=== PATIENT | male | born 1970 | race Two or more races ===

== ENCOUNTER 2020-05-08 01:50 | Inpatient (IN) | payer OTHER, SELFPAY ==
[2020-05-11 02:47] VITALS: BMI 39.0
[2020-05-12] VITALS: BP 100/60; PULSE 57; RESP 20; TEMP 36.3; O2SAT 95
[2020-05-12 04:00] VITALS: BP 109/72; PULSE 68; RESP 16; TEMP 36.7; O2SAT 94
[2020-05-12] MEDS: Levothyroxine Sodium 50 MCG TABLET PO (06:18)
[2020-05-12] MEDS: Omeprazole 20 MG CAPSULE.DR PO (06:18)
[2020-05-12] MEDS: oxyCODONE HCl Immed Release 5 MG TABLET 10 MG PO ×3 (06:20→15:18)
--- NOTE | 2020-05-12 07:40 | PM.PNGS ---
Subjective Subjective Interval history: C/o throat pain and body aches, subjective fevers this morning. Has some mild incisional pain but comfortable. Tolerating clears. Passing flatus and had another BM yesterday. Ready to try solid food. <Ale Nielson PA-C Last Filed: 05/12/20 07:53> Physical Exam Vital Signs and I&O and Narrative: Vital Signs and I&O: Vital Signs Temp 98.1 F 05/12/20 04:00 Pulse 68 05/12/20 04:00 Resp 16 05/12/20 04:00 BP 109/72 05/12/20 04:00 Pulse Ox 94 05/12/20 04:00 Intake & Output 05/11/20 05/12/20 05/12/20 18:59 06:59 18:59 Intake Total 120 / 120 Output Total 350 / 350 Balance -230 / -230 Urine Output (Aver age ml/kg/hr) 0.23 Intake: Intake, Oral Sandi unt 120 / 120 Output: Output, Urine Am ount 350 / 350 Other: Number of Unmeas ured Voids 1 Urine Urinal Urine Color Yellow Body Mass Index 39.0 <Ale Nielson PA-C Last Filed: 05/12/20 07:53> Const: General: no acute distress and alert <SHIVAM Bowers Filed: 05/12/20 07:53> Nutritional Appearance: well nourished <SHIVAM Bowers Filed: 05/12/20 07:53> Orientation/consciousness: patient oriented x3 <SHIVAM Bowers Filed: 05/12/20 07:53> HENMT: Throat: Yes abnormal tonsil (mildly erythematous) <SHIVAM Bowers Last Filed: 05/12/20 07:53> Neck: Neck: Yes supple <SHIVAM Bowers Filed: 05/12/20 07:53> Lymphatic: lymphadenopathy (b/l submandibular nodes) <SHIVAM Bowers Last Filed: 05/12/20 07:53> Resp: Effort & Inspection: normal respiratory effort <SHIVAM Bowers Last Filed: 05/12/20 07:53> Cardio: Rate: regular rate <SHIVAM Bowers Last Filed: 05/12/20 07:53> GI: Inspection: Yes incision (clean, cassidy intact) and Yes other (nondistended) <SHIVAM Bowers Last Filed: 05/12/20 07:53> Palpation (GI): Soft to palpation and Tenderness to palpation present (GI) (mild incisional tenderness) <SHIVAM Bowers Last Filed: 05/12/20 07:53> Auscultation: normal bowel sounds <SHIVAM Bowers Last Filed: 05/12/20 07:53> Skin: General skin exam: no rashes or lesions noted <SHIVAM Bowers Last Filed: 05/12/20 07:53> Neuro: General: patient oriented x3 <SHIVAM Bowers Filed: 05/12/20 07:53> Extrem: General: Yes no clubbing, cyanosis or edema <SHIVAM Bowers Last Filed: 05/12/20 07:53> Progress Note: A&P Assessment and plan (1) SBO (small bowel obstruction): Problem details: secondary to LLQ incisional hernia <SHIVAM Bowers Last Filed: 05/12/20 07:53> Status: Acute <SHIVAM Bowers Last Filed: 05/12/20 07:53> Assessment and Plan: Resolved. Now with good GI function. Will advance to solid diet. <SHIVAM Bowers Last Filed: 05/12/20 07:53> (2) Incisional hernia: Status: Acute <SHIVAM Bowers Last Filed: 05/12/20 07:53> Assessment and Plan: Continue pain control. Likely home today if tolerating solid diet. <SHIVAM Bowers Last Filed: 05/12/20 07:53> pt tolerating diet good GI function pain level ok looks well abd soft ok to dc home instructed to not do any lifting - he says he ahd been doing heavy lifting at work prior to hernia recurrence seen and examined - agree with CHRISSY Nielson <Benson Nowak MD - Last Filed: 05/12/20 07:58> (3) Throat pain: Status: Acute <Ale Nielson PA-C - Last Filed: 05/12/20 07:53> Assessment and Plan: Likely viral. C/o malaise, body aches and subjective fevers. Will obtain Covid-19, flu and strep test. <Ale Nielson PA-C - Last Filed: 05/12/20 07:53> Fall Risk Details Current Medications: Current Medications Generic Name Dose Route Start Last Admin Trade Name Freq PRN Reason Stop Dose Admin Acetaminophen 650 mg 05/12/20 00:00 Acetaminophen 325 Mg Tablet PO Q6H PRN FEVER/MILD PAIN Albuterol Sulfate 2 puff 05/12/20 00:00 Albuterol Sulfate 90 Mcg 18 Gm Inhaler INHALE Q4H PRN ASTHMA Benzocaine 1 lozenge 05/12/20 00:00 05/12/20 04:05 Throat Lozenge, Medicated 1 Lozenge Lozenge MUCOUS MEM 1 lozenge Q4H PRN Administration Sore Throat Docusate Sodium 100 mg 05/12/20 09:00 Docusate Sodium 100 Mg Capsule PO BID [facility] Escitalopram Oxalate 10 mg 05/12/20 09:00 Escitalopram Oxalate 10 Mg Tablet PO DAILY [facility] Famotidine 20 mg 05/12/20 00:00 Famotidine/Pf 20 Mg/2 Ml Vial IVPUSH Q12H PRN Heartburn Fluticasone/Vilanterol 1 puff 05/12/20 08:00 Fluticasone/Vilanterol 100/25 Blst.W.Dev INHALE RDAILY [facility] Hydrochlorothiazide 12.5 mg 05/12/20 09:00 Hydrochlorothiazide 12.5 Mg Tablet PO DAILY [facility] Protocol Levothyroxine Sodium 50 mcg 05/12/20 06:00 05/12/20 06:18 Levothyroxine Sodium 50 Mcg Tablet PO 50 mcg DAILY@0600 [facility] Administration Loratadine 10 mg 05/12/20 09:00 Loratadine 10 Mg Tablet PO DAILY [facility] Montelukast Sodium 10 mg 05/12/20 21:00 Montelukast Sodium 10 Mg Tablet PO BEDTIME [facility] Morphine Sulfate 4 mg 05/12/20 00:00 Morphine Sulfate 4 Mg/Ml Cartridge IVPUSH Q3H PRN Pain, Severe (Pain Scale 7-10) Omeprazole 20 mg 05/12/20 06:30 05/12/20 06:18 Omeprazole 20 Mg Capsule.Dr PO 20 mg DAILY@0630 [facility] Administration Ondansetron HCl 4 mg 05/12/20 00:00 Ondansetron Hcl 4 Mg/2 Ml Vial IVPUSH Q8H PRN Nausea and Vomiting Oxycodone HCl 5 mg 05/12/20 00:00 Oxycodone Hcl Immed Release 5 Mg Tablet PO Q4H PRN Pain, Moderate (Pain Scale 4-6 Oxycodone HCl 10 mg 05/12/20 00:00 05/12/20 06:20 Oxycodone Hcl Immed Release 5 Mg Tablet PO 10 mg Q4H PRN Administration Pain, Severe (Pain Scale 7-10) Sodium Chloride 2 ml 05/12/20 00:00 05/12/20 00:00 0.9 % Sodium Chloride Flush 3 Ml Syringe IVFLUSH 2 ml QSHIFT [facility] Administration <Ale Nielson PA-C - Last Filed: 05/12/20 07:53> Time Spent With Patient Time: Total time spent is greater than 50% in coordination of care (as documented) at patient's floor/unit and/or counseling patient: <SHIVAM Bowers Last Filed: 05/12/20 07:53> Time with patient: less than 15 minutes <SHIVAM Bowers Last Filed: 05/12/20 07:53> No Severe Sepsis: No Severe Sepsis <SHIVAM Bowers Last Filed: 05/12/20 07:53>
[2020-05-12] MEDS: Fluticasone/Vilanterol 100/25 BLST.W.DEV 1 PUFF INHALE (07:53)
[2020-05-12 07:59] VITALS: BP 116/75; PULSE 73; RESP 18; TEMP 37.3; O2SAT 95
[2020-05-12] MEDS: Escitalopram Oxalate 10 MG TABLET PO (08:20)
[2020-05-12] MEDS: Loratadine 10 MG TABLET PO (08:20)
[2020-05-12] MEDS: Docusate Sodium 100 MG CAPSULE PO (08:20)
[2020-05-12] MEDS: 0.9 % Sodium Chloride Flush 3 ML SYRINGE 2 ML IVFLUSH ×2 (08:21)
[2020-05-12] MEDS: hydroCHLOROthiazide 12.5 MG TABLET PO (08:21)
[2020-05-12 11:38] VITALS: BP 119/62; PULSE 76; RESP 18; TEMP 36.9; O2SAT 96
[2020-05-12 11:59] LABS: Influenza A PCR NEGATIVE (Negative); Influenza B PCR NEGATIVE (Negative); Resp Syncy Virus RNA Qual PCR NEGATIVE (Negative)
--- NOTE | 2020-05-12 12:49 | MHC.CM.PN ---
Addendum entered by Rosey Goodwin 05/12/20 13:17: NURSE FRONT END TECHNICIAN NOTIFIED JOHNNIE AT [facility] . THAT PATIENT WAS ANTICIPATED TO BE DISCHARGED TODAY , THEY GONZALES PROVID4 PHNE FOLLOW UP WITH HIM Original Note: nurse career development associate note electronic medical record reviewed , case discused with staff nurse , patient is advancing in his diet and per nursing anticipated to be discharged home today and will not need any services patient instructed to call primary care physician post hospital discharge for folow up. transportation family surgiical follow up per discharge instructions.
--- NOTE | 2020-05-12 13:29 | HO.POSTANES ---
Post Anesthesia Evaluation Post Anesthesia Evaluation Vital Signs: Vital Signs Temp Pulse Resp BP Pulse Ox 05/12/20 11:38 98.4 F 76 18 119/62 96 05/12/20 07:59 99.2 F 73 18 116/75 95 05/12/20 04:00 98.1 F 68 16 109/72 94 Anesthesia: General LMA Mental Status: Awake Pain Control: Satisfactory Nausea/Vomiting: None Hydration: Adequate Anesthesia-Related Issues: No Anes. Related Issues
--- NOTE | 2020-05-16 10:41 | PM.DS ---
DS: Providers Provider Date of admission: 05/08/20 01:50 Primary care physician: Adelina Stacy MD DS: Diagnosis Discharge Diagnosis (1) Incisional hernia: Status: Acute (2) SBO (small bowel obstruction): Status: Acute Problem details: secondary to LLQ incisional hernia DS: Summary Hospital Course Hospital Course: Brief HPI: 49 year old male who had previously undergone emergency peter procedure for perforated diverticulitis. The colostomy was reversed. He subsequently developed a hernia at the LLQ colostomy site which was repaired without mesh in February of 2019. He reports a couple of months after the felt a pop and developed a lump at the repair site. He was able to reduce the lump when it occurred. He reports three days prior to admission he developed nausea, vomiting and abdominal pain. He was able to reduce the hernia himself but had to do it more frequently at home over the past few day. He had been passing flatus but reports no BM since the day before admission. CT scan was performed which revealed dilated small bowel loops with loops of bowel within the LLQ hernia. An NGT was placed in the ED and admission was requested. The patient was admitted to the surgical service for further treatment of the SBO secondary to the recurrent LLQ incisional hernia. The patient was feeling better and clinically appearing well with a reduced hernia. He expressed the desire to have the hernia repaired during this stay. He was scheduled for the procedure the following day. On 05/10/20, repair of recurrent LLQ incisional hernia with mesh was performed by Dr. Benson Nowak without complication. The patient tolerated the procedure well and was admitted back to the medical/surgical floor for observation. His NGT was removed intraoperatively. The patient had an uncomplicated recovery course. He was advanced to a clear liquid diet and then a solid diet. He continued to pass flatus and had bowel movements. He was ambulated. He had good pain control on PO analgesics. His abdominal exam remained benign and his incision was clean. He felt well and ready for discharge. He was discharged to home on 05/12/20 in stable condition. He is to follow up with Dr. Nowak in office in two weeks. PATHOLOGY: Hernia sac: mildly inflamed fibrovascular and adipose tissue consistent with hernia sac. Status at Discharge Functional status at discharge: independent ambulation Overall status at discharge: patient is progressing back to baseline Time Spent with Patient Time attestation: Total time spent providing and/or coordinating discharge services: Physical Exam Vital Signs and I&O and Narrative: Vital Signs and I&O: Vital Signs Temp 98.4 F 05/12/20 11:38 Pulse 76 05/12/20 11:38 Resp 18 05/12/20 11:38 BP 119/62 05/12/20 11:38 Pulse Ox 96 05/12/20 11:38 Body Mass Index 39.0 Const: General: comfortable, no acute distress, well developed and alert Orientation/consciousness: patient oriented x3 Eyes: Sclerae: sclerae normal Resp: Effort & Inspection: normal respiratory effort Cardio: Rate: regular rate GI: Inspection: No distended and Yes incision (clean, no erythema) Palpation (GI): Soft to palpation, Tenderness to palpation present (GI) (mild, incisional), no guarding and No Rebound tenderness present Skin: General skin exam: no rashes or lesions noted Neuro: General: patient oriented x3 Extrem: General: Yes no clubbing, cyanosis or edema DS: Data Data Completed and Pending Labs on day of discharge: Labs from last 24 hours 05/12/20 11:09 COVID-19 PCR NOT DETECTED Discharge Plan Discharge Anticipated Discharge Date/Time: 05/12/20 15:23 Patient Disposition: Home, Self-Care Referrals: Adelina Stacy MD [Primary Care Provider] - Discharge Medications: New oxycodone-acetaminophen [Percocet] 5-325 mg tablet 1 tab PO Q4-6H PRN (Reason: pain) Qty: 26 RF: 0 Continued levothyroxine 50 mcg Tablet 50 mcg PO DAILY RF: 0 hydrochlorothiazide 12.5 mg Capsule 12.5 mg PO QAM RF: 0 docusate sodium [Colace] 100 mg Capsule 100 mg PO BID RF: 0 omeprazole 20 mg Capsule,Delayed Release(Dr/Ec) 20 mg PO DAILY RF: 0 montelukast [Singulair] 10 mg Tablet 10 mg PO DAILY RF: 0 loratadine 10 mg Tablet 10 mg PO DAILY RF: 0 escitalopram oxalate [Lexapro] 10 mg Tablet 10 mg PO DAILY RF: 0 Breo Ellipta 100-25 mcg/dose Blister With Device 1 inh INHALATION DAILY RF: 0 albuterol sulfate 90 mcg/actuation Hfa Aerosol Inhaler 2 puff INHALATION Q4H PRN (Reason: ASTHMA) RF: 0 Discharge Orders: Discharge Order (Routine); Ordered 05/12/20 Ordered By: Benson Nowak Diet: regular diet Activity on Discharge: No heavy lifting Patient Instructions: Open Herniorrhaphy (DC) Discharge Date/Time: 05/12/20 18:15 Visit Report Forms: Patient Portal Discharge page Care Plan Goals: Return to baseline health and activity Health Concerns: SBO secondary to LLQ incisional hernia , s/p repair of LLQ incisional hernia with mesh Plan of Treatment: Advance diet, pain controlAdvance diet, pain control
== END 2020-05-12 18:15 | disposition home or self-care (01) | DRG 337 ==
PROVIDERS: Physician Assistant Surgical; Admitting Provider Surgery; Emergency Provider Emergency Medicine; PCP Family Medicine; Visit Provider Surgery
DX: K43.0 Incisional hernia with obstruction, without gangrene (principal); K66.0 Peritoneal adhesions (postprocedural) (postinfection); Z11.59 Encounter for screening for other viral diseases
CPT/HCPCS: 36415; 71045; 74177; 80048; 80051; 80076; 81003; 81015; 82565; 82947; 83605; 83690; 83735; 84520; 85025; 85027; 85610; 85730; 87040; 87071; 87077; 87147; 87186; 87205; 87631; 87635; 88302; 94640; 94664; 96361; 96374; 96375; 96376; 99285; J0330; J0690; J1200; J2250; J2270; J2405; J3010; Q9967

== ENCOUNTER 2020-05-17 23:09 | Emergency (ER) | payer OTHER, SELFPAY ==
[2020-05-17 23:50] VITALS: BP 128/67; BP 140/67; PULSE 67; PULSE 71; RESP 15; TEMP 36.6; O2SAT 95; O2SAT 96; BMI 35.6
--- NOTE | 2020-05-18 00:52 | ED_ITS ---
HPI - Abdominal Pain General Chief Complaint: Abdominal Pain Stated Complaint: Abd pain Time Seen by Provider: 05/18/20 00:06 History of Present Illness HPI narrative: This is a 49-year-old male who presents status post hernia repair with incisional site pain without drainage, fevers, chills, nausea, vomiting, radiation elsewhere, urinary pain /burning /frequency. In addition, patient endorses that he is able to have bowel movements and continues to pass flatus without any difficulty. He states he does have a follow-up appointment on 05/18 at 9:[address] Nowak. When patient was asked about his pain medication he stated that yes they gave me pain medication but it is not even close to what I was getting in the hospital . Related Data Home Medications Medication Instructions Recorded Confirmed Breo Ellipta 1 inh INHALATION DAILY 05/11/20 05/18/20 albuterol sulfate 2 puff INHALATION Q4H PRN 05/11/20 05/18/20 docusate sodium [Colace] 100 mg PO BID 05/11/20 05/18/20 escitalopram oxalate [Lexapro] 10 mg PO DAILY 05/11/20 05/18/20 hydrochlorothiazide 12.5 mg PO QAM 05/11/20 05/18/20 levothyroxine 50 mcg PO DAILY 05/11/20 05/18/20 loratadine 10 mg PO DAILY 05/11/20 05/18/20 montelukast [Singulair] 10 mg PO DAILY 05/11/20 05/18/20 omeprazole 20 mg PO DAILY 05/11/20 05/18/20 Previous Rx's Medication Instructions Recorded oxycodone-acetaminophen [Percocet] 1 tab PO Q4-6H PRN #26 tab 05/12/20 Allergies Allergy/AdvReac Type Severity Reaction Status Date / Time egg [EGGS] Allergy Unknown ITCHY Verified 05/17/20 23:11 THROAT,SWELLING LIPS JANELL cooking spray Allergy Unknown swelling Uncoded 04/08/20 00:00 in mouth/tongue Review of Systems Review of Systems Pertinent positives and negatives as stated in the HPI. GEN: no fevers, chills, fatigue HEENT: no nasal congestion, sore throat, ear pain NEURO: no headache, dizziness, focal weakness PULM: no cough, shortness of breath CV: no chest pain, palpitations, LE edema ABD: no abdominal pain, nausea, vomiting, diarrhea, + incisional site pain : no dysuria, urgency, frequency SKIN: no rash ROS otherwise negative x 10 Physical Exam Vital Signs and I&O and Narrative: Vital Signs and I&O: Vital Signs Temp 98 F 05/18/20 02:09 Pulse 71 05/17/20 23:50 Resp 15 05/17/20 23:50 BP 140/67 H 05/17/20 23:50 Pulse Ox 96 05/17/20 23:50 Intake & Output 05/17/20 05/18/20 05/18/20 18:59 06:59 18:59 Weight 116.12 kg Body Mass Index 35.6 VITAL SIGNS: Reviewed. GENERAL: Well developed, well nourished, in no acute distress. HEAD: Normocephalic/atraumatic, EYES: PERRLA, EOMI intact without pain, no nystagmus/pallor/icterus noted EARS: Ext canals without abnormality, TMs non-bulging and non-erythematous NOSE: Nares patent bilateral OROPHARYNX: no oral lesions noted, posterior pharynx clear and non-erythematous without noted tonsillar enlargement/erythema/exudates NECK: Supple, no adenopathy LUNGS: Normal breath sounds. No adventitious sounds or accessory muscle use. SpO2<96%> CARDIOVASCULAR: Regular rate and rhythm without noted murmurs, no JVD or lower extremity edema. ABDOMEN: Soft, non-tender, non-distended with bowel sounds. No rigidity. No guarding. No palpable masses or hernias noted, incisional site shows well-approximated and healing appearance with cassidy intact and no purulence drainage, no fluctuance. MUSCULOSKELETAL: No tenderness, deformities, or effusions noted on gross inspection. EXTREMITIES: No cyanosis, clubbing or edema. SKIN: Inspection of the skin reveals no rashes, ulcerations, jaundice, pallor, o r petechiae. NEUROLOGIC: Alert and oriented x 4. Strength and sensation to light touch were grossly intact x 4. Course Course Course Narrative: This is a 49-year-old male with history and clinical presentation consistent with expected postop incisional discomfort. However, labs were completed without significant findings. Patient was discharged in stable condition and courage to keep his scheduled appointment at 9:[address] Nowak. MDM - Abdominal Pain Lab Data Result diagrams: 05/18/20 01:07 05/18/20 01:07 Labs: Lab Results 05/18/20 05/18/20 05/18/20 Range/Units 01:07 01:07 01:17 WBC 11.7 H (4.8-10.8) X10*3/uL RBC 4.30 L (4.60-5.80) X10*6/uL Hgb 12.8 L (14.0-18.0) g/dl Hct 38.9 L (42-52) % MCV 90.5 (80-98) fL MCH 29.8 (27.0-33.0) pg MCHC 32.9 (31.0-36.0) g/dl RDW 13.5 (11.0-16.0) % Plt Count 296 (160-400) X10*3/uL MPV 8.7 L (9.4-12.4) fL Immature Gran % (Auto) 0.6 H (0.0-0.4) % Neut % (Auto) 61.6 (45-73) % Lymph % (Auto) 23.8 (20-40) % [place] % (Auto) 9.8 (2-11) % Eos % (Auto) 3.9 (0-4) % Baso % (Auto) 0.3 (0-2) % Neut # (Auto) 7.2 (2.0-8.3) X10*3/uL Lymph # (Auto) 2.8 (1.2-4.9) X10*3/uL [place] # (Auto) 1.1 (0.1-1.2) X10*3/uL Eos # (Auto) 0.5 H (0.0-0.4) X10*3/uL Baso # (Auto) 0.0 (0.0-0.2) X10*3/uL Abs Immat Gran (auto) 0.07 H (0.00-0.03) X10*3/uL Absolute Nucleated RBC 0.000 (0.0-0.012) X10*3/uL Nucleated RBC % (auto) 0.0 (0.0-0.2) /100WBC Sodium 139 (135-145) mmol/L Potassium 4.4 (3.3-5.1) mmol/l Chloride 101 (96-108) mmol/L Carbon Dioxide 32 H (22-29) mmol/L Anion Gap 10 L (12-20) BUN 25 H (9-16) mg/dL Creatinine 1.24 (0.5-1.4) mg/dL Estim Creat Clear Calc 95.4 Estimated GFR > 60 Random Glucose 104 (60-115) mg/dL Calcium 8.8 (8.4-10.2) mg/dL Total Bilirubin 0.2 (0.0-1.0) mg/dL AST 18 (5-37) U/L ALT 16 (0-40) U/L Alkaline Phosphatase 76 (39-117) U/L Total Protein 6.8 (6.5-8.0) g/dL Albumin 3.8 (3.5-5.0) g/dL Urine Color YELLOW Urine Appearance CLEAR Urine pH 6.0 (5.0-8.0) Ur Specific [place] 1.025 (1.005-1.025) Urine Protein NEG (NEG-TRACE) MG/DL Urine Glucose (UA) NEG (NEG) MG/DL Urine Ketones NEG (NEG) MG/DL Urine Blood NEG (NEG) Urine Nitrite NEG (NEG) Ur Leukocyte Esterase NEG (NEG) Discharge Plan Discharge Clinical Impression: Pain at surgical incision Patient Disposition: Home, Self-Care Instructions: Staple Care (ED) Additional Instructions: 1. Resume all home medications as prescribed. 2. Continue follow-up with Dr. Nowak at 9:00 a.m. in the morning 3. increase fluid hydration, especially water. The patient and/or family acknowledge understanding of results (as applicable), diagnosis, treatment plan, need for follow up, and symptoms that should prompt a return to the emergency room. Prescriptions: No Action levothyroxine 50 mcg Tablet 50 mcg PO DAILY RF: 0 hydrochlorothiazide 12.5 mg Capsule 12.5 mg PO QAM RF: 0 docusate sodium [Colace] 100 mg Capsule 100 mg PO BID RF: 0 omeprazole 20 mg Capsule,Delayed Release(Dr/Ec) 20 mg PO DAILY RF: 0 montelukast [Singulair] 10 mg Tablet 10 mg PO DAILY RF: 0 loratadine 10 mg Tablet 10 mg PO DAILY RF: 0 escitalopram oxalate [Lexapro] 10 mg Tablet 10 mg PO DAILY RF: 0 Breo Ellipta 100-25 mcg/dose Blister With Device 1 inh INHALATION DAILY RF: 0 albuterol sulfate 90 mcg/actuation Hfa Aerosol Inhaler 2 puff INHALATION Q4H PRN (Reason: ASTHMA) RF: 0 oxycodone-acetaminophen [Percocet] 5-325 mg tablet 1 tab PO Q4-6H PRN (Reason: pain) Qty: 26 RF: 0 Referrals: Bneson Nowak MD [Physician] - 05/18/20 9:00 am ( for further outpatient follow-up regarding your incision) Interventions: ED Discharge Assessment Last Done: 05/18/20 03:46 Discharge Date/Time: 05/18/20 03:59 [facility] Past Medical History Source: nursing notes reviewed Medical History Asthma Retroperitoneal hernia with obstruction Surgical History H/O hernia repair Social History Social History Alcohol intake: former Smoking Status: Never smoker Use of substances other than those prescribed or required for medical reasons: No Advance Directives: No Advance Directives Information Provided: No
[2020-05-18 01:12] LABS: MANUAL DIFF FLAG NO
[2020-05-18 01:13] LABS: Basophils Percent Auto 0.3 % (0-2); Eosinophils Absolute Auto 0.5 X10*3/uL (0.0-0.4); Eosinophils Percent Auto 3.9 % (0-4); Hematocrit 38.9 % (42-52); Hemoglobin 12.8 g/dl (14.0-18.0); Imm Gran Abs Auto 0.07 X10*3/uL (0.00-0.03); Imm Gran Pct Auto 0.6 % (0.0-0.4); Lymphocytes Absolute Auto 2.8 X10*3/uL (1.2-4.9); Lymphocytes Percent Auto 23.8 % (20-40); Mean Corpuscular HGB Conc 32.9 g/dl (31.0-36.0); Mean Corpuscular Hemoglobin 29.8 pg (27.0-33.0); Mean Corpuscular Volume 90.5 fL (80-98); Mean Platelet Volume 8.7 fL (9.4-12.4); Monocytes Absolute Auto 1.1 X10*3/uL (0.1-1.2); Monocytes Percent Auto 9.8 % (2-11); Neutrophils Absolute Auto 7.2 X10*3/uL (2.0-8.3); Neutrophils Percent Auto 61.6 % (45-73); Platelet Count 296 X10*3/uL (160-400); Red Cell Distribution Width 13.5 % (11.0-16.0); White Blood Count 11.7 X10*3/uL (4.8-10.8)
[2020-05-18 01:26] LABS: Appearance Urine CLEAR; Color Urine YELLOW; Glucose Urine UA NEG (NEG); Leukocyte Esterase Urine NEG (NEG); Nitrite Urine NEG (NEG); Specific Gravity - Urine 1.025 (1.005-1.025); UACC Culture Trigger NO; Urine Blood NEG (NEG); Urine Ketones NEG (NEG); Urine Protein NEG (NEG-TRACE)
[2020-05-18 01:35] LABS: Alanine Aminotransferase 16 U/L (0-40); Albumin Level 3.8 g/dL (3.5-5.0); Alkaline Phosphatase 76 U/L (39-117); Anion Gap 10 (12-20); Aspartate Amino Transferase 18 U/L (5-37); Bilirubin Total 0.2 mg/dL (0.0-1.0); Blood Urea Nitrogen 25 mg/dL (9-16); Calcium 8.8 mg/dL (8.4-10.2); Carbon Dioxide 32 mmol/L (22-29); Chloride 101 mmol/L (96-108); Creatinine Clr Calc Pharmacy 95.4; Estimated Glomerular Filt Rate > 60; Glucose Random 104 mg/dL (60-115); Potassium 4.4 mmol/l (3.3-5.1); Sodium 139 mmol/L (135-145); Total Protein 6.8 g/dL (6.5-8.0)
[2020-05-18 02:09] VITALS: TEMP 36.6
--- NOTE | 2020-05-18 02:10 | PC.NURSE ---
PATIENT AWAITING MD RE-EVALUATION AND LAB RESULTS ARE BACK
== END 2020-05-18 03:59 | disposition home or self-care (01) ==
PROVIDERS: Emergency Provider Student in an Organized Health Care Education/Training Program
DX: G89.18 Other acute postprocedural pain (principal); Z79.899 Other long term (current) drug therapy
CPT/HCPCS: 36415; 80053; 81003; 85025; 99283; 99284

== ENCOUNTER → 2020-05-18 09:00 | Outpatient (BNVA) | payer OTHER, SELFPAY | PROVIDERS: Visit Provider Surgery | DX: Z48.815 Encounter for surgical aftercare following surgery on the digestive system (principal) | CPT/HCPCS: 99024; 99212 ==

== ENCOUNTER 2020-05-25 10:12 | Inpatient (IN) | payer OTHER, SELFPAY ==
[2020-05-25 10:50] VITALS: BP 133/77; PULSE 82; RESP 16; TEMP 36.7; O2SAT 98; BMI 36.0
--- NOTE | 2020-05-25 10:50 | ED_ITS ---
HPI - Abdominal Pain General Chief Complaint: Abdominal Pain Stated Complaint: abd pain Time Seen by Provider: 05/25/20 10:50 Source: patient Mode of arrival: ambulatory Limitations: no limitations History of Present Illness MD elicited complaint: abdominal pain and other (fevers) Pertinent past history: diverticulitis Onset (ago): day(s) (3) Pain Consistency: constant Location: LLQ (incision site where cassidy are) Severity: moderate Quality: cramping Radiation: LLQ Exacerbating factors: movement Relieving factors: nothing Context: recent surgery/procedure (s/p SBO and hernia revision 05/10/[address] Nowak) Associated symptoms: nausea, fever and chills Related Data Home Medications Medication Instructions Recorded Confirmed albuterol sulfate 2 puff INHALATION Q4H PRN 05/11/20 05/25/20 docusate sodium [Colace] 100 mg PO BID 05/11/20 05/25/20 escitalopram oxalate [Lexapro] 10 mg PO DAILY 05/11/20 05/25/20 levothyroxine 50 mcg PO DAILY 05/11/20 05/25/20 loratadine 10 mg PO DAILY 05/11/20 05/25/20 montelukast [Singulair] 10 mg PO BEDTIME 05/11/20 05/25/20 omeprazole 20 mg PO DAILY 05/11/20 05/25/20 fluticasone propion-salmeterol 1 puff INHALATION BID 05/25/20 05/25/20 [Wixela Inhub] hydrochlorothiazide 25 mg PO DAILY 05/25/20 05/25/20 ipratropium bromide 2 spray INTRANASAL TID PRN 05/25/20 05/25/20 tamsulosin 0.4 mg PO BEDTIME 05/25/20 05/25/20 Allergies Allergy/AdvReac Type Severity Reaction Status Date / Time egg [EGGS] Allergy Unknown ITCHY Verified 05/18/20 09:14 THROAT,SWELLING LIPS JANELL cooking spray Allergy Unknown swelling Uncoded 04/08/20 00:00 in mouth/tongue Review of Systems Review of Systems .ROSabd Constitutional : No Weight loss, pos Fever, pos Chills ENT/Mouth : No sore throat, No Rhinorrhea Eyes: No Swelling, No Redness Cardiovascular : No Chest Pain, No SOB, NoEdema Respiratory : pos Cough, No Sputum, No Wheezing Gastrointestinal : Positive Nausea, Positive Vomiting, no Diarrhea, positive abdominal Pain, No Hematochezia, No Melena, + BM + flatus Genitourinary : No Dysuria, No Urinary Frequency, No Hematuria, No Urgency Musculoskeletal : No joint pain, No Myalgias, No Joint Swelling Skin : No Skin Lesions, No rash Neuro : No Weakness, No Numbness, No Dizziness, No Headache Psych : No Anxiety/Panic, No Depression Heme/Lymph: No Bruising, No Lymphadenopathy Endocrine : No Polyuria, No Polydipsia All other systems reviewed and are negative. Physical Exam Vital Signs: Appearance: Alert. Oriented X3. No acute distress. Eyes: Pupils equal, round and reactive to light. ENT: Pharynx normal. Neck: Normal inspection. Neck supple. CVS: tachycardic heart rate and rhythm. Pulses normal. Respiratory: No respiratory distress. Breath sounds normal. Abdomen: Soft and ttp along L abdomen - mass felt above incision no drainage, no erythema Skin: Skin warm and dry. Normal skin color. Normal skin turgor. Extremities: No lower extremity edema. No calf ttp Neuro: Oriented X 3. No motor deficit. No sensory deficit. Course Course Course Narrative: call to surgery 1225pm Dr. Nowak reports seroma at this time, at this time antibiotics held at surgery's discretion MDM - Abdominal Pain MDM Narrative Medical decision making narrative: 49 yo male hx of diverticulitis s/p p perf with colostomy s/p revision came in with SBO and underwent hernia repair and revision in LLQ today c/o fevers and LLQ pain x 4 days, at this time will need labs, CT scan for mass/infection, CXR for pneumonia, UA, cultures, IV morphine for pain, dispo per results and findings Lab Data Result diagrams: 05/25/20 11:17 05/25/20 11:17 Labs: Lab Results 05/25/20 05/25/20 05/25/20 Range/Units 11:17 11:17 11:17 WBC 14.0 H (4.8-10.8) X10*3/uL RBC 4.21 L (4.60-5.80) X10*6/uL Hgb 12.4 L (14.0-18.0) g/dl Hct 37.9 L (42-52) % MCV 90.0 (80-98) fL MCH 29.5 (27.0-33.0) pg MCHC 32.7 (31.0-36.0) g/dl RDW 13.0 (11.0-16.0) % Plt Count 344 (160-400) X10*3/uL MPV 8.6 L (9.4-12.4) fL Immature Gran % (Auto) 0.6 H (0.0-0.4) % Neut % (Auto) 78.7 H (45-73) % Lymph % (Auto) 7.9 L (20-40) % [place] % (Auto) 10.5 (2-11) % Eos % (Auto) 2.1 (0-4) % Baso % (Auto) 0.2 (0-2) % Lymph # (Auto) 1.1 L (1.2-4.9) X10*3/uL [place] # (Auto) 1.5 H (0.1-1.2) X10*3/uL Eos # (Auto) 0.3 (0.0-0.4) X10*3/uL Baso # (Auto) 0.0 (0.0-0.2) X10*3/uL Abs Immat Gran (auto) 0.09 H (0.00-0.03) X10*3/uL Absolute Neuts (auto) 11.0 H (2.0-8.3) X10*3/uL Absolute Nucleated RBC 0.000 (0.0-0.012) X10*3/uL Nucleated RBC % (auto) 0.0 (0.0-0.2) /100WBC PT 15.6 H (10.8-13.0) SEC INR 1.3 H (0.9-1.1) APTT 38.2 H (24.1-38.0) SEC Sodium 138 (135-145) mmol/L Potassium 4.3 (3.3-5.1) mmol/l Chloride 98 (96-108) mmol/L Carbon Dioxide 33 H (22-29) mmol/L Anion Gap 11 L (12-20) BUN 10 D (9-16) mg/dL Creatinine 0.85 (0.5-1.4) mg/dL Estim Creat Clear Calc TNP Estimated GFR > 60 Random Glucose 95 (60-115) mg/dL Lactic Acid (0.5-2.0) mmol/L Calcium 8.7 (8.4-10.2) mg/dL Magnesium 1.9 (1.6-2.6) mg/dL Total Bilirubin 0.5 (0.0-1.0) mg/dL Direct Bilirubin 0.2 (0.0-0.5) mg/dL AST 14 (5-37) U/L ALT 14 (0-40) U/L Alkaline Phosphatase 79 (39-117) U/L Total Protein 7.2 (6.5-8.0) g/dL Albumin 3.6 (3.5-5.0) g/dL Lipase 15 (8-78) U/L Urine Color Urine Appearance Urine pH (5.0-8.0) Ur Specific [place] (1.005-1.025) Urine Protein (NEG-TRACE) MG/DL Urine Glucose (UA) (NEG) MG/DL Urine Ketones (NEG) MG/DL Urine Blood (NEG) Urine Nitrite (NEG) Ur Leukocyte Esterase (NEG) Urine RBC (0) /HPF Urine WBC (0-4) /HPF Ur Squamous Epith Cells /LPF Urine Bacteria /LPF 05/25/20 05/25/20 Range/Units 11:17 Unknown WBC (4.8-10.8) X10*3/uL RBC (4.60-5.80) X10*6/uL Hgb (14.0-18.0) g/dl Hct (42-52) % MCV (80-98) fL MCH (27.0-33.0) pg MCHC (31.0-36.0) g/dl RDW (11.0-16.0) % Plt Count (160-400) X10*3/uL MPV (9.4-12.4) fL Immature Gran % (Auto) (0.0-0.4) % Neut % (Auto) (45-73) % Lymph % (Auto) (20-40) % [place] % (Auto) (2-11) % Eos % (Auto) (0-4) % Baso % (Auto) (0-2) % Lymph # (Auto) (1.2-4.9) X10*3/uL [place] # (Auto) (0.1-1.2) X10*3/uL Eos # (Auto) (0.0-0.4) X10*3/uL Baso # (Auto) (0.0-0.2) X10*3/uL Abs Immat Gran (auto) (0.00-0.03) X10*3/uL Absolute Neuts (auto) (2.0-8.3) X10*3/uL Absolute Nucleated RBC (0.0-0.012) X10*3/uL Nucleated RBC % (auto) (0.0-0.2) /100WBC PT (10.8-13.0) SEC INR (0.9-1.1) APTT (24.1-38.0) SEC Sodium (135-145) mmol/L Potassium (3.3-5.1) mmol/l Chloride (96-108) mmol/L Carbon Dioxide (22-29) mmol/L Anion Gap (12-20) BUN (9-16) mg/dL Creatinine (0.5-1.4) mg/dL Estim Creat Clear Calc Estimated GFR Random Glucose (60-115) mg/dL Lactic Acid 0.6 (0.5-2.0) mmol/L Calcium (8.4-10.2) mg/dL Magnesium (1.6-2.6) mg/dL Total Bilirubin (0.0-1.0) mg/dL Direct Bilirubin (0.0-0.5) mg/dL AST (5-37) U/L ALT (0-40) U/L Alkaline Phosphatase (39-117) U/L Total Protein (6.5-8.0) g/dL Albumin (3.5-5.0) g/dL Lipase (8-78) U/L Urine Color YELLOW Urine Appearance CLEAR Urine pH 8.0 (5.0-8.0) Ur Specific [place] 1.015 (1.005-1.025) Urine Protein TRACE (NEG-TRACE) MG/DL Urine Glucose (UA) NEG (NEG) MG/DL Urine Ketones NEG (NEG) MG/DL Urine Blood NEG (NEG) Urine Nitrite NEG (NEG) Ur Leukocyte Esterase NEG (NEG) Urine RBC 0 (0) /HPF Urine WBC 0-2 (0-4) /HPF Ur Squamous Epith Cells NONE /LPF Urine Bacteria NONE /LPF Discharge Plan Discharge Prescriptions: No Action levothyroxine 50 mcg Tablet 50 mcg PO DAILY RF: 0 docusate sodium [Colace] 100 mg Capsule 100 mg PO BID RF: 0 omeprazole 20 mg Capsule,Delayed Release(Dr/Ec) 20 mg PO DAILY RF: 0 montelukast [Singulair] 10 mg Tablet 10 mg PO BEDTIME RF: 0 loratadine 10 mg Tablet 10 mg PO DAILY RF: 0 escitalopram oxalate [Lexapro] 10 mg Tablet 10 mg PO DAILY RF: 0 albuterol sulfate 90 mcg/actuation Hfa Aerosol Inhaler 2 puff INHALATION Q4H PRN (Reason: ASTHMA) RF: 0 tamsulosin 0.4 mg capsule 0.4 mg PO BEDTIME RF: 0 fluticasone propion-salmeterol [Wixela Inhub] 500-50 mcg/dose blister with device 1 puff inhalation BID RF: 0 hydrochlorothiazide 25 mg tablet 25 mg PO DAILY RF: 0 ipratropium bromide 0.03 % spray,non-aerosol 2 spray intranasal TID PRN (Reason: congestion) RF: 0 PMFSH Past Medical History Attestation statement: The following information was validated with the patient. Medical History Asthma Incisional hernia SBO (small bowel obstruction) Surgical History H/O hernia repair Family History Family History Mother No problems noted. Father No problems noted. Maternal Grandfather History of prostate cancer Maternal Grandmother History of breast cancer Social History Social History Alcohol intake: former Smoking Status: Former smoker Smoked in Last 30 Days: No Use of substances other than those prescribed or required for medical reasons: No Advance Directives: Yes Advance Directives Information Provided: Yes Advance Directives on File: No
--- NOTE | 2020-05-25 10:53 | CT_ITS ---
EXAMINATION: CT ABDOMEN AND PELVIS WITH CONTRAST CLINICAL INFORMATION: Left lower quadrant abdominal pain, status post surgery. Fever. COMPARISON: Multiple prior abdomen and pelvic CTs with the last CT dated 05/07/2020 TECHNIQUE: Multidetector volumetric images were obtained from the superior aspect of the liver through the pubic symphysis following administration 85 mL of Omnipaque 350 intravenous contrast. Sagittal and coronal reformatted images were obtained on the technologist's workstation. Oral contrast: No This CT examination was performed using dose optimization techniques as appropriate, variously including the following: *Automated exposure control *Adjustment of mA and/or kV according to patient size (this includes techniques or standardized protocols for targeted exams where dose is matched to indication/reason for exam; i.e. extremities or head) *Use of iterative reconstruction technique DLP: 794 mGy-cm FINDINGS: LUNG BASES: A partially seen branching opacity in the left lower lobe posteriorly does not appear to be significantly changed compared to previous CT of 03/09/2019. The lung bases are otherwise unremarkable. LIVER, GALLBLADDER, AND BILIARY TREE: The liver is normal in size, shape, and attenuation. No focal hepatic lesion or biliary ductal dilatation is present. The gallbladder is unremarkable with no evidence of radiopaque gallstones, gallbladder wall thickening, or obvious pericholecystic inflammatory changes. PANCREAS: Unremarkable. SPLEEN: Unremarkable. ADRENAL GLANDS: Unremarkable. KIDNEYS AND URETERS: The kidneys are normal in size, shape, and attenuation. No hydronephrosis, hydroureter, or calculi seen. No perinephric stranding. Peripelvic cysts are noted in the lower pole of the left kidney. BLADDER: Decompressed and therefore not optimally evaluated. GASTROINTESTINAL TRACT: Colocolic anastomosis is noted in the mid pelvis. The colon is normal in caliber. No evidence of colonic wall thickening or pericolonic fat stranding. An appendix is normal. The stomach is partially distended and appears grossly unremarkable. Small bowel is not dilated. ABDOMINAL WALL: Interval surgery for left lower anterolateral abdominal wall hernia. Significant phlegmonous changes are noted at the surgical site involving the abdominal wall, region of abdominal wall musculature and extending into the peritoneal cavity. There are fluid collections embedded within these phlegmonous changes, within the abdominal cavity as well as in the abdominal wall. Together these changes approximately measure 4.6 x 6.7 x 8.6 cm in length, AP and transverse dimensions respectively. Rim enhancement of several of the fluid pockets is noted. Surgical cassidy are noted in the abdominal wall in this region. Laxity of linea alba is redemonstrated. LYMPH NODES: No evidence of pathologically enlarged lymph nodes. VASCULAR: The aortoiliac vessels are normal in caliber. PELVIC VISCERA: Unremarkable. OSSEOUS STRUCTURES: Bilateral pars interarticularis defects at L5 are noted with grade 1 anterolisthesis of L5 over S1. Mild grade 1 anterolisthesis is noted in somewhat stepladder pattern at L1-L2, L2-L3, L3-L4 and L4-L5. Degenerative disc disease is noted at multiple levels with vacuum disc phenomena and varying degree loss of disc heights. IMPRESSION: Interval surgery for left lower quadrant abdominal wall hernia repair. Enhancing phlegmonous changes with peripherally enhancing fluid collections in the region of the surgery extending from abdominal wall superficial subcutaneous tissue into the peritoneal cavity as detailed above, concerning for infectious/inflammatory process. The findings were discussed with Dr. Arambula on 05/25/2020 at 1:15 PM.
--- NOTE | 2020-05-25 10:54 | XR_ITS ---
EXAMINATION: XR CHEST CLINICAL INFORMATION: Fever, cough COMPARISON: Chest radiographs 05/08/2020, 03/09/2019 TECHNIQUE: Portable upright AP view of the chest was obtained. FINDINGS: The lungs are clear. There is no airspace consolidation or groundglass opacity. The costophrenic sulci are well-defined. There is no effusion. The heart is normal in size. The vascularity is normal. The hilar and mediastinal contours and bony structures are unremarkable. IMPRESSION: Unremarkable examination.
[2020-05-25 11:26] LABS: MANUAL DIFF FLAG NO
[2020-05-25 11:34] LABS: INTERNATIONAL NORM RATIO 1.3 (0.9-1.1); Prothrombin Time 15.6 SEC (10.8-13.0)
[2020-05-25 11:36] LABS: Partial Thromboplastin Time 38.2 SEC (24.1-38.0)
[2020-05-25 11:43] LABS: Lactic Acid 0.6 mmol/L (0.5-2.0)
[2020-05-25 11:44] LABS: Basophils Percent Auto 0.2 % (0-2); Eosinophils Absolute Auto 0.3 X10*3/uL (0.0-0.4); Eosinophils Percent Auto 2.1 % (0-4); Hematocrit 37.9 % (42-52); Hemoglobin 12.4 g/dl (14.0-18.0); Imm Gran Abs Auto 0.09 X10*3/uL (0.00-0.03); Imm Gran Pct Auto 0.6 % (0.0-0.4); Lymphocytes Absolute Auto 1.1 X10*3/uL (1.2-4.9); Lymphocytes Percent Auto 7.9 % (20-40); Mean Corpuscular HGB Conc 32.7 g/dl (31.0-36.0); Mean Corpuscular Hemoglobin 29.5 pg (27.0-33.0); Mean Platelet Volume 8.6 fL (9.4-12.4); Monocytes Absolute Auto 1.5 X10*3/uL (0.1-1.2); Monocytes Percent Auto 10.5 % (2-11); Neutrophils Percent Auto 78.7 % (45-73); Platelet Count 344 X10*3/uL (160-400); Red Blood Count 4.21 X10*6/uL (4.60-5.80)
[2020-05-25 11:50] LABS: Alanine Aminotransferase 14 U/L (0-40); Albumin Level 3.6 g/dL (3.5-5.0); Alkaline Phosphatase 79 U/L (39-117); Anion Gap 11 (12-20); Aspartate Amino Transferase 14 U/L (5-37); Bilirubin Direct 0.2 mg/dL (0.0-0.5); Bilirubin Total 0.5 mg/dL (0.0-1.0); Blood Urea Nitrogen 10 mg/dL (9-16); Calcium 8.7 mg/dL (8.4-10.2); Carbon Dioxide 33 mmol/L (22-29); Chloride 98 mmol/L (96-108); Estimated Glomerular Filt Rate > 60; Glucose Random 95 mg/dL (60-115); Lipase 15 U/L (8-78); Magnesium 1.9 mg/dL (1.6-2.6); Potassium 4.3 mmol/l (3.3-5.1); Sodium 138 mmol/L (135-145); Total Protein 7.2 g/dL (6.5-8.0)
[2020-05-25] MEDS: Acetaminophen 325 MG TABLET 650 MG PO ×2 (12:01→22:49)
[2020-05-25] MEDS: Morphine Sulfate 4 MG/ML CARTRIDGE IVPUSH (12:02)
[2020-05-25] MEDS: ondansetron HCL 4 MG/2 ML VIAL IVPUSH (12:04)
[2020-05-25] MEDS: 0.9 % Sodium Chloride 1,000 ML 999 ML IVCONT (12:04)
[2020-05-25 12:20] LABS: Appearance Urine CLEAR; Color Urine YELLOW; Glucose Urine UA NEG (NEG); Leukocyte Esterase Urine NEG (NEG); Nitrite Urine NEG (NEG); Specific Gravity - Urine 1.015 (1.005-1.025); Urine Blood NEG (NEG); Urine Ketones NEG (NEG); Urine Protein TRACE MG/DL (NEG-TRACE)
[2020-05-25 12:26] LABS: RBC Urine 0 /HPF (0); WBC Urine 0-2 /HPF (0-4)
[2020-05-25] MEDS: iohexoL 350 MG/ML 100 ML INFUS..BTL IV (12:30)
[2020-05-25] MEDS: Lidocaine HCl 1 % 20 ML VIAL SUBCUT (12:46)
--- NOTE | 2020-05-25 13:02 | PC.NURSE ---
dr. stallings at bedside for incision and drainage to incision site.
--- NOTE | 2020-05-25 13:17 | P.HPGS_ITS ---
History of Present Illness History of Present Illness Chief complaint: abd pain Narrative: Brady Dale is a 49 year old male who came into the emergency room today because of pain on his incision. He underwent repair of recurrent incisional hernia with mesh last 05/10/2020 as an inpatient. This hernia was from his old colostomy site. He had Hattie's procedure for perforated diverticulitis in 2016. He had this reversed. He had developed 2 hernias on this previous colostomy site. He also says that he had some sweats at home and his temperature was 100.9 degrees this morning. He has good oral intake and denies any nausea or vomiting. He has good bowel movements. He was concerned about this incisional pain along with the low-grade temperature so he came to the emergency room. He had a CAT scan done which showed a fluid collection in the subcutaneous layer above the fascia . I had aspirated this in the ER using anesthesia with a needle and this had shown a seroma. He however says that he wanted to stay in the hospital because of his incisional pain. Review of Systems Constitutional: Constitutional: Reports excessive sweating Eyes: Eyes: Denies change in vision Cardiovascular: Cardiovascular: Denies chest pain Respiratory: Respiratory: Denies cough Gastrointestinal: Gastrointestinal: Reports constipation, Denies GI cramping, Denies diarrhea and Denies vomiting Genitourinary: Genitourinary: Denies dysuria Musculoskeletal: Musculoskeletal: Denies back pain Neurologic: Denies Other visual disturbances and Denies seizure-like activity Psychiatric: Psychiatric: Reports anxiety Endocrine: Endocrine: Reports excessive sweating PMFSH Past Medical History Medical History Anxiety Asthma Incisional hernia SBO (small bowel obstruction) Functional capacity: independent ambulation Family History Family History Mother No problems noted. Father No problems noted. Maternal Grandfather History of prostate cancer Maternal Grandmother History of breast cancer Family history: reviewed and not pertinent Surgical History Surgical History H/O hernia repair Status post Hattie's procedure Social History Social History Alcohol intake: former Smoking Status: Former smoker Smoked in Last 30 Days: No Use of substances other than those prescribed or required for medical reasons: No Advance Directives: Yes Advance Directives Information Provided: Yes Advance Directives on File: No Meds Allergies Allergy/AdvReac Type Severity Reaction Status Date / Time egg [EGGS] Allergy Unknown ITCHY Verified 05/18/20 09:14 THROAT,SWELLING LIPS JANELL cooking spray Allergy Unknown swelling Uncoded 04/08/20 00:00 in mouth/tongue Home Medications Medication Instructions Recorded Confirmed Type albuterol sulfate 2 puff INHALATION Q4H PRN 05/11/20 05/25/20 History docusate sodium [Colace] 100 mg PO BID 05/11/20 05/25/20 History escitalopram oxalate [Lexapro] 10 mg PO DAILY 05/11/20 05/25/20 History levothyroxine 50 mcg PO DAILY 05/11/20 05/25/20 History loratadine 10 mg PO DAILY 05/11/20 05/25/20 History montelukast [Singulair] 10 mg PO BEDTIME 05/11/20 05/25/20 History omeprazole 20 mg PO DAILY 05/11/20 05/25/20 History fluticasone propion-salmeterol 1 puff INHALATION BID 05/25/20 05/25/20 History [Wixela Inhub] hydrochlorothiazide 25 mg PO DAILY 05/25/20 05/25/20 History ipratropium bromide 2 spray INTRANASAL TID PRN 05/25/20 05/25/20 History tamsulosin 0.4 mg PO BEDTIME 05/25/20 05/25/20 History Physical Exam Const: General: no acute distress Eyes: Sclerae: sclerae normal Neck: Neck: No lymphadenopathy Resp: Auscultation: clear to auscultation bilaterally Cardio: Rhythm: regular rhythm GI: Other: Soft, no guarding, no rebound, hernia repair site on the left with cassidy intact, no cellulitis, no significant redness no drainage, incision well healed Extrem: General: Yes normal to inspection Psych: Affect: Anxious affect present Results Results Labs: Short CBC 05/25/20 Range/Units 11:17 WBC 14.0 H (4.8-10.8) X10*3/uL Hgb 12.4 L (14.0-18.0) g/dl Hct 37.9 L (42-52) % Plt Count 344 (160-400) X10*3/uL BMP 05/25/20 11:17 Sodium 138 Potassium 4.3 Chloride 98 Carbon Dioxide 33 H BUN 10 D Creatinine 0.85 Calcium 8.7 Liver Function 05/25/20 Range/Units 11:17 Total Bilirubin 0.5 (0.0-1.0) mg/dL Direct Bilirubin 0.2 (0.0-0.5) mg/dL AST 14 (5-37) U/L ALT 14 (0-40) U/L Alkaline Phosphatase 79 (39-117) U/L Albumin 3.6 (3.5-5.0) g/dL Urine 05/25/20 Range/Units Unknown Urine Color YELLOW Urine Appearance CLEAR Urine pH 8.0 (5.0-8.0) Ur Specific [place] 1.015 (1.005-1.025) Urine Protein TRACE (NEG-TRACE) MG/DL Urine Glucose (UA) NEG (NEG) MG/DL Assessment and Plan (1) H/O hernia repair: Status: Acute He had undergone repair of recurrent incisional hernia last May 10, 2020. He came in because of pain on the incision. I have reviewed this CAT scan and this shows what seemed to be a fluid collection in the subcutaneous layer. The hernia repair site is intact. There is no evidence of any intra-abdominal pathology and there is no signs of any bowel obstruction. I therefore did a needle aspiration of the fluid under local anesthesia. This had showed seroma fluid with clear thin, serosanguineous fluid aspirated. I explained this to him and he wanted to be admitted because of his incisional pain. We will repeat his white count tomorrow. He will be started on Ancef. I had done cultures of the seroma. There is no evidence of any cellulitis or abscess at this time. He is also hemodynamically stable. (2) Seroma: Status: Acute Procedures Abscess I/D Anesthetic used: lidocaine 1% Technique: needle aspiration Amount of fluid (mL): 10 Packing used?: none Complications: other (There were no complications) Additional comments: I prepped and draped the area of the incision. I removed all his skin cassidy. I used a gauge 18 needle to aspirate the fluid collection in the subcutaneous layer after infiltration with lidocaine 1%. This showed clear, thin, serosanguineous fluid. There was no pus. I had sent this for cultures.
[2020-05-25 14:49] VITALS: BP 122/77; PULSE 86; RESP 16; TEMP 37.1; O2SAT 98
[2020-05-25] MEDS: ceFAZolin Sodium/Dextrose,Iso 2 GM/50 ML PIGGYBACK IV ×2 (14:54→22:42)
--- NOTE | 2020-05-25 16:00 | PC.NURSE ---
REPORT TO FLOOR NURSE. PT RTG
[2020-05-25] MEDS: Morphine Sulfate 2 MG/ML CARTRIDGE IVPUSH ×2 (17:36→22:42)
[2020-05-25] MEDS: oxyCODONE HCl Immed Release 5 MG TABLET 10 MG PO (19:22)
[2020-05-25 19:34] VITALS: BP 114/67; PULSE 97; RESP 18; TEMP 37.1; O2SAT 96
[2020-05-25] MEDS: Docusate Sodium 100 MG CAPSULE PO (22:40)
[2020-05-25] MEDS: Montelukast Sodium 10 MG TABLET PO (22:41)
[2020-05-25] MEDS: Tamsulosin HCL 0.4 MG CAPSULE PO (22:41)
[2020-05-26] VITALS: BP 101/70; PULSE 96; RESP 18; TEMP 36.6; O2SAT 95
[2020-05-26 03:48] VITALS: BP 155/67; PULSE 89; RESP 16; TEMP 37.1; O2SAT 96
[2020-05-26] MEDS: oxyCODONE HCl Immed Release 5 MG TABLET 10 MG PO ×4 (05:38→22:33)
[2020-05-26] MEDS: ceFAZolin Sodium/Dextrose,Iso 2 GM/50 ML PIGGYBACK IV ×3 (05:40→22:32)
[2020-05-26 06:53] LABS: Hematocrit 36.7 % (42-52); Mean Corpuscular HGB Conc 32.7 g/dl (31.0-36.0); Mean Corpuscular Hemoglobin 29.6 pg (27.0-33.0); Mean Corpuscular Volume 90.4 fL (80-98); Platelet Count 361 X10*3/uL (160-400); Red Blood Count 4.06 X10*6/uL (4.60-5.80); Red Cell Distribution Width 12.9 % (11.0-16.0); White Blood Count 16.9 X10*3/uL (4.8-10.8)
[2020-05-26 07:54] VITALS: BP 138/68; PULSE 85; RESP 18; TEMP 37.6; O2SAT 94
--- NOTE | 2020-05-26 08:14 | PM.PNGS ---
Subjective Subjective Patient reports: feels better, tolerating a regular diet and flatus Interval history: no events overnight says he feels ok Physical Exam Vital Signs: Vital Signs: Vital Signs Temp Pulse Resp BP Pulse Ox 05/26/20 07:54 99.7 F 85 18 138/68 94 05/26/20 03:48 98.8 F 89 16 155/67 H 96 05/26/20 00:00 98 F 96 18 101/70 95 05/25/20 19:34 98.8 F 97 18 114/67 96 05/25/20 14:49 98.7 F 86 16 122/77 98 05/25/20 10:50 98.1 F 82 16 133/77 98 Body Mass Index 36.0 Const: Other: sitting up on recliner General: comfortable and no acute distress Cardio: Rate: regular rate GI: Other: abd soft, no gaurding or rebound, minimal tenderness on hernia repair site, no cellulitis, no signicant induration, no signs of recurrent hernia Progress Note: A&P Assessment and plan (1) Seroma: Problem details: He has a wound seroma that was aspirated yesterday looks well, feels much better WBC elevated - no fever clinically looks well no GI complaints continue IV abx will hold off on discharge in view of leukocytosis - repeat tomorrow Status: Acute Fall Risk Details Current Medications: Current Medications Generic Name Dose Route Start Last Admin Trade Name Freq PRN Reason Stop Dose Admin Acetaminophen 650 mg 05/25/20 13:10 05/25/20 22:49 Acetaminophen 325 Mg Tablet PO 650 mg Q4H PRN Administration pain Albuterol Sulfate 2 puff 05/25/20 13:14 Albuterol Sulfate 90 Mcg 18 Gm Inhaler INHALE Q4H PRN ASTHMA Docusate Sodium 100 mg 05/25/20 21:00 05/25/20 22:40 Docusate Sodium 100 Mg Capsule PO 100 mg BID LINDSAY Administration Escitalopram Oxalate 10 mg 05/26/20 09:00 Escitalopram Oxalate 10 Mg Tablet PO DAILY LINDSAY Fluticasone/Vilanterol 1 puff 05/26/20 08:00 05/26/20 07:51 Fluticasone/Vilanterol 200/25 Blst.W.Dev INHALE Not Given RDAILY LINDSAY Hydrochlorothiazide 25 mg 05/26/20 09:00 Hydrochlorothiazide 25 Mg Tablet PO DAILY [facility] Protocol Cefazolin Sodium/Dextrose 2 gm in 50 mls @ 100 mls/hr 05/25/20 14:00 05/26/20 06:27 Ancef IV Infused Q8H [facility] Infusion Ipratropium [place] 2 spray 05/25/20 13:14 Ipratropium [place] 0.03 % 30 Ml [place] NOSTRIL-B TID PRN congestion Levothyroxine Sodium 50 mcg 05/26/20 09:00 Levothyroxine Sodium 50 Mcg Tablet PO DAILY LINDSAY Loratadine 10 mg 05/26/20 09:00 Loratadine 10 Mg Tablet PO DAILY LINDSAY Montelukast Sodium 10 mg 05/25/20 21:00 05/25/20 22:41 Montelukast Sodium 10 Mg Tablet PO 10 mg BEDTIME LINDSAY Administration Morphine Sulfate 2 mg 05/25/20 17:29 05/25/20 22:42 Morphine Sulfate 2 Mg/Ml Cartridge IVPUSH 2 mg Q4H PRN Administration Pain, Severe (Pain Scale 7-10) Omeprazole 20 mg 05/26/20 09:00 Omeprazole 20 Mg Capsule.Dr PO DAILY [facility] Oxycodone HCl 10 mg 05/25/20 13:16 05/26/20 05:38 Oxycodone Hcl Immed Release 5 Mg Tablet PO 10 mg Q4H PRN Administration pain Pharmacy Consult 1 each 05/25/20 10:53 Consult Rx Perform Med Rec MISCELLANE ONCE PRN Consult order Tamsulosin HCl 0.4 mg 05/25/20 21:00 05/25/20 22:41 Tamsulosin Hcl 0.4 Mg Capsule PO 0.4 mg BEDTIME LINDSAY Administration Time Spent With Patient Time: Total time spent is greater than 50% in coordination of care (as documented) at patient's floor/unit and/or counseling patient: Time with patient: 15 - 24 minutes
[2020-05-26] MEDS: Levothyroxine Sodium 50 MCG TABLET PO (08:51)
[2020-05-26] MEDS: Omeprazole 20 MG CAPSULE.DR PO (08:51)
[2020-05-26] MEDS: hydroCHLOROthiazide 25 MG TABLET PO (08:51)
[2020-05-26] MEDS: Loratadine 10 MG TABLET PO (08:51)
[2020-05-26] MEDS: Escitalopram Oxalate 10 MG TABLET PO (08:52)
--- NOTE | 2020-05-26 11:42 | MHC.CM.PN ---
NURSE CAB WORKER NOTE ELECTRONIC MEDICAl record reviewed alomng with case discussed with staff nurse , met withn patient expalined the yamil trent the nurse health care administrator in the transition from the hospitla to home , educated about a health care proxy patient is a readmission s/p has recurrent incisional hernia repairs with mesh and later discharged home , came to the er with abd pain at incision site founds tho have a a wound seroma which was aspirated by the surgeon in the er and left open to air , patient is on iv abx and pain medicationn he lives with his a four children he has [facility] which has provided him with vicki hickey cane , walker he has [facility] [employer] [facility] he used when he was obese , but has not been using it since his weight lss, he reported to me that [facility] ins is looking into having him have anonther seep study. he is independent nut suffers from pain as he o he has two herniated disks . he continues to drive and is independent in his adls (some times it takes him more time), and mobility he reports that in the morning until about evening discharge plan home with no services pcp patient to contact his pcp at the [facility] [address] for post hospitla discharge surgical follow up as indicated on the discharge instructions transportation family observation paperwork explained to patient and left at bedside for revie by patient with attahched name [email or web address]
[2020-05-26 11:53] VITALS: BP 141/72; PULSE 85; RESP 19; TEMP 37.8; O2SAT 95
[2020-05-26 15:40] VITALS: BP 116/70; PULSE 84; RESP 20; TEMP 37.4; O2SAT 94
[2020-05-26 19:40] VITALS: BP 121/60; PULSE 80; RESP 18; TEMP 35.5; O2SAT 94
[2020-05-26] MEDS: Acetaminophen 325 MG TABLET 650 MG PO (22:32)
[2020-05-26] MEDS: Tamsulosin HCL 0.4 MG CAPSULE PO (22:34)
[2020-05-26] MEDS: Montelukast Sodium 10 MG TABLET PO (22:34)
[2020-05-26] MEDS: Docusate Sodium 100 MG CAPSULE PO (22:34)
[2020-05-27] VITALS (7 sets, daily range): BP systolic 104–159; BP diastolic 55–93; PULSE 66–97; RESP 17–20; TEMP 35.9–38.7; O2SAT 93–98
[2020-05-27] MEDS: oxyCODONE HCl Immed Release 5 MG TABLET 10 MG PO ×4 (04:31→19:42)
[2020-05-27] MEDS: ceFAZolin Sodium/Dextrose,Iso 2 GM/50 ML PIGGYBACK IV (05:50)
[2020-05-27 06:57] LABS: Basophils Percent Auto 0.1 % (0-2); Eosinophils Absolute Auto 0.3 X10*3/uL (0.0-0.4); Eosinophils Percent Auto 1.6 % (0-4); Hematocrit 36.5 % (42-52); Hemoglobin 12.1 g/dl (14.0-18.0); Imm Gran Abs Auto 0.14 X10*3/uL (0.00-0.03); Imm Gran Pct Auto 0.9 % (0.0-0.4); Lymphocytes Absolute Auto 1.2 X10*3/uL (1.2-4.9); Lymphocytes Percent Auto 7.7 % (20-40); MANUAL DIFF FLAG SCAN; Mean Corpuscular HGB Conc 33.2 g/dl (31.0-36.0); Mean Corpuscular Hemoglobin 29.7 pg (27.0-33.0); Mean Corpuscular Volume 89.7 fL (80-98); Mean Platelet Volume 8.9 fL (9.4-12.4); Monocytes Absolute Auto 1.6 X10*3/uL (0.1-1.2); Monocytes Percent Auto 10.5 % (2-11); Neutrophils Absolute Auto 12.3 X10*3/uL (2.0-8.3); Neutrophils Percent Auto 79.2 % (45-73); Platelet Count 357 X10*3/uL (160-400); Red Blood Count 4.07 X10*6/uL (4.60-5.80); Red Cell Distribution Width 12.8 % (11.0-16.0); SCAN SMEAR FLAG 1; White Blood Count 15.6 X10*3/uL (4.8-10.8)
[2020-05-27 07:53] LABS: SLIDE REVIEW VERIFIED
--- NOTE | 2020-05-27 07:57 | P.PNGS_ITS ---
Subjective Subjective Interval history: C/o chills followed by sweats overnight and some pain this morning. <Ale Nielson PA-C Last Filed: 05/27/20 08:01> Physical Exam Vital Signs: Vital Signs: Vital Signs Temp Pulse Resp BP Pulse Ox 05/27/20 07:38 96.7 F L 70 20 114/61 93 05/27/20 04:00 97.8 F 90 18 159/93 H 98 05/27/20 00:00 97.9 F 66 18 116/55 L 94 05/26/20 19:40 96 F L 80 18 121/60 94 05/26/20 15:40 99.3 F 84 20 116/70 94 05/26/20 11:53 100.1 F 85 19 141/72 H 95 Body Mass Index 36.0 <SHIVAM Bowers Last Filed: 05/27/20 08:01> Const: General: comfortable, no acute distress and alert <Ale Nielson PA-C Meche Filed: 05/27/20 08:01> Orientation/consciousness: patient oriented x3 <Ale Nielson PA-C Filed: 05/27/20 08:01> Eyes: Sclerae: sclerae normal <Ale Nielson PA-C Filed: 05/27/20 08:01> Resp: Effort & Inspection: normal respiratory effort <Ale Nielson PA-C Meche Filed: 05/27/20 08:01> Cardio: Rate: regular rate <Ale Nielson PA-C Meche Filed: 05/27/20 08:01> GI: Inspection: No distended and Yes incision (pale erythema at incision, surrounding induration, no fluctuance) <Ale Nielson PA-C Meche Last Filed: 05/27/20 08:01> Palpation (GI): Soft to palpation, Tenderness to palpation present (GI) (at inci bradly site), no guarding and No Rebound tenderness present <SHIVAM Bowers Last Filed: 05/27/20 08:01> Skin: Rashes: no rashes <Ale Nielson PA-C Meche Last Filed: 05/27/20 08:01> Neuro: General: patient oriented x3 <SHIVAM Bowers Last Filed: 05/27/20 08:01> Extrem: General: Yes no clubbing, cyanosis or edema <SHIVAM Bowers Last Filed: 05/27/20 08:01> Progress Note: A&P Assessment and plan (1) H/O hernia repair: Status: Acute <SHIVAM Bowers Last Filed: 05/27/20 08:01> (2) Seroma: Status: Acute <SHIVAM Bowers Last Filed: 05/27/20 08:01> Assessment and Plan: Wound aspirated by Dr. Nowak- serous fluid, no evidence of purulence. Started on IV cefazolin due to leukocytosis and discharge held yesterday. WBC slightly improved this morning. Will change abx to IV zosyn. Reassess later today. The incision is indurated but no evidence of abscess. <Ale Nielson PA-C - Last Filed: 05/27/20 08:01> says he had some chills no fever has been ambulating good oral intake mild redness over incision WBC decreasing will keep on IV abx - switch to Zosyn for broader coverage - cultures of wound seroma no growth plan to keep on IV abx until WBC continues to trend down seen and examined independenly - agree with CHRISSY Nielson <Benson Nowak MD - Last Filed: 05/27/20 10:32> Fall Risk Details Current Medications: Current Medications Generic Name Dose Route Start Last Admin Trade Name Freq PRN Reason Stop Dose Admin Acetaminophen 650 mg 05/25/20 13:10 05/26/20 22:32 Acetaminophen 325 Mg Tablet PO 650 mg Q4H PRN Administration pain Albuterol Sulfate 2 puff 05/25/20 13:14 Albuterol Sulfate 90 Mcg 18 Gm Inhaler INHALE Q4H PRN ASTHMA Docusate Sodium 100 mg 05/25/20 21:00 05/26/20 22:34 Docusate Sodium 100 Mg Capsule PO 100 mg BID LINDSAY Administration Escitalopram Oxalate 10 mg 05/26/20 09:00 05/26/20 08:52 Escitalopram Oxalate 10 Mg Tablet PO 10 mg DAILY LINDSAY Administration Fluticasone/Vilanterol 1 puff 05/26/20 08:00 05/26/20 07:51 Fluticasone/Vilanterol 200/25 Blst.W.Dev INHALE Not Given RDAILY LINDSAY Hydrochlorothiazide 25 mg 05/26/20 09:00 05/26/20 08:51 Hydrochlorothiazide 25 Mg Tablet PO 25 mg DAILY LINDSAY Administration Protocol Piperacillin Sod/Tazobactam 50 mls @ 100 mls/hr 05/27/20 08:00 Sod 3.375 gm/ Sodium Chloride IV Q12H LINDSAY Ipratropium [place] 2 spray 05/25/20 13:14 Ipratropium [place] Maco 0.03 % 30 Ml [place] NOSTRIL-B TID PRN congestion Levothyroxine Sodium 50 mcg 05/26/20 09:00 05/26/20 08:51 Levothyroxine Sodium 50 Mcg Tablet PO 50 mcg DAILY LINDSAY Administration Loratadine 10 mg 05/26/20 09:00 05/26/20 08:51 Loratadine 10 Mg Tablet PO 10 mg DAILY LINDSAY Administration Montelukast Sodium 10 mg 05/25/20 21:00 05/26/20 22:34 Montelukast Sodium 10 Mg Tablet PO 10 mg BEDTIME LINDSAY Administration Morphine Sulfate 2 mg 05/25/20 17:29 05/25/20 22:42 Morphine Sulfate 2 Mg/Ml Cartridge IVPUSH 2 mg Q4H PRN Administration Pain, Severe (Pain Scale 7-10) Omeprazole 20 mg 05/26/20 09:00 05/26/20 08:51 Omeprazole 20 Mg Capsule.Dr PO 20 mg DAILY LINDSAY Administration Oxycodone HCl 10 mg 05/25/20 13:16 05/27/20 04:31 Oxycodone Hcl Immed Release 5 Mg Tablet PO 10 mg Q4H PRN Administration pain Pharmacy Consult 1 each 05/25/20 10:53 Consult Rx Perform Med Rec MISCELLANE ONCE PRN Consult order Tamsulosin HCl 0.4 mg 05/25/20 21:00 05/26/20 22:34 Tamsulosin Hcl 0.4 Mg Capsule PO 0.4 mg BEDTIME LINDSAY Administration <Ale Nielson PA-C - Last Filed: 05/27/20 08:01> Time Spent With Patient Time: Total time spent is greater than 50% in coordination of care (as documented) at patient's floor/unit and/or counseling patient: <Ale Nielson PA-C - Last Filed: 05/27/20 08:01> Time with patient: 15 - 24 minutes <Ale Nielson PA-C - Last Filed: 05/27/20 08:01>
[2020-05-27] MEDS: Docusate Sodium 100 MG CAPSULE PO ×2 (08:09→22:22)
[2020-05-27] MEDS: Omeprazole 20 MG CAPSULE.DR PO (08:09)
[2020-05-27] MEDS: Levothyroxine Sodium 50 MCG TABLET PO (08:09)
[2020-05-27] MEDS: Escitalopram Oxalate 10 MG TABLET PO (08:09)
[2020-05-27] MEDS: hydroCHLOROthiazide 25 MG TABLET PO (08:09)
[2020-05-27] MEDS: Loratadine 10 MG TABLET PO (08:09)
[2020-05-27] MEDS: Piperacillin Sodium/Tazobactam 3.375 GM in 0.9 % Sodium Chloride 50 ML IV ×3 (10:07→22:21)
[2020-05-27] MEDS: Fluticasone/Vilanterol 200/25 BLST.W.DEV 1 PUFF INHALE (10:35)
--- NOTE | 2020-05-27 13:51 | MHC.CM.PN ---
nurse care marie rosado meidcal record reviewed patient is stil having some incisional pain and had the chills last night [id number] and againg this morning with sweats, patient s antibiotic was added and no plans for discharge today , progressive care nurse to continue to follow discharge plan home with anticipated no servcies
--- NOTE | 2020-05-27 15:07 | PM.EVENT ---
Event Note Event Note: continues to feel well no fever some redness on the incision patient looks well has been ambulating white count coming down but in view of the presence of mesh, I am keeping him for more doses of IV antibiotics this was explained to him and he says he will stay repeat CBC ordered for tomorrow
[2020-05-27] MEDS: Acetaminophen 325 MG TABLET 650 MG PO (16:14)
[2020-05-27] MEDS: Montelukast Sodium 10 MG TABLET PO (22:21)
[2020-05-27] MEDS: Tamsulosin HCL 0.4 MG CAPSULE PO (22:22)
[2020-05-28] VITALS (7 sets, daily range): BP systolic 111–145; BP diastolic 67–88; PULSE 84–108; RESP 16–19; TEMP 36.4–37.9; O2SAT 93–96
[2020-05-28] MEDS: oxyCODONE HCl Immed Release 5 MG TABLET 10 MG PO ×4 (00:37→19:09)
[2020-05-28] MEDS: Piperacillin Sodium/Tazobactam 3.375 GM in 0.9 % Sodium Chloride 50 ML IV ×2 (03:39→08:28)
[2020-05-28] MEDS: hydroCHLOROthiazide 25 MG TABLET PO (08:25)
[2020-05-28] MEDS: Omeprazole 20 MG CAPSULE.DR PO (08:26)
[2020-05-28] MEDS: Docusate Sodium 100 MG CAPSULE PO ×2 (08:26→21:06)
[2020-05-28] MEDS: Escitalopram Oxalate 10 MG TABLET PO (08:26)
[2020-05-28] MEDS: Loratadine 10 MG TABLET PO (08:26)
[2020-05-28] MEDS: Levothyroxine Sodium 50 MCG TABLET PO (08:26)
[2020-05-28] MEDS: Fluticasone/Vilanterol 200/25 BLST.W.DEV 1 PUFF INHALE (08:39)
--- NOTE | 2020-05-28 13:16 | PM.PNGS ---
Subjective Subjective Interval history: Patient reports he has recurrence of the seroma in the left lower quadrant at the previous ventral hernia repair site. Patient had this area aspirated at the beginning of the week. The fluid has slowly reaccumulated. He has some mild redness of the overlying scanned with some induration of the skin. Patient reports his IV antibiotics were changed from IV Kefzol to Zosyn 1 or 2 days ago. He reports he felt better on the IV capsule and would like to have the IV antibiotics changed back to capsule. Patient reports he is up and ambulating. He had a T-max of 101.7?. T current 100.2. All other vital signs are within normal limits. He is tolerating regular diet and denies any nausea vomiting. His only complaint is pain at the seroma site. Last white blood cell count was 15.6 yesterday. No labs were ordered for today. Physical Exam Vital Signs: Vital Signs: Vital Signs Temp Pulse Resp BP Pulse Ox 05/28/20 12:00 100.2 F 89 18 129/67 95 05/28/20 08:00 99.5 F 84 19 133/74 95 05/28/20 00:45 97.6 F 18 05/27/20 23:08 101.7 F H 97 20 104/66 96 05/27/20 19:09 99.6 F 90 20 104/66 97 05/27/20 15:25 101.1 F H 85 17 108/56 L 98 Body Mass Index 36.0 Const: General: cooperative, healthy appearing, comfortable and no acute distress Orientation/consciousness: patient oriented x3 Eyes: EOM: EOMs intact bilaterally Neck: Neck: Yes normal visual inspection, Yes full ROM and Yes no lymphadenopathy Resp: Effort & Inspection: normal respiratory effort, able to speak in complete sentences and no audible wheezes GI: Other: there is some induration of the overlying skin in left lower quadrant at the previous surgical site. There is evidence of recurrence of seroma at this site. There is slight blanching erythema surrounding the incision. No evidence of purulence. There is mild tenderness to palpation at the recurrent seroma site. Inspection: Yes Abdominal wall edema ( Evidence of recurrence of seroma in the left lower quadrant. ) Neuro: General: patient oriented x3, gait normal, moves all extremities and CN's II-XI intact bilaterally Extrem: General: Yes normal to inspection, Yes full ROM, Yes no clubbing, cyanosis or edema and Yes no calf tenderness Progress Note: A&P Assessment and plan (1) Seroma: Status: Acute Assessment and Plan: this is a 49-year-old gentleman who was readmitted with seroma at the left lower quadrant previous hernia repair site. He is status post needle aspiration of seroma which was a clear serous fluid. Patient has evidence of recurrence of seroma although there is no evidence of infection currently. He has some mild erythema surrounding the incision site and edema of the overlying skin. Patient reports he felt better on Kefzol. I have discontinued IV Zosyn and restarted IV Kefzol. I will reorder a CBC for tomorrow to evaluate white blood cell count. Patient was encouraged to ambulate. Will continue to monitor erythema of the abdominal wall. Fall Risk Details Current Medications: Current Medications Generic Name Dose Route Start Last Admin Trade Name Freq PRN Reason Stop Dose Admin Acetaminophen 650 mg 05/25/20 13:10 05/27/20 16:14 Acetaminophen 325 Mg Tablet PO 650 mg Q4H PRN Administration pain Albuterol Sulfate 2 puff 05/25/20 13:14 Albuterol Sulfate 90 Mcg 18 Gm Inhaler INHALE Q4H PRN ASTHMA Docusate Sodium 100 mg 05/25/20 21:00 05/28/20 08:26 Docusate Sodium 100 Mg Capsule PO 100 mg BID LINDSAY Administration Escitalopram Oxalate 10 mg 05/26/20 09:00 05/28/20 08:26 Escitalopram Oxalate 10 Mg Tablet PO 10 mg DAILY LINDSAY Administration Fluticasone/Vilanterol 1 puff 05/26/20 08:00 05/28/20 08:39 Fluticasone/Vilanterol 200/25 Blst.W.Dev INHALE 1 puff RDAILY LINDSAY Administration Hydrochlorothiazide 25 mg 05/26/20 09:00 05/28/20 08:25 Hydrochlorothiazide 25 Mg Tablet PO 25 mg DAILY LINDSAY Administration Protocol Piperacillin Sod/Tazobactam 50 mls @ 100 mls/hr 05/27/20 09:00 05/28/20 09:19 Sod 3.375 gm/ Sodium Chloride IV Infused Q6H LINDSAY Infusion Ipratropium [place] 2 spray 05/25/20 13:14 Ipratropium [place] Maco 0.03 % 30 Ml [place] NOSTRIL-B TID PRN congestion Levothyroxine Sodium 50 mcg 05/26/20 09:00 05/28/20 08:26 Levothyroxine Sodium 50 Mcg Tablet PO 50 mcg DAILY LINDSAY Administration Loratadine 10 mg 05/26/20 09:00 05/28/20 08:26 Loratadine 10 Mg Tablet PO 10 mg DAILY LINDSAY Administration Montelukast Sodium 10 mg 05/25/20 21:00 05/27/20 22:21 Montelukast Sodium 10 Mg Tablet PO 10 mg BEDTIME LINDSAY Administration Morphine Sulfate 2 mg 05/25/20 17:29 05/25/20 22:42 Morphine Sulfate 2 Mg/Ml Cartridge IVPUSH 2 mg Q4H PRN Administration Pain, Severe (Pain Scale 7-10) Omeprazole 20 mg 05/26/20 09:00 05/28/20 08:26 Omeprazole 20 Mg Capsule.Dr PO 20 mg DAILY LINDSAY Administration Oxycodone HCl 10 mg 05/25/20 13:16 05/28/20 08:26 Oxycodone Hcl Immed Release 5 Mg Tablet PO 10 mg Q4H PRN Administration pain Pharmacy Consult 1 each 05/25/20 10:53 Consult Rx Perform Med Rec MISCELLANE ONCE PRN Consult order Tamsulosin HCl 0.4 mg 05/25/20 21:00 05/27/20 22:22 Tamsulosin Hcl 0.4 Mg Capsule PO 0.4 mg BEDTIME LINDSAY Administration Time Spent With Patient Time: Total time spent is greater than 50% in coordination of care (as documented) at patient's floor/unit and/or counseling patient: 20 minutes Time with patient: 15 - 24 minutes No Severe Sepsis: No Severe Sepsis
[2020-05-28] MEDS: Acetaminophen 325 MG TABLET 650 MG PO (13:45)
--- NOTE | 2020-05-28 19:01 | PC.NURSE ---
Pt LLQ seroma site began to drain out a large amount of pus and this RN notified Dr. Beth who was graphic production artist. Dressing applied to pt abd per MD orders and a wound culture was also obtained per MD order. Pt is comfortable, no change in VS or increasing pain. Wound culture sent to the lab. Pt had 2 ABD applied to LLQ. c/d/i.
[2020-05-28] MEDS: Montelukast Sodium 10 MG TABLET PO (21:06)
[2020-05-28] MEDS: Tamsulosin HCL 0.4 MG CAPSULE PO (21:06)
[2020-05-29] MEDS: oxyCODONE HCl Immed Release 5 MG TABLET 10 MG PO ×5 (00:33→21:06)
[2020-05-29 05:11] LABS: Hematocrit 36.9 % (42-52); Mean Corpuscular HGB Conc 32.5 g/dl (31.0-36.0); Mean Corpuscular Hemoglobin 29.5 pg (27.0-33.0); Mean Corpuscular Volume 90.7 fL (80-98); Mean Platelet Volume 8.6 fL (9.4-12.4); Platelet Count 388 X10*3/uL (160-400); Red Blood Count 4.07 X10*6/uL (4.60-5.80); Red Cell Distribution Width 12.6 % (11.0-16.0); White Blood Count 14.5 X10*3/uL (4.8-10.8)
[2020-05-29 07:53] VITALS: BP 117/71; PULSE 76; RESP 19; TEMP 36.9; O2SAT 97
[2020-05-29] MEDS: Fluticasone/Vilanterol 200/25 BLST.W.DEV 1 PUFF INHALE (08:17)
[2020-05-29] MEDS: Levothyroxine Sodium 50 MCG TABLET PO (09:15)
[2020-05-29] MEDS: Docusate Sodium 100 MG CAPSULE PO ×2 (09:15→21:05)
[2020-05-29] MEDS: Omeprazole 20 MG CAPSULE.DR PO (09:15)
[2020-05-29] MEDS: hydroCHLOROthiazide 25 MG TABLET PO (09:15)
[2020-05-29] MEDS: Escitalopram Oxalate 10 MG TABLET PO (09:15)
[2020-05-29] MEDS: Loratadine 10 MG TABLET PO (09:15)
[2020-05-29] MEDS: Acetaminophen 325 MG TABLET 650 MG PO (11:41)
[2020-05-29 12:00] VITALS: BP 144/83; PULSE 85; RESP 19; TEMP 37; O2SAT 96
[2020-05-29] MEDS: Morphine Sulfate 2 MG/ML CARTRIDGE IVPUSH ×2 (12:03→22:33)
--- NOTE | 2020-05-29 12:19 | P.PNGS_ITS ---
Subjective Subjective Interval history: patient reports having drainage of purulence from the surgical incision in left lower quadrant after taking shower last evening. He reports feeling much better after drainage. He has not had any additional elevated temperatures. All other vital signs are within normal limits. Patient has been up and ambulating. I did ask the nurse to culture the fluid that was expressed. Cultures are pending. Physical Exam Vital Signs: Vital Signs: Vital Signs Temp Pulse Resp BP Pulse Ox 05/29/20 07:53 98.4 F 76 19 117/71 97 05/28/20 23:11 98.4 F 108 H 18 145/88 H 94 05/28/20 19:01 98.1 F 90 16 122/80 96 05/28/20 16:00 98.4 F 88 18 111/69 93 05/28/20 15:23 98.4 F 88 18 111/69 93 Body Mass Index 36.0 Const: General: cooperative, healthy appearing, comfortable and no acute distress HENMT: Head: Yes normal to inspection, Yes normocephalic and Yes atraumatic Eyes: General: appearance normal, both eyes and all related structures EOM: EOMs intact bilaterally Neck: Neck: Yes normal visual inspection, Yes full ROM and Yes no lymphadenopathy GI: Other: Abdomen is obese soft nondistended. There is mild tenderness to palpation at the incision site left lower quadrant. There is erythema that is improved from yesterday's exam. There is no open wound at the incision site. On upon palpation there is a slight amount of serous drainage with suspected fat necrosis status expressed from a pinpoint hole which is likely from the previous aspiration site. There is no evidence of purulence. There is mild tenderness to palpation. Skin: General skin exam: no rashes or lesions noted Extrem: General: Yes normal to inspection, Yes full ROM, Yes no clubbing, cyanosis or edema, Yes no pedal edema and Yes no calf tenderness Progress Note: A&P Assessment and plan (1) Superficial postoperative wound infection: Status: Acute Assessment and Plan: possible superficial wound infection status post ventral hernia repair. Patient has improvement in his white blood cell count and pain level status post spontaneous drainage. We will await culture results. Patient will continue on IV for now. If there is no significant improvement in erythema and patient's pain and if they are positive cultures the patient may require removal of mesh. Continue current management now until we find out the results of the microbiology. Fall Risk Details Current Medications: Current Medications Generic Name Dose Route Start Last Admin Trade Name Freq PRN Reason Stop Dose Admin Acetaminophen 650 mg 05/25/20 13:10 05/29/20 11:41 Acetaminophen 325 Mg Tablet PO 650 mg Q4H PRN Administration pain Albuterol Sulfate 2 puff 05/25/20 13:14 Albuterol Sulfate 90 Mcg 18 Gm Inhaler INHALE Q4H PRN ASTHMA Docusate Sodium 100 mg 05/25/20 21:00 05/29/20 09:15 Docusate Sodium 100 Mg Capsule PO 100 mg BID LINDSAY Administration Escitalopram Oxalate 10 mg 05/26/20 09:00 05/29/20 09:15 Escitalopram Oxalate 10 Mg Tablet PO 10 mg DAILY LINDSAY Administration Fluticasone/Vilanterol 1 puff 05/26/20 08:00 05/29/20 08:17 Fluticasone/Vilanterol 200/25 Blst.W.Dev INHALE 1 puff RDAILY LINDSAY Administration Hydrochlorothiazide 25 mg 05/26/20 09:00 05/29/20 09:15 Hydrochlorothiazide 25 Mg Tablet PO 25 mg DAILY LINDSAY Administration Protocol Cefazolin Sodium 500 mg/ 50 mls @ 100 mls/hr 05/28/20 14:00 05/29/20 06:20 Sodium Chloride IV Infused Q8H LINDSAY Infusion Ipratropium [place] 2 spray 05/25/20 13:14 Ipratropium [place] Maco 0.03 % 30 Ml [place] NOSTRIL-B TID PRN congestion Levothyroxine Sodium 50 mcg 05/26/20 09:00 05/29/20 09:15 Levothyroxine Sodium 50 Mcg Tablet PO 50 mcg DAILY LINDSAY Administration Loratadine 10 mg 05/26/20 09:00 05/29/20 09:15 Loratadine 10 Mg Tablet PO 10 mg DAILY LINDSAY Administration Montelukast Sodium 10 mg 05/25/20 21:00 05/28/20 21:06 Montelukast Sodium 10 Mg Tablet PO 10 mg BEDTIME LINDSAY Administration Morphine Sulfate 2 mg 05/25/20 17:29 05/29/20 12:03 Morphine Sulfate 2 Mg/Ml Cartridge IVPUSH 2 mg Q4H PRN Administration Pain, Severe (Pain Scale 7-10) Omeprazole 20 mg 05/26/20 09:00 05/29/20 09:15 Omeprazole 20 Mg Capsule.Dr PO 20 mg DAILY LINDSAY Administration Oxycodone HCl 10 mg 05/25/20 13:16 05/29/20 10:17 Oxycodone Hcl Immed Release 5 Mg Tablet PO 10 mg Q4H PRN Administration pain Pharmacy Consult 1 each 05/25/20 10:53 Consult Rx Perform Med Rec MISCELLANE ONCE PRN Consult order Tamsulosin HCl 0.4 mg 05/25/20 21:00 05/28/20 21:06 Tamsulosin Hcl 0.4 Mg Capsule PO 0.4 mg BEDTIME LINDSAY Administration Time Spent With Patient Time: Total time spent is greater than 50% in coordination of care (as documented) at patient's floor/unit and/or counseling patient: Time with patient: less than 15 minutes
[2020-05-29 15:05] VITALS: BP 110/70; PULSE 86; RESP 18; TEMP 36.4; O2SAT 99
[2020-05-29 19:06] VITALS: BP 117/64; PULSE 76; RESP 16; TEMP 37.3; O2SAT 97
[2020-05-29] MEDS: Tamsulosin HCL 0.4 MG CAPSULE PO (21:05)
[2020-05-29] MEDS: Montelukast Sodium 10 MG TABLET PO (21:06)
[2020-05-29 22:33] VITALS: RESP 16
[2020-05-29 23:28] VITALS: BP 111/68; PULSE 90; RESP 18; TEMP 37.2; O2SAT 94
[2020-05-30] VITALS (7 sets, daily range): BP systolic 107–123; BP diastolic 62–76; PULSE 78–88; RESP 17–19; TEMP 35.9–37.6; O2SAT 95–96; BMI 36.0
[2020-05-30] MEDS: oxyCODONE HCl Immed Release 5 MG TABLET 10 MG PO ×2 (02:47→09:19)
[2020-05-30 07:14] LABS: Hemoglobin 11.9 g/dl (14.0-18.0); Mean Corpuscular HGB Conc 32.2 g/dl (31.0-36.0); Mean Corpuscular Hemoglobin 29.2 pg (27.0-33.0); Mean Corpuscular Volume 90.9 fL (80-98); Mean Platelet Volume 8.6 fL (9.4-12.4); Platelet Count 397 X10*3/uL (160-400); Red Blood Count 4.07 X10*6/uL (4.60-5.80); Red Cell Distribution Width 12.8 % (11.0-16.0); White Blood Count 12.3 X10*3/uL (4.8-10.8)
[2020-05-30] MEDS: Fluticasone/Vilanterol 200/25 BLST.W.DEV 1 PUFF INHALE (07:29)
--- NOTE | 2020-05-30 08:44 | MHC.CM.PN ---
ur nurse director of casework note [employer] medical record reviewed and case discussed with staff nurse , met with patient , he reported to me and confirmed by chart documentation on 05/28/20 he had purulent drainage from his incision site after taking a shower, cultures were taken from site on 05/29/20 patient. plan is to continue his iv antibiotics and conversion from iv analgeics to oral, mopnir all labs and checking for culture reports discharge plan home with antivcipated services transportation family pcp patient to follow up with his pcp for post hospitla discharge surgical follow up as indicated on the discharge instructions
[2020-05-30] MEDS: hydroCHLOROthiazide 25 MG TABLET PO (09:18)
[2020-05-30] MEDS: Docusate Sodium 100 MG CAPSULE PO ×2 (09:18→20:15)
[2020-05-30] MEDS: Omeprazole 20 MG CAPSULE.DR PO (09:18)
[2020-05-30] MEDS: Escitalopram Oxalate 10 MG TABLET PO (09:18)
[2020-05-30] MEDS: Levothyroxine Sodium 50 MCG TABLET PO (09:19)
[2020-05-30] MEDS: Loratadine 10 MG TABLET PO (09:19)
--- NOTE | 2020-05-30 10:14 | PM.PNGS ---
Subjective Subjective Interval history: has pain on repair site but says this is not bad less redness he says had drainage from site over the weekend Physical Exam Vital Signs: Vital Signs: Vital Signs Temp Pulse Resp BP Pulse Ox 05/30/20 08:00 98.3 F 78 17 107/65 95 05/30/20 05:45 97.8 F 05/30/20 04:00 96.6 F L 80 18 123/76 96 05/29/20 23:28 99 F 90 18 111/68 94 05/29/20 22:33 16 05/29/20 19:06 99.1 F 76 16 117/64 97 05/29/20 15:05 97.5 F 86 18 110/70 99 05/29/20 12:00 98.6 F 85 19 144/83 H 96 Body Mass Index 36.0 Hematology 05/29/20 05/30/20 04:49 06:14 WBC 14.5 H 12.3 H Hgb 12.0 L 11.9 L Plt Count 388 397 Const: General: comfortable and no acute distress Cardio: Rhythm: regular rhythm GI: Other: abd soft, some redness on skin around site, but less according to patient, no fluctuance; serosanguinous discharge seen on dressing Progress Note: A&P Assessment and plan (1) Seroma: Status: Acute Assessment and Plan: redness better WBC continues to trend down no fever continue IV abx - he has mesh initial culture of aspirated seroma showed no growth clinically looks well Fall Risk Details Current Medications: Current Medications Generic Name Dose Route Start Last Admin Trade Name Freq PRN Reason Stop Dose Admin Acetaminophen 650 mg 05/25/20 13:10 05/29/20 11:41 Acetaminophen 325 Mg Tablet PO 650 mg Q4H PRN Administration pain Albuterol Sulfate 2 puff 05/25/20 13:14 Albuterol Sulfate 90 Mcg 18 Gm Inhaler INHALE Q4H PRN ASTHMA Docusate Sodium 100 mg 05/25/20 21:00 05/30/20 09:18 Docusate Sodium 100 Mg Capsule PO 100 mg BID LINDSAY Administration Escitalopram Oxalate 10 mg 05/26/20 09:00 05/30/20 09:18 Escitalopram Oxalate 10 Mg Tablet PO 10 mg DAILY LINDSAY Administration Fluticasone/Vilanterol 1 puff 05/26/20 08:00 05/30/20 07:29 Fluticasone/Vilanterol 200/25 Blst.W.Dev INHALE 1 puff RDAILY LINDSAY Administration Hydrochlorothiazide 25 mg 05/26/20 09:00 05/30/20 09:18 Hydrochlorothiazide 25 Mg Tablet PO 25 mg DAILY LINDSAY Administration Protocol Cefazolin Sodium 500 mg/ 50 mls @ 100 mls/hr 05/28/20 14:00 05/30/20 08:32 Sodium Chloride IV Infused Q8H LINDSAY Infusion Ipratropium [place] 2 spray 05/25/20 13:14 Ipratropium [place] Maco 0.03 % 30 Ml [place] NOSTRIL-B TID PRN congestion Levothyroxine Sodium 50 mcg 05/26/20 09:00 05/30/20 09:19 Levothyroxine Sodium 50 Mcg Tablet PO 50 mcg DAILY LINDSAY Administration Loratadine 10 mg 05/26/20 09:00 05/30/20 09:19 Loratadine 10 Mg Tablet PO 10 mg DAILY LINDASY Administration Montelukast Sodium 10 mg 05/25/20 21:00 05/29/20 21:06 Montelukast Sodium 10 Mg Tablet PO 10 mg BEDTIME LINDSAY Administration Morphine Sulfate 2 mg 05/25/20 17:29 05/29/20 22:33 Morphine Sulfate 2 Mg/Ml Cartridge IVPUSH 2 mg Q4H PRN Administration Pain, Severe (Pain Scale 7-10) Omeprazole 20 mg 05/26/20 09:00 05/30/20 09:18 Omeprazole 20 Mg Capsule.Dr PO 20 mg DAILY LINDSAY Administration Oxycodone HCl 10 mg 05/25/20 13:16 05/30/20 09:19 Oxycodone Hcl Immed Release 5 Mg Tablet PO 10 mg Q4H PRN Administration pain Pharmacy Consult 1 each 05/25/20 10:53 Consult Rx Perform Med Rec MISCELLANE ONCE PRN Consult order Tamsulosin HCl 0.4 mg 05/25/20 21:00 05/29/20 21:05 Tamsulosin Hcl 0.4 Mg Capsule PO 0.4 mg BEDTIME LINDSAY Administration Time Spent With Patient Time: Total time spent is greater than 50% in coordination of care (as documented) at patient's floor/unit and/or counseling patient: Time with patient: 15 - 24 minutes
[2020-05-30] MEDS: Acetaminophen 325 MG TABLET 650 MG PO (15:36)
[2020-05-30] MEDS: Morphine Sulfate 2 MG/ML CARTRIDGE IVPUSH (17:10)
[2020-05-30] MEDS: Piperacillin Sodium/Tazobactam 3.375 GM in 0.9 % Sodium Chloride 50 ML IV (20:14)
[2020-05-30] MEDS: Montelukast Sodium 10 MG TABLET PO (20:15)
[2020-05-30] MEDS: Tamsulosin HCL 0.4 MG CAPSULE PO (20:15)
[2020-05-30] MEDS: oxyCODONE HCl Immed Release 5 MG TABLET PO (20:20)
[2020-05-31] VITALS: BP 122/58; PULSE 76; RESP 18; TEMP 37.2; O2SAT 93
[2020-05-31] MEDS: Piperacillin Sodium/Tazobactam 3.375 GM in 0.9 % Sodium Chloride 50 ML IV ×2 (02:32→09:31)
[2020-05-31] MEDS: Morphine Sulfate 2 MG/ML CARTRIDGE IVPUSH (02:56)
[2020-05-31 04:00] VITALS: BP 120/62; PULSE 74; RESP 18; TEMP 37.1; O2SAT 95
[2020-05-31 06:24] LABS: MANUAL DIFF FLAG NO
[2020-05-31 06:46] LABS: Basophils Absolute Auto 0.1 X10*3/uL (0.0-0.2); Basophils Percent Auto 0.5 % (0-2); Eosinophils Absolute Auto 0.5 X10*3/uL (0.0-0.4); Eosinophils Percent Auto 4.6 % (0-4); Hematocrit 37.9 % (42-52); Hemoglobin 12.4 g/dl (14.0-18.0); Imm Gran Abs Auto 0.51 X10*3/uL (0.00-0.03); Imm Gran Pct Auto 4.4 % (0.0-0.4); Lymphocytes Absolute Auto 1.9 X10*3/uL (1.2-4.9); Mean Corpuscular HGB Conc 32.7 g/dl (31.0-36.0); Mean Corpuscular Hemoglobin 29.7 pg (27.0-33.0); Mean Corpuscular Volume 90.9 fL (80-98); Mean Platelet Volume 8.7 fL (9.4-12.4); Monocytes Absolute Auto 1.3 X10*3/uL (0.1-1.2); Monocytes Percent Auto 11.3 % (2-11); Neutrophils Absolute Auto 7.3 X10*3/uL (2.0-8.3); Neutrophils Percent Auto 63.2 % (45-73); Platelet Count 418 X10*3/uL (160-400); Red Blood Count 4.17 X10*6/uL (4.60-5.80); Red Cell Distribution Width 12.6 % (11.0-16.0); White Blood Count 11.6 X10*3/uL (4.8-10.8)
[2020-05-31] MEDS: oxyCODONE HCl Immed Release 5 MG TABLET PO ×2 (07:45→13:39)
[2020-05-31 07:48] VITALS: BP 114/64; PULSE 74; RESP 16; TEMP 36.4; O2SAT 97
[2020-05-31] MEDS: Fluticasone/Vilanterol 200/25 BLST.W.DEV 1 PUFF INHALE (07:48)
[2020-05-31] MEDS: Loratadine 10 MG TABLET PO (09:32)
[2020-05-31] MEDS: Levothyroxine Sodium 50 MCG TABLET PO (09:32)
[2020-05-31] MEDS: Docusate Sodium 100 MG CAPSULE PO (09:32)
[2020-05-31] MEDS: hydroCHLOROthiazide 25 MG TABLET PO (09:32)
[2020-05-31] MEDS: Escitalopram Oxalate 10 MG TABLET PO (09:33)
[2020-05-31] MEDS: Omeprazole 20 MG CAPSULE.DR PO (09:33)
--- NOTE | 2020-05-31 10:54 | P.PNGS_ITS ---
Subjective Subjective Interval history: states he continues to feel better slept well no GI complaints redness on skin much improved Physical Exam Vital Signs: Vital Signs: Vital Signs Temp Pulse Resp BP Pulse Ox 05/31/20 07:48 97.5 F 74 16 114/64 97 05/31/20 04:00 98.7 F 74 18 120/62 95 05/31/20 00:00 99.0 F 76 18 122/58 L 93 05/30/20 19:35 98.7 F 80 17 117/62 95 05/30/20 17:10 19 05/30/20 15:15 99.7 F 88 17 109/73 95 05/30/20 12:00 86 18 121/67 95 Body Mass Index 36.0 Hematology 05/29/20 05/30/20 05/31/20 04:49 06:14 06:05 WBC 14.5 H 12.3 H 11.6 H Hgb 12.0 L 11.9 L 12.4 L Plt Count 388 397 418 H 05/31/20 06:05 WBC Cancelled Hgb Cancelled Plt Count Cancelled Const: General: comfortable and no acute distress Cardio: Rhythm: regular rhythm GI: Other: soft, nontender, redness on repair site much improved, dry Progress Note: A&P Assessment and plan (1) Seroma: Status: Acute Assessment and Plan: He had a large wound seroma -drained well No infection WBC now 11 he feels ready to go home will dc on Augmentin in view of mesh ffup in office next week Fall Risk Details Current Medications: Current Medications Generic Name Dose Route Start Last Admin Trade Name Chinq PRN Reason Stop Dose Admin Acetaminophen 650 mg 05/25/20 13:10 05/30/20 15:36 Acetaminophen 325 Mg Tablet PO 650 mg Q4H PRN Administration pain Albuterol Sulfate 2 puff 05/25/20 13:14 Albuterol Sulfate 90 Mcg 18 Gm Inhaler INHALE Q4H PRN ASTHMA Docusate Sodium 100 mg 05/25/20 21:00 05/31/20 09:32 Docusate Sodium 100 Mg Capsule PO 100 mg BID LINDSAY Administration Escitalopram Oxalate 10 mg 05/26/20 09:00 05/31/20 09:33 Escitalopram Oxalate 10 Mg Tablet PO 10 mg DAILY LINDSAY Administration Fluticasone/Vilanterol 1 puff 05/26/20 08:00 05/31/20 07:48 Fluticasone/Vilanterol 200/25 Blst.W.Dev INHALE 1 puff RDAILY LINDSAY Administration Hydrochlorothiazide 25 mg 05/26/20 09:00 05/31/20 09:32 Hydrochlorothiazide 25 Mg Tablet PO 25 mg DAILY LINDSAY Administration Protocol Piperacillin Sod/Tazobactam 50 mls @ 100 mls/hr 05/31/20 09:00 05/31/20 10:14 Sod 3.375 gm/ Sodium Chloride IV Infused Q6H LINDSAY Infusion Ipratropium [place] 2 spray 05/25/20 13:14 Ipratropium [place] Maco 0.03 % 30 Ml [place] NOSTRIL-B TID PRN congestion Levothyroxine Sodium 50 mcg 05/26/20 09:00 05/31/20 09:32 Levothyroxine Sodium 50 Mcg Tablet PO 50 mcg DAILY LINDSAY Administration Loratadine 10 mg 05/26/20 09:00 05/31/20 09:32 Loratadine 10 Mg Tablet PO 10 mg DAILY LINDSAY Administration Montelukast Sodium 10 mg 05/25/20 21:00 05/30/20 20:15 Montelukast Sodium 10 Mg Tablet PO 10 mg BEDTIME LINDSAY Administration Morphine Sulfate 2 mg 05/30/20 18:02 05/31/20 02:56 Morphine Sulfate 2 Mg/Ml Cartridge IVPUSH 2 mg Q4H PRN Administration Pain, Severe (Pain Scale 7-10) Omeprazole 20 mg 05/26/20 09:00 05/31/20 09:33 Omeprazole 20 Mg Capsule.Dr PO 20 mg DAILY LINDSAY Administration Oxycodone HCl 5 mg 05/30/20 18:49 05/31/20 07:45 Oxycodone Hcl Immed Release 5 Mg Tablet PO 5 mg Q4H PRN Administration Pain, Moderate (Pain Scale 4-6 Pharmacy Consult 1 each 05/25/20 10:53 Consult Rx Perform Med Rec MISCELLANE ONCE PRN Consult order Tamsulosin HCl 0.4 mg 05/25/20 21:00 05/30/20 20:15 Tamsulosin Hcl 0.4 Mg Capsule PO 0.4 mg BEDTIME LINDSAY Administration Time Spent With Patient Time: Total time spent is greater than 50% in coordination of care (as documented) at patient's floor/unit and/or counseling patient: Time with patient: 15 - 24 minutes
[2020-05-31 11:41] VITALS: BP 115/68; PULSE 76; RESP 16; TEMP 36.6; O2SAT 96
--- NOTE | 2020-05-31 12:14 | MHC.CM.PN ---
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
--- NOTE | 2020-05-31 13:38 | PM.DS ---
DS: Providers Provider Date of admission: 05/27/20 14:30 Primary care physician: [facility] DS: Diagnosis Discharge Diagnosis (1) Seroma: Status: Acute (2) Superficial postoperative wound infection: Status: Acute (3) H/O hernia repair: Status: Acute DS: Summary Hospital Course Hospital Course: Brief HPI: 49 year old male who came into the emergency room today because of pain on his incision. He underwent repair of recurrent incisional hernia with mesh last 05/10/2020 as an inpatient. This hernia was from his old colostomy site. He had Hattie's procedure for perforated diverticulitis in 2016. He had this reversed. He had developed 2 hernias on this previous colostomy site. He also says that he had some sweats at home and his temperature was 100.9 degrees this morning. He has good oral intake and denies any nausea or vomiting. He has good bowel movements. He was concerned about this incisional pain along with the low-grade temperature so he came to the emergency room. He had a CAT scan done which showed a fluid collection in the subcutaneous layer above the fascia. This was aspirated in the ER with a needle and this had shown a seroma. He however says that he wanted to stay in the hospital because of his incisional pain. The patient was admitted to the surgical service under Dr. Benson Nowak for treatment of the post operative pain. He had no significant erythema or drainage at that time but was started on IV kefzol given the patient's leukocytosis. He felt improved the following day but his leukocytosis worsened and therefore discharge was held. His WBC remained elevated and his IV antibiotics were changed to IV zosyn for broader coverage. His incisional erythema did not worsen. The initial aspirated incisional fluid culture had no growth. His WBC began to slowly downtrend. IV antibiotics were continued for 5 days given the presence of mesh. His pain and incisional induration improved. He was discharged to home on 05/31/20 on a PO course of Augmentin. He is to follow up with Dr. Nowak in the office in 1 week for a wound check. Status at Discharge Functional status at discharge: independent ambulation Overall status at discharge: patient is progressing back to baseline Time Spent with Patient Time attestation: Total time spent providing and/or coordinating discharge services: Time spent: Less than 30 minutes Specific discharge activities: No heavy lifting Physical Exam Vital Signs: Vital Signs: Vital Signs Temp Pulse Resp BP Pulse Ox 05/31/20 11:41 97.8 F 76 16 115/68 96 05/31/20 07:48 97.5 F 74 16 114/64 97 05/31/20 04:00 98.7 F 74 18 120/62 95 05/31/20 00:00 99.0 F 76 18 122/58 L 93 05/30/20 19:35 98.7 F 80 17 117/62 95 05/30/20 17:10 19 05/30/20 15:15 99.7 F 88 17 109/73 95 Body Mass Index 36.0 Const: General: comfortable, no acute distress and alert Orientation/consciousness: patient oriented x3 Resp: Effort & Inspection: normal respiratory effort Cardio: Rate: regular rate GI: Inspection: Yes incision (very pale erythema at incision site, induration decreased) Palpation (GI): Soft to palpation and Tenderness to palpation present (GI) (mild, incision) Skin: Rashes: no rashes Neuro: General: patient oriented x3 Extrem: General: Yes no clubbing, cyanosis or edema DS: Data Data Completed and Pending Completed studies during hospitalization [Text1]: Procedures Labs on day of discharge: Labs from last 24 hours 05/31/20 05/31/20 06:05 06:05 WBC Cancelled 11.6 H RBC Cancelled 4.17 L Hgb Cancelled 12.4 L Hct Cancelled 37.9 L MCV Cancelled 90.9 MCH Cancelled 29.7 MCHC Cancelled 32.7 RDW Cancelled 12.6 Plt Count Cancelled 418 H MPV Cancelled 8.7 L Immature Gran % (Auto) 4.4 H Neut % (Auto) 63.2 Lymph % (Auto) 16.0 L [place] % (Auto) 11.3 H Eos % (Auto) 4.6 H Baso % (Auto) 0.5 Lymph # (Auto) 1.9 [place] # (Auto) 1.3 H Eos # (Auto) 0.5 H Baso # (Auto) 0.1 Abs Immat Gran (auto) 0.51 H Absolute Neuts (auto) 7.3 Absolute Nucleated RBC Cancelled 0.000 Nucleated RBC % (auto) Cancelled 0.0 Discharge Plan Discharge Patient Disposition: Home, Self-Care Referrals: [facility] [Primary Care Provider] - Benson Nowak MD [Physician] - 1 Week Discharge Medications: New amoxicillin-pot clavulanate [Augmentin] 500-125 mg tablet 1 tab PO Q12H Qty: 10 RF: 0 Continued levothyroxine 50 mcg Tablet 50 mcg PO DAILY RF: 0 docusate sodium [Colace] 100 mg Capsule 100 mg PO BID RF: 0 omeprazole 20 mg Capsule,Delayed Release(Dr/Ec) 20 mg PO DAILY RF: 0 montelukast [Singulair] 10 mg Tablet 10 mg PO BEDTIME RF: 0 loratadine 10 mg Tablet 10 mg PO DAILY RF: 0 escitalopram oxalate [Lexapro] 10 mg Tablet 10 mg PO DAILY RF: 0 albuterol sulfate 90 mcg/actuation Hfa Aerosol Inhaler 2 puff INHALATION Q4H PRN (Reason: ASTHMA) RF: 0 tamsulosin 0.4 mg capsule 0.4 mg PO BEDTIME RF: 0 fluticasone propion-salmeterol [Wixela Inhub] 500-50 mcg/dose blister with device 1 puff inhalation BID RF: 0 hydrochlorothiazide 25 mg tablet 25 mg PO DAILY RF: 0 ipratropium bromide 0.03 % spray,non-aerosol 2 spray intranasal TID PRN (Reason: congestion) RF: 0 Discharge Orders: Discharge Order (Routine); Ordered 05/31/20 Ordered By: Ale Nielson Activity on Discharge: No heavy lifting Visit Report Forms: Patient Portal Discharge page Care Plan Goals: Return to baseline health. Health Concerns: Post op seroma following incisional hernia repair, cellulitis Plan of Treatment: Antibiotics, discharge to home
[2020-05-31] MEDS: Acetaminophen 325 MG TABLET 650 MG PO (13:39)
== END 2020-05-31 16:38 | disposition home or self-care (01) | DRG 921 ==
LOC: HO.ED 12:57 → HO.S3 14:04
PROVIDERS: Physician Assistant Surgical; Surgery; Admitting Provider Surgery; Emergency Provider Emergency Medicine; Visit Provider Surgery
DX: L76.34 Postprocedural seroma of skin and subcutaneous tissue following other procedure (principal); B95.61 Methicillin susceptible Staphylococcus aureus infection as the cause of diseases classified elsewhere; F41.9 Anxiety disorder, unspecified; G89.18 Other acute postprocedural pain; J45.909 Unspecified asthma, uncomplicated; Z87.891 Personal history of nicotine dependence; Z79.51 Long term (current) use of inhaled steroids; Z79.899 Other long term (current) drug therapy
CPT/HCPCS: 36415; 71045; 74177; 80048; 80076; 81003; 81015; 83605; 83690; 83735; 85025; 85027; 85610; 85730; 87040; 87071; 87077; 87147; 87186; 87205; 94640; 96361; 96374; 96375; 99224; 99285; J0690; J2270; J2405

== ENCOUNTER → 2020-06-08 12:31 | Outpatient (BNVA) | payer OTHER, SELFPAY | PROVIDERS: PCP Internal Medicine; Visit Provider Surgery | DX: L76.34 Postprocedural seroma of skin and subcutaneous tissue following other procedure (principal); Z87.19 Personal history of other diseases of the digestive system | CPT/HCPCS: 99212 ==

== ENCOUNTER → 2020-06-14 14:51 | Outpatient (BNVA) | payer OTHER, SELFPAY | PROVIDERS: PCP Internal Medicine; Visit Provider Surgery | DX: K91.872 Postprocedural seroma of a digestive system organ or structure following a digestive system procedure (principal); F41.9 Anxiety disorder, unspecified; F12.10 Cannabis abuse, uncomplicated; Z87.891 Personal history of nicotine dependence; Z91.012 Allergy to eggs; Z91.02 Food additives allergy status; Z79.899 Other long term (current) drug therapy | CPT/HCPCS: 99212 ==

== ENCOUNTER 2020-06-17 13:58 | Emergency (ER) | payer OTHER, SELFPAY ==
--- NOTE | 2020-06-17 14:13 | CT_ITS ---
EXAMINATION: CT ABDOMEN AND PELVIS WITHOUT CONTRAST CLINICAL INFORMATION: Incisional pain COMPARISON: Previous CT of the abdomen and pelvis most recent 05/25/2020 TECHNIQUE: Multidetector volumetric imaging was performed from the superior aspect of the liver through the pubic symphysis. Sagittal and coronal reformatted images were obtained on the technologist's workstation. This CT examination was performed using dose optimization techniques as appropriate, variously including the following: *Automated exposure control *Adjustment of mA and/or kV according to patient size (this includes techniques or standardized protocols for targeted exams where dose is matched to indication/reason for exam; i.e. extremities or head) *Use of iterative reconstruction technique DLP: 739 mGy-cm FINDINGS: LUNG BASES: There is a high attenuation left lower lobe nodule that is stable. This is branching or tubular in shape and questionable for plugging. LIVER, GALLBLADDER, AND BILIARY TREE: The liver is normal in size, shape, and attenuation. No focal hepatic lesion or biliary ductal dilatation is present. The gallbladder is unremarkable with no evidence of radiopaque gallstones, gallbladder wall thickening, or obvious pericholecystic inflammatory changes. PANCREAS: Unremarkable. SPLEEN: Unremarkable. ADRENAL GLANDS: Unremarkable. KIDNEYS AND URETERS: The kidneys are normal in size, shape, and attenuation. No hydronephrosis, hydroureter, or calculi seen. No perinephric stranding. BLADDER: Unremarkable. GASTROINTESTINAL TRACT: There is a surgical staple line in the distal colon in the pelvis. There is diverticulosis of the colon. No evidence of diverticulitis is seen. Small and large bowel is otherwise unremarkable. The appendix is unremarkable. The stomach is unremarkable. ABDOMINAL WALL: There is phlegmonous change of the left lateral abdominal wall similar to 05/25/2020 exam with skin thickening, stranding of the fat and small multiloculated fluid collections. Largest fluid collection measures approximately 2 x 4 mm axial image 58 series 3. Again, this involves the subcutaneous fat overlying the anterior abdominal wall, the anterior abdominal wall itself and the peritoneal cavity just deep to this region. This does not appear appreciably changed from 05/25/2020. There is diastasis of the rectus muscles. There is an umbilical hernia containing fat. There is question of diffuse bulge versus broad-based hernia of the infraumbilical abdominal wall. There is a small left inguinal hernia containing fat. LYMPH NODES: Normal. VASCULAR: Unremarkable. PELVIC VISCERA: Unremarkable. OSSEOUS STRUCTURES: There are degenerative changes of the spine. There is anterior subluxation of L5 with respect to L4 and S1. There is an L5 pars defect. CT/CT abdomen pelvis wo con IMPRESSION: Stable appearance to the phlegmonous change in the left abdominal wall, overlying subcutaneous fat and deeper peritoneal cavity from 05/25/2020.
--- NOTE | 2020-06-17 15:25 | PM.CNGS ---
History of Present Illness Consult details Narrative: 49m here in the ED for pain on his recent hernia site. He had undergone recurrent incisional hernia repair with mesh last Apr. I admitted him for a deep seroma last May 27 and he was discharged last May 31. He had been doing well but came to the office last Jun.15 for pain againn on the same area. I had done needle aspiration in the office but there was no seroma drained.I had arrange for a Ct scan but he was unable to have this scheduled, sohe called the office today saying he was concerned about persistent pain. He was instructed to go to the ED to have the Cts can done and that I planned to meet him there. He denies any fever. He says he is chronically constipated. He denies nausea or vomitting. Review of Systems Constitutional: Constitutional: Denies chills and Denies fever(s) Cardiovascular: Cardiovascular: Denies chest pain Respiratory: Respiratory: Denies cough Gastrointestinal: Gastrointestinal: Reports constipation and Denies vomiting Genitourinary: Genitourinary: Denies difficulty urinating PMFSH Past Medical History Medical History Anxiety Asthma Incisional hernia Incisional hernia SBO (small bowel obstruction) Family History Family History Mother No problems noted. Father No problems noted. Maternal Grandfather History of prostate cancer Maternal Grandmother History of breast cancer Surgical History Surgical History H/O hernia repair Status post Hattie's procedure Social History Social History Household Members: Spouse Housing: House Alcohol intake: former Smoking Status: Former smoker Second Hand Smoke Exposure: No Substance Use Type: Marijuana service: No Current occupational status: disabled Meds Allergies Allergy/AdvReac Type Severity Reaction Status Date / Time egg [EGGS] Allergy Unknown ITCHY Verified 06/14/20 15:10 THROAT,SWELLING LIPS JANELL cooking spray Allergy Unknown swelling Uncoded 04/08/20 00:00 in mouth/tongue Home Medications Medication Instructions Recorded Confirmed Type albuterol sulfate 2 puff INHALATION Q4H PRN 05/11/20 06/14/20 History docusate sodium [Colace] 100 mg PO BID 05/11/20 06/14/20 History escitalopram oxalate [Lexapro] 10 mg PO DAILY 05/11/20 06/14/20 History levothyroxine 50 mcg PO DAILY 05/11/20 06/14/20 History loratadine 10 mg PO DAILY 05/11/20 06/14/20 History montelukast [Singulair] 10 mg PO BEDTIME 05/11/20 06/14/20 History omeprazole 20 mg PO DAILY 05/11/20 06/14/20 History fluticasone propion-salmeterol 1 puff INHALATION BID 05/25/20 06/14/20 History [Wixela Inhub] hydrochlorothiazide 25 mg PO DAILY 05/25/20 06/14/20 History ipratropium bromide 2 spray INTRANASAL TID PRN 05/25/20 06/14/20 History tamsulosin 0.4 mg PO BEDTIME 05/25/20 06/14/20 History Physical Exam Const: General: alert and anxious; No acute distress Cardio: Rhythm: regular rhythm GI: Other: abd soft, no guarding or rebound, no redness on hernia repair site, no drainage, some vague induration, some tenderness Results Labs Labs: All other labs normal. Assessment and Plan (1) Seroma: Status: Acute (2) Incisional pain: Status: Acute I had sent for for a Ctscan here in the ED. I have reviewed this with the radiologist. There is no evidence of pus or discrete fluid collection but there is signficant stranding on the subcutaneous layer and the area around the repair site. This appears improved compared to his CT scan last month. I do not see any redness of the skin. However, as he has a mesh, I will start him on PO abx to decrease any chance of infection of the mesh. He was instructed to do warm compresses. He felt better after the discussion. I will see him next week in the office. The above was discussed with the ED staff. The patient says he has a good udnerstanding of the plan.
[2020-06-17 15:39] VITALS: BP 119/73; PULSE 78; RESP 17; TEMP 37.1; O2SAT 96; BMI 35.6
--- NOTE | 2020-06-17 16:04 | ED_ITS ---
HPI - General Adult General Chief complaint: Skin/Abscess/Foreign Body Stated complaint: wound check Time Seen by Provider: 06/17/20 14:13 Source: patient Mode of arrival: ambulatory History of Present Illness HPI narrative: 49-year-old male with a past medical history of recurrent incisional hernia repair with mesh 05/10/2020 S/P admission for deep seroma last month presenting to the ED complaining of continued left lower quadrant abdom inal pain at prior surgical site. Denies drainage from area, fever, chills, nausea/vomiting, diarrhea/constipation Related Data Home Medications Medication Instructions Recorded Confirmed albuterol sulfate 2 puff INHALATION Q4H PRN 05/11/20 06/14/20 docusate sodium [Colace] 100 mg PO BID 05/11/20 06/14/20 escitalopram oxalate [Lexapro] 10 mg PO DAILY 05/11/20 06/14/20 levothyroxine 50 mcg PO DAILY 05/11/20 06/14/20 loratadine 10 mg PO DAILY 05/11/20 06/14/20 montelukast [Singulair] 10 mg PO BEDTIME 05/11/20 06/14/20 omeprazole 20 mg PO DAILY 05/11/20 06/14/20 fluticasone propion-salmeterol 1 puff INHALATION BID 05/25/20 06/14/20 [Wixela Inhub] hydrochlorothiazide 25 mg PO DAILY 05/25/20 06/14/20 ipratropium bromide 2 spray INTRANASAL TID PRN 05/25/20 06/14/20 tamsulosin 0.4 mg PO BEDTIME 05/25/20 06/14/20 Previous Rx's Medication Instructions Recorded amoxicillin-pot clavulanate 1 tab PO Q12H #10 tab 05/27/20 [Augmentin] oxycodone-acetaminophen [Percocet] 1 tab PO Q4-6H PRN #25 tab 05/31/20 oxycodone 5 mg tablet 5 mg PO Q4H PRN #25 tab 06/14/20 amoxicillin-pot clavulanate 1 tab PO Q12H 7 Days #14 tab 06/17/20 [Augmentin] Allergies Allergy/AdvReac Type Severity Reaction Status Date / Time egg [EGGS] Allergy Unknown ITCHY Verified 06/14/20 15:10 THROAT,SWELLING LIPS JANELL cooking spray Allergy Unknown swelling Uncoded 04/08/20 00:00 in mouth/tongue Review of Systems Review of Systems: Constitutional: No Weight loss, No Fever, No Chills Cardiovascular: No Chest Pain, No SOB Respiratory: No Cough Gastrointestinal: No Nausea, No Vomiting, No Diarrhea, No Constipation, + Abdominal pain Genitourinary:, No Dysuria, No Urinary Frequency, No Hematuria, No Flank Pain Musculoskeletal: No joint pain, No Myalgias, No Joint Swelling Skin: No Skin Lesions, No rash Yes all other systems are reviewed and are negative FOR[facility]LY [facility] Past Medical History Attestation statement: The following information was validated with the patient. Medical History (Updated 06/17/20 @ 16:04 by CHRISSY Busby) Anxiety Asthma Incisional hernia Incisional hernia Incisional pain SBO (small bowel obstruction) Surgical History H/O hernia repair Status post Hattie's procedure Family History Family History Mother No problems noted. Father No problems noted. Maternal Grandfather History of prostate cancer Maternal Grandmother History of breast cancer Social History Social History Household Members: Spouse Housing: House Alcohol intake: former Smoking Status: Former smoker Second Hand Smoke Exposure: No Use of substances other than those prescribed or required for medical reasons: No Substance Use Type: Marijuana Advance Directives: No Advance Directives Information Provided: No service: No Current occupational status: disabled Physical Exam Vital Signs: Vital Signs: Last Vital Signs Temp 98.7 F 06/17/20 15:39 Pulse 78 06/17/20 15:39 Resp 17 06/17/20 15:39 BP 119/73 06/17/20 15:39 Pulse Ox 6 L 06/17/20 15:39 Body Mass Index 35.6 Const: General: cooperative and healthy appearing Orientation/consciousness: patient oriented x3 Limitations: no limitations HENMT: Head: Yes normal to inspection Ears: hearing grossly normal bilaterally General nose exam: Normal external nose present Face and sinus: Yes normal facial exam Eyes: General: appearance normal, both eyes and all related structures EOM: EOMs intact bilaterally Neck: Neck: Yes normal visual inspection Resp: Effort & Inspection: normal respiratory effort GI: Other: Hernia repair site noted in LLQ, no drainage or erythema. + indurated, no fluctuance appreciated. Abdomen is soft +ttp LLQ Palpation (GI): Soft to palpation, Tenderness to palpation present (GI) in the LLQ, no guarding and not rigid Neuro: General: patient oriented x3 Gait exam (Neuro): Normal gait present Extrem: General: Yes normal to inspection Course Course Course Narrative: Dr. Nowak is evaluated patient in the ED, reviewed CT scan, recommended starting patient on p.o. Augmentin, and can follow-up in his office next week Discharge Plan Discharge Clinical Impression: Post-operative complication Qualifiers: Surgical complication system/body Area: subcutaneous tissue Surgical complication type: unspecified Patient Disposition: Home, Self-Care Instructions: Abdominal Pain (ED) Additional Instructions: Your CAT scans showed stable appearance of the tissues in your left abdominal wall after surgery, with some stranding Due to the stranding, we will start you on antibiotic, Augmentin, take twice daily for 7 days as prescribed Follow-up in Dr. Nowak office next week as discussed If her pain persists or worsens, you develop fever, drainage from area, nausea/vomiting, or inability to have a bowel movement return to the ED sooner Prescriptions: New amoxicillin-pot clavulanate [Augmentin] 875-125 mg tablet 1 tab PO Q12H 7 Days Qty: 14 RF: 0 No Action levothyroxine 50 mcg Tablet 50 mcg PO DAILY RF: 0 docusate sodium [Colace] 100 mg Capsule 100 mg PO BID RF: 0 omeprazole 20 mg Capsule,Delayed Release(Dr/Ec) 20 mg PO DAILY RF: 0 montelukast [Singulair] 10 mg Tablet 10 mg PO BEDTIME RF: 0 loratadine 10 mg Tablet 10 mg PO DAILY RF: 0 escitalopram oxalate [Lexapro] 10 mg Tablet 10 mg PO DAILY RF: 0 albuterol sulfate 90 mcg/actuation Hfa Aerosol Inhaler 2 puff INHALATION Q4H PRN (Reason: ASTHMA) RF: 0 tamsulosin 0.4 mg capsule 0.4 mg PO BEDTIME RF: 0 fluticasone propion-salmeterol [Wixela Inhub] 500-50 mcg/dose blister with device 1 puff inhalation BID RF: 0 hydrochlorothiazide 25 mg tablet 25 mg PO DAILY RF: 0 ipratropium bromide 0.03 % spray,non-aerosol 2 spray intranasal TID PRN (Reason: congestion) RF: 0 amoxicillin-pot clavulanate [Augmentin] 500-125 mg tablet 1 tab PO Q12H Qty: 10 RF: 0 oxycodone-acetaminophen [Percocet] 5-325 mg tablet 1 tab PO Q4-6H PRN (Reason: pain) Qty: 25 RF: 0 oxycodone 5 mg tablet 5 mg PO Q4H PRN (Reason: pain) Qty: 25 RF: 0 Referrals: Benson Nowak MD [Physician] - 1 week (Next week as discussed)
== END 2020-06-17 16:25 | disposition home or self-care (01) ==
PROVIDERS: Emergency Provider Emergency Medicine
DX: L76.82 Other postprocedural complications of skin and subcutaneous tissue (principal); R10.32 Left lower quadrant pain; Z48.00 Encounter for change or removal of nonsurgical wound dressing; Z79.899 Other long term (current) drug therapy
CPT/HCPCS: 74176; 99283; 99284

== ENCOUNTER → 2020-06-23 16:04 | Outpatient (BNVA) | payer OTHER, SELFPAY | PROVIDERS: Visit Provider Surgery | DX: G89.18 Other acute postprocedural pain (principal); Z87.19 Personal history of other diseases of the digestive system | CPT/HCPCS: 99212 ==

== ENCOUNTER → 2020-06-30 12:52 | Outpatient (BNVA) | payer OTHER, SELFPAY | PROVIDERS: PCP Internal Medicine; Visit Provider Surgery | DX: L76.34 Postprocedural seroma of skin and subcutaneous tissue following other procedure (principal) | CPT/HCPCS: 10160; 99212 ==

== ENCOUNTER → 2020-07-06 12:36 | Outpatient (BNVA) | payer OTHER, SELFPAY | PROVIDERS: PCP Internal Medicine; Visit Provider Surgery | DX: G89.18 Other acute postprocedural pain (principal) | CPT/HCPCS: 99212 ==

== ENCOUNTER → 2020-07-20 12:57 | Outpatient (BNVA) | payer OTHER, SELFPAY | PROVIDERS: PCP Internal Medicine; Visit Provider Surgery | DX: K91.872 Postprocedural seroma of a digestive system organ or structure following a digestive system procedure (principal); Z87.19 Personal history of other diseases of the digestive system | CPT/HCPCS: 99212 ==

== ENCOUNTER → 2020-08-25 10:37 | Outpatient (BNVA) | payer OTHER, SELFPAY | PROVIDERS: PCP Internal Medicine; Visit Provider Surgery | DX: Z98.890 Other specified postprocedural states (principal); Z87.19 Personal history of other diseases of the digestive system | CPT/HCPCS: 99212 ==

== ENCOUNTER → 2020-09-15 10:17 | Outpatient (BNVA) | payer OTHER, SELFPAY | PROVIDERS: PCP Internal Medicine; Visit Provider Surgery | DX: Z48.815 Encounter for surgical aftercare following surgery on the digestive system (principal) | CPT/HCPCS: 99212 ==

== ENCOUNTER 2020-09-15 12:46 | Outpatient (RCR) | payer OTHER, SELFPAY | END 2021-01-23 16:24 | disposition home or self-care (01) | LOC: HO.WCC 12:46 | PROVIDERS: Visit Provider Surgery | DX: L92.8 Other granulomatous disorders of the skin and subcutaneous tissue (principal) | CPT/HCPCS: 11042; 17250; 99212; 99213 ==

== ENCOUNTER → 2020-10-04 10:51 | Outpatient (BNVA) | payer OTHER, SELFPAY | PROVIDERS: Visit Provider Internal Medicine | DX: K43.2 Incisional hernia without obstruction or gangrene (principal) | CPT/HCPCS: 99202 ==

== ENCOUNTER → 2020-10-17 11:24 | Outpatient (BNVA) | payer OTHER, SELFPAY | PROVIDERS: PCP Internal Medicine; Visit Provider Surgery | DX: S31.109A Unspecified open wound of abdominal wall, unspecified quadrant without penetration into peritoneal cavity, initial encounter (principal) | CPT/HCPCS: 99212 ==

== ENCOUNTER 2020-11-01 13:20 | Emergency (ER) | payer OTHER, SELFPAY ==
--- NOTE | ~2020-11-01 | CT_ITS ---
EXAMINATION: CT ABDOMEN AND PELVIS WITH CONTRAST CLINICAL INFORMATION: Lower abdominal pain with history of chronic wound and bowel obstruction. COMPARISON: 06/17/2020 TECHNIQUE: Multidetector volumetric images were obtained from the superior aspect of the liver through the pubic symphysis following administration 85 mL of Omnipaque 350 intravenous contrast. Sagittal and coronal reformatted images were obtained on the technologist's workstation. Oral Contrast: No. This CT examination was performed using dose optimization techniques as appropriate, variously including the following: *Automated exposure control. *Adjustment of mA and/or kV according to patient size (this includes techniques or standardized protocols for targeted exams where dose is matched to indication/reason for exam; i.e. extremities or head). *Use of iterative reconstruction technique. DLP: 909 mGy-cm FINDINGS: LUNG BASES: The visualized lung bases are unremarkable. LIVER, GALLBLADDER, AND BILIARY TREE: The liver is normal in size, shape, and attenuation. No focal hepatic lesion or biliary ductal dilatation is present. The gallbladder is unremarkable with no evidence of radiopaque gallstones, gallbladder wall thickening, or obvious pericholecystic inflammatory changes. PANCREAS: Unremarkable. SPLEEN: Unremarkable. ADRENAL GLANDS: Unremarkable. KIDNEYS AND URETERS: The kidneys are normal in size, shape, and attenuation. No hydronephrosis, hydroureter, or calculi seen. No perinephric stranding. BLADDER: Unremarkable. GASTROINTESTINAL TRACT: A sigmoid anastomosis is present. There is no evidence of bowel obstruction. The small and large bowel are otherwise unremarkable. The appendix is unremarkable. ABDOMINAL WALL: No significant hernia is appreciated. A small periumbilical hernia is present containing only fat. There is diastases of the rectus muscles below the umbilicus with some forward bulging. Again seen, in the left lower quadrant, is inflammatory changes and a soft tissue mass. When comparison is made to the prior study, there has been significant improvement in appearances with decrease in size of the abnormality as well as decrease in the extent of surrounding inflammatory change in abdominal wall and peritoneal cavity fat. LYMPH NODES: No retroperitoneal lymphadenopathy. VASCULAR: Unremarkable. PELVIC VISCERA: Prostate is normal in size. Seminal vesicles appear symmetrically engorged. OSSEOUS STRUCTURES: Degenerative changes are noted throughout the spine. There is grade 1 anterolisthesis of L5 upon S1 with associated pars defects. There is mild grade 1 retrolisthesis of L4 upon L5 with no pars defects seen. No bony destructive lesions are seen to suggest metastatic disease. CT/CT abdomen pelvis w con IMPRESSION: 1. An acute finding is not present. 2. There has been interval improvement in the soft tissue mass/inflammatory change in the left lower quadrant abdominal wall as described above. 3. Other findings as described above including sigmoid surgical anastomosis, small periumbilical hernia as well as rectus diastases and marked degenerative changes throughout the spine.
[2020-11-01 13:55] VITALS: BP 142/75; PULSE 72; RESP 16; TEMP 37.1; O2SAT 95; BMI 42.1
[2020-11-01] MEDS: Morphine Sulfate 4 MG/ML CARTRIDGE IVPUSH (15:48)
[2020-11-01 15:51] LABS: MANUAL DIFF FLAG NO
[2020-11-01 15:55] LABS: Basophils Percent Auto 0.4 % (0-2); Eosinophils Absolute Auto 0.3 X10*3/uL (0.0-0.4); Eosinophils Percent Auto 3.8 % (0-4); Hematocrit 43.7 % (42-52); Hemoglobin 14.4 g/dl (14.0-18.0); Imm Gran Abs Auto 0.03 X10*3/uL (0.00-0.03); Imm Gran Pct Auto 0.4 % (0.0-0.4); Lymphocytes Absolute Auto 1.9 X10*3/uL (1.2-4.9); Lymphocytes Percent Auto 26.3 % (20-40); Mean Corpuscular Hemoglobin 28.7 pg (27.0-33.0); Mean Corpuscular Volume 87.1 fL (80-98); Monocytes Absolute Auto 0.8 X10*3/uL (0.1-1.2); Monocytes Percent Auto 10.1 % (2-11); Neutrophils Absolute Auto 4.4 X10*3/uL (2.0-8.3); Platelet Count 256 X10*3/uL (160-400); Red Blood Count 5.02 X10*6/uL (4.60-5.80); Red Cell Distribution Width 13.6 % (11.0-16.0); White Blood Count 7.4 X10*3/uL (4.8-10.8)
[2020-11-01 15:57] LABS: Glucose Urine UA NEG (NEG); Leukocyte Esterase Urine NEG (NEG); Nitrite Urine NEG (NEG); Specific Gravity - Urine 1.015 (1.005-1.025); Urine Blood NEG (NEG); Urine Ketones NEG (NEG); Urine Protein NEG (NEG-TRACE)
[2020-11-01 15:59] LABS: Appearance Urine CLEAR; Color Urine YELLOW
[2020-11-01 16:09] LABS: Lactic Acid 0.8 mmol/L (0.5-2.0)
--- NOTE | 2020-11-01 16:15 | ED.ABDPAIN ---
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 He last went to the [facility] on Saturday. Last week he was inserting about 5 inches of packing into the wound. On Saturday he was only able to insert about 1 inch and now no packing is able to be inserted. This is associated with new onset of lower abdominal pain and tenderness. The wound continues to ooze a small amount of yellowish discharge which is unchanged. Pain is worse with movement and palpation. No nausea, vomiting, diarrhea, constipation, fever or chills. He last saw Dr. Nowak on 10/17/20 and he was prescribed Percocet for pain. MD elicited complaint: abdominal pain Pertinent past history: other (several abdominal surgeries) Onset (ago): day(s) (4) Pain Consistency: constant Location: RLQ and LLQ Severity: moderate Quality: aching Radiation: none Migration to: no migration Exacerbating factors: movement Relieving factors: nothing Context: recent surgery/procedure and history of similar episodes Associated symptoms: denies other symptoms Related Data Home Medications Medication Instructions Recorded Confirmed albuterol sulfate 2 puff INHALATION Q4H PRN 05/11/20 09/15/20 docusate sodium [Colace] 100 mg PO BID 05/11/20 09/15/20 escitalopram oxalate [Lexapro] 10 mg PO DAILY 05/11/20 09/15/20 levothyroxine 50 mcg PO DAILY 05/11/20 09/15/20 loratadine 10 mg PO DAILY 05/11/20 09/15/20 montelukast [Singulair] 10 mg PO BEDTIME 05/11/20 09/15/20 omeprazole 20 mg PO DAILY 05/11/20 09/15/20 fluticasone propion-salmeterol 1 puff INHALATION BID 05/25/20 09/15/20 [Santiela Inhub] hydrochlorothiazide 25 mg PO DAILY 05/25/20 09/15/20 ipratropium bromide 2 spray INTRANASAL TID PRN 05/25/20 09/15/20 tamsulosin 0.4 mg PO BEDTIME 05/25/20 09/15/20 Previous Rx's Medication Instructions Recorded amoxicillin-pot clavulanate 1 tab PO Q12H #10 tab 05/27/20 [Augmentin] amoxicillin-pot clavulanate 1 tab PO Q12H 7 Days #14 tab 06/17/20 [Augmentin] oxycodone 5 mg tablet 5 mg PO Q4H PRN #25 tab 07/05/20 oxycodone-acetaminophen 5 mg-325 1 tab PO TID PRN #20 tab 09/29/20 mg tablet oxycodone-acetaminophen 5 mg-325 1 tab PO TID PRN #20 tab 10/28/20 mg tablet Allergies Allergy/AdvReac Type Severity Reaction Status Date / Time egg [EGGS] Allergy Unknown ITCHY Verified 10/17/20 11:31 THROAT,SWELLING LIPS JANELL cooking spray Allergy Unknown swelling Uncoded 04/08/20 00:00 in mouth/tongue Review of Systems Review of Systems Constitutional: No Fever, No Chills Cardiovascular: No Chest Pain, No SOB, No Orthopnea, No Edema Respiratory: No Cough, No Sputum, No Wheezing, No dyspnea Gastrointestinal: No Nausea, No Vomiting, No Diarrhea, + abdominal Pain, No Hematochezia, No Melena Genitourinary: No Dysuria, No Urinary Frequency, No Hematuria Musculoskeletal: No joint pain, No Myalgias Skin: + Skin Lesions, No rash Neuro: No Weakness, No Numbness, No Dizziness, No Headache Psych: No Anxiety/Panic, No Depression Heme/Lymph: No Bruising, No Lymphadenopathy Endocrine: No Polyuria, No Polydipsia Physical Exam Vital Signs: Vital Signs: Last Vital Signs Temp 98.7 F 11/01/20 16:39 Pulse 54 11/01/20 16:39 Resp 20 11/01/20 16:39 BP 119/71 11/01/20 16:39 Pulse Ox 94 11/01/20 16:39 Body Mass Index 42.1 Appearance: Alert. Oriented X3. No acute distress. Eyes: Pupils equal, round and reactive to light. ENT: Pharynx normal. Neck: Normal inspection. Neck supple. CVS: Normal heart rate and rhythm. Pulses normal. Respiratory: No respiratory distress. Breath sounds normal. Abdomen: Obese, Soft with mild lower abdominal tenderness. small 1cm open area in LLQ with small amount of yellow discharge, no surrounding erythema, induration or fluctunace, no palpable mass +BS x4 Skin: Skin warm and dry. Normal skin color. Normal skin turgor. No rashes. Extremities: No lower extremity edema. Neuro: Oriented X 3. No motor deficit. No sensory deficit. Course Course Course Narrative: 49 y/o male presenting with lower abdominal pain in the setting of chronic nonhealing wound. No evidence of cellulitis or drainable abscess palpable on examination. Will get lab workup and CT scan for further evaluation. Patient reports 8/10 pain at this time, will give dose of morphine and reassess. Reevaluation(s) Reevaluation #1: Signed out to Bo Garcia who will assume care. MDM - Abdominal Pain Lab Data Result diagrams: 11/01/20 15:44 11/01/20 15:44 Labs: Lab Results 11/01/20 11/01/20 11/01/20 Range/Units 15:44 15:44 15:44 WBC 7.4 (4.8-10.8) X10*3/uL RBC 5.02 D (4.60-5.80) X10*6/uL Hgb 14.4 (14.0-18.0) g/dl Hct 43.7 (42-52) % MCV 87.1 (80-98) fL MCH 28.7 (27.0-33.0) pg MCHC 33.0 (31.0-36.0) g/dl RDW 13.6 (11.0-16.0) % Plt Count 256 D (160-400) X10*3/uL MPV 9.0 L (9.4-12.4) fL Immature Gran % (Auto) 0.4 (0.0-0.4) % Neut % (Auto) 59.0 (45-73) % Lymph % (Auto) 26.3 (20-40) % Petroleum % (Auto) 10.1 (2-11) % Eos % (Auto) 3.8 (0-4) % Baso % (Auto) 0.4 (0-2) % Lymph # (Auto) 1.9 (1.2-4.9) X10*3/uL Petroleum # (Auto) 0.8 (0.1-1.2) X10*3/uL Eos # (Auto) 0.3 (0.0-0.4) X10*3/uL Baso # (Auto) 0.0 (0.0-0.2) X10*3/uL Abs Immat Gran (auto) 0.03 (0.00-0.03) X10*3/uL Absolute Neuts (auto) 4.4 (2.0-8.3) X10*3/uL Absolute Nucleated RBC 0.000 (0.0-0.012) X10*3/uL Nucleated RBC % (auto) 0.0 (0.0-0.2) /100WBC Sodium 140 (135-145) mmol/L Potassium 4.3 (3.3-5.1) mmol/L Chloride 102 (96-108) mmol/L Carbon Dioxide 29 (22-29) mmol/L Anion Gap 13 (12-20) BUN 19 H D (9-16) mg/dL Creatinine 1.00 (0.5-1.4) mg/dL Estim Creat Clear Calc 129.1 Estimated GFR > 60 Random Glucose 94 (60-115) mg/dL Lactic Acid 0.8 (0.5-2.0) mmol/L Calcium 9.4 D (8.4-10.2) mg/dL Magnesium 2.0 (1.6-2.6) mg/dL Total Bilirubin 0.5 (0.0-1.0) mg/dL Direct Bilirubin < 0.2 (0.0-0.5) mg/dL AST 24 D (5-37) U/L ALT 24 (0-40) U/L Alkaline Phosphatase 76 (39-117) U/L Total Protein 7.5 (6.5-8.0) g/dL Albumin 4.2 (3.5-5.0) g/dL Lipase 27 (8-78) U/L Urine Color Urine Appearance Urine pH (5.0-8.0) Ur Specific [place] (1.005-1.025) Urine Protein (NEG-TRACE) MG/DL Urine Glucose (UA) (NEG) MG/DL Urine Ketones (NEG) MG/DL Urine Blood (NEG) Urine Nitrite (NEG) Ur Leukocyte Esterase (NEG) 11/01/20 Range/Units 15:44 WBC (4.8-10.8) X10*3/uL RBC (4.60-5.80) X10*6/uL Hgb (14.0-18.0) g/dl Hct (42-52) % MCV (80-98) fL MCH (27.0-33.0) pg MCHC (31.0-36.0) g/dl RDW (11.0-16.0) % Plt Count (160-400) X10*3/uL MPV (9.4-12.4) fL Immature Gran % (Auto) (0.0-0.4) % Neut % (Auto) (45-73) % Lymph % (Auto) (20-40) % Petroleum % (Auto) (2-11) % Eos % (Auto) (0-4) % Baso % (Auto) (0-2) % Lymph # (Auto) (1.2-4.9) X10*3/uL Petroleum # (Auto) (0.1-1.2) X10*3/uL Eos # (Auto) (0.0-0.4) X10*3/uL Baso # (Auto) (0.0-0.2) X10*3/uL Abs Immat Gran (auto) (0.00-0.03) X10*3/uL Absolute Neuts (auto) (2.0-8.3) X10*3/uL Absolute Nucleated RBC (0.0-0.012) X10*3/uL Nucleated RBC % (auto) (0.0-0.2) /100WBC Sodium (135-145) mmol/L Potassium (3.3-5.1) mmol/L Chloride (96-108) mmol/L Carbon Dioxide (22-29) mmol/L Anion Gap (12-20) BUN (9-16) mg/dL Creatinine (0.5-1.4) mg/dL Estim Creat Clear Calc Estimated GFR Random Glucose (60-115) mg/dL Lactic Acid (0.5-2.0) mmol/L Calcium (8.4-10.2) mg/dL Magnesium (1.6-2.6) mg/dL Total Bilirubin (0.0-1.0) mg/dL Direct Bilirubin (0.0-0.5) mg/dL AST (5-37) U/L ALT (0-40) U/L Alkaline Phosphatase (39-117) U/L Total Protein (6.5-8.0) g/dL Albumin (3.5-5.0) g/dL Lipase (8-78) U/L Urine Color YELLOW Urine Appearance CLEAR Urine pH 7.0 (5.0-8.0) Ur Specific [place] 1.015 (1.005-1.025) Urine Protein NEG (NEG-TRACE) MG/DL Urine Glucose (UA) NEG (NEG) MG/DL Urine Ketones NEG (NEG) MG/DL Urine Blood NEG (NEG) Urine Nitrite NEG (NEG) Ur Leukocyte Esterase NEG (NEG) Discharge Plan Discharge Prescriptions: No Action oxycodone 5 mg tablet 5 mg PO Q4H PRN (Reason: pain) Qty: 25 RF: 0 oxycodone-acetaminophen [Percocet] 5-325 mg tablet 1 tab PO TID PRN (Reason: pain) Qty: 20 RF: 0 oxycodone-acetaminophen [Percocet] 5-325 mg tablet 1 tab PO TID PRN (Reason: pain) Qty: 20 RF: 0 levothyroxine 50 mcg Tablet 50 mcg PO DAILY RF: 0 docusate sodium [Colace] 100 mg Capsule 100 mg PO BID RF: 0 omeprazole 20 mg Capsule,Delayed Release(Dr/Ec) 20 mg PO DAILY RF: 0 montelukast [Singulair] 10 mg Tablet 10 mg PO BEDTIME RF: 0 loratadine 10 mg Tablet 10 mg PO DAILY RF: 0 escitalopram oxalate [Lexapro] 10 mg Tablet 10 mg PO DAILY RF: 0 albuterol sulfate 90 mcg/actuation Hfa Aerosol Inhaler 2 puff INHALATION Q4H PRN (Reason: ASTHMA) RF: 0 tamsulosin 0.4 mg capsule 0.4 mg PO BEDTIME RF: 0 fluticasone propion-salmeterol [Wixela Inhub] 500-50 mcg/dose blister with device 1 puff inhalation BID RF: 0 hydrochlorothiazide 25 mg tablet 25 mg PO DAILY RF: 0 ipratropium bromide 0.03 % spray,non-aerosol 2 spray intranasal TID PRN (Reason: congestion) RF: 0 amoxicillin-pot clavulanate [Augmentin] 500-125 mg tablet 1 tab PO Q12H Qty: 10 RF: 0 amoxicillin-pot clavulanate [Augmentin] 875-125 mg tablet 1 tab PO Q12H 7 Days Qty: 14 RF: 0 PMFSH Past Medical History Attestation statement: The following information was validated with the patient. Medical History Anxiety Asthma Incisional hernia Incisional hernia Incisional pain Open wound anterior abdominal wall SBO (small bowel obstruction) Surgical History H/O hernia repair Status post Hattie's procedure Family History Family History Mother No problems noted. Father No problems noted. Maternal Grandfather History of prostate cancer Maternal Grandmother History of breast cancer Social History Social History Household Members: Spouse Housing: House Alcohol intake: former Smoking Status: Former smoker Second Hand Smoke Exposure: No Substance Use Type: Marijuana Advance Directives: No Advance Directives Information Provided: No service: No Current occupational status: disabled
[2020-11-01 16:16] LABS: Alanine Aminotransferase 24 U/L (0-40); Albumin Level 4.2 g/dL (3.5-5.0); Alkaline Phosphatase 76 U/L (39-117); Anion Gap 13 (12-20); Aspartate Amino Transferase 24 U/L (5-37); Bilirubin Direct < 0.2 mg/dL (0.0-0.5); Bilirubin Total 0.5 mg/dL (0.0-1.0); Blood Urea Nitrogen 19 mg/dL (9-16); Calcium 9.4 mg/dL (8.4-10.2); Carbon Dioxide 29 mmol/L (22-29); Chloride 102 mmol/L (96-108); Creatinine Clr Calc Pharmacy 129.1; Estimated Glomerular Filt Rate > 60; Glucose Random 94 mg/dL (60-115); Lipase 27 U/L (8-78); Potassium 4.3 mmol/L (3.3-5.1); Sodium 140 mmol/L (135-145); Total Protein 7.5 g/dL (6.5-8.0)
[2020-11-01 16:39] VITALS: BP 119/71; PULSE 54; RESP 20; TEMP 37.1; O2SAT 94
[2020-11-01] MEDS: 0.9 % Sodium Chloride 1,000 ML 999 ML IVCONT (16:50)
[2020-11-01 19:47] VITALS: BP 114/67; PULSE 53; RESP 16; TEMP 36.5; O2SAT 96
== END 2020-11-01 20:32 | disposition home or self-care (01) ==
PROVIDERS: Physician Assistant; Emergency Provider Emergency Medicine Emergency Medical Services; PCP Internal Medicine
DX: R10.31 Right lower quadrant pain (principal); R10.32 Left lower quadrant pain; F12.90 Cannabis use, unspecified, uncomplicated; Z79.899 Other long term (current) drug therapy; Z87.891 Personal history of nicotine dependence
CPT/HCPCS: 36415; 74177; 80048; 80076; 81003; 83605; 83690; 83735; 85025; 87040; 96365; 96375; 99283; 99284; J2270; Q9967

== ENCOUNTER → 2020-11-02 14:55 | Outpatient (BNVA) | payer OTHER, SELFPAY | PROVIDERS: PCP Internal Medicine; Visit Provider Surgery | DX: L76.82 Other postprocedural complications of skin and subcutaneous tissue (principal) | CPT/HCPCS: 99212 ==

== ENCOUNTER 2020-11-13 12:09 | Emergency (ER) | payer OTHER, SELFPAY ==
--- NOTE | ~2020-11-13 | XR_ITS ---
EXAMINATION: XR CHEST CLINICAL INFORMATION: Cough and fever COMPARISON: 06/25/2020 TECHNIQUE: Frontal view of the chest was obtained. FINDINGS: Normal symmetric lung volumes. No parenchymal consolidation. No pleural effusion. No pneumothorax. Cardiomediastinal silhouette and pulmonary vascularity are within normal limits. No acute osseous abnormalities. XR/XR chest 1V IMPRESSION: No acute findings
[2020-11-13 12:19] VITALS: BP 151/83; PULSE 87; RESP 18; TEMP 37.6; O2SAT 98; BMI 34.0
--- NOTE | 2020-11-13 12:30 | ED_ITS ---
HPI - General Adult General Chief complaint: Fever Stated complaint: sore throat,fever Time Seen by Provider: 11/13/20 12:22 Source: patient Mode of arrival: ambulatory Limitations: no limitations History of Present Illness HPI narrative: States has had runny nose/sinus congestion and mild type body aches for past 3 days with slight cough. Also would like have his incision site evaluated on his left lower quadrant where he has a previous incision for abdominal hernia repair status post Hattie's procedure a year ago and has had intermittent discomfort in some scant discharge from the site. Denies any GI symptoms. Aside from the slight redness and slight discharge no real pain at site. Similar to previous episodes. He does tell me that he has been seen here in emergency room a week ago and had a CT scan and subsequently he sought general surgery who he sees regularly for this and was told that he was doing well. Onset (ago): day(s) (3) Pain Consistency: constant Relieving factors: none Exacerbating factors: none Associated symptoms: cough Treatments prior to arrival: none Related Data Home Medications Medication Instructions Recorded Confirmed albuterol sulfate 2 puff INHALATION Q4H PRN 05/11/20 11/02/20 docusate sodium [Colace] 100 mg PO BID 05/11/20 11/02/20 escitalopram oxalate [Lexapro] 10 mg PO DAILY 05/11/20 11/02/20 levothyroxine 50 mcg PO DAILY 05/11/20 11/02/20 loratadine 10 mg PO DAILY 05/11/20 11/02/20 montelukast [Singulair] 10 mg PO BEDTIME 05/11/20 11/02/20 omeprazole 20 mg PO DAILY 05/11/20 11/02/20 fluticasone propion-salmeterol 1 puff INHALATION BID 05/25/20 11/02/20 [Wixela Inhub] hydrochlorothiazide 25 mg PO DAILY 05/25/20 11/02/20 ipratropium bromide 2 spray INTRANASAL TID PRN 05/25/20 11/02/20 tamsulosin 0.4 mg PO BEDTIME 05/25/20 11/02/20 Previous Rx's Medication Instructions Recorded amoxicillin-pot clavulanate 1 tab PO Q12H #10 tab 05/27/20 [Augmentin] amoxicillin-pot clavulanate 1 tab PO Q12H 7 Days #14 tab 06/17/20 [Augmentin] oxycodone 5 mg tablet 5 mg PO Q4H PRN #25 tab 07/05/20 oxycodone-acetaminophen 5 mg-325 1 tab PO TID PRN #20 tab 09/29/20 mg tablet naproxen 500 mg PO BID PRN #20 tab 11/01/20 oxycodone-acetaminophen 5 mg-325 1 tab PO TID PRN #20 tab 11/09/20 mg tablet doxycycline monohydrate 100 mg PO BID 7 Days #14 cap 11/13/20 Allergies Allergy/AdvReac Type Severity Reaction Status Date / Time egg [EGGS] Allergy Unknown ITCHY Verified 11/02/20 15:08 THROAT,SWELLING LIPS JANELL cooking spray Allergy Unknown swelling Uncoded 04/08/20 00:00 in mouth/tongue Review of Systems Review of Systems: Constitutional: No Weight loss, No Fever, +No Chills, No Night Sweats, No Fatigue, No Malaise ENT/Mouth: No Hearing loss, No Ear Pain, + Nasal Congestion, No Sinus Pain, No Hoarseness, No sore throat, No Swallowing Difficulty Eyes: No Eye Pain, No Swelling, No Redness, No Foreign Body, No Discharge, No Vision Changes Cardiovascular: No Chest Pain, No SOB, No Dyspnea on Exertion, No Orthopnea, No Edema, No Palpitations Respiratory: + Cough, No Sputum, No Wheezing, No Smoke Exposure, No Dyspnea Gastrointestinal: No Nausea, No Vomiting, No Diarrhea, No Constipation, No abdominal Pain, No Hematochezia, No Melena Genitourinary: No Dysuria, No Urinary Frequency, No Hematuria, No Urinary Inc ontinence, No Urgency, No Flank Pain, No Urinary Flow Changes, No Hesitancy Musculoskeletal: No joint pain, No Myalgias, No Joint Swelling Skin: No Skin Lesions, No rash Neuro: No Weakness, No Numbness, No Paresthesias, No Loss of Consciousness, No Dizziness, No Headache Psych: No Social Issues Heme/Lymph: No Bruising, No Bleeding,No Lymphadenopathy Endocrine: No Polyuria, No Polydipsia, No Temperature Intolerance Yes all other systems are reviewed and are negative PMFSH Past Medical History Medical History Anxiety Asthma Incisional hernia Incisional hernia Incisional pain Open wound anterior abdominal wall SBO (small bowel obstruction) Surgical History H/O hernia repair Status post Hattie's procedure Family History Family History Mother No problems noted. Father No problems noted. Maternal Grandfather History of prostate cancer Maternal Grandmother History of breast cancer Social History Social History Household Members: Spouse Housing: House Alcohol intake: former Smoking Status: Former smoker Second Hand Smoke Exposure: No Substance Use Type: Marijuana Advance Directives: No Advance Directives Information Provided: Yes service: No Current occupational status: disabled Physical Exam Vital Signs: Vital Signs: Last Vital Signs Temp 99.7 F 11/13/20 12:19 Pulse 87 11/13/20 12:19 Resp 18 11/13/20 12:19 BP 151/83 H 11/13/20 12:19 Pulse Ox 98 11/13/20 12:19 Body Mass Index 34.0 Reviewed Const: General: cooperative and healthy appearing; No acute distress or intoxicated appearing Nutritional Appearance: average body habitus O rientation/consciousness: patient oriented x3 HENMT: Head: Yes normal to inspection Ears: hearing grossly normal bilaterally Eyes: General: appearance normal, both eyes and all related structures Visual Myrick: normal visual myrick by confrontation Neck: Neck: Yes normal visual inspection, No positive Brudzinski's sign, No positive Kernig's sign and No tender Thyroid: Thyroid normal Chest: Chest palpation & inspection: normal inspection of the chest Resp: Effort & Inspection: normal respiratory effort Auscultation: clear to auscultation bilaterally Cardio: Jugular venous distension: no JVD Rhythm: regular rhythm Heart sounds: S1 normal heart sound present and S2 normal heart sound present GI: Other: Inspection: Yes normal to inspection Palpation (GI): Soft to palpation, nontender, no guarding, not rigid, hepatosplenomegaly present, no hernias, no masses, no pulsatile masses, No Ascites present and No Rebound tenderness present Percussion: Yes normal to percussion Auscultation: normal bowel sounds : General: Yes no CVA tenderness Back/Spine/Pelvis: Back: no CVA tenderness Skin: General skin exam: no rashes or lesions noted Neuro: General: patient oriented x3 Extrem: General: Yes normal to inspection Course Course Course Narrative: COVID positive, chest x-ray negative. Pulse ox 100% on room air no complaint of chest pain or shortness of breath. As it relates to the inc ision site pain this is very minimally erythematous and there is some scant discharge from the sinus area. There is no tender palpation site or obvious palpable mass or expressible discharge. Will start him on doxycycline short course and outpatient follow-up with General surgery for this. As it relates to COVID will provided CDC/[facility] guidelines and return/follow-up precautions. Agreeable c plan. Stable for discharge. Medical Decision Making Lab Data Labs: Lab Results 11/13/20 Range/Units 12:38 Coronavirus (PCR) POSITIVE A (Negative) Influenza Type A (PCR) NEGATIVE (Negative) Influenza Type B (PCR) NEGATIVE (Negative) RSV RNA Qual (PCR) NEGATIVE (Negative) Imaging Data Chest x-ray: Radiologist's impression: [address] [id number] ReportSigned Patient: Brady Dale RMR#: [id number]: [id number]:[id number]/Sex: 49 / MADM Date: 11/13/20Loc: [address]: Ordering Physician: Francisco Savage NP Date of Service: 11/13/20 Procedure(s): XR chest 1V Accession Number(s): [id number] cc: Francisco Savage FIELD TALENT QUALIFICATION SPECIALIST~ EXAMINATION: XR CHEST CLINICAL INFORMATION: Cough and fever COMPARISON: 06/25/2020 TECHNIQUE: Frontal view of the chest was obtained. FINDINGS: Normal symmetric lung volumes. No parenchymal consolidation. No pleural effusion. No pneumothorax. Cardiomediastinal silhouette and pulmonary vascularity are within normal limits. No acute osseous abnormalities. XR/XR chest 1V IMPRESSION: No acute findings Dictated By:NATE VALLES MDSigned By:<Electronically signed by NATE VALLES MD in OV>11/13/20 1254 DD/ 1227TD/TT: [employer] Aide Teacher: ABIGAIL Discharge Plan Discharge Clinical Impression: Incisional pain, COVID-19 Patient Disposition: Home, Self-Care Instructions: Chronic Wounds (ED), COVID-19 (Coronavirus Disease 2019) (ED) Additional Instructions: Keep site clean and dry and change dressings twice a day Given that there is very minimal redness I have taken pictures on your chart and you can follow-up on outpatient basis to have this compared I will start on antibiotics As it relates to your runny nose body aches sore throat You have COVID-19. Supportive care as discussed You must quarantine for 14 days Return if any concerns or worsening symptoms Thank you Prescriptions: New doxycycline monohydrate 100 mg capsule 100 mg PO BID 7 Days Qty: 14 RF: 0 No Action oxycodone 5 mg tablet 5 mg PO Q4H PRN (Reason: pain) Qty: 25 RF: 0 oxycodone-acetaminophen [Percocet] 5-325 mg tablet 1 tab PO TID PRN (Reason: pain) Qty: 20 RF: 0 oxycodone-acetaminophen [Percocet] 5-325 mg tablet 1 tab PO TID PRN (Reason: pain) Qty: 20 RF: 0 levothyroxine 50 mcg Tablet 50 mcg PO DAILY RF: 0 docusate sodium [Colace] 100 mg Capsule 100 mg PO BID RF: 0 omeprazole 20 mg Capsule,Delayed Release(Dr/Ec) 20 mg PO DAILY RF: 0 montelukast [Singulair] 10 mg Tablet 10 mg PO BEDTIME RF: 0 loratadine 10 mg Tablet 10 mg PO DAILY RF: 0 escitalopram oxalate [Lexapro] 10 mg Tablet 10 mg PO DAILY RF: 0 albuterol sulfate 90 mcg/actuation Hfa Aerosol Inhaler 2 puff INHALATION Q4H PRN (Reason: ASTHMA) RF: 0 tamsulosin 0.4 mg capsule 0.4 mg PO BEDTIME RF: 0 fluticasone propion-salmeterol [Wixela Inhub] 500-50 mcg/dose blister with device 1 puff inhalation BID RF: 0 hydrochlorothiazide 25 mg tablet 25 mg PO DAILY RF: 0 ipratropium bromide 0.03 % spray,non-aerosol 2 spray intranasal TID PRN (Reason: congestion) RF: 0 amoxicillin-pot clavulanate [Augmentin] 500-125 mg tablet 1 tab PO Q12H Qty: 10 RF: 0 amoxicillin-pot clavulanate [Augmentin] 875-125 mg tablet 1 tab PO Q12H 7 Days Qty: 14 RF: 0 naproxen 500 mg tablet 500 mg PO BID PRN (Reason: pain) Qty: 20 RF: 0 Referrals: Jamey Haq MD [Primary Care Provider] - 2 weeks (Phone visit) Discharge Date/Time: 11/13/20 14:07
[2020-11-13 13:35] LABS: Influenza A PCR NEGATIVE (Negative); Influenza B PCR NEGATIVE (Negative); Resp Syncy Virus RNA Qual PCR NEGATIVE (Negative); SARS COV2 PCR INHOUSE POSITIVE (Negative)
== END 2020-11-13 14:07 | disposition home or self-care (01) ==
PROVIDERS: Nurse Practitioner Primary Care; Emergency Provider Emergency Medicine; PCP Internal Medicine
DX: U07.1 COVID-19 (principal); R50.9 Fever, unspecified; R10.33 Periumbilical pain; M79.10 Myalgia, unspecified site; R05 Cough; Z79.899 Other long term (current) drug therapy; Z87.891 Personal history of nicotine dependence
CPT/HCPCS: 0241U; 36415; 71045; 87071; 87880; 99283

== ENCOUNTER 2020-11-30 14:10 | Outpatient (REF) | payer OTHER, SELFPAY | END 2020-11-30 14:11 | disposition home or self-care (01) | LOC: HO.LAB 14:10 | PROVIDERS: Visit Provider Internal Medicine | DX: Z20.822 Contact with and (suspected) exposure to COVID-19 (principal) | CPT/HCPCS: C9803; U0003; U0005 ==

== ENCOUNTER 2020-12-12 13:34 | Outpatient (REF) | payer OTHER, SELFPAY | END 2020-12-12 13:35 | disposition home or self-care (01) | LOC: HO.LAB 13:34 | PROVIDERS: Visit Provider Internal Medicine | DX: Z20.822 Contact with and (suspected) exposure to COVID-19 (principal) | CPT/HCPCS: C9803; U0003; U0005 ==

== ENCOUNTER 2020-12-26 13:19 | Outpatient (REF) | payer OTHER, SELFPAY ==
[2020-12-26 13:51] LABS: COVID-19 Test Negative (Negative); IDNOW Serial# 55D5AD1C
== END 2020-12-26 13:20 | disposition home or self-care (01) ==
LOC: HO.LAB 13:19
PROVIDERS: Visit Provider Internal Medicine
DX: Z20.822 Contact with and (suspected) exposure to COVID-19 (principal)
CPT/HCPCS: 36415; 87635; C9803

== ENCOUNTER 2021-01-02 10:50 | Outpatient (REF) | payer OTHER, SELFPAY ==
--- NOTE | ~2021-01-02 | XR_ITS ---
EXAMINATION: XR CHEST CLINICAL INFORMATION: Dyspnea and chest pain COMPARISON: 11/14/2019 TECHNIQUE: 2 views of the chest were obtained. FINDINGS: No significant abnormality is noted involving the heart, lungs, mediastinum, bony thorax or soft tissues. XR/XR chest 2V IMPRESSION: Unremarkable examination.
== END 2021-01-02 10:51 | disposition home or self-care (01) ==
LOC: HO.XRAY 10:50
PROVIDERS: PCP Internal Medicine; Visit Provider Registered Nurse
DX: R07.89 Other chest pain (principal); R06.00 Dyspnea, unspecified
CPT/HCPCS: 71046

== ENCOUNTER 2021-01-05 21:53 | Emergency (ER) | payer OTHER, SELFPAY ==
--- NOTE | ~2021-01-05 | XR_ITS ---
EXAMINATION: XR LUMBOSACRAL SPINE CLINICAL INFORMATION: Back pain COMPARISON: CT from 11/01/2020. TECHNIQUE: Three views of the lumbosacral spine. FINDINGS: No fracture or acute subluxation. Likely L5 pars defects with grade 1 anterolisthesis of L5 on S1. Vertebral body height and alignment is otherwise maintained. Mild diffuse disc space narrowing with endplate osteophyte formation. The sacroiliac joints are symmetric. The visualized sacrum is intact. The visualized bowel gas pattern is unremarkable. XR/XR lumbar spine 2-3V IMPRESSION: Mild to moderate multilevel degenerative changes throughout the lumbar spine. This is unchanged from prior CT.
[2021-01-05 22:02] VITALS: BP 108/61; PULSE 75; RESP 18; TEMP 37.1; O2SAT 95; BMI 45.3
--- NOTE | 2021-01-05 23:52 | ED_ITS ---
HPI - Back Pain/Injury General Chief Complaint: Back Pain/Injury Stated Complaint: fall 2 weeks ago Time Seen by Provider: 01/05/21 23:50 History of Present Illness HPI Narrative: Patient is a 50-year-old male history of having sciatica. Complaining of back pain after falling. Patient fell approximately 2 weeks ago presents today with having pain going down both legs. Patient feels that the pain is worse shooting down the left leg. There is no bowel urinary incontinence. There was no fever no chills. No chest pain or shortness of breath no diaphoresis. Positive history of anxiety per the history of hernia positive history COVID-19 in the past patient from home. Not on blood thinners Related Data Home Medications Medication Instructions Recorded Confirmed albuterol sulfate 2 puff INHALATION Q4H PRN 05/11/20 11/02/20 docusate sodium [Colace] 100 mg PO BID 05/11/20 11/02/20 escitalopram oxalate [Lexapro] 10 mg PO DAILY 05/11/20 11/02/20 levothyroxine 50 mcg PO DAILY 05/11/20 11/02/20 loratadine 10 mg PO DAILY 05/11/20 11/02/20 montelukast [Singulair] 10 mg PO BEDTIME 05/11/20 11/02/20 omeprazole 20 mg PO DAILY 05/11/20 11/02/20 fluticasone propion-salmeterol 1 puff INHALATION BID 05/25/20 11/02/20 [Wixela Inhub] hydrochlorothiazide 25 mg PO DAILY 05/25/20 11/02/20 ipratropium bromide 2 spray INTRANASAL TID PRN 05/25/20 11/02/20 Previous Rx's Medication Instructions Recorded amoxicillin-pot clavulanate 1 tab PO Q12H #10 tab 05/27/20 [Augmentin] amoxicillin-pot clavulanate 1 tab PO Q12H 7 Days #14 tab 06/17/20 [Augmentin] oxycodone 5 mg tablet 5 mg PO Q4H PRN #25 tab 07/05/20 naproxen 500 mg PO BID PRN #20 tab 11/01/20 doxycycline monohydrate 100 mg PO BID 7 Days #14 cap 11/13/20 oxycodone-acetaminophen 5 mg-325 1 tab PO TID PRN #20 tab 11/22/20 mg tablet tamsulosin 0.4 mg capsule 0.4 mg PO BEDTIME 90 Days #90 cap 12/27/20 oxycodone-acetaminophen 5 mg-325 1 tab PO BID PRN #20 tab 12/29/20 mg tablet carisoprodol [Soma] 350 mg PO TID PRN 3 Days #10 tab 01/06/21 ibuprofen 400 mg PO Q6H PRN #20 tab 01/06/21 oxycodone-acetaminophen [Percocet] 1 tab PO Q6H PRN #10 tab 01/06/21 Allergies Allergy/AdvReac Type Severity Reaction Status Date / Time egg [EGGS] Allergy Unknown ITCHY Verified 11/02/20 15:08 THROAT,SWELLING LIPS JANELL cooking spray Allergy Unknown swelling Uncoded 04/08/20 00:00 in mouth/tongue Review of Systems Review of Systems: Constitutional: No Weight loss, No Fever, No Chills, No Night Sweats, No Fatigue, No Malaise ENT/Mouth: No Hearing loss, No Ear Pain, No Nasal Congestion, No Sinus Pain, No Hoarseness, No sore throat, No Rhinorrhea, No Swallowing Difficulty Eyes: No Eye Pain, No Swelling, No Redness, No Foreign Body, No Discharge, No Vision Changes Cardiovascular: No Chest Pain, No SOB, No Dyspnea on Exertion, No Orthopnea, No Edema, No Palpitations Respiratory: No Cough, No Sputum, No Wheezing, No Smoke Exposure, No Dyspnea Gastrointestinal: No Nausea, No Vomiting, No Diarrhea, No Constipation, No abdominal Pain, No Hematochezia, No Melena Genitourinary: no irregular bleeding, No Dysuria, No Urinary Frequency, No Hematuria, No Urinary Incontinence, No Urgency, No Flank Pain, No Urinary Flow Changes, No Hesitancy Musculoskeletal: No joint pain, No Myalgias, No Joint Swelling. Positive bilateral lower extremity pain positive back pain Skin: No Skin Lesions, No rash Neuro: No Weakness, No Numbness, No Paresthesias, No Loss of Consciousness, No Dizziness, No Headache Psych: No Anxiety/Panic, No Depression, No SI/HI/AH/VH, No Social Issues, Heme/Lymph: No Bruising, No Bleeding,No Lymphadenopathy Endocrine: No Polyuria, No Polydipsia, No Temperature Intolerance [facility] Past Medical History Medical History Anxiety Asthma Incisional hernia Incisional hernia Incisional pain Open wound anterior abdominal wall SBO (small bowel obstruction) Surgical History H/O hernia repair Status post Hattie's procedure Family History Family History Mother No problems noted. Father No problems noted. Maternal Grandfather History of prostate cancer Maternal Grandmother History of breast cancer Social History Social History Household Members: Spouse Housing: House Do you presently have visiting nurse or other home services: No Alcohol intake: former Second Hand Smoke Exposure: No Substance Use Type: Marijuana Advance Directives: No Advance Directives Information Provided: No service: No Current occupational status: disabled Physical Exam Vital Signs: Vital Signs: Last Vital Signs Temp 98.7 F 01/05/21 22:02 Pulse 69 01/06/21 02:04 Resp 16 01/06/21 02:04 BP 133/87 01/06/21 02:04 Pulse Ox 95 01/05/21 22:02 Body Mass Index 45.3 Appearance: Alert. Oriented X3. No acute distress. Eyes: Pupils equal, round and reactive to light. ENT: Pharynx normal. Neck: Normal inspection. Neck supple. No lymph nodes noted. No crepitus CVS: Normal heart rate and rhythm. Pulses normal. Normal S1 and S2 Respiratory: No respiratory distress. Breath sounds normal. No Wheezing. No rales Abdomen: Soft and nontender. No rigidity. No distention. good BS x4 Skin: Skin warm and dry. Normal skin color. Normal skin turgor. Examination of the back there is no spinal tenderness elicited on palpation. Positive paraspinal muscle tenderness elicited bilaterally. Patient has good sensation in bilateral lower extremity. Reflexes are 2+ at patella. Skin was intact. Negative straight leg raise test bilaterally. Pulse 2 + at patella. S ensation over the foot intact. Capillary refill less than 2 seconds. Extremities: No lower extremity edema. Neurovascular intact to all extremities. No Lacerations. No Rash Neuro: Oriented X 3. No motor deficit. No sensory deficit. Moving all extermities. No slurred speech MDM - Back Pain/Injury MDM Narrative Medical decision making narrative: Pain similar to previous bouts of sciatica. Patient has no bowel urinary incontinence. No focal weakness. Patient's x-ray showed no acute fracture. Will discharge patient home as pain is control after medication in the emergency department. In stable condition. Differential Diagnosis Differential diagnosis: Likely sciatica Discharge Plan Discharge Clinical Impression: Sciatica Patient Disposition: Home, Self-Care Instructions: Sciatica (ED) Prescriptions: New ibuprofen 400 mg tablet 400 mg PO Q6H PRN (Reason: pain) Qty: 20 RF: 0 carisoprodol [Soma] 350 mg tablet 350 mg PO TID PRN (Reason: muscle pain) 3 Days Qty: 10 RF: 0 oxycodone-acetaminophen [Percocet] 5-325 mg tablet 1 tab PO Q6H PRN (Reason: pain) Qty: 10 RF: 0 No Action oxycodone 5 mg tablet 5 mg PO Q4H PRN (Reason: pain) Qty: 25 RF: 0 oxycodone-acetaminophen [Percocet] 5-325 mg tablet 1 tab PO TID PRN (Reason: pain) Qty: 20 RF: 0 tamsulosin 0.4 mg capsule 0.4 mg PO BEDTIME 90 Days Qty: 90 RF: 1 oxycodone-acetaminophen [Percocet] 5-325 mg tablet 1 tab PO BID PRN (Reason: pain) Qty: 20 RF: 0 levothyroxine 50 mcg Tablet 50 mcg PO DAILY RF: 0 docusate sodium [Colace] 100 mg Capsule 100 mg PO BID RF: 0 omeprazole 20 mg Capsule,Delayed Release(Dr/Ec) 20 mg PO DAILY RF: 0 montelukast [Singulair] 10 mg Tablet 10 mg PO BEDTIME RF: 0 loratadine 10 mg Tablet 10 mg PO DAILY RF: 0 escitalopram oxalate [Lexapro] 10 mg Tablet 10 mg PO DAILY RF: 0 albuterol sulfate 90 mcg/actuation Hfa Aerosol Inhaler 2 puff INHALATION Q4H PRN (Reason: ASTHMA) RF: 0 fluticasone propion-salmeterol [Wixela Inhub] 500-50 mcg/dose blister with device 1 puff inhalation BID RF: 0 hydrochlorothiazide 25 mg tablet 25 mg PO DAILY RF: 0 ipratropium bromide 0.03 % spray,non-aerosol 2 spray intranasal TID PRN (Reason: congestion) RF: 0 amoxicillin-pot clavulanate [Augmentin] 500-125 mg tablet 1 tab PO Q12H Qty: 10 RF: 0 amoxicillin-pot clavulanate [Augmentin] 875-125 mg tablet 1 tab PO Q12H 7 Days Qty: 14 RF: 0 naproxen 500 mg tablet 500 mg PO BID PRN (Reason: pain) Qty: 20 RF: 0 doxycycline monohydrate 100 mg capsule 100 mg PO BID 7 Days Qty: 14 RF: 0 Referrals: Jamey Haq MD [Primary Care Provider] - 2 days
[2021-01-06] MEDS: LORazepam 2 MG/ML VIAL 1 MG IVPUSH (00:05)
[2021-01-06] MEDS: Ketorolac Tromethamine 15 MG/ML VIAL IVPUSH (00:05)
[2021-01-06] MEDS: HYDROmorphone HCl 0.5 MG/0.5 ML SYRINGE IVPUSH ×2 (00:06→02:11)
--- NOTE | 2021-01-06 00:40 | PC.NURSE ---
Pt reports some relief of pain, awaiting XRay. Pt resting in bed with family at bedside, lights dim for comfort. Call ortiz within reach, continue to monitor.
--- NOTE | 2021-01-06 01:30 | PC.NURSE ---
Off to XRay on hospital bed.
--- NOTE | 2021-01-06 02:03 | PC.NURSE ---
Pt ringing his call ortiz, states his pain returned, requesting additional pain medications. aware. VSS.
[2021-01-06 02:04] VITALS: BP 133/87; PULSE 69; RESP 16
--- NOTE | 2021-01-06 02:08 | PC.NURSE ---
MD at bedside explaining results and plan of care.
== END 2021-01-06 02:21 | disposition home or self-care (01) ==
PROVIDERS: Emergency Provider Emergency Medicine Emergency Medical Services; PCP Internal Medicine
DX: M54.41 Lumbago with sciatica, right side (principal); M54.42 Lumbago with sciatica, left side; M79.662 Pain in left lower leg; M79.661 Pain in right lower leg; Z79.899 Other long term (current) drug therapy
CPT/HCPCS: 72100; 96374; 96375; 99284; J1170; J1885; J2060

== ENCOUNTER 2021-01-27 20:30 | Emergency (ER) | payer OTHER, SELFPAY ==
[2021-01-27 20:49] VITALS: BP 112/57; PULSE 72; RESP 17; TEMP 36.9; O2SAT 98; BMI 32.1
--- NOTE | 2021-01-27 23:34 | ED_ITS ---
HPI - Back Pain/Injury General Chief Complaint: Back Pain/Injury Stated Complaint: back and leg pain Time Seen by Provider: 01/27/21 23:33 Source: patient Mode of arrival: ambulatory Limitations: no limitations History of Present Illness HPI Narrative: 50-year-old male with past medical history of anxiety, hypothyroidism, hypertension, morbid obesity is here today for complaining of lower back pain. Patient has been seen here on the 05 of January after falling. Patient was treated with muscle relaxants, anti-inflammatory medications and oxycodone. Patient was sent home. He ran out of his medications. His PCP is sending him for MRI. Patient had this pain before similar to previous of sciatic up. Patient has no bowel or urinary incontinence. Denies any focal weakness Related Data Home Medications Medication Instructions Recorded Confirmed albuterol sulfate 2 puff INHALATION Q4H PRN 05/11/20 11/02/20 docusate sodium [Colace] 100 mg PO BID 05/11/20 11/02/20 escitalopram oxalate [Lexapro] 10 mg PO DAILY 05/11/20 11/02/20 levothyroxine 50 mcg PO DAILY 05/11/20 11/02/20 loratadine 10 mg PO DAILY 05/11/20 11/02/20 montelukast [Singulair] 10 mg PO BEDTIME 05/11/20 11/02/20 omeprazole 20 mg PO DAILY 05/11/20 11/02/20 fluticasone propion-salmeterol 1 puff INHALATION BID 05/25/20 11/02/20 [Wixela Inhub] hydrochlorothiazide 25 mg PO DAILY 05/25/20 11/02/20 ipratropium bromide 2 spray INTRANASAL TID PRN 05/25/20 11/02/20 Previous Rx's Medication Instructions Recorded amoxicillin-pot clavulanate 1 tab PO Q12H #10 tab 05/27/20 [Augmentin] amoxicillin-pot clavulanate 1 tab PO Q12H 7 Days #14 tab 06/17/20 [Augmentin] oxycodone 5 mg tablet 5 mg PO Q4H PRN #25 tab 07/05/20 naproxen 500 mg PO BID PRN #20 tab 11/01/20 doxycycline monohydrate 100 mg PO BID 7 Days #14 cap 11/13/20 oxycodone-acetaminophen 5 mg-325 1 tab PO TID PRN #20 tab 11/22/20 mg tablet tamsulosin 0.4 mg capsule 0.4 mg PO BEDTIME 90 Days #90 cap 12/27/20 carisoprodol [Soma] 350 mg PO TID PRN 3 Days #10 tab 01/06/21 ibuprofen 400 mg PO Q6H PRN #20 tab 01/06/21 oxycodone-acetaminophen [Percocet] 1 tab PO Q6H PRN #10 tab 01/06/21 oxycodone-acetaminophen 5 mg-325 1 tab PO BID PRN #20 tab 01/20/21 mg tablet cyclobenzaprine 10 mg PO BID PRN #10 tab 01/28/21 naproxen 500 mg PO BID PRN #20 tab 01/28/21 Allergies Allergy/AdvReac Type Severity Reaction Status Date / Time egg [EGGS] Allergy Unknown ITCHY Verified 11/02/20 15:08 THROAT,SWELLING LIPS JANELL cooking spray Allergy Unknown swelling Uncoded 04/08/20 00:00 in mouth/tongue Review of Systems Review of Systems: Constitutional : No Weight loss, No Fever, No Chills, No Night Sweats, No Fatigue, No Malaise ENT/Mouth : No Hearing loss, No Ear Pain, No Nasal Congestion, No Sinus Pain, No Hoarseness, No sore throat, No Rhinorrhea, No Swallowing Difficulty Eyes: No Eye Pain, No Swelling, No Redness, No Foreign Body, No Discharge, No Vision Changes Cardiovascular : No Chest Pain, No SOB, No Dyspnea on Exertion, No Orthopnea, No Edema, No Palpitations Respiratory : No Cough, No Sputum, No Wheezing, No Smoke Exposure, No Dyspnea Gastrointestinal : No Nausea, No Vomiting, No Diarrhea, No Constipation, No abdominal Pain, No Hematochezia, No Melena Genitourinary : no irregular bleeding, No Dysuria, No Urinary Frequency, No Hematuria, No Urinary Incontinence, No Urgency, No Flank Pain, No Urinary Flow Changes, No Hesitancy Musculoskeletal : No joint pain, Myalgias, No Joint Swelling Skin : No Skin Lesions, No rash Neuro : No Weakness, No Numbness, No Paresthesias, No Loss of Consciousness, No Dizziness, No Headache Psych : No Anxiety/Panic, No Depression, No SI/HI/AH/VH, No Social Issues, Heme/Lymph: No Bruising, No Bleeding,No Lymphadenopathy Endocrine : No Polyuria, No Polydipsia, No Temperature Intolerance Yes all other systems are reviewed and are negative PMFSH Past Medical History Medical History Anxiety Asthma Incisional hernia Incisional hernia Incisional pain Open wound anterior abdominal wall SBO (small bowel obstruction) Surgical History H/O hernia repair Status post Hattie's procedure Family History Family History Mother No problems noted. Father No problems noted. Maternal Grandfather History of prostate cancer Maternal Grandmother History of breast cancer Social History Social History Household Members: Spouse Housing: House Do you presently have visiting nurse or other home services: No Alcohol intake: former Second Hand Smoke Exposure: No Substance Use Type: Marijuana Advance Directives: No Advance Directives Information Provided: No service: No Current occupational status: disabled Physical Exam Vital Signs: Vital Signs: Last Vital Signs Temp 98.4 F 01/27/21 20:49 Pulse 72 01/27/21 20:49 Resp 17 01/27/21 20:49 BP 112/57 L 01/27/21 20:49 Pulse Ox 98 01/27/21 20:49 Body Mass Index 32.1 Const: General: healthy appearing, no acute distress and well developed Nutritional Appearance: well nourished Orientation/consciousness: patient oriented x3 Neck: Neck: Yes normal visual inspection, Yes full ROM and Yes trachea midline Thyroid: Thyroid normal Resp: Auscultation: clear to auscultation bilaterally Cardio: Rate: regular rate Rhythm: regular rhythm GI: Inspection: Yes normal to inspection, No distended and Yes obesity Palpation (GI): No hepatosplenomegaly present Auscultation: normal bowel sounds : General: Yes no CVA tenderness Back/Spine/Pelvis: Back: no CVA tenderness Thoracic/Lumbar Spine: thoracic and lumbar spine normal to inspection Pelvis: sciatic notch tenderness (Bilaterally) Skin: General skin exam: elasticity normal, turgor normal and dry skin Neuro: General: patient oriented x3 Course Course Course Narrative: 50-year-old male is here today for back pain. Patient injured himself back on January 06 was seen here in the emergency department and sent home with anti-inflammatory, oxycodone and Soma. Patient reports he ran out of all this medication and reports that pain has returned. Patient does not have any spinal tenderness elicited on palpation. Positive paraspinal muscle tenderness more on the right than left. Good sensation to the bilateral lower extremities. Negative straight leg test bilaterally. Positive sensation to foot bilaterally good capillary reflex. I would medicate him with a test laboratory and cyclobenzaprine. I will not reorder any additional testing as patient did not injured himself Reevaluation(s) Reevaluation #1: Patient reports to be feeling better after medications. I will have him follow-up with his PCP. We will send him home with cyclobenzaprine and naproxen. Discharge Plan Discharge Clinical Impression: Strain of lumbar region Qualifiers: Encounter type: subsequent encounter Qualified Code(s): S39.012D - Strain of muscle, fascia and tendon of lower back, subsequent encounter Sciatica Qualifiers: Laterality: bilateral Qualified Code(s): M54.31 - Sciatica, right side Patient Disposition: Home, Self-Care Instructions: Sciatica (ED), Back Pain (ED) Additional Instructions: You were seen here today for complaints of lower back pain. Your exam was nega tive for any acute processes. You were given muscle relaxant and anti- inflammatory medication. You will be sent home on both of these medications. Please make sure you will not be operating any vehicle or will not be drinking any alcohol while taking the muscle relaxant. Please follow-up with the PCP in 3 days. You may return to emergency department if you experience any additional concerning symptoms or if his symptoms will get worse. Prescriptions: New naproxen 500 mg tablet 500 mg PO BID PRN (Reason: pain) Qty: 20 RF: 0 cyclobenzaprine 10 mg tablet 10 mg PO BID PRN (Reason: muscle spasm) Qty: 10 RF: 0 No Action oxycodone 5 mg tablet 5 mg PO Q4H PRN (Reason: pain) Qty: 25 RF: 0 oxycodone-acetaminophen [Percocet] 5-325 mg tablet 1 tab PO TID PRN (Reason: pain) Qty: 20 RF: 0 tamsulosin 0.4 mg capsule 0.4 mg PO BEDTIME 90 Days Qty: 90 RF: 1 oxycodone-acetaminophen [Percocet] 5-325 mg tablet 1 tab PO BID PRN (Reason: pain) Qty: 20 RF: 0 levothyroxine 50 mcg Tablet 50 mcg PO DAILY RF: 0 docusate sodium [Colace] 100 mg Capsule 100 mg PO BID RF: 0 omeprazole 20 mg Capsule,Delayed Release(Dr/Ec) 20 mg PO DAILY RF: 0 montelukast [Singulair] 10 mg Tablet 10 mg PO BEDTIME RF: 0 loratadine 10 mg Tablet 10 mg PO DAILY RF: 0 escitalopram oxalate [Lexapro] 10 mg Tablet 10 mg PO DAILY RF: 0 albuterol sulfate 90 mcg/actuation Hfa Aerosol Inhaler 2 puff INHALATION Q4H PRN (Reason: ASTHMA) RF: 0 fluticasone propion-salmeterol [Wixela Inhub] 500-50 mcg/dose blister with device 1 puff inhalation BID RF: 0 hydrochlorothiazide 25 mg tablet 25 mg PO DAILY RF: 0 ipratropium bromide 0.03 % spray,non-aerosol 2 spray intranasal TID PRN (Reason: congestion) RF: 0 amoxicillin-pot clavulanate [Augmentin] 500-125 mg tablet 1 tab PO Q12H Qty: 10 RF: 0 amoxicillin-pot clavulanate [Augmentin] 875-125 mg tablet 1 tab PO Q12H 7 Days Qty: 14 RF: 0 naproxen 500 mg tablet 500 mg PO BID PRN (Reason: pain) Qty: 20 RF: 0 doxycycline monohydrate 100 mg capsule 100 mg PO BID 7 Days Qty: 14 RF: 0 ibuprofen 400 mg tablet 400 mg PO Q6H PRN (Reason: pain) Qty: 20 RF: 0 carisoprodol [Soma] 350 mg tablet 350 mg PO TID PRN (Reason: muscle pain) 3 Days Qty: 10 RF: 0 oxycodone-acetaminophen [Percocet] 5-325 mg tablet 1 tab PO Q6H PRN (Reason: pain) Qty: 10 RF: 0 Stand Alone Forms: Work/School Release Interventions: ED Discharge Assessment Last Done: 01/28/21 00:42 Discharge Date/Time: 01/28/21 00:46
[2021-01-27] MEDS: Cyclobenzaprine HCl 10 MG TABLET PO (23:46)
[2021-01-27] MEDS: Ketorolac Tromethamine 60 MG/2 ML VIAL IM (23:46)
== END 2021-01-28 00:46 | disposition home or self-care (01) ==
PROVIDERS: Emergency Provider Internal Medicine; PCP Internal Medicine
DX: M54.31 Sciatica, right side (principal); S39.012D Strain of muscle, fascia and tendon of lower back, subsequent encounter; X58.XXXD Exposure to other specified factors, subsequent encounter; I10 Essential (primary) hypertension; Z79.899 Other long term (current) drug therapy
CPT/HCPCS: 96372; 99284; J1885

== ENCOUNTER → 2021-02-02 13:42 | Outpatient (BNVA) | payer OTHER, SELFPAY | PROVIDERS: PCP Internal Medicine; Referring Provider Internal Medicine; Visit Provider Surgery | DX: T81.89XD Other complications of procedures, not elsewhere classified, subsequent encounter (principal); E66.9 Obesity, unspecified | CPT/HCPCS: 99212 ==

== ENCOUNTER 2021-02-14 14:44 | Emergency (ER) | payer OTHER, SELFPAY ==
[2021-02-14 15:59] VITALS: BP 119/94; PULSE 81; RESP 20; TEMP 36.4; O2SAT 97; BMI 45.1
--- NOTE | 2021-02-14 16:15 | ED_ITS ---
HPI - Back Pain/Injury General Chief Complaint: Back Pain/Injury Stated Complaint: Back pain Source: patient Mode of arrival: ambulatory Limitations: no limitations History of Present Illness HPI Narrative: 50-year-old male with past medical history of anxiety, asthma, small-bowel obstruction, obesity, and chronic back pain presents with back and leg pain. States that he had an MRI a couple days ago and was looking for the results however when he called the physician he was unable to obtain the results of his MRI from the 06 of January. He states that he does have urinary incontinence, loss of sensation, and bilateral leg pain. He is being followed by Neurology as well as Urology for these problems. Does not feel that these problems are worsened, primarily feels anxiety because he does not know the results of his MRI test. MD elicited complaint: back pain Pertinent past history: prior back pain and neurological deficit Timing: constant Severity: moderate Similar Symptoms Previously: Yes Location: lumbar spine Radiation: left upper leg, right upper leg, left leg below the knee and right leg below the knee Exacerbating factors: movement and walking Relieving factors: none Associated symptoms: numbness, loss of sensation in lower extremities and urinary incontinence Work related injury: No Related Data Home Medications Medication Instructions Recorded Confirmed albuterol sulfate 2 puff INHALATION Q4H PRN 05/11/20 02/02/21 docusate sodium [Colace] 100 mg PO BID 05/11/20 02/02/21 escitalopram oxalate [Lexapro] 10 mg PO DAILY 05/11/20 02/02/21 levothyroxine 50 mcg PO DAILY 05/11/20 02/02/21 loratadine 10 mg PO DAILY 05/11/20 02/02/21 montelukast [Singulair] 10 mg PO BEDTIME 05/11/20 02/02/21 omeprazole 20 mg PO DAILY 05/11/20 02/02/21 fluticasone propion-salmeterol 1 puff INHALATION BID 05/25/20 02/02/21 [Wixela Inhub] hydrochlorothiazide 25 mg PO DAILY 05/25/20 02/02/21 ipratropium bromide 2 spray INTRANASAL TID PRN 05/25/20 02/02/21 Previous Rx's Medication Instructions Recorded amoxicillin-pot clavulanate 1 tab PO Q12H #10 tab 05/27/20 [Augmentin] amoxicillin-pot clavulanate 1 tab PO Q12H 7 Days #14 tab 06/17/20 [Augmentin] oxycodone 5 mg tablet 5 mg PO Q4H PRN #25 tab 07/05/20 naproxen 500 mg PO BID PRN #20 tab 11/01/20 doxycycline monohydrate 100 mg PO BID 7 Days #14 cap 11/13/20 oxycodone-acetaminophen 5 mg-325 1 tab PO TID PRN #20 tab 11/22/20 mg tablet tamsulosin 0.4 mg capsule 0.4 mg PO BEDTIME 90 Days #90 cap 12/27/20 carisoprodol [Soma] 350 mg PO TID PRN 3 Days #10 tab 01/06/21 ibuprofen 400 mg PO Q6H PRN #20 tab 01/06/21 oxycodone-acetaminophen [Percocet] 1 tab PO Q6H PRN #10 tab 01/06/21 oxycodone-acetaminophen 5 mg-325 1 tab PO BID PRN #20 tab 01/20/21 mg tablet cyclobenzaprine 10 mg PO BID PRN #10 tab 01/28/21 naproxen 500 mg PO BID PRN #20 tab 01/28/21 tramadol 50 mg tablet 50 mg PO Q6H PRN #20 tab 02/03/21 Allergies Allergy/AdvReac Type Severity Reaction Status Date / Time egg [EGGS] Allergy Unknown ITCHY Verified 02/14/21 15:59 THROAT,SWELLING LIPS JANELL cooking spray Allergy Unknown swelling Uncoded 04/08/20 00:00 in mouth/tongue Review of Systems Review of Systems: Constitutional: No Fever, No Chills ENT/Mouth: No Ear Pain, No Hoarseness, No sore throat Eyes: No Eye Pain, No Swelling, No Redness, No Foreign Body Cardiovascular: No Chest Pain, No SOB Respiratory: No Cough, No Dyspnea Gastrointestinal: No Nausea, No Vomiting, No Diarrhea, No abdominal Pain Genitourinary: positive urinary incontinence, No Dysuria, No Hematuria Musculoskeletal: positive Lower back pain, positive sciatic, No Myalgias, No Joint Swelling Skin: No Skin lacerations, No rash Neuro: No Weakness, No Numbness, No Paresthesias, No Loss of Consciousness, No Dizziness, No Headache Psych: No Anxiety/Panic, No Depression Heme/Lymph: no easy bruising, no Lymphadenopathy Endocrine: No Polyuria, No Polydipsia Yes all other systems are reviewed and are negative [facility] Past Medical History Attestation statement: The following information was validated with the patient. Source: old records reviewed Medical History Anxiety Asthma Incisional hernia Incisional hernia Incisional pain Obesity Open wound anterior abdominal wall SBO (small bowel obstruction) Surgical History H/O hernia repair Status post Hattie's procedure Family History Family History Mother No problems noted. Father No problems noted. Maternal Grandfather History of prostate cancer Maternal Grandmother History of breast cancer Social History Social History Household Members: Spouse Housing: House Do you presently have visiting nurse or other home services: No Alcohol intake: former Second Hand Smoke Exposure: No Substance Use Type: Marijuana Advance Directives: No Advance Directives Information Provided: No service: No Current occupational status: disabled Physical Exam Vital Signs: Vital Signs: Last Vital Signs Temp 98.2 F 02/14/21 18:46 Pulse 69 02/14/21 18:46 Resp 18 02/14/21 18:46 BP 113/58 L 02/14/21 18:46 Pulse Ox 95 02/14/21 18:46 Body Mass Index 45.1 Appearance: Alert. Oriented X3. No acute distress. Head: Normal external exam. Normocephalic. Atraumatic. No Akmara signs noted. No raccoon eyes noted Eyes: PERRLA. EOMI. Conjunctiva and sclera normal. Eyelids normal. ENT: Pharynx normal. Uvula midline. Moist mucous membranes. Neck: Normal inspection. Neck supple. CVS: Normal heart rate and rhythm. Heart sound normal. No murmurs noted. Pulses equal to all extremities. Respiratory: No respiratory distress. Painless inspiration. Breath sounds normal. No wheezes/rales/rhonchi noted. Chest nontender. No accessory muscle usage noted or decreased air movement noted. Abdomen: Soft and nontender. Bowel sounds normal in all 4 quadrants. No distention noted. No organomegaly noted. No visible injury noted. Back: No CVA tenderness. Full range of motion noted. Skin: Skin warm and dry. Normal skin color. Normal skin turgor. No rashes/lesions/lacerations noted. Extremities: No lower extremity edema. Extremities exhibit normal range of motion. Extremities nontender. Neuro: cranial nerves 2-12 intact, no focal neural deficits, strength 5/5 to all extremities, No motor deficit. No sensory deficit. patellar Reflexes normal. Course Course Course Narrative: 50-year-old male presents with chronic lower back pain, disc herniation, and urinary incontinence for several months. He has been followed by Urology as well as Neurology. He is requesting the results of his MRI that was completed on 01/06/2021. we will do our best to try to obtain these records. At this time we will bladder scan, order urinalysis, CBC and Chem 7. 6:13 p.m. MRI obtained from Dr. Falk is office, plain films of the lumbar spine on 01/06/2021 impression 1. at L5-S1 there are bilateral L5 partes interarticularis defects. There is unroofing of the disc at this level and there are bilateral foraminal disc protrusions with compression of the exiting L5 nerve roots. There is no central stenosis. Two. At L4-L5 there is moderate facet arthropathy. There is a posterior disc protrusion -extrusion with narrowing of the subarticular recesses. There are bilateral foraminal disc pr otrusions with impingement on the exiting L4 nerve roots. There is no central stenosis. Three. L3-L4 there is facet arthropathy there is a posterior disc protrusion extending into the neural foramina with impingement on the exiting L3 nerve roots. There is mild central stenosis 4. Spondylosis and facet arthropathic changes also demonstrated at the other levels as described above. there is nothing found on this MRI that indicates a requirement of emergent intervention at this time. 6:16 p.m. urinalysis is still pending. 6:35 p.m. UTI negative. plan of care is to discharge home and have patient follow-up with Urology as well as Neurology. These have been chronic problems. Patient requested pain management which was declined by this [employer]. Patient verbalizes understanding of and agrees to plan of care discharge home. MDM - Back Pain/Injury Differential Diagnosis Differential diagnosis: Likely lumbar radiculopathy, sciatica, strain of lumbar region and thoracic back pain Medical Records Attestation: I reviewed the patient's medical records. Lab Data Attestation: I reviewed the patient's lab results. Result diagrams: 02/14/21 16:33 02/14/21 16:33 Labs: Lab Results 02/14/21 02/14/21 02/14/21 Range/Units 16:33 16:33 17:59 WBC 8.5 (4.8-10.8) X10*3/uL RBC 4.90 (4.60-5.80) X10*6/uL Hgb 14.2 (14.0-18.0) g/dl Hct 42.9 (42-52) % MCV 87.6 (80-98) fL MCH 29.0 (27.0-33.0) pg MCHC 33.1 (31.0-36.0) g/dl RDW 14.0 (11.0-16.0) % Plt Count 278 (160-400) X10*3/uL MPV 9.1 L (9.4-12.4) fL Immature Gran % (Auto) 1.1 H (0.0-0.4) % Neut % (Auto) 57.7 (45-73) % Lymph % (Auto) 25.9 (20-40) % [place] % (Auto) 10.4 (2-11) % Eos % (Auto) 4.7 H (0-4) % Baso % (Auto) 0.2 (0-2) % Lymph # (Auto) 2.2 (1.2-4.9) X10*3/uL [place] # (Auto) 0.9 (0.1-1.2) X10*3/uL Eos # (Auto) 0.4 (0.0-0.4) X10*3/uL Baso # (Auto) 0.0 (0.0-0.2) X10*3/uL Abs Immat Gran (auto) 0.09 H (0.00-0.03) X10*3/uL Absolute Neuts (auto) 4.9 (2.0-8.3) X10*3/uL Absolute Nucleated RBC 0.000 (0.0-0.012) X10*3/uL Nucleated RBC % (auto) 0.0 (0.0-0.2) /100WBC Sodium 139 (135-145) mmol/L Potassium 4.2 (3.3-5.1) mmol/L Chloride 106 (96-108) mmol/L Carbon Dioxide 25 (22-29) mmol/L Anion Gap 12 (12-20) BUN 19 H (9-16) mg/dL Creatinine 0.97 (0.5-1.4) mg/dL Estim Creat Clear Calc 136.9 Estimated GFR > 60 Random Glucose 92 (60-115) mg/dL Calcium 9.3 (8.4-10.2) mg/dL Urine Color YELLOW Urine Appearance CLEAR Urine pH 6.0 (5.0-8.0) Ur Specific [place] 1.025 (1.005-1.025) Urine Protein TRACE (NEG-TRACE) MG/DL Urine Glucose (UA) NEG (NEG) MG/DL Urine Ketones NEG (NEG) MG/DL Urine Blood NEG (NEG) Urine Nitrite NEG (NEG) Ur Leukocyte Esterase NEG (NEG) Discharge Plan Discharge Clinical Impression: Dysuria-frequency syndrome, Lumbar nerve root impingement Patient Disposition: Home, Self-Care Instructions: Dysuria (ED) Additional Instructions: you were evaluated for urinary symptoms related to your lumbar nerve root impingement. You must continue to follow-up with Your neurologist as well as urologist. urinalysis is negative. Your blood levels are negative. At this time, we will not be repeating any test as we have obtained your MRI results. We have given you a copy of your results At your request. Thank you for choosing this emergency department for evaluation. Please follow-up with primary care physician as needed. Return to the emergency department for any new, concerning, or worsening symptoms. Prescriptions: No Action oxycodone 5 mg tablet 5 mg PO Q4H PRN (Reason: pain) Qty: 25 RF: 0 oxycodone-acetaminophen [Percocet] 5-325 mg tablet 1 tab PO TID PRN (Reason: pain) Qty: 20 RF: 0 tamsulosin 0.4 mg capsule 0.4 mg PO BEDTIME 90 Days Qty: 90 RF: 1 oxycodone-acetaminophen [Percocet] 5-325 mg tablet 1 tab PO BID PRN (Reason: pain) Qty: 20 RF: 0 tramadol 50 mg tablet 50 mg PO Q6H PRN (Reason: pain) Qty: 20 RF: 0 levothyroxine 50 mcg Tablet 50 mcg PO DAILY RF: 0 docusate sodium [Colace] 100 mg Capsule 100 mg PO BID RF: 0 omeprazole 20 mg Capsule,Delayed Release(Dr/Ec) 20 mg PO DAILY RF: 0 montelukast [Singulair] 10 mg Tablet 10 mg PO BEDTIME RF: 0 loratadine 10 mg Tablet 10 mg PO DAILY RF: 0 escitalopram oxalate [Lexapro] 10 mg Tablet 10 mg PO DAILY RF: 0 albuterol sulfate 90 mcg/actuation Hfa Aerosol Inhaler 2 puff INHALATION Q4H PRN (Reason: ASTHMA) RF: 0 fluticasone propion-salmeterol [Wixela Inhub] 500-50 mcg/dose blister with device 1 puff inhalation BID RF: 0 hydrochlorothiazide 25 mg tablet 25 mg PO DAILY RF: 0 ipratropium bromide 0.03 % spray,non-aerosol 2 spray intranasal TID PRN (Reason: congestion) RF: 0 amoxicillin-pot clavulanate [Augmentin] 500-125 mg tablet 1 tab PO Q12H Qty: 10 RF: 0 amoxicillin-pot clavulanate [Augmentin] 875-125 mg tablet 1 tab PO Q12H 7 Days Qty: 14 RF: 0 naproxen 500 mg tablet 500 mg PO BID PRN (Reason: pain) Qty: 20 RF: 0 doxycycline monohydrate 100 mg capsule 100 mg PO BID 7 Days Qty: 14 RF: 0 ibuprofen 400 mg tablet 400 mg PO Q6H PRN (Reason: pain) Qty: 20 RF: 0 carisoprodol [Soma] 350 mg tablet 350 mg PO TID PRN (Reason: muscle pain) 3 Days Qty: 10 RF: 0 oxycodone-acetaminophen [Percocet] 5-325 mg tablet 1 tab PO Q6H PRN (Reason: pain) Qty: 10 RF: 0 naproxen 500 mg tablet 500 mg PO BID PRN (Reason: pain) Qty: 20 RF: 0 cyclobenzaprine 10 mg tablet 10 mg PO BID PRN (Reason: muscle spasm) Qty: 10 RF: 0 Interventions: ED Discharge Assessment Last Done: 02/14/21 18:53 Discharge Date/Time: 02/14/21 18:51
[2021-02-14 16:51] LABS: MANUAL DIFF FLAG NO
[2021-02-14 17:01] LABS: Basophils Percent Auto 0.2 % (0-2); Eosinophils Absolute Auto 0.4 X10*3/uL (0.0-0.4); Eosinophils Percent Auto 4.7 % (0-4); Hematocrit 42.9 % (42-52); Hemoglobin 14.2 g/dl (14.0-18.0); Imm Gran Abs Auto 0.09 X10*3/uL (0.00-0.03); Imm Gran Pct Auto 1.1 % (0.0-0.4); Lymphocytes Absolute Auto 2.2 X10*3/uL (1.2-4.9); Lymphocytes Percent Auto 25.9 % (20-40); Mean Corpuscular HGB Conc 33.1 g/dl (31.0-36.0); Mean Corpuscular Volume 87.6 fL (80-98); Mean Platelet Volume 9.1 fL (9.4-12.4); Monocytes Absolute Auto 0.9 X10*3/uL (0.1-1.2); Monocytes Percent Auto 10.4 % (2-11); Neutrophils Absolute Auto 4.9 X10*3/uL (2.0-8.3); Neutrophils Percent Auto 57.7 % (45-73); Platelet Count 278 X10*3/uL (160-400); White Blood Count 8.5 X10*3/uL (4.8-10.8)
[2021-02-14 17:21] LABS: Anion Gap 12 (12-20); Blood Urea Nitrogen 19 mg/dL (9-16); Calcium 9.3 mg/dL (8.4-10.2); Carbon Dioxide 25 mmol/L (22-29); Chloride 106 mmol/L (96-108); Creatinine Clr Calc Pharmacy 136.9; Estimated Glomerular Filt Rate > 60; Glucose Random 92 mg/dL (60-115); Potassium 4.2 mmol/L (3.3-5.1); Sodium 139 mmol/L (135-145)
[2021-02-14 18:09] LABS: Glucose Urine UA NEG (NEG); Leukocyte Esterase Urine NEG (NEG); Nitrite Urine NEG (NEG); Specific Gravity - Urine 1.025 (1.005-1.025); Urine Blood NEG (NEG); Urine Ketones NEG (NEG); Urine Protein TRACE MG/DL (NEG-TRACE)
[2021-02-14 18:17] LABS: Appearance Urine CLEAR; Color Urine YELLOW
[2021-02-14] MEDS: diazePAM 5 MG TABLET PO (18:24)
[2021-02-14] MEDS: Cyclobenzaprine HCl 10 MG TABLET PO (18:24)
[2021-02-14] MEDS: Ketorolac Tromethamine 30 MG/ML VIAL IVPUSH (18:24)
[2021-02-14 18:46] VITALS: BP 113/58; PULSE 69; RESP 18; TEMP 36.8; O2SAT 95
== END 2021-02-14 18:51 | disposition home or self-care (01) ==
PROVIDERS: Nurse Practitioner Family; Emergency Provider Emergency Medicine; PCP Internal Medicine Geriatric Medicine
DX: R30.0 Dysuria (principal); G54.4 Lumbosacral root disorders, not elsewhere classified; M54.5 Low back pain; E66.9 Obesity, unspecified
CPT/HCPCS: 36415; 80048; 81003; 85025; 96374; 99284; J1885

== ENCOUNTER 2021-04-25 14:24 | Emergency (ER) | payer OTHER, SELFPAY ==
--- NOTE | 2021-04-25 | ECG_ITS ---
Test Reason : PALPITATIONS Blood Pressure : / mmHG Vent. Rate : 076 BPM Atrial Rate : 076 BPM P-R Int : 168 ms QRS Dur : 096 ms QT Int : 366 ms P-R-T Axes : -10 -03 -09 degrees QTc Int : 411 ms Normal sinus rhythm Normal ECG When compared with ECG of 09-SEP-2019 16:38, No significant change was found Referred By: Generic ED Physician Electronically Signed By:TEE WING
[2021-04-25 14:39] VITALS: BP 116/86; PULSE 91; RESP 16; TEMP 36.8; O2SAT 98; BMI 46.4
[2021-04-25 14:57] LABS: MANUAL DIFF FLAG NO
[2021-04-25 15:01] LABS: Basophils Percent Auto 0.3 % (0-2); Eosinophils Absolute Auto 0.3 X10*3/uL (0.0-0.4); Eosinophils Percent Auto 2.6 % (0-4); Hematocrit 41.7 % (42-52); Hemoglobin 13.8 g/dl (14.0-18.0); Imm Gran Abs Auto 0.09 X10*3/uL (0.00-0.03); Imm Gran Pct Auto 0.8 % (0.0-0.4); Lymphocytes Absolute Auto 2.1 X10*3/uL (1.2-4.9); Lymphocytes Percent Auto 19.5 % (20-40); Mean Corpuscular HGB Conc 33.1 g/dl (31.0-36.0); Mean Corpuscular Hemoglobin 29.3 pg (27.0-33.0); Mean Corpuscular Volume 88.5 fL (80-98); Mean Platelet Volume 8.8 fL (9.4-12.4); Monocytes Absolute Auto 1.1 X10*3/uL (0.1-1.2); Monocytes Percent Auto 9.5 % (2-11); Neutrophils Absolute Auto 7.4 X10*3/uL (2.0-8.3); Neutrophils Percent Auto 67.3 % (45-73); Platelet Count 298 X10*3/uL (160-400); Red Blood Count 4.71 X10*6/uL (4.60-5.80); Red Cell Distribution Width 13.9 % (11.0-16.0)
[2021-04-25 15:18] LABS: Alanine Aminotransferase 19 U/L (0-40); Albumin Level 4.2 g/dL (3.5-5.0); Alkaline Phosphatase 92 U/L (39-117); Anion Gap 12 (12-20); Aspartate Amino Transferase 20 U/L (5-37); Bilirubin Total 0.5 mg/dL (0.0-1.0); Blood Urea Nitrogen 14 mg/dL (9-16); Calcium 9.6 mg/dL (8.4-10.2); Carbon Dioxide 26 mmol/L (22-29); Chloride 103 mmol/L (96-108); Creatinine Clr Calc Pharmacy 126.1; Estimated Glomerular Filt Rate > 60; Glucose Random 88 mg/dL (60-115); Potassium 3.8 mmol/L (3.3-5.1); Sodium 137 mmol/L (135-145); Total Protein 7.5 g/dL (6.5-8.0)
--- NOTE | 2021-04-25 18:26 | ED.HA ---
HPI - Headache General Chief Complaint: Headache Stated Complaint: PALPATATIONS HIGH BP BLURRED VISSION Time Seen by Provider: 04/25/21 18:11 Source: patient Mode of arrival: ambulatory Limitations: no limitations History of Present Illness HPI Narrative: 50-year-old male with a past medical history of anxiety, hypothyroidism, hypertension here with complaints of headache, photophobia, intermittent blurry vision, chest discomfort and palpitations for about 24 hours. Patient tells me that his uncle yesterday and after this occurred his symptoms began. He feels like his blood pressure might be elevated and that is why he came into the emergency department. His lisinopril was recently discontinued due to a cough and he has not been started on a new blood pressure medication. He denies any shortness of breath, cough, nausea, vomiting, dizziness. Feeling anxious. No depression or suicidal thoughts Related Data Home Medications Medication Instructions Recorded Confirmed albuterol sulfate 90 mcg/actuation 2 puff INHALATION Q4H PRN 05/11/20 02/02/21 aerosol inhaler docusate sodium 100 mg capsule 100 mg PO BID 05/11/20 02/02/21 (Colace) escitalopram oxalate 10 mg tablet 10 mg PO DAILY 05/11/20 02/02/21 (Lexapro) levothyroxine 50 mcg tablet 50 mcg PO DAILY 05/11/20 02/02/21 loratadine 10 mg tablet 10 mg PO DAILY 05/11/20 02/02/21 montelukast 10 mg tablet 10 mg PO BEDTIME 05/11/20 02/02/21 (Singulair) omeprazole 20 mg capsule,delayed 20 mg PO DAILY 05/11/20 02/02/21 release fluticasone 500 mcg-salmeterol 50 1 puff INHALATION BID 05/25/20 02/02/21 mcg/dose blistr powdr for inhalation (Tyeshaxschuyler Inhub) hydrochlorothiazide 25 mg tablet 25 mg PO DAILY 05/25/20 02/02/21 ipratropium bromide 21 mcg (0.03 2 spray INTRANASAL TID PRN 05/25/20 02/02/21 %) nasal spray Previous Rx's Medication Instructions Recorded amoxicillin 500 mg-potassium 1 tab PO Q12H #10 tab 05/27/20 clavulanate 125 mg tablet (Augmentin) amoxicillin 875 mg-potassium 1 tab PO Q12H 7 Days #14 tab 06/17/20 clavulanate 125 mg tablet (Augmentin) oxycodone 5 mg tablet 5 mg PO Q4H PRN #25 tab 07/05/20 naproxen 500 mg tablet 500 mg PO BID PRN #20 tab 11/01/20 doxycycline monohydrate 100 mg 100 mg PO BID 7 Days #14 cap 11/13/20 capsule oxycodone-acetaminophen 5 mg-325 1 tab PO TID PRN #20 tab 11/22/20 mg tablet (Percocet) tamsulosin 0.4 mg capsule 0.4 mg PO BEDTIME 90 Days #90 cap 12/27/20 carisoprodol 350 mg tablet (Soma) 350 mg PO TID PRN 3 Days #10 tab 01/06/21 ibuprofen 400 mg tablet 400 mg PO Q6H PRN #20 tab 01/06/21 oxycodone-acetaminophen 5 mg-325 1 tab PO Q6H PRN #10 tab 01/06/21 mg tablet (Percocet) oxycodone-acetaminophen 5 mg-325 1 tab PO BID PRN #20 tab 01/20/21 mg tablet (Percocet) cyclobenzaprine 10 mg tablet 10 mg PO BID PRN #10 tab 01/28/21 naproxen 500 mg tablet 500 mg PO BID PRN #20 tab 01/28/21 tramadol 50 mg tablet 50 mg PO Q6H PRN #20 tab 02/03/21 oxycodone-acetaminophen 5 mg-325 1 tab PO TID PRN #20 tab 03/17/21 mg tablet (Percocet) lfngrbpxue-jnqjhtdjmvqpw-jwcqlhby 1 cap PO Q6H PRN #10 cap 04/25/21 50 mg-300 mg-40 mg capsule (Fioricet) Allergies Allergy/AdvReac Type Severity Reaction Status Date / Time egg [EGGS] Allergy Unknown ITCHY Verified 02/14/21 15:59 THROAT,SWELLING LIPS JANELL cooking spray Allergy Unknown swelling Uncoded 04/08/20 00:00 in mouth/tongue Review of Systems Review of Systems: Yes all other systems are reviewed and are negative Constitutional: Constitutional: Reports no additional constitutional complaints, Denies body ache(s), Denies chills, Denies fever(s), Reports headache(s) and Denies weakness Eyes: Eyes: Reports no additional eye complaints, Denies change in vision and Reports photophobia Comments: Intermittent blurry vision ENT: Reports system reviewed and no additional complaints, except as documented, Denies dizziness, Reports headache(s), Denies nasal congestion, Denies nasal discharge and Denies neck pain Cardiovascular: Cardiovascular: Reports no additional cardiovascular complaints, Reports chest pain, Denies leg edema, Reports palpitations and Denies dyspnea Respiratory: Respiratory: Reports no additional respiratory complaints, Denies cough and Denies dyspnea Gastrointestinal: Gastrointestinal: Reports no additional gastrointestinal complaints, Denies abdominal pain, Denies diarrhea, Denies nausea and Denies vomiting Genitourinary: Genitourinary: Denies urinary incontinence Musculoskeletal: Musculoskeletal: Reports no additional musculoskeletal complaints, Denies back pain, Denies arthralgias, Denies joint swelling, Denies neck pain, Denies numbness and Denies tingling Integumentary/Breasts: Skin/Breast: Reports system reviewed and no additional complaints, except as docu and Denies rash Neurologic: Reports system reviewed and no additional complaints, except as documented, Denies Abnormal speech present, Denies dizziness, Reports headache(s), Denies numbness, Denies tingling and Denies weakness Endocrine: Endocrine: Reports palpitations PMFSH Past Medical History Attestation statement: The following information was validated with the patient. Source: old records reviewed and nursing notes reviewed Medical History Anxiety Asthma Incisional hernia Incisional hernia Incisional pain Obesity Open wound anterior abdominal wall SBO (small bowel obstruction) Surgical History H/O hernia repair Status post Hattie's procedure Family History Family History Mother No problems noted. Father No problems noted. Maternal Grandfather History of prostate cancer Maternal Grandmother History of breast cancer Social History Social History Household Members: Spouse Housing: House Do you presently have visiting nurse or other home services: No Alcohol intake: former Second Hand Smoke Exposure: No Substance Use Type: Marijuana Advance Directives: No Advance Directives Information Provided: Yes service: No Current occupational status: disabled Physical Exam Vital Signs: Vital Signs: Last Vital Signs Temp 99.4 F 04/25/21 19:26 Pulse 74 04/25/21 19:26 Resp 15 04/25/21 19:26 BP 105/56 L 04/25/21 19:26 Pulse Ox 95 04/25/21 19:26 Body Mass Index 46.4 Const: General: cooperative, healthy appearing, comfortable and no acute distress Orientation/consciousness: patient oriented x3 Limitations: no limitations HENMT: Head: Yes normal to inspection Ears: hearing grossly normal bilaterally General nose exam: Normal external nose present Face and sinus: Yes normal facial exam Mouth: Normal oral and palatal mucosa present Throat: Yes posterior oropharynx normal Eyes: General: appearance normal, both eyes and all related structures Pupils: Equal, round and reactive pupils present Direct Ophthalmoscopy: photophobia Neck: Neck: Yes normal visual inspection Chest: Chest palpation & inspection: normal inspection of the chest Resp: Effort & Inspection: normal respiratory effort Auscultation: clear to auscultation bilaterally Cardio: Rate: regular rate Rhythm: regular rhythm Peripheral pulses: Peripheral pulses 2+ throughout GI: Inspection: Yes normal to inspection Palpation (GI): Soft to palpation and nontender Auscultation: normal bowel sounds Back/Spine/Pelvis: Thoracic/Lumbar Spine: thoracic and lumbar spine normal to inspection Skin: General skin exam: no rashes or lesions noted Neuro: General: patient oriented x3, no focal motor deficits and normal sensation to monofilament Cranial nerves: Yes CN's II-XII intact bilaterally, Yes Equal, round and reactive pupils present, Yes Bilaterally intact EOM present, Yes Nystagmus not present, Yes Normal facial strength present and Yes Midline tongue present Cognition (Neuro): normal cognition Speech: No Abnormal speech present Gait exam (Neuro): Normal gait present Motor exam (neuro): 5/5 motor strength present throughout Sensory Exam: Normal double simultaneous stimulation for sensation Coordination: oxuair-do-mhew test normal, kghx-pt-[id number] test normal and tandem gait normal Extrem: General: Yes normal to inspection, Yes no pedal edema and Yes no calf tenderness Course Course Course Narrative: 50-year-old male here with complaints of 24 hours of headache, photophobia, intermittent blurred vision, palpitations and chest discomfort after hearing that his uncle . He felt like his blood pressure was elevated and this is why he came into the emergency department. He did have some recent changes in his blood pressure medications from his primary care doctor. Normal neuro exam. Blood pressure is 116/86. Hemodynamically stable. Will check labs, EKG. Will give p.o. Fioricet and reassess 194-labs unremarkable. EKG shows no ischemic changes. Pain is almost resolved after 2 Fioricet. Likely tension migraine with multiple stressors at home. Blood pressures remain stable. I discussed the patient can follow-up with his primary care doctor in regards to this. Reviewed worrisome signs and symptoms of when to return to the emergency department. Comfortable discharge home. MDM - Headache MDM Narrative Medical decision making narrative: Less likely sah with gradual onset. Improved with Fioricet Differential Diagnosis Differential diagnosis: Likely migraine, tension headache and subarachnoid hemorrhage Medical Records Attestation: I reviewed the patient's medical records. Lab Data Attestation: I reviewed the patient's lab results. Result diagrams: 04/25/21 14:45 04/25/21 14:45 Labs: Lab Results 04/25/21 04/25/21 04/25/21 Range/Units 14:45 14:45 18:37 WBC 11.0 H (4.8-10.8) X10*3/uL RBC 4.71 (4.60-5.80) X10*6/uL Hgb 13.8 L (14.0-18.0) g/dl Hct 41.7 L (42-52) % MCV 88.5 (80-98) fL MCH 29.3 (27.0-33.0) pg MCHC 33.1 (31.0-36.0) g/dl RDW 13.9 (11.0-16.0) % Plt Count 298 (160-400) X10*3/uL MPV 8.8 L (9.4-12.4) fL Immature Gran % (Auto) 0.8 H (0.0-0.4) % Neut % (Auto) 67.3 (45-73) % Lymph % (Auto) 19.5 L (20-40) % Barton % (Auto) 9.5 (2-11) % Eos % (Auto) 2.6 (0-4) % Baso % (Auto) 0.3 (0-2) % Lymph # (Auto) 2.1 (1.2-4.9) X10*3/uL Barton # (Auto) 1.1 (0.1-1.2) X10*3/uL Eos # (Auto) 0.3 (0.0-0.4) X10*3/uL Baso # (Auto) 0.0 (0.0-0.2) X10*3/uL Abs Immat Gran (auto) 0.09 H (0.00-0.03) X10*3/uL Absolute Neuts (auto) 7.4 (2.0-8.3) X10*3/uL Absolute Nucleated RBC 0.000 (0.0-0.012) X10*3/uL Nucleated RBC % (auto) 0.0 (0.0-0.2) /100WBC Sodium 137 (135-145) mmol/L Potassium 3.8 (3.3-5.1) mmol/L Chloride 103 (96-108) mmol/L Carbon Dioxide 26 (22-29) mmol/L Anion Gap 12 (12-20) BUN 14 (9-16) mg/dL Creatinine 1.07 (0.5-1.4) mg/dL Estim Creat Clear Calc 126.1 Estimated GFR > 60 Random Glucose 88 (60-115) mg/dL Calcium 9.6 (8.4-10.2) mg/dL Total Bilirubin 0.5 (0.0-1.0) mg/dL Direct Bilirubin < 0.2 (0.0-0.5) mg/dL AST 20 (5-37) U/L ALT 19 (0-40) U/L Alkaline Phosphatase 92 D (39-117) U/L Troponin I High Sens 4.0 (<3.5-35.0) ng/L Total Protein 7.5 (6.5-8.0) g/dL Albumin 4.2 (3.5-5.0) g/dL Discharge Plan Discharge Clinical Impression: Tension headache Patient Disposition: Home, Self-Care Instructions: Tension Headache (ED) Additional Instructions: Increase fluids, rest Follow-up with your primary care doctor to discuss your chronic medical problems and your medications Prescriptions: New fjnocwhusb-ltjqweujnbfxx-eaom [Fioricet] 50-300-40 mg capsule 1 cap PO Q6H PRN (Reason: pain) Qty: 10 RF: 0 No Action oxycodone 5 mg tablet 5 mg PO Q4H PRN (Reason: pain) Qty: 25 RF: 0 oxycodone-acetaminophen [Percocet] 5-325 mg tablet 1 tab PO TID PRN (Reason: pain) Qty: 20 RF: 0 tamsulosin 0.4 mg capsule 0.4 mg PO BEDTIME 90 Days Qty: 90 RF: 1 oxycodone-acetaminophen [Percocet] 5-325 mg tablet 1 tab PO BID PRN (Reason: pain) Qty: 20 RF: 0 tramadol 50 mg tablet 50 mg PO Q6H PRN (Reason: pain) Qty: 20 RF: 0 oxycodone-acetaminophen [Percocet] 5-325 mg tablet 1 tab PO TID PRN (Reason: pain) Qty: 20 RF: 0 levothyroxine 50 mcg Tablet 50 mcg PO DAILY RF: 0 docusate sodium [Colace] 100 mg Capsule 100 mg PO BID RF: 0 omeprazole 20 mg Capsule,Delayed Release(Dr/Ec) 20 mg PO DAILY RF: 0 montelukast [Singulair] 10 mg Tablet 10 mg PO BEDTIME RF: 0 loratadine 10 mg Tablet 10 mg PO DAILY RF: 0 escitalopram oxalate [Lexapro] 10 mg Tablet 10 mg PO DAILY RF: 0 albuterol sulfate 90 mcg/actuation Hfa Aerosol Inhaler 2 puff INHALATION Q4H PRN (Reason: ASTHMA) RF: 0 fluticasone propion-salmeterol [Wixela Inhub] 500-50 mcg/dose blister with device 1 puff inhalation BID RF: 0 hydrochlorothiazide 25 mg tablet 25 mg PO DAILY RF: 0 ipratropium bromide 0.03 % spray,non-aerosol 2 spray intranasal TID PRN (Reason: congestion) RF: 0 amoxicillin-pot clavulanate [Augmentin] 500-125 mg tablet 1 tab PO Q12H Qty: 10 RF: 0 amoxicillin-pot clavulanate [Augmentin] 875-125 mg tablet 1 tab PO Q12H 7 Days Qty: 14 RF: 0 naproxen 500 mg tablet 500 mg PO BID PRN (Reason: pain) Qty: 20 RF: 0 doxycycline monohydrate 100 mg capsule 100 mg PO BID 7 Days Qty: 14 RF: 0 ibuprofen 400 mg tablet 400 mg PO Q6H PRN (Reason: pain) Qty: 20 RF: 0 carisoprodol [Soma] 350 mg tablet 350 mg PO TID PRN (Reason: muscle pain) 3 Days Qty: 10 RF: 0 oxycodone-acetaminophen [Percocet] 5-325 mg tablet 1 tab PO Q6H PRN (Reason: pain) Qty: 10 RF: 0 naproxen 500 mg tablet 500 mg PO BID PRN (Reason: pain) Qty: 20 RF: 0 cyclobenzaprine 10 mg tablet 10 mg PO BID PRN (Reason: muscle spasm) Qty: 10 RF: 0 Referrals: Jamey Haq MD [Primary Care Provider] - 2 days Interventions: ED Discharge Assessment Last Done: 04/25/21 20:19 Discharge Date/Time: 04/25/21 20:20
[2021-04-25] MEDS: Butalb/Acetamin/Caff 50/325/40 TABLET 2 TAB PO (18:42)
[2021-04-25 18:50] LABS: Bilirubin Direct < 0.2 mg/dL (0.0-0.5)
[2021-04-25 19:26] VITALS: BP 105/56; PULSE 74; RESP 15; TEMP 37.4; O2SAT 95
== END 2021-04-25 20:20 | disposition home or self-care (01) ==
PROVIDERS: Nurse Practitioner Family; Emergency Provider Emergency Medicine Emergency Medical Services; PCP Internal Medicine
DX: G44.209 Tension-type headache, unspecified, not intractable (principal); R00.2 Palpitations; I10 Essential (primary) hypertension; H53.8 Other visual disturbances; Z79.899 Other long term (current) drug therapy; Z87.891 Personal history of nicotine dependence
CPT/HCPCS: 36415; 80053; 82248; 84484; 85025; 93005; 99283; 99284

== ENCOUNTER 2021-05-18 16:46 | Emergency (ER) | payer OTHER, SELFPAY ==
--- NOTE | ~2021-05-18 | CT_ITS ---
EXAMINATION: CT ABDOMEN AND PELVIS WITH CONTRAST CLINICAL INFORMATION: LLQ pain, hx colectomy, mesh repair COMPARISON: CT abdomen pelvis November 01, 2020 TECHNIQUE: Multidetector volumetric images were obtained from the superior aspect of the liver through the pubic symphysis following administration 85 mL of Omnipaque 350 intravenous contrast. Sagittal and coronal reformatted images were obtained on the technologist's workstation. Oral contrast: No This CT examination was performed using dose optimization techniques as appropriate, variously including the following: *Automated exposure control *Adjustment of mA and/or kV according to patient size (this includes techniques or standardized protocols for targeted exams where dose is matched to indication/reason for exam; i.e. extremities or head) *Use of iterative reconstruction technique DLP: 1148 mGy-cm FINDINGS: LUNG BASES: The visualized lung bases are unremarkable. LIVER, GALLBLADDER, AND BILIARY TREE: The liver is normal in size, shape, and attenuation. No focal hepatic lesion or biliary ductal dilatation is present. The gallbladder is unremarkable with no evidence of radiopaque gallstones, gallbladder wall thickening, or obvious pericholecystic inflammatory changes. PANCREAS: Unremarkable. SPLEEN: Unremarkable. ADRENAL GLANDS: Unremarkable. KIDNEYS AND URETERS: The kidneys are normal in size, shape, and attenuation. No hydronephrosis, hydroureter, or calculi seen. No perinephric stranding. BLADDER: Unremarkable. GASTROINTESTINAL/ABDOMINAL WALL: There is unchanged rectus diastases with bulge of the midline fascia at the midline. Small periumbilical fat-containing hernia. There is a left lateral abdominal wall hernia containing nonobstructive loops of small bowel. On prior CAT scan November 01, 2020 this region also had inflammatory changes. The inflammatory changes have significantly improved. There is a persistent small low attenuating fluid collection. The edematous stranding seen in this area has resolved. Surgical suture line intact at the sigmoid colon. There our scattered diverticula of the colon but no diverticulitis. Moderate volume of stool in the colon. The appendix is normal. LYMPH NODES: Normal. VASCULAR: Unremarkable. PELVIC VISCERA: Unremarkable. OSSEOUS STRUCTURES: Multilevel degenerative spondylosis spine. Grade 1 anterolisthesis of L5 on S1 with bilateral spondylolysis L5 pars interarticularis. CT/CT abdomen pelvis w con IMPRESSION: 1. Persistent left-sided abdominal wall hernia containing nonobstructive small bowel loops. There is been interval resolution of the previously seen surrounding inflammatory changes since prior CAT scan November 01, 2020. Small residual fluid collection remains. 2. Persistent diastases of the midline abdominal wall with bulge of the facet unchanged since prior study.
[2021-05-18 17:38] VITALS: BP 128/75; PULSE 73; RESP 18; TEMP 36.9; O2SAT 96; BMI 46.0
[2021-05-18 17:58] LABS: Appearance Urine CLEAR; Color Urine YELLOW; Glucose Urine UA NEG (NEG); Leukocyte Esterase Urine TRACE (NEG); Nitrite Urine NEG (NEG); Specific Gravity - Urine 1.015 (1.005-1.025); UACC Culture Trigger YES; Urine Blood NEG (NEG); Urine Ketones NEG (NEG); Urine Protein NEG (NEG-TRACE)
[2021-05-18 18:08] LABS: Mucus Urine 1+ /LPF
[2021-05-18 18:09] LABS: RBC Urine 0-2 /HPF (0); Squamous Epithelial Cell Urine TRACE /LPF
[2021-05-18 19:04] LABS: MANUAL DIFF FLAG NO
[2021-05-18 19:05] LABS: Basophils Percent Auto 0.3 % (0-2); Eosinophils Absolute Auto 0.3 X10*3/uL (0.0-0.4); Eosinophils Percent Auto 3.7 % (0-4); Hematocrit 41.9 % (42-52); Hemoglobin 14.1 g/dl (14.0-18.0); Imm Gran Abs Auto 0.06 X10*3/uL (0.00-0.03); Imm Gran Pct Auto 0.7 % (0.0-0.4); Lymphocytes Absolute Auto 2.5 X10*3/uL (1.2-4.9); Lymphocytes Percent Auto 26.8 % (20-40); Mean Corpuscular HGB Conc 33.7 g/dl (31.0-36.0); Mean Corpuscular Hemoglobin 29.4 pg (27.0-33.0); Mean Corpuscular Volume 87.5 fL (80-98); Mean Platelet Volume 8.7 fL (9.4-12.4); Monocytes Absolute Auto 0.8 X10*3/uL (0.1-1.2); Monocytes Percent Auto 8.7 % (2-11); Neutrophils Absolute Auto 5.5 X10*3/uL (2.0-8.3); Neutrophils Percent Auto 59.8 % (45-73); Platelet Count 276 X10*3/uL (160-400); Red Blood Count 4.79 X10*6/uL (4.60-5.80); Red Cell Distribution Width 13.9 % (11.0-16.0); White Blood Count 9.2 X10*3/uL (4.8-10.8)
[2021-05-18 19:27] LABS: Alanine Aminotransferase 27 U/L (0-40); Alkaline Phosphatase 87 U/L (39-117); Anion Gap 14 (12-20); Aspartate Amino Transferase 23 U/L (5-37); Bilirubin Total 0.3 mg/dL (0.0-1.0); Blood Urea Nitrogen 14 mg/dL (9-16); Calcium 9.3 mg/dL (8.4-10.2); Carbon Dioxide 27 mmol/L (22-29); Chloride 103 mmol/L (96-108); Creatinine Clr Calc Pharmacy 126.6; Estimated Glomerular Filt Rate > 60; Glucose Random 92 mg/dL (60-115); Potassium 3.9 mmol/L (3.3-5.1); Sodium 140 mmol/L (135-145); Total Protein 7.6 g/dL (6.5-8.0)
[2021-05-18] MEDS: Morphine Sulfate 4 MG/ML CARTRIDGE IVPUSH (22:15)
[2021-05-18 22:17] VITALS: RESP 18
--- NOTE | 2021-05-18 22:24 | ED_ITS ---
HPI - Abdominal Pain General Chief Complaint: Abdominal Pain Stated Complaint: abd pain Time Seen by Provider: 05/18/21 21:34 Source: patient Mode of arrival: ambulatory Limitations: no limitations History of Present Illness HPI narrative: Patient comes emergency room complaining of abdominal pain, worse in the left lower quadrant. Patient states that he has history of small-bowel obstruction, history of incisional hernia repair, history of reversed colostomy. Patient states that the pain he is feeling is similar to the small a bowel obstruction he experience a year ago. Patient denies vomiting or diarrhea, patient is still able to pass gas. Patient denies dysuria, no fever chills. Related Data Home Medications Medication Instructions Recorded Confirmed albuterol sulfate 90 mcg/actuation 2 puff INHALATION Q4H PRN 05/11/20 02/02/21 aerosol inhaler docusate sodium 100 mg capsule 100 mg PO BID 05/11/20 02/02/21 (Colace) escitalopram oxalate 10 mg tablet 10 mg PO DAILY 05/11/20 02/02/21 (Lexapro) levothyroxine 50 mcg tablet 50 mcg PO DAILY 05/11/20 02/02/21 loratadine 10 mg tablet 10 mg PO DAILY 05/11/20 02/02/21 montelukast 10 mg tablet 10 mg PO BEDTIME 05/11/20 02/02/21 (Singulair) omeprazole 20 mg capsule,delayed 20 mg PO DAILY 05/11/20 02/02/21 release fluticasone 500 mcg-salmeterol 50 1 puff INHALATION BID 05/25/20 02/02/21 mcg/dose blistr powdr for inhalation (Farzana Sánchez) hydrochlorothiazide 25 mg tablet 25 mg PO DAILY 05/25/20 02/02/21 ipratropium bromide 21 mcg (0.03 2 spray INTRANASAL TID PRN 05/25/20 02/02/21 %) nasal spray Previous Rx's Medication Instructions Recorded amoxicillin 500 mg-potassium 1 tab PO Q12H #10 tab 05/27/20 clavulanate 125 mg tablet (Augmentin) amoxicillin 875 mg-potassium 1 tab PO Q12H 7 Days #14 tab 06/17/20 clavulanate 125 mg tablet (Augmentin) oxycodone 5 mg tablet 5 mg PO Q4H PRN #25 tab 07/05/20 naproxen 500 mg tablet 500 mg PO BID PRN #20 tab 11/01/20 doxycycline monohydrate 100 mg 100 mg PO BID 7 Days #14 cap 11/13/20 capsule oxycodone-acetaminophen 5 mg-325 1 tab PO TID PRN #20 tab 11/22/20 mg tablet (Percocet) tamsulosin 0.4 mg capsule 0.4 mg PO BEDTIME 90 Days #90 cap 12/27/20 carisoprodol 350 mg tablet (Soma) 350 mg PO TID PRN 3 Days #10 tab 01/06/21 ibuprofen 400 mg tablet 400 mg PO Q6H PRN #20 tab 01/06/21 oxycodone-acetaminophen 5 mg-325 1 tab PO Q6H PRN #10 tab 01/06/21 mg tablet (Percocet) oxycodone-acetaminophen 5 mg-325 1 tab PO BID PRN #20 tab 01/20/21 mg tablet (Percocet) cyclobenzaprine 10 mg tablet 10 mg PO BID PRN #10 tab 01/28/21 naproxen 500 mg tablet 500 mg PO BID PRN #20 tab 01/28/21 tramadol 50 mg tablet 50 mg PO Q6H PRN #20 tab 02/03/21 oxycodone-acetaminophen 5 mg-325 1 tab PO TID PRN #20 tab 03/17/21 mg tablet (Percocet) mbnodhqpgz-plmzvuerkygwu-wkilnicm 1 cap PO Q6H PRN #10 cap 04/25/21 50 mg-300 mg-40 mg capsule (Fioricet) polyethylene glycol 3350 17 17 g PO BID #119 g 05/19/21 gram/dose oral powder (Miralax) tramadol 50 mg tablet 50 mg PO BID PRN #8 tab 05/19/21 Allergies Allergy/AdvReac Type Severity Reaction Status Date / Time egg [EGGS] Allergy Unknown ITCHY Verified 05/18/21 17:37 THROAT,SWELLING LIPS JANELL cooking spray Allergy Unknown swelling Uncoded 04/08/20 00:00 in mouth/tongue Review of Systems Review of Systems Constitutional : No Weight loss, No Fever, No Chills, No Night Sweats, No Fatigue, No Malaise ENT/Mouth : No Hearing loss, No Ear Pain, No Nasal Congestion, No Sinus Pain, No Hoarseness, No sore throat, No Rhinorrhea, No Swallowing Difficulty Eyes: No Eye Pain, No Swelling, No Redness, No Foreign Body, No Discharge, No Vision Changes Cardiovascular : No Chest Pain, No SOB, No Dyspnea on Exertion, No Orthopnea, No Edema, No Palpitations Respiratory : No Cough, No Sputum, No Wheezing, No Smoke Exposure, No Dyspnea Gastrointestinal : No Nausea, No Vomiting, No Diarrhea, complaining of left lower quadrant pain Genitourinary : no irregular bleeding, No Dysuria, No Urinary Frequency, No Hematuria, No Urinary Incontinence, No Urgency, No Flank Pain, No Urinary Flow Changes, No Hesitancy Musculoskeletal : No joint pain, No Myalgias, No Joint Swelling Skin : No Skin Lesions, No rash Neuro : No Weakness, No Numbness, No Paresthesias, No Loss of Consciousness, No Dizziness, No Headache Psych : No Anxiety/Panic, No Depression, No SI/HI/AH/VH, No Social Issues, Heme/Lymph: No Bruising, No Bleeding,No Lymphadenopathy Endocrine : No Polyuria, No Polydipsia, No Temperature Intolerance Physical Exam Vital Signs: Vital Signs: Last Vital Signs Temp 98.4 F 05/18/21 17:38 Pulse 66 05/18/21 23:13 Resp 20 05/18/21 23:13 BP 114/40 L 05/18/21 23:13 Pulse Ox 97 05/18/21 23:13 Body Mass Index 46.0 Const: Other: Appearance: Alert. Oriented X3. No acute distress. Eyes: Pupils equal, round and reactive to light. ENT: Pharynx normal. Neck: Normal inspection. Neck supple. No lymph nodes noted. No crepitus CVS: Normal heart rate and rhythm. Pulses normal. Normal S1 and S2 Respiratory: No respiratory distress. Breath sounds normal. No Wheezing. No rales Abdomen: Soft , pain to palpation in left lower quadrant and suprapubic area. No guarding, no rebound, No rigidity. No distention Skin: Skin warm and dry. Normal skin color. Normal skin turgor. Extremities: No lower extremity edema. No lower extremity edema. No Lacerations. No Rash Neuro: Oriented X 3. No motor deficit. No sensory deficit. Moving all extermities. No slurred speech. Course Course Course Narrative: Overall, patient is doing much better, still has abdominal pain but improved. I discussed the labs and imaging with the patient, no acute process. Patient will follow-up with Dr. Nowak [facility] - Abdominal Pain Lab Data Result diagrams: 05/18/21 19:00 05/18/21 19:00 Labs: Lab Results 05/18/21 05/18/21 05/18/21 Range/Units 17:50 19:00 19:00 WBC 9.2 (4.8-10.8) X10*3/uL RBC 4.79 (4.60-5.80) X10*6/uL Hgb 14.1 (14.0-18.0) g/dl Hct 41.9 L (42-52) % MCV 87.5 (80-98) fL MCH 29.4 (27.0-33.0) pg MCHC 33.7 (31.0-36.0) g/dl RDW 13.9 (11.0-16.0) % Plt Count 276 (160-400) X10*3/uL MPV 8.7 L (9.4-12.4) fL Immature Gran % (Auto) 0.7 H (0.0-0.4) % Neut % (Auto) 59.8 (45-73) % Lymph % (Auto) 26.8 (20-40) % [place]mers % (Auto) 8.7 (2-11) % Eos % (Auto) 3.7 (0-4) % Baso % (Auto) 0.3 (0-2) % Lymph # (Auto) 2.5 (1.2-4.9) X10*3/uL Summers # (Auto) 0.8 (0.1-1.2) X10*3/uL Eos # (Auto) 0.3 (0.0-0.4) X10*3/uL Baso # (Auto) 0.0 (0.0-0.2) X10*3/uL Abs Immat Gran (auto) 0.06 H (0.00-0.03) X10*3/uL Absolute Neuts (auto) 5.5 (2.0-8.3) X10*3/uL Absolute Nucleated RBC 0.000 (0.0-0.012) X10*3/uL Nucleated RBC % (auto) 0.0 (0.0-0.2) /100WBC Sodium 140 (135-145) mmol/L Potassium 3.9 (3.3-5.1) mmol/L Chloride 103 (96-108) mmol/L Carbon Dioxide 27 (22-29) mmol/L Anion Gap 14 (12-20) BUN 14 (9-16) mg/dL Creatinine 1.06 (0.5-1.4) mg/dL Estim Creat Clear Calc 126.6 Estimated GFR > 60 Random Glucose 92 (60-115) mg/dL Calcium 9.3 (8.4-10.2) mg/dL Total Bilirubin 0.3 (0.0-1.0) mg/dL AST 23 (5-37) U/L ALT 27 (0-40) U/L Alkaline Phosphatase 87 (39-117) U/L Total Protein 7.6 (6.5-8.0) g/dL Albumin 4.0 (3.5-5.0) g/dL Urine Color YELLOW Urine Appearance CLEAR Urine pH 7.0 (5.0-8.0) Ur Specific [place] 1.015 (1.005-1.025) Urine Protein NEG (NEG-TRACE) MG/DL Urine Glucose (UA) NEG (NEG) MG/DL Urine Ketones NEG (NEG) MG/DL Urine Blood NEG (NEG) Urine Nitrite NEG (NEG) Ur Leukocyte Esterase TRACE H (NEG) Urine RBC 0-2 (0) /HPF Urine WBC 1-4 (0-4) /HPF Ur Squamous Epith Cells TRACE /LPF Urine Bacteria NONE /LPF Urine Mucus 1+ /LPF Imaging Data CT scan - abdomen: Radiologist's impression: FINDINGS: LUNG BASES: The visualized lung bases are unremarkable.? LIVER, GALLBLADDER, AND BILIARY TREE: The liver is normal in size, shape, and attenuation. No focal hepatic lesion or biliary ductal dilatation is present. The gallbladder is unremarkable with no evidence of radiopaque gallstones, gallbladder wall thickening, or obvious pericholecystic inflammatory changes.? PANCREAS: Unremarkable.? SPLEEN: Unremarkable.? ADRENAL GLANDS: Unremarkable.? KIDNEYS AND URETERS: The kidneys are normal in size, shape, and attenuation. No hydronephrosis, hydroureter, or calculi seen. No perinephric stranding. ? BLADDER: Unremarkable.? GASTROINTESTINAL/ABDOMINAL WALL: There is unchanged rectus diastases with bulge of the midline fascia at the midline. Small periumbilical fat-containing hernia. There is a left lateral abdominal wall hernia containing nonobstructive loops of small bowel. On prior CAT scan November 01, 2020 this region also had inflammatory changes. The inflammatory changes have significantly improved. There is a persistent small low attenuating fluid collection. The edematous stranding seen in this area has resolved. Surgical suture line intact at the sigmoid colon. There our scattered diverticula of the colon but no diverticulitis. Moderate volume of stool in the colon. The appendix is normal. LYMPH NODES: Normal. VASCULAR: Unremarkable. PELVIC VISCERA: Unremarkable.? OSSEOUS STRUCTURES: Multilevel degenerative spondylosis spine. Grade 1 anterolisthesis of L5 on S1 with bilateral spondylolysis L5 pars interarticularis.? CT/CT abdomen pelvis w con IMPRESSION: ? 1. Persistent left-sided abdominal wall hernia containing nonobstructive small bowel loops. There is been interval resolution of the previously seen surrounding inflammatory changes since prior CAT scan November 01, 2020. Small residual fluid collection remains. 2. Persistent diastases of the midline abdominal wall with bulge of the facet unchanged since prior study.? Discharge Plan Discharge Clinical Impression: Abdominal pain Qualifiers: Abdominal location: left lower quadrant Qualified Code(s): R10.32 - Left lower quadrant pain Patient Disposition: Home, Self-Care Instructions: Abdominal Pain (ED) Additional Instructions: Please follow-up with your primary care physician tomorrow. If you have any worsening or new symptoms, please return to the emergency room or call 911 Prescriptions: New tramadol 50 mg tablet 50 mg PO BID PRN (Reason: pain) Qty: 8 RF: 0 polyethylene glycol 3350 [Miralax] 17 gram/dose powder 17 g PO BID Qty: 119 RF: 0 No Action oxycodone 5 mg tablet 5 mg PO Q4H PRN (Reason: pain) Qty: 25 RF: 0 oxycodone-acetaminophen [Percocet] 5-325 mg tablet 1 tab PO TID PRN (Reason: pain) Qty: 20 RF: 0 tamsulosin 0.4 mg capsule 0.4 mg PO BEDTIME 90 Days Qty: 90 RF: 1 oxycodone-acetaminophen [Percocet] 5-325 mg tablet 1 tab PO BID PRN (Reason: pain) Qty: 20 RF: 0 tramadol 50 mg tablet 50 mg PO Q6H PRN (Reason: pain) Qty: 20 RF: 0 oxycodone-acetaminophen [Percocet] 5-325 mg tablet 1 tab PO TID PRN (Reason: pain) Qty: 20 RF: 0 levothyroxine 50 mcg Tablet 50 mcg PO DAILY RF: 0 docusate sodium [Colace] 100 mg Capsule 100 mg PO BID RF: 0 omeprazole 20 mg Capsule,Delayed Release(Dr/Ec) 20 mg PO DAILY RF: 0 montelukast [Singulair] 10 mg Tablet 10 mg PO BEDTIME RF: 0 loratadine 10 mg Tablet 10 mg PO DAILY RF: 0 escitalopram oxalate [Lexapro] 10 mg Tablet 10 mg PO DAILY RF: 0 albuterol sulfate 90 mcg/actuation Hfa Aerosol Inhaler 2 puff INHALATION Q4H PRN (Reason: ASTHMA) RF: 0 fluticasone propion-salmeterol [Wixela Inhub] 500-50 mcg/dose blister with device 1 puff inhalation BID RF: 0 hydrochlorothiazide 25 mg tablet 25 mg PO DAILY RF: 0 ipratropium bromide 0.03 % spray,non-aerosol 2 spray intranasal TID PRN (Reason: congestion) RF: 0 amoxicillin-pot clavulanate [Augmentin] 500-125 mg tablet 1 tab PO Q12H Qty: 10 RF: 0 amoxicillin-pot clavulanate [Augmentin] 875-125 mg tablet 1 tab PO Q12H 7 Days Qty: 14 RF: 0 naproxen 500 mg tablet 500 mg PO BID PRN (Reason: pain) Qty: 20 RF: 0 ikqarbxofe-yefdjhtqzsszf-jugx [Fioricet] 50-300-40 mg capsule 1 cap PO Q6H PRN (Reason: pain) Qty: 10 RF: 0 doxycycline monohydrate 100 mg capsule 100 mg PO BID 7 Days Qty: 14 RF: 0 ibuprofen 400 mg tablet 400 mg PO Q6H PRN (Reason: pain) Qty: 20 RF: 0 carisoprodol [Soma] 350 mg tablet 350 mg PO TID PRN (Reason: muscle pain) 3 Days Qty: 10 RF: 0 oxycodone-acetaminophen [Percocet] 5-325 mg tablet 1 tab PO Q6H PRN (Reason: pain) Qty: 10 RF: 0 naproxen 500 mg tablet 500 mg PO BID PRN (Reason: pain) Qty: 20 RF: 0 cyclobenzaprine 10 mg tablet 10 mg PO BID PRN (Reason: muscle spasm) Qty: 10 RF: 0 PMFSH Past Medical History Medical History Anxiety Asthma Incisional hernia Incisional hernia Incisional pain Obesity Open wound anterior abdominal wall SBO (small bowel obstruction) Surgical History H/O hernia repair Status post Hattie's procedure Family History Family History Mother No problems noted. Father No problems noted. Maternal Grandfather History of prostate cancer Maternal Grandmother History of breast cancer Social History Social History Household Members: Spouse Housing: House Do you presently have visiting nurse or other home services: No Alcohol intake: never Patient Tobacco Use Status: Never used Tobacco Second Hand Smoke Exposure: No Use of substances other than those prescribed or required for medical reasons: No Substance Use Type: Marijuana Advance Directives: No Advance Directives Information Provided: No service: No Current occupational status: disabled
[2021-05-18] MEDS: iohexoL 350 MG/ML 100 ML INFUS..BTL IV (22:36)
[2021-05-18 23:13] VITALS: BP 114/40; PULSE 66; RESP 20; O2SAT 97
--- NOTE | 2021-05-18 23:16 | PC.NURSE ---
pt alert and oriented, skin appropriate for ethnicity, respirations even and unlabored. pt reports that is left lower abd pain is starting to come back, denies nausea, pain at 8/10
[2021-05-19] MEDS: Ketorolac Tromethamine 15 MG/ML VIAL 30 MG IVPUSH (00:07)
== END 2021-05-19 00:15 | disposition home or self-care (01) ==
PROVIDERS: Emergency Provider Emergency Medicine; PCP Internal Medicine
DX: R10.32 Left lower quadrant pain (principal); J45.909 Unspecified asthma, uncomplicated; Z79.899 Other long term (current) drug therapy
CPT/HCPCS: 36415; 74177; 80053; 81001; 85025; 87086; 96374; 96375; 99284; J1885; J2270; Q9967

== ENCOUNTER 2021-06-14 14:03 | Emergency (ER) | payer OTHER, SELFPAY ==
--- NOTE | ~2021-06-14 | XR_ITS ---
Indication: Fall EXAMINATION: Right knee, right elbow. 4 views of the right knee demonstrate moderate degenerative changes. There is a small effusion. No acute fracture or dislocation. 3 views of the right elbow demonstrate no effusion. There is degenerative change. No obvious fracture is seen. There is no dislocation. XR/XR elbow RT min 3V IMPRESSION: Findings suggest a right elbow effusion. Therefore fracture must be assumed given the history of trauma. Statistically this would be in the radial head in a patient of this age. There is mild degenerative change. Moderate degenerative change in the right knee with a small effusion. No fracture or dislocation here
--- NOTE | ~2021-06-14 | XR_ITS ---
Indication: Fall EXAMINATION: Right knee, right elbow. 4 views of the right knee demonstrate moderate degenerative changes. There is a small effusion. No acute fracture or dislocation. 3 views of the right elbow demonstrate no effusion. There is degenerative change. No obvious fracture is seen. There is no dislocation. XR/XR knee RT 4V IMPRESSION: Findings suggest a right elbow effusion. Therefore fracture must be assumed given the history of trauma. Statistically this would be in the radial head in a patient of this age. There is mild degenerative change. Moderate degenerative change in the right knee with a small effusion. No fracture or dislocation here
[2021-06-14 15:00] VITALS: BP 142/92; PULSE 69; RESP 18; TEMP 36.6; O2SAT 98; BMI 46.0
--- NOTE | 2021-06-14 16:22 | ED.GENADULT ---
HPI - General Adult General Chief complaint: Extremity Injury, Lower Stated complaint: fall - elbow & knee pain Time Seen by Provider: 06/14/21 16:20 Source: patient Mode of arrival: ambulatory Limitations: no limitations History of Present Illness HPI narrative: 50-year-old male with past medical history of obesity, knee arthritis, anxiety, hernia repair presents to ED for right knee pain and right elbow pain. Patient states yesterday while going up the stairs his right knee gave out which caused him to fall onto his right knee and then right elbow. Patient denies head hitting stairs or torso/body hitting stairs. Patient denies any loss of consciousness. Patient states history of knee issues was informed he may need knee replacement in the future. Patient denies any blood thinners. Patient states incident occurred last night. Patient states since then no chest pain no abdominal pain, headache, dizziness, neck pain, vomiting blood, rectal bleeding, or blood in urine. Related Data Home Medications Medication Instructions Recorded Confirmed albuterol sulfate 90 mcg/actuation 2 puff INHALATION Q4H PRN 05/11/20 02/02/21 aerosol inhaler docusate sodium 100 mg capsule 100 mg PO BID 05/11/20 02/02/21 (Colace) escitalopram oxalate 10 mg tablet 10 mg PO DAILY 05/11/20 02/02/21 (Lexapro) levothyroxine 50 mcg tablet 50 mcg PO DAILY 05/11/20 02/02/21 loratadine 10 mg tablet 10 mg PO DAILY 05/11/20 02/02/21 montelukast 10 mg tablet 10 mg PO BEDTIME 05/11/20 02/02/21 (Singulair) omeprazole 20 mg capsule,delayed 20 mg PO DAILY 05/11/20 02/02/21 release fluticasone 500 mcg-salmeterol 50 1 puff INHALATION BID 05/25/20 02/02/21 mcg/dose blistr powdr for inhalation (Farzana Sánchez) hydrochlorothiazide 25 mg tablet 25 mg PO DAILY 05/25/20 02/02/21 ipratropium bromide 21 mcg (0.03 2 spray INTRANASAL TID PRN 05/25/20 02/02/21 %) nasal spray Previous Rx's Medication Instructions Recorded amoxicillin 500 mg-potassium 1 tab PO Q12H #10 tab 05/27/20 clavulanate 125 mg tablet (Augmentin) amoxicillin 875 mg-potassium 1 tab PO Q12H 7 Days #14 tab 06/17/20 clavulanate 125 mg tablet (Augmentin) oxycodone 5 mg tablet 5 mg PO Q4H PRN #25 tab 07/05/20 naproxen 500 mg tablet 500 mg PO BID PRN #20 tab 11/01/20 doxycycline monohydrate 100 mg 100 mg PO BID 7 Days #14 cap 11/13/20 capsule oxycodone-acetaminophen 5 mg-325 1 tab PO TID PRN #20 tab 11/22/20 mg tablet (Percocet) tamsulosin 0.4 mg capsule 0.4 mg PO BEDTIME 90 Days #90 cap 12/27/20 carisoprodol 350 mg tablet (Soma) 350 mg PO TID PRN 3 Days #10 tab 01/06/21 ibuprofen 400 mg tablet 400 mg PO Q6H PRN #20 tab 01/06/21 oxycodone-acetaminophen 5 mg-325 1 tab PO Q6H PRN #10 tab 01/06/21 mg tablet (Percocet) oxycodone-acetaminophen 5 mg-325 1 tab PO BID PRN #20 tab 01/20/21 mg tablet (Percocet) cyclobenzaprine 10 mg tablet 10 mg PO BID PRN #10 tab 01/28/21 naproxen 500 mg tablet 500 mg PO BID PRN #20 tab 01/28/21 tramadol 50 mg tablet 50 mg PO Q6H PRN #20 tab 02/03/21 oxycodone-acetaminophen 5 mg-325 1 tab PO TID PRN #20 tab 03/17/21 mg tablet (Percocet) hspnbknrrq-teqestyvtymqp-yltrhtef 1 cap PO Q6H PRN #10 cap 04/25/21 50 mg-300 mg-40 mg capsule (Fioricet) polyethylene glycol 3350 17 17 g PO BID #119 g 05/19/21 gram/dose oral powder (Miralax) tramadol 50 mg tablet 50 mg PO BID PRN #8 tab 05/19/21 oxycodone-acetaminophen 5 mg-325 1 tab PO TID PRN #9 tab 06/14/21 mg tablet (Percocet) Allergies Allergy/AdvReac Type Severity Reaction Status Date / Time egg [EGGS] Allergy Unknown ITCHY Verified 05/18/21 17:37 THROAT,SWELLING LIPS JANELL cooking spray Allergy Unknown swelling Uncoded 04/08/20 00:00 in mouth/tongue Review of Systems Review of Systems: Yes all other systems are reviewed and are negative Constitutional: Constitutional: Reports as per HPI and Reports no additional constitutional complaints Eyes: Eyes: Reports as per HPI and Reports no additional eye complaints ENT: Reports system reviewed and no additional complaints, except as documented and Reports as per HPI Cardiovascular: Cardiovascular: Reports as per HPI and Reports no additional cardiovascular complaints Respiratory: Respiratory: Reports as per HPI and Reports no additional respiratory complaints Gastrointestinal: Gastrointestinal: Reports as per HPI and Reports no additional gastrointestinal complaints Genitourinary: Genitourinary: Reports no additional male genitourinary complaints and Reports as per HPI Musculoskeletal: Musculoskeletal: Reports no additional musculoskeletal complaints, Reports as per HPI and Reports arthralgias (Right knee/right elbow pain) Integumentary/Breasts: Skin/Breast: Reports system reviewed and no additional complaints, except as docu and Reports as per HPI Neurologic: Reports system reviewed and no additional complaints, except as documented and Reports as per HPI Psychiatric: Psychiatric: Reports no additional psychiatric complaints and Reports as per HPI PMFSH Past Medical History Medical History Anxiety Asthma Incisional hernia Incisional hernia Incisional pain Obesity Open wound anterior abdominal wall SBO (small bowel obstruction) Surgical History H/O hernia repair Status post Hattie's procedure Family History Family History Mother No problems noted. Father No problems noted. Maternal Grandfather History of prostate cancer Maternal Grandmother History of breast cancer Social History Social History Household Members: Spouse Housing: House Do you presently have visiting nurse or other home services: No Alcohol intake: never Patient Tobacco Use Status: Never used Tobacco Second Hand Smoke Exposure: No Substance Use Type: Marijuana Advance Directives: No Advance Directives Information Provided: No service: No Current occupational status: disabled Physical Exam Vital Signs: Vital Signs: Last Vital Signs Temp 98 F 06/14/21 15:00 Pulse 69 06/14/21 15:00 Resp 18 06/14/21 15:00 BP 142/92 H 06/14/21 15:00 Pulse Ox 98 06/14/21 15:00 Body Mass Index 46.0 Const: General: cooperative, healthy appearing, comfortable, no acute distress, well developed, alert, awake and Physically active Orientation/consciousness: patient oriented x3 HENMT: Head: Yes normal to inspection, Yes No palpable skull fracture present, Yes normocephalic, Yes atraumatic, No abrasion, No Acrocyanosis present, No Kamara's sign, No contusion, No cranial bruits, No hematoma, No laceration, No occipital foramen tenderness, No palpable skull fracture, No raccoon eyes, No scalp lesion, No scalp tenderness, No Temporal artery tenderness present and No periorbital ecchymosis Ears: hearing grossly normal bilaterally, external ears normal, TM's normal bilaterally, EAC's normal, mastoids normal and no periauricular adenopathy Eyes: General: appearance normal, both eyes and all related structures Neck: Neck: Yes normal visual inspection, Yes full ROM, Yes no lymphadenopathy, Yes no meningeal signs, Yes trachea midline, Yes supple and No tender Chest: Chest palpation & inspection: normal inspection of the chest and normal palpation of entire chest wall Resp: Effort & Inspection: normal respiratory effort and able to speak in complete sentences Auscultation: clear to auscultation bilaterally Cardio: Jugular venous distension: no JVD Heart sounds: S1 normal heart sound present and S2 normal heart sound present GI: Inspection: Yes normal to inspection and No abdominal wall ecchymosis Palpation (GI): Soft to palpation, not firm, nontender, no guarding and not rigid : General: No CVA tenderness and Yes no CVA tenderness Back/Spine/Pelvis: Back: no CVA tenderness, No CVA tenderness and No back tenderness Skin: General skin exam: no rashes or lesions noted and elasticity normal Neuro: General: patient oriented x3, gait normal, no meningeal signs and CN's II-XI intact bilaterally Cranial nerves: Yes CN's II-XII intact bilaterally Extrem: General: Yes normal to inspection and Yes full ROM Elbow/forearm/wrist images: 1. Slight tenderness on palpation. Negative for any ecchymosis, deformity, crepitus, swelling, redness, warmth, pus discharge, foul odor, hotness, or coolness. Patient has complete range of motion of right upper extremity including elbow. Motor/neuro/vascular exam intact. Knee images: 1. Positive for tenderness on palpation. Negative for ecchymosis, redness, warmth, stiffness, deformity, red streaks, or elasticity. Popliteal pulse intact. Motor/neuro/vascular exam intact. Psych: Appearance: grossly normal, well kempt and not disheveled Course Course Course Narrative: Patient states he did not hit his head. No need for any head or neck imaging. Will send for elbow and knee x-ray. Patient given Toradol. Reevaluation(s) Reevaluation #1: X-ray of elbow shows effusion after trauma which indicates most likely elbow fracture. Patient will be placed in posterior splint. He shows arthritis of slight effusion. Patient will follow up Orthopedic. Patient discharged with pain medication Time: 18:04 Medical Decision Making [facility] Narrative Medical decision making narrative: Elbow fracture Discharge Plan Discharge Clinical Impression: Elbow fracture, right, Contusion of knee, Effusion of knee, Arthritis of knee Patient Disposition: Home, Self-Care Instructions: Elbow Fracture (ED), Osteoarthritis (ED), Contusion in Adults (ED), Swollen Knee Joint (ED) Additional Instructions: You are diagnosed with elbow fracture. He will be discharged with pain medication. You need to follow-up with orthopedic clinic. Return to ED for worsening pain, swelling, bluish black discoloration of fingertips, numbness/tingling, redness, chest pain, shortness of breath, or any other concerning symptoms. Prescriptions: New oxycodone-acetaminophen [Percocet] 5-325 mg tablet 1 tab PO TID PRN (Reason: pain) Qty: 9 RF: 0 No Action oxycodone 5 mg tablet 5 mg PO Q4H PRN (Reason: pain) Qty: 25 RF: 0 oxycodone-acetaminophen [Percocet] 5-325 mg tablet 1 tab PO TID PRN (Reason: pain) Qty: 20 RF: 0 tamsulosin 0.4 mg capsule 0.4 mg PO BEDTIME 90 Days Qty: 90 RF: 1 oxycodone-acetaminophen [Percocet] 5-325 mg tablet 1 tab PO BID PRN (Reason: pain) Qty: 20 RF: 0 tramadol 50 mg tablet 50 mg PO Q6H PRN (Reason: pain) Qty: 20 RF: 0 oxycodone-acetaminophen [Percocet] 5-325 mg tablet 1 tab PO TID PRN (Reason: pain) Qty: 20 RF: 0 levothyroxine 50 mcg Tablet 50 mcg PO DAILY RF: 0 docusate sodium [Colace] 100 mg Capsule 100 mg PO BID RF: 0 omeprazole 20 mg Capsule,Delayed Release(Dr/Ec) 20 mg PO DAILY RF: 0 montelukast [Singulair] 10 mg Tablet 10 mg PO BEDTIME RF: 0 loratadine 10 mg Tablet 10 mg PO DAILY RF: 0 escitalopram oxalate [Lexapro] 10 mg Tablet 10 mg PO DAILY RF: 0 albuterol sulfate 90 mcg/actuation Hfa Aerosol Inhaler 2 puff INHALATION Q4H PRN (Reason: ASTHMA) RF: 0 fluticasone propion-salmeterol [Wixela Inhub] 500-50 mcg/dose blister with device 1 puff inhalation BID RF: 0 hydrochlorothiazide 25 mg tablet 25 mg PO DAILY RF: 0 ipratropium bromide 0.03 % spray,non-aerosol 2 spray intranasal TID PRN (Reason: congestion) RF: 0 amoxicillin-pot clavulanate [Augmentin] 500-125 mg tablet 1 tab PO Q12H Qty: 10 RF: 0 amoxicillin-pot clavulanate [Augmentin] 875-125 mg tablet 1 tab PO Q12H 7 Days Qty: 14 RF: 0 naproxen 500 mg tablet 500 mg PO BID PRN (Reason: pain) Qty: 20 RF: 0 gpizksyouu-wqteysqdvmeaj-qfod [Fioricet] 50-300-40 mg capsule 1 cap PO Q6H PRN (Reason: pain) Qty: 10 RF: 0 doxycycline monohydrate 100 mg capsule 100 mg PO BID 7 Days Qty: 14 RF: 0 ibuprofen 400 mg tablet 400 mg PO Q6H PRN (Reason: pain) Qty: 20 RF: 0 carisoprodol [Soma] 350 mg tablet 350 mg PO TID PRN (Reason: muscle pain) 3 Days Qty: 10 RF: 0 oxycodone-acetaminophen [Percocet] 5-325 mg tablet 1 tab PO Q6H PRN (Reason: pain) Qty: 10 RF: 0 naproxen 500 mg tablet 500 mg PO BID PRN (Reason: pain) Qty: 20 RF: 0 cyclobenzaprine 10 mg tablet 10 mg PO BID PRN (Reason: muscle spasm) Qty: 10 RF: 0 tramadol 50 mg tablet 50 mg PO BID PRN (Reason: pain) Qty: 8 RF: 0 polyethylene glycol 3350 [Miralax] 17 gram/dose powder 17 g PO BID Qty: 119 RF: 0 Referrals: Kirby Lal MD [Physician] - 2 days (Elbow fracture. knee trauma/arthritis/effusion) Interventions: ED Discharge Assessment Last Done: 06/14/21 18:27 Discharge Date/Time: 06/14/21 18:29 Print Language: Danish
[2021-06-14] MEDS: Ketorolac Tromethamine 15 MG/ML VIAL 30 MG IM (16:42)
== END 2021-06-14 18:29 | disposition home or self-care (01) ==
PROVIDERS: Emergency Provider Emergency Medicine; PCP Internal Medicine
DX: S42.401A Unspecified fracture of lower end of right humerus, initial encounter for closed fracture (principal); S80.01XA Contusion of right knee, initial encounter; M25.461 Effusion, right knee; M17.11 Unilateral primary osteoarthritis, right knee; J45.909 Unspecified asthma, uncomplicated; W19.XXXA Unspecified fall, initial encounter; Y93.9 Activity, unspecified; Y92.9 Unspecified place or not applicable; Y99.9 Unspecified external cause status
CPT/HCPCS: 29125; 73080; 73564; 96372; 99284; J1885

== ENCOUNTER → 2021-09-27 20:30 | Outpatient (REF) | payer OTHER, SELFPAY | LOC: HO.SL 20:30 | PROVIDERS: PCP Family Medicine; Visit Provider Family Medicine | DX: G47.33 Obstructive sleep apnea (adult) (pediatric) (principal) | CPT/HCPCS: 95811 ==

== ENCOUNTER 2022-01-17 14:56 | Emergency (ER) | payer OTHER, SELFPAY ==
[2022-01-17 15:01] VITALS: BP 131/73; PULSE 75; RESP 18; TEMP 36; O2SAT 96; BMI 49.6
--- NOTE | 2022-01-17 16:49 | ED.GENADULT ---
HPI - General Adult General Chief complaint: Extremity Injury, Lower Stated complaint: L foot/leg pain Time Seen by Provider: 01/17/22 16:49 Source: patient Mode of arrival: ambulatory Limitations: no limitations History of Present Illness HPI narrative: Patient is a 51 year old male presenting to the emergency department today with left heel pain. Patient states that he has been having increased pain in his left heel when he walks on it. Patient states that the pain goes up his left lower leg but starts at the heel. Patient denies any dizziness, lightheadedness, abdominal pain, nausea, vomiting, fever, chills, blurry vision, double vision, loss of vision, chest pain, difficulty breathing, shortness of breath, back pain, night sweats, pain with urination, increased urinary frequency, increased urinary urgency, blood in his urine or stool, syncope or a near syncopal episode, recent trauma or falls, bowel incontinence, bladder incontinence, bowel retention, bladder retention, or any other complaints at this time. Onset (ago): month(s) (1) Location: left and lower extremity (heel) Radiation: non-radiation Severity: mild Severity scale (1-10): 1 Quality: dull Pain Consistency: intermittent Relieving factors: none Exacerbating factors: movement Associated symptoms: denies other symptoms Treatments prior to arrival: none Related Data Home Medications Medication Instructions Recorded Confirmed albuterol sulfate 90 mcg/actuation 2 puff inhalation Q4H PRN ASTHMA 05/11/20 02/02/21 aerosol inhaler docusate sodium 100 mg capsule 100 mg PO BID 05/11/20 02/02/21 (Colace) escitalopram oxalate 10 mg tablet 10 mg PO DAILY 05/11/20 02/02/21 (Lexapro) levothyroxine 50 mcg tablet 50 mcg PO DAILY 05/11/20 02/02/21 loratadine 10 mg tablet 10 mg PO DAILY 05/11/20 02/02/21 montelukast 10 mg tablet 10 mg PO BEDTIME 05/11/20 02/02/21 (Singulair) omeprazole 20 mg capsule,delayed 20 mg PO DAILY 05/11/20 02/02/21 release fluticasone 500 mcg-salmeterol 50 1 puff inhalation BID 05/25/20 02/02/21 mcg/dose blistr powdr for inhalation (Wixela Inhub) hydrochlorothiazide 25 mg tablet 25 mg PO DAILY 05/25/20 02/02/21 ipratropium bromide 21 mcg (0.03 2 spray intranasal TID PRN 05/25/20 02/02/21 %) nasal spray congestion Previous Rx's Medication Instructions Recorded amoxicillin 500 mg-potassium 1 tab PO Q12H #10 tabs 05/27/20 clavulanate 125 mg tablet (Augmentin) amoxicillin 875 mg-potassium 1 tab PO Q12H 7 days #14 tabs 06/17/20 clavulanate 125 mg tablet (Augmentin) oxycodone 5 mg tablet 5 mg PO Q4H PRN pain #25 tabs 07/05/20 naproxen 500 mg tablet 500 mg PO BID PRN pain #20 tabs 11/01/20 doxycycline monohydrate 100 mg 100 mg PO BID 7 days #14 caps 11/13/20 capsule oxycodone-acetaminophen 5 mg-325 1 tab PO TID PRN pain #20 tabs 11/22/20 mg tablet (Percocet) tamsulosin 0.4 mg capsule 0.4 mg PO BEDTIME 90 days #90 caps 12/27/20 carisoprodol 350 mg tablet (Soma) 350 mg PO TID PRN muscle pain 3 01/06/21 days #10 tabs ibuprofen 400 mg tablet 400 mg PO Q6H PRN pain #20 tabs 01/06/21 oxycodone-acetaminophen 5 mg-325 1 tab PO Q6H PRN pain #10 tabs 01/06/21 mg tablet (Percocet) oxycodone-acetaminophen 5 mg-325 1 tab PO BID PRN pain #20 tabs 01/20/21 mg tablet (Percocet) cyclobenzaprine 10 mg tablet 10 mg PO BID PRN muscle spasm #10 01/28/21 tabs naproxen 500 mg tablet 500 mg PO BID PRN pain #20 tabs 01/28/21 tramadol 50 mg tablet 50 mg PO Q6H PRN pain #20 tabs 02/03/21 oxycodone-acetaminophen 5 mg-325 1 tab PO TID PRN pain #20 tabs 03/17/21 mg tablet (Percocet) ynbilibvev-whcujgtjcfxom-dfpxntez 1 cap PO Q6H PRN pain #10 caps 04/25/21 50 mg-300 mg-40 mg capsule (Fioricet) polyethylene glycol 3350 17 17 g PO BID #119 grams 05/19/21 gram/dose oral powder (Miralax) tramadol 50 mg tablet 50 mg PO BID PRN pain #8 tabs 05/19/21 oxycodone-acetaminophen 5 mg-325 1 tab PO TID PRN pain #9 tabs 06/14/21 mg tablet (Percocet) prednisone 20 mg tablet 20 mg PO DAILY 12 days #26 tabs 01/17/22 Allergies Allergy/AdvReac Type Severity Reaction Status Date / Time egg [EGGS] Allergy Unknown ITCHY Verified 05/18/21 17:37 THROAT,SWELLING LIPS JANELL cooking spray Allergy Unknown swelling Uncoded 04/08/20 00:00 in mouth/tongue Review of Systems Constitutional: Constitutional: Reports no additional constitutional complaints, Denies chills, Denies fever(s) and Denies night sweats Eyes: Eyes: Reports no additional eye complaints, Denies blurry vision, Denies change in vision, Denies diplopia, Denies eye discharge, Denies loss of vision and Denies eye pain ENT: Denies dizziness Cardiovascular: Cardiovascular: Reports no additional cardiovascular complaints, Denies chest pain, Denies lightheadedness, Denies Loss of Consciousness and Denies dyspnea Respiratory: Respiratory: Reports no additional respiratory complaints and Denies dyspnea Gastrointestinal: Gastrointestinal: Reports no additional gastrointestinal complaints, Denies abdominal pain, Denies melena, Denies hematochezia, Denies change in bowel habits and Denies change in stool character Genitourinary: Genitourinary: Reports no additional male genitourinary complaints, Denies hematuria, Denies oliguria, Denies difficulty urinating, Denies dysuria, Denies urinary frequency, Denies urinary hesitancy, Denies urinary incontinence and Denies urinary urgency Musculoskeletal: Musculoskeletal: Reports no additional musculoskeletal complaints, Denies numbness and Denies tingling Comments: left heel pain Neurologic: Denies dizziness, Denies loss of vision, Denies numbness and Denies tingling Psychiatric: Psychiatric: Reports no additional psychiatric complaints Endocrine: Endocrine: Reports no additional endocrine complaints Hematologic/Lymphatic: Hematologic/Lymphatic: Reports no additional hematologic/lymphatic complaints Allergic/Immunologic: Allergic/Immunologic: Reports no additional allergic/immunologic complaints PMFSH Past Medical History Attestation statement: The following information was validated with the patient. Source: old records reviewed Medical History Anxiety Asthma Incisional hernia Incisional hernia Incisional pain Obesity Open wound anterior abdominal wall SBO (small bowel obstruction) Surgical History H/O hernia repair Status post Hattie's procedure Family History Family History Mother No problems noted. Father No problems noted. Maternal Grandfather History of prostate cancer Maternal Grandmother History of breast cancer Social History Social History Household Members: Spouse Housing: House Do you presently have visiting nurse or other home services: No Alcohol intake: never Patient Tobacco Use Status: Never used Tobacco Second Hand Smoke Exposure: No Substance Use Type: Marijuana Advance Directives: No Advance Directives Information Provided: No service: No Current occupational status: disabled Physical Exam ED Vital Signs: Vital Signs - 24 hr 01/17/22 15:01 Temperature 96.8 F Pulse Rate 75 Respiratory Rate 18 Blood Pressure 131/73 Pulse Oximetry 96 Oxygen Delivery Method Room Air BMI result Body Mass Index 49.6 Const General: cooperative, no acute distress, alert and awake Nutritional Appearance: well nourished Orientation/consciousness: patient oriented x3 Limitations: no limitations [facility] Head: Yes normal to inspection and Yes atraumatic Ears: hearing grossly normal bilaterally and external ears normal General nose exam: Normal external nose present, no nasal discharge noted and no epistaxis Face and sinus: Yes normal facial exam, No abrasion and No laceration Mouth: Normal oral and palatal mucosa present, no drooling and no muffled voice Eyes General: appearance normal, both eyes and all related structures Periorbital: periorbital findings normal Eyelids: Yes eyelids normal Conjunctivae: conjunctivae normal Pupils: Equal, round and reactive pupils present EOM: EOMs intact bilaterally Neck Neck: Yes normal visual inspection, Yes full ROM and Yes no lymphadenopathy Chest Chest palpation & inspection: normal inspection of the chest Resp Effort & Inspection: normal respiratory effort and able to speak in complete sentences Auscultation: clear to auscultation bilaterally Cardio Rate: regular rate Rhythm: regular rhythm GI Inspection: Yes normal to inspection Neuro General: patient oriented x3 and moves all extremities Cranial nerves: Yes Equal, round and reactive pupils present Cognition (Neuro): normal cognition Motor exam (neuro): 5/5 motor strength present throughout Sensory Exam: Normal double simultaneous stimulation for sensation Coordination: [id number] test normal Extrem General: Yes normal to inspection, Yes full ROM and Yes capillary refill normal Psych Appearance: grossly normal Mental Status: mental status grossly normal Affect: normal affect Attitude: cooperative Thought process: Normal thought process present Thought content: Normal thought content present Insight: Good insight present (Psych) Medical Decision Making MDM Narrative Medical decision making narrative: Patient is a 51 year old male presenting to the emergency department today with left heel pain. Patient's physical exam was unremarkable. I explained my physical exam findings to the patient. I answered all questions asked by the patient. Patient received IM Solu-medrol which he stated helped his symptoms significantly. I stressed the importance of the patient taking his medication as prescribed. I stressed the importance of the patient following up with his primary care provider and orthopedist. I stressed the importance of the patient returning to the emergency department immediately if his symptoms were to worsen or if he were to develop any dizziness, shortness of breath, difficulty breathing, chest pain, blurry vision, loss of vision, nausea, vomiting, abdominal pain, fever, chills, back pain, or any other complaints. Patient verbalized agreement and understanding with this treatment plan and discharge. Differential Diagnosis Differential Diagnosis: plantar fasciitis, left heel pain Medical Records Medical records reviewed: Yes I reviewed the patient's medical records. Discharge Plan Discharge Clinical Impression: Plantar fasciitis Patient Disposition: Home, Self-Care Instructions: Plantar Fasciitis (ED) Additional Instructions: Follow up with your primary care provider and an orthopedist. Return to the emergency department immediately if your symptoms worsen or if you develop any dizziness, shortness of breath, difficulty breathing, chest pain, blurry vision, loss of vision, nausea, vomiting, abdominal pain, fever, chills, back pain, or any other complaints. Prescriptions: New prednisone 20 mg tablet 20 mg PO DAILY 12 Days Qty: 26 0RF Rx Instructions: Take 3 tablets for 5 days THEN; Take 2 tablets for 4 days THEN; Take 1 tablet for 3 days No Action oxycodone 5 mg tablet 5 mg PO Q4H PRN (Reason: pain) Qty: 25 0RF oxycodone-acetaminophen [Percocet] 5-325 mg tablet 1 tab PO TID PRN (Reason: pain) Qty: 20 0RF tamsulosin 0.4 mg capsule 0.4 mg PO BEDTIME 90 Days Qty: 90 1RF oxycodone-acetaminophen [Percocet] 5-325 mg tablet 1 tab PO BID PRN (Reason: pain) Qty: 20 0RF tramadol 50 mg tablet 50 mg PO Q6H PRN (Reason: pain) Qty: 20 0RF oxycodone-acetaminophen [Percocet] 5-325 mg tablet 1 tab PO TID PRN (Reason: pain) Qty: 20 0RF levothyroxine 50 mcg Tablet 50 mcg PO DAILY docusate sodium [Colace] 100 mg Capsule 100 mg PO BID omeprazole 20 mg Capsule,Delayed Release(Dr/Ec) 20 mg PO DAILY montelukast [Singulair] 10 mg Tablet 10 mg PO BEDTIME loratadine 10 mg Tablet 10 mg PO DAILY escitalopram oxalate [Lexapro] 10 mg Tablet 10 mg PO DAILY albuterol sulfate 90 mcg/actuation Hfa Aerosol Inhaler 2 puff INHALATION Q4H PRN (Reason: ASTHMA) fluticasone propion-salmeterol [Wixela Inhub] 500-50 mcg/dose blister with device 1 puff inhalation BID hydrochlorothiazide 25 mg tablet 25 mg PO DAILY ipratropium bromide 0.03 % spray,non-aerosol 2 spray intranasal TID PRN (Reason: congestion) amoxicillin-pot clavulanate [Augmentin] 500-125 mg tablet 1 tab PO Q12H Qty: 10 0RF amoxicillin-pot clavulanate [Augmentin] 875-125 mg tablet 1 tab PO Q12H 7 Days Qty: 14 0RF naproxen 500 mg tablet 500 mg PO BID PRN (Reason: pain) Qty: 20 0RF oxiplzcysj-hjqzwxolxoaaf-eqth [Fioricet] 50-300-40 mg capsule 1 cap PO Q6H PRN (Reason: pain) Qty: 10 0RF doxycycline monohydrate 100 mg capsule 100 mg PO BID 7 Days Qty: 14 0RF ibuprofen 400 mg tablet 400 mg PO Q6H PRN (Reason: pain) Qty: 20 0RF carisoprodol [Soma] 350 mg tablet 350 mg PO TID PRN (Reason: muscle pain) 3 Days Qty: 10 0RF oxycodone-acetaminophen [Percocet] 5-325 mg tablet 1 tab PO Q6H PRN (Reason: pain) Qty: 10 0RF naproxen 500 mg tablet 500 mg PO BID PRN (Reason: pain) Qty: 20 0RF cyclobenzaprine 10 mg tablet 10 mg PO BID PRN (Reason: muscle spasm) Qty: 10 0RF tramadol 50 mg tablet 50 mg PO BID PRN (Reason: pain) Qty: 8 0RF polyethylene glycol 3350 [Miralax] 17 gram/dose powder 17 g PO BID Qty: 119 0RF oxycodone-acetaminophen [Percocet] 5-325 mg tablet 1 tab PO TID PRN (Reason: pain) Qty: 9 0RF Rx Instructions: side effect is drowsiness. Do not take at work or while driving. Ref[place]: [facility] [place] [facility] [place]Provider Group] Patricia Berry MD [Primary Care Provider] - Interventions: ED Discharge Assessment Last Done: 01/17/22 17:45 Discharge Date/Time: 01/17/22 17:46 Print Language: Estonian
[2022-01-17] MEDS: methylPREDNISolone Sod Succ 125 MG/2 ML VIAL 120 MG IM (17:10)
== END 2022-01-17 17:46 | disposition home or self-care (01) ==
PROVIDERS: Emergency Provider Emergency Medicine; PCP Family Medicine
DX: M72.2 Plantar fascial fibromatosis (principal); I10 Essential (primary) hypertension
CPT/HCPCS: 96372; 99283; 99284; J2930

== ENCOUNTER 2022-01-25 08:29 | Outpatient (REF) | payer OTHER, SELFPAY ==
--- NOTE | ~2022-01-25 | XR_ITS ---
EXAMINATION: XR FOOT, LEFT CLINICAL INFORMATION: Pain left foot COMPARISON: None TECHNIQUE: AP, lateral, and oblique views of the left foot. FINDINGS: Normal bony mineralization. No acute or healing fracture, dislocation, or destructive process. No periostitis. There are bulky posterior and plantar calcaneal spurs. The retrocalcaneal recess is preserved. The subtalar joint appears normal. Midfoot unremarkable. There is incidental bifid medial sesamoid. Mild hallux valgus of approximately 22 degrees. There are postsurgical changes with screws overlying second and third metatarsal heads. There is a healed para-articular erosion versus old healed trauma lateral fifth metatarsal head. There is spurring at bases second and third toe proximal phalanges without joint narrowing or erosive change. Ankylosis is present at second and third toe PIP joints. No interphalangeal erosive changes. XR/XR foot LT min 3V IMPRESSION: -Bulky posterior and plantar calcaneal spurs. -Ankylosis second and third PIP joints. Spurring second and third MTP without erosive change. -Healed para-articular erosion versus old trauma lateral fifth metatarsal head.
== END 2022-01-25 08:30 | disposition home or self-care (01) ==
LOC: HO.XRAY 08:29
PROVIDERS: PCP Family Medicine; Visit Provider Internal Medicine
DX: M79.672 Pain in left foot (principal)
CPT/HCPCS: 73630

== ENCOUNTER 2022-02-19 16:06 | Outpatient (REF) | payer OTHER, SELFPAY ==
--- NOTE | ~2022-02-19 | US_ITS ---
EXAMINATION: US VENOUS ULTRASOUND WITH DOPPLER LOWER EXTREMITY, RIGHT CLINICAL INFORMATION: Pain and swelling. COMPARISON: None. TECHNIQUE: Ultrasound of the deep veins is performed from the hip to the calf with compression sonography and color and pulse Doppler assessment. Spectral analysis with color-flow imaging is performed. FINDINGS: There is normal venous compression and respiratory variation and augmented flow. The visualized common femoral vein, superficial femoral vein, profunda femoral vein, popliteal vein, and the trifurcation region shows no evidence of deep venous thrombosis. There is no significant popliteal fossa cyst. There is an enlarged lymph node in the right groin measuring 3.3 x 1.6 x 1.9 cm. It has a typical lymph node appearance by ultrasound. If the patient's symptoms persist, followup ultrasound in 5 days 7 days might be of value to exclude proximal propagation from a non-visualized calf vein. US/US venous duplex LE RT IMPRESSION: No DVT demonstrated in the right lower extremity. Enlarged 3.3 cm lymph node right groin with a typical ultrasound appearance. If patient has no clinical symptoms of infection or lesion anywhere else, a close follow-up in 3-6 months can be performed.
== END 2022-02-19 16:07 | disposition home or self-care (01) ==
LOC: HO.US 16:06
PROVIDERS: PCP Family Medicine; Visit Provider Emergency Medicine
DX: M79.661 Pain in right lower leg (principal); R22.41 Localized swelling, mass and lump, right lower limb
CPT/HCPCS: 93971

== ENCOUNTER 2022-02-22 14:35 | Emergency (ER) | payer OTHER, SELFPAY ==
--- NOTE | ~2022-02-22 | XR_ITS ---
EXAMINATION: XR KNEE, RIGHT CLINICAL INFORMATION: Right knee pain COMPARISON: Radiographs right knee 06/14/2021 TECHNIQUE: 5 views of the right knee. FINDINGS: No fracture, dislocation, or destructive process. There are osteoarthritic changes again seen greater medial knee joint compartment with joint narrowing and marginal osteophytes from the femoral condyles and patella. There is a trace suprapatellar effusion with mild thickening of the bursa. No erosive change or chondrocalcinosis. Hoffa's fat pad and the deep infrapatellar recess are unremarkable. There is spurring again seen at the proximal anterior tibial tubercle near the patellar tendon insertion. XR/XR knee RT 4V IMPRESSION: -No fracture or dislocation. -Osteoarthritis medial compartment with joint narrowing and osteophytes and trace effusion. -Spurring patella tendon insertion tibia. Deep infrapatellar recess preserved.
[2022-02-22 15:23] VITALS: BP 156/99; PULSE 82; RESP 20; TEMP 36.9; O2SAT 95; BMI 49.5
--- NOTE | 2022-02-22 16:54 | ED.GENADULT ---
HPI - General Adult General Chief complaint: Extremity Injury, Lower Stated complaint: r knee swollen Time Seen by Provider: 02/22/22 16:53 Source: patient Mode of arrival: ambulatory History of Present Illness HPI narrative: 51-year-old male with history of hypertension presents with right knee pain without trauma and states that his primary care provider sent him in for evaluation in the emergency room. On review of all of his lab work as well as imaging studies patient has been seen here in January as well for similar complaints, and at that time had x-rays of the left foot without acute findings of fracture, dislocation. On 02/19 patient has had a venous duplex that was negative for DVT, he denies any fevers or chills and it is noted that he has had x-rays of this right knee in June of last year. Related Data Home Medications Medication Instructions Recorded Confirmed albuterol sulfate 90 mcg/actuation 2 puff inhalation Q4H PRN ASTHMA 05/11/20 02/02/21 aerosol inhaler docusate sodium 100 mg capsule 100 mg PO BID 05/11/20 02/02/21 (Colace) escitalopram oxalate 10 mg tablet 10 mg PO DAILY 05/11/20 02/02/21 (Lexapro) levothyroxine 50 mcg tablet 50 mcg PO DAILY 05/11/20 02/02/21 loratadine 10 mg tablet 10 mg PO DAILY 05/11/20 02/02/21 montelukast 10 mg tablet 10 mg PO BEDTIME 05/11/20 02/02/21 (Singulair) omeprazole 20 mg capsule,delayed 20 mg PO DAILY 05/11/20 02/02/21 release fluticasone 500 mcg-salmeterol 50 1 puff inhalation BID 05/25/20 02/02/21 mcg/dose blistr powdr for inhalation (Wixela Inhub) hydrochlorothiazide 25 mg tablet 25 mg PO DAILY 05/25/20 02/02/21 ipratropium bromide 21 mcg (0.03 2 spray intranasal TID PRN 05/25/20 02/02/21 %) nasal spray congestion Previous Rx's Medication Instructions Recorded amoxicillin 500 mg-potassium 1 tab PO Q12H #10 tabs 05/27/20 clavulanate 125 mg tablet (Augmentin) amoxicillin 875 mg-potassium 1 tab PO Q12H 7 days #14 tabs 06/17/20 clavulanate 125 mg tablet (Augmentin) oxycodone 5 mg tablet 5 mg PO Q4H PRN pain #25 tabs 07/05/20 naproxen 500 mg tablet 500 mg PO BID PRN pain #20 tabs 11/01/20 doxycycline monohydrate 100 mg 100 mg PO BID 7 days #14 caps 11/13/20 capsule oxycodone-acetaminophen 5 mg-325 1 tab PO TID PRN pain #20 tabs 11/22/20 mg tablet (Percocet) tamsulosin 0.4 mg capsule 0.4 mg PO BEDTIME 90 days #90 caps 12/27/20 carisoprodol 350 mg tablet (Soma) 350 mg PO TID PRN muscle pain 3 01/06/21 days #10 tabs ibuprofen 400 mg tablet 400 mg PO Q6H PRN pain #20 tabs 01/06/21 oxycodone-acetaminophen 5 mg-325 1 tab PO Q6H PRN pain #10 tabs 01/06/21 mg tablet (Percocet) oxycodone-acetaminophen 5 mg-325 1 tab PO BID PRN pain #20 tabs 01/20/21 mg tablet (Percocet) cyclobenzaprine 10 mg tablet 10 mg PO BID PRN muscle spasm #10 01/28/21 tabs naproxen 500 mg tablet 500 mg PO BID PRN pain #20 tabs 01/28/21 tramadol 50 mg tablet 50 mg PO Q6H PRN pain #20 tabs 02/03/21 oxycodone-acetaminophen 5 mg-325 1 tab PO TID PRN pain #20 tabs 03/17/21 mg tablet (Percocet) pbejgbhdcd-noduikyoufdam-iycjokqb 1 cap PO Q6H PRN pain #10 caps 04/25/21 50 mg-300 mg-40 mg capsule (Fioricet) polyethylene glycol 3350 17 17 g PO BID #119 grams 05/19/21 gram/dose oral powder (Miralax) tramadol 50 mg tablet 50 mg PO BID PRN pain #8 tabs 05/19/21 oxycodone-acetaminophen 5 mg-325 1 tab PO TID PRN pain #9 tabs 06/14/21 mg tablet (Percocet) prednisone 20 mg tablet 20 mg PO DAILY 12 days #26 tabs 01/17/22 Allergies Allergy/AdvReac Type Severity Reaction Status Date / Time egg [EGGS] Allergy Unknown ITCHY Verified 05/18/21 17:37 THROAT,SWELLING LIPS JANELL cooking spray Allergy Unknown swelling Uncoded 04/08/20 00:00 in mouth/tongue Review of Systems Review of Systems: Pertinent positives and negatives as stated in HPI 10 point review of systems is otherwise negative. PMFSH Past Medical History Source: nursing notes reviewed Medical History Anxiety Asthma Incisional hernia Incisional hernia Incisional pain Obesity Open wound anterior abdominal wall SBO (small bowel obstruction) Surgical History H/O hernia repair Status post Hattie's procedure Family History Family History Mother No problems noted. Father No problems noted. Maternal Grandfather History of prostate cancer Maternal Grandmother History of breast cancer Social History Social History Household Members: Spouse Housing: House Do you presently have visiting nurse or other home services: No Alcohol intake: never Patient Tobacco Use Status: Never used Tobacco Second Hand Smoke Exposure: No Substance Use Type: Marijuana Advance Directives: No Advance Directives Information Provided: No service: No Current occupational status: disabled Physical Exam ED Vital Signs: Vital Signs - 24 hr 02/22/22 15:23 Temperature 98.4 F Pulse Rate 82 Respiratory Rate 20 Blood Pressure 156/99 H Pulse Oximetry 95 Oxygen Delivery Method Room Air BMI result Body Mass Index 49.5 VITAL SIGNS: Reviewed. GENERAL: Significantly elevated BMI, well nourished, in no acute distress. HEAD: Normocephalic/atraumatic EYES: PERRLA, EOMI EARS: Ext canals without abnormality OROPHARYNX: no oral lesions noted, posterior pharynx clear LUNGS: Normal breath sounds. No adventitious sounds or accessory muscle use. SpO2<95> CARDIOVASCULAR: Regular rate and rhythm without noted murmurs, no JVD or lower extremity edema. ABDOMEN: Soft, non-tender, non-distended with bowel sounds. MUSCULOSKELETAL: No tenderness, deformities, or effusions noted on gross inspection. EXTREMITIES: No cyanosis, clubbing or edema; RIGHT LOWER EXTREMITY: Exam is somewhat limited but there is no erythema/induration and no ballotable swelling is appreciated, neurovascular is intact distal and there is no edema distal pitting or otherwise. SKIN: Inspection of the skin reveals no rashes NEUROLOGIC: Alert and oriented x 4. Strength and sensation to light touch were grossly intact x 4. Course Course Course Narrative: 51-year-old male with history and clinical presentation consistent with osteoarthritis in combination with elevated BMI likely contributing to increased pain as well as a component of venous insufficiency which is likely contributing to patient's history noted swelling. On review of the venous duplex there was not identified lymph node enlarged at the groin of uncertain etiology. At this time, there are no concerns for infection/gout/DVT and patient is currently on medication prescribed by his primary care provider (tramadol). I discussed with the patient that physical therapy and referral to Sports Medicine may be a good idea to discuss with his primary care provider. Discharge Plan Discharge Clinical Impression: Osteoarthritis of right knee, Venous insufficiency Patient Disposition: Home, Self-Care Instructions: Osteoarthritis (ED), Venous Insufficiency (DC) Additional Instructions: 1. Tylenol 1000 mg, orally, every 6 hours as needed for pain control. Please be aware that you are taking other medication that contains acetaminophen/Tylenol so you need to ensure that you do not exceed 4000 mg within 24 hours. Consider ibuprofen 400 mg, orally with milk or food, every 6 hours as needed for additional pain control. 2. Consider utilizing zlat-lbd-zjpyaxl compression stockings to help reduce leg swelling. 3. Resume all home medications as prescribed. 4. Please follow-up with your primary care provider by calling the office today and discuss getting a referral for physical therapy and/or sports medicine for further management your right knee pain. Return to the ER for worsening symptoms. Prescriptions: No Action oxycodone 5 mg tablet 5 mg PO Q4H PRN (Reason: pain) Qty: 25 0RF oxycodone-acetaminophen [Percocet] 5-325 mg tablet 1 tab PO TID PRN (Reason: pain) Qty: 20 0RF tamsulosin 0.4 mg capsule 0.4 mg PO BEDTIME 90 Days Qty: 90 1RF oxycodone-acetaminophen [Percocet] 5-325 mg tablet 1 tab PO BID PRN (Reason: pain) Qty: 20 0RF tramadol 50 mg tablet 50 mg PO Q6H PRN (Reason: pain) Qty: 20 0RF oxycodone-acetaminophen [Percocet] 5-325 mg tablet 1 tab PO TID PRN (Reason: pain) Qty: 20 0RF levothyroxine 50 mcg Tablet 50 mcg PO DAILY docusate sodium [Colace] 100 mg Capsule 100 mg PO BID omeprazole 20 mg Capsule,Delayed Release(Dr/Ec) 20 mg PO DAILY montelukast [Singulair] 10 mg Tablet 10 mg PO BEDTIME loratadine 10 mg Tablet 10 mg PO DAILY escitalopram oxalate [Lexapro] 10 mg Tablet 10 mg PO DAILY albuterol sulfate 90 mcg/actuation Hfa Aerosol Inhaler 2 puff INHALATION Q4H PRN (Reason: ASTHMA) fluticasone propion-salmeterol [Wixela Inhub] 500-50 mcg/dose blister with device 1 puff inhalation BID hydrochlorothiazide 25 mg tablet 25 mg PO DAILY ipratropium bromide 0.03 % spray,non-aerosol 2 spray intranasal TID PRN (Reason: congestion) amoxicillin-pot clavulanate [Augmentin] 500-125 mg tablet 1 tab PO Q12H Qty: 10 0RF amoxicillin-pot clavulanate [Augmentin] 875-125 mg tablet 1 tab PO Q12H 7 Days Qty: 14 0RF naproxen 500 mg tablet 500 mg PO BID PRN (Reason: pain) Qty: 20 0RF towlixwoan-gsogqonbhouma-jfgt [Fioricet] 50-300-40 mg capsule 1 cap PO Q6H PRN (Reason: pain) Qty: 10 0RF doxycycline monohydrate 100 mg capsule 100 mg PO BID 7 Days Qty: 14 0RF ibuprofen 400 mg tablet 400 mg PO Q6H PRN (Reason: pain) Qty: 20 0RF carisoprodol [Soma] 350 mg tablet 350 mg PO TID PRN (Reason: muscle pain) 3 Days Qty: 10 0RF oxycodone-acetaminophen [Percocet] 5-325 mg tablet 1 tab PO Q6H PRN (Reason: pain) Qty: 10 0RF naproxen 500 mg tablet 500 mg PO BID PRN (Reason: pain) Qty: 20 0RF cyclobenzaprine 10 mg tablet 10 mg PO BID PRN (Reason: muscle spasm) Qty: 10 0RF tramadol 50 mg tablet 50 mg PO BID PRN (Reason: pain) Qty: 8 0RF polyethylene glycol 3350 [Miralax] 17 gram/dose powder 17 g PO BID Qty: 119 0RF oxycodone-acetaminophen [Percocet] 5-325 mg tablet 1 tab PO TID PRN (Reason: pain) Qty: 9 0RF Rx Instructions: side effect is drowsiness. Do not take at work or while driving. prednisone 20 mg tablet 20 mg PO DAILY 12 Days Qty: 26 0RF Rx Instructions: Take 3 tablets for 5 days THEN; Take 2 tablets for 4 days THEN; Take 1 tablet for 3 days Referrals: Patricia Berry MD [Primary Care Provider] - (Patient would likely benefit from a physical therapy and/or Sports Medicine referral. In addition, strongly recommend weight management.)
== END 2022-02-22 17:20 | disposition home or self-care (01) ==
PROVIDERS: Emergency Provider Student in an Organized Health Care Education/Training Program; PCP Family Medicine
DX: M17.11 Unilateral primary osteoarthritis, right knee (principal); I87.2 Venous insufficiency (chronic) (peripheral); Z79.899 Other long term (current) drug therapy
CPT/HCPCS: 73564; 99282; 99283

== ENCOUNTER 2022-02-27 13:39 | Emergency (ER) | payer OTHER, SELFPAY ==
--- NOTE | ~2022-02-27 | XR_ITS ---
EXAMINATION: XR HUMERUS, LEFT and left hand and wrist CLINICAL INFORMATION: Left humerus, wrist, and hand pain after fall COMPARISON: None TECHNIQUE: AP and lateral views of the left humerus. 5 views of the left hand and wrist. FINDINGS: Views of the left humerus do not definitely demonstrate acute fracture or dislocation. No true lateral view was obtained and I cannot comment on any possible effusion. If there is question of an elbow fracture then dedicated elbow study is recommended. There is a small olecranon spur at site of insertion of the triceps tendon where there is small amount of edematous change. The supposed lateral view is not a true lateral study and is a nonstandard view there is a 2 mm bony density seen about the dorsal aspect of the proximal humerus which appears well circumscribed and likely represents a secondary ossification center. There is no evidence of acute fracture or dislocation of the left hand or wrist. Joint spaces are maintained. There is some spurring seen at the first carpal joint. There is some soft tissue swelling seen about the dorsum of the metacarpal phalangeal joints. XR/XR humerus LT IMPRESSION: Limited evaluation but without definite glenohumeral fracture identified. If there is question of an elbow fracture then dedicated elbow study is recommended. No evidence of acute fracture or dislocation of the left hand or wrist.
--- NOTE | ~2022-02-27 | XR_ITS ---
EXAMINATION: XR HUMERUS, LEFT and left hand and wrist CLINICAL INFORMATION: Left humerus, wrist, and hand pain after fall COMPARISON: None TECHNIQUE: AP and lateral views of the left humerus. 5 views of the left hand and wrist. FINDINGS: Views of the left humerus do not definitely demonstrate acute fracture or dislocation. No true lateral view was obtained and I cannot comment on any possible effusion. If there is question of an elbow fracture then dedicated elbow study is recommended. There is a small olecranon spur at site of insertion of the triceps tendon where there is small amount of edematous change. The supposed lateral view is not a true lateral study and is a nonstandard view there is a 2 mm bony density seen about the dorsal aspect of the proximal humerus which appears well circumscribed and likely represents a secondary ossification center. There is no evidence of acute fracture or dislocation of the left hand or wrist. Joint spaces are maintained. There is some spurring seen at the first carpal joint. There is some soft tissue swelling seen about the dorsum of the metacarpal phalangeal joints. XR/XR hand wrist LT IMPRESSION: Limited evaluation but without definite glenohumeral fracture identified. If there is question of an elbow fracture then dedicated elbow study is recommended. No evidence of acute fracture or dislocation of the left hand or wrist.
[2022-02-27 15:10] VITALS: BP 136/88; PULSE 70; RESP 18; TEMP 36.9; O2SAT 98; BMI 49.5
--- NOTE | 2022-02-27 17:03 | ED_ITS ---
HPI - Fall General Chief Complaint: Fall Stated Complaint: Fall T-1/L shoulder pain/L hand pain Time Seen by Provider: 02/27/22 16:30 Source: patient Mode of arrival: ambulatory Limitations: no limitations History of Present Illness HPI Narrative: 51-year-old male presenting to the ED with complaints of left shoulder pain/left hand and wrist/ 5th digit pain after he had a mechanical fall yesterday while he was at home. He reports that he was cleaning his AC on his steps and he had some sandals on and due to the water that he was cleaning his AC from he slipped and fell down half a flight of steps landing on his left shoulder/left hand and wrist and since then has been having pain. He denies head injury loss of consciousness or prolonged down time. He denies any symptoms prior to the fall. He denies being on any blood thinners. He denies neck pain/ injury. He denies any other extremity injury, he denies any paresthesias or weakness or any other symptoms complaints concerns or injuries at this time. MD complaint: fall Onset (ago): day(s) (yesterday ) Fall from: standing and down stairs (#) (1/2 flights of stairs ) Fall witnessed: no Place fall occurred: home Loss of consciousness: none Prolonged down time: no Symptoms prior to fall: none Context: tripped/slipped Location of injury - extremities: left: shoulder and hand (and 5th digit ) Severity: moderate Quality: aching Associated symptoms (after fall): denies Related Data Home Medications Medication Instructions Recorded Confirmed albuterol sulfate 90 mcg/actuation 2 puff inhalation Q4H PRN ASTHMA 05/11/20 02/02/21 aerosol inhaler docusate sodium 100 mg capsule 100 mg PO BID 05/11/20 02/02/21 (Colace) escitalopram oxalate 10 mg tablet 10 mg PO DAILY 05/11/20 02/02/21 (Lexapro) levothyroxine 50 mcg tablet 50 mcg PO DAILY 05/11/20 02/02/21 loratadine 10 mg tablet 10 mg PO DAILY 05/11/20 02/02/21 montelukast 10 mg tablet 10 mg PO BEDTIME 05/11/20 02/02/21 (Singulair) omeprazole 20 mg capsule,delayed 20 mg PO DAILY 05/11/20 02/02/21 release fluticasone 500 mcg-salmeterol 50 1 puff inhalation BID 05/25/20 02/02/21 mcg/dose blistr powdr for inhalation (Farzana Sánchez) hydrochlorothiazide 25 mg tablet 25 mg PO DAILY 05/25/20 02/02/21 ipratropium bromide 21 mcg (0.03 2 spray intranasal TID PRN 05/25/20 02/02/21 %) nasal spray congestion Previous Rx's Medication Instructions Recorded amoxicillin 500 mg-potassium 1 tab PO Q12H #10 tabs 05/27/20 clavulanate 125 mg tablet (Augmentin) amoxicillin 875 mg-potassium 1 tab PO Q12H 7 days #14 tabs 06/17/20 clavulanate 125 mg tablet (Augmentin) oxycodone 5 mg tablet 5 mg PO Q4H PRN pain #25 tabs 07/05/20 naproxen 500 mg tablet 500 mg PO BID PRN pain #20 tabs 11/01/20 doxycycline monohydrate 100 mg 100 mg PO BID 7 days #14 caps 11/13/20 capsule oxycodone-acetaminophen 5 mg-325 1 tab PO TID PRN pain #20 tabs 11/22/20 mg tablet (Percocet) tamsulosin 0.4 mg capsule 0.4 mg PO BEDTIME 90 days #90 caps 12/27/20 carisoprodol 350 mg tablet (Soma) 350 mg PO TID PRN muscle pain 3 01/06/21 days #10 tabs ibuprofen 400 mg tablet 400 mg PO Q6H PRN pain #20 tabs 01/06/21 oxycodone-acetaminophen 5 mg-325 1 tab PO Q6H PRN pain #10 tabs 01/06/21 mg tablet (Percocet) oxycodone-acetaminophen 5 mg-325 1 tab PO BID PRN pain #20 tabs 01/20/21 mg tablet (Percocet) cyclobenzaprine 10 mg tablet 10 mg PO BID PRN muscle spasm #10 01/28/21 tabs naproxen 500 mg tablet 500 mg PO BID PRN pain #20 tabs 01/28/21 tramadol 50 mg tablet 50 mg PO Q6H PRN pain #20 tabs 02/03/21 oxycodone-acetaminophen 5 mg-325 1 tab PO TID PRN pain #20 tabs 03/17/21 mg tablet (Percocet) ofcpcxydks-xcpienbsijzrp-bzenjfzd 1 cap PO Q6H PRN pain #10 caps 04/25/21 50 mg-300 mg-40 mg capsule (Fioricet) polyethylene glycol 3350 17 17 g PO BID #119 grams 05/19/21 gram/dose oral powder (Miralax) tramadol 50 mg tablet 50 mg PO BID PRN pain #8 tabs 05/19/21 oxycodone-acetaminophen 5 mg-325 1 tab PO TID PRN pain #9 tabs 06/14/21 mg tablet (Percocet) prednisone 20 mg tablet 20 mg PO DAILY 12 days #26 tabs 01/17/22 acetaminophen 500 mg tablet 1,000 mg PO QID PRN fever or pain 02/27/22 (Tylenol Extra Strength) #14 tabs ibuprofen 800 mg tablet 800 mg PO Q8H PRN pain #14 tabs 02/27/22 oxycodone 5 mg tablet 5 mg PO Q6H PRN pain #14 tabs 02/27/22 Allergies Allergy/AdvReac Type Severity Reaction Status Date / Time egg [EGGS] Allergy Unknown ITCHY Verified 05/18/21 17:37 THROAT,SWELLING LIPS JANELL cooking spray Allergy Unknown swelling Uncoded 04/08/20 00:00 in mouth/tongue Review of Systems Review of Systems: Constitutional : No Weight loss, No Fever, No Chills, No Night Sweats, No Fatigue, No Malaise ENT/Mouth : No Hearing loss, No Ear Pain, No Nasal Congestion, No Sinus Pain, No Hoarseness, No sore throat, No Rhinorrhea, No Swallowing Difficulty Eyes: No Eye Pain, No Swelling, No Redness, No Foreign Body, No Discharge, No Vision Changes Cardiovascular : No Chest Pain, No SOB, No Dyspnea on Exertion, No Orthopnea, No Edema, No Palpitations Respiratory : No Cough, No Sputum, No Wheezing, No Smoke Exposure, No Dyspnea Gastrointestinal : No Nausea, No Vomiting, No Diarrhea, No Constipation, No abdominal Pain, No Hematochezia, No Melena Genitourinary : no irregular bleeding, No Dysuria, No Urinary Frequency, No Hematuria, No Urinary Incontinence, No Urgency, No Flank Pain, No Urinary Flow Changes, No Hesitancy Musculoskeletal : N+ left shoulder/wrist/hand/5th digit pain, No additional joint pain, No Myalgias, No Joint Swelling Skin : No Skin Lesions, No rash Neuro : No Weakness, No Numbness, No Paresthesias, No Loss of Consciousness, No Dizziness, No Headache Psych : No Anxiety/Panic, No Depression, No SI/HI/AH/VH, No Social Issues, Heme/Lymph: No Bruising, No Bleeding,No Lymphadenopathy Endocrine : No Polyuria, No Polydipsia, No Temperature Intolerance Yes all other systems are reviewed and are negative [facility] Past Medical History Attestation statement: The following information was validated with the patient. Source: old records reviewed and nursing notes reviewed Medical History Anxiety Asthma Incisional hernia Incisional hernia Incisional pain Obesity Open wound anterior abdominal wall SBO (small bowel obstruction) Surgical History H/O hernia repair Status post Hattie's procedure Family History Family History Mother No problems noted. Father No problems noted. Maternal Grandfather History of prostate cancer Maternal Grandmother History of breast cancer Social History Social History Household Members: Spouse Housing: House Do you presently have visiting nurse or other home services: No Alcohol intake: never Patient Tobacco Use Status: Never used Tobacco Second Hand Smoke Exposure: No Substance Use Type: Marijuana Advance Directives: No Advance Directives Information Provided: Yes service: No Current occupational status: disabled Physical Exam Vital Signs: Vital Signs: Last Vital Signs Temp 98.5 F 02/27/22 15:10 Pulse 70 02/27/22 15:10 Resp 18 02/27/22 15:10 BP 136/88 02/27/22 15:10 Pulse Ox 98 02/27/22 15:10 O2 Del Method 02/27/22 15:10 BMI result Body Mass Index 49.5 vital signs have been reviewed as normal and appeared to be correct. Blood pressure normal Heart rate normal. Respiration rate normal. Temperature normal. Oxygen saturation normal. Appearance: Alert. Oriented X3. No acute distress. Head: Normal external exam. Normocephalic. Atraumatic. Eyes: PERRLA. EOMI. Conjunctiva and sclera normal. Eyelids normal. ENT: Pharynx normal. Uvula midline. Moist mucous membranes. Neck: Normal inspection. Neck supple. FROM. CVS: Normal heart rate and rhythm. Respiratory: No respiratory distress. Painless inspiration. Skin: Skin warm and dry. Normal skin color. Normal skin turgor. No rashes/lesions/lacerations noted. Extremities: Patient with tenderness palpation to the left proximal/mid humerus /AC joint. Although has full range of motion of the left AC joint/left elbow joint. No obvious ligamentous or tendon injury noted. No obvious deformities to the left shoulder/ elbow joint. Patient does have tenderness palpation to the lateral aspect of the left wrist and tenderness to the left hand at the 5th metacarpal and 5th digit at the proximal /mid and distal aspect of the 5th digit. No obvious ligamentous or tendon injury noted to all digits/ hand and wrist joint. Otherwise all other extremities exhibit normal range of motion nontender Neuro: Oriented X 3. No motor deficit. No sensory deficit. Reflexes normal. Normal steady gait. No focal neuro deficits noted. Vascular: + radial pulses/+ 2 distal pedal pulses/+2 dorsalis pedis b/l. Normal cap refill. No cyanosis noted to upper extremity nails and lower extremity toes nails. Course Course Course Narrative: 17pm - 51-year-old male presenting to the ED with complaints of left shoulder pain/left hand and wrist/ 5th digit pain after he had a mechanical fall yesterday while he was at home. He reports that he was cleaning his AC on his steps and he had some sandals on and due to the water that he was cleaning his AC from he slipped and fell down half a flight of steps landing on his left shoulder/left hand and wrist and since then has been having pain. Will obtain x-ray of left hand/ wrist /shoulder joint provide 5 mg of oxycodone and re-evaluate. Reevaluation(s) Reevaluation #1: Left humerus x-ray negative for any acute processes. They mention if the patient has elbow pain then do a dedicated elbow x-ray although patient does not have any elbow pain and has full range of motion of the elbow therefore no x- ray indicated. Hand and wrist x-ray negative. Therefore will DC home with symptomatic treatment instructions return if any new or worsening symptoms to follow up with primary care provider. Patient understands agrees with this plan. Time: 17:42 Procedures Orthopedic Splinting/Casting Injury #1: Side: left Upper Extremity Injury Location: wrist and hand Upper Extremity Immobilizer: wrist splint MDM - Fall Medical Records Attestation: I reviewed the patient's medical records. Imaging Data Left hand/ wrist/ humerus x-ray: Attestation: I personally reviewed and interpreted this imaging study as follows: Radiologist's impression: FINDINGS: Views of the left humerus do not definitely demonstrate acute fracture or dislocation. No true lateral view was obtained and I cannot comment on any possible effusion. If there is question of an elbow fracture then dedicated elbow study is recommended. There is a small olecranon spur at site of insertion of the triceps tendon where there is small amount of edematous change. The supposed lateral view is not a true lateral study and is a nonstandard view there is a 2 mm bony density seen about the dorsal aspect of the proximal humerus which appears well circumscribed and likely represents a secondary ossification center. There is no evidence of acute fracture or dislocation of the left hand or wrist. Joint spaces are maintained. There is some spurring seen at the first carpal joint. There is some soft tissue swelling seen about the dorsum of the metacarpal phalangeal joints. XR/XR humerus LT IMPRESSION: Limited evaluation but without definite glenohumeral fracture identified. If there is question of an elbow fracture then dedicated elbow study is recommended. ? No evidence of acute fracture or dislocation of the left hand or wrist. ? Discharge Plan Discharge Clinical Impression: Fall, Sprain of left ulnohumeral joint, Sprain of other part of left wrist and hand, initial encounter Patient Disposition: Home, Self-Care Instructions: Hand Sprain (ED) Prescriptions: New oxycodone 5 mg tablet 5 mg PO Q6H PRN (Reason: pain) Qty: 14 0RF Rx Instructions: Partial Fill upon patient request. acetaminophen [Tylenol Extra Strength] 500 mg tablet 1,000 mg PO QID PRN (Reason: fever or pain) Qty: 14 0RF ibuprofen 800 mg tablet 800 mg PO Q8H PRN (Reason: pain) Qty: 14 0RF No Action oxycodone 5 mg tablet 5 mg PO Q4H PRN (Reason: pain) Qty: 25 0RF oxycodone-acetaminophen [Percocet] 5-325 mg tablet 1 tab PO TID PRN (Reason: pain) Qty: 20 0RF tamsulosin 0.4 mg capsule 0.4 mg PO BEDTIME 90 Days Qty: 90 1RF oxycodone-acetaminophen [Percocet] 5-325 mg tablet 1 tab PO BID PRN (Reason: pain) Qty: 20 0RF tramadol 50 mg tablet 50 mg PO Q6H PRN (Reason: pain) Qty: 20 0RF oxycodone-acetaminophen [Percocet] 5-325 mg tablet 1 tab PO TID PRN (Reason: pain) Qty: 20 0RF levothyroxine 50 mcg Tablet 50 mcg PO DAILY docusate sodium [Colace] 100 mg Capsule 100 mg PO BID omeprazole 20 mg Capsule,Delayed Release(Dr/Ec) 20 mg PO DAILY montelukast [Singulair] 10 mg Tablet 10 mg PO BEDTIME loratadine 10 mg Tablet 10 mg PO DAILY escitalopram oxalate [Lexapro] 10 mg Tablet 10 mg PO DAILY albuterol sulfate 90 mcg/actuation Hfa Aerosol Inhaler 2 puff INHALATION Q4H PRN (Reason: ASTHMA) fluticasone propion-salmeterol [Wixela Inhub] 500-50 mcg/dose blister with device 1 puff inhalation BID hydrochlorothiazide 25 mg tablet 25 mg PO DAILY ipratropium bromide 0.03 % spray,non-aerosol 2 spray intranasal TID PRN (Reason: congestion) amoxicillin-pot clavulanate [Augmentin] 500-125 mg tablet 1 tab PO Q12H Qty: 10 0RF amoxicillin-pot clavulanate [Augmentin] 875-125 mg tablet 1 tab PO Q12H 7 Days Qty: 14 0RF naproxen 500 mg tablet 500 mg PO BID PRN (Reason: pain) Qty: 20 0RF hynnpcfxiz-hjdrrhyslhflh-gvjf [Fioricet] 50-300-40 mg capsule 1 cap PO Q6H PRN (Reason: pain) Qty: 10 0RF doxycycline monohydrate 100 mg capsule 100 mg PO BID 7 Days Qty: 14 0RF ibuprofen 400 mg tablet 400 mg PO Q6H PRN (Reason: pain) Qty: 20 0RF carisoprodol [Soma] 350 mg tablet 350 mg PO TID PRN (Reason: muscle pain) 3 Days Qty: 10 0RF oxycodone-acetaminophen [Percocet] 5-325 mg tablet 1 tab PO Q6H PRN (Reason: pain) Qty: 10 0RF naproxen 500 mg tablet 500 mg PO BID PRN (Reason: pain) Qty: 20 0RF cyclobenzaprine 10 mg tablet 10 mg PO BID PRN (Reason: muscle spasm) Qty: 10 0RF tramadol 50 mg tablet 50 mg PO BID PRN (Reason: pain) Qty: 8 0RF polyethylene glycol 3350 [Miralax] 17 gram/dose powder 17 g PO BID Qty: 119 0RF oxycodone-acetaminophen [Percocet] 5-325 mg tablet 1 tab PO TID PRN (Reason: pain) Qty: 9 0RF Rx Instructions: side effect is drowsiness. Do not take at work or while driving. prednisone 20 mg tablet 20 mg PO DAILY 12 Days Qty: 26 0RF Rx Instructions: Take 3 tablets for 5 days THEN; Take 2 tablets for 4 days THEN; Take 1 tablet for 3 days Referrals: Patricia Berry MD [Primary Care Provider] - 1 week Stand Alone Forms: Work/School Release
[2022-02-27] MEDS: oxyCODONE HCl Immed Release 5 MG TABLET PO (17:15)
== END 2022-02-27 17:59 | disposition home or self-care (01) ==
PROVIDERS: Emergency Provider Internal Medicine; PCP Family Medicine
DX: S53.422A Ulnohumeral (joint) sprain of left elbow, initial encounter (principal); S63.592A Other specified sprain of left wrist, initial encounter; W10.8XXA Fall (on) (from) other stairs and steps, initial encounter; E66.9 Obesity, unspecified; Z68.42 Body mass index [BMI] 45.0-49.9, adult; Y93.H9 Activity, other involving exterior property and land maintenance, building and construction; Y92.018 Other place in single-family (private) house as the place of occurrence of the external cause; Y99.9 Unspecified external cause status
CPT/HCPCS: 73060; 73110; 73130; 99283

== ENCOUNTER 2022-03-30 12:44 | Outpatient (REF) | payer OTHER, SELFPAY ==
--- NOTE | ~2022-03-30 | XR_ITS ---
EXAMINATION: XR ANKLE-BILATERAL XR FOOT-BILATERAL XR SI JOINTS CLINICAL INFORMATION: Bilateral ankle and foot pain. Lumbago with sciatica. COMPARISON: None TECHNIQUE: 2 views each of both ankles and 3 views each of both feet and frontal and oblique views of both SI joints are obtained. FINDINGS: Right ankle: The bony alignments are intact. Articular margins, joint space appear unremarkable. The soft tissues are unremarkable. Right foot: Postsurgical changes are noted at the head of the second and third metatarsal. Mild osteoarthrosis at the first MTP joint. Mild osteoarthrosis of the tarsometatarsal joint of the fourth and fifth toes. Small posterior plantar calcaneal spur. Left ankle: The bony alignments are intact. Mild osteoarthrosis of the tibiotalar joint. Soft tissues are unremarkable. Left foot: Postsurgical changes are noted at the head of the second and third metatarsal. Mild osteoarthrosis of the first MTP joint. Mild osteoarthrosis at the second and third MTP joints. Small posterior plantar calcaneal spur and enthesopathy at the insertional site of the Achilles tendon to the calcaneus. SI joints: The bony alignments are intact. The cortices are intact. Both SI joints are symmetric with normal-appearing articular margins. No evidence of any effusion. No evidence of any articular or subarticular erosion. XR/XR sacroiliac joint 1-2V IMPRESSION: 1. Radiographically unremarkable right ankle. 2. 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 3. Postsurgical changes at the head of the second and third metatarsal of both feet with superimposed osteoarthrosis at the MTP joints of the left second and third toes. 4. Mild osteoarthrosis of the right first MTP joint and tarsometatarsal joints of the right fourth and fifth toes. 5. Mild osteoarthrosis of the left first through third MTP joints. 6. Bilateral small posterior plantar calcaneal spur. 7. Enthesopathy at the insertional site of the Achilles tendon to the calcaneus on the left. 8. Radiographically unremarkable SI joints.
[2022-03-30 16:17] LABS: MANUAL DIFF FLAG NO
[2022-03-30 16:29] LABS: Basophils Percent Auto 0.3 % (0-2); Eosinophils Percent Auto 0.4 % (0-4); Hematocrit 43.4 % (42.0-52.0); Hemoglobin 14.3 g/dl (14.0-18.0); Imm Gran Pct Auto 0.7 % (0.0-0.4); Lymphocytes Absolute Auto 2.3 X10*3/uL (1.2-4.9); Lymphocytes Percent Auto 17.2 % (20-40); Mean Corpuscular HGB Conc 32.9 g/dl (31.0-36.0); Mean Corpuscular Hemoglobin 28.7 pg (27.0-33.0); Mean Platelet Volume 8.6 fL (9.4-12.4); Monocytes Absolute Auto 1.3 X10*3/uL (0.1-1.2); Monocytes Percent Auto 9.3 % (2-11); Neutrophils Absolute Auto 9.8 x10*3/uL (2.0-8.3); Neutrophils Percent Auto 72.1 % (45-73); Platelet Count 337 X10*3/uL (160-400); Red Blood Count 4.99 X10*6/uL (4.60-5.80); Red Cell Distribution Width 14.5 % (11.0-16.0); White Blood Count 13.6 X10*3/uL (4.8-10.8)
[2022-03-30 16:30] LABS: Eosinophils Absolute Auto 0.1 X10*3/uL (0.0-0.4)
[2022-03-30 17:13] LABS: Erythrocyte Sedimentation Rate 71 MM/HR (0-15)
[2022-03-30 17:17] LABS: C Reactive Protein 2.81 mg/dL (< or = 0.50); Uric Acid 8.9 mg/dL (3.4-7.0)
[2022-03-30 17:27] LABS: Rheumatoid Factor < 15.0 IU/mL (<15.0)
[2022-03-30 17:38] LABS: Appearance Urine Clear; Color Urine Yellow; Glucose Urine UA Negative (Negative); Leukocyte Esterase Urine Negative (Negative); Nitrite Urine Negative (Negative); PH 5.5 (5.0-8.0); Specific Gravity - Urine 1.025 (1.005-1.025); Urine Blood Negative (Negative); Urine Ketones Negative (Negative); Urine Protein 30 (1+) mg/dL (Neg-Trace)
[2022-03-30 17:41] LABS: Bacteria Urine None Seen (None Seen); Hyaline Casts Urine 0-2 /LPF (0-2); RBC Urine 0-2 /HPF (0-2); Squamous Epithelial Cell Urine 0-2 /HPF (0-2); WBC Urine 0-5 /HPF (0-5)
[2022-04-02 08:11] LABS: HBc Num1 0.07 S/CO (0.00-0.79); HBsAGNum1 0.19 S/CO (0.00-0.99); HIV AB/AG Nonreactive (Nonreactive); HIV Num 1 0.04 S/CO (0.00-0.99); Hepatitis B Core Antibody Nonreactive (Nonreactive); Hepatitis B Surface Antigen Negative (Negative); ~HepC Num1 0.08 S/CO (0.00-0.79); ~Hepatitis B Surface Antibody NONREACTIVE (Nonreactive); ~Hepatitis C Antibody Nonreactive (Nonreactive)
[2022-04-02 16:33] LABS: Cyclic Citrullinated Peptide <16 UNITS
[2022-04-03 11:06] LABS: IgA 216 mg/dL (47-310); IgG 1673 mg/dL (600-1640); IgM 50 mg/dL (50-300)
[2022-04-04 00:51] LABS: Prot Elec - Albumin 4.1 g/dL (3.8-4.8); Prot Elec - Alpha1 0.3 g/dL (0.2-0.3); Prot Elec - Alpha2 0.9 g/dL (0.5-0.9); Prot Elec - Beta 1 0.6 g/dL (0.4-0.6); Prot Elec - Beta 2 0.5 g/dL (0.2-0.5); Prot Elec - Gamma 1.5 g/dL (0.8-1.7); Prot Elec - Total Protein 7.9 g/dL (6.1-8.1)
[2022-04-04 07:20] LABS: Hepatitis A Antibody IgM 0.12 Index (0-0.79); ~Hepatitis A Antibody IgM Nonreactive (Nonreactive)
[2022-04-04 08:46] LABS: HLA B27 Negative (Negative)
== END 2022-03-30 12:45 | disposition home or self-care (01) ==
LOC: HO.XRAY 12:44
PROVIDERS: PCP Family Medicine; Visit Provider Student in an Organized Health Care Education/Training Program
DX: Z11.4 Encounter for screening for human immunodeficiency virus [HIV] (principal); Z11.59 Encounter for screening for other viral diseases; M25.571 Pain in right ankle and joints of right foot; M25.572 Pain in left ankle and joints of left foot; M54.40 Lumbago with sciatica, unspecified side; R70.0 Elevated erythrocyte sedimentation rate; R59.0 Localized enlarged lymph nodes; R31.9 Hematuria, unspecified
CPT/HCPCS: 36415; 72200; 73600; 73620; 81001; 82784; 84165; 84550; 85025; 85652; 86140; 86200; 86334; 86431; 86704; 86706; 86709; 86803; 86812; 87340; 87389; 99202

== ENCOUNTER → 2022-04-04 12:08 | Outpatient (BNVA) | payer OTHER, SELFPAY | PROVIDERS: PCP Family Medicine; Visit Provider Surgery | DX: K43.2 Incisional hernia without obstruction or gangrene (principal); E66.01 Morbid (severe) obesity due to excess calories; Z68.42 Body mass index [BMI] 45.0-49.9, adult | CPT/HCPCS: 99212 ==

== ENCOUNTER 2022-04-06 18:05 | Emergency (ER) | payer OTHER, SELFPAY ==
--- NOTE | ~2022-04-06 | CT_ITS ---
EXAMINATION: CT ABDOMEN AND PELVIS WITH CONTRAST CLINICAL INFORMATION: Abdominal pain, fever COMPARISON: 05/18/2021 TECHNIQUE: Multidetector volumetric images were obtained from the superior aspect of the liver through the pubic symphysis following administration 100 mL of Omnipaque 350 intravenous contrast. Sagittal and coronal reformatted images were obtained on the technologist's workstation. Oral contrast: No This CT examination was performed using dose optimization techniques as appropriate, variously including the following: *Automated exposure control *Adjustment of mA and/or kV according to patient size (this includes techniques or standardized protocols for targeted exams where dose is matched to indication/reason for exam; i.e. extremities or head) *Use of iterative reconstruction technique DLP: 1290 mGy-cm FINDINGS: LUNG BASES: There are mild posterior right lower lobe opacities. LIVER, GALLBLADDER, AND BILIARY TREE: The liver is normal in size, shape, and attenuation. No focal hepatic lesion or biliary ductal dilatation is present. The gallbladder is unremarkable with no evidence of radiopaque gallstones, gallbladder wall thickening, or obvious pericholecystic inflammatory changes. PANCREAS: Unremarkable. SPLEEN: Unremarkable. ADRENAL GLANDS: Unremarkable. KIDNEYS AND URETERS: Mildly dilated left renal pelvis, similar to prior without obstructing calculus. Bilateral nephrograms are symmetric. No right hydronephrosis. BLADDER: Unremarkable. GASTROINTESTINAL TRACT: No convincing evidence of bowel obstruction or significant wall thickening. Suture line is present in the sigmoid colon. The appendix is unremarkable. No free fluid or free air is seen. ABDOMINAL WALL: Redemonstrated rectus diastases with bulging of the midline fascia, similar to prior. Redemonstrated lateral left abdominal wall hernia containing a few loops of small bowel, without convincing evidence for associated obstruction; hernia size is mildly increased from prior. LYMPH NODES: Normal. VASCULAR: Unremarkable. PELVIC VISCERA: Unremarkable. OSSEOUS STRUCTURES: Bilateral L5 pars defects with anterolisthesis of L5 on S1. Multilevel degenerative disc disease and endplate osteophytes. CT/CT abdomen pelvis w con IMPRESSION: 1. Lateral left abdominal wall hernia containing a few loops of small bowel, without convincing evidence for obstruction. Hernia size has mildly increased from prior. 2. Mild left hydronephrosis without obstructing calculus, similar to prior. 3. Mild posterior right lower lobe pulmonary opacities which could reflect atelectasis or possibly early developing consolidation in the proper clinical setting.
[2022-04-06 20:13] VITALS: BP 122/80; PULSE 65; RESP 16; TEMP 36.7; O2SAT 97; BMI 47.9
[2022-04-06 20:48] LABS: MANUAL DIFF FLAG NO
[2022-04-06 20:49] LABS: Basophils Percent Auto 0.3 % (0-2); Eosinophils Absolute Auto 0.1 X10*3/uL (0.0-0.4); Eosinophils Percent Auto 0.8 % (0-4); Hematocrit 41.1 % (42.0-52.0); Hemoglobin 13.6 g/dl (14.0-18.0); Imm Gran Abs Auto 0.09 X10*3/uL (0.00-0.03); Imm Gran Pct Auto 0.6 % (0.0-0.4); Lymphocytes Absolute Auto 2.8 X10*3/uL (1.2-4.9); Lymphocytes Percent Auto 18.5 % (20-40); Mean Corpuscular HGB Conc 33.1 g/dl (31.0-36.0); Mean Corpuscular Hemoglobin 29.1 pg (27.0-33.0); Mean Platelet Volume 8.7 fL (9.4-12.4); Monocytes Absolute Auto 1.1 X10*3/uL (0.1-1.2); Monocytes Percent Auto 7.2 % (2-11); Neutrophils Absolute Auto 11.1 x10*3/uL (2.0-8.3); Neutrophils Percent Auto 72.6 % (45-73); Platelet Count 326 X10*3/uL (160-400); Red Blood Count 4.67 X10*6/uL (4.60-5.80); Red Cell Distribution Width 14.6 % (11.0-16.0); White Blood Count 15.2 X10*3/uL (4.8-10.8)
[2022-04-06 20:50] LABS: Appearance Urine Clear; Color Urine Yellow; Glucose Urine UA Negative (Negative); Leukocyte Esterase Urine Small (1+) (Negative); Nitrite Urine Negative (Negative); PH 5.5 (5.0-8.0); Urine Blood Negative (Negative); Urine Ketones Negative (Negative); Urine Protein Negative (Neg-Trace)
[2022-04-06 20:53] LABS: Bacteria Urine None Seen (None Seen); Hyaline Casts Urine 0-2 /LPF (0-2); RBC Urine 0-2 /HPF (0-2); Squamous Epithelial Cell Urine 0-2 /HPF (0-2); UACC Culture Trigger YES
[2022-04-06 21:05] LABS: Alanine Aminotransferase 24 U/L (0-40); Alkaline Phosphatase 85 U/L (39-117); Anion Gap 14 (12-20); Aspartate Amino Transferase 21 U/L (5-37); Bilirubin Direct 0.2 mg/dL (0.0-0.5); Bilirubin Total 0.5 mg/dL (0.0-1.0); Blood Urea Nitrogen 13 mg/dL (9-16); Calcium 8.9 mg/dL (8.4-10.2); Carbon Dioxide 28 mmol/L (22-29); Chloride 101 mmol/L (96-108); Creatinine Clr Calc Pharmacy 144.6; Estimated Glomerular Filt Rate > 60; Glucose Random 88 mg/dL (60-115); Lipase 24 U/L (8-78); Potassium 3.8 mmol/L (3.3-5.1); Sodium 139 mmol/L (135-145); Total Protein 7.4 g/dL (6.5-8.0)
[2022-04-06 23:40] VITALS: BP 122/67; PULSE 66; RESP 16; TEMP 36.7; O2SAT 94
--- NOTE | 2022-04-06 23:56 | ED_ITS ---
HPI - Abdominal Pain General Chief Complaint: Abdominal Pain <Mayra Patiño NP - Last Filed: 04/07/22 02:08> Stated Complaint: hernia/abd pain/nausea <Mayra Patiño NP - Last Filed: 04/07/22 02:08> Time Seen by Provider: 04/07/22 00:11 <Mayra Patiño NP - Last Filed: 04/07/22 02:08> Source: patient <Mayra Patiño NP - Last Filed: 04/07/22 02:08> Mode of arrival: ambulatory <Mayra Patiño NP - Last Filed: 04/07/22 02:08> Limitations: no limitations <Mayra Patiño NP - Last Filed: 04/07/22 02:08> History of Present Illness HPI narrative: 51-year-old male presents for left lower quadrant abdominal pain, poor p.o. intake and has not had a bowel movement or passed flatus and 2 days. He noticed a hard bulging to the left lower quadrant at his prior hernia repair site. He was evaluated by Dr. Nowak about 2 days ago, and states that he was supposed to get a CT scan of the abdomen pelvis. He does have some nausea, but does not report vomiting, chest pain or pressure, palpitations, diaphoresis, fatigue, fevers or chills. <MICHELLE Price Last Filed: 04/07/22 02:08> MD elicited complaint: abdominal pain <Mayra Patiño NP - Last Filed: 04/07/22 02:08> Pertinent past history: other (Hernia repair with colostomy and small-bowel obstruction 1 year ago) <Mayra Patiño NP - Last Filed: 04/07/22 02:08> Onset (ago): day(s) (2) <Mayra Patiño NP - Last Filed: 04/07/22 02:08> Pain Consistency: constant and intermittent <Mayra Patiño NP - Last Filed: 04/07/22 02:08> Location: LLQ <MICHELLE Price Last Filed: 04/07/22 02:08> Severity: severe <Mayra Patiño NP - Last Filed: 04/07/22 02:08> Pain scale (0-10): 8 <Mayra Patiño NP - Last Filed: 04/07/22 02:08> Quality: cramping, aching and fullness <Mayra Patiño NP - Last Filed: 04/07/22 02:08> Radiation: LLQ <Mayra Patiño NP - Last Filed: 04/07/22 02:08> Migration to: no migration <Mayra Patiño NP - Last Filed: 04/07/22 02:08> Exacerbating factors: eating and movement <Mayra Patiño NP - Last Filed: 04/07/22 02:08> Relieving factors: nothing <Mayra Patiño NP - Last Filed: 04/07/22 02:08> Context: history of similar episodes <Mayra Patiño NP - Last Filed: 04/07/22 02:08> Associated symptoms: nausea, constipation and anorexia <Mayra Patiño NP - Last Filed: 03/13 03/02 02:08> Related Data Home Medications: Home Medications Medication Instructions Recorded Confirmed ipratropium bromide 21 mcg (0.03 2 spray intranasal TID PRN 05/25/20 04/04/22 %) nasal spray congestion albuterol sulfate 90 mcg/actuation 2 puff inhalation Q6H PRN 03/26/22 04/04/22 aerosol inhaler (ProAir HFA) Respiratory Distress docusate sodium 100 mg capsule 100 mg PO DAILY 03/26/22 04/04/22 (Colace) epinephrine 0.3 mg/0.3 mL 0.3 mg IM Q4H PRN Anaphylaxis 03/26/22 04/04/22 injection, auto-injector (EpiPen) escitalopram oxalate 10 mg tablet 10 mg PO DAILY 03/26/22 04/04/22 (Lexapro) fluticasone 500 mcg-salmeterol 50 1 inh inhalation BID 03/26/22 04/04/22 mcg/dose blistr powdr for inhalation (Wixela Inhub) hydrochlorothiazide 25 mg tablet 25 mg PO DAILY 03/26/22 04/04/22 ibuprofen 800 mg tablet 800 mg PO Q6H 03/26/22 04/04/22 levothyroxine 75 mcg capsule 75 mcg PO DAILY 03/26/22 04/04/22 loratadine 10 mg tablet (Claritin) 10 mg PO DAILY 03/26/22 04/04/22 montelukast 10 mg tablet 10 mg PO DAILY 03/26/22 04/04/22 (Singulair) naloxone 4 mg/actuation nasal 1 spray intranasal Q2M 03/26/22 04/04/22 spray (Narcan) omeprazole 20 mg capsule,delayed 20 mg PO DAILY 03/26/22 04/04/22 release terbinafine HCl 1 % topical cream 1 appl topical BID 03/26/22 04/04/22 (Antifungal (terbinafine)) tramadol 50 mg tablet 50 mg PO BID PRN Pain, Moderate 03/26/22 04/04/22 Previous Rx's Medication Instructions Recorded doxycycline monohydrate 100 mg 100 mg PO BID 7 days #14 caps 11/13/20 capsule tamsulosin 0.4 mg capsule 0.4 mg PO BEDTIME 90 days #90 caps 12/27/20 carisoprodol 350 mg tablet (Soma) 350 mg PO TID PRN muscle pain 3 01/06/21 days #10 tabs cyclobenzaprine 10 mg tablet 10 mg PO BID PRN muscle spasm #10 01/28/21 tabs naproxen 500 mg tablet 500 mg PO BID PRN pain #20 tabs 01/28/21 polyethylene glycol 3350 17 17 g PO BID #119 grams 05/19/21 gram/dose oral powder (Miralax) acetaminophen 500 mg tablet 1,000 mg PO QID PRN fever or pain 02/27/22 (Tylenol Extra Strength) #14 tabs oxycodone 5 mg tablet 5 mg PO Q6H PRN pain #14 tabs 02/27/22 <Mayra Patiño NP - Last Filed: 04/07/22 02:08> Allergies/Adverse Reactions: Allergies Allergy/AdvReac Type Severity Reaction Status Date / Time egg [EGGS] Allergy Unknown ITCHY Verified 04/04/22 12:16 THROAT,SWELLING LIPS JANELL cooking spray Allergy Unknown swelling Uncoded 04/04/22 12:16 in mouth/tongue <Mayra Patiño NP - Last Filed: 04/07/22 02:08> Review of Systems Review of Systems Constitutional: No Fever, No Chills ENT/Mouth: No Ear Pain, No Hoarseness, No sore throat Eyes: No Eye Pain, No Swelling, No Redness, No Foreign Body Cardiovascular: No Chest Pain, No SOB Respiratory: No Cough, No Dyspnea Gastrointestinal: Positive Nausea, No Vomiting, No Diarrhea, positive abdominal Pain Genitourinary: No Dysuria, No Hematuria Musculoskeletal: No joint pain, No Myalgias, No Joint Swelling Skin: No Skin lacerations, No rash Neuro: No Weakness, No Numbness, No Paresthesias, No Loss of Consciousness, No Dizziness, No Headache Psych: No Anxiety/Panic, No Depression Heme/Lymph: no easy bruising, no Lymphadenopathy Endocrine: No Polyuria, No Polydipsia <Mayra Patiño NP - Last Filed: 04/07/22 02:08> Yes all other systems are reviewed and are negative <Mayra Patiño NP - Last Filed: 04/07/22 02:08> [facility] Past Medical History Attestation statement: The following information was validated with the patient. <Mayra Patiño NP - Last Filed: 04/07/22 02:08> Source: old records reviewed <Mayra Patiño NP - Last Filed: 04/07/22 02:08> Medical History: Medical History Anxiety Asthma Incisional hernia Incisional hernia Incisional pain Morbid obesity due to excess calories Obesity Obstructive sleep apnea Open wound anterior abdominal wall SBO (small bowel obstruction) <Mayra Patiño NP - Last Filed: 04/07/22 02:08> Surgical History: Surgical History H/O hernia repair Hx of carpal tunnel repair Status post Hattie's procedure <Mayra Patiño NP - Last Filed: 04/07/22 02:08> Family History Family History: Family History Mother Arthritis Father Arthritis Maternal Grandfather History of prostate cancer Maternal Grandmother History of breast cancer <Mayra Patiño NP - Last Filed: 04/07/22 02:08> Social History Social History: Social History Household Members: Spouse Housing: House Do you presently have visiting nurse or other home services: No Alcohol intake: former Year quit: 2019 Patient Tobacco Use Status: Former Tobacco user Quit Date: 20 years ago Second Hand Smoke Exposure: No Substance Use Type: Marijuana Advance Directives: No Advance Directives Information Provided: No service: No Current occupational status: disabled 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 [employer] <Mayra Patiño NP - Last Filed: 04/07/22 02:08> Physical Exam ED Vital Signs: Vital Signs - 24 hr 04/06/22 20:13 04/06/22 23:40 04/07/22 01:07 Temperature 98.0 F 98.1 F Pulse Rate 65 66 Respiratory Rate 16 16 16 Blood Pressure 122/80 122/67 Pulse Oximetry 97 94 Oxygen Delivery Method Room Air Room Air 04/07/22 03:16 04/07/22 03:22 Temperature 97.9 F 97.9 F Pulse Rate 58 58 Respiratory Rate 16 16 Blood Pressure 121/57 L 121/57 L Pulse Oximetry 96 Oxygen Delivery Method Room Air BMI result Body Mass Index 47.9 <Mayra Patiño NP - Last Filed: 04/07/22 02:08> Vital Signs - 24 hr 04/06/22 20:13 04/06/22 23:40 04/07/22 01:07 Temperature 98.0 F 98.1 F Pulse Rate 65 66 Respiratory Rate 16 16 16 Blood Pressure 122/80 122/67 Pulse Oximetry 97 94 Oxygen Delivery Method Room Air Room Air 04/07/22 03:16 04/07/22 03:22 Temperature 97.9 F 97.9 F Pulse Rate 58 58 Respiratory Rate 16 16 Blood Pressure 121/57 L 121/57 L Pulse Oximetry 96 Oxygen Delivery Method Room Air BMI result Body Mass Index 47.9 <Sergio Cummins MD - Last Filed: 04/07/22 03:54> Appearance: Alert. Oriented X3. Moderate distress. Eyes: Pupils equal, round and reactive to light. EOMI. Sclera nonicteric. ENT: Pharynx normal. Neck: Normal inspection. Neck supple. CVS: Normal heart rate and rhythm. Apical pulse equal pulses to extremities. Respiratory: No respiratory distress. Breath sounds normal. Abdomen: Soft and left lower quadrant and suprapubic tenderness to palpation. No palpable masses. Chronic wounds noted at the 5 o'clock position in the to the umbilicus. Skin: Skin warm and dry. Normal skin color. Normal skin turgor. Extremities: No lower extremity edema. Gait well-balanced and well coordinated. Neuro: No motor deficit. No sensory deficit. Cranial nerves 2-12 intact. <Mayra Patiño NP - Last Filed: 04/07/22 02:08> Course Course Course Narrative: 51-year-old male presents with left lower quadrant abdominal pain, poor p.o. intake, inability to pass stools or flatus for approximately 2 days. He did have a large bulge to the left lower quadrant, suspected to be a hernia from a prior surgery. At this time he does not have palpable hernia, but does have diffuse left lower quadrant and suprapubic pain. He does have a chronic wound at the 5 o'clock position approximately 2 in from the umbilicus. Labs were drawn while patient was in the emergency department waiting room, white count is 15.9, low likelihood for sepsis at this time, patient is afebrile, vital signs are stable and within normal limits, and no other indication of organ dysfunction. patient is visibly uncomfortable, order for Zofran, morphine, fluids, and CT abdomen pelvis with contrast. 01:50 order for Zosyn, lactic and cultures. Sign-out to Dr. Pretty. <Mayra Patiño NP - Last Filed: 04/07/22 02:08> MDM - Abdominal Pain MDM Narrative Medical decision making narrative: Patient's CT scan : 1.? Lateral left abdominal wall hernia containing a few loops of small bowel, without convincing evidence for obstruction. Hernia size has mildly increased from prior. 2.? Mild left hydronephrosis without obstructing calculus, similar to prior.? 3.? Mild posterior right lower lobe pulmonary opacities which could reflect atelectasis or possibly early developing consolidation in the proper clinical setting. ?Will discharge patient home advised to follow up with surgeon <Sergio Cummins MD - Last Filed: 04/07/22 03:54> Differential Diagnosis Differential diagnosis: Likely abdominal pain, bowel perforation, diverticulitis and small bowel obstruction <Mayra Patiño NP - Last Filed: 04/07/22 02:08> Differential diagnosis narrative:: Hernia <Mayra Patiño STAFF SERVICES MANAGER - Last Filed: 04/07/22 02:08> Medical Records Attestation: I reviewed the patient's medical records. <Mayra Patiño STAFF SERVICES MANAGER - Last Filed: 04/07/22 02:08> Lab Data Attestation: I reviewed the patient's lab results. <Mayra Patiño STAFF SERVICES MANAGER - Last Filed: 04/07/22 02:08> Result diagrams: : 04/06/22 20:25 04/06/22 20:25 <Mayra Patiño STAFF SERVICES MANAGER - Last Filed: 04/07/22 02:08> Labs: Lab Results 04/06/22 04/06/22 04/06/22 Range/Units 20:25 20:25 20:25 WBC 15.2 H (4.8-10.8) X10*3/uL RBC 4.67 (4.60-5.80) X10*6/uL Hgb 13.6 L (14.0-18.0) g/dl Hct 41.1 L (42.0-52.0) % MCV 88.0 (80.0-98.0) fL MCH 29.1 (27.0-33.0) pg MCHC 33.1 (31.0-36.0) g/dl RDW 14.6 (11.0-16.0) % Plt Count 326 (160-400) X10*3/uL MPV 8.7 L (9.4-12.4) fL Immature Gran % (Auto) 0.6 H (0.0-0.4) % Neut % (Auto) 72.6 (45-73) % Lymph % (Auto) 18.5 L (20-40) % [place] % (Auto) 7.2 (2-11) % Eos % (Auto) 0.8 (0-4) % Baso % (Auto) 0.3 (0-2) % Lymph # (Auto) 2.8 (1.2-4.9) X10*3/uL [place] # (Auto) 1.1 (0.1-1.2) X10*3/uL Eos # (Auto) 0.1 (0.0-0.4) X10*3/uL Baso # (Auto) 0.0 (0.0-0.2) X10*3/uL Abs Immat Gran (auto) 0.09 H (0.00-0.03) X10*3/uL Absolute Neuts (auto) 11.1 H (2.0-8.3) x10*3/uL Absolute Nucleated RBC 0.000 (0.0-0.012) X10*3/uL Nucleated RBC % (auto) 0.0 (0.0-0.2) /100WBC Sodium 139 (135-145) mmol/L Potassium 3.8 (3.3-5.1) mmol/L Chloride 101 (96-108) mmol/L Carbon Dioxide 28 (22-29) mmol/L Anion Gap 14 (12-20) BUN 13 (9-16) mg/dL Creatinine 0.94 (0.5-1.4) mg/dL Estim Creat Clear Calc 144.6 Estimated GFR > 60 Random Glucose 88 (60-115) mg/dL Lactic Acid (0.5-2.0) mmol/L Calcium 8.9 (8.4-10.2) mg/dL Total Bilirubin 0.5 (0.0-1.0) mg/dL Direct Bilirubin 0.2 (0.0-0.5) mg/dL AST 21 (5-37) U/L ALT 24 (0-40) U/L Alkaline Phosphatase 85 (39-117) U/L Total Protein 7.4 (6.5-8.0) g/dL Albumin 4.0 (3.5-5.0) g/dL Lipase 24 (8-78) U/L Urine Color Yellow Urine Appearance Clear Urine pH 5.5 (5.0-8.0) Ur Specific [place] 1.020 (1.005-1.025) Urine Protein Negative (Neg-Trace) mg/dL Urine Glucose (UA) Negative (Negative) mg/dL Urine Ketones Negative (Negative) mg/dL Urine Blood Negative (Negative) Urine Nitrite Negative (Negative) Ur Leukocyte Esterase Small (1+) H (Negative) Urine RBC 0-2 (0-2) /HPF Urine WBC 11-20 H (0-5) /HPF Ur Squamous Epith Cells 0-2 (0-2) /HPF Urine Bacteria None Seen (None Seen) Hyaline Casts 0-2 (0-2) /LPF 04/07/22 Range/Units 00:46 WBC (4.8-10.8) X10*3/uL RBC (4.60-5.80) X10*6/uL Hgb (14.0-18.0) g/dl Hct (42.0-52.0) % MCV (80.0-98.0) fL MCH (27.0-33.0) pg MCHC (31.0-36.0) g/dl RDW (11.0-16.0) % Plt Count (160-400) X10*3/uL MPV (9.4-12.4) fL Immature Gran % (Auto) (0.0-0.4) % Neut % (Auto) (45-73) % Lymph % (Auto) (20-40) % [place] % (Auto) (2-11) % Eos % (Auto) (0-4) % Baso % (Auto) (0-2) % Lymph # (Auto) (1.2-4.9) X10*3/uL [place] # (Auto) (0.1-1.2) X10*3/uL Eos # (Auto) (0.0-0.4) X10*3/uL Baso # (Auto) (0.0-0.2) X10*3/uL Abs Immat Gran (auto) (0.00-0.03) X10*3/uL Absolute Neuts (auto) (2.0-8.3) x10*3/uL Absolute Nucleated RBC (0.0-0.012) X10*3/uL Nucleated RBC % (auto) (0.0-0.2) /100WBC Sodium (135-145) mmol/L Potassium (3.3-5.1) mmol/L Chloride (96-108) mmol/L Carbon Dioxide (22-29) mmol/L Anion Gap (12-20) BUN (9-16) mg/dL Creatinine (0.5-1.4) mg/dL Estim Creat Clear Calc Estimated GFR Random Glucose (60-115) mg/dL Lactic Acid 0.7 (0.5-2.0) mmol/L Calcium (8.4-10.2) mg/dL Total Bilirubin (0.0-1.0) mg/dL Direct Bilirubin (0.0-0.5) mg/dL AST (5-37) U/L ALT (0-40) U/L Alkaline Phosphatase (39-117) U/L Total Protein (6.5-8.0) g/dL Albumin (3.5-5.0) g/dL Lipase (8-78) U/L Urine Color Urine Appearance Urine pH (5.0-8.0) Ur Specific [place] (1.005-1.025) Urine Protein (Neg-Trace) mg/dL Urine Glucose (UA) (Negative) mg/dL Urine Ketones (Negative) mg/dL Urine Blood (Negative) Urine Nitrite (Negative) Ur Leukocyte Esterase (Negative) Urine RBC (0-2) /HPF Urine WBC (0-5) /HPF Ur Squamous Epith Cells (0-2) /HPF Urine Bacteria (None Seen) Hyaline Casts (0-2) /LPF <Mayra Patiño NP - Last Filed: 04/07/22 02:08> Lab Results 04/06/22 04/06/22 04/06/22 Range/Units 20:25 20:25 20:25 WBC 15.2 H (4.8-10.8) X10*3/uL RBC 4.67 (4.60-5.80) X10*6/uL Hgb 13.6 L (14.0-18.0) g/dl Hct 41.1 L (42.0-52.0) % MCV 88.0 (80.0-98.0) fL MCH 29.1 (27.0-33.0) pg MCHC 33.1 (31.0-36.0) g/dl RDW 14.6 (11.0-16.0) % Plt Count 326 (160-400) X10*3/uL MPV 8.7 L (9.4-12.4) fL Immature Gran % (Auto) 0.6 H (0.0-0.4) % Neut % (Auto) 72.6 (45-73) % Lymph % (Auto) 18.5 L (20-40) % [place] % (Auto) 7.2 (2-11) % Eos % (Auto) 0.8 (0-4) % Baso % (Auto) 0.3 (0-2) % Lymph # (Auto) 2.8 (1.2-4.9) X10*3/uL [place] # (Auto) 1.1 (0.1-1.2) X10*3/uL Eos # (Auto) 0.1 (0.0-0.4) X10*3/uL Baso # (Auto) 0.0 (0.0-0.2) X10*3/uL Abs Immat Gran (auto) 0.09 H (0.00-0.03) X10*3/uL Absolute Neuts (auto) 11.1 H (2.0-8.3) x10*3/uL Absolute Nucleated RBC 0.000 (0.0-0.012) X10*3/uL Nucleated RBC % (auto) 0.0 (0.0-0.2) /100WBC Sodium 139 (135-145) mmol/L Potassium 3.8 (3.3-5.1) mmol/L Chloride 101 (96-108) mmol/L Carbon Dioxide 28 (22-29) mmol/L Anion Gap 14 (12-20) BUN 13 (9-16) mg/dL Creatinine 0.94 (0.5-1.4) mg/dL Estim Creat Clear Calc 144.6 Estimated GFR > 60 Random Glucose 88 (60-115) mg/dL Lactic Acid (0.5-2.0) mmol/L Calcium 8.9 (8.4-10.2) mg/dL Total Bilirubin 0.5 (0.0-1.0) mg/dL Direct Bilirubin 0.2 (0.0-0.5) mg/dL AST 21 (5-37) U/L ALT 24 (0-40) U/L Alkaline Phosphatase 85 (39-117) U/L Total Protein 7.4 (6.5-8.0) g/dL Albumin 4.0 (3.5-5.0) g/dL Lipase 24 (8-78) U/L Urine Color Yellow Urine Appearance Clear Urine pH 5.5 (5.0-8.0) Ur Specific [place] 1.020 (1.005-1.025) Urine Protein Negative (Neg-Trace) mg/dL Urine Glucose (UA) Negative (Negative) mg/dL Urine Ketones Negative (Negative) mg/dL Urine Blood Negative (Negative) Urine Nitrite Negative (Negative) Ur Leukocyte Esterase Small (1+) H (Negative) Urine RBC 0-2 (0-2) /HPF Urine WBC 11-20 H (0-5) /HPF Ur Squamous Epith Cells 0-2 (0-2) /HPF Urine Bacteria None Seen (None Seen) Hyaline Casts 0-2 (0-2) /LPF 04/07/22 Range/Units 00:46 WBC (4.8-10.8) X10*3/uL RBC (4.60-5.80) X10*6/uL Hgb (14.0-18.0) g/dl Hct (42.0-52.0) % MCV (80.0-98.0) fL MCH (27.0-33.0) pg MCHC (31.0-36.0) g/dl RDW (11.0-16.0) % Plt Count (160-400) X10*3/uL MPV (9.4-12.4) fL Immature Gran % (Auto) (0.0-0.4) % Neut % (Auto) (45-73) % Lymph % (Auto) (20-40) % [place] % (Auto) (2-11) % Eos % (Auto) (0-4) % Baso % (Auto) (0-2) % Lymph # (Auto) (1.2-4.9) X10*3/uL [place] # (Auto) (0.1-1.2) X10*3/uL Eos # (Auto) (0.0-0.4) X10*3/uL Baso # (Auto) (0.0-0.2) X10*3/uL Abs Immat Gran (auto) (0.00-0.03) X10*3/uL Absolute Neuts (auto) (2.0-8.3) x10*3/uL Absolute Nucleated RBC (0.0-0.012) X10*3/uL Nucleated RBC % (auto) (0.0-0.2) /100WBC Sodium (135-145) mmol/L Potassium (3.3-5.1) mmol/L Chloride (96-108) mmol/L Carbon Dioxide (22-29) mmol/L Anion Gap (12-20) BUN (9-16) mg/dL Creatinine (0.5-1.4) mg/dL Estim Creat Clear Calc Estimated GFR Random Glucose (60-115) mg/dL Lactic Acid 0.7 (0.5-2.0) mmol/L Calcium (8.4-10.2) mg/dL Total Bilirubin (0.0-1.0) mg/dL Direct Bilirubin (0.0-0.5) mg/dL AST (5-37) U/L ALT (0-40) U/L Alkaline Phosphatase (39-117) U/L Total Protein (6.5-8.0) g/dL Albumin (3.5-5.0) g/dL Lipase (8-78) U/L Urine Color Urine Appearance Urine pH (5.0-8.0) Ur Specific [place] (1.005-1.025) Urine Protein (Neg-Trace) mg/dL Urine Glucose (UA) (Negative) mg/dL Urine Ketones (Negative) mg/dL Urine Blood (Negative) Urine Nitrite (Negative) Ur Leukocyte Esterase (Negative) Urine RBC (0-2) /HPF Urine WBC (0-5) /HPF Ur Squamous Epith Cells (0-2) /HPF Urine Bacteria (None Seen) Hyaline Casts (0-2) /LPF <Sergio Cummins MD - Last Filed: 04/07/22 03:54> Discharge Plan Discharge Clinical Impression: Abdominal wall hernia <Mayra Patiño NP - Last Filed: 04/07/22 02:08> Patient Disposition: Home, Self-Care <Mayra Patiño NP - Last Filed: 04/07/22 02:08> Instructions: Ventral Hernia (ED) <Mayra Patiño NP - Last Filed: 04/07/22 02:08> Additional Instructions: Avoid lifting heavy weight Follow-up with surgeon for management Report to the ER if increased pain/vomiting <Mayra Patñio NP - Last Filed: 04/07/22 02:08> Prescriptions: No Action tamsulosin 0.4 mg capsule 0.4 mg PO BEDTIME 90 Days Qty: 90 1RF ipratropium bromide 0.03 % spray,non-aerosol 2 spray intranasal TID PRN (Reason: congestion) doxycycline monohydrate 100 mg capsule 100 mg PO BID 7 Days Qty: 14 0RF carisoprodol [Soma] 350 mg tablet 350 mg PO TID PRN (Reason: muscle pain) 3 Days Qty: 10 0RF naproxen 500 mg tablet 500 mg PO BID PRN (Reason: pain) Qty: 20 0RF cyclobenzaprine 10 mg tablet 10 mg PO BID PRN (Reason: muscle spasm) Qty: 10 0RF polyethylene glycol 3350 [Miralax] 17 gram/dose powder 17 g PO BID Qty: 119 0RF oxycodone 5 mg tablet 5 mg PO Q6H PRN (Reason: pain) Qty: 14 0RF Rx Instructions: Partial Fill upon patient request. acetaminophen [Tylenol Extra Strength] 500 mg tablet 1,000 mg PO QID PRN (Reason: fever or pain) Qty: 14 0RF albuterol sulfate [ProAir HFA] 90 mcg/actuation HFA aerosol inhaler 2 puff inhalation Q6H PRN (Reason: Respiratory Distress) hydrochlorothiazide 25 mg tablet 25 mg PO DAILY docusate sodium [Colace] 100 mg capsule 100 mg PO DAILY levothyroxine 75 mcg capsule 75 mcg PO DAILY loratadine [Claritin] 10 mg tablet 10 mg PO DAILY montelukast [Singulair] 10 mg tablet 10 mg PO DAILY escitalopram oxalate [Lexapro] 10 mg tablet 10 mg PO DAILY omeprazole 20 mg capsule,delayed release(DR/EC) 20 mg PO DAILY fluticasone propion-salmeterol [Wixela Inhub] 500-50 mcg/dose blister with device 1 inh inhalation BID epinephrine [EpiPen] 0.3 mg/0.3 mL auto-injector 0.3 mg IM Q4H PRN (Reason: Anaphylaxis) naloxone [Narcan] 4 mg/actuation spray,non-aerosol 1 spray intranasal Q2M Rx Instructions: spray 1 dose into ONE nostril; alternate nostrils w each dose until help arrives terbinafine HCl [Antifungal (terbinafine)] 1 % cream 1 appl topical BID ibuprofen 800 mg tablet 800 mg PO Q6H tramadol 50 mg tablet 50 mg PO BID PRN (Reason: Pain, Moderate) <Mayra Patiño NP - Last Filed: 04/07/22 02:08>
[2022-04-07 01:05] LABS: Lactic Acid 0.7 mmol/L (0.5-2.0)
[2022-04-07 01:07] VITALS: RESP 16
[2022-04-07] MEDS: 0.9 % Sodium Chloride 1,000 ML 999 ML IVCONT (01:07)
[2022-04-07] MEDS: Morphine Sulfate 4 MG/ML CARTRIDGE IVPUSH (01:07)
[2022-04-07] MEDS: ondansetron HCL 4 MG/2 ML VIAL IVPUSH (01:07)
[2022-04-07] MEDS: iohexoL 350 MG/ML 100 ML INFUS..BTL IV (01:42)
[2022-04-07] MEDS: Piperacillin Sodium/Tazobactam 3.375 GM in 0.9 % Sodium Chloride 50 ML IV (03:14)
[2022-04-07 03:16] VITALS: BP 121/57; PULSE 58; RESP 16; TEMP 36.6
[2022-04-07 03:22] VITALS: BP 121/57; PULSE 58; RESP 16; TEMP 36.6; O2SAT 96
== END 2022-04-07 04:44 | disposition home or self-care (01) ==
PROVIDERS: Nurse Practitioner Family; Emergency Provider Internal Medicine; PCP Family Medicine
DX: R10.32 Left lower quadrant pain (principal); R50.9 Fever, unspecified; Z79.899 Other long term (current) drug therapy; Z87.891 Personal history of nicotine dependence
CPT/HCPCS: 36415; 74177; 80053; 81001; 82248; 83605; 83690; 85025; 87040; 87086; 96361; 96365; 96375; 99284; J2270; J2405; J2543; Q9967

== ENCOUNTER → 2022-04-18 14:16 | Outpatient (BNVA) | payer OTHER, SELFPAY | PROVIDERS: PCP Family Medicine; Visit Provider Surgery | DX: K43.2 Incisional hernia without obstruction or gangrene (principal) | CPT/HCPCS: 99212 ==

== ENCOUNTER → 2022-04-24 13:26 | Outpatient (BNVA) | payer OTHER, SELFPAY | PROVIDERS: PCP Family Medicine; Visit Provider Physician Assistant Surgical | DX: Z11.0 Encounter for screening for intestinal infectious diseases (principal); E66.01 Morbid (severe) obesity due to excess calories; Z68.43 Body mass index [BMI] 50.0-59.9, adult | CPT/HCPCS: 99211; 99212 ==

== ENCOUNTER 2022-04-24 16:29 | Outpatient (REF) | payer OTHER, SELFPAY ==
[2022-04-26 15:35] LABS: H Pylori Breath Test Negative (Negative)
== END 2022-04-24 16:30 | disposition home or self-care (01) ==
LOC: HO.LNP 16:29
PROVIDERS: Visit Provider Physician Assistant Surgical
DX: E66.01 Morbid (severe) obesity due to excess calories (principal)
CPT/HCPCS: 83013

== ENCOUNTER 2022-04-26 08:04 | Outpatient (REF) | payer OTHER, SELFPAY ==
--- NOTE | ~2022-04-26 | XR_ITS ---
EXAMINATION: XR CHEST CLINICAL INFORMATION: Morbid obesity. COMPARISON: Chest radiographs dated 01/02/2021. TECHNIQUE: Frontal and lateral views of the chest were obtained. FINDINGS: The heart, great vessels, pulmonary vasculature and mediastinum are normal. The lungs show no focal infiltrate, effusion or pneumothorax. There is stable elevation of the right hemidiaphragm. There is no acute osseous abnormality. XR/XR chest 2V IMPRESSION: No active cardiopulmonary disease.
--- NOTE | 2022-04-26 08:10 | ECG_ITS ---
Test Reason : E66.01 MORBID OBESITY Blood Pressure : / mmHG Vent. Rate : 064 BPM Atrial Rate : 064 BPM P-R Int : 170 ms QRS Dur : 092 ms QT Int : 420 ms P-R-T Axes : 011 041 -01 degrees QTc Int : 433 ms Normal sinus rhythm Normal ECG When compared with ECG of 25-APR-2021 16:00, No significant change was found Referred By: Jaycob Lovett Electronically Signed By:TEE WING
[2022-04-26 08:31] LABS: MANUAL DIFF FLAG NO
[2022-04-26 08:59] LABS: Basophils Percent Auto 0.3 % (0-2); Eosinophils Absolute Auto 0.2 X10*3/uL (0.0-0.4); Eosinophils Percent Auto 3.4 % (0-4); Hematocrit 40.3 % (42.0-52.0); Imm Gran Abs Auto 0.07 X10*3/uL (0.00-0.03); Lymphocytes Absolute Auto 2.2 X10*3/uL (1.2-4.9); Mean Corpuscular HGB Conc 32.3 g/dl (31.0-36.0); Mean Corpuscular Hemoglobin 28.8 pg (27.0-33.0); Mean Corpuscular Volume 89.4 fL (80.0-98.0); Mean Platelet Volume 8.7 fL (9.4-12.4); Monocytes Absolute Auto 0.6 X10*3/uL (0.1-1.2); Monocytes Percent Auto 8.9 % (2-11); Neutrophils Absolute Auto 3.7 x10*3/uL (2.0-8.3); Neutrophils Percent Auto 54.4 % (45-73); Platelet Count 293 X10*3/uL (160-400); Red Blood Count 4.51 X10*6/uL (4.60-5.80); Red Cell Distribution Width 14.3 % (11.0-16.0); White Blood Count 6.7 X10*3/uL (4.8-10.8)
[2022-04-26 09:02] LABS: Estimated Average Glucose 114 mg/dL; Hemoglobin A1C 128.0382 umol/L; Hemoglobin A1c % 5.6 %
[2022-04-26 09:02] LABS: Appearance Urine Clear; Color Urine Yellow; Glucose Urine UA Negative (Negative); Leukocyte Esterase Urine Small (1+) (Negative); Nitrite Urine Negative (Negative); UMIC TRIGGER UA YES; Urine Blood Negative (Negative); Urine Ketones Trace mg/dL (Negative); Urine Protein Negative (Neg-Trace)
[2022-04-26 09:13] LABS: Bacteria Urine None Seen (None Seen); Hyaline Casts Urine 0-2 /LPF (0-2); RBC Urine 0-2 /HPF (0-2); Squamous Epithelial Cell Urine 0-2 /HPF (0-2); WBC Urine 0-5 /HPF (0-5)
[2022-04-26 09:20] LABS: Alanine Aminotransferase 22 U/L (0-40); Albumin Level 3.9 g/dL (3.5-5.0); Alkaline Phosphatase 67 U/L (39-117); Anion Gap 14 (12-20); Aspartate Amino Transferase 21 U/L (5-37); Bilirubin Total 0.4 mg/dL (0.0-1.0); Blood Urea Nitrogen 13 mg/dL (9-16); C Reactive Protein 1.88 mg/dL (< or = 0.50); Calcium 9.4 mg/dL (8.4-10.2); Carbon Dioxide 28 mmol/L (22-29); Chloride 103 mmol/L (96-108); Cholesterol 216 mg/dL; Estimated Glomerular Filt Rate > 60; Glucose Random 80 mg/dL (60-115); HDL Cholesterol 56 mg/dL; Iron 75 mcg/dL (45-160); LDL Cholesterol Calculated 145 mg/dl; Percent Iron Saturation 21 % (15-50); Potassium 4.4 mmol/L (3.3-5.1); Sodium 141 mmol/L (135-145); Total Iron Binding Capacity 353 mcg/dL (228-428); Total Protein 7.2 g/dL (6.5-8.0); Triglycerides 78 mg/dL; Unsaturated Iron Binding 278 ug/dL
[2022-04-26 09:44] LABS: Ferritin 98 ng/mL (20-250); Insulin 23 uU/mL (2-29); TSH reflex Free T4 3.78 uIU/mL (0.32-4.0)
[2022-04-26 09:52] LABS: Folate 19.5 ng/mL (> or = 4.0); Vitamin B12 309 pg/mL (200-900)
[2022-04-27 15:21] LABS: Calcium (PTHI) 9.1 mg/dL (8.6-10.3); PTHI 63 pg/mL (16-77)
[2022-05-01 05:02] LABS: Zinc 81 mcg/dL (60-130)
[2022-05-02 19:46] LABS: Vitamin A 56 mcg/dL (38-98)
[2022-05-02 21:51] LABS: Vitamin B1 8 nmol/L (8-30)
== END 2022-04-26 08:05 | disposition home or self-care (01) ==
LOC: HO.XRAY 08:04
PROVIDERS: Student in an Organized Health Care Education/Training Program; PCP Family Medicine; Visit Provider Physician Assistant Surgical
DX: M54.40 Lumbago with sciatica, unspecified side (principal); M25.572 Pain in left ankle and joints of left foot; M10.9 Gout, unspecified; E66.01 Morbid (severe) obesity due to excess calories; R31.9 Hematuria, unspecified; R79.89 Other specified abnormal findings of blood chemistry; R59.0 Localized enlarged lymph nodes; Z79.899 Other long term (current) drug therapy
CPT/HCPCS: 36415; 71046; 80053; 80061; 81001; 82306; 82607; 82728; 82746; 83036; 83525; 83540; 83970; 84425; 84443; 84590; 84630; 85025; 86140; 93005; 99212

== ENCOUNTER 2022-05-09 00:21 | Emergency (ER) | payer OTHER, SELFPAY ==
--- NOTE | ~2022-05-09 | XR_ITS ---
EXAMINATION: XR CHEST CLINICAL INFORMATION: Cough COMPARISON: 04/26/2022 TECHNIQUE: Frontal view of the chest was obtained. FINDINGS: Normal symmetric lung volumes. Platelike atelectasis, left lung base.. No pleural effusion. No pneumothorax. Cardiomediastinal silhouette and pulmonary vascularity are within normal limits. No acute osseous abnormalities. XR/XR chest 1V IMPRESSION: No acute findings.
[2022-05-09 00:26] VITALS: BP 111/69; PULSE 100; RESP 20; TEMP 39.5; O2SAT 94; BMI 48.3
[2022-05-09] MEDS: Acetaminophen 325 MG TABLET 975 MG PO (00:33)
--- NOTE | 2022-05-09 00:35 | ECG_ITS ---
Test Reason : chest congestion Blood Pressure : / mmHG Vent. Rate : 094 BPM Atrial Rate : 094 BPM P-R Int : 164 ms QRS Dur : 086 ms QT Int : 336 ms P-R-T Axes : -08 -02 008 degrees QTc Int : 420 ms Normal sinus rhythm Normal ECG When compared with ECG of 26-APR-2022 08:10, No significant change was found Referred By: Generic ED Physician Electronically Signed By:TEE WING
[2022-05-09 00:54] LABS: Basophils Percent Auto 0.2 % (0-2); Eosinophils Absolute Auto 0.2 X10*3/uL (0.0-0.4); Eosinophils Percent Auto 0.9 % (0-4); Hematocrit 38.1 % (42.0-52.0); Hemoglobin 12.6 g/dl (14.0-18.0); Imm Gran Abs Auto 0.09 X10*3/uL (0.00-0.03); Imm Gran Pct Auto 0.5 % (0.0-0.4); Lymphocytes Percent Auto 11.4 % (20-40); Mean Corpuscular HGB Conc 33.1 g/dl (31.0-36.0); Mean Corpuscular Hemoglobin 29.1 pg (27.0-33.0); Mean Platelet Volume 8.9 fL (9.4-12.4); Monocytes Absolute Auto 1.7 X10*3/uL (0.1-1.2); Neutrophils Absolute Auto 13.4 x10*3/uL (2.0-8.3); Platelet Count 290 X10*3/uL (160-400); Red Blood Count 4.33 X10*6/uL (4.60-5.80); Red Cell Distribution Width 14.3 % (11.0-16.0); SCAN SMEAR FLAG 1; White Blood Count 17.4 X10*3/uL (4.8-10.8)
[2022-05-09 01:07] LABS: COVID-19 Test Negative (Negative)
[2022-05-09 01:09] LABS: Anion Gap 15 (12-20); Blood Urea Nitrogen 11 mg/dL (9-16); Calcium 8.9 mg/dL (8.4-10.2); Carbon Dioxide 24 mmol/L (22-29); Chloride 102 mmol/L (96-108); Creatinine Clr Calc Pharmacy 121.6; Estimated Glomerular Filt Rate > 60; Glucose Random 112 mg/dL (60-115); Sodium 137 mmol/L (135-145)
[2022-05-09 01:15] LABS: Troponin-I High Sensitivity < 3.5 ng/L (<3.5-35.0)
[2022-05-09 01:22] LABS: MANUAL DIFF FLAG SCAN
[2022-05-09 01:36] LABS: SLIDE REVIEW VERIFIED
[2022-05-09 01:55] VITALS: BP 117/70; PULSE 87; RESP 20; TEMP 38.1; O2SAT 94
[2022-05-09 04:58] VITALS: BP 111/54; PULSE 63; RESP 18; TEMP 37.2; O2SAT 96
--- NOTE | 2022-05-09 05:52 | ED.URI ---
HPI - URI/Sore Throat General Chief Complaint: Upper Respiratory Symptoms Stated Complaint: Flu like symptoms Time Seen by Provider: 05/09/22 05:52 Source: patient Mode of arrival: ambulatory Limitations: no limitations History of Present Illness HPI Narrative: Patient been coughing with sore throat for last 4 days with fever and chills occasional cough feels congested no shortness of breath and temp on arrival was 103.1 did home COVID test was negative Related Data Home Medications Medication Instructions Recorded Confirmed ipratropium bromide 21 mcg (0.03 2 spray intranasal TID PRN 05/25/20 04/24/22 %) nasal spray congestion albuterol sulfate 90 mcg/actuation 2 puff inhalation Q6H PRN 03/26/22 04/24/22 aerosol inhaler (ProAir HFA) Respiratory Distress docusate sodium 100 mg capsule 100 mg PO DAILY 03/26/22 04/24/22 (Colace) epinephrine 0.3 mg/0.3 mL 0.3 mg IM Q4H PRN Anaphylaxis 03/26/22 04/24/22 injection, auto-injector (EpiPen) escitalopram oxalate 10 mg tablet 10 mg PO DAILY 03/26/22 04/24/22 (Lexapro) fluticasone 500 mcg-salmeterol 50 1 inh inhalation BID 03/26/22 04/24/22 mcg/dose blistr powdr for inhalation (Wixela Inhub) hydrochlorothiazide 25 mg tablet 25 mg PO DAILY 03/26/22 04/24/22 ibuprofen 800 mg tablet 800 mg PO Q6H 03/26/22 04/24/22 levothyroxine 75 mcg capsule 75 mcg PO DAILY 03/26/22 04/24/22 loratadine 10 mg tablet (Claritin) 10 mg PO DAILY 03/26/22 04/24/22 montelukast 10 mg tablet 10 mg PO DAILY 03/26/22 04/24/22 (Singulair) naloxone 4 mg/actuation nasal 1 spray intranasal Q2M 03/26/22 04/24/22 spray (Narcan) omeprazole 20 mg capsule,delayed 20 mg PO DAILY 03/26/22 04/24/22 release terbinafine HCl 1 % topical cream 1 appl topical BID 03/26/22 04/24/22 (Antifungal (terbinafine)) tramadol 50 mg tablet 50 mg PO BID PRN Pain, Moderate 03/26/22 04/24/22 Previous Rx's Medication Instructions Recorded tamsulosin 0.4 mg capsule 0.4 mg PO BEDTIME 90 days #90 caps 12/27/20 carisoprodol 350 mg tablet (Soma) 350 mg PO TID PRN muscle pain 3 01/06/21 days #10 tabs cyclobenzaprine 10 mg tablet 10 mg PO BID PRN muscle spasm #10 01/28/21 tabs polyethylene glycol 3350 17 17 g PO BID #119 grams 05/19/21 gram/dose oral powder (Miralax) acetaminophen 500 mg tablet 1,000 mg PO QID PRN fever or pain 02/27/22 (Tylenol Extra Strength) #14 tabs colchicine 0.6 mg tablet 0.6 mg PO BID #60 tabs 04/26/22 mecobalamin (vitamin B12) 1,000 1,000 mcg sublingual DAILY #30 tabs 04/27/22 mcg disintegrating tablet,sublingual allopurinol 100 mg tablet 100 mg PO DAILY #80 tabs 05/01/22 cholecalciferol (vitamin D3) 125 125 mcg PO DAILY #90 caps 05/02/22 mcg (5,000 unit) capsule thiamine HCl (vitamin B1) 100 mg 100 mg PO DAILY #30 tabs 05/03/22 tablet amoxicillin 875 mg-potassium 1 tab PO BID #20 tabs 05/09/22 clavulanate 125 mg tablet Allergies Allergy/AdvReac Type Severity Reaction Status Date / Time egg [EGGS] Allergy Unknown ITCHY Verified 04/26/22 13:25 THROAT,SWELLING LIPS JANELL cooking spray Allergy Unknown swelling Uncoded 04/26/22 13:25 in mouth/tongue Review of Systems Review of Systems: Yes all other systems are reviewed and are negative PMFSH Past Medical History Medical History Anxiety Asthma Gout Incisional hernia Incisional hernia Incisional pain Morbid obesity due to excess calories Obesity Obstructive sleep apnea Open wound anterior abdominal wall SBO (small bowel obstruction) Surgical History H/O hernia repair Hx of carpal tunnel repair Status post Hattie's procedure Family History Family History Mother Arthritis Father Arthritis Maternal Grandfather History of prostate cancer Maternal Grandmother History of breast cancer Social History Social History Household Members: Spouse Housing: House Do you presently have visiting nurse or other home services: No Alcohol intake: former Year quit: 2019 Patient Tobacco Use Status: Former Tobacco user Quit Date: 20 years ago Second Hand Smoke Exposure: No Use of substances other than those prescribed or required for medical reasons: No Substance Use Type: Marijuana Advance Directives: No Advance Directives Information Provided: No service: No Current occupational status: disabled 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 Oriented X3. No acute distress. Eyes: PERRLA, No Nystagmus ENT: Pharynx erythematous, Oral Mucosa moist Neck: Normal inspection. Neck supple. CVS: Normal heart rate and rhythm. Pulses normal. Respiratory: No respiratory distress. Equal air entry bilateral, no crackles occasional wheezing+ Abdomen: Soft and nontender. Bowel sounds are present, no mass palpable, no CVA tenderness Skin: Skin warm and dry. Normal skin color. Normal skin turgor. Extremities: No lower extremity edema. No calf tenderness Neuro: Oriented X 3. No motor deficit. No sensory deficit. MDM - URI/Sore Throat MDM Narrative Medical decision making narrative: Patient acute pharyngitis chest x-ray negative strep negative discharge patient home on Augmentin Lab Data Attestation: I reviewed the patient's lab results. Result diagrams: 05/09/22 00:42 05/09/22 00:42 Labs: Lab Results 05/09/22 05/09/22 05/09/22 Range/Units 00:42 00:42 00:42 WBC 17.4 H (4.8-10.8) X10*3/uL RBC 4.33 L (4.60-5.80) X10*6/uL Hgb 12.6 L (14.0-18.0) g/dl Hct 38.1 L (42.0-52.0) % MCV 88.0 (80.0-98.0) fL MCH 29.1 (27.0-33.0) pg MCHC 33.1 (31.0-36.0) g/dl RDW 14.3 (11.0-16.0) % Plt Count 290 (160-400) X10*3/uL MPV 8.9 L (9.4-12.4) fL Immature Gran % (Auto) 0.5 H (0.0-0.4) % Neut % (Auto) 77.0 H (45-73) % Lymph % (Auto) 11.4 L (20-40) % [place] % (Auto) 10.0 (2-11) % Eos % (Auto) 0.9 (0-4) % Baso % (Auto) 0.2 (0-2) % Lymph # (Auto) 2.0 (1.2-4.9) X10*3/uL [place] # (Auto) 1.7 H (0.1-1.2) X10*3/uL Eos # (Auto) 0.2 (0.0-0.4) X10*3/uL Baso # (Auto) 0.0 (0.0-0.2) X10*3/uL Abs Immat Gran (auto) 0.09 H (0.00-0.03) X10*3/uL Absolute Neuts (auto) 13.4 H (2.0-8.3) x10*3/uL Absolute Nucleated RBC 0.000 (0.0-0.012) X10*3/uL Nucleated RBC % (auto) 0.0 (0.0-0.2) /100WBC Smear Tech's Comments VERIFIED Sodium 137 (135-145) mmol/L Potassium 4.0 (3.3-5.1) mmol/L Chloride 102 (96-108) mmol/L Carbon Dioxide 24 (22-29) mmol/L Anion Gap 15 (12-20) BUN 11 (9-16) mg/dL Creatinine 1.09 (0.5-1.4) mg/dL Estim Creat Clear Calc 121.6 Estimated GFR > 60 Random Glucose 112 D (60-115) mg/dL Calcium 8.9 (8.4-10.2) mg/dL Troponin I High Sens < 3.5 (<3.5-35.0) ng/L COVID-19 ([facility]) (Negative) COVID-19 Clin Com S. pyogenes GrpA KT (Negative) 05/09/22 05/09/22 Range/Units 00:42 06:08 WBC (4.8-10.8) X10*3/uL RBC (4.60-5.80) X10*6/uL Hgb (14.0-18.0) g/dl Hct (42.0-52.0) % MCV (80.0-98.0) fL MCH (27.0-33.0) pg MCHC (31.0-36.0) g/dl RDW (11.0-16.0) % Plt Count (160-400) X10*3/uL MPV (9.4-12.4) fL Immature Gran % (Auto) (0.0-0.4) % Neut % (Auto) (45-73) % Lymph % (Auto) (20-40) % [place] % (Auto) (2-11) % Eos % (Auto) (0-4) % Baso % (Auto) (0-2) % Lymph # (Auto) (1.2-4.9) X10*3/uL [place] # (Auto) (0.1-1.2) X10*3/uL Eos # (Auto) (0.0-0.4) X10*3/uL Baso # (Auto) (0.0-0.2) X10*3/uL Abs Immat Gran (auto) (0.00-0.03) X10*3/uL Absolute Neuts (auto) (2.0-8.3) x10*3/uL Absolute Nucleated RBC (0.0-0.012) X10*3/uL Nucleated RBC % (auto) (0.0-0.2) /100WBC Smear Tech's Comments Sodium (135-145) mmol/L Potassium (3.3-5.1) mmol/L Chloride (96-108) mmol/L Carbon Dioxide (22-29) mmol/L Anion Gap (12-20) BUN (9-16) mg/dL Creatinine (0.5-1.4) mg/dL Estim Creat Clear Calc Estimated GFR Random Glucose (60-115) mg/dL Calcium (8.4-10.2) mg/dL Troponin I High Sens (<3.5-35.0) ng/L COVID-19 ([facility] CARLOS) Negative (Negative) COVID-19 Clin Com See Note S. pyogenes GrpA KT Negative (Negative) Discharge Plan Discharge Clinical Impression: Pharyngitis Patient Disposition: Home, Self-Care Instructions: Pharyngitis (ED) Additional Instructions: Take antibiotic as prescribed Tylenol/Motrin for pain Follow with PCP Prescriptions: New amoxicillin-pot clavulanate 875-125 mg tablet 1 tab PO BID Qty: 20 0RF No Action tamsulosin 0.4 mg capsule 0.4 mg PO BEDTIME 90 Days Qty: 90 1RF mecobalamin (vitamin B12) 1,000 mcg tablet,disintegrating 1,000 mcg sublingual DAILY Qty: 30 3RF Rx Instructions: place tablet under tongue and allow to dissolve for at least30 secs before swallowing allopurinol 100 mg tablet 100 mg PO DAILY Qty: 80 0RF Rx Instructions: take 1 tablet daily for 2 week then 2 tabs daily cholecalciferol (vitamin D3) 125 mcg (5,000 unit) capsule 125 mcg PO DAILY Qty: 90 1RF thiamine HCl (vitamin B1) 100 mg tablet 100 mg PO DAILY Qty: 30 1RF ipratropium bromide 0.03 % spray,non-aerosol 2 spray intranasal TID PRN (Reason: congestion) carisoprodol [Soma] 350 mg tablet 350 mg PO TID PRN (Reason: muscle pain) 3 Days Qty: 10 0RF cyclobenzaprine 10 mg tablet 10 mg PO BID PRN (Reason: muscle spasm) Qty: 10 0RF polyethylene glycol 3350 [Miralax] 17 gram/dose powder 17 g PO BID Qty: 119 0RF acetaminophen [Tylenol Extra Strength] 500 mg tablet 1,000 mg PO QID PRN (Reason: fever or pain) Qty: 14 0RF albuterol sulfate [ProAir HFA] 90 mcg/actuation HFA aerosol inhaler 2 puff inhalation Q6H PRN (Reason: Respiratory Distress) hydrochlorothiazide 25 mg tablet 25 mg PO DAILY docusate sodium [Colace] 100 mg capsule 100 mg PO DAILY levothyroxine 75 mcg capsule 75 mcg PO DAILY loratadine [Claritin] 10 mg tablet 10 mg PO DAILY montelukast [Singulair] 10 mg tablet 10 mg PO DAILY escitalopram oxalate [Lexapro] 10 mg tablet 10 mg PO DAILY omeprazole 20 mg capsule,delayed release(DR/EC) 20 mg PO DAILY fluticasone propion-salmeterol [Wixela Inhub] 500-50 mcg/dose blister with device 1 inh inhalation BID epinephrine [EpiPen] 0.3 mg/0.3 mL auto-injector 0.3 mg IM Q4H PRN (Reason: Anaphylaxis) naloxone [Narcan] 4 mg/actuation spray,non-aerosol 1 spray intranasal Q2M Rx Instructions: spray 1 dose into ONE nostril; alternate nostrils w each dose until help arrives terbinafine HCl [Antifungal (terbinafine)] 1 % cream 1 appl topical BID ibuprofen 800 mg tablet 800 mg PO Q6H tramadol 50 mg tablet 50 mg PO BID PRN (Reason: Pain, Moderate) colchicine 0.6 mg tablet 0.6 mg PO BID Qty: 60 1RF
[2022-05-09 06:00] VITALS: BP 118/61; PULSE 59; RESP 16; TEMP 36.3; O2SAT 98
[2022-05-09] MEDS: Amoxicillin/Potassium Clav 875 MG TABLET PO (06:09)
[2022-05-09 06:20] VITALS: O2SAT 97
[2022-05-09 06:29] LABS: Strep A Nucleic Acid Negative (Negative)
== END 2022-05-09 07:33 | disposition home or self-care (01) ==
PROVIDERS: Emergency Provider Internal Medicine; PCP Family Medicine
DX: J02.9 Acute pharyngitis, unspecified (principal); Z20.822 Contact with and (suspected) exposure to COVID-19; R50.9 Fever, unspecified; F12.90 Cannabis use, unspecified, uncomplicated; Z79.899 Other long term (current) drug therapy; Z87.891 Personal history of nicotine dependence
CPT/HCPCS: 36415; 71045; 80048; 84484; 85025; 87635; 87651; 93005; 99283; 99285

== ENCOUNTER 2022-05-12 04:22 | Inpatient (IN) | payer OTHER, SELFPAY ==
[2022-05-12] VITALS (7 sets, daily range): BP systolic 114–148; BP diastolic 69–96; PULSE 71–89; RESP 16–19; TEMP 36.6–36.7; O2SAT 93–95; BMI 48.3
--- NOTE | ~2022-05-12 | CT_ITS ---
EXAMINATION: CT ABDOMEN AND PELVIS WITH CONTRAST CLINICAL INFORMATION: Left lower quadrant pain. Rule out hernia. COMPARISON: Previous CT of the abdomen and pelvis most recent March 2022 TECHNIQUE: Multidetector volumetric images were obtained from the superior aspect of the liver through the pubic symphysis following administration 85 mL of Omnipaque 350 intravenous contrast. Sagittal and coronal reformatted images were obtained on the technologist's workstation. Oral contrast: No This CT examination was performed using dose optimization techniques as appropriate, variously including the following: *Automated exposure control *Adjustment of mA and/or kV according to patient size (this includes techniques or standardized protocols for targeted exams where dose is matched to indication/reason for exam; i.e. extremities or head) *Use of iterative reconstruction technique DLP: 1 2.6 mGy-cm FINDINGS: LUNG BASES: There is new patchy airspace disease at the lung bases, greatest in the left lower lobe. This probably represents pneumonia. LIVER, GALLBLADDER, AND BILIARY TREE: The liver is normal in size, shape, and attenuation. No focal hepatic lesion or biliary ductal dilatation is present. The gallbladder is unremarkable with no evidence of radiopaque gallstones, gallbladder wall thickening, or obvious pericholecystic inflammatory changes. PANCREAS: Unremarkable. SPLEEN: Unremarkable. ADRENAL GLANDS: Unremarkable. KIDNEYS AND URETERS: The kidneys are normal in size, shape, and attenuation. No hydronephrosis, hydroureter, or calculi seen. No perinephric stranding. BLADDER: Unremarkable. GASTROINTESTINAL TRACT: There are several abdominal wall hernias. There is a small umbilical hernia containing fat. There is a para or infraumbilical broad-based hernia containing small bowel. This has a wide neck and a likely site of structures. There is a left lower quadrant hernia lateral to the left rectus muscle or spigelian hernia containing small bowel. This has a narrow neck and dilated loops of small bowel with transition zone suggestive of site of distal small bowel obstruction. The colon does not appear dilated. The appendix is normal. The stomach is dilated and fluid-filled. There are dilated fluid-filled loops of small bowel. Appearance is suggestive of small bowel obstruction secondary to left lower quadrant/spigelian hernia. There are postsurgical changes to the sigmoid colon. ABDOMINAL WALL: See above LYMPH NODES: Normal. VASCULAR: Unremarkable. PELVIC VISCERA: Unremarkable. OSSEOUS STRUCTURES: There is anterior subluxation of L5 with respect to L4 and S1. There is a bilateral L5 pars defect. There are multilevel degenerative changes of the spine. CT/CT abdomen pelvis w IV con IMPRESSION: Distal small bowel obstruction secondary to left lower quadrant/spigelian hernia. There are also midline abdominal wall hernias, a small umbilical hernia containing fat and broad-based hernia with wide neck in the infraumbilical region containing small bowel. The stomach is dilated and fluid-filled. There is new bibasilar airspace disease, greatest in the left lower lobe. Possible aspiration pneumonia should be considered. Nasogastric tube placement may be helpful. Fleischner guidelines were followed.
[2022-05-12 04:39] LABS: MANUAL DIFF FLAG NO
[2022-05-12 04:41] LABS: Basophils Absolute Auto 0.1 X10*3/uL (0.0-0.2); Basophils Percent Auto 0.5 % (0-2); Eosinophils Absolute Auto 0.5 X10*3/uL (0.0-0.4); Eosinophils Percent Auto 4.4 % (0-4); Hemoglobin 14.4 g/dl (14.0-18.0); Imm Gran Abs Auto 0.12 X10*3/uL (0.00-0.03); Imm Gran Pct Auto 1.1 % (0.0-0.4); Lymphocytes Absolute Auto 2.8 X10*3/uL (1.2-4.9); Mean Corpuscular HGB Conc 33.5 g/dl (31.0-36.0); Mean Corpuscular Hemoglobin 28.6 pg (27.0-33.0); Mean Corpuscular Volume 85.5 fL (80.0-98.0); Mean Platelet Volume 8.7 fL (9.4-12.4); Monocytes Absolute Auto 1.1 X10*3/uL (0.1-1.2); Monocytes Percent Auto 9.9 % (2-11); Neutrophils Absolute Auto 6.3 x10*3/uL (2.0-8.3); Neutrophils Percent Auto 58.1 % (45-73); Platelet Count 361 X10*3/uL (160-400); Red Blood Count 5.03 X10*6/uL (4.60-5.80); White Blood Count 10.8 X10*3/uL (4.8-10.8)
[2022-05-12 05:37] LABS: Alanine Aminotransferase 19 U/L (0-40); Albumin Level 4.3 g/dL (3.5-5.0); Alkaline Phosphatase 73 U/L (39-117); Anion Gap 19 (12-20); Aspartate Amino Transferase 20 U/L (5-37); Bilirubin Total 0.2 mg/dL (0.0-1.0); Blood Urea Nitrogen 15 mg/dL (9-16); Calcium 9.9 mg/dL (8.4-10.2); Carbon Dioxide 25 mmol/L (22-29); Chloride 97 mmol/L (96-108); Creatinine Clr Calc Pharmacy 125.1; Estimated Glomerular Filt Rate > 60; Glucose Random 95 mg/dL (60-115); Lipase 23 U/L (8-78); Potassium 3.9 mmol/L (3.3-5.1); Sodium 137 mmol/L (135-145); Total Protein 7.8 g/dL (6.5-8.0)
--- NOTE | 2022-05-12 06:03 | ED_ITS ---
HPI - Abdominal Pain General Chief Complaint: Abdominal Pain Stated Complaint: left side abd pain Time Seen by Provider: 05/12/22 05:55 Source: patient Mode of arrival: EMS History of Present Illness HPI narrative: 51-year-old male with presentation via EMS and complaint of left lower quadrant abdominal discomfort with known hernia. He denies any nausea or vomiting but states his pain is 10/10 and that he is never been able to reduce his own hernia. Related Data Home Medications Medication Instructions Recorded Confirmed ipratropium bromide 21 mcg (0.03 2 spray intranasal TID PRN 05/25/20 04/24/22 %) nasal spray congestion albuterol sulfate 90 mcg/actuation 2 puff inhalation Q6H PRN 03/26/22 04/24/22 aerosol inhaler (ProAir HFA) Respiratory Distress docusate sodium 100 mg capsule 100 mg PO DAILY 03/26/22 04/24/22 (Colace) epinephrine 0.3 mg/0.3 mL 0.3 mg IM Q4H PRN Anaphylaxis 03/26/22 04/24/22 injection, auto-injector (EpiPen) escitalopram oxalate 10 mg tablet 10 mg PO DAILY 03/26/22 04/24/22 (Lexapro) fluticasone 500 mcg-salmeterol 50 1 inh inhalation BID 03/26/22 04/24/22 mcg/dose blistr powdr for inhalation (Tyeshaxela Inhub) hydrochlorothiazide 25 mg tablet 25 mg PO DAILY 03/26/22 04/24/22 ibuprofen 800 mg tablet 800 mg PO Q6H 03/26/22 04/24/22 levothyroxine 75 mcg capsule 75 mcg PO DAILY 03/26/22 04/24/22 loratadine 10 mg tablet (Claritin) 10 mg PO DAILY 03/26/22 04/24/22 montelukast 10 mg tablet 10 mg PO DAILY 03/26/22 04/24/22 (Singulair) naloxone 4 mg/actuation nasal 1 spray intranasal Q2M 03/26/22 04/24/22 spray (Narcan) omeprazole 20 mg capsule,delayed 20 mg PO DAILY 03/26/22 04/24/22 release terbinafine HCl 1 % topical cream 1 appl topical BID 03/26/22 04/24/22 (Antifungal (terbinafine)) tramadol 50 mg tablet 50 mg PO BID PRN Pain, Moderate 03/26/22 04/24/22 Previous Rx's Medication Instructions Recorded tamsulosin 0.4 mg capsule 0.4 mg PO BEDTIME 90 days #90 caps 12/27/20 carisoprodol 350 mg tablet (Soma) 350 mg PO TID PRN muscle pain 3 01/06/21 days #10 tabs cyclobenzaprine 10 mg tablet 10 mg PO BID PRN muscle spasm #10 01/28/21 tabs polyethylene glycol 3350 17 17 g PO BID #119 grams 05/19/21 gram/dose oral powder (Miralax) acetaminophen 500 mg tablet 1,000 mg PO QID PRN fever or pain 02/27/22 (Tylenol Extra Strength) #14 tabs colchicine 0.6 mg tablet 0.6 mg PO BID #60 tabs 04/26/22 mecobalamin (vitamin B12) 1,000 1,000 mcg sublingual DAILY #30 tabs 04/27/22 mcg disintegrating tablet,sublingual allopurinol 100 mg tablet 100 mg PO DAILY #80 tabs 05/01/22 cholecalciferol (vitamin D3) 125 125 mcg PO DAILY #90 caps 05/02/22 mcg (5,000 unit) capsule thiamine HCl (vitamin B1) 100 mg 100 mg PO DAILY #30 tabs 05/03/22 tablet amoxicillin 875 mg-potassium 1 tab PO BID #20 tabs 05/09/22 clavulanate 125 mg tablet Allergies Allergy/AdvReac Type Severity Reaction Status Date / Time egg [EGGS] Allergy Unknown ITCHY Verified 04/26/22 13:25 THROAT,SWELLING LIPS JANELL cooking spray Allergy Unknown swelling Uncoded 04/26/22 13:25 in mouth/tongue Review of Systems Review of Systems Pertinent positives and negatives as stated in HPI 10 point review of systems otherwise negative. [facility] Past Medical History Source: nursing notes reviewed Medical History Anxiety Asthma Gout Incisional hernia Incisional hernia Incisional pain Morbid obesity due to excess calories Obesity Obstructive sleep apnea Open wound anterior abdominal wall SBO (small bowel obstruction) Surgical History H/O hernia repair Hx of carpal tunnel repair Status post Hattie's procedure Family History Family History Mother Arthritis Father Arthritis Maternal Grandfather History of prostate cancer Maternal Grandmother History of breast cancer Social History Social History Household Members: Spouse Housing: House Do you presently have visiting nurse or other home services: No Alcohol intake: former Year quit: 2019 Patient Tobacco Use Status: Former Tobacco user Quit Date: 20 years ago Second Hand Smoke Exposure: No Substance Use Type: Marijuana Advance Directives: No Advance Directives Information Provided: Yes service: No Current occupational status: disabled 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 GENERAL: Elevated BMI, Well developed, well nourished, in moderate distress. HEAD: Normocephalic/atraumatic EYES: PERRLA, EOMI EARS: Ext canals without abnormality OROPHARYNX: no oral lesions noted, posterior pharynx clear LUNGS: Normal breath sounds. No adventitious sounds or accessory muscle use. SpO2<95> CARDIOVASCULAR: Regular rate and rhythm without noted murmurs ABDOMEN: Soft, incarcerated hernia at left lower quadrant located at prior incisional site.non-distended with bowel sounds. MUSCULOSKELETAL: No tenderness, deformities, or effusions noted on gross i nspection. EXTREMITIES: No cyanosis, clubbing or edema. SKIN: Inspection of the skin reveals no rashes NEUROLOGIC: Alert and oriented x 4. Strength and sensation to light touch were grossly intact x 4. Course Course Course Narrative: 51-year-old male with history and clinical presentation consistent with incarcerated/strangulated incisional hernia. Signed out to Dr Corby MORALES - Abdominal Pain Lab Data Result diagrams: 05/12/22 04:36 05/12/22 05:08 Labs: Lab Results 05/12/22 05/12/22 05/12/22 Range/Units 04:36 05:08 05:59 WBC 10.8 (4.8-10.8) X10*3/uL RBC 5.03 (4.60-5.80) X10*6/uL Hgb 14.4 (14.0-18.0) g/dl Hct 43.0 (42.0-52.0) % MCV 85.5 (80.0-98.0) fL MCH 28.6 (27.0-33.0) pg MCHC 33.5 (31.0-36.0) g/dl RDW 14.0 (11.0-16.0) % Plt Count 361 (160-400) X10*3/uL MPV 8.7 L (9.4-12.4) fL Immature Gran % (Auto) 1.1 H (0.0-0.4) % Neut % (Auto) 58.1 (45-73) % Lymph % (Auto) 26.0 (20-40) % [place] % (Auto) 9.9 (2-11) % Eos % (Auto) 4.4 H (0-4) % Baso % (Auto) 0.5 (0-2) % Lymph # (Auto) 2.8 (1.2-4.9) X10*3/uL [place] # (Auto) 1.1 (0.1-1.2) X10*3/uL Eos # (Auto) 0.5 H (0.0-0.4) X10*3/uL Baso # (Auto) 0.1 (0.0-0.2) X10*3/uL Abs Immat Gran (auto) 0.12 H (0.00-0.03) X10*3/uL Absolute Neuts (auto) 6.3 (2.0-8.3) x10*3/uL Absolute Nucleated RBC 0.000 (0.0-0.012) X10*3/uL Nucleated RBC % (auto) 0.0 (0.0-0.2) /100WBC PT 12.8 (10.0-13.1) SEC INR 1.1 (0.9-1.1) Sodium 137 (135-145) mmol/L Potassium 3.9 (3.3-5.1) mmol/L Chloride 97 (96-108) mmol/L Carbon Dioxide 25 (22-29) mmol/L Anion Gap 19 (12-20) BUN 15 (9-16) mg/dL Creatinine 1.06 (0.5-1.4) mg/dL Estim Creat Clear Calc 125.1 Estimated GFR > 60 Random Glucose 95 (60-115) mg/dL Lactic Acid (0.5-2.0) mmol/L Calcium 9.9 D (8.4-10.2) mg/dL Total Bilirubin 0.2 (0.0-1.0) mg/dL AST 20 (5-37) U/L ALT 19 (0-40) U/L Alkaline Phosphatase 73 (39-117) U/L Total Protein 7.8 (6.5-8.0) g/dL Albumin 4.3 (3.5-5.0) g/dL Lipase 23 (8-78) U/L Urine Color Urine Appearance Urine pH (5.0-9.0) Ur Specific [place] (1.005-1.025) Urine Protein (Neg-Trace) mg/dL Urine Glucose (UA) (Negative) mg/dL Urine Ketones (Negative) mg/dL Urine Blood (Negative) Urine Nitrite (Negative) Ur Leukocyte Esterase (Negative) 05/12/22 05/12/22 Range/Units 06:14 06:20 WBC (4.8-10.8) X10*3/uL RBC (4.60-5.80) X10*6/uL Hgb (14.0-18.0) g/dl Hct (42.0-52.0) % MCV (80.0-98.0) fL MCH (27.0-33.0) pg MCHC (31.0-36.0) g/dl RDW (11.0-16.0) % Plt Count (160-400) X10*3/uL MPV (9.4-12.4) fL Immature Gran % (Auto) (0.0-0.4) % Neut % (Auto) (45-73) % Lymph % (Auto) (20-40) % [place] % (Auto) (2-11) % Eos % (Auto) (0-4) % Baso % (Auto) (0-2) % Lymph # (Auto) (1.2-4.9) X10*3/uL [place] # (Auto) (0.1-1.2) X10*3/uL Eos # (Auto) (0.0-0.4) X10*3/uL Baso # (Auto) (0.0-0.2) X10*3/uL Abs Immat Gran (auto) (0.00-0.03) X10*3/uL Absolute Neuts (auto) (2.0-8.3) x10*3/uL Absolute Nucleated RBC (0.0-0.012) X10*3/uL Nucleated RBC % (auto) (0.0-0.2) /100WBC PT (10.0-13.1) SEC INR (0.9-1.1) Sodium (135-145) mmol/L Potassium (3.3-5.1) mmol/L Chloride (96-108) mmol/L Carbon Dioxide (22-29) mmol/L Anion Gap (12-20) BUN (9-16) mg/dL Creatinine (0.5-1.4) mg/dL Estim Creat Clear Calc Estimated GFR Random Glucose (60-115) mg/dL Lactic Acid 0.8 (0.5-2.0) mmol/L Calcium (8.4-10.2) mg/dL Total Bilirubin (0.0-1.0) mg/dL AST (5-37) U/L ALT (0-40) U/L Alkaline Phosphatase (39-117) U/L Total Protein (6.5-8.0) g/dL Albumin (3.5-5.0) g/dL Lipase (8-78) U/L Urine Color Yellow Urine Appearance Clear Urine pH 7.5 (5.0-9.0) Ur Specific [place] 1.020 (1.005-1.025) Urine Protein Trace (Neg-Trace) mg/dL Urine Glucose (UA) Negative (Negative) mg/dL Urine Ketones Negative (Negative) mg/dL Urine Blood Negative (Negative) Urine Nitrite Negative (Negative) Ur Leukocyte Esterase Negative (Negative) Discharge Plan Discharge Clinical Impression: Abdominal pain, LLQ Patient Disposition: Still a Patient Prescriptions: No Action tamsulosin 0.4 mg capsule 0.4 mg PO BEDTIME 90 Days Qty: 90 1RF mecobalamin (vitamin B12) 1,000 mcg tablet,disintegrating 1,000 mcg sublingual DAILY Qty: 30 3RF Rx Instructions: place tablet under tongue and allow to dissolve for at least30 secs before swallowing allopurinol 100 mg tablet 100 mg PO DAILY Qty: 80 0RF Rx Instructions: take 1 tablet daily for 2 week then 2 tabs daily cholecalciferol (vitamin D3) 125 mcg (5,000 unit) capsule 125 mcg PO DAILY Qty: 90 1RF thiamine HCl (vitamin B1) 100 mg tablet 100 mg PO DAILY Qty: 30 1RF ipratropium bromide 0.03 % spray,non-aerosol 2 spray intranasal TID PRN (Reason: congestion) carisoprodol [Soma] 350 mg tablet 350 mg PO TID PRN (Reason: muscle pain) 3 Days Qty: 10 0RF cyclobenzaprine 10 mg tablet 10 mg PO BID PRN (Reason: muscle spasm) Qty: 10 0RF polyethylene glycol 3350 [Miralax] 17 gram/dose powder 17 g PO BID Qty: 119 0RF acetaminophen [Tylenol Extra Strength] 500 mg tablet 1,000 mg PO QID PRN (Reason: fever or pain) Qty: 14 0RF amoxicillin-pot clavulanate 875-125 mg tablet 1 tab PO BID Qty: 20 0RF albuterol sulfate [ProAir HFA] 90 mcg/actuation HFA aerosol inhaler 2 puff inhalation Q6H PRN (Reason: Respiratory Distress) hydrochlorothiazide 25 mg tablet 25 mg PO DAILY docusate sodium [Colace] 100 mg capsule 100 mg PO DAILY levothyroxine 75 mcg capsule 75 mcg PO DAILY loratadine [Claritin] 10 mg tablet 10 mg PO DAILY montelukast [Singulair] 10 mg tablet 10 mg PO DAILY escitalopram oxalate [Lexapro] 10 mg tablet 10 mg PO DAILY omeprazole 20 mg capsule,delayed release(DR/EC) 20 mg PO DAILY fluticasone propion-salmeterol [Wixela Inhub] 500-50 mcg/dose blister with device 1 inh inhalation BID epinephrine [EpiPen] 0.3 mg/0.3 mL auto-injector 0.3 mg IM Q4H PRN (Reason: Anaphylaxis) naloxone [Narcan] 4 mg/actuation spray,non-aerosol 1 spray intranasal Q2M Rx Instructions: spray 1 dose into ONE nostril; alternate nostrils w each dose until help arrives terbinafine HCl [Antifungal (terbinafine)] 1 % cream 1 appl topical BID ibuprofen 800 mg tablet 800 mg PO Q6H tramadol 50 mg tablet 50 mg PO BID PRN (Reason: Pain, Moderate) colchicine 0.6 mg tablet 0.6 mg PO BID Qty: 60 1RF
[2022-05-12] MEDS: fentaNYL citrate/PF 100 MCG/2 ML VIAL 25 MCG IVPUSH (06:04)
[2022-05-12 06:17] LABS: INTERNATIONAL NORM RATIO 1.1 (0.9-1.1); Prothrombin Time 12.8 SEC (10.0-13.1)
[2022-05-12 06:27] LABS: Appearance Urine Clear; Color Urine Yellow; Glucose Urine UA Negative (Negative); Leukocyte Esterase Urine Negative (Negative); Nitrite Urine Negative (Negative); PH 7.5 (5.0-9.0); Urine Blood Negative (Negative); Urine Ketones Negative (Negative); Urine Protein Trace mg/dL (Neg-Trace)
[2022-05-12] MEDS: 0.9 % Sodium Chloride 1,000 ML 999 ML IV (06:27)
[2022-05-12 06:29] LABS: Lactic Acid 0.8 mmol/L (0.5-2.0)
[2022-05-12] MEDS: iohexoL 350 MG/ML 100 ML INFUS..BTL IV (06:53)
[2022-05-12 07:03] LABS: COVID-19 Test Negative (Negative)
--- NOTE | 2022-05-12 08:08 | P.HPGS_ITS ---
History of Present Illness History of Present Illness Date of Service: 05/12/22 Chief complaint: Small Bowel Obstruction Narrative: Brady Dale is a 51 year old male presenting to the ER with complaints of abdominal pain. He reports awaiting the surgery and was required to lose approximately 50 lb prior to having the surgery. He is currently under the care of the weight loss center and has already lost approximately 20 lb over the last several weeks. He reports eating some chicken breast yesterday and soon after developing severe abdominal pain and abdominal distension. He reports a prior history of perforated sigmoid diverticulitis approximately 8 years ago. He underwent a Hattie's procedure with a left lower quadrant colostomy. After approximately urine half he underwent reversal of the colostomy. S this time his developed several incisional hernias occluding at the ostomy site. He was recently evaluated by Dr. Nowak for repair of this recurrent hernia. Upon presentation today patient was found to have a distended left lower quadrant incisional hernia which is not able to be reduced. A CT abdomen and pelvis was obtained. This revealed distended loops of small bowel proximally with decompressed distal small bowel. A large dilated stomach was also identified. Findings were suggestive of a small-bowel obstruction. Possible deep point of the obstruction was felt to be in the incisional hernia. Laboratories revealed normal WBC and a normal lactic acid. He is admitted to the surgical service for further management of the small-bowel obstruction with nasogastric tube decompression, IV hydration, and possible repair of the recurrent incisional he rnias. Review of Systems Review of Systems: Yes all other systems are reviewed and are negative Constitutional: Constitutional: Denies anorexia, Denies chills, Denies fever(s) and Reports weight loss (On medical weight loss program with protein diet) Cardiovascular: Cardiovascular: Reports Abdominal Distension (Due to small- bowel obstruction), Denies chest pain and Denies palpitations Respiratory: Respiratory: Denies chest congestion and Denies cough Gastrointestinal: Gastrointestinal: Reports abdominal pain, Reports bloating, Reports nausea and Reports vomiting Endocrine: Endocrine: Denies palpitations PMFSH Past Medical History Medical History Anxiety Asthma Gout Incisional hernia Incisional hernia Incisional pain Morbid obesity due to excess calories Obesity Obstructive sleep apnea Open wound anterior abdominal wall SBO (small bowel obstruction) Family History Family History Mother Arthritis Father Arthritis Maternal Grandfather History of prostate cancer Maternal Grandmother History of breast cancer Surgical History Surgical History H/O hernia repair Hx of carpal tunnel repair Status post Hattie's procedure Social History Social History Household Members: Spouse Housing: House Do you presently have visiting nurse or other home services: No Alcohol intake: former Year quit: 2019 Patient Tobacco Use Status: Former Tobacco user Quit Date: 20 years ago Second Hand Smoke Exposure: No Substance Use Type: Marijuana Advance Directives: No Advance Directives Information Provided: Yes service: No Current occupational status: disabled Current occupation: 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 Meds Allergies Allergy/AdvReac Type Severity Reaction Status Date / Time egg [EGGS] Allergy Unknown ITCHY Verified 04/26/22 13:25 THROAT,SWELLING LIPS JANELL cooking spray Allergy Unknown swelling Uncoded 04/26/22 13:25 in mouth/tongue Active Medications: Current Medications Acetaminophen (Acetaminophen 325 Mg Tablet) 650 mg PO Q6H PRN PRN Reason: Pain, Mild (Pain Scale 1-3) Enoxaparin Sodium (Enoxaparin Sodium 40 Mg/0.4 Ml Syringe) 40 mg SUBCUT Q24H [facility] Dextrose/Lactated Ringer's (D5lr) 1,000 mls @ 125 mls/hr IVCONT .Q8H [facility] Morphine Sulfate (Morphine Sulfate 4 Mg/Ml Cartridge) 4 mg IVPUSH Q3H PRN; Protocol PRN Reason: Pain, Severe (Pain Scale 7-10) Ondansetron HCl (Ondansetron Hcl 4 Mg/2 Ml Vial) 4 mg IVPUSH QID PRN PRN Reason: Nausea Oxycodone HCl (Oxycodone Hcl Immed Release 5 Mg Tablet) 5 mg PO Q6H PRN PRN Reason: Pain, Moderate (Pain Scale 4-6 Pharmacy Consult (Consult Rx Perform Med Rec) 1 each MISCELLANE ONCE PRN PRN Reason: Consult order Sodium Chloride (0.9 % Sodium Chloride Flush 3 Ml Syringe) 3 ml IVFLUSH QSHIFT [facility] Zolpidem Tartrate (Zolpidem Tartrate 5 Mg Tablet) 5 mg PO BEDTIME PRN PRN Reason: Insomnia Home Medications Medication Instructions Recorded Confirmed Last Taken Type ipratropium bromide 21 mcg (0.03 2 spray intranasal TID PRN 05/25/20 04/24/22 Unknown History %) nasal spray congestion albuterol sulfate 90 mcg/actuation 2 puff inhalation Q6H PRN 03/26/22 04/24/22 Unknown History aerosol inhaler (ProAir HFA) Respiratory Distress docusate sodium 100 mg capsule 100 mg PO DAILY 03/26/22 04/24/22 Unknown History (Colace) epinephrine 0.3 mg/0.3 mL 0.3 mg IM Q4H PRN Anaphylaxis 03/26/22 04/24/22 Unknown History injection, auto-injector (EpiPen) escitalopram oxalate 10 mg tablet 10 mg PO DAILY 03/26/22 04/24/22 Unknown History (Lexapro) fluticasone 500 mcg-salmeterol 50 1 inh inhalation BID 03/26/22 04/24/22 Unknown History mcg/dose blistr powdr for inhalation (Wixela Inhub) hydrochlorothiazide 25 mg tablet 25 mg PO DAILY 03/26/22 04/24/22 Unknown History ibuprofen 800 mg tablet 800 mg PO Q6H 03/26/22 04/24/22 Unknown History levothyroxine 75 mcg capsule 75 mcg PO DAILY 03/26/22 04/24/22 Unknown History loratadine 10 mg tablet (Claritin) 10 mg PO DAILY 03/26/22 04/24/22 Unknown History montelukast 10 mg tablet 10 mg PO DAILY 03/26/22 04/24/22 Unknown History (Singulair) naloxone 4 mg/actuation nasal 1 spray intranasal Q2M 03/26/22 04/24/22 Unknown History spray (Narcan) omeprazole 20 mg capsule,delayed 20 mg PO DAILY 03/26/22 04/24/22 Unknown History release terbinafine HCl 1 % topical cream 1 appl topical BID 03/26/22 04/24/22 Unknown History (Antifungal (terbinafine)) tramadol 50 mg tablet 50 mg PO BID PRN Pain, Moderate 03/26/22 04/24/22 Unknown History Physical Exam Vital Signs: Vital Signs: Last Vital Signs Temp 98.1 F 10/01/22 07:31 Pulse 80 05/12/22 07:31 Resp 18 05/12/22 07:31 BP 124/76 05/12/22 07:31 Pulse Ox 93 05/12/22 07:31 O2 Del Method 05/12/22 07:31 BMI result Body Mass Index 48.3 Results Results Labs: Short CBC 05/12/22 Range/Units 04:36 WBC 10.8 (4.8-10.8) X10*3/uL Hgb 14.4 (14.0-18.0) g/dl Hct 43.0 (42.0-52.0) % Plt Count 361 (160-400) X10*3/uL BMP 05/12/22 05:08 Sodium 137 Potassium 3.9 Chloride 97 Carbon Dioxide 25 BUN 15 Creatinine 1.06 Calcium 9.9 D Liver Function 05/12/22 Range/Units 05:08 Total Bilirubin 0.2 (0.0-1.0) mg/dL AST 20 (5-37) U/L ALT 19 (0-40) U/L Alkaline Phosphatase 73 (39-117) U/L Albumin 4.3 (3.5-5.0) g/dL Urine 05/12/22 Range/Units 06:20 Urine Color Yellow Urine Appearance Clear Urine pH 7.5 (5.0-9.0) Ur Specific Harrison 1.020 (1.005-1.025) Urine Protein Trace (Neg-Trace) mg/dL Urine Glucose (UA) Negative (Negative) mg/dL Abdomen CT scan report/results: image reviewed CT scan - pelvis: image reviewed Assessment and Plan (1) SBO (small bowel obstruction): Status: Acute (2) Incarcerated hernia: Status: Acute Plan 51-year-old male patient a prior history of perforated sigmoid diverticulitis, status post Hattie procedure approximately 8 years ago. Patient is had prior history is of small-bowel obstruction and prior hernia repairs for incisional hernia. He was recently diagnosed with a recurrent incisional hernia in the left lower quadrant by Dr. Nowak. Patient presents today with abdominal distension, nausea and vomiting with a non reducible incisional hernia in the left lower quadrant. Review the CT does reveal small bowel within the left lower quadrant incisional hernia. This a wide-based hernia and to my review of the scan distended bowel is noted distal to this as well. Patient may have distal adhesions contributing to the small-bowel obstruction. I recommended placement of a nasogastric tube in the emergency department as soon as possible. He will be admitted to the surgical service for nasogastric tube decompression, IV hydration and monitoring of his abdominal examination. I will repeat his laboratories in the a.m.. I discussed the possibility of needing further surgery for the small-bowel obstruction with the patient. He agrees with the plan of non operative management but understands that surgery may be required. Quality Stroke Does the patient have a stroke diagnosis?: No VTE Prior VTE?: No VTE Risk Level:: Surgical - moderate VTE Device Contraindication: N/A - Device Ordered VTE Drug Contraindication: N/A - Med Ordered Procedures Date of Service Date of Service: 05/12/22
[2022-05-12] MEDS: 0.9 % Sodium Chloride Flush 3 ML SYRINGE IVFLUSH (08:24)
[2022-05-12] MEDS: Morphine Sulfate 4 MG/ML CARTRIDGE IVPUSH ×4 (08:56→22:01)
[2022-05-12] MEDS: Enoxaparin Sodium 40 MG/0.4 ML SYRINGE SUBCUT (08:56)
[2022-05-12] MEDS: ondansetron HCL 4 MG/2 ML VIAL IVPUSH ×2 (08:56→20:19)
[2022-05-12 09:06] LABS: COVID-19 Test Negative (Negative)
--- NOTE | 2022-05-12 09:44 | PC.NURSE ---
attempted [address] an NGT without success, pt now refusing procedure. Attending is aware and will attempt
[2022-05-12] MEDS: Dextrose 5 % and Lactated Ring 1,000 ML 125 ML IVCONT ×2 (11:08→17:40)
[2022-05-12] MEDS: Acetaminophen 325 MG TABLET 650 MG PO (14:08)
[2022-05-13] VITALS (8 sets, daily range): BP systolic 110–174; BP diastolic 70–108; PULSE 73–117; RESP 16–20; TEMP 36.4–37.1; O2SAT 89–95
[2022-05-13] MEDS: Omeprazole 20 MG CAPSULE.DR PO ×3 (00:15→19:53)
[2022-05-13] MEDS: Dextrose 5 % and Lactated Ring 1,000 ML 125 ML IVCONT ×4 (00:18→19:54)
[2022-05-13] MEDS: Morphine Sulfate 4 MG/ML CARTRIDGE IVPUSH ×4 (00:49→17:49)
[2022-05-13 06:08] LABS: MANUAL DIFF FLAG NO
[2022-05-13 06:31] LABS: Anion Gap 18 (12-20); Blood Urea Nitrogen 12 mg/dL (9-16); Calcium 10.1 mg/dL (8.4-10.2); Carbon Dioxide 27 mmol/L (22-29); Chloride 96 mmol/L (96-108); Creatinine Clr Calc Pharmacy 144.1; Estimated Glomerular Filt Rate > 60; Glucose Random 137 mg/dL (60-115); Potassium 4.1 mmol/L (3.3-5.1); Sodium 137 mmol/L (135-145)
[2022-05-13 06:34] LABS: Basophils Percent Auto 0.2 % (0-2); Eosinophils Absolute Auto 0.1 X10*3/uL (0.0-0.4); Eosinophils Percent Auto 0.5 % (0-4); Hematocrit 45.2 % (42.0-52.0); Hemoglobin 14.6 g/dl (14.0-18.0); Imm Gran Abs Auto 0.12 X10*3/uL (0.00-0.03); Imm Gran Pct Auto 0.9 % (0.0-0.4); Lymphocytes Absolute Auto 1.2 X10*3/uL (1.2-4.9); Lymphocytes Percent Auto 9.3 % (20-40); Mean Corpuscular HGB Conc 32.3 g/dl (31.0-36.0); Mean Corpuscular Hemoglobin 27.8 pg (27.0-33.0); Mean Corpuscular Volume 85.9 fL (80.0-98.0); Mean Platelet Volume 8.8 fL (9.4-12.4); Monocytes Absolute Auto 0.9 X10*3/uL (0.1-1.2); Monocytes Percent Auto 6.9 % (2-11); Neutrophils Absolute Auto 10.9 x10*3/uL (2.0-8.3); Neutrophils Percent Auto 82.2 % (45-73); Platelet Count 413 X10*3/uL (160-400); Red Blood Count 5.26 X10*6/uL (4.60-5.80); Red Cell Distribution Width 13.8 % (11.0-16.0); White Blood Count 13.3 X10*3/uL (4.8-10.8)
[2022-05-13] MEDS: ondansetron HCL 4 MG/2 ML VIAL IVPUSH (07:03)
--- NOTE | 2022-05-13 07:27 | PC.NURSE ---
pt vomited tonite x2 first time was 2500 ml brown and second time 700 ml at 6 am but also he was having loose stools x3 he stated this morning.
--- NOTE | 2022-05-13 07:41 | PHA.MEDREC ---
Pharmacy Consult ? Medication Reconciliation Pharmacy has completed the medication reconciliation.
[2022-05-13] MEDS: Loratadine 10 MG TABLET PO (07:46)
[2022-05-13] MEDS: Montelukast Sodium 10 MG TABLET PO (07:46)
[2022-05-13] MEDS: hydroCHLOROthiazide 25 MG TABLET PO (07:46)
[2022-05-13] MEDS: Escitalopram Oxalate 10 MG TABLET PO (07:46)
[2022-05-13] MEDS: Enoxaparin Sodium 40 MG/0.4 ML SYRINGE SUBCUT (07:47)
[2022-05-13] MEDS: 0.9 % Sodium Chloride Flush 3 ML SYRINGE IVFLUSH ×2 (07:47→19:53)
[2022-05-13] MEDS: Fluticasone/Vilanterol 200/25 BLST.W.DEV 1 PUFF INHALE (08:21)
--- NOTE | 2022-05-13 09:21 | P.PNGS_ITS ---
Subjective Subjective Date of Service: 05/13/22 Interval history: Patient was not able to tolerated nasogastric tube placement. He did develop nausea and vomiting last night but this morning feels much improved. He reports 2 large bowel movements this morning. He reports his abdomen is soft and nontender. Physical Exam Vital Signs: Vital Signs: Last Vital Signs Temp 98.2 F 05/13/22 07:45 Pulse 113 H 05/13/22 08:23 Resp 20 05/13/22 08:23 BP 110/70 05/13/22 07:45 Pulse Ox 95 05/13/22 07:45 O2 Del Method 05/13/22 07:45 O2 Flow Rate 2 05/12/22 19:38 BMI result Body Mass Index 48.3 Const: General: comfortable and no acute distress Nutritional Appearance: o bese Orientation/consciousness: patient oriented x3 Limitations: no limitations Resp: Effort & Inspection: normal respiratory effort GI: Other: The incisional hernias now completely reduced, nontender Inspection: Yes normal to inspection and No distended Palpation (GI): Soft to palpation, nontender, no guarding and not rigid Skin: Other: Warm, dry, no rash Neuro: General: patient oriented x3 Extrem: Other: No edema Objective Data Active Medications Acetaminophen (Acetaminophen 325 Mg Tablet) 650 mg PO Q6H PRN PRN Reason: Pain, Mild (Pain Scale 1-3) Last Admin: 05/12/22 14:08 Dose: 650 mg Documented By: GILLIAN Albuterol Sulfate (Albuterol Sulfate 90 Mcg 8 Gm Inhaler) 2 puff INHALE Q6H PRN PRN Reason: Respiratory Distress Enoxaparin Sodium (Enoxaparin Sodium 40 Mg/0.4 Ml Syringe) 40 mg SUBCUT Q24H [facility] Last Admin: 05/13/22 07:47 Dose: 40 mg Documented By: MAYRA Escitalopram Oxalate (Escitalopram Oxalate 10 Mg Tablet) 10 mg PO DAILY [facility] Last Admin: 05/13/22 07:46 Dose: 10 mg Documented By: MAYRA Fluticasone/Vilanterol (Fluticasone/Vilanterol 200/25 Blst.W.Dev) 1 puff INHALE DAILY [facility] Last Admin: 05/13/22 08:21 Dose: 1 puff Documented By: ZOIE Hydrochlorothiazide (Hydrochlorothiazide 25 Mg Tablet) 25 mg PO DAILY [facility]; Protocol Last Admin: 05/13/22 07:46 Dose: 25 mg Documented By: MAYRA Dextrose/Lactated Ringer's (D5lr) 1,000 mls @ 125 mls/hr IVCONT .Q8H [facility] Last Admin: 05/13/22 07:55 Dose: 125 mls/hr Documented By: MAYRA Loratadine (Loratadine 10 Mg Tablet) 10 mg PO DAILY [facility] Last Admin: 05/13/22 07:46 Dose: 10 mg Documented By: MAYRA Montelukast Sodium (Montelukast Sodium 10 Mg Tablet) 10 mg PO DAILY [facility] Last Admin: 05/13/22 07:46 Dose: 10 mg Documented By: MAYRA Morphine Sulfate (Morphine Sulfate 4 Mg/Ml Cartridge) 4 mg IVPUSH Q3H PRN; Protocol PRN Reason: Pain, Severe (Pain Scale 7-10) Last Admin: 05/13/22 07:03 Dose: 4 mg Documented By: BRI Omeprazole (Omeprazole 20 Mg Capsule.Dr) 20 mg PO BID [facility] Last Admin: 05/13/22 07:46 Dose: 20 mg Documented By: MAYRA Ondansetron HCl (Ondansetron Hcl 4 Mg/2 Ml Vial) 4 mg IVPUSH QID PRN PRN Reason: Nausea Last Admin: 05/13/22 07:03 Dose: 4 mg Documented By: BRI Oxycodone HCl (Oxycodone Hcl Immed Release 5 Mg Tablet) 5 mg PO Q6H PRN PRN Reason: Pain, Moderate (Pain Scale 4-6 Pharmacy Consult (Consult Rx Perform Med Rec) 1 each MISCELLANE ONCE PRN PRN Reason: Consult order Sodium Chloride (0.9 % Sodium Chloride Flush 3 Ml Syringe) 3 ml IVFLUSH QSHIFT [facility] Last Admin: 05/13/22 07:47 Dose: 3 ml Documented By: MAYRA Zolpidem Tartrate (Zolpidem Tartrate 5 Mg Tablet) 5 mg PO BEDTIME PRN PRN Reason: Insomnia Labs CBC & Chem 7: 05/13/22 05:25 05/13/22 05:25 Labs: Laboratory Results - last 24 hr 05/13/22 05/13/22 05:25 05:25 MCV 85.9 MCH 27.8 MCHC 32.3 RDW 13.8 Plt Count 413 H MPV 8.8 L Immature Gran % (Auto) 0.9 H Neut % (Auto) 82.2 H Lymph % (Auto) 9.3 L Coke % (Auto) 6.9 Eos % (Auto) 0.5 Baso % (Auto) 0.2 Lymph # (Auto) 1.2 Coke # (Auto) 0.9 Eos # (Auto) 0.1 Baso # (Auto) 0.0 Abs Immat Gran (auto) 0.12 H Absolute Neuts (auto) 10.9 H Absolute Nucleated RBC 0.000 Nucleated RBC % (auto) 0.0 Anion Gap 18 Estim Creat Clear Calc 144.1 Estimated GFR > 60 Random Glucose 137 H D Calcium 10.1 Microbiology Microbiology Results: Microbiology 05/12/22 06:18 Blood Culture - Preliminary Blood - Venous No growth after 24 hours. 05/12/22 06:18 Blood Culture - Preliminary Blood - Venous No growth after 24 hours. Procedures Date of Service Date of Service: 05/13/22 Progress Note: A&P Assessment and plan (1) SBO (small bowel obstruction): Status: Acute Assessment and Plan: Resolved (2) Incarcerated hernia: Status: Acute Assessment and Plan: Resolved Plan 51-year-old male patient presenting with abdominal distension nausea, vomiting, and abdominal pain. Patient was found to have small-bowel obstruction by CT. Nasogastric tube was placed however patient was unable to tolerated. He developed some bleeding in the upper airway as a results. A nasogastric tube was aborted patient was admitted with NPO, IV fluids. Overnight he did have some nausea and vomiting but this has subsequently resolved. He had 2 large bowel movements today and feels much improved. Examination today reveals complete reduction of the hernias. His abdomen is soft and nondistended, nontender. I will start him on clear liquids today and advance over the next 24 hours. Time Spent With Patient Time: Total time spent is greater than 50% in coordination of care (as documented) at patient's floor/unit and/or counseling patient: Quality Stroke Does the patient have a stroke diagnosis?: No VTE Prior VTE?: No VTE Risk Level:: Surgical - moderate VTE Device Contraindication: N/A - Device Ordered VTE Drug Contraindication: N/A - Med Ordered
--- NOTE | 2022-05-13 11:45 | MHC.CM.PN ---
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
[2022-05-13] MEDS: oxyCODONE HCl Immed Release 5 MG TABLET PO (14:46)
[2022-05-13] MEDS: Zolpidem Tartrate 5 MG TABLET PO (19:53)
[2022-05-13] MEDS: Acetaminophen 325 MG TABLET 650 MG PO (20:00)
[2022-05-14] VITALS (7 sets, daily range): BP systolic 101–138; BP diastolic 56–79; PULSE 62–114; RESP 15–18; TEMP 36.1–37; O2SAT 92–95
[2022-05-14] MEDS: Morphine Sulfate 4 MG/ML CARTRIDGE IVPUSH ×6 (02:34→23:31)
[2022-05-14] MEDS: Dextrose 5 % and Lactated Ring 1,000 ML 125 ML IVCONT (03:27)
[2022-05-14] MEDS: Montelukast Sodium 10 MG TABLET PO (08:23)
[2022-05-14] MEDS: Escitalopram Oxalate 10 MG TABLET PO (08:23)
[2022-05-14] MEDS: Loratadine 10 MG TABLET PO (08:23)
[2022-05-14] MEDS: hydroCHLOROthiazide 25 MG TABLET PO (08:23)
[2022-05-14] MEDS: Omeprazole 20 MG CAPSULE.DR PO ×2 (08:23→19:38)
[2022-05-14] MEDS: Enoxaparin Sodium 40 MG/0.4 ML SYRINGE SUBCUT (08:23)
--- NOTE | 2022-05-14 10:12 | PM.PNGS ---
Subjective Subjective Date of Service: 05/14/22 <Ale Nielson PA-C - Last Filed: 05/14/22 10:15> 05/14/22 <Earnest Molina MD - Last Filed: 05/14/22 11:49> Interval history: Feels overall improved since admission. Still has mild abdominal pain but continues to pass flatus and have bowel movements. Tolerating clear liquids and wants to try solid food. <Ale Nielson PA-C - Last Filed: 05/14/22 10:15> Physical Exam Vital Signs: Vital Signs: Last Vital Signs Temp 97.0 F 05/14/22 07:48 Pulse 78 05/14/22 07:48 Resp 18 05/14/22 07:48 BP 115/64 05/14/22 07:48 Pulse Ox 92 05/14/22 07:48 O2 Del Method 05/14/22 07:48 O2 Flow Rate 2 05/12/22 19:38 BMI result Body Mass Index 48.3 <Ale Nielson PA-C - Last Filed: 05/14/22 10:15> Const: General: healthy appearing, comfortable and no acute distress <Ale Nielson PA-C - Last Filed: 05/14/22 10:15> Orientation/consciousness: patient oriented x3 <Ale Nielson PA-C - Last Filed: 05/14/22 10:15> Resp: Effort & Inspection: normal respiratory effort <Ale Nielosn PA-C - Last Filed: 05/14/22 10:15> GI: Inspection: Yes normal to inspection and No distended <Ale Nielson PA-C - Last Filed: 05/14/22 10:15> Palpation (GI): Soft to palpation, Tenderness to palpation present (GI) (very mild left sided) with no rebound tenderness, no guarding and not rigid <SHIVAM Bowers Last Filed: 05/14/22 10:15> Skin: General skin exam: no rashes or lesions noted <Ale Nielson PA-C - Last Filed: 05/14/22 10:15> Neuro: General: patient oriented x3 <SHIVAM Bowers Last Filed: 05/14/22 10:15> Objective Data Active Medications Acetaminophen (Acetaminophen 325 Mg Tablet) 650 mg PO Q6H PRN PRN Reason: Pain, Mild (Pain Scale 1-3) Last Admin: 05/13/22 20:00 Dose: 650 mg Documented By: SULAIMAN Albuterol Sulfate (Albuterol Sulfate 90 Mcg 8 Gm Inhaler) 2 puff INHALE Q6H PRN PRN Reason: Respiratory Distress Enoxaparin Sodium (Enoxaparin Sodium 40 Mg/0.4 Ml Syringe) 40 mg SUBCUT Q24H [facility] Last Admin: 05/14/22 08:23 Dose: 40 mg Documented By: SARAH Escitalopram Oxalate (Escitalopram Oxalate 10 Mg Tablet) 10 mg PO DAILY [facility] Last Admin: 05/14/22 08:23 Dose: 10 mg Documented By: SARAH Fluticasone/Vilanterol (Fluticasone/Vilanterol 200/25 Blst.W.Dev) 1 puff INHALE DAILY [facility] Last Admin: 05/14/22 07:37 Dose: Not Given Documented By: MELQUIADES Non-Admin Reason: Med Not Available Hydrochlorothiazide (Hydrochlorothiazide 25 Mg Tablet) 25 mg PO DAILY [facility]; Protocol Last Admin: 05/14/22 08:23 Dose: 25 mg Documented By: SARAH Loratadine (Loratadine 10 Mg Tablet) 10 mg PO DAILY [facility] Last Admin: 05/14/22 08:23 Dose: 10 mg Documented By: SARAH Montelukast Sodium (Montelukast Sodium 10 Mg Tablet) 10 mg PO DAILY [facility] Last Admin: 05/14/22 08:23 Dose: 10 mg Documented By: SARAH Morphine Sulfate (Morphine Sulfate 4 Mg/Ml Cartridge) 4 mg IVPUSH Q3H PRN; Protocol PRN Reason: Pain, Severe (Pain Scale 7-10) Last Admin: 05/14/22 09:08 Dose: 4 mg Documented By: SARAH Omeprazole (Omeprazole 20 Mg Capsule.Dr) 20 mg PO BID [facility] Last Admin: 05/14/22 08:23 Dose: 20 mg Documented By: SARAH Ondansetron HCl (Ondansetron Hcl 4 Mg/2 Ml Vial) 4 mg IVPUSH QID PRN PRN Reason: Nausea Last Admin: 05/13/22 07:03 Dose: 4 mg Documented By: BRI Oxycodone HCl (Oxycodone Hcl Immed Release 5 Mg Tablet) 5 mg PO Q6H PRN PRN Reason: Pain, Moderate (Pain Scale 4-6 Last Admin: 05/13/22 14:46 Dose: 5 mg Documented By: MAYRA Pharmacy Consult (Consult Rx Perform Med Rec) 1 each MISCELLANE ONCE PRN PRN Reason: Consult order Sodium Chloride (0.9 % Sodium Chloride Flush 3 Ml Syringe) 3 ml IVFLUSH QSHIFT [facility] Last Admin: 05/14/22 08:28 Dose: Not Given Documented By: SARAH Non-Admin Reason: No Access Zolpidem Tartrate (Zolpidem Tartrate 5 Mg Tablet) 5 mg PO BEDTIME PRN PRN Reason: Insomnia Last Admin: 05/13/22 19:53 Dose: 5 mg Documented By: SULAIMAN <Ale Nielson PA-C - Last Filed: 05/14/22 10:15> Labs CBC & Chem 7: : 05/13/22 05:25 05/13/22 05:25 <Ale Nielson PA-C - Last Filed: 05/14/22 10:15> Microbiology Microbiology Results: Microbiology 05/12/22 06:18 Blood Culture - Preliminary Blood - Venous No growth after 48 hours. 05/12/22 06:18 Blood Culture - Preliminary Blood - Venous No growth after 48 hours. <Ale Nielson PA-C - Last Filed: 05/14/22 10:15> Procedures Date of Service Date of Service: 05/14/22 <SHIVAM Bowers Last Filed: 05/14/22 10:15> Progress Note: A&P Assessment and plan (1) Abdominal pain, LLQ: Status: Acute <SHIVAM Bowers Last Filed: 05/14/22 10:15> (2) SBO (small bowel obstruction): Status: Acute <SHIVAM Bowers Last Filed: 05/14/22 10:15> Assessment and Plan: 51-year-old male patient presenting with abdominal distension nausea, vomiting, and abdominal pain. Patient was found to have small-bowel obstruction by CT. Began moving bowels yesterday and started on clear liquids which he is tolerating. His abdomen remains soft and nondistended with very mild left sided tenderness. Will advance to lw residue diet. If tolerating, stable for d/c to home. Patient comfortable with plan. <Ale Nielson PA-C - Last Filed: 05/14/22 10:15> 51-year-old male patient presenting with abdominal distension nausea, vomiting, and abdominal pain. Patient was found to have small-bowel obstruction by CT. Began moving bowels yesterday and started on clear liquids which he is tolerating. His abdomen remains soft and nondistended with very mild left sided tenderness. Will advance to lw residue diet. If tolerating, stable for d/c to home. Patient comfortable with plan. Patient did well with liquid diet without nausea or vomiting. Agree with advancing diet. Patient will follow-up with Dr. Nowak upon discharge to discuss hernia repair. <Earnest Molina MD - Last Filed: 05/14/22 11:49> Time Spent With Patient Time: Total time spent is greater than 50% in coordination of care (as documented) at patient's floor/unit and/or counseling patient: <Ale Nielson PA-C - Last Filed: 05/14/22 10:15> Quality Stroke Does the patient have a stroke diagnosis?: No <Ale Nielson PA-C - Last Filed: 05/14/22 10:15> VTE Prior VTE?: No <Ale Nielson PA-C - Last Filed: 05/14/22 10:15> VTE Risk Level:: Surgical - moderate <Ale Nielson PA-C - Last Filed: 05/14/22 10:15> VTE Device Contraindication: N/A - Device Ordered <Ale Nielson PA-C - Last Filed: 05/14/22 10:15> VTE Drug Contraindication: N/A - Med Ordered <Ale Nielson PA-C - Last Filed: 05/14/22 10:15>
[2022-05-14] MEDS: 0.9 % Sodium Chloride Flush 3 ML SYRINGE IVFLUSH ×2 (15:17→19:38)
[2022-05-14] MEDS: oxyCODONE HCl Immed Release 5 MG TABLET PO (19:43)
[2022-05-15 03:12] VITALS: BP 119/74; PULSE 76; RESP 18; TEMP 36.7; O2SAT 92
[2022-05-15] MEDS: oxyCODONE HCl Immed Release 5 MG TABLET PO ×2 (03:29→11:31)
[2022-05-15 07:28] VITALS: BP 136/80; PULSE 74; RESP 18; TEMP 37.1; O2SAT 93
[2022-05-15 07:40] VITALS: PULSE 110; RESP 18; O2SAT 94
[2022-05-15] MEDS: Fluticasone/Vilanterol 200/25 BLST.W.DEV 1 PUFF INHALE (07:40)
[2022-05-15] MEDS: 0.9 % Sodium Chloride Flush 3 ML SYRINGE IVFLUSH (07:50)
[2022-05-15] MEDS: Enoxaparin Sodium 40 MG/0.4 ML SYRINGE SUBCUT (07:50)
[2022-05-15] MEDS: Morphine Sulfate 4 MG/ML CARTRIDGE IVPUSH (07:51)
[2022-05-15] MEDS: Montelukast Sodium 10 MG TABLET PO (07:51)
[2022-05-15] MEDS: hydroCHLOROthiazide 25 MG TABLET PO (07:51)
[2022-05-15] MEDS: Escitalopram Oxalate 10 MG TABLET PO (07:51)
[2022-05-15] MEDS: Loratadine 10 MG TABLET PO (07:51)
[2022-05-15] MEDS: Omeprazole 20 MG CAPSULE.DR PO (07:51)
--- NOTE | 2022-05-15 07:52 | P.PNGS_ITS ---
Subjective Subjective Date of Service: 05/15/22 Interval history: Patient reports some abdominal pain in the left lower quadrant. He was able to tolerate a regular diet without nausea or vomiting. Had 2 bowel movements yesterday no bowel movement today. Physical Exam Vital Signs: Vital Signs: Last Vital Signs Temp 98.7 F 05/15/22 07:28 Pulse 110 H 05/15/22 07:40 Resp 18 05/15/22 07:40 BP 136/80 05/15/22 07:28 Pulse Ox 93 05/15/22 07:28 O2 Del Method 05/15/22 07:28 O2 Flow Rate 2 05/12/22 19:38 BMI result Body Mass Index 48.3 Const: General: comfortable Nutritional Appearance: well nourished Orientation/consciousness: patient oriented x3 Limitations: no limitations Resp: Effort & Inspection: normal respiratory effort GI: Other: Hernia left lower quadrant is reduced. Inspection: Yes normal to inspection Palpation (GI): Soft to palpation, not firm, nontender, no guarding and not rigid Skin: Other: Warm, dry, no rash Neuro: General: patient oriented x3 Extrem: Other: No peripheral edema Objective Data Active Medications Acetaminophen (Acetaminophen 325 Mg Tablet) 650 mg PO Q6H PRN PRN Reason: Pain, Mild (Pain Scale 1-3) Last Admin: 05/13/22 20:00 Dose: 650 mg Documented By: SULAIMAN Albuterol Sulfate (Albuterol Sulfate 90 Mcg 8 Gm Inhaler) 2 puff INHALE Q6H PRN PRN Reason: Respiratory Distress Enoxaparin Sodium (Enoxaparin Sodium 40 Mg/0.4 Ml Syringe) 40 mg SUBCUT Q24H [facility] Last Admin: 05/14/22 08:23 Dose: 40 mg Documented By: SARAH Escitalopram Oxalate (Escitalopram Oxalate 10 Mg Tablet) 10 mg PO DAILY [facility] Last Admin: 05/14/22 08:23 Dose: 10 mg Documented By: SARAH Fluticasone/Vilanterol (Fluticasone/Vilanterol 200/25 Blst.W.Dev) 1 puff INHALE DAILY [facility] Last Admin: 05/15/22 07:40 Dose: 1 puff Documented By: MELQUIADES Hydrochlorothiazide (Hydrochlorothiazide 25 Mg Tablet) 25 mg PO DAILY [facility]; Protocol Last Admin: 05/14/22 08:23 Dose: 25 mg Documented By: SARAH Loratadine (Loratadine 10 Mg Tablet) 10 mg PO DAILY [facility] Last Admin: 05/14/22 08:23 Dose: 10 mg Documented By: SARAH Montelukast Sodium (Montelukast Sodium 10 Mg Tablet) 10 mg PO DAILY [facility] Last Admin: 05/14/22 08:23 Dose: 10 mg Documented By: SARAH Morphine Sulfate (Morphine Sulfate 4 Mg/Ml Cartridge) 4 mg IVPUSH Q3H PRN; Protocol PRN Reason: Pain, Severe (Pain Scale 7-10) Last Admin: 05/14/22 23:31 Dose: 4 mg Documented By: SULAIMAN Omeprazole (Omeprazole 20 Mg Capsule.Dr) 20 mg PO BID [facility] Last Admin: 05/14/22 19:38 Dose: 20 mg Documented By: SULAIMAN Ondansetron HCl (Ondansetron Hcl 4 Mg/2 Ml Vial) 4 mg IVPUSH QID PRN PRN Reason: Nausea Last Admin: 05/13/22 07:03 Dose: 4 mg Documented By: BRI Oxycodone HCl (Oxycodone Hcl Immed Release 5 Mg Tablet) 5 mg PO Q6H PRN PRN Reason: Pain, Moderate (Pain Scale 4-6 Last Admin: 05/15/22 03:29 Dose: 5 mg Documented By: SULAIMAN Pharmacy Consult (Consult Rx Perform Med Rec) 1 each MISCELLANE ONCE PRN PRN Reason: Consult order Sodium Chloride (0.9 % Sodium Chloride Flush 3 Ml Syringe) 3 ml IVFLUSH QSHIFT [facility] Last Admin: 05/14/22 19:38 Dose: 3 ml Documented By: SULAIMAN Zolpidem Tartrate (Zolpidem Tartrate 5 Mg Tablet) 5 mg PO BEDTIME PRN PRN Reason: Insomnia Last Admin: 05/13/22 19:53 Dose: 5 mg Documented By: SULAIMAN Labs CBC & Chem 7: 05/13/22 05:25 05/13/22 05:25 Microbiology Microbiology Results: Microbiology 05/12/22 06:18 Blood Culture - Preliminary Blood - Venous No growth after 48 hours. 05/12/22 06:18 Blood Culture - Preliminary Blood - Venous No growth after 48 hours. Procedures Date of Service Date of Service: 05/15/22 Progress Note: A&P Assessment and plan (1) SBO (small bowel obstruction): Status: Acute (2) Incarcerated hernia: Status: Acute Plan Patient admitted with small-bowel obstruction possibly due to adhesions or hernia. The hernias now reduced and nontender. Abdomen is soft and nondistended. Patient is tolerating regular diet without nausea or vomiting. He has had several bowel movements since admission. He is ready for discharge. He will follow up with Dr. Nowak for possible hernia repair. Time Spent With Patient Time: Total time spent is greater than 50% in coordination of care (as documented) at patient's floor/unit and/or counseling patient: Quality Stroke Does the patient have a stroke diagnosis?: No VTE Prior VTE?: No VTE Risk Level:: Surgical - moderate VTE Device Contraindication: N/A - Device Ordered VTE Drug Contraindication: N/A - Med Ordered
--- NOTE | 2022-05-15 08:34 | P.DS_ITS ---
DS: Providers Provider Date of Service: 05/15/22 Date of admission: 05/12/22 08:04 Primary care physician: Tamar Physician Attending physician on admission: Earnest Molina Attending physician on discharge: Earnest Molina DS: Diagnosis Discharge Diagnosis (1) Abdominal pain, LLQ: Status: Acute (2) SBO (small bowel obstruction): Status: Acute DS: Summary Hospital Course Hospital Course: BRIEF HPI: Brady Dale is a 51 year old male presenting to the ER with complaints of abdominal pain.? He reports awaiting the surgery and was required to lose approximately 50 lb prior to having the surgery.? He is currently under the care of the weight loss center and has already lost approximately 20 lb over the last several weeks.? He reports eating some chicken breast yesterday and soon after developing severe abdominal pain and abdominal distension.? He reports a prior history of perforated sigmoid diverticulitis approximately 8 years ago.? 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 After approximately urine half he underwent reversal of the colostomy.? S this time his developed several incisional hernias occluding at the ostomy site.? He was recently evaluated by Dr. Nowak for repair of this recurrent hernia.? Upon presentation today patient was found to have a distended left lower quadrant incisional hernia which is not able to be reduced.? A CT abdomen and pelvis was obtained.? This revealed distended loops of small bowel proximally with decompressed distal small bowel.? A large dilated stomach was also identified.? Findings were suggestive of a small-bowel obstruction.? Laboratories revealed normal WBC and a normal lactic acid.? HOSPITAL COURSE: The patient was admitted to the surgical service for further management of the small-bowel obstruction with nasogastric tube decompression, IV hydration, and possible repair of the recurrent incisional hernias. NGT insertion was attempted but was aborted as the patient was unable to tolerate. The patient vomited large amounts multiple times. He then had two very large bowel movements. Following this, the patient reported improvement in pain and no further nausea/vomiting. He was started on a clear liquid diet which he was tolerating. He continued to pass flatus and move his bowels. The following day he was advanced to a low residue solid diet. He remained asymptomatic with good GI function. His abdomen remained benign and hernias reduced. He felt ready for discharge. He was discharged to home on 05/15/22 in stable condition. He is to f/u with Dr. Nowak upon discharge regarding his incisional hernia. Status at Discharge Functional status at discharge: independent ambulation Overall status at discharge: patient is progressing back to baseline Time Spent with Patient Time attestation: Total time spent providing and/or coordinating discharge services: Discharge coordination time: Greater than 30 minutes Quality: Safe Use of Opioids Does Pt have an Active Cancer Diagnosis on the Problem List?: No Quality: Stroke Does the patient have a stroke diagnosis?: No Physical Exam Vital Signs: Vital Signs: Last Vital Signs Temp 97.0 F 05/14/22 07:48 Pulse 78 05/14/22 07:48 Resp 18 05/14/22 07:48 BP 115/64 05/14/22 07:48 Pulse Ox 92 05/14/22 07:48 O2 Del Method 05/14/22 07:48 O2 Flow Rate 2 05/12/22 19:38 BMI result Body Mass Index 48.3 Const: General: comfortable, no acute distress and alert Resp: Effort & Inspection: normal respiratory effort GI: Inspection: No distended Palpation (GI): Soft to palpation, nontender, no guarding and not rigid Skin: General skin exam: no rashes or lesions noted DS: Data Data Completed and Pending Completed studies during hospitalization [Text1]: Procedures Drainage of Abdomen Subcutaneous Tissue and Fascia, Percutaneous Approach (05/27/20) Release Peritoneum, Open Approach (05/08/20) Supplement Abdominal Wall with Synthetic Substitute, Open Approach (05/08/20) Labs on day of discharge: Preliminary micro results at discharge 05/12/22 06:18 Blood Culture - Preliminary Blood - Venous No growth after 48 hours. 05/12/22 06:18 Blood Culture - Preliminary Blood - Venous No growth after 48 hours. Discharge Plan Discharge Anticipated Discharge Date/Time: 05/15/22 11:04 Patient Disposition: Home, Self-Care Discharge Diagnosis: SBO Referrals: Benson Nowak MD [Physician] - None ( NEEDED) Physician,Unknown J [Primary Care Provider] - 1 Week Discharge Medications: Continued cholecalciferol (vitamin D3) 125 mcg (5,000 unit) capsule 125 mcg PO DAILY Qty: 90 1RF polyethylene glycol 3350 [Miralax] 17 gram/dose powder 17 g PO BID Qty: 119 0RF acetaminophen [Tylenol Extra Strength] 500 mg tablet 1,000 mg PO QID PRN (Reason: fever or pain) Qty: 14 0RF amoxicillin-pot clavulanate 875-125 mg tablet 1 tab PO BID Qty: 20 0RF albuterol sulfate [ProAir HFA] 90 mcg/actuation HFA aerosol inhaler 2 puff inhalation Q6H PRN (Reason: Respiratory Distress) hydrochlorothiazide 25 mg tablet 25 mg PO DAILY docusate sodium [Colace] 100 mg capsule 100 mg PO BID loratadine [Claritin] 10 mg tablet 10 mg PO DAILY montelukast [Singulair] 10 mg tablet 10 mg PO DAILY escitalopram oxalate [Lexapro] 10 mg tablet 10 mg PO DAILY omeprazole 20 mg capsule,delayed release(DR/EC) 20 mg PO DAILY@0630 fluticasone propion-salmeterol [Wixela Inhub] 500-50 mcg/dose blister with de vice 1 inh inhalation BID epinephrine [EpiPen] 0.3 mg/0.3 mL auto-injector 0.3 mg IM Q4H PRN (Reason: Anaphylaxis) naloxone [Narcan] 4 mg/actuation spray,non-aerosol 1 spray intranasal Q2M PRN (Reason: Opioid Overdose) Rx Instructions: spray 1 dose into ONE nostril; alternate nostrils w each dose until help arrives terbinafine HCl [Antifungal (terbinafine)] 1 % cream 1 appl topical BID ibuprofen 800 mg tablet 800 mg PO Q6H PRN (Reason: Pain) Rx Instructions: administer with food tramadol 50 mg tablet 50 mg PO BID PRN (Reason: Pain, Moderate) Discharge Orders: Discharge Order (Routine); Ordered 05/15/22 Ordered By: Ale Nielson Diet: Advance to usual diet Activity on Discharge: As tolerated Stand Alone Forms: Patient Portal Discharge page Care Plan Goals: Return to baseline health and gradual return to activity . Health Concerns: SBO incisional hernia obesity Plan of Treatment: advance diet management of incisional hernia Assessment: Improved
[2022-05-15 11:13] VITALS: BP 124/77; PULSE 73; RESP 18; TEMP 36.8; O2SAT 91
--- NOTE | 2022-05-15 11:33 | MHC.CM.PN ---
IMM DELIVERED PT MEDICALLY CLEARED FOR DC HOME, NO SERVICES. FAMILY WILL TRANSPORT HOME
== END 2022-05-15 14:54 | disposition home or self-care (01) | DRG 395 ==
LOC: HO.ED 07:32 → HO.EDOVER 08:10 → HO.S3 15:11
PROVIDERS: Student in an Organized Health Care Education/Training Program; Admitting Provider Surgery; Emergency Provider Emergency Medicine; PCP Family Medicine; Visit Provider Surgery
DX: K43.0 Incisional hernia with obstruction, without gangrene (principal); F41.9 Anxiety disorder, unspecified; M10.9 Gout, unspecified; J45.909 Unspecified asthma, uncomplicated; Z20.822 Contact with and (suspected) exposure to COVID-19; Z87.891 Personal history of nicotine dependence; Z79.51 Long term (current) use of inhaled steroids; Z79.899 Other long term (current) drug therapy
CPT/HCPCS: 36415; 74177; 80048; 80053; 81003; 83605; 83690; 85025; 85610; 87040; 87635; 94640; 96361; 96374; 99285; J1650; J2270; J2405; J3010; Q9967

== ENCOUNTER → 2022-05-30 10:34 | Outpatient (BNVA) | payer OTHER, SELFPAY | PROVIDERS: PCP Family Medicine; Visit Provider Physician Assistant Surgical | DX: E66.01 Morbid (severe) obesity due to excess calories (principal); Z68.42 Body mass index [BMI] 45.0-49.9, adult | CPT/HCPCS: 99212 ==

== ENCOUNTER → 2022-06-21 13:26 | Outpatient (BNVA) | payer OTHER, SELFPAY | PROVIDERS: PCP Family Medicine; Visit Provider Dietitian, Registered | DX: E66.01 Morbid (severe) obesity due to excess calories (principal) | CPT/HCPCS: 97802 ==

== ENCOUNTER → 2022-06-29 14:22 | Outpatient (BNVA) | payer OTHER, SELFPAY | PROVIDERS: PCP Family Medicine; Referring Provider Family Medicine; Visit Provider Physician Assistant Surgical | DX: E66.01 Morbid (severe) obesity due to excess calories (principal); Z68.42 Body mass index [BMI] 45.0-49.9, adult | CPT/HCPCS: 99212 ==

== ENCOUNTER 2022-07-13 13:12 | Outpatient (REF) | payer OTHER, SELFPAY ==
--- NOTE | ~2022-07-13 | XR_ITS ---
EXAMINATION: XR CHEST on 07/13/2022 XR CHEST ON 07/16/2022 CLINICAL INFORMATION: Cough COMPARISON: 05/09/2022 TECHNIQUE: 2 views of the chest were obtained on 07/13/2022 and 07/16/2022 FINDINGS: Normal symmetric lung volumes. No parenchymal consolidation. No pleural effusion. No pneumothorax. Cardiomediastinal silhouette and pulmonary vascularity are within normal limits. No acute osseous abnormalities. XR/XR chest 2V IMPRESSION: Clear lungs on both exams
== END 2022-07-13 13:13 | disposition home or self-care (01) ==
LOC: HO.XRAY 13:12
PROVIDERS: PCP Family Medicine; Visit Provider Family Medicine
DX: R06.2 Wheezing (principal)
CPT/HCPCS: 71046

== ENCOUNTER → 2022-07-16 13:33 | Outpatient (BNVA) | payer OTHER, SELFPAY | PROVIDERS: PCP Family Medicine; Referring Provider Internal Medicine; Visit Provider Surgery | DX: K43.2 Incisional hernia without obstruction or gangrene (principal) | CPT/HCPCS: 99212 ==

== ENCOUNTER 2022-07-16 18:27 | Emergency (ER) | payer OTHER, SELFPAY ==
--- NOTE | 2022-07-16 | ECG_ITS ---
Test Reason : CHEST PAIN Blood Pressure : / mmHG Vent. Rate : 087 BPM Atrial Rate : 087 BPM P-R Int : 176 ms QRS Dur : 088 ms QT Int : 352 ms P-R-T Axes : 032 -11 005 degrees QTc Int : 423 ms Sinus rhythm with occasional Premature ventricular complexes Otherwise normal ECG When compared with ECG of 09-MAY-2022 00:36, Premature ventricular complexes are now Present Referred By: Generic ED Physician Electronically Signed By:DONALD OLIVER MD
--- NOTE | ~2022-07-16 | XR_ITS ---
EXAMINATION: XR CHEST on 07/13/2022 XR CHEST ON 07/16/2022 CLINICAL INFORMATION: Cough COMPARISON: 05/09/2022 TECHNIQUE: 2 views of the chest were obtained on 07/13/2022 and 07/16/2022 FINDINGS: Normal symmetric lung volumes. No parenchymal consolidation. No pleural effusion. No pneumothorax. Cardiomediastinal silhouette and pulmonary vascularity are within normal limits. No acute osseous abnormalities. XR/XR chest 2V IMPRESSION: Clear lungs on both exams
[2022-07-16 20:25] VITALS: BP 140/84; PULSE 95; RESP 16; TEMP 36.9; O2SAT 94; BMI 46.1
--- NOTE | 2022-07-16 20:25 | ED_ITS ---
HPI - General Adult General Chief complaint: Upper Respiratory Symptoms <Marion Villafana MD - Last Filed: 07/16/22 20:32> Stated complaint: chest congestion,cough,ear pain <Marion Villafana MD - Last Filed: 07/16/22 20:32> Time Seen by Provider: 07/17/22 03:34 <Marion Villafana MD - Last Filed: 07/16/22 20:32> Source: patient <Petr Tavarez MD - Last Filed: 07/17/22 04:03> Mode of arrival: ambulatory <Petr Tavarez MD - Last Filed: 07/17/22 04:03> Limitations: no limitations <Petr Tavarez MD - Last Filed: 07/17/22 04:03> History of Present Illness HPI narrative: 51-year-old male came in for evaluation of shortness of breath and wheezing. For the last 2-3 days patient been having wheezing and difficulty breathing with exertion, patient been coughing with no production of sputum, no fever chills, patient had recent exposure to family member was flu A. <Petr Tavarez MD - Last Filed: 07/17/22 04:03> Related Data Home medications: Home Medications Medication Instructions Recorded Confirmed albuterol sulfate 90 mcg/actuation 2 puff inhalation Q6H PRN 03/26/22 05/30/22 aerosol inhaler (ProAir HFA) Respiratory Distress docusate sodium 100 mg capsule 100 mg PO BID 03/26/22 05/30/22 (Colace) epinephrine 0.3 mg/0.3 mL 0.3 mg IM Q4H PRN Anaphylaxis 03/26/22 05/30/22 injection, auto-injector (EpiPen) escitalopram oxalate 10 mg tablet 10 mg PO DAILY 03/26/22 05/30/22 (Lexapro) fluticasone 500 mcg-salmeterol 50 1 inh inhalation BID 03/26/22 05/30/22 mcg/dose blistr powdr for inhalation (Wixela Inhub) hydrochlorothiazide 25 mg tablet 25 mg PO DAILY 03/26/22 05/30/22 ibuprofen 800 mg tablet 800 mg PO Q6H PRN Pain 03/26/22 05/30/22 loratadine 10 mg tablet (Claritin) 10 mg PO DAILY 03/26/22 05/30/22 montelukast 10 mg tablet 10 mg PO DAILY 03/26/22 05/30/22 (Singulair) naloxone 4 mg/actuation nasal 1 spray intranasal Q2M PRN Opioid 03/26/22 05/30/22 spray (Narcan) Overdose omeprazole 20 mg capsule,delayed 20 mg PO DAILY@0630 03/26/22 05/30/22 release tramadol 50 mg tablet 50 mg PO BID PRN Pain, Moderate 03/26/22 05/30/22 Previous Rx's Medication Instructions Recorded polyethylene glycol 3350 17 17 g PO BID #119 grams 05/19/21 gram/dose oral powder (Miralax) acetaminophen 500 mg tablet 1,000 mg PO QID PRN fever or pain 02/27/22 (Tylenol Extra Strength) #14 tabs cholecalciferol (vitamin D3) 125 125 mcg PO DAILY #90 caps 05/02/22 mcg (5,000 unit) capsule oxycodone 5 mg tablet 5 mg PO Q6H PRN Pain, Moderate 05/15/22 (Pain Scale 4-6 #15 tabs allopurinol 100 mg tablet 200 mg PO DAILY #60 tabs 07/10/22 oseltamivir 75 mg capsule (Tamiflu) 75 mg PO BID 5 days #10 caps 07/17/22 prednisone 20 mg tablet 20 mg PO BID #10 tabs 07/17/22 <Marion Villafana MD - Last Filed: 07/16/22 20:32> Allergies/adverse reactions: Allergies Allergy/AdvReac Type Severity Reaction Status Date / Time egg [EGGS] Allergy Unknown ITCHY Verified 06/29/22 14:31 THROAT,SWELLING LIPS JANELL cooking spray Allergy Unknown swelling Uncoded 04/26/22 13:25 in mouth/tongue <Marion Villafana MD - Last Filed: 07/16/22 20:32> Review of Systems Review of Systems: All other systems are reviewed and are negative Constitutional: Reports as per HPI and Reports no additional constitutional complaints Eyes: Reports as per HPI and Reports no additional eye complaints Reports system reviewed and no additional complaints, except as documented Cardiovascular: Reports as per HPI and Reports no additional cardiovascular complaints Respiratory: Reports as per HPI and Reports no additional respiratory complaints Gastrointestinal: Reports as per HPI and Reports no additional gastrointestinal complaints Genitourinary: Reports no additional female genitourinary complaints Musculoskeletal: Reports no additional musculoskeletal complaints Skin/Breast: Reports system reviewed and no additional complaints, except as docu Psychiatric: Reports no additional psychiatric complaints Endocrine: Reports no additional endocrine complaints Hematologic/Lymphatic: Reports no additional hematologic/lymphatic complaints Allergic/Immunologic: Reports no additional allergic/immunologic complaints Reports system reviewed and no additional complaints, except as documented and Reports Abnormal speech present <Petr Tavarez MD - Last Filed: 07/17/22 04:03> [facility] Past Medical History Medical History: Medical History Abdominal pain, LLQ Anxiety Asthma Gout Incisional hernia Incisional hernia Incisional pain Morbid obesity due to excess calories Obesity Obstructive sleep apnea Open wound anterior abdominal wall SBO (small bowel obstruction) SBO (small bowel obstruction) <Marion Vilalfana MD - Last Filed: 07/16/22 20:32> Surgical History: Surgical History H/O hernia repair Hx of carpal tunnel repair Status post Hattie's procedure <Marion Villafana MD - Last Filed: 07/16/22 20:32> Family History Family History: Family History Mother Arthritis Father Arthritis Maternal Grandfather History of prostate cancer Maternal Grandmother History of breast cancer <Marion Villafana MD - Last Filed: 07/16/22 20:32> Social History Social History: Social History Household Members: Significant Other, Family and Children Housing: Apartment Do you presently have visiting nurse or other home services: No Alcohol intake: former Year quit: 2019 Patient Tobacco Use Status: Former Tobacco user Quit Date: 20 years ago Second Hand Smoke Exposure: No Substance Use Type: Marijuana Advance Directives: No service: No Current occupational status: disabled 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 [employer] <Marion Villafana MD - Last Filed: 07/16/22 20:32> Physical Exam ED Vital Signs: Vital Signs - 24 hr 07/16/22 20:25 07/17/22 01:25 07/17/22 02:14 Temperature 98.5 F 97.5 F 98.2 F Pulse Rate 95 71 78 Respiratory Rate 16 18 18 Blood Pressure 140/84 H 121/76 125/79 Pulse Oximetry 94 96 94 Oxygen Delivery Method Room Air Room Air Room Air BMI result Body Mass Index 46.1 <Marion Villafana MD - Last Filed: 07/16/22 20:32> Vital Signs - 24 hr 07/16/22 20:25 07/17/22 01:25 07/17/22 02:14 Temperature 98.5 F 97.5 F 98.2 F Pulse Rate 95 71 78 Respiratory Rate 16 18 18 Blood Pressure 140/84 H 121/76 125/79 Pulse Oximetry 94 96 94 Oxygen Delivery Method Room Air Room Air Room Air BMI result Body Mass Index 46.1 Vital signs have been reviewed as appeared to be correct. Blood pressure normal. Heart rate normal. Respiration rate normal. Temperature normal. Oxygen saturation normal. <Petr Tavarez MD - Last Filed: 07/17/22 04:03> Appearance: Alert. Oriented X3. No acute distress. Head: Normal external exam. Normocephalic. Atraumatic. No Kamara signs noted. No raccoon eyes noted Eyes: PERRLA. EOMI. Conjunctiva and sclera normal. Eyelids normal. ENT: TM's Normal. Pharynx normal. Uvula midline. Moist mucous membranes. No trismus noted. No drooling noted. No muffled voice noted. Neck: Normal inspection. Neck supple. FROM. No adenopathy. Thyroid Normal. No meningeal signs. No neck mass noted. CVS: Normal heart rate and rhythm. Heart sound normal. No murmurs noted. Pulses normal throughout. Respiratory: No respiratory distress. Painless inspiration. Breath sounds normal. Expiratory wheezing with prolonged expiration.. Chest nontender. No accessory muscle usage noted or decreased air movement noted. Abdomen: Soft and nontender. Bowel sounds normal in all 4 quadrants. No distention noted. No organomegaly noted. No visible injury noted. Back: No CVA tenderness. Full range of motion noted. Skin: Skin warm and dry. Normal skin color. Normal skin turgor. No rashes/lesions/lacerations noted. Extremities: No lower extremity edema. Extremities exhibit normal range of motion. Extremities nontender. Neuro: Oriented X 3. Cranial nerve exam: II-XII are grossly intact No motor deficit. No sensory deficit. Reflexes normal. <Petr Tavarez MD - Last Filed: 07/17/22 04:03> Course Course Course Narrative: 51M and on Saturday had chest pain and facial pain, denies fevers, chills, cough+, coughing causes chest pain. Patient just completed prednisone treatment and his kids have had flu. VS Reviewed GEN: NAD PULM: Good inspiratory effort, scattered rhonchi CVS: RRR, no murmurs - labs, CXR, EKG <Marion Villafana MD - Last Filed: 07/16/22 20:32> Reevaluation(s) Reevaluation #1: 51-year-old male with shortness of breath and coughing, physical exam is consistent with bronchitis/asthma, patient is positive for influenza A, will start the patient on Tamiflu and prednisone patient has enough albuterol at home. <Petr Tavarez MD - Last Filed: 07/17/22 04:03> Time: 04:00 <Petr Tavarez MD - Last Filed: 07/17/22 04:03> Medical Decision Making Medical Decision Making Differential Diagnoses: Differential diagnosis Differential Diagnosis: The differential diagnosis associated with the patient?s presentation includes: Influenza a, bronchitis, asthma exacerbation, pneumonia <Petr Tavarez MD - Last Filed: 07/17/22 04:03> Independent interpretation of EKG, rhythm strip, radiology study: Independent interp EKG,rhythm strip, radiology study I performed an independent interpretation of the: Plain X-Ray My interpretation is no acute pulmonary disease. <Petr Tavarez MD - Last Filed: 07/17/22 04:03> Discharge Plan Discharge Clinical Impression: Influenza A <Marion Villafana MD - Last Filed: 07/16/22 20:32> Patient Disposition: Home, Self-Care <Marion Villafana MD - Last Filed: 07/16/22 20:32> Instructions: Influenza (ED) <Marion Villafana MD - Last Filed: 07/16/22 20:32> Prescriptions: New oseltamivir [Tamiflu] 75 mg capsule 75 mg PO BID 5 Days Qty: 10 0RF prednisone 20 mg tablet 20 mg PO BID Qty: 10 0RF No Action cholecalciferol (vitamin D3) 125 mcg (5,000 unit) capsule 125 mcg PO DAILY Qty: 90 1RF allopurinol 100 mg tablet 200 mg PO DAILY Qty: 60 1RF polyethylene glycol 3350 [Miralax] 17 gram/dose powder 17 g PO BID Qty: 119 0RF acetaminophen [Tylenol Extra Strength] 500 mg tablet 1,000 mg PO QID PRN (Reason: fever or pain) Qty: 14 0RF oxycodone 5 mg Tablet 5 mg PO Q6H PRN (Reason: Pain, Moderate (Pain Scale 4-6) Qty: 15 0RF Rx Instructions: Partial Fill upon patient request. albuterol sulfate [ProAir HFA] 90 mcg/actuation HFA aerosol inhaler 2 puff inhalation Q6H PRN (Reason: Respiratory Distress) hydrochlorothiazide 25 mg tablet 25 mg PO DAILY docusate sodium [Colace] 100 mg capsule 100 mg PO BID loratadine [Claritin] 10 mg tablet 10 mg PO DAILY montelukast [Singulair] 10 mg tablet 10 mg PO DAILY escitalopram oxalate [Lexapro] 10 mg tablet 10 mg PO DAILY omeprazole 20 mg capsule,delayed release(DR/EC) 20 mg PO DAILY@0630 fluticasone propion-salmeterol [Wixela Inhub] 500-50 mcg/dose blister with device 1 inh inhalation BID epinephrine [EpiPen] 0.3 mg/0.3 mL auto-injector 0.3 mg IM Q4H PRN (Reason: Anaphylaxis) naloxone [Narcan] 4 mg/actuation spray,non-aerosol 1 spray intranasal Q2M PRN (Reason: Opioid Overdose) Rx Instructions: spray 1 dose into ONE nostril; alternate nostrils w each dose until help arrives ibuprofen 800 mg tablet 800 mg PO Q6H PRN (Reason: Pain) Rx Instructions: administer with food tramadol 50 mg tablet 50 mg PO BID PRN (Reason: Pain, Moderate) <Marion Villafana MD - Last Filed: 07/16/22 20:32> Referrals: [facility] [Primary Care Provider] - <Marion Villafana MD - Last Filed: 07/16/22 20:32>
[2022-07-16 20:53] LABS: MANUAL DIFF FLAG NO
[2022-07-16 20:54] LABS: Basophils Percent Auto 0.3 % (0-2); Eosinophils Absolute Auto 0.3 X10*3/uL (0.0-0.4); Hematocrit 41.8 % (42.0-52.0); Hemoglobin 13.8 g/dl (14.0-18.0); Imm Gran Abs Auto 0.05 X10*3/uL (0.00-0.03); Imm Gran Pct Auto 0.7 % (0.0-0.4); Lymphocytes Absolute Auto 2.5 X10*3/uL (1.2-4.9); Lymphocytes Percent Auto 32.4 % (20-40); Mean Corpuscular Hemoglobin 28.5 pg (27.0-33.0); Mean Corpuscular Volume 86.4 fL (80.0-98.0); Mean Platelet Volume 8.4 fL (9.4-12.4); Monocytes Absolute Auto 0.9 X10*3/uL (0.1-1.2); Monocytes Percent Auto 11.5 % (2-11); Neutrophils Absolute Auto 3.9 x10*3/uL (2.0-8.3); Neutrophils Percent Auto 51.1 % (45-73); Platelet Count 275 X10*3/uL (160-400); Red Blood Count 4.84 X10*6/uL (4.60-5.80); Red Cell Distribution Width 14.6 % (11.0-16.0); White Blood Count 7.7 X10*3/uL (4.8-10.8)
[2022-07-16 21:25] LABS: Alanine Aminotransferase 23 U/L (0-40); Alkaline Phosphatase 79 U/L (39-117); Anion Gap 16 (12-20); Aspartate Amino Transferase 28 U/L (5-37); B Type Natriuretic Peptide < 10 pg/mL (<100); Blood Urea Nitrogen 13 mg/dL (9-16); Calcium 9.2 mg/dL (8.4-10.2); Carbon Dioxide 28 mmol/L (22-29); Chloride 100 mmol/L (96-108); Creatinine Clr Calc Pharmacy 131.6; Estimated Glomerular Filt Rate > 60; Glucose Random 80 mg/dL (60-115); Potassium 3.6 mmol/L (3.3-5.1); Sodium 140 mmol/L (135-145); Total Protein 7.6 g/dL (6.5-8.0)
[2022-07-16 21:28] LABS: Bilirubin Total 0.3 mg/dL (0.0-1.0)
[2022-07-16 21:41] LABS: Influenza A PCR POSITIVE (Negative); Influenza B PCR NEGATIVE (Negative); Resp Syncy Virus RNA Qual PCR NEGATIVE (Negative); SARS COV2 PCR INHOUSE NEGATIVE (Negative)
[2022-07-17 01:25] VITALS: BP 121/76; PULSE 71; RESP 18; TEMP 36.4; O2SAT 96
[2022-07-17 02:14] VITALS: BP 125/79; PULSE 78; RESP 18; TEMP 36.8; O2SAT 94
--- OUTSIDE RECORDS SUMMARY | 2022-07-17 02:15 | XMS_ITS ---
:1970 Author Care Team Providers Name Role Phone [facility] Referring Provider [phone] [facility] Referring Provider [phone] Allergies Code Code System Name Reaction Severity Status Onset [id number] RxNorm Egg ? ? Active ? NKDA ? Medications Name Status Start Date Stop Date ? ? acetaminophen 500 mg tablet Active ? Not available TOME DOS TABLETAS POR V A ORAL CUATRO V ECES AL D A CUANDO SEA NECESARIO FOR PAIN OR FEVER amlodipine 5 mg tablet Active ? Not avail able TOME RADHA TABLETA TODOS LOS D amoxicillin 875 mg-potassium clavulanate 125 mg tablet Active ? Not available TOME RADHA TABLETA CADA 12 HORAS aspirin 325 mg tablet,delayed release Active ? Not available TAKE 1 TABLET BY MOUTH EVERY DAY FOR 14 DAYS POST OPERATIVELY Athlete's Foot (terbinafine) 1 % topical cream Active ? Not available APPLY BY TOPICAL ROUTE EVERY DAY TO THE AFFECTED AND SURROUNDING AREAS OF SKIN baclofen 10 mg tablet Active ? Not availa ble TAKE 1 TABLET POR V A ORAL 2 TIMES EVERY DAY NEEDED FOR MUSC LE SPASMS celecoxib 200 mg capsule Active ? Not jude ilable TAKE 1 CAPSULE BY ORAL ROUTE TWICE A DAY NEEDED FOR PAIN diclofenac sodium 75 mg tablet,delayed release Active ? Not available TOME RADHA TABLETA DOS VECES AL D A docusate sodium 100 mg capsule Active ? N ot available TOME RADHA C PSULA DOS VECES AL D A epinephrine 0.3 mg/0.3 mL injection, auto-injector Active ? Not available INJECT 0.3 ML POR V A INTRAMUSCULAR ONCE NEEDED FOR ANAPHYLA XIS escitalopram 10 mg tablet Active ? Not av ailable TOME RADHA TABLETA TODOS LOS D hydrochlorothiazide 25 mg tablet Active ? Not available TOME RADHA TABLETA TODOS LOS D ibuprofen 800 mg tablet Active ? Not avai lable TAKE 1 TABLET POR V A ORAL 4 TIMES EVERY DAY WITH FOOD NEEDE D ipratropium 0.5 mg-albuterol 3 mg (2.5 mg base)/3 mL nebulizatio n soln Active ? Not available USE 1 VIAL VIA NEBULIZER CUATRO VECES AL D A CUANDO SEA NECESAR IO ketorolac 30 mg/mL (1 mL) injection solution Active ? Not available 30 mg IM x 1 levothyroxine 50 mcg tablet Active ? Not available TOME RADHA TABLETA TODOS LOS D levothyroxine 75 mcg tablet Active ? Not available TOME RADHA TABLETA TODOS LOS D lisinopril 10 mg tablet Active ? Not avai lable TOME RADHA TABLETA TODOS LOS D loratadine 10 mg tablet Active ? Not avai lable TOME RADHA TABLETA TODOS LOS D methylprednisolone 4 mg tablets in a dose pack Active ? Not available TOME 6 TABLETAS EL PRIMER D A SEG N LO INDICA EL PAQUETE, Y REDUZCA 1 TABLETA CADA D A POR 6 D montelukast 10 mg tablet Active ? Not jude ilable TOME RADHA TABLETA TODOS LOS D naloxone 4 mg/actuation nasal spray Active ? Not available PLEASE SEE ATTACHED FOR DETAILED DIRECTIONS omeprazole 20 mg capsule,delayed release Active ? Not available TOME RADHA C PSULA TODOS LOS D 30 MINUTES TO 1 HOUR BEFORE A M EAL oxycodone 5 mg tablet Active ? Not availa ble TOME RADHA TABLETA POR V A ORAL CADA SEIS HORAS CUANDO SEA NECESA RENEE FOR PAIN oxycodone-acetaminophen 5 mg-325 mg tablet Active ? Not available PLEASE SEE ATTACHED FOR DETAILED DIRECTIONS prednisone 20 mg tablet Active ? Not avai lable PLEASE SEE ATTACHED FOR DETAILED DIRECTIONS Purelax 17 gram/dose oral powder Active ? Not available MIX 17GRAMS ( CAPFULL) IN A GLASS OF WA TER AND DRINK DOS VECES AL D A DIRECTED tamsulosin 0.4 mg capsule Active ? Not av ailable TOME RADHA C PSULA TODOS LOS D AL ACOSTARSE tizanidine 2 mg capsule Active ? Not avai lable TAKE 1 CAPSULE BY ORAL ROUTE EVERY 8 HOURS NEEDED FOR PAIN topiramate 25 mg tablet Active ? Not avai lable TOME RADHA TABLETA POR V A ORAL TODOS LOS D AL ACOSTARSE tramadol 50 mg tablet Active ? Not availa ble TOME RADHA TABLETA POR V A ORAL TODOS LOS D PARA DOLOR GENESIS CUANDO SEA NECESARIO Wixela Inhub 500 mcg-50 mcg/dose powder for inhalation Active ? Not available TAKE 1 PUFF BY INHALATION ROUTE 2 TIMES EVERY DAY Problems None recorded. Procedures None recorded. Results Lab Results None recorded. Past Encounters Encounter Date Diagnosis Provider 03/10/2022 Pain of Right Knee Joint Vincent Quinonez MD: [address] [place] [address], Ph. [phone] 03/03/2022 Pain of Left Heel Jay Jay Hammond MD: [address] [place] [address], Ph. 02/26/2022 Osteoarthritis of Knee Maame Hodge MD: [address] [place] [address], Ph. 01/30/2022 Chronic Low Back Pain Melissa Erwin MD: [address] [place] [address], Ph. [phone] 01/15/2022 Sciatica Gage Glez MD: [address] [place] [address], Ph. [phone] Social History None recorded. Vaccine List None recorded. Plan of Care Reminders Provider Appointments None recorded. ? ? Lab None recorded. ? ? Referral None recorded. ? ? Procedures None recorded. ? ? Surgeries None recorded. ? ? Imaging None recorded. ? ? Vitals 03/10/2022 11:06AM Urgent Care Blood Pressure 125/81 mm[Hg] 03/03/2022 12:31AM Urgent Care Height Weight Blood Pressure 5 ft 11 in 355 lbs 150/79 mm[Hg] 02/26/2022 07:46PM Urgent Care Blood Pressure 125/92 mm[Hg] 01/30/2022 06:40PM Urgent Care Blood Pressure 157/51 mm[Hg] 01/15/2022 07:51PM Urgent Care Height Weight Blood Pressure (1) 5 ft 6 in (1) 356 lbs (1) 130/87 mm[Hg] (2) 5 ft 6 in (2) 356 lbs (2) 130/87 mm[Hg]
--- NOTE | 2022-07-17 04:38 | PC.NURSE ---
Discharge instructions given and explained to patient. Patient ambulates safely and independently. No apparent distress.
== END 2022-07-17 04:42 | disposition home or self-care (01) ==
PROVIDERS: Student in an Organized Health Care Education/Training Program; Emergency Provider Emergency Medicine
DX: J10.1 Influenza due to other identified influenza virus with other respiratory manifestations (principal); R05.9 Cough, unspecified; H92.03 Otalgia, bilateral; R06.02 Shortness of breath; Z20.822 Contact with and (suspected) exposure to COVID-19; Z79.899 Other long term (current) drug therapy; Z87.891 Personal history of nicotine dependence
CPT/HCPCS: 0241U; 36415; 71046; 80053; 83880; 85025; 93005; 99283; 99284

== ENCOUNTER 2022-07-26 14:11 | Outpatient (REF) | payer OTHER, SELFPAY ==
--- NOTE | ~2022-07-26 | XR_ITS ---
EXAMINATION: XR CHEST CLINICAL INFORMATION: Lower respiratory tract infection COMPARISON: Chest radiographs 07/16/2022, 07/13/2022 TECHNIQUE: 2 views of the chest were obtained. FINDINGS: No airspace consolidation or groundglass opacity or effusion. Heart size normal. Vascularity normal. The hilar and mediastinal contours are unremarkable. No acute bony abnormality. No significant changes. XR/XR chest 2V IMPRESSION: Unremarkable examination.
== END 2022-07-26 14:12 | disposition home or self-care (01) ==
LOC: HO.XRAY 14:11
PROVIDERS: PCP Family Medicine; Visit Provider Emergency Medicine
DX: J22 Unspecified acute lower respiratory infection (principal)
CPT/HCPCS: 71046

== ENCOUNTER 2022-09-09 18:22 | Emergency (ER) | payer OTHER, SELFPAY ==
[2022-09-09 18:31] VITALS: BP 126/86; PULSE 91; RESP 20; TEMP 36.7; O2SAT 96; BMI 45.3
--- NOTE | 2022-09-09 18:31 | ED.URI ---
HPI - URI/Sore Throat General Chief Complaint: Upper Respiratory Symptoms Stated Complaint: covid positive? Time Seen by Provider: 09/09/22 18:38 Source: patient Mode of arrival: ambulatory Limitations: no limitations History of Present Illness HPI Narrative: Patient is a 51-year-old male with past medical history of asthma, and arthritis who presents emergency department for evaluation of upper respiratory symptoms. Symptom onset 3 days ago. Loss of taste/smell, back pain, some shortness of breath upon exertion, body aches, nasal congestion. Has received COVID-19 vaccination x2. Reports at home COVID-19 testing was positive. and children are also ill and have positive testing at home. Related Data Home Medications Medication Instructions Recorded Confirmed albuterol sulfate 90 mcg/actuation 2 puff inhalation Q6H PRN 03/26/22 05/30/22 aerosol inhaler (ProAir HFA) Respiratory Distress docusate sodium 100 mg capsule 100 mg PO BID 03/26/22 05/30/22 (Colace) epinephrine 0.3 mg/0.3 mL 0.3 mg IM Q4H PRN Anaphylaxis 03/26/22 05/30/22 injection, auto-injector (EpiPen) escitalopram oxalate 10 mg tablet 10 mg PO DAILY 03/26/22 05/30/22 (Lexapro) fluticasone 500 mcg-salmeterol 50 1 inh inhalation BID 03/26/22 05/30/22 mcg/dose blistr powdr for inhalation (Wixela Inhub) hydrochlorothiazide 25 mg tablet 25 mg PO DAILY 03/26/22 05/30/22 ibuprofen 800 mg tablet 800 mg PO Q6H PRN Pain 03/26/22 05/30/22 loratadine 10 mg tablet (Claritin) 10 mg PO DAILY 03/26/22 05/30/22 montelukast 10 mg tablet 10 mg PO DAILY 03/26/22 05/30/22 (Singulair) naloxone 4 mg/actuation nasal 1 spray intranasal Q2M PRN Opioid 03/26/22 05/30/22 spray (Narcan) Overdose omeprazole 20 mg capsule,delayed 20 mg PO DAILY@0630 03/26/22 05/30/22 release tramadol 50 mg tablet 50 mg PO BID PRN Pain, Moderate 03/26/22 05/30/22 Previous Rx's Medication Instructions Recorded polyethylene glycol 3350 17 17 g PO BID #119 grams 05/19/21 gram/dose oral powder (Miralax) acetaminophen 500 mg tablet 1,000 mg PO QID PRN fever or pain 02/27/22 (Tylenol Extra Strength) #14 tabs cholecalciferol (vitamin D3) 125 125 mcg PO DAILY #90 caps 05/02/22 mcg (5,000 unit) capsule oxycodone 5 mg tablet 5 mg PO Q6H PRN Pain, Moderate 05/15/22 (Pain Scale 4-6 #15 tabs oseltamivir 75 mg capsule (Tamiflu) 75 mg PO BID 5 days #10 caps 07/17/22 prednisone 20 mg tablet 20 mg PO BID #10 tabs 07/17/22 allopurinol 100 mg tablet 200 mg PO DAILY #60 tabs 08/08/22 Allergies Allergy/AdvReac Type Severity Reaction Status Date / Time egg [EGGS] Allergy Unknown ITCHY Verified 06/29/22 14:31 THROAT,SWELLING LIPS JANELL cooking spray Allergy Unknown swelling Uncoded 04/26/22 13:25 in mouth/tongue Review of Systems Review of Systems: Constitutional: No fever. No chills. No weakness. Positive fatigue. Positive body aches. Positive loss of taste/smell ENT/ Mouth: No Ear Pain, positive Nasal Congestion, no sore throat, No Rhinorrhea, No Swallowing Difficulty Skin: No rash or itching. Cardiovascular: No chest pain. No palpitations. Respiratory: Positive shortness of breath. Positive cough. No sputum production. Gastrointestinal: No nausea. No vomiting. No diarrhea. No abdominal pain. Genitourinary: No burning micturition. No urinary frequency. Neurologic: No headache. No dizziness. No syncope. No numbness or tingling in the extremities. Musculoskeletal: No muscle pain. No back pain. No joint pain or stiffness. Yes all other systems are reviewed and are negative PMFSH Past Medical History Attestation statement: The following information was validated with the patient. Source: old records reviewed Medical History Abdominal pain, LLQ Anxiety Asthma Gout Incisional hernia Incisional hernia Incisional pain Morbid obesity due to excess calories Obesity Obstructive sleep apnea Open wound anterior abdominal wall SBO (small bowel obstruction) SBO (small bowel obstruction) Surgical History H/O hernia repair Hx of carpal tunnel repair Status post Hattie's procedure Family History Family History Mother Arthritis Father Arthritis Maternal Grandfather History of prostate cancer Maternal Grandmother History of breast cancer Social History Social History Household Members: Significant Other, Family and Children Housing: Apartment Do you presently have visiting nurse or other home services: No Alcohol intake: former Year quit: 2019 Patient Tobacco Use Status: Former Tobacco user Quit Date: 20 years ago Second Hand Smoke Exposure: No Substance Use Type: Marijuana Advance Directives: No Advance Directives Information Provided: Yes service: No Current occupational status: disabled 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 No acute distress.?Normal affect. Eyes: Pupils equal, round and reactive to light.? ENT: TM normal bilaterally. Pharynx normal.?? Neck: Normal inspection.? Neck supple.??No cervical adenopathy CVS: Heart sounds normal. Normal heart rate and rhythm.? Pulses normal.?? Respiratory: No respiratory distress.? Lung sounds clear to auscultation bilaterally?? Abdomen: Soft and non-tender. Normoactive bowel sounds. Skin: Skin warm and dry.? Normal skin color.? ? Extremities: No lower extremity edema.? Neuro: Moves all extremities spontaneously. Sensation intact bilaterally. No motor deficits. Ambulates with normal steady gait. Medical Decision Making Medical Decision Making MDM Narrative: Patient is a 51-year-old male presenting for evaluation of upper respiratory symptoms. COVID-19 testing positive, reviewed emergency use authorization treatment with Paxlovid, provided with patient information handout, reviewed potential side effects/complications, patient declines treatment. At this time history and physical exam not consistent with ACS/PE/pneumonia. Well-appearing, nontoxic, afebrile, no tachycardia or tachypnea/hypoxia. Speaking clear full sentences, ambulatory with steady gait. Discussed conservative treatment including rest, hydration, Tylenol/ibuprofen as needed for fever and body aches, saline nasal spray, humidifier, ohxb-wae-[id number] cold medication. Advised to follow-up with primary care provider as needed, discussed reasons to return back to the emergency department. All questions were answered. Patient discharged home in stable condition. Differential Diagnosis Differential Diagnoses: The differential diagnosis associated with the presentation includes (As noted above) Lab Data MDM Lab Attestation statement: I reviewed the patient's lab results. Labs: Lab Results 09/09/22 Range/Units 18:38 COVID-19 ([facility]) Positive A (Negative) COVID-19 Clin Com See Note Independent Historian Clinical information obtained from an independent historian. History obtained from or confirmed by: Spouse Prescription Management I considered prescription management with: Pain Medication and Antiviral (As noted above) Discharge Plan Discharge Clinical Impression: COVID-19 Patient Disposition: Home, Self-Care Instructions: COVID-19 (Coronavirus Disease 2019) (ED) Additional Instructions: COVID-19 testing today is positive, soonest end isolation date is 09/12/2022, given that your symptoms are improving, you are without fever for 24 hour period without the use of Tylenol or ibuprofen. You were offered treatment is Paxlovid, we reviewed emergency use authorization, potential side effects, your provided with patient information handout, however you declined treatment. Be sure to rest, stay well hydrated drinking plenty of fluids, eat small frequent meals. Tylenol/ibuprofen can be used as needed for fever/pain. Pock-ilk-exoifjb cold medications may be helpful as well for symptoms. Saline nasal spray, humidifier may be helpful for nasal congestion. You may return to the emergency department with any new or worsening symptoms or concerns. Follow-up with your primary care provider as needed. Prescriptions: No Action cholecalciferol (vitamin D3) 125 mcg (5,000 unit) capsule 125 mcg PO DAILY Qty: 90 1RF allopurinol 100 mg tablet 200 mg PO DAILY Qty: 60 1RF polyethylene glycol 3350 [Miralax] 17 gram/dose powder 17 g PO BID Qty: 119 0RF acetaminophen [Tylenol Extra Strength] 500 mg tablet 1,000 mg PO QID PRN (Reason: fever or pain) Qty: 14 0RF oxycodone 5 mg Tablet 5 mg PO Q6H PRN (Reason: Pain, Moderate (Pain Scale 4-6) Qty: 15 0RF Rx Instructions: Partial Fill upon patient request. oseltamivir [Tamiflu] 75 mg capsule 75 mg PO BID 5 Days Qty: 10 0RF prednisone 20 mg tablet 20 mg PO BID Qty: 10 0RF albuterol sulfate [ProAir HFA] 90 mcg/actuation HFA aerosol inhaler 2 puff inhalation Q6H PRN (Reason: Respiratory Distress) hydrochlorothiazide 25 mg tablet 25 mg PO DAILY docusate sodium [Colace] 100 mg capsule 100 mg PO BID loratadine [Claritin] 10 mg tablet 10 mg PO DAILY montelukast [Singulair] 10 mg tablet 10 mg PO DAILY escitalopram oxalate [Lexapro] 10 mg tablet 10 mg PO DAILY omeprazole 20 mg capsule,delayed release(DR/EC) 20 mg PO DAILY@0630 fluticasone propion-salmeterol [Wixela Inhub] 500-50 mcg/dose blister with device 1 inh inhalation BID epinephrine [EpiPen] 0.3 mg/0.3 mL auto-injector 0.3 mg IM Q4H PRN (Reason: Anaphylaxis) naloxone [Narcan] 4 mg/actuation spray,non-aerosol 1 spray intranasal Q2M PRN (Reason: Opioid Overdose) Rx Instructions: spray 1 dose into ONE nostril; alternate nostrils w each dose until help arrives ibuprofen 800 mg tablet 800 mg PO Q6H PRN (Reason: Pain) Rx Instructions: administer with food tramadol 50 mg tablet 50 mg PO BID PRN (Reason: Pain, Moderate) Referrals: Patricia Berry MD [Primary Care Provider] -
--- OUTSIDE RECORDS SUMMARY | 2022-09-09 18:46 | XMS_ITS | Continuity of Care Document ---
:1970 Author Organization [facility] Address [address] [place] [id number]- Care Team Providers Name Role Phone Navin Falk MD, Jamey Primary Care Physician [phone] [facility] [id number] Date(s): 06/26/22 - 07/26/22 [facility] [address] [place] [id number]- Attending Physician: Khari Darnell Admitting Physician: Khari Darnell Referring Physician: Khari Darnell Referring Physician: Jamal ASENCIO , Patricia Allergies, Adverse Reactions, Alerts Substance Reaction Severity Status Other Food Allergy1 mouth swelling Active cooking spray 1EGGS Medications albuterol 0.083% inhalation solution 3 mL = 2.5 mg, Inhalation, Every 6 hours, # 120 each, 0 Refills, Maintenance, 12/14/16 12:57:27, Solution Start Date: 12/14/16 Status: Orderedescitalopram 10 mg oral tablet 1 tablet = 10 mg, By Mouth, Daily, # 30 tablet, 0 Refills, Maintenance, 05/22/18 13:31:16 EDT, Tablet Start Date: 05/22/18 Status: OrderedHydrochlorothiazide = 12.5 mg, By Mouth, Daily, 0 Refills, Maintenance, 12/14/16 12:56:26 Start Date: 12/14/16 Status: OrderedIbuprofen 800 mg, By Mouth, Every 8 hours, PRN, Refills 0, Maintenance, as needed for pain, 05/16/18 14:58:41 EDT Start Date: 05/16/18 Status: Orderedlevothyroxine 0.05 mg oral tablet 1 tablet = 50 mcg, By Mouth, Daily, # 30 tablet, 0 Refills, Maintenance, 12/14/16 12:57:55, Tablet Start Date: 12/14/16 Status: Orderedomeprazole 20 mg oral delayed release tablet 1 tablet = 20 mg, By Mouth, Daily, 0 Refills, Maintenance, 09/23/19 12:04:00 EST Start Date: 09/23/19 Status: OrderedSingulair 10 mg oral tablet 10 mg, 1, tablet, By Mouth, Daily, Refills 0, Maintenance, 12/14/16 12:57:15 Start Date: 12/14/16 Status: OrderedTylenol 8 HR Arthritis Pain = 1,300 mg, By Mouth, Every 8 hours, 0 Refills, Maintenance, 04/01/20 9:54:00 EDT Start Date: 04/01/20 Status: OrderedWixela Inhub 500 mcg-50 mcg inhalation powder 1 inhalation, Inhalation, 2 times a day, 0 Refills, Maintenance, 09/23/19 11:59:00 EST Start Date: 09/23/19 Status: Ordered Problem List Condition Confirmation Course Effective Dates Status Health I nformant Status Asthma Confirmed Active Back pain Confirmed Active HTN (hypertension) Confirmed Active Chronic lumbar Confirmed Active radiculopathy Morbid obesity with Confirmed Active BMI of 50.0-59.9, adult Myofascial pain Confirmed Active Severe obesity Confirmed Active Social History Social History Type Response Sex Male Patient Care team information Care Team PersonnelName: Jamey Haq MD Position: [facility] Outreach Member Role: PCP Address: Address: [address] [place] [id number]- Care Team Related PersonsName: PATSY HILLARY Address: [address] [place] [address]
[2022-09-09 18:53] LABS: COVID-19 Test Positive (Negative); IDNOW Serial# 9DB6401D
--- NOTE | 2022-09-09 20:25 | PC.NURSE ---
pt a&o x4 speaking in full sentances, respirations even, and unlabored. plan is to discharge with self care instructions. pt aware and agrees at this time
== END 2022-09-09 20:26 | disposition home or self-care (01) ==
PROVIDERS: Nurse Practitioner Family; Emergency Provider Internal Medicine; PCP Family Medicine
DX: U07.1 COVID-19 (principal); Z79.899 Other long term (current) drug therapy
CPT/HCPCS: 87635; 99282

== ENCOUNTER 2022-09-14 15:04 | Emergency (ER) | payer OTHER, SELFPAY ==
[2022-09-14 15:21] VITALS: BP 138/51; PULSE 90; RESP 20; TEMP 36.6; O2SAT 94; BMI 45.8
--- NOTE | 2022-09-14 15:22 | ED_ITS ---
HPI - General Adult General Chief complaint: Upper Respiratory Symptoms Stated complaint: COVID+/Chest pain/SOB Time Seen by Provider: 09/14/22 15:25 Source: patient Mode of arrival: ambulatory Limitations: no limitations History of Present Illness HPI narrative: Patient is a 51 year old assigned male at with a history of a recent COVID+ diagnosis presenting to the emergency department today with continued co ugh, fever, and sore throat. Patient states that he has had COVID-19 for over a week but last night he began to have a worsening cough and began coughing up yellow sputum. Patient denies any dizziness, lightheadedness, abdominal pain, nausea, vomiting, chills, blurry vision, double vision, loss of vision, chest pain, difficulty breathing, shortness of breath, back pain, night sweats, pain with urination, increased urinary frequency, increased urinary urgency, blood in his urine or stool, syncope or a near syncopal episode, recent trauma or falls, bowel incontinence, bladder incontinence, bowel retention, bladder retention, or any other complaints at this time. Onset (ago): day(s) (1) Severity: mild Severity scale (1-10): 3 Relieving factors: none Exacerbating factors: none Associated symptoms: cough Treatments prior to arrival: none Related Data Home Medications Medication Instructions Recorded Confirmed albuterol sulfate 90 mcg/actuation 2 puff inhalation Q6H PRN 03/26/22 05/30/22 aerosol inhaler (ProAir HFA) Respiratory Distress docusate sodium 100 mg capsule 100 mg PO BID 03/26/22 05/30/22 (Colace) epinephrine 0.3 mg/0.3 mL 0.3 mg IM Q4H PRN Anaphylaxis 03/26/22 05/30/22 injection, auto-injector (EpiPen) escitalopram oxalate 10 mg tablet 10 mg PO DAILY 03/26/22 05/30/22 (Lexapro) fluticasone 500 mcg-salmeterol 50 1 inh inhalation BID 03/26/22 05/30/22 mcg/dose blistr powdr for inhalation (Wixela Inhub) hydrochlorothiazide 25 mg tablet 25 mg PO DAILY 03/26/22 05/30/22 ibuprofen 800 mg tablet 800 mg PO Q6H PRN Pain 03/26/22 05/30/22 loratadine 10 mg tablet (Claritin) 10 mg PO DAILY 03/26/22 05/30/22 montelukast 10 mg tablet 10 mg PO DAILY 03/26/22 05/30/22 (Singulair) naloxone 4 mg/actuation nasal 1 spray intranasal Q2M PRN Opioid 03/26/22 05/30/22 spray (Narcan) Overdose omeprazole 20 mg capsule,delayed 20 mg PO DAILY@0630 03/26/22 05/30/22 release tramadol 50 mg tablet 50 mg PO BID PRN Pain, Moderate 03/26/22 05/30/22 Previous Rx's Medication Instructions Recorded polyethylene glycol 3350 17 17 g PO BID #119 grams 05/19/21 gram/dose oral powder (Miralax) acetaminophen 500 mg tablet 1,000 mg PO QID PRN fever or pain 02/27/22 (Tylenol Extra Strength) #14 tabs cholecalciferol (vitamin D3) 125 125 mcg PO DAILY #90 caps 05/02/22 mcg (5,000 unit) capsule oxycodone 5 mg tablet 5 mg PO Q6H PRN Pain, Moderate 05/15/22 (Pain Scale 4-6 #15 tabs oseltamivir 75 mg capsule (Tamiflu) 75 mg PO BID 5 days #10 caps 07/17/22 prednisone 20 mg tablet 20 mg PO BID #10 tabs 07/17/22 allopurinol 100 mg tablet 200 mg PO DAILY #60 tabs 08/08/22 doxycycline hyclate 100 mg tablet 100 mg PO BID 7 days #14 tabs 09/14/22 lidocaine HCl 2 % mucosal solution 1 appl mucous membrane BID PRN 09/14/22 (Lidocaine Viscous) pain #100 mL prednisone 20 mg tablet 20 mg PO DAILY 7 days #7 tabs 09/14/22 Allergies Allergy/AdvReac Type Severity Reaction Status Date / Time egg [EGGS] Allergy Unknown ITCHY Verified 06/29/22 14:31 THROAT,SWELLING LIPS JANELL cooking spray Allergy Unknown swelling Uncoded 04/26/22 13:25 in mouth/tongue Review of Systems Constitutional: Constitutional: Reports no additional constitutional complaints, Denies chills, Reports fever(s) and Denies night sweats Eyes: Eyes: Reports no additional eye complaints, Denies blurry vision, Denies change in vision, Denies diplopia, Denies eye discharge, Denies loss of vision and Denies eye pain ENT: Denies dizziness Cardiovascular: Cardiovascular: Reports no additional cardiovascular complaints, Denies chest pain, Denies lightheadedness, Denies Loss of Consciousn ess and Denies dyspnea Respiratory: Respiratory: Reports no additional respiratory complaints, Reports cough and Denies dyspnea Gastrointestinal: Gastrointestinal: Reports no additional gastrointestinal complaints, Denies abdominal pain, Denies melena, Denies hematochezia, Denies change in bowel habits and Denies change in stool character Genitourinary: Genitourinary: Reports no additional male genitourinary complaints, Denies hematuria, Denies oliguria, Denies difficulty urinating, Denies dysuria, Denies urinary frequency, Denies urinary hesitancy, Denies urinary incontinence and Denies urinary urgency Musculoskeletal: Musculoskeletal: Reports no additional musculoskeletal complaints, Denies numbness and Denies tingling Neurologic: Denies dizziness, Denies loss of vision, Denies numbness and Denies tingling Psychiatric: Psychiatric: Reports no additional psychiatric complaints Endocrine: Endocrine: Reports no additional endocrine complaints Hematologic/Lymphatic: Hematologic/Lymphatic: Reports no additional hematologic/lymphatic complaints Allergic/Immunologic: Allergic/Immunologic: Reports no additional allergic/immunologic complaints [facility] Past Medical History Attestation statement: The following information was validated with the patient. Source: old records reviewed and nursing notes reviewed Medical History Abdominal pain, LLQ Anxiety Asthma Gout Incisional hernia Incisional hernia Incisional pain Morbid obesity due to excess calories Obesity Obstructive sleep apnea Open wound anterior abdominal wall SBO (small bowel obstruction) SBO (small bowel obstruction) Surgical History H/O hernia repair Hx of carpal tunnel repair Status post Hattie's procedure Family History Family History Mother Arthritis Father Arthritis Maternal Grandfather History of prostate cancer Maternal Grandmother History of breast cancer Social History Social History Household Members: Significant Other, Family and Children Housing: Apartment Do you presently have visiting nurse or other home services: No Alcohol intake: former Year quit: 2019 Patient Tobacco Use Status: Former Tobacco user Quit Date: 20 years ago Second Hand Smoke Exposure: No Substance Use Type: Marijuana Advance Directives: No Advance Directives Information Provided: No service: No Current occupational status: disabled 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 Physical Exam ED Vital Signs: Vital Signs - 24 hr 09/14/22 15:21 Temperature 97.8 F Pulse Rate 90 Respiratory Rate 20 Blood Pressure 138/51 L Pulse Oximetry 94 Oxygen Delivery Method Room Air BMI result Body Mass Index 45.8 Const General: cooperative, no acute distress, alert and awake Nutritional Appearance: well nourished Orientation/consciousness: patient oriented x3 Limitations: no limitations HENMT Head: Yes normal to inspection and Yes atraumatic Ears: hearing grossly normal bilaterally and external ears normal General nose exam: Normal external nose present, no nasal discharge noted and no epistaxis Face and sinus: Yes normal facial exam, No abrasion and No laceration Mouth: Normal oral and palatal mucosa present, no drooling and no muffled voice Eyes General: appearance normal, both eyes and all related structures Periorbital: periorbital findings normal Eyelids: Yes eyelids normal Conjunctivae: conjunctivae normal Pupils: Equal, round and reactive pupils present EOM: EOMs intact bilaterally Neck Neck: Yes normal visual inspection, Yes full ROM and Yes no lymphadenopathy Chest Chest palpation & inspection: normal inspection of the chest Resp Effort & Inspection: normal respiratory effort and able to speak in complete sentences Auscultation: clear to auscultation bilaterally Cardio Rate: regular rate Rhythm: regular rhythm GI Inspection: Yes normal to inspection Palpation (GI): Soft to palpation, not firm, nontender and no guarding Neuro General: patient oriented x3 and moves all extremities Cranial nerves: Yes Equal, round and reactive pupils present Cognition (Neuro): normal cognition Motor exam (neuro): 5/5 motor strength present throughout Sensory Exam: Normal double simultaneous stimulation for sensation Coordination: [id number] test normal Extrem General: Yes normal to inspection, Yes full ROM and Yes capillary refill normal Psych Appearance: grossly normal Mental Status: mental status grossly normal Affect: normal affect Attitude: cooperative Thought process: Normal thought process present Thought content: Normal thought content present Insight: Good insight present (Psych) Medical Decision Making Medical Decision Making MDM Narrative: Patient is a 51 year old assigned male at with a history of a recent COVID-19 diagnosis presenting to the emergency department today with a worsening cough. Patient's physical exam was unremarkable. I explained my physical exam findings to the patient. I answered all questions asked by the patient. Given the patient's persistent symptoms, will cover for possible super imposed bacterial infection. I stressed the importance of the patient taking his medication as prescribed. I stressed the importance of the patient following up with his primary care provider. I stressed the importance of the patient returning to the emergency department immediately if his symptoms were to worsen or if he were to develop any dizziness, shortness of breath, difficulty breathing, chest pain, blurry vision, loss of vision, nausea, vomiting, abdominal pain, fever, chills, back pain, or any other complaints. Patient verbalized agreement and understanding with this treatment plan and discharge. Differential Diagnosis Differential Diagnoses: The differential diagnosis associated with the presentation includes URI, bronchitis Discharge Plan Discharge Clinical Impression: Cough Patient Disposition: Home, Self-Care Instructions: Acute Cough (ED) Additional Instructions: Follow up with your primary care provider. Return to the emergency department immediately if your symptoms worsen or if you develop any dizziness, shortness of breath, difficulty breathing, chest pain, blurry vision, loss of vision, nausea, vomiting, abdominal pain, fever, chills, back pain, or any other complaints. Prescriptions: New doxycycline hyclate 100 mg tablet 100 mg PO BID 7 Days Qty: 14 0RF prednisone 20 mg tablet 20 mg PO DAILY 7 Days Qty: 7 0RF lidocaine HCl [Lidocaine Viscous] 2 % solution 1 appl mucous membrane BID PRN (Reason: pain) Qty: 100 0RF No Action cholecalciferol (vitamin D3) 125 mcg (5,000 unit) capsule 125 mcg PO DAILY Qty: 90 1RF allopurinol 100 mg tablet 200 mg PO DAILY Qty: 60 1RF polyethylene glycol 3350 [Miralax] 17 gram/dose powder 17 g PO BID Qty: 119 0RF acetaminophen [Tylenol Extra Strength] 500 mg tablet 1,000 mg PO QID PRN (Reason: fever or pain) Qty: 14 0RF oxycodone 5 mg Tablet 5 mg PO Q6H PRN (Reason: Pain, Moderate (Pain Scale 4-6) Qty: 15 0RF Rx Instructions: Partial Fill upon patient request. oseltamivir [Tamiflu] 75 mg capsule 75 mg PO BID 5 Days Qty: 10 0RF prednisone 20 mg tablet 20 mg PO BID Qty: 10 0RF albuterol sulfate [ProAir HFA] 90 mcg/actuation HFA aerosol inhaler 2 puff inhalation Q6H PRN (Reason: Respiratory Distress) hydrochlorothiazide 25 mg tablet 25 mg PO DAILY docusate sodium [Colace] 100 mg capsule 100 mg PO BID loratadine [Claritin] 10 mg tablet 10 mg PO DAILY montelukast [Singulair] 10 mg tablet 10 mg PO DAILY escitalopram oxalate [Lexapro] 10 mg tablet 10 mg PO DAILY omeprazole 20 mg capsule,delayed release(DR/EC) 20 mg PO DAILY@0630 fluticasone propion-salmeterol [Wixela Inhub] 500-50 mcg/dose blister with device 1 inh inhalation BID epinephrine [EpiPen] 0.3 mg/0.3 mL auto-injector 0.3 mg IM Q4H PRN (Reason: Anaphylaxis) naloxone [Narcan] 4 mg/actuation spray,non-aerosol 1 spray intranasal Q2M PRN (Reason: Opioid Overdose) Rx Instructions: spray 1 dose into ONE nostril; alternate nostrils w each dose until help arri ves ibuprofen 800 mg tablet 800 mg PO Q6H PRN (Reason: Pain) Rx Instructions: administer with food tramadol 50 mg tablet 50 mg PO BID PRN (Reason: Pain, Moderate) Referrals: Patricia Berry MD [Primary Care Provider] - Stand Alone Forms: Work/School Release Interventions: ED Discharge Assessment Last Done: 09/14/22 15:28 Discharge Date/Time: 09/14/22 15:39 Print Language: Slovenian
== END 2022-09-14 15:39 | disposition home or self-care (01) ==
LOC: HO.ED 15:28
PROVIDERS: Emergency Provider Emergency Medicine; PCP Family Medicine
DX: U07.1 COVID-19 (principal); R05.9 Cough, unspecified
CPT/HCPCS: 99282; 99283

== ENCOUNTER 2022-09-27 15:11 | Emergency (ER) | payer OTHER, SELFPAY ==
--- NOTE | ~2022-09-27 | CT_ITS ---
EXAMINATION: CT ABDOMEN AND PELVIS WITHOUT CONTRAST CLINICAL INFORMATION: Abdominal pain, history of small bowel obstruction COMPARISON: CT abdomen pelvis 05/12/2022 TECHNIQUE: Multidetector volumetric imaging was performed from the superior aspect of the liver through the pubic symphysis. Sagittal and coronal reformatted images were obtained on the technologist's workstation. This CT examination was performed using dose optimization techniques as appropriate, variously including the following: *Automated exposure control *Adjustment of mA and/or kV according to patient size (this includes techniques or standardized protocols for targeted exams where dose is matched to indication/reason for exam; i.e. extremities or head) *Use of iterative reconstruction technique DLP: 1150 mGy-cm FINDINGS: LUNG BASES: Bibasilar atelectasis. ABDOMINAL AND PELVIC WALL: Midline fat containing umbilical hernia. Midline incisional hernia containing loops of small bowel and left lower quadrant spigelian hernia containing loops of small bowel. LIVER AND BILIARY TREE: Unremarkable. GALLBLADDER: Unremarkable. PANCREAS: Unremarkable. SPLEEN: Unremarkable. ADRENAL GLANDS: Unremarkable. KIDNEYS AND URETERS: Benign-appearing peripelvic left renal cyst and subcentimeter Bosniak 1 left renal cyst, no routine follow up imaging recommended. GASTROINTESTINAL TRACT: Large and small bowel are nondilated without evidence of bowel obstruction. Rectosigmoid surgical anastomosis. Colonic diverticulosis without evidence of diverticulitis. Normal appendix. VASCULAR: Unremarkable. LYMPH NODES/PERITONEUM: No lymphadenopathy. FREE FLUID: None. BLADDER: Unremarkable. PELVIC VISCERA: Unremarkable. OSSEOUS STRUCTURES: L5 pars defects. 1 anterolisthesis of L5 on S1 and the liver. Otherwise grade 1 retrolisthesis of L1 on L2-L4 on L5. Multilevel degenerative disc disease. CT/CT abdomen pelvis wo IV con IMPRESSION: Midline incisional hernia and left lower quadrant spigelian hernia containing loops of small bowel and small fat-containing umbilical hernia. No dilation of bowel to suggest bowel obstruction.
[2022-09-27 15:27] VITALS: BP 122/86; PULSE 84; RESP 18; TEMP 36.9; O2SAT 98; BMI 45.8
--- NOTE | 2022-09-27 15:27 | ED.ABDPAIN ---
HPI - Abdominal Pain General Chief Complaint: Abdominal Pain <CHRISSY Pedroza - Last Filed: 09/27/22 15:30> Stated Complaint: abd pain, hernia issues <CHRISSY Pedroza - Last Filed: 09/27/22 15:30> Time Seen by Provider: 09/27/22 20:41 <CHRISSY Pedroza - Last Filed: 09/27/22 15:30> Source: patient, RN notes reviewed, old records reviewed and park interpreter <Sidney Clarke - Last Filed: 09/27/22 21:07> Mode of arrival: ambulatory <Sidney Clarke - Last Filed: 09/27/22 21:07> Limitations: language barrier <Sidney Clarke - Last Filed: 09/27/22 21:07> History of Present Illness HPI narrative: 51-year-old male past medical history significant for morbid obesity, history of small-bowel obstruction, history of incarcerated hernia presents for evaluation of abdominal pain and constipation. patient reports that he has a history of frequent small bowel obstructions and 5 previous abdominal surgeries. He reports that sometimes he is treated with a nasogastric tube he reports for the last week or so he has had intermittent left-sided abdominal pains that radiate to the middle. Currently he is quite comfortable but does have a mild, 2/10 pain he denies any nausea, vomiting but endorses constipation. His last bowel movement was 2 weeks ago per his report he denies any black or bloody stool patient reports he takes milk of magnesia regularly at home for constipation he also takes fiber supplementation but admits he has not been drinking a lot of oral fluids he reports he is actually due to see a ophthalmic surgical assistant in [place] due to his history of structures and is a known ventral and left spigelian hernia <Sidney Clarke - Last Filed: 09/27/22 21:07> Related Data Home Medications: Home Medications Medication Instructions Recorded Confirmed albuterol sulfate 90 mcg/actuation 2 puff inhalation Q6H PRN 03/26/22 05/30/22 aerosol inhaler (ProAir HFA) Respiratory Distress docusate sodium 100 mg capsule 100 mg PO BID 03/26/22 05/30/22 (Colace) epinephrine 0.3 mg/0.3 mL 0.3 mg IM Q4H PRN Anaphylaxis 03/26/22 05/30/22 injection, auto-injector (EpiPen) escitalopram oxalate 10 mg tablet 10 mg PO DAILY 03/26/22 05/30/22 (Lexapro) fluticasone 500 mcg-salmeterol 50 1 inh inhalation BID 03/26/22 05/30/22 mcg/dose blistr powdr for inhalation (Wixela Inhub) hydrochlorothiazide 25 mg tablet 25 mg PO DAILY 03/26/22 05/30/22 ibuprofen 800 mg tablet 800 mg PO Q6H PRN Pain 03/26/22 05/30/22 loratadine 10 mg tablet (Claritin) 10 mg PO DAILY 03/26/22 05/30/22 montelukast 10 mg tablet 10 mg PO DAILY 03/26/22 05/30/22 (Singulair) naloxone 4 mg/actuation nasal 1 spray intranasal Q2M PRN Opioid 03/26/22 05/30/22 spray (Narcan) Overdose omeprazole 20 mg capsule,delayed 20 mg PO DAILY@0630 03/26/22 05/30/22 release tramadol 50 mg tablet 50 mg PO BID PRN Pain, Moderate 03/26/22 05/30/22 Previous Rx's Medication Instructions Recorded polyethylene glycol 3350 17 17 g PO BID #119 grams 05/19/21 gram/dose oral powder (Miralax) acetaminophen 500 mg tablet 1,000 mg PO QID PRN fever or pain 02/27/22 (Tylenol Extra Strength) #14 tabs cholecalciferol (vitamin D3) 125 125 mcg PO DAILY #90 caps 05/02/22 mcg (5,000 unit) capsule oxycodone 5 mg tablet 5 mg PO Q6H PRN Pain, Moderate 05/15/22 (Pain Scale 4-6 #15 tabs oseltamivir 75 mg capsule (Tamiflu) 75 mg PO BID 5 days #10 caps 07/17/22 prednisone 20 mg tablet 20 mg PO BID #10 tabs 07/17/22 doxycycline hyclate 100 mg tablet 100 mg PO BID 7 days #14 tabs 09/14/22 lidocaine HCl 2 % mucosal solution 1 appl mucous membrane BID PRN 09/14/22 (Lidocaine Viscous) pain #100 mL prednisone 20 mg tablet 20 mg PO DAILY 7 days #7 tabs 09/14/22 allopurinol 100 mg tablet 200 mg PO DAILY #60 tabs 09/18/22 <CHRISSY Pedroza - Last Filed: 09/27/22 15:30> Allergies/Adverse Reactions: Allergies Allergy/AdvReac Type Severity Reaction Status Date / Time egg [EGGS] Allergy Unknown ITCHY Verified 09/27/22 15:27 THROAT,SWELLING LIPS JANELL cooking spray Allergy Unknown swelling Uncoded 04/26/22 13:25 in mouth/tongue <CHRISSY Pedroza - Last Filed: 09/27/22 15:30> Review of Systems Constitutional: Reports as per HPI, Denies chills and Denies fatigue <Sidney Clarke - Last Filed: 09/27/22 21:07> Cardiovascular: Denies chest pain and Denies dyspnea <Sidney Clarke - Last Filed: 09/27/22 21:07> Respiratory: Denies cough and Denies dyspnea <Sidney Clarke - Last Filed: 09/27/22 21:07> Gastrointestinal: Reports abdominal pain, Denies melena, Denies hematochezia, Reports constipation and Denies vomiting <Sidney Clarke - Last Filed: 09/27/22 21:07> Genitourinary: Denies difficulty urinating and Denies dysuria <Sidney Clarke - Last Filed: 09/27/22 21:07> Endocrine: Denies fatigue <Sidney Clarke - Last Filed: 09/27/22 21:07> [facility] Past Medical History Medical History: Medical History Abdominal pain, LLQ Anxiety Asthma Gout Incisional hernia Incisional hernia Incisional pain Morbid obesity due to excess calories Obesity Obstructive sleep apnea Open wound anterior abdominal wall SBO (small bowel obstruction) SBO (small bowel obstruction) <CHRISSY Pedroza - Last Filed: 09/27/22 15:30> Surgical History: Surgical History H/O hernia repair Hx of carpal tunnel repair Status post Hattie's procedure <CHRISSY Pedroza - Last Filed: 09/27/22 15:30> Family History Family History: Family History Mother Arthritis Father Arthritis Maternal Grandfather History of prostate cancer Maternal Grandmother History of breast cancer <CHRISSY Pedroza - Last Filed: 09/27/22 15:30> Social History Social History: Social History Household Members: Significant Other, Family and Children Housing: Apartment Do you presently have visiting nurse or other home services: No Alcohol intake: former Year quit: 2019 Patient Tobacco Use Status: Former Tobacco user Quit Date: 20 years ago Second Hand Smoke Exposure: No Substance Use Type: Marijuana Advance Directives: No Advance Directives Information Provided: No service: No Current occupational status: disabled 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 <CHRISSY Pedroza - Last Filed: 09/27/22 15:30> Physical Exam ED Vital Signs: Vital Signs - 24 hr 09/27/22 15:27 Temperature 98.4 F Pulse Rate 84 Respiratory Rate 18 Blood Pressure 122/86 Pulse Oximetry 98 Oxygen Delivery Method Room Air BMI result Body Mass Index 45.8 <CHRISSY Pedroza - Last Filed: 09/27/22 15:30> Vital Signs - 24 hr 09/27/22 15:27 Temperature 98.4 F Pulse Rate 84 Respiratory Rate 18 Blood Pressure 122/86 Pulse Oximetry 98 Oxygen Delivery Method Room Air BMI result Body Mass Index 45.8 <Sidney Clarke - Last Filed: 09/27/22 21:07> Const General: healthy appearing, comfortable, no acute distress, alert and awake <Sidney Clarke - Last Filed: 09/27/22 21:07> Nutritional Appearance: well nourished <Sidney Clarke - Last Filed: 09/27/22 21:07> Orientation/consciousness: patient oriented x3 <Sidney Clarke - Last Filed: 09/27/22 21:07> Eyes Eyelids: Yes eyelids normal <Sidney Clarke - Last Filed: 09/27/22 21:07> Conjunctivae: conjunctivae normal <Sidney Clarke - Last Filed: 09/27/22 21:07> Sclerae: sclerae normal <Sidney Clarke - Last Filed: 09/27/22 21:07> Corneas: corneas normal <Sidney LambertYoakum - Last Filed: 09/27/22 21:07> Pupils: Equal, round and reactive pupils present <Sidney Husainy - Last Filed: 09/27/22 21:07> EOM: EOMs intact bilaterally <Sidney OYoakum - Last Filed: 09/27/22 21:07> Resp Effort & Inspection: normal respiratory effort, able to speak in complete sentences, no audible wheezes and not labored <Sidney OYoakum - Last Filed: 09/27/22 21:07> GI Other: in a supine position, I am unable to palpate the patient's ventral or left spigelian hernia. He has a surgical scar in the left mid to lower quadrant from a previous colostomy where his spigelian hernia intermittently present. <Sidney Husainy - Last Filed: 09/27/22 21:07> Inspection: No distended and Yes scar <Sidney LambertYoakum - Last Filed: 09/27/22 21:07> Palpation (GI): Soft to palpation, nontender, no guarding and no masses <Sidney LambertYoakum - Last Filed: 09/27/22 21:07> Auscultation: normoactive bowel sounds <Sidney LambertYoakum - Last Filed: 09/27/22 21:07> Skin General skin exam: no rashes or lesions noted and elasticity normal <Sidney OYoakum - Last Filed: 09/27/22 21:07> Lesions: no lesions <Sidney OYoakum - Last Filed: 09/27/22 21:07> Rashes: no rashes <Sidney OYoakum - Last Filed: 09/27/22 21:07> Neuro General: patient oriented x3 <Sidney LambertYoakum - Last Filed: 09/27/22 21:07> Cranial nerves: Yes Equal, round and reactive pupils present <Sidney Husainy - Last Filed: 09/27/22 21:07> Extrem General: Yes full ROM <Sidney Husainy - Last Filed: 09/27/22 21:07> Course Course Course Narrative: RME- 15:30PM - 51yoM with a past medical history of asthma, arthritis, umbilical hernia and small-bowel obstruction who is presenting to the ED with complaints of periumbilical/left-sided abdominal pain since last Saturday worse today. Reports associated constipation and bloating. Last BM was on Saturday last week. Reports when he had a small bowel obstruction last time he was able to vomit and did not end up having surgery. Denies fevers, nausea or vomiting. Plan: Will obtain labs, COVID/RSV/flu swab and UA <CHRISSY Pedroza - Last Filed: 09/27/22 15:30> Medical Decision Making Medical Decision Making MDM Narrative: this is a well-appearing, 51-year-old male presenting for evaluation of constipation over the last week or so. His vital signs are stable, no evidence of infection. His labs are indicative of a white count of 14.4k, Otherwise unremarkable. His electrolytes are within normal limits. Patient has 2 known hernias both of which are reducible at this time. His CT scan which shows no evidence of obstruction. I discussed all this with the patient using the historical interpreter. He will increase water intake and he reports that he has MiraLax at home that he will add to his current bowel regimen and follow up with his surgeons as planned. He is able to tolerate p.o.. All questions were answered the patient is comfortable with discharge at this time <Sidney Clarke - Last Filed: 09/27/22 21:07> Differential Diagnosis Differential Diagnoses: The differential diagnosis associated with the presentation includes <Sidney Clarke - Last Filed: 09/27/22 21:07> Constipation Small-bowel obstruction Ventral hernia spigelian hernia Strangulated hernia Incarcerated hernia <Sidney Clarke - Last Filed: 09/27/22 21:07> Lab Data Result Diagrams: 09/27/22 15:41 09/27/22 15:41 <CHRISSY Pedroza - Last Filed: 09/27/22 15:30> Labs: Lab Results 09/27/22 09/27/22 09/27/22 Range/Units 15:41 15:41 15:41 WBC 14.2 H (4.8-10.8) X10*3/uL RBC 4.96 (4.60-5.80) X10*6/uL Hgb 13.9 L (14.0-18.0) g/dl Hct 42.7 (42.0-52.0) % MCV 86.1 (80.0-98.0) fL MCH 28.0 (27.0-33.0) pg MCHC 32.6 (31.0-36.0) g/dl RDW 14.2 (11.0-16.0) % Plt Count 325 (160-400) X10*3/uL MPV 8.7 L (9.4-12.4) fL Immature Gran % (Auto) 0.9 H (0.0-0.4) % Neut % (Auto) 65.7 (45-73) % Lymph % (Auto) 24.2 (20-40) % Victoria % (Auto) 8.2 (2-11) % Eos % (Auto) 0.8 (0-4) % Baso % (Auto) 0.2 (0-2) % Lymph # (Auto) 3.5 (1.2-4.9) X10*3/uL Victoria # (Auto) 1.2 (0.1-1.2) X10*3/uL Eos # (Auto) 0.1 (0.0-0.4) X10*3/uL Baso # (Auto) 0.0 (0.0-0.2) X10*3/uL Abs Immat Gran (auto) 0.13 H (0.00-0.03) X10*3/uL Absolute Neuts (auto) 9.3 H (2.0-8.3) x10*3/uL Absolute Nucleated RBC 0.000 (0.0-0.012) X10*3/uL Nucleated RBC % (auto) 0.0 (0.0-0.2) /100WBC ESR 55 H (0-15) MM/HR PT 12.2 (10.0-13.1) SEC INR 1.1 (0.9-1.1) Sodium (135-145) mmol/L Potassium (3.3-5.1) mmol/L Chloride (96-108) mmol/L Carbon Dioxide (22-29) mmol/L Anion Gap (12-20) BUN (9-16) mg/dL Creatinine (0.5-1.4) mg/dL Estim Creat Clear Calc Estimated GFR Random Glucose (60-115) mg/dL Calcium (8.4-10.2) mg/dL Magnesium (1.6-2.6) mg/dL Total Bilirubin (0.0-1.0) mg/dL AST (5-37) U/L ALT (0-40) U/L Alkaline Phosphatase (39-117) U/L C-Reactive Protein (< or = 0.50) mg/dL Total Protein (6.5-8.0) g/dL Albumin (3.5-5.0) g/dL Influenza Type A (PCR) (Negative) Influenza Type B (PCR) (Negative) RSV RNA Qual (PCR) (Negative) SARS-CoV-2 RNA (RT-PCR) (Negative) 09/27/22 09/27/22 Range/Units 15:41 15:41 WBC (4.8-10.8) X10*3/uL RBC (4.60-5.80) X10*6/uL Hgb (14.0-18.0) g/dl Hct (42.0-52.0) % MCV (80.0-98.0) fL MCH (27.0-33.0) pg MCHC (31.0-36.0) g/dl RDW (11.0-16.0) % Plt Count (160-400) X10*3/uL MPV (9.4-12.4) fL Immature Gran % (Auto) (0.0-0.4) % Neut % (Auto) (45-73) % Lymph % (Auto) (20-40) % Victoria % (Auto) (2-11) % Eos % (Auto) (0-4) % Baso % (Auto) (0-2) % Lymph # (Auto) (1.2-4.9) X10*3/uL Victoria # (Auto) (0.1-1.2) X10*3/uL Eos # (Auto) (0.0-0.4) X10*3/uL Baso # (Auto) (0.0-0.2) X10*3/uL Abs Immat Gran (auto) (0.00-0.03) X10*3/uL Absolute Neuts (auto) (2.0-8.3) x10*3/uL Absolute Nucleated RBC (0.0-0.012) X10*3/uL Nucleated RBC % (auto) (0.0-0.2) /100WBC ESR (0-15) MM/HR PT (10.0-13.1) SEC INR (0.9-1.1) Sodium 141 (135-145) mmol/L Potassium 3.7 (3.3-5.1) mmol/L Chloride 104 (96-108) mmol/L Carbon Dioxide 27 (22-29) mmol/L Anion Gap 14 (12-20) BUN 13 (9-16) mg/dL Creatinine 0.85 (0.5-1.4) mg/dL Estim Creat Clear Calc 155.9 Estimated GFR > 60 Random Glucose 88 (60-115) mg/dL Calcium 9.2 (8.4-10.2) mg/dL Magnesium 1.9 (1.6-2.6) mg/dL Total Bilirubin 0.3 (0.0-1.0) mg/dL AST 18 (5-37) U/L ALT 21 (0-40) U/L Alkaline Phosphatase 77 (39-117) U/L C-Reactive Protein 1.32 H (< or = 0.50) mg/dL Total Protein 7.0 (6.5-8.0) g/dL Albumin 4.0 (3.5-5.0) g/dL Influenza Type A (PCR) NEGATIVE (Negative) Influenza Type B (PCR) NEGATIVE (Negative) RSV RNA Qual (PCR) NEGATIVE (Negative) SARS-CoV-2 RNA (RT-PCR) NEGATIVE (Negative) <CHRISSY Pedroza - Last Filed: 09/27/22 15:30> Lab Results 09/27/22 09/27/22 09/27/22 Range/Units 15:41 15:41 15:41 WBC 14.2 H (4.8-10.8) X10*3/uL RBC 4.96 (4.60-5.80) X10*6/uL Hgb 13.9 L (14.0-18.0) g/dl Hct 42.7 (42.0-52.0) % MCV 86.1 (80.0-98.0) fL MCH 28.0 (27.0-33.0) pg MCHC 32.6 (31.0-36.0) g/dl RDW 14.2 (11.0-16.0) % Plt Count 325 (160-400) X10*3/uL MPV 8.7 L (9.4-12.4) fL Immature Gran % (Auto) 0.9 H (0.0-0.4) % Neut % (Auto) 65.7 (45-73) % Lymph % (Auto) 24.2 (20-40) % Victoria % (Auto) 8.2 (2-11) % Eos % (Auto) 0.8 (0-4) % Baso % (Auto) 0.2 (0-2) % Lymph # (Auto) 3.5 (1.2-4.9) X10*3/uL Victoria # (Auto) 1.2 (0.1-1.2) X10*3/uL Eos # (Auto) 0.1 (0.0-0.4) X10*3/uL Baso # (Auto) 0.0 (0.0-0.2) X10*3/uL Abs Immat Gran (auto) 0.13 H (0.00-0.03) X10*3/uL Absolute Neuts (auto) 9.3 H (2.0-8.3) x10*3/uL Absolute Nucleated RBC 0.000 (0.0-0.012) X10*3/uL Nucleated RBC % (auto) 0.0 (0.0-0.2) /100WBC ESR 55 H (0-15) MM/HR PT 12.2 (10.0-13.1) SEC INR 1.1 (0.9-1.1) Sodium (135-145) mmol/L Potassium (3.3-5.1) mmol/L Chloride (96-108) mmol/L Carbon Dioxide (22-29) mmol/L Anion Gap (12-20) BUN (9-16) mg/dL Creatinine (0.5-1.4) mg/dL Estim Creat Clear Calc Estimated GFR Random Glucose (60-115) mg/dL Calcium (8.4-10.2) mg/dL Magnesium (1.6-2.6) mg/dL Total Bilirubin (0.0-1.0) mg/dL AST (5-37) U/L ALT (0-40) U/L Alkaline Phosphatase (39-117) U/L C-Reactive Protein (< or = 0.50) mg/dL Total Protein (6.5-8.0) g/dL Albumin (3.5-5.0) g/dL Influenza Type A (PCR) (Negative) Influenza Type B (PCR) (Negative) RSV RNA Qual (PCR) (Negative) SARS-CoV-2 RNA (RT-PCR) (Negative) 09/27/22 09/27/22 Range/Units 15:41 15:41 WBC (4.8-10.8) X10*3/uL RBC (4.60-5.80) X10*6/uL Hgb (14.0-18.0) g/dl Hct (42.0-52.0) % MCV (80.0-98.0) fL MCH (27.0-33.0) pg MCHC (31.0-36.0) g/dl RDW (11.0-16.0) % Plt Count (160-400) X10*3/uL MPV (9.4-12.4) fL Immature Gran % (Auto) (0.0-0.4) % Neut % (Auto) (45-73) % Lymph % (Auto) (20-40) % Victoria % (Auto) (2-11) % Eos % (Auto) (0-4) % Baso % (Auto) (0-2) % Lymph # (Auto) (1.2-4.9) X10*3/uL Victoria # (Auto) (0.1-1.2) X10*3/uL Eos # (Auto) (0.0-0.4) X10*3/uL Baso # (Auto) (0.0-0.2) X10*3/uL Abs Immat Gran (auto) (0.00-0.03) X10*3/uL Absolute Neuts (auto) (2.0-8.3) x10*3/uL Absolute Nucleated RBC (0.0-0.012) X10*3/uL Nucleated RBC % (auto) (0.0-0.2) /100WBC ESR (0-15) MM/HR PT (10.0-13.1) SEC INR (0.9-1.1) Sodium 141 (135-145) mmol/L Potassium 3.7 (3.3-5.1) mmol/L Chloride 104 (96-108) mmol/L Carbon Dioxide 27 (22-29) mmol/L Anion Gap 14 (12-20) BUN 13 (9-16) mg/dL Creatinine 0.85 (0.5-1.4) mg/dL Estim Creat Clear Calc 155.9 Estimated GFR > 60 Random Glucose 88 (60-115) mg/dL Calcium 9.2 (8.4-10.2) mg/dL Magnesium 1.9 (1.6-2.6) mg/dL Total Bilirubin 0.3 (0.0-1.0) mg/dL AST 18 (5-37) U/L ALT 21 (0-40) U/L Alkaline Phosphatase 77 (39-117) U/L C-Reactive Protein 1.32 H (< or = 0.50) mg/dL Total Protein 7.0 (6.5-8.0) g/dL Albumin 4.0 (3.5-5.0) g/dL Influenza Type A (PCR) NEGATIVE (Negative) Influenza Type B (PCR) NEGATIVE (Negative) RSV RNA Qual (PCR) NEGATIVE (Negative) SARS-CoV-2 RNA (RT-PCR) NEGATIVE (Negative) <Sidney Clarke - Last Filed: 09/27/22 21:07> Discharge Plan Discharge Clinical Impression: Constipation <CHRISSY Pedroza - Last Filed: 09/27/22 15:30> Patient Disposition: Home, Self-Care <CHRISSY Pedroza - Last Filed: 09/27/22 15:30> Instructions: Constipation (ED) <CHRISSY Pedroza - Last Filed: 09/27/22 15:30> Additional Instructions: your workup in the emergency department was reassuring today. Her CT scan did not show any evidence of obstruction. As discussed, increase fluid intake, fiber intake in your diet. He should add MiraLax every night for least the next 2 weeks to a bowel regimen of milk of magnesia. Follow-up with your general surgeon as planned. Return for any new or worsening symptoms, especially if you are unable to pass any gas or stool at all or severe abdominal pain <CHRISSY Pedroza - Last Filed: 09/27/22 15:30> Prescriptions: No Action cholecalciferol (vitamin D3) 125 mcg (5,000 unit) capsule 125 mcg PO DAILY Qty: 90 1RF allopurinol 100 mg tablet 200 mg PO DAILY Qty: 60 1RF polyethylene glycol 3350 [Miralax] 17 gram/dose powder 17 g PO BID Qty: 119 0RF acetaminophen [Tylenol Extra Strength] 500 mg tablet 1,000 mg PO QID PRN (Reason: fever or pain) Qty: 14 0RF oxycodone 5 mg Tablet 5 mg PO Q6H PRN (Reason: Pain, Moderate (Pain Scale 4-6) Qty: 15 0RF Rx Instructions: Partial Fill upon patient request. oseltamivir [Tamiflu] 75 mg capsule 75 mg PO BID 5 Days Qty: 10 0RF prednisone 20 mg tablet 20 mg PO BID Qty: 10 0RF doxycycline hyclate 100 mg tablet 100 mg PO BID 7 Days Qty: 14 0RF prednisone 20 mg tablet 20 mg PO DAILY 7 Days Qty: 7 0RF lidocaine HCl [Lidocaine Viscous] 2 % solution 1 appl mucous membrane BID PRN (Reason: pain) Qty: 100 0RF albuterol sulfate [ProAir HFA] 90 mcg/actuation HFA aerosol inhaler 2 puff inhalation Q6H PRN (Reason: Respiratory Distress) hydrochlorothiazide 25 mg tablet 25 mg PO DAILY docusate sodium [Colace] 100 mg capsule 100 mg PO BID loratadine [Claritin] 10 mg tablet 10 mg PO DAILY montelukast [Singulair] 10 mg tablet 10 mg PO DAILY escitalopram oxalate [Lexapro] 10 mg tablet 10 mg PO DAILY omeprazole 20 mg capsule,delayed release(DR/EC) 20 mg PO DAILY@0630 fluticasone propion-salmeterol [Wixela Inhub] 500-50 mcg/dose blister with device 1 inh inhalation BID epinephrine [EpiPen] 0.3 mg/0.3 mL auto-injector 0.3 mg IM Q4H PRN (Reason: Anaphylaxis) naloxone [Narcan] 4 mg/actuation spray,non-aerosol 1 spray intranasal Q2M PRN (Reason: Opioid Overdose) Rx Instructions: spray 1 dose into ONE nostril; alternate nostrils w each dose until help arrives ibuprofen 800 mg tablet 800 mg PO Q6H PRN (Reason: Pain) Rx Instructions: administer with food tramadol 50 mg tablet 50 mg PO BID PRN (Reason: Pain, Moderate) <CHRISSY Pedroza - Last Filed: 09/27/22 15:30>
[2022-09-27 15:45] LABS: MANUAL DIFF FLAG NO
[2022-09-27 15:50] LABS: Basophils Percent Auto 0.2 % (0-2); Eosinophils Absolute Auto 0.1 X10*3/uL (0.0-0.4); Eosinophils Percent Auto 0.8 % (0-4); Hematocrit 42.7 % (42.0-52.0); Hemoglobin 13.9 g/dl (14.0-18.0); Imm Gran Abs Auto 0.13 X10*3/uL (0.00-0.03); Imm Gran Pct Auto 0.9 % (0.0-0.4); Lymphocytes Absolute Auto 3.5 X10*3/uL (1.2-4.9); Lymphocytes Percent Auto 24.2 % (20-40); Mean Corpuscular HGB Conc 32.6 g/dl (31.0-36.0); Mean Corpuscular Volume 86.1 fL (80.0-98.0); Mean Platelet Volume 8.7 fL (9.4-12.4); Monocytes Absolute Auto 1.2 X10*3/uL (0.1-1.2); Monocytes Percent Auto 8.2 % (2-11); Neutrophils Absolute Auto 9.3 x10*3/uL (2.0-8.3); Neutrophils Percent Auto 65.7 % (45-73); Platelet Count 325 X10*3/uL (160-400); Red Blood Count 4.96 X10*6/uL (4.60-5.80); Red Cell Distribution Width 14.2 % (11.0-16.0); White Blood Count 14.2 X10*3/uL (4.8-10.8)
[2022-09-27 15:58] LABS: INTERNATIONAL NORM RATIO 1.1 (0.9-1.1); Prothrombin Time 12.2 SEC (10.0-13.1)
[2022-09-27 16:03] LABS: Alanine Aminotransferase 21 U/L (0-40); Alkaline Phosphatase 77 U/L (39-117); Anion Gap 14 (12-20); Aspartate Amino Transferase 18 U/L (5-37); Bilirubin Total 0.3 mg/dL (0.0-1.0); Blood Urea Nitrogen 13 mg/dL (9-16); C Reactive Protein 1.32 mg/dL (< or = 0.50); Calcium 9.2 mg/dL (8.4-10.2); Carbon Dioxide 27 mmol/L (22-29); Chloride 104 mmol/L (96-108); Creatinine Clr Calc Pharmacy 155.9; Estimated Glomerular Filt Rate > 60; Glucose Random 88 mg/dL (60-115); Magnesium 1.9 mg/dL (1.6-2.6); Potassium 3.7 mmol/L (3.3-5.1); Sodium 141 mmol/L (135-145)
[2022-09-27 16:30] LABS: Erythrocyte Sedimentation Rate 55 MM/HR (0-15)
[2022-09-27 16:40] LABS: Influenza A PCR NEGATIVE (Negative); Influenza B PCR NEGATIVE (Negative); Resp Syncy Virus RNA Qual PCR NEGATIVE (Negative); SARS COV2 PCR INHOUSE NEGATIVE (Negative)
[2022-09-27 21:33] VITALS: BP 151/93; PULSE 72; RESP 20; TEMP 37.1; O2SAT 95
== END 2022-09-27 21:34 | disposition home or self-care (01) ==
PROVIDERS: Physician Assistant Medical; Emergency Provider Emergency Medicine; PCP Family Medicine
DX: K59.00 Constipation, unspecified (principal); R10.13 Epigastric pain; Z20.822 Contact with and (suspected) exposure to COVID-19; Z20.828 Contact with and (suspected) exposure to other viral communicable diseases; Z79.899 Other long term (current) drug therapy
CPT/HCPCS: 0241U; 74176; 80053; 83735; 85025; 85610; 85652; 86140; 99282; 99284

== ENCOUNTER 2023-02-04 13:24 | Outpatient (REF) | payer OTHER, SELFPAY ==
--- NOTE | ~2023-02-04 | XR_ITS ---
EXAMINATION: XR CHEST CLINICAL INFORMATION: Asthma COMPARISON: 07/29/2022 TECHNIQUE: 2 views of the chest were obtained. FINDINGS: There is no gross pneumothorax. Heart size is normal. No pleural effusion. No focal consolidation to suggest pneumonia. Degenerative changes in the thoracic spine. XR/XR chest 2V IMPRESSION: No evidence of pneumonia.
[2023-02-04 14:51] LABS: MANUAL DIFF FLAG NO
[2023-02-04 15:37] LABS: Basophils Percent Auto 0.3 % (0-2); Eosinophils Absolute Auto 0.4 X10*3/uL (0.0-0.4); Eosinophils Percent Auto 3.6 % (0-4); Hematocrit 41.2 % (42.0-52.0); Hemoglobin 13.3 g/dl (14.0-18.0); Imm Gran Abs Auto 0.14 X10*3/uL (0.00-0.03); Imm Gran Pct Auto 1.4 % (0.0-0.4); Lymphocytes Absolute Auto 2.9 X10*3/uL (1.2-4.9); Lymphocytes Percent Auto 28.1 % (20-40); Mean Corpuscular HGB Conc 32.3 g/dl (31.0-36.0); Mean Corpuscular Hemoglobin 28.3 pg (27.0-33.0); Mean Corpuscular Volume 87.7 fL (80.0-98.0); Mean Platelet Volume 8.8 fL (9.4-12.4); Monocytes Percent Auto 9.8 % (2-11); Neutrophils Absolute Auto 5.8 x10*3/uL (2.0-8.3); Neutrophils Percent Auto 56.8 % (45-73); Platelet Count 282 X10*3/uL (160-400); Red Cell Distribution Width 14.5 % (11.0-16.0); White Blood Count 10.2 X10*3/uL (4.8-10.8)
[2023-02-04 16:28] LABS: Erythrocyte Sedimentation Rate 60 MM/HR (0-15)
[2023-02-06 15:24] LABS: Immunoglobulin G Subclass 1 805 mg/dL (382-929); Immunoglobulin G Subclass 2 457 mg/dL (241-700); Immunoglobulin G Subclass 3 63 mg/dL (22-178); Immunoglobulin G Subclass 4 104.7 mg/dL (4-86); Immunoglobulin G Total 1382 mg/dL (600-1640)
== END 2023-02-04 13:25 | disposition home or self-care (01) ==
LOC: HO.LAB 13:24
PROVIDERS: PCP Family Medicine; Visit Provider Hospitalist
DX: J45.51 Severe persistent asthma with (acute) exacerbation (principal); G47.33 Obstructive sleep apnea (adult) (pediatric); U09.9 Post COVID-19 condition, unspecified
CPT/HCPCS: 36415; 71046; 82784; 82785; 85025; 85652; 86003; 94640; 99202

== ENCOUNTER 2023-02-20 13:42 | Outpatient (AMB) | payer OTHER, SELFPAY ==
--- NOTE | 2023-02-20 14:41 | A.OFFVIS_ITS ---
Intake Intake Visit Reasons: Hypogonadism/Erectile dysfunction Intake Note: Patient is present for hypogonadism/erectile dysfunction Urology Medications: none Blood Thinner: none Marketing Content Specialist Required: No Accompanied by: Self / Same As Patient Allergies egg [EGGS] Allergy (Unknown, Verified 03/21/23 14:47) ITCHY THROAT,SWELLING LIPS JANELL cooking spray Allergy (Unknown, Uncoded 03/21/23 14:47) swelling in mouth/tongue HPI HPI Comments History of Present Illness Details Brady is a pleasant male. He is a patient of . 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 SBO (small bowel obstruction) SBO (small bowel obstruction) Surgical History H/O hernia repair Hx of carpal tunnel repair Status post Hattie's procedure Family History Mother Arthritis Father Arthritis Maternal Grandfather History of prostate cancer Maternal Grandmother History of breast cancer Social History Household Members: Significant Other, Family and Children Housing: Apartment Do you presently have visiting nurse or other home services: No Alcohol intake: former Year quit: 2019 Patient Tobacco Use Status: Former Tobacco user Quit Date: 20 years ago Second Hand Smoke Exposure: No Substance Use Type: Marijuana service: No Current occupational status: disabled 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 Review of Systems Const Denies chills and Denies fever(s) Card Reports no additional complaints and Denies syncope Resp Denies cough GI Denies abdominal pain and Denies heartburn Reports as per HPI and Denies change in libido Neuro Denies syncope Psych Denies change in libido Endo Denies change in libido Physical Exam Const General: cooperative, healthy appearing, comfortable and no acute distress Orientation/consciousness: patient oriented x3 HEENT Face and sinus: Yes normal facial exam Mouth: moist mucous membranes Neck Neck: Yes normal visual inspection, Yes full ROM and Yes trachea midline Chest Chest palpation & inspection: normal inspection of the chest Resp Effort & Inspection: normal respiratory effort, able to speak in complete sente nces and no respiratory distress GI Inspection: Yes normal to inspection Back/Spine/Pelvis Cervical Spine: normal cervical lordosis Thoracic/Lumbar Spine: thoracic and lumbar spine normal to inspection Skin General skin exam: no rashes or lesions noted Neuro General: patient oriented x3, gait normal, tone normal and moves all extremities Extrem General: Yes normal to inspection and Yes capillary refill normal Assessment & Plan Assessment & Plan (1) Low libido: Code(s): R68.82 - Decreased libido Plan Repeat lab work Orders: Orders LDL Cholesterol Direct 02/26/23.82 - Decreased libido Lutenizing Hormone 02/26/238.82 - Decreased libido Prolactin 02/26/23.82 - Decreased libido Testosterone, Free/Total 2 Weeks .82 - Decreased libido Testosterone, Free/Total 02/26/238.82 - Decreased libido Sex Hormone Binding Globulin 02/26/23.82 - Decreased libido Lipid Panel 02/26/23.82 - Decreased libido Follicle Stimulating Hormone 02/26/238.82 - Decreased libido Medications: New tadalafil 5 mg PO DAILY 90 tabs 1RF sexual activity 90 days .82 - Decreased libido, N52.01 - Erectile dysfunction due to arterial insufficiency Patient Instructions: Imaging studies, laboratory and physical exam results were discussed and reviewed in detail. No major barriers to patient understanding were identified. An opportunity to ask questions regarding the treatment plan was provided. All questions were answered. The patient expressed understanding and agreement with the above treatment plan. The patient is aware they should contact our office by phone for worsening of their current condition or the appearance of new urologic symptoms. Compliance is encouraged with any medications and followup testing that is ordered. It is a privilege to participate in the urologic care of your patient. If you have any questions or concerns regarding treatment for the above conditions, or other urologic issues, please do not hesitate to contact me. The office telephone contact is [phone]. This note is constructed using voice recognition software. While every effort has been made to ensure accuracy flattening machine operator errors may have been included. Yours sincerely, Dr Pasquale Shannon MD, [facility] - Urology Providers of Expert, Compassionate Care for the Genitourinary System Coding Level of Care Code Est Pt Level 3 (24359) Diagnoses Low libido R68.82
== END 2023-02-20 15:19 | disposition home or self-care (01) ==
PROVIDERS: Visit Provider Urology
DX: R68.82 Decreased libido (principal)
CPT/HCPCS: 99213

== ENCOUNTER → 2023-02-20 13:42 | Outpatient (BNVA) | payer OTHER, SELFPAY | PROVIDERS: Visit Provider Urology | DX: R68.82 Decreased libido (principal); E29.0 Testicular hyperfunction; N52.1 Erectile dysfunction due to diseases classified elsewhere | CPT/HCPCS: 99212 ==

== ENCOUNTER 2023-02-26 07:49 | Outpatient (REF) | payer OTHER, SELFPAY ==
[2023-02-26 09:14] LABS: Cholesterol 232 mg/dL; HDL Cholesterol 60 mg/dL; LDL Cholesterol Calculated 150 mg/dl; Triglycerides 111 mg/dL
[2023-02-28 08:08] LABS: LDL Cholesterol Direct 149 mg/dL (<100)
[2023-02-28 08:18] LABS: Follicle Stimulating Hormone 16.1 mIU/mL (1.6-8.0); Lutenizing Hormone 7.7 mIU/mL (1.5-9.3); Prolactin 11.1 ng/mL (2.0-18.0); Sex Hormone Binding Globulin 29 nmol/L (10-50)
[2023-03-06 17:18] LABS: Testosterone, Free 32.1 pg/mL (35.0-155.0); Testosterone, Total 251 ng/dL (250-1100)
== END 2023-02-26 07:50 | disposition home or self-care (01) ==
LOC: HO.LAB 07:49
PROVIDERS: PCP Family Medicine; Visit Provider Urology
DX: R68.82 Decreased libido (principal)
CPT/HCPCS: 36415; 80061; 83001; 83002; 83721; 84146; 84270; 84402; 84403

== ENCOUNTER 2023-03-12 15:18 | Outpatient (REF) | payer OTHER, SELFPAY ==
[2023-03-12 16:55] LABS: Alanine Aminotransferase 24 U/L (0-40); Albumin Level 4.1 g/dL (3.5-5.0); Alkaline Phosphatase 94 U/L (39-117); Anion Gap 14 (12-20); Aspartate Amino Transferase 25 U/L (5-37); Bilirubin Total 0.3 mg/dL (0.0-1.0); Blood Urea Nitrogen 14 mg/dL (9-16); Calcium 9.8 mg/dL (8.4-10.2); Carbon Dioxide 24 mmol/L (22-29); Chloride 108 mmol/L (96-108); Estimated Glomerular Filt Rate > 60; Glucose Random 110 mg/dL (60-115); Potassium 4.3 mmol/L (3.3-5.1); Sodium 142 mmol/L (135-145); Total Protein 7.7 g/dL (6.5-8.0)
[2023-03-12 17:13] LABS: TSH reflex Free T4 2.61 uIU/mL (0.32-4.0)
== END 2023-03-12 15:19 | disposition home or self-care (01) ==
LOC: HO.HHCL 15:18
PROVIDERS: Visit Provider Family Medicine
DX: I10 Essential (primary) hypertension (principal); R25.2 Cramp and spasm; E03.9 Hypothyroidism, unspecified
CPT/HCPCS: 36415; 80053; 83735; 84443

== ENCOUNTER 2023-03-19 14:35 | Outpatient (AMB) | payer OTHER, SELFPAY ==
--- NOTE | 2023-03-19 14:54 | A.OFFVIS_ITS ---
Intake Intake Visit Reasons: 4w/labs(set) Intake Note: Patient is present for Follow Up Testosterone Urology Med: Tadalafil Antibiotic Allergy: None Blood Thinner: None [facility] Patient states that few weeks ago there was some issues getting his medication states he was not able to get it Allergies egg [EGGS] Allergy (Unknown, Verified 03/19/23 14:55) ITCHY THROAT,SWELLING LIPS JANELL cooking spray Allergy (Unknown, Uncoded 03/19/23 14:55) swelling in mouth/tongue HPI HPI Comments History of Present Illness Details Brady is a pleasant male. He is a patient of . He is seen for the following urologic conditions - hypogonadism Here for discussion of laboratory results Confirm borderline hypogonadism Compensated stimulatory hormones Recommend trial tadalafil 10 mg for 2 months Decreased libido/hypogonadism Progressive Labs - 03/03 T250 FT 32, FSH 16, LH 7.7 Associated conditions include obesity - dyslipidemia cholesterol 232 PFSH Medical History Abdominal pain, LLQ Anxiety Asthma Gout Incisional hernia Incisional hernia Incisional pain Morbid obesity due to excess calories Obesity Obstructive sleep apnea Open wound anterior abdominal wall [id number] syndrome SBO (small bowel obstruction) SBO (small bowel obstruction) Surgical History H/O hernia repair Hx of carpal tunnel repair Status post Hattie's procedure Family History Mother Arthritis Father Arthritis Maternal Grandfather History of prostate cancer Maternal Grandmother History of breast cancer Social History Household Members: Significant Other, Family and Children Housing: Apartment Do you presently have visiting nurse or other home services: No Alcohol intake: former Year quit: 2019 Patient Tobacco Use Status: Former Tobacco user Quit Date: 20 years ago Second Hand Smoke Exposure: No Substance Use Type: Marijuana service: No Current occupational status: disabled 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 Review of Systems Const Denies chills and Denies fever(s) Card Reports no additional complaints and Denies syncope Resp Denies cough GI Denies abdominal pain and Denies heartburn Reports as per HPI and Denies change in libido Neuro Denies syncope Psych Denies change in libido Endo Denies change in libido Physical Exam Const General: cooperative, healthy appearing, comfortable and no acute distress Orientation/consciousness: patient oriented x3 HEENT Face and sinus: Yes normal facial exam Mouth: moist mucous membranes Neck Neck: Yes normal visual inspection, Yes full ROM and Yes trachea midline Chest Chest palpation & inspection: normal inspection of the chest Resp Effort & Inspection: normal respiratory effort, able to speak in complete sentences and no respiratory distress GI Inspection: Yes normal to inspection Back/Spine/Pelvis Cervical Spine: normal cervical lordosis Thoracic/Lumbar Spine: thoracic and lumbar spine normal to inspection Skin General skin exam: no rashes or lesions noted Neuro General: patient oriented x3, gait normal, tone normal and moves all extremities Extrem General: Yes normal to inspection and Yes capillary refill normal Assessment & Plan Assessment & Plan (1) Low libido: Code(s): R68.82 - Decreased libido Plan Two month follow-up Orders: Orders Testosterone, Free/Total 2 Months R68.82 - Decreased libido Medications: New tadalafil 10 mg PO DAILY 90 tabs 0RF sexual activity 90 days N52.01 - Erectile dysfunction due to arterial insufficiency, R68.82 - Decreased libido Patient Instructions: Imaging studies, laboratory and physical exam results were discussed and reviewed in detail. No major barriers to patient understanding were identified. An opportunity to ask questions regarding the treatment plan was provided. All questions were answered. The patient expressed understanding and agreement with the above treatment plan. The patient is aware they should contact our office by phone for worsening of their current condition or the appearance of new urologic symptoms. Compliance is encouraged with any medications and followup testing that is ordered. It is a privilege to participate in the urologic care of your patient. If you have any questions or concerns regarding treatment for the above conditions, or other urologic issues, please do not hesitate to contact me. The office telephone contact is [phone]. This note is constructed using voice recognition software. While every effort has been made to ensure accuracy glove cleaner errors may have been included. Yours sincerely, Dr Pasquale Shannon MD, [facility] - Urology Providers of Expert, Compassionate Care for the Genitourinary System Coding Level of Care Code Est Pt Level 4 (01786) Diagnoses Low libido R60.71
== END 2023-03-19 15:14 | disposition home or self-care (01) ==
PROVIDERS: PCP Family Medicine; Visit Provider Urology
DX: R68.82 Decreased libido (principal)
CPT/HCPCS: 99214

== ENCOUNTER → 2023-03-19 14:35 | Outpatient (BNVA) | payer OTHER, SELFPAY | PROVIDERS: PCP Family Medicine; Visit Provider Urology | DX: E29.1 Testicular hypofunction (principal); N52.01 Erectile dysfunction due to arterial insufficiency; R68.82 Decreased libido | CPT/HCPCS: 99212 ==

== ENCOUNTER 2023-03-21 14:42 | Outpatient (AMB) | payer OTHER, SELFPAY ==
--- NOTE | 2023-03-21 14:45 | MHC.OFFVIS ---
Intake Vital Signs 03/21/23 14:46 Height 5 ft 11 in Weight 344 lb BMI 48.0 Pulse 78 Pulse Source Pulse Oximeter Pulse Oximetry (%) 96 Oxygen Delivery Method Room Air Intake Visit Reasons: Shortness of breath Eye Glass Frame Polisher Required: No Allergies egg [EGGS] Allergy (Unknown, Verified 03/21/23 14:47) ITCHY THROAT,SWELLING LIPS JANELL cooking spray Allergy (Unknown, Uncoded 03/21/23 14:47) swelling in mouth/tongue HPI HPI Comments History of Present Illness Details The patient is here for pulmonary evaluation. The patient is a 52-year-old gentleman with a lifelong history of asthma although it was relatively controlled. The patient states that he was in his usual state health until August 2022 when he developed COVID 19 for the 2nd time. It was a relatively benign illness but afterwards he noted some difficulties with breathing. His asthma has been active and uncontrolled since then. He has required multiple courses the prednisone. He has been using his Wixela inhaler. He did try Trelegy in the past but that was not helpful actually made things worse. Therefore his continue with Wixela for now. The patient recently was seen by his primary care doctor was given additional prednisone. The patient has not had any formal allergy testing. He did have CT scan of the abdomen back in September which I personally reviewed and the lung with does appear to be clear without any evidence of any ground-glass opacities or scarring. Although he has never had chest x-ray this year. Therefore will going to request breathing studies and chest x-rays in addition to blood work and allergy testing. In the meantime will try to optimize the his respiratory therapy by adding budesonide nebs once a day and also adding anti muscarinic antagonist and also add a macrolide therapy 3 times a week. I am hopeful that he starts feeling better soon otherwise if he is not he can always call the office for an earlier assessment. Will follow-up after his PFTs. 03/21/2023 the patient is here for a pulmonary follow-up visit. She is feeling a lot better. Although he still having significant wheezing. The patient did not tolerate the Incruse therefore he stopped it. He continues on the Advair. The patient also has been using the nebulized therapy. Was also taking the antibiotic macrolide 3 times a week. We did review his blood work. His allergy testing is very significantly abnormal. His IgE levels up to 680. The patient has a normal eosinophilic level. The patient does benefit from starting biologic therapy with Xolair based on his ongoing uncontrolled asthma and also significant allergic chronic rhinitis. The patient is agreeable to starting. Will go ahead and start the prior approval process. The meantime he has been using the CPAP. CPAP therapy continues to be affecting beneficial. He did bring it in. He has been having difficulties with the nasal mask. He has as full beer. The patient will benefit from a AirTouch foam mask. I did have medium F20 available for him to trial. He will try it out and consider is a medium or large size. He will let me know. He currently gets supplies through [employer]. I also adjusted his machine from CPAP 11 to an APAP 7-13. Hopefully he can tolerate the APAP pressures more. [facility] Medical History Abdominal pain, LLQ Anxiety Asthma Gout Incisional hernia Incisional hernia Incisional pain Morbid obesity due to excess calories Obesity Obstructive sleep apnea Open wound anterior abdominal wall [id number] syndrome SBO (small bowel obstruction) SBO (small bowel obstruction) Surgical History H/O hernia repair Hx of carpal tunnel repair Status post Hattie's procedure Family History Mother Arthritis Father Arthritis Maternal Grandfather History of prostate cancer Maternal Grandmother History of breast cancer Social History Household Members: Significant Other, Family and Children Housing: Apartment Do you presently have visiting nurse or other home services: No Alcohol intake: former Year quit: 2019 Patient Tobacco Use Status: Former Tobacco user Quit Date: 20 years ago Second Hand Smoke Exposure: No Substance Use Type: Marijuana service: No Current occupational status: disabled 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 Review of Systems Const Denies chills and Denies fever(s) Eyes Denies change in vision ENT Denies change in voice Card Denies chest pain, Denies dyspnea and Reports dyspnea on exertion Resp Denies chest congestion, Reports cough, Denies dyspnea, Reports dyspnea on exertion and Reports wheezing GI Denies hematochezia and Denies change in bowel habits Musc Denies back pain and Denies limited range of motion Neuro Denies focal weakness and Denies convulsions Psych Denies depression and Denies mood swings Jose/Lymph Denies lymphadenopathy Aller/Immun Reports wheezing Physical Exam Vital Signs: Last Vital Signs Pulse 78 03/21/23 14:46 Pulse Ox 96 03/21/23 14:46 Oxygen Delivery Method Room Air 03/21/23 14:46 BMI result Body Mass Index 48.0 Const General: comfortable HEENT Head: Yes normal to inspection Eyes General: appearance normal, both eyes and all related structures Neck Neck: Yes supple Chest Chest palpation & inspection: normal inspection of the chest Resp Effort & Inspection: normal respiratory effort Auscultation: no rhonchi, wheezes and diminished lung sounds Cardio Rate: regular rate Rhythm: regular rhythm Heart sounds: S1 normal heart sound present and S2 normal heart sound present GI Palpation (GI): Soft to palpation General: Yes no CVA tenderness Back/Spine/Pelvis Back: no CVA tenderness Skin General skin exam: no rashes or lesions noted Extrem General: No clubbing, No cyanosis and Yes edema Assessment & Plan Assessment & Plan (1) Asthma: Code(s): J45.909 - Unspecified asthma, uncomplicated Qualifiers: Asthma complication type: uncomplicated Asthma persistence: persistent Asthma severity: severe Qualified Code(s): J45.50 - Severe persistent asthma, uncomplicated (2) Obstructive sleep apnea: Code(s): G47.33 - Obstructive sleep apnea (adult) (pediatric) (3) 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
[2023-03-21 14:46] VITALS: PULSE 78; O2SAT 96; BMI 48.0
== END 2023-03-21 15:18 | disposition home or self-care (01) ==
PROVIDERS: PCP Family Medicine; Visit Provider Hospitalist
DX: J45.50 Severe persistent asthma, uncomplicated (principal); G47.33 Obstructive sleep apnea (adult) (pediatric); U09.9 Post COVID-19 condition, unspecified
CPT/HCPCS: 99214

== ENCOUNTER → 2023-03-21 14:42 | Outpatient (BNVA) | payer OTHER, SELFPAY | PROVIDERS: PCP Family Medicine; Visit Provider Hospitalist | DX: J45.50 Severe persistent asthma, uncomplicated (principal); U09.9 Post COVID-19 condition, unspecified; G47.33 Obstructive sleep apnea (adult) (pediatric) | CPT/HCPCS: 99212 ==

== ENCOUNTER 2023-05-29 19:34 | Emergency (ER) | payer OTHER, SELFPAY ==
[2023-05-29 20:14] VITALS: BP 143/93; PULSE 83; RESP 20; TEMP 37.2; O2SAT 97; BMI 47.1
--- NOTE | 2023-05-29 20:14 | ED_ITS ---
HPI - Headache General Chief Complaint: Headache Stated Complaint: migraine Time Seen by Provider: 05/29/23 21:00 History of Present Illness HPI Narrative: Patient is a 52-year-old male who presents emergency department for evaluation of a headache. He states that he awoke from sleep at noon today with a posterior headache radiating to the frontal region with photosensitivity. He trial Tylenol 650 mg at 15:00 without improvement. He denies associated vision changes, dizziness, lightheadedness, neck pain, neck stiffness, recent URI symptoms, phonophobia, nausea, vomiting, chest pain, shortness of breath. He reports a history of similar headaches in the past have been attributed to high blood pressure. He states that after his medications were changed in the past his headaches had improved and were occuring less frequently. Additionally, he reports that for the past month he has been experiencing palpitations that are brief lasting only a few seconds at a time over the past month, he attributes this to periods of high anxiety, currently he denies having palpitations. Related Data Home Medications Medication Instructions Recorded Confirmed albuterol sulfate 90 mcg/actuation 2 puff inhalation Q6H PRN 03/26/22 05/30/22 aerosol inhaler (ProAir HFA) Respiratory Distress docusate sodium 100 mg capsule 100 mg PO BID 03/26/22 05/30/22 (Colace) epinephrine 0.3 mg/0.3 mL 0.3 mg IM Q4H PRN Anaphylaxis 03/26/22 05/30/22 injection, auto-injector (EpiPen) escitalopram oxalate 10 mg tablet 10 mg PO DAILY 03/26/22 05/30/22 (Lexapro) fluticasone 500 mcg-salmeterol 50 1 inh inhalation BID 03/26/22 05/30/22 mcg/dose blistr powdr for inhalation (Wixela Inhub) hydrochlorothiazide 25 mg tablet 25 mg PO DAILY 03/26/22 05/30/22 ibuprofen 800 mg tablet 800 mg PO Q6H PRN Pain 03/26/22 05/30/22 loratadine 10 mg tablet (Claritin) 10 mg PO DAILY 03/26/22 05/30/22 montelukast 10 mg tablet 10 mg PO DAILY 03/26/22 05/30/22 (Singulair) omeprazole 20 mg capsule,delayed 20 mg PO DAILY@0630 03/26/22 05/30/22 release tramadol 50 mg tablet 50 mg PO BID PRN Pain, Moderate 03/26/22 05/30/22 cetirizine 10 mg tablet 10 mg PO DAILY 02/04/23 ipratropium 0.5 mg-albuterol 3 mg ml inhalation 02/04/23 (2.5 mg base)/3 mL nebulization soln ipratropium bromide 21 mcg (0.03 intranasal 02/04/23 %) nasal spray nebulizers 02/04/23 losartan 25 mg tablet 0 mg PO 03/19/23 sodium chloride 0.65 % nasal spray spray intranasal 03/19/23 aerosol (Saline Nasal) CPAP (CPAP Machine/Device) 03/21/23 fluticasone propionate 50 1 spray intranasal QAM 03/21/23 mcg/actuation nasal spray,suspension Previous Rx's Medication Instructions Recorded umeclidinium 62.5 mcg/actuation 1 inh inhalation DAILY 30 days #30 02/04/23 blister powder for inhalation ea (Incruse Ellipta) tadalafil 5 mg tablet 5 mg PO DAILY sexual activity 90 02/20/23 days #90 tabs tadalafil 10 mg tablet 10 mg PO DAILY sexual activity 90 03/19/23 days #90 tabs allopurinol 100 mg tablet 200 mg (2 x 100 mg) PO DAILY #60 05/10/23 tabs Allergies Allergy/AdvReac Type Severity Reaction Status Date / Time egg [EGGS] Allergy Unknown ITCHY Verified 03/21/23 14:47 THROAT,SWELLING LIPS JANELL cooking spray Allergy Unknown swelling Uncoded 03/21/23 14:47 in mouth/tongue Review of Systems 2 Review of Systems: Yes all other systems are reviewed and are negative PMFSH Past Medical History Attestation statement: The following information was validated with the patient. 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 SBO (small bowel obstruction) Abdominal pain, LLQ Gout Morbid obesity due to excess calories Obstructive sleep apnea Obesity Open wound anterior abdominal wall Incisional pain Incisional hernia Anxiety Asthma Incisional hernia SBO (small bowel obstruction) Surgical History Hx of carpal tunnel repair Status post Hattie's procedure H/O hernia repair Family History Family History Mother Arthritis Father Arthritis Maternal Grandfather History of prostate cancer Maternal Grandmother History of breast cancer Social History Social History Household Members: Significant Other, Family and Children Housing: Apartment Do you presently have visiting nurse or other home services: No Alcohol intake: never Patient Tobacco Use Status: Former Tobacco user Quit Date: 20 years ago Smoked in Last 30 Days: No Second Hand Smoke Exposure: No Use of substances other than those prescribed or required for medical reasons: No Substance Use Type: Marijuana Advance Directives: No service: No Current occupational status: disabled 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 No acute distress.?Normal affect. Eyes: Pupils equal, round and reactive to light.? EOMI. No nystagmus. ENT: Pharynx normal.??TM normal bilaterally. Neck: Normal inspection.? Neck supple.??No midline cervical spine tenderness. CVS: Heart sounds normal. Normal heart rate and rhythm.? Pulses normal.?? Respiratory: No respiratory distress.? Lung sounds clear to auscultation bilaterally?? Abdomen: Soft and non-tender. Normoactive bowel sounds. Skin: Skin warm and dry.? Normal skin color.? Extremities: No lower extremity edema.? No calf ttp? Neuro: Moves all extremities spontaneously. Sensation intact bilaterally. CN II- XII intact. No focal neuro deficits. Negative Brudzinski/ Kernig sign. Ambulates with normal steady gait. Course Course Course Narrative: RME - 52 yo male with history of morbid obesity, asthma, KOBY, gout, anxiety, hypothyroidism, HTN who presents to the ER for evaluation of a migraine headache that started at noon today. Started frontal headache and now migrated to the left side of the head. +photosensitivity. No N/V. No history of migraine headaches. He also reports heart palpitations and tingling in his fingers for the last month that have been worsening. Plan: treat migraine, basic labs and EKG Reevaluation(s) Reevaluation #1: TSH is low at 0.17, with free T4 within normal range, reviewed these findings with patient, he states he has not been taking his Synthroid for at least greater than 6 months if not normal. He states that he stop taking after he was advised by his PCP that his levels were normal. recommended further evaluation and monitoring outpatient with PCP, advised that this may be attributing to the paresthesias he has experienced in his hands and the palpitations. Reports significant improvement in headache. Do at this time feel that he is stable for discharge home. Discussed worrisome signs and symptoms that would warrant re- evaluation emergency department. All questions answered. Time: 23:38 Medications Administered Discontinued Medications Generic Name Dose Route Start Last Admin Trade Name Tiffanie PRN Reason Stop Dose Admin Diphenhydramine HCl 25 mg 05/29/23 21:32 05/29/23 22:00 Diphenhydramine Hcl 50 Mg/Ml Vial IVPUSH 05/29/23 21:33 25 mg ONCE ONE Administration Sodium Chloride 1,000 mls @ 999 mls/hr 05/29/23 21:45 05/29/23 23:30 Ns IV 05/29/23 22:45 Infused .Q1H1M LINDSAY Infusion Ketorolac Tromethamine 30 mg 05/29/23 21:32 05/29/23 21:59 Ketorolac Tromethamine 30 Mg/Ml Vial IVPUSH 05/29/23 21:33 30 mg ONCE ONE Administration Metoclopramide HCl 10 mg 05/29/23 21:32 05/29/23 21:59 Metoclopramide Hcl 10 Mg/2 Ml Vial IVPUSH 05/29/23 21:33 10 mg ONCE ONE Administration Medical Decision Making Medical Decision Making MDM Narrative: Patient is a 52-year-old male past medical history of morbid obesity, asthma, KOBY, gout, anxiety, hypothyroidism, hypertension presenting to the emergency department for evaluation of a headache as per HPI without focal neurological deficits. He has a history of similar headaches in the past, denies any new characteristics of this headache, it is just worse than he has experienced previously. No meningismus, history and physical examination was consistent with a meningitis. He has no focal neurological deficits, low suspicion for ICH/SAH, intracranial mass, at this time would defer CT of the head. Although he is currently without palpitations, he did expressed concerns of this initially, he is without chest pain shortness of breath or anginal symptoms, he has attributed the palpitations to periods of anxiety. I have reviewed labs obtained prior to my assumption of care there is no leukocytosis or significant anemia, CMP is unremarkable. Will trial headache management with normal saline, IV Toradol/Reglan/Benadryl and re-evaluate. Differential Diagnosis Differential Diagnoses: The differential diagnosis associated with the presentation includes (As noted above) Lab Data MDM Lab Attestation statement: I reviewed the patient's lab results. (As noted above) 05/29/23 20:41 05/29/23 20:41 Labs: Lab Results 05/29/23 Range/Units 20:41 WBC 8.5 (4.8-10.8) X10*3/uL RBC 4.85 (4.60-5.80) X10*6/uL Hgb 13.8 L (14.0-18.0) g/dl Hct 42.2 (42.0-52.0) % MCV 87.0 (80.0-98.0) fL MCH 28.5 (27.0-33.0) pg MCHC 32.7 (31.0-36.0) g/dl RDW 14.1 (11.0-16.0) % Plt Count 289 (160-400) X10*3/uL MPV 8.5 L (9.4-12.4) fL Immature Gran % (Auto) 0.8 H (0.0-0.4) % Neut % (Auto) 56.1 (45-73) % Lymph % (Auto) 29.9 (20-40) % Hughes % (Auto) 10.6 (2-11) % Eos % (Auto) 2.2 (0-4) % Baso % (Auto) 0.4 (0-2) % Lymph # (Auto) 2.5 (1.2-4.9) X10*3/uL Hughes # (Auto) 0.9 (0.1-1.2) X10*3/uL Eos # (Auto) 0.2 (0.0-0.4) X10*3/uL Baso # (Auto) 0.0 (0.0-0.2) X10*3/uL Abs Immat Gran (auto) 0.07 H (0.00-0.03) X10*3/uL Absolute Neuts (auto) 4.7 (2.0-8.3) x10*3/uL Absolute Nucleated RBC 0.000 (0.0-0.012) X10*3/uL Nucleated RBC % (auto) 0.0 (0.0-0.2) /100WBC Sodium 139 (135-145) mmol/L Potassium 3.7 (3.3-5.1) mmol/L Chloride 104 (96-108) mmol/L Carbon Dioxide 24 (22-29) mmol/L Anion Gap 15 (12-20) BUN 13 (9-16) mg/dL Creatinine 0.82 (0.5-1.4) mg/dL Estim Creat Clear Calc 162.3 Estimated GFR > 60 Random Glucose 97 (60-115) mg/dL Calcium 9.9 (8.4-10.2) mg/dL Magnesium 2.1 (1.6-2.6) mg/dL Total Bilirubin 0.3 (0.0-1.0) mg/dL Direct Bilirubin 0.1 (0.0-0.5) mg/dL AST 22 (5-37) U/L ALT 21 (0-40) U/L Alkaline Phosphatase 77 (39-117) U/L Total Protein 7.8 (6.5-8.0) g/dL Albumin 4.0 (3.5-5.0) g/dL TSH 0.17 L (0.32-4.0) uIU/mL Free T4 0.80 (0.71-1.85) ng/dL Independent Interpretation I performed an independent interpretation of an: EKG Interpretation: Rate:79 Rhythm:? Normal sinus rhythm Hudson:? Normal Normal P waves.? Normal ZONIA.?? Normal QRS complex.?? ST T wave :??No ST elevation, no ST depression, no T-wave inversion qTC:424 The study has been interpreted contemporaneously by me. External Record Review External record reviewed: Outpatient record and Prior outpatient labs Tests considered The following testing was considered but not selected: As noted above Discharge Plan Discharge Clinical Impression: Headache, Palpitations Patient Disposition: Home, Self-Care Additional Instructions: Please be sure to rest over the next few days, stay well hydrated, eat small frequent meals. You can take ibuprofen 200 mg, 3 tablets (600mg) every 6-8 hours as needed for pain, in addition to Tylenol 500 mg, 2 tablets (1,000mg) every 4- 6 hours as needed for pain, but not to exceed 3 doses daily (3,000mg).? Continue taking all of your medications as prescribed by your doctor. Regarding your thyroid As discussed, your TSH today was low, and your free T4 level is within normal range, but low normal. Please contact your primary care provider to arrange for a follow-up visit, and further management Prescriptions: No Action allopurinol 100 mg tablet 200 mg PO DAILY Qty: 60 0RF albuterol sulfate [ProAir HFA] 90 mcg/actuation HFA aerosol inhaler 2 puff inhalation Q6H PRN (Reason: Respiratory Distress) hydrochlorothiazide 25 mg tablet 25 mg PO DAILY docusate sodium [Colace] 100 mg capsule 100 mg PO BID loratadine [Claritin] 10 mg tablet 10 mg PO DAILY montelukast [Singulair] 10 mg tablet 10 mg PO DAILY escitalopram oxalate [Lexapro] 10 mg tablet 10 mg PO DAILY omeprazole 20 mg capsule,delayed release(DR/EC) 20 mg PO DAILY@0630 fluticasone propion-salmeterol [Wixela Inhub] 500-50 mcg/dose blister with device 1 inh inhalation BID epinephrine [EpiPen] 0.3 mg/0.3 mL auto-injector 0.3 mg IM Q4H PRN (Reason: Anaphylaxis) ibuprofen 800 mg tablet 800 mg PO Q6H PRN (Reason: Pain) Rx Instructions: administer with food tramadol 50 mg tablet 50 mg PO BID PRN (Reason: Pain, Moderate) losartan 25 mg tablet 0 mg PO Saline Nasal 0.65 % aerosol,spray intranasal tadalafil 10 mg tablet 10 mg PO DAILY 90 Days Qty: 90 0RF ipratropium-albuterol 0.5 mg-3 mg(2.5 mg base)/3 mL solution for nebulization 3 ml inhalation ONCE Qty: 3 0RF ipratropium bromide 21 mcg (0.03 %) spray,non-aerosol intranasal cetirizine 10 mg tablet 10 mg PO DAILY ipratropium-albuterol 0.5 mg-3 mg(2.5 mg base)/3 mL solution for nebulization inhalation (DME) nebulizers [facility] [place] See Rx Instructions .ROUTE Rx Instructions: As directed Incruse Ellipta 62.5 mcg/actuation blister with device 1 inh inhalation DAILY 30 Days Qty: 30 11RF tadalafil 5 mg tablet 5 mg PO DAILY 90 Days Qty: 90 1RF fluticasone propionate 50 mcg/actuation spray,suspension 1 spray intranasal QAM (DME) CPAP Machine/Device Device See Rx Instructions .ROUTE Rx Instructions: As directed Referrals: Patricia Berry MD [Primary Care Provider] -
--- NOTE | 2023-05-29 20:18 | ECG_ITS ---
Test Reason : CHEST PAIN Blood Pressure : / mmHG Vent. Rate : 079 BPM Atrial Rate : 079 BPM P-R Int : 158 ms QRS Dur : 092 ms QT Int : 370 ms P-R-T Axes : -08 -11 -08 degrees QTc Int : 424 ms Normal sinus rhythm Normal ECG When compared with ECG of 16-JUL-2022 20:41, Premature ventricular complexes are no longer Present Referred By: Fartun Gulilen Electronically Signed By:KAMRON LIU MD
[2023-05-29 20:50] LABS: MANUAL DIFF FLAG NO
[2023-05-29 20:52] LABS: Basophils Percent Auto 0.4 % (0-2); Eosinophils Absolute Auto 0.2 X10*3/uL (0.0-0.4); Eosinophils Percent Auto 2.2 % (0-4); Hematocrit 42.2 % (42.0-52.0); Hemoglobin 13.8 g/dl (14.0-18.0); Imm Gran Abs Auto 0.07 X10*3/uL (0.00-0.03); Imm Gran Pct Auto 0.8 % (0.0-0.4); Lymphocytes Absolute Auto 2.5 X10*3/uL (1.2-4.9); Lymphocytes Percent Auto 29.9 % (20-40); Mean Corpuscular HGB Conc 32.7 g/dl (31.0-36.0); Mean Corpuscular Hemoglobin 28.5 pg (27.0-33.0); Mean Platelet Volume 8.5 fL (9.4-12.4); Monocytes Absolute Auto 0.9 X10*3/uL (0.1-1.2); Monocytes Percent Auto 10.6 % (2-11); Neutrophils Absolute Auto 4.7 x10*3/uL (2.0-8.3); Neutrophils Percent Auto 56.1 % (45-73); Platelet Count 289 X10*3/uL (160-400); Red Blood Count 4.85 X10*6/uL (4.60-5.80); Red Cell Distribution Width 14.1 % (11.0-16.0); White Blood Count 8.5 X10*3/uL (4.8-10.8)
[2023-05-29 21:27] LABS: Alanine Aminotransferase 21 U/L (0-40); Alkaline Phosphatase 77 U/L (39-117); Anion Gap 15 (12-20); Aspartate Amino Transferase 22 U/L (5-37); Bilirubin Direct 0.1 mg/dL (0.0-0.5); Bilirubin Total 0.3 mg/dL (0.0-1.0); Blood Urea Nitrogen 13 mg/dL (9-16); Calcium 9.9 mg/dL (8.4-10.2); Carbon Dioxide 24 mmol/L (22-29); Chloride 104 mmol/L (96-108); Creatinine Clr Calc Pharmacy 162.3; Estimated Glomerular Filt Rate > 60; Glucose Random 97 mg/dL (60-115); Magnesium 2.1 mg/dL (1.6-2.6); Potassium 3.7 mmol/L (3.3-5.1); Sodium 139 mmol/L (135-145); Total Protein 7.8 g/dL (6.5-8.0)
--- NOTE | 2023-05-29 21:30 | PC.NURSE ---
Pt ambulated in to room with a steady gait, reporting 10/10 head pressure. IV line placed IVF running, meds given per OCT. Pt resting in stretcher, plan of care ongoing.
[2023-05-29 21:41] LABS: TSH reflex Free T4 0.17 uIU/mL (0.32-4.0)
[2023-05-29] MEDS: Ketorolac Tromethamine 30 MG/ML VIAL IVPUSH (21:59)
[2023-05-29] MEDS: Metoclopramide HCl 10 MG/2 ML VIAL IVPUSH (21:59)
[2023-05-29] MEDS: diphenhydrAMINE HCL 50 MG/ML VIAL 25 MG IVPUSH (22:00)
[2023-05-29] MEDS: 0.9 % Sodium Chloride 1,000 ML 999 ML IV (22:02)
== END 2023-05-30 01:04 | disposition home or self-care (01) ==
PROVIDERS: Physician Assistant; Emergency Provider Internal Medicine; PCP Family Medicine
DX: R51.9 Headache, unspecified (principal); R00.2 Palpitations; Z79.899 Other long term (current) drug therapy; Z87.891 Personal history of nicotine dependence
CPT/HCPCS: 36415; 80048; 80076; 83735; 84439; 84443; 85025; 93005; 96361; 96374; 96375; 99284; 99285; J1200; J1885; J2765

== ENCOUNTER 2023-05-30 14:04 | Outpatient (REF) | payer OTHER, SELFPAY ==
[2023-06-03 15:29] LABS: Testosterone, Free 31.1 pg/mL (35.0-155.0); Testosterone, Total 275 ng/dL (250-1100)
== END 2023-05-30 14:05 | disposition home or self-care (01) ==
LOC: HO.LAB 14:04
PROVIDERS: PCP Family Medicine; Visit Provider Urology
DX: R68.82 Decreased libido (principal)
CPT/HCPCS: 36415; 84402; 84403

== ENCOUNTER 2023-07-09 13:41 | Outpatient (AMB) | payer OTHER, SELFPAY ==
--- NOTE | 2023-07-09 13:41 | A.OFFVIS_ITS ---
Intake Intake Visit Reasons: lab-follow up Intake Note: Patient is present for Telephone Follow Up Testosterone Urology Med: Tadalafil Antibiotic Allergy: None Blood Thinner: None Allergies egg [EGGS] Allergy (Unknown, Verified 07/09/23 13:42) ITCHY THROAT,SWELLING LIPS JANELL cooking spray Allergy (Unknown, Uncoded 07/09/23 13:42) swelling in mouth/tongue HPI HPI Comments History of Present Illness Details Brady is a pleasant male. He is a patient of . He is seen for the following urologic conditions - hypogonadism Telemedicine Evaluation 15 min Consultation [employer] [facility] Video attempted Continue daily tadalafil Patient felt increased libido, general improvement in well being lost on medication When he stopped the medication within 1 week he noticed that he was feeling back to being lethargic Lab work had shown a marginal improvement in testosterone Decreased libido/hypogonadism Progressive Initial lab work shows borderline T with elevated FSH suggestive of depressed testicular response Labs - 03/03 T250 FT 32, FSH 16, LH 7.7, 06/03 275 FT 32 Associated conditions include obesity - dyslipidemia cholesterol 232 PFSH Medical History [id number] syndrome SBO (small bowel obstruction) Abdominal pain, LLQ Gout Morbid obesity due to excess calories Obstructive sleep apnea Obesity Open wound anterior abdominal wall Incisional pain Incisional hernia Anxiety Asthma Incisional hernia SBO (small bowel obstruction) Surgical History Hx of carpal tunnel repair Status post Hattie's procedure H/O hernia repair Family History Mother Arthritis Father Arthritis Maternal Grandfather History of prostate cancer Maternal Grandmother History of breast cancer Social History Household Members: Significant Other, Family and Children Housing: Apartment Do you presently have visiting nurse or other home services: No Alcohol intake: never Comment: pt asleep Patient Tobacco Use Status: Former Tobacco user Quit Date: 20 years ago Second Hand Smoke Exposure: No Substance Use Type: Marijuana service: No Current occupational status: disabled 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 Review of Systems Const All systems reviewed & are unremarkable except as noted in HPI and below Reports no additional complaints Resp Reports no additional complaints GI Reports no additional complaints Reports as per HPI Musc Reports no additional complaints Physical Exam Telemedicine evaluation Appropriate responses Regular breathing rate and rhythm HEENT Head: Yes normal to inspection Ears: hearing grossly normal bilaterally Eyes General: appearance normal, both eyes and all related structures Neck Neck: Yes normal visual inspection Chest Chest palpation & inspection: normal inspection of the chest Resp Effort & Inspection: normal respiratory effort and able to speak in complete sentences Assessment & Plan Assessment & Plan (1) Low libido: Code(s): R68.82 - Decreased libido Plan Continue tadalafil Orders: Orders Testosterone, Free/Total 6 Months R68.82 - Decreased libido Medications: Refilled tadalafil 10 mg PO DAILY 90 days 90 tabs 1RF sexual activity N52.01 - Erectile dysfunction due to arterial insufficiency, R68.82 - Decreased libido Patient Instructions: Imaging studies, laboratory and physical exam results were discussed and revi ewed in detail. No major barriers to patient understanding were identified. An opportunity to ask questions regarding the treatment plan was provided. All questions were answered. The patient expressed understanding and agreement with the above treatment plan. The patient is aware they should contact our office by phone for worsening of their current condition or the appearance of new urologic symptoms. Compliance is encouraged with any medications and followup testing that is ordered. It is a privilege to participate in the urologic care of your patient. If you have any questions or concerns regarding treatment for the above conditions, or other urologic issues, please do not hesitate to contact me. The office telephone contact is [phone]. This note is constructed using voice recognition software. While every effort has been made to ensure accuracy vehicle maintenance technician errors may have been included. Yours sincerely, Dr Pasquale Shannon MD, [facility] - Urology Providers of Expert, Compassionate Care for the Genitourinary System Telehealth Telehealth Location of provider rendering services: practice address (home address) Location of patient: address on file Patient Identification confirmed using: Name, : Yes Telehealth method: video Patient verbally consented to treatment: Yes Patient verbally consented to billing insurance company: Yes Patient informed of any privacy concerns related to visit: Yes Coding Level of Care Code Tele Est Pt Level 3 (38269) Diagnoses Low libido R68.82
== END 2023-07-09 13:55 | disposition home or self-care (01) ==
LOC: HO.HUSH 13:41
PROVIDERS: PCP Family Medicine; Visit Provider Urology
DX: R68.82 Decreased libido (principal)
CPT/HCPCS: 99213

== ENCOUNTER → 2023-07-09 13:41 | Outpatient (BNVA) | payer OTHER, SELFPAY | PROVIDERS: PCP Family Medicine; Visit Provider Urology ==

== ENCOUNTER 2023-07-10 13:48 | Emergency (ER) | payer OTHER, SELFPAY ==
--- NOTE | ~2023-07-10 | CT_ITS ---
EXAMINATION: CT ABDOMEN AND PELVIS WITH CONTRAST CLINICAL INFORMATION: Abd pain, ?hernia, colostomy reversal COMPARISON: 09/27/2022 TECHNIQUE: Multidetector volumetric images were obtained from the superior aspect of the liver through the pubic symphysis following administration 85 mL of Omnipaque 350 intravenous contrast. Sagittal and coronal reformatted images were obtained on the technologist's workstation. Oral contrast: No This CT examination was performed using dose optimization techniques as appropriate, variously including the following: *Automated exposure control *Adjustment of mA and/or kV according to patient size (this includes techniques or standardized protocols for targeted exams where dose is matched to indication/reason for exam; i.e. extremities or head) *Use of iterative reconstruction technique DLP: 1372 mGy-cm FINDINGS: LUNG BASES: Suspected segment of chronic airway impaction in the left lower lobe, partially visualized. LIVER, GALLBLADDER, AND BILIARY TREE: The liver is normal in size, shape, and attenuation. No focal hepatic lesion or biliary ductal dilatation is identified on this noncontrast exam. The gallbladder is unremarkable with no evidence of radiopaque gallstones, gallbladder wall thickening, or obvious pericholecystic inflammatory changes. PANCREAS: Unremarkable. SPLEEN: Unremarkable. ADRENAL GLANDS: Unremarkable. KIDNEYS AND URETERS: No hydronephrosis or obstructing calculus bilaterally. Redemonstrated left renal sinus cyst; no follow-up recommended. BLADDER: Unremarkable. GASTROINTESTINAL TRACT: Suture line is present in the region of the sigmoid colon. Mild colonic diverticulosis. The small and large bowel are otherwise unremarkable without evidence of obstruction or pericolonic inflammatory change. The appendix is unremarkable. No free fluid or free air is seen. ABDOMINAL WALL: There is a redemonstrated left lower quadrant spigelian hernia containing nondilated loops of small bowel. Small fat-containing umbilical hernia also again noted. LYMPH NODES: Normal. VASCULAR: Unremarkable. PELVIC VISCERA: Unremarkable. OSSEOUS STRUCTURES: Degenerative changes are noted in the spine. Redemonstrated bilateral L5 pars defects with anterolisthesis of L5 on S1. CT/CT abdomen pelvis w IV con IMPRESSION: No acute findings identified in the abdomen/pelvis. Redemonstrated left lower quadrant Spigelian hernia containing nondilated loops of small bowel.
[2023-07-10 14:05] VITALS: BP 140/84; PULSE 88; RESP 18; TEMP 36.6; O2SAT 98; BMI 47.7
--- NOTE | 2023-07-10 14:06 | ED_ITS ---
HPI - General Adult General Chief complaint: GI Bleed Stated complaint: Bleeding when using bathroom Time Seen by Provider: 07/11/23 00:17 Source: patient and family Mode of arrival: ambulatory Limitations: no limitations History of Present Illness HPI narrative: Patient comes to the emergency room complaining of left lower quadrant pain and rectal bleeding. Patient states he has history of diverticulitis with perforation for which he required a colostomy and reversal after a year. Patient has had multiple hernia surgeries and small-bowel obstructions. Patient states that he has had 3 episodes of normal formed stool with blood. Patient complaining of constant left lower quadrant pain nonradiating. Patient denies hematuria dysuria, no fever or chills. Related Data Home Medications Medication Instructions Recorded Confirmed albuterol sulfate 90 mcg/actuation 2 puff inhalation Q6H PRN 03/26/22 05/30/22 aerosol inhaler (ProAir HFA) Respiratory Distress docusate sodium 100 mg capsule 100 mg PO BID 03/26/22 05/30/22 (Colace) epinephrine 0.3 mg/0.3 mL 0.3 mg IM Q4H PRN Anaphylaxis 03/26/22 05/30/22 injection, auto-injector (EpiPen) escitalopram oxalate 10 mg tablet 10 mg PO DAILY 03/26/22 05/30/22 (Lexapro) fluticasone 500 mcg-salmeterol 50 1 inh inhalation BID 03/26/22 05/30/22 mcg/dose blistr powdr for inhalation (Wixela Inhub) hydrochlorothiazide 25 mg tablet 25 mg PO DAILY 03/26/22 05/30/22 ibuprofen 800 mg tablet 800 mg PO Q6H PRN Pain 03/26/22 05/30/22 loratadine 10 mg tablet (Claritin) 10 mg PO DAILY 03/26/22 05/30/22 montelukast 10 mg tablet 10 mg PO DAILY 03/26/22 05/30/22 (Singulair) omeprazole 20 mg capsule,delayed 20 mg PO DAILY@0630 03/26/22 05/30/22 release tramadol 50 mg tablet 50 mg PO BID PRN Pain, Moderate 03/26/22 05/30/22 cetirizine 10 mg tablet 10 mg PO DAILY 02/04/23 ipratropium 0.5 mg-albuterol 3 mg ml inhalation 02/04/23 (2.5 mg base)/3 mL nebulization soln ipratropium bromide 21 mcg (0.03 intranasal 02/04/23 %) nasal spray nebulizers 02/04/23 losartan 25 mg tablet 0 mg PO 03/19/23 sodium chloride 0.65 % nasal spray spray intranasal 03/19/23 aerosol (Saline Nasal) CPAP (CPAP Machine/Device) 03/21/23 fluticasone propionate 50 1 spray intranasal QAM 03/21/23 mcg/actuation nasal spray,suspension Previous Rx's Medication Instructions Recorded umeclidinium 62.5 mcg/actuation 1 inh inhalation DAILY 30 days #30 02/04/23 blister powder for inhalation ea (Incruse Ellipta) tadalafil 5 mg tablet 5 mg PO DAILY sexual activity 90 02/20/23 days #90 tabs allopurinol 100 mg tablet 200 mg (2 x 100 mg) PO DAILY #180 06/05/23 tabs tadalafil 10 mg tablet 10 mg PO DAILY sexual activity 90 07/09/23 days #90 tabs levofloxacin 500 mg tablet 500 mg PO DAILY #10 tabs 07/11/23 metronidazole 500 mg tablet 500 mg PO BID #20 tabs 07/11/23 oxycodone 5 mg tablet 5 mg PO BID PRN pain #7 tabs 07/11/23 Allergies Allergy/AdvReac Type Severity Reaction Status Date / Time No Known Allergies Allergy Verified 07/10/23 14:04 Review of Systems 2 Review of Systems: Constitutional : No Weight loss, No Fever, No Chills, No Night Sweats, No Fatigue, No Malaise ENT/Mouth : No Hearing loss, No Ear Pain, No Nasal Congestion, No Sinus Pain, No Hoarseness, No sore throat, No Rhinorrhea, No Swallowing Difficulty Eyes: No Eye Pain, No Swelling, No Redness, No Foreign Body, No Discharge, No Vision Changes Cardiovascular : No Chest Pain, No SOB, No Dyspnea on Exertion, No Orthopnea, No Edema, No Palpitations Respiratory : No Cough, No Sputum, No Wheezing, No Smoke Exposure, No Dyspnea Gastrointestinal : No Nausea, No Vomiting, No Diarrhea, No Constipation, complaining of left lower quadrant pain and bright red blood per rectum Genitourinary : no irregular bleeding, No Dysuria, No Urinary Frequency, No Hematuria, No Urinary Incontinence, No Urgency, No Flank Pain, No Urinary Flow Changes, No Hesitancy Musculoskeletal : No joint pain, No Myalgias, No Joint Swelling Skin : No Skin Lesions, No rash Neuro : No Weakness, No Numbness, No Paresthesias, No Loss of Consciousness, No Dizziness, No Headache Psych : No Anxiety/Panic, No Depression, No SI/HI/AH/VH, No Social Issues, Heme/Lymph: No Bruising, No Bleeding,No Lymphadenopathy Endocrine : No Polyuria, No Polydipsia, No Temperature Intolerance [facility] Past Medical History Medical History 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 SBO (small bowel obstruction) Abdominal pain, LLQ Gout Morbid obesity due to excess calories Obstructive sleep apnea Obesity Open wound anterior abdominal wall Incisional pain Incisional hernia Anxiety Asthma Incisional hernia SBO (small bowel obstruction) Surgical History Hx of carpal tunnel repair Status post Hattie's procedure H/O hernia repair Family History Family History Mother Arthritis Father Arthritis Maternal Grandfather History of prostate cancer Maternal Grandmother History of breast cancer Social History Social History Household Members: Significant Other, Family and Children Housing: Apartment Do you presently have visiting nurse or other home services: No Alcohol intake: never Comment: pt asleep Patient Tobacco Use Status: Former Tobacco user Quit Date: 20 years ago Smoked in Last 30 Days: No Second Hand Smoke Exposure: No Use of substances other than those prescribed or required for medical reasons: No Substance Use Type: Marijuana Advance Directives: No Advance Directives Information Provided: Yes service: No Current occupational status: disabled 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 Oriented X3. No acute distress. Eyes: Pupils equal, round and reactive to light. ENT: Pharynx normal. Neck: Normal inspection. Neck supple. No lymph nodes noted. No crepitus CVS: Normal heart rate and rhythm. Pulses normal. Normal S1 and S2 Respiratory: No respiratory distress. Breath sounds normal. No Wheezing. No rales Abdomen: Soft , moderate pain to palpation over the left lower quadrant, no flank pain, no rebound or guarding Skin: Skin warm and dry. Normal skin color. Normal skin turgor. Extremities: No lower extremity edema. No Lacerations. No Rash Neuro: Oriented X 3. No motor deficit. No sensory deficit. Moving all extremities. No slurred speech. CN 2 through 12 grossly intact Psych: calm, cooperative, normal affect Course Course Course Narrative: This is an RME: Additional HPI, ROS, PE not included below will be deferred to primary provider. This is a [id number], with a hx of bowel rupture requiring colostomy bag reversal 9 years ago SBO, gout, KOBY, asthma, presenting to the ER with a complaint of abdominal pain and BRBPR with bowel movements. Pt of Dr. Nowak. Plan: Labs, may need CT w/ con for eval Medications Administered Discontinued Medications Generic Name Dose Route Start Last Admin Trade Name Freq PRN Reason Stop Dose Admin Sodium Chloride 1,000 mls @ 999 mls/hr 07/11/23 00:33 07/11/23 02:20 Ns IVCONT 07/11/23 01:33 999 mls/hr .Q1H1M ONE Administration Iohexol 85 ml 07/11/23 02:16 07/11/23 02:17 Iohexol 350 Mg/Ml 100 Ml Infus..Btl IV 07/11/23 02:17 85 ml ONCE ONE Administration Morphine Sulfate 4 mg 07/11/23 00:33 07/11/23 02:21 Morphine Sulfate 4 Mg/Ml Cartridge IVPUSH 07/11/23 00:34 4 mg ONCE ONE Administration Protocol Ondansetron HCl 4 mg 07/11/23 00:33 07/11/23 02:21 Ondansetron Hcl 4 Mg/2 Ml Vial IVPUSH 07/11/23 00:34 4 mg ONCE ONE Administration Medical Decision Making Medical Decision Making [facility] Narrative: -my interpretation of labs, normal hematology, normal chemistry research assistant, normal urinalysis, guaiac test was heme-positive -my interpretation of CT scan: No obvious source of GI bleed, no SBO -I discussed with the patient the radiology report. It is possible the patient may have colitis, patient being treated with metronidazole and Levaquin p.o.. -discussed the plan with the patient, patient agreeable, patient feels well enough to be discharged home. Differential Diagnosis Differential Diagnoses: The differential diagnosis associated with the presentation includes (Diverticulitis, colitis, kidney stone, UTI, pyelonephritis) Admission/Observation Consideration of admission/observation: Escalation of care including admission/observation considered (Given the patient's initial symptoms and presentation, patient was considered) Lab Data MDM Lab Attestation statement: I reviewed the patient's lab results. 07/10/23 16:23 07/10/23 16:23 Labs: Lab Results 07/10/23 07/11/23 07/11/23 Range/Units 16: 00:34 01:02 WBC 10.2 (4.8-10.8) X10*3/uL RBC 4.71 (4.60-5.80) X10*6/uL Hgb 13.9 L (14.0-18.0) g/dl Hct 41.9 L (42.0-52.0) % MCV 89.0 (80.0-98.0) fL MCH 29.5 (27.0-33.0) pg MCHC 33.2 (31.0-36.0) g/dl RDW 14.0 (11.0-16.0) % Plt Count 296 (160-400) X10*3/uL MPV 9.0 L (9.4-12.4) fL Immature Gran % (Auto) 0.9 H (0.0-0.4) % Neut % (Auto) 62.8 (45-73) % Lymph % (Auto) 21.3 (20-40) % Sharkey % (Auto) 10.0 (2-11) % Eos % (Auto) 4.5 H (0-4) % Baso % (Auto) 0.5 (0-2) % Lymph # (Auto) 2.2 (1.2-4.9) X10*3/uL Sharkey # (Auto) 1.0 (0.1-1.2) X10*3/uL Eos # (Auto) 0.5 H (0.0-0.4) X10*3/uL Baso # (Auto) 0.1 (0.0-0.2) X10*3/uL Abs Immat Gran (auto) 0.09 H (0.00-0.03) X10*3/uL Absolute Neuts (auto) 6.4 (2.0-8.3) x10*3/uL Absolute Nucleated RBC 0.000 (0.0-0.012) X10*3/uL Nucleated RBC % (auto) 0.0 (0.0-0.2) /100WBC Sodium 140 (135-145) mmol/L Potassium 4.5 D (3.3-5.1) mmol/L Chloride 106 (96-108) mmol/L Carbon Dioxide 28 (22-29) mmol/L Anion Gap 11 L (12-20) BUN 14 (9-16) mg/dL Creatinine 0.91 (0.5-1.4) mg/dL Estim Creat Clear Calc 147.2 Estimated GFR > 60 Random Glucose 88 (60-115) mg/dL Calcium 9.5 (8.4-10.2) mg/dL Total Bilirubin 0.3 (0.0-1.0) mg/dL Direct Bilirubin 0.1 (0.0-0.5) mg/dL AST 22 (5-37) U/L ALT 18 (0-40) U/L Alkaline Phosphatase 76 (39-117) U/L Total Protein 7.9 (6.5-8.0) g/dL Albumin 3.9 (3.5-5.0) g/dL Lipase 34 (8-78) U/L Urine Color Yellow Urine Appearance Clear Urine pH 6.0 (5.0-9.0) Ur Specific Calvin 1.025 (1.005-1.025) Urine Protein Negative (Neg-Trace) mg/dL Urine Glucose (UA) Negative (Negative) mg/dL Urine Ketones Negative (Negative) mg/dL Urine Blood Negative (Negative) Urine Nitrite Negative (Negative) Ur Leukocyte Esterase Negative (Negative) Stool Occult Blood POSITIVE (NEGATIVE) Independent Interpretation I performed an independent interpretation of an: CT Scan Radiology Impression Discussion of test interpretation with radiology: I have reviewed the radiologist's reading. Radiologist Impression: INDINGS: LUNG BASES: Suspected segment of chronic airway impaction in the left lower lobe, partially visualized. LIVER, GALLBLADDER, AND BILIARY TREE: The liver is normal in size, shape, and attenuation. No focal hepatic lesion or biliary ductal dilatation is identified on this noncontrast exam. The gallbladder is unremarkable with no evidence of radiopaque gallstones, gallbladder wall thickening, or obvious pericholecystic inflammatory changes. PANCREAS: Unremarkable. SPLEEN: Unremarkable. ADRENAL GLANDS: Unremarkable. KIDNEYS AND URETERS: No hydronephrosis or obstructing calculus bilaterally. Redemonstrated left renal sinus cyst; no follow-up recommended. BLADDER: Unremarkable. GASTROINTESTINAL TRACT: Suture line is present in the region of the sigmoid colon. Mild colonic diverticulosis. The small and large bowel are otherwise unremarkable without evidence of obstruction or pericolonic inflammatory change. The appendix is unremarkable. No free fluid or free air is seen. ABDOMINAL WALL: There is a redemonstrated left lower quadrant spigelian hernia containing nondilated loops of small bowel. Small fat-containing umbilical hernia also again noted. LYMPH NODES: Normal. VASCULAR: Unremarkable. PELVIC VISCERA: Unremarkable. OSSEOUS STRUCTURES: Degenerative changes are noted in the spine. Redemonstrated bilateral L5 pars defects with anterolisthesis of L5 on S1. CT/CT abdomen pelvis w IV con IMPRESSION: No acute findings identified in the abdomen/pelvis. Redemonstrated left lower quadrant Spigelian hernia containing nondilated loops of small bowel. Critical Care Time Critical Care Time Critical Care Time: Yes Total Critical Care Time: 60 Attestation: I have personally provided critical care time. Time includes review of lab data, radiology results, discussion with consultants, and monitoring for potential decompensation. Intervention performed as documented. Discharge Plan Discharge Clinical Impression: Colitis Patient Disposition: Home, Self-Care Instructions: Colitis (ED) Additional Instructions: Please follow-up with your primary care physician tomorrow. If you have any worsening or new symptoms, please return to the emergency room or call 911 Prescriptions: New levofloxacin 500 mg tablet 500 mg PO DAILY Qty: 10 0RF metronidazole 500 mg tablet 500 mg PO BID Qty: 20 0RF oxycodone 5 mg tablet 5 mg PO BID PRN (Reason: pain) Qty: 7 0RF Rx Instructions: Partial Fill upon patient request. No Action allopurinol 100 mg tablet 200 mg PO DAILY Qty: 180 0RF albuterol sulfate [ProAir HFA] 90 mcg/actuation HFA aerosol inhaler 2 puff inhalation Q6H PRN (Reason: Respiratory Distress) hydrochlorothiazide 25 mg tablet 25 mg PO DAILY docusate sodium [Colace] 100 mg capsule 100 mg PO BID loratadine [Claritin] 10 mg tablet 10 mg PO DAILY montelukast [Singulair] 10 mg tablet 10 mg PO DAILY escitalopram oxalate [Lexapro] 10 mg tablet 10 mg PO DAILY omeprazole 20 mg capsule,delayed release(DR/EC) 20 mg PO DAILY@0630 fluticasone propion-salmeterol [Wixela Inhub] 500-50 mcg/dose blister with device 1 inh inhalation BID epinephrine [EpiPen] 0.3 mg/0.3 mL auto-injector 0.3 mg IM Q4H PRN (Reason: Anaphylaxis) ibuprofen 800 mg tablet 800 mg PO Q6H PRN (Reason: Pain) Rx Instructions: administer with food tramadol 50 mg tablet 50 mg PO BID PRN (Reason: Pain, Moderate) losartan 25 mg tablet 0 mg PO Saline Nasal 0.65 % aerosol,spray intranasal ipratropium-albuterol 0.5 mg-3 mg(2.5 mg base)/3 mL solution for nebulization 3 ml inhalation ONCE Qty: 3 0RF ipratropium bromide 21 mcg (0.03 %) spray,non-aerosol intranasal cetirizine 10 mg tablet 10 mg PO DAILY ipratropium-albuterol 0.5 mg-3 mg(2.5 mg base)/3 mL solution for nebulization inhalation (DME) nebulizers [facility] – [place], [place] See Rx Instructions .ROUTE Rx Instructions: As directed Incruse Ellipta 62.5 mcg/actuation blister with device 1 inh inhalation DAILY 30 Days Qty: 30 11RF tadalafil 5 mg tablet 5 mg PO DAILY 90 Days Qty: 90 1RF fluticasone propionate 50 mcg/actuation spray,suspension 1 spray intranasal QAM (DME) CPAP Machine/Device Device See Rx Instructions .ROUTE Rx Instructions: As directed tadalafil 10 mg tablet 10 mg PO DAILY 90 Days Qty: 90 1RF
[2023-07-10 16:40] LABS: MANUAL DIFF FLAG NO
[2023-07-10 16:41] LABS: Basophils Absolute Auto 0.1 X10*3/uL (0.0-0.2); Basophils Percent Auto 0.5 % (0-2); Eosinophils Absolute Auto 0.5 X10*3/uL (0.0-0.4); Eosinophils Percent Auto 4.5 % (0-4); Hematocrit 41.9 % (42.0-52.0); Hemoglobin 13.9 g/dl (14.0-18.0); Imm Gran Abs Auto 0.09 X10*3/uL (0.00-0.03); Imm Gran Pct Auto 0.9 % (0.0-0.4); Lymphocytes Absolute Auto 2.2 X10*3/uL (1.2-4.9); Lymphocytes Percent Auto 21.3 % (20-40); Mean Corpuscular HGB Conc 33.2 g/dl (31.0-36.0); Mean Corpuscular Hemoglobin 29.5 pg (27.0-33.0); Neutrophils Absolute Auto 6.4 x10*3/uL (2.0-8.3); Neutrophils Percent Auto 62.8 % (45-73); Platelet Count 296 X10*3/uL (160-400); Red Blood Count 4.71 X10*6/uL (4.60-5.80); White Blood Count 10.2 X10*3/uL (4.8-10.8)
[2023-07-10 17:02] LABS: Alanine Aminotransferase 18 U/L (0-40); Albumin Level 3.9 g/dL (3.5-5.0); Alkaline Phosphatase 76 U/L (39-117); Anion Gap 11 (12-20); Aspartate Amino Transferase 22 U/L (5-37); Bilirubin Direct 0.1 mg/dL (0.0-0.5); Bilirubin Total 0.3 mg/dL (0.0-1.0); Blood Urea Nitrogen 14 mg/dL (9-16); Calcium 9.5 mg/dL (8.4-10.2); Carbon Dioxide 28 mmol/L (22-29); Chloride 106 mmol/L (96-108); Creatinine Clr Calc Pharmacy 147.2; Estimated Glomerular Filt Rate > 60; Glucose Random 88 mg/dL (60-115); Lipase 34 U/L (8-78); Potassium 4.5 mmol/L (3.3-5.1); Sodium 140 mmol/L (135-145); Total Protein 7.9 g/dL (6.5-8.0)
[2023-07-10 21:34] VITALS: BP 110/77; PULSE 73; RESP 17; TEMP 35.8; O2SAT 99
[2023-07-11 00:39] LABS: OBS Int Ctl Valid YES; OBS1 POSITIVE (NEGATIVE)
[2023-07-11 01:11] LABS: Appearance Urine Clear; Color Urine Yellow; Glucose Urine UA Negative (Negative); Leukocyte Esterase Urine Negative (Negative); Nitrite Urine Negative (Negative); Specific Gravity - Urine 1.025 (1.005-1.025); Urine Blood Negative (Negative); Urine Ketones Negative (Negative); Urine Protein Negative (Neg-Trace)
--- NOTE | 2023-07-11 01:17 | PC.NURSE ---
Multiple failed attempts at obtaining an IV line. made aware.
[2023-07-11 01:46] VITALS: BP 146/82; PULSE 63; RESP 18; O2SAT 97
[2023-07-11] MEDS: iohexoL 350 MG/ML 100 ML INFUS..BTL 85 ML IV (02:17)
[2023-07-11] MEDS: 0.9 % Sodium Chloride 1,000 ML 999 ML IVCONT (02:20)
[2023-07-11] MEDS: Morphine Sulfate 4 MG/ML CARTRIDGE IVPUSH (02:21)
[2023-07-11] MEDS: ondansetron HCL 4 MG/2 ML VIAL IVPUSH (02:21)
[2023-07-11] MEDS: levoFLOXacin 500 MG TABLET PO (03:08)
[2023-07-11] MEDS: metroNIDAZOLE 500 MG TABLET PO (03:08)
[2023-07-11] MEDS: oxyCODONE HCl Immed Release 5 MG TABLET PO (03:08)
--- NOTE | 2023-07-11 03:15 | PC.NURSE ---
18G u/s guided iv line infiltrated. IV line removed with no complications. MD notified. AB changed to PO. Pt medicated as ordered and tolerated well.
== END 2023-07-11 03:17 | disposition home or self-care (01) ==
PROVIDERS: Physician Assistant Medical; Emergency Provider Emergency Medicine; PCP Family Medicine
DX: K52.9 Noninfective gastroenteritis and colitis, unspecified (principal); R10.32 Left lower quadrant pain; Z79.899 Other long term (current) drug therapy; Z87.891 Personal history of nicotine dependence
CPT/HCPCS: 36415; 74177; 80048; 80076; 81003; 82272; 83690; 85025; 96361; 96374; 96375; 99284; J2270; J2405; Q9967

== ENCOUNTER 2023-07-25 12:53 | Outpatient (AMB) | payer OTHER, SELFPAY ==
[2023-07-25 13:18] VITALS: BP 149/71; RESP 77; BMI 48.3
--- NOTE | 2023-07-25 13:18 | MHC.OFFVIS ---
Intake Vital Signs 07/25/23 13:18 Height 5 ft 11 in Weight 346 lb BMI 48.3 BP 149/71 H Blood Pressure Location Rt brachial Position Sitting Respiration 77 H Intake Visit Reasons: colonoscopy screening, Hx diverticulitis Intake Note: This patient presents for a colonoscopy screening, history of diveticulitis. Patient c/o; reports rectal bleeding 07/10/23. Valve And Regulator Repairer Required: No Accompanied by: Spouse Allergies No Known Allergies Allergy (Verified 07/25/23 13:18) HPI colonoscopy screening, Hx diverticulitis HPI Details 52-year-old male referred for passage of bright blood per rectum. He said he had a bowel movement on June 16 and he saw bright blood per rectum on the toilet bowl. He went to the emergency room at that time. He was told to see me because of this He has not had need any further episodes since then. He also has a history of diverticular disease and had undergone emergency Hattie's procedure with Dr. Wilde in 2014. He eventually had his ostomy and a diverting loop ileostomy reversed. He had a colonoscopy in 2015 which was unremarkable except for diverticular disease. [facility] Medical History (Updated 07/25/23 @ 13:39 by Benson Nowak MD) Bleeding hemorrhoids [id number] syndrome SBO (small bowel obstruction) Abdominal pain, LLQ Gout Morbid obesity due to excess calories Obstructive sleep apnea Obesity Open wound anterior abdominal wall Incisional pain Incisional hernia Anxiety Asthma Incisional hernia SBO (small bowel obstruction) Surgical History Hx of carpal tunnel repair Status post Hattie's procedure H/O hernia repair Family History Mother Arthritis Father Arthritis Maternal Grandfather History of prostate cancer Maternal Grandmother History of breast cancer Social History Household Members: Significant Other, Family and Children Housing: Apartment Do you presently have visiting nurse or other home services: No Alcohol intake: never Comment: pt asleep Patient Tobacco Use Status: Former Tobacco user Quit Date: 20 years ago Second Hand Smoke Exposure: No Substance Use Type: Marijuana service: No Current occupational status: disabled 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 Review of Systems Const Denies chills and Denies fever(s) Card Denies chest pain, Denies dyspnea and Denies dyspnea on exertion Resp Denies cough, Denies dyspnea and Denies dyspnea on exertion GI Denies hematochezia and Denies change in bowel habits Denies hematuria and Denies difficulty urinating Musc Denies back pain and Denies limited range of motion Neuro Denies focal weakness and Denies convulsions Psych Denies depression and Denies mood swings Physical Exam Vital Signs: Last Vital Signs Resp 77 H 07/25/23 13:18 BP 149/71 H 07/25/23 13:18 BMI result Body Mass Index 48.3 Const Other: Morbidly obese General: comfortable and no acute distress Orientation/consciousness: patient oriented x3 Neck Neck: Yes no lymphadenopathy Resp Auscultation: clear to auscultation bilaterally Cardio Rhythm: regular rhythm GI Other: Rectal exam shows external hemorrhoids Palpation (GI): Soft to palpation, nontender and no guarding Neuro General: patient oriented x3 Office Procedures Anoscopy He was in jacque-knife position. The anoscope was gently inserted. A full examination of the anal canal was done. He had mixed internal and hemorrhoidal columns mostly on the left. This was moderate sized on the left side. There were no lesions. There was no bleeding. There was no fissure. There was no induration on digital exam. [id number] Assessment & Plan Assessment & Plan (1) Bleeding hemorrhoids: Code(s): K64.9 - Unspecified hemorrhoids Plan: He had a bright blood per rectum last 06/16/2023. He has had no episodes since then. Anoscopy shows prominent internal external hemorrhoids in the anal canal. This is likely the source of his bleeding. He had a colonoscopy in 2016 so I told him that he not due yet for a repeat screening. However, he does have repeated episodes of bleeding, I advised him to come back and we will consider doing his colonoscopy earlier. I also advised him to take Metamucil as a fiber supplement. (2) Morbid obesity due to excess calories: Code(s): E66.01 - Morbid (severe) obesity due to excess calories Plan: He has gained weight again and his BMI is up to 48. I told him that it is important for him to lose some weight as he is at significant risk for colon cancer and other cancers, with coronary artery disease and strokes. Coding Level of Care Code Est Pt Level 4 (59001) Diagnoses Bleeding hemorrhoids K64.9 Morbid obesity due to excess calories E66.01 CPT Codes Details - CPT: 98762-[id number] ([id number])
== END 2023-07-25 13:37 | disposition home or self-care (01) ==
PROVIDERS: PCP Family Medicine; Visit Provider Surgery
DX: K64.8 Other hemorrhoids (principal); E66.01 Morbid (severe) obesity due to excess calories; Z68.42 Body mass index [BMI] 45.0-49.9, adult
CPT/HCPCS: 46600; 99214

== ENCOUNTER → 2023-07-25 12:53 | Outpatient (BNVA) | payer OTHER, SELFPAY | PROVIDERS: PCP Family Medicine; Visit Provider Surgery | DX: K64.9 Unspecified hemorrhoids (principal); E66.01 Morbid (severe) obesity due to excess calories; Z68.42 Body mass index [BMI] 45.0-49.9, adult | CPT/HCPCS: 46600; 99212 ==

== ENCOUNTER 2023-08-13 11:51 | Outpatient (REF) | payer OTHER, SELFPAY ==
[2023-08-13 14:08] LABS: TSH reflex Free T4 6.27 uIU/mL (0.32-4.0)
[2023-08-13 14:47] LABS: Free T4 (Free Thyroxine) 0.86 ng/dL (0.71-1.85)
== END 2023-08-13 11:52 | disposition home or self-care (01) ==
LOC: HO.HHCL 11:51
PROVIDERS: Visit Provider Family Medicine
DX: E03.9 Hypothyroidism, unspecified (principal)
CPT/HCPCS: 36415; 84439; 84443

== ENCOUNTER 2023-08-20 13:43 | Emergency (ER) | payer OTHER, SELFPAY ==
--- NOTE | ~2023-08-20 | XR_ITS ---
EXAMINATION: XR CALCANEUS, LEFT CLINICAL INFORMATION: Heel pain COMPARISON: 03/30/2022 TECHNIQUE: AP view of the calcaneus FINDINGS: There is a questionable cystic area in the calcaneus which is better seen on the current series than the foot radiographs. This measures about 3 cm in diameter and has a sclerotic rim. No fractures are seen. XR/XR calcaneus LT min 2V IMPRESSION: Question of a cystic area in the calcaneus. If this is real, they are almost always benign. Differential diagnosis would include entities such as a unicameral bone cyst, intraosseous lipoma (usually located more anteriorly at the neck) or giant cell tumor. This could be further evaluated with an MRI.
--- NOTE | ~2023-08-20 | XR_ITS ---
EXAMINATION: LEFT ANKLE AND FOOT CLINICAL INFORMATION: Unable to bear weight COMPARISON: Left ankle and foot 03/30/2022 TECHNIQUE: 2 views left ankle, 3 views left foot FINDINGS: The ankle mortise appears stable. No ankle effusion is seen. No fractures or bony destructive lesions. Postsurgical changes again seen with screws in the heads of the second and third metatarsals. 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 A plantar calcaneal spur is unchanged. An enthesophyte is present at the insertion of the Achilles tendon. XR/XR ankle LT min 3V IMPRESSION: No evidence of an acute traumatic injury. Chronic unchanged findings as described above.
--- NOTE | ~2023-08-20 | XR_ITS ---
EXAMINATION: LEFT ANKLE AND FOOT CLINICAL INFORMATION: Unable to bear weight COMPARISON: Left ankle and foot 03/30/2022 TECHNIQUE: 2 views left ankle, 3 views left foot FINDINGS: The ankle mortise appears stable. No ankle effusion is seen. No fractures or bony destructive lesions. Postsurgical changes again seen with screws in the heads of the second and third metatarsals. 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 A plantar calcaneal spur is unchanged. An enthesophyte is present at the insertion of the Achilles tendon. XR/XR foot LT min 3V IMPRESSION: No evidence of an acute traumatic injury. Chronic unchanged findings as described above.
[2023-08-20 15:39] VITALS: BP 149/86; PULSE 73; RESP 16; TEMP 36.8; O2SAT 96; BMI 48.0
--- NOTE | 2023-08-20 17:30 | ED.LOWEXIN ---
HPI - Extremity Injury (Lower) General Chief Complaint: Extremity Injury, Lower Stated Complaint: L Heel Swelling Pain No Injury Time Seen by Provider: 08/20/23 17:26 Source: patient, RN notes reviewed and old records reviewed Mode of arrival: ambulatory History of Present Illness HPI Narrative: 52-year-old male with past medical history of gout, obesity, KOBY, anxiety, asthma, presenting to the ED complaining of acute on chronic left heel pain worsening over the past 8 days. Admits to history of plantar fasciitis was followed by a [facility]. States woke up with pain 8 days ago and is having difficulty bearing weight secondary to pain. Worsens with ROM. Denies new or recent injury/trauma or fall, numbness/tingling, pedal edema, fever, calf pain Related Data Home Medications Medication Instructions Recorded Confirmed albuterol sulfate 90 mcg/actuation 2 puff inhalation Q6H PRN 03/26/22 05/30/22 aerosol inhaler (ProAir HFA) Respiratory Distress docusate sodium 100 mg capsule 100 mg PO BID 03/26/22 05/30/22 (Colace) epinephrine 0.3 mg/0.3 mL 0.3 mg IM Q4H PRN Anaphylaxis 03/26/22 05/30/22 injection, auto-injector (EpiPen) escitalopram oxalate 10 mg tablet 10 mg PO DAILY 03/26/22 05/30/22 (Lexapro) fluticasone 500 mcg-salmeterol 50 1 inh inhalation BID 03/26/22 05/30/22 mcg/dose blistr powdr for inhalation (Wixela Inhub) hydrochlorothiazide 25 mg tablet 25 mg PO DAILY 03/26/22 05/30/22 ibuprofen 800 mg tablet 800 mg PO Q6H PRN Pain 03/26/22 05/30/22 loratadine 10 mg tablet (Claritin) 10 mg PO DAILY 03/26/22 05/30/22 montelukast 10 mg tablet 10 mg PO DAILY 03/26/22 05/30/22 (Singulair) omeprazole 20 mg capsule,delayed 20 mg PO DAILY@0630 03/26/22 05/30/22 release tramadol 50 mg tablet 50 mg PO BID PRN Pain, Moderate 03/26/22 05/30/22 cetirizine 10 mg tablet 10 mg PO DAILY 02/04/23 ipratropium 0.5 mg-albuterol 3 mg ml inhalation 02/04/23 (2.5 mg base)/3 mL nebulization soln ipratropium bromide 21 mcg (0.03 intranasal 02/04/23 %) nasal spray nebulizers 02/04/23 losartan 25 mg tablet 0 mg PO 03/19/23 sodium chloride 0.65 % nasal spray spray intranasal 03/19/23 aerosol (Saline Nasal) CPAP (CPAP Machine/Device) 03/21/23 fluticasone propionate 50 1 spray intranasal QAM 03/21/23 mcg/actuation nasal spray,suspension Previous Rx's Medication Instructions Recorded umeclidinium 62.5 mcg/actuation 1 inh inhalation DAILY 30 days #30 02/04/23 blister powder for inhalation ea (Incruse Ellipta) tadalafil 5 mg tablet 5 mg PO DAILY sexual activity 90 02/20/23 days #90 tabs allopurinol 100 mg tablet 200 mg (2 x 100 mg) PO DAILY #180 06/05/23 tabs tadalafil 10 mg tablet 10 mg PO DAILY sexual activity 90 07/09/23 days #90 tabs levofloxacin 500 mg tablet 500 mg PO DAILY #10 tabs 07/11/23 metronidazole 500 mg tablet 500 mg PO BID #20 tabs 07/11/23 oxycodone 5 mg tablet 5 mg PO BID PRN pain #7 tabs 07/11/23 acetaminophen 500 mg tablet 500 mg PO Q6H PRN fever or pain 08/20/23 (Tylenol Extra Strength) #14 tabs ketorolac 10 mg tablet 10 mg PO TID PRN pain 5 days #15 08/20/23 tabs Allergies Allergy/AdvReac Type Severity Reaction Status Date / Time No Known Allergies Allergy Verified 07/25/23 13:18 Review of Systems Review of Systems: Constitutional: No Fever, No Chills ENT/Mouth: No Ear Pain, No Nasal Congestion, No sore throat, No Rhinorrhea, No Swallowing Difficulty Cardiovascular: No Chest Pain, No SOB Respiratory: No Cough, No Sputum, No Wheezing Musculoskeletal: + joint pain, No Myalgias, + Joint Swelling Skin: No Skin Lesions, No rash Neuro: No Weakness, No Numbness, No Paresthesias Yes all other systems are reviewed and are negative Constitutional: Constitutional: Reports as per [facility] Past Medical History Attestation statement: The following information was validated with the patient. 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 SBO (small bowel obstruction) Abdominal pain, LLQ Gout Morbid obesity due to excess calories Obstructive sleep apnea Obesity Open wound anterior abdominal wall Incisional pain Incisional hernia Anxiety Asthma Incisional hernia SBO (small bowel obstruction) Surgical History Hx of carpal tunnel repair Status post Hattie's procedure H/O hernia repair Family History Family History Mother Arthritis Father Arthritis Maternal Grandfather History of prostate cancer Maternal Grandmother History of breast cancer Social History Social History Household Members: Significant Other, Family and Children Housing: Apartment Do you presently have visiting nurse or other home services: No Alcohol intake: never Comment: pt asleep Patient Tobacco Use Status: Former Tobacco user Quit Date: 20 years ago Second Hand Smoke Exposure: No Substance Use Type: Marijuana Advance Directives: No Advance Directives Information Provided: No service: No Current occupational status: disabled 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 Physical Exam Vital Signs: Vital Signs: Last Vital Signs Temp 98.5 F 08/20/23 18:19 Pulse 61 08/20/23 18:19 Resp 20 08/20/23 18:19 BP 108/52 L 08/20/23 18:19 Pulse Ox 94 08/20/23 18:19 O2 Del Method Room Air 08/20/23 18:19 BMI result Body Mass Index 48.0 Const: General: cooperative, healthy appearing and no acute distress Orientation/consciousness: patient oriented x3 Limitations: no limitations HEENT: Head: Yes normal to inspection and Yes atraumatic Ears: hearing grossly normal bilaterally General nose exam: Normal external nose present Face and sinus: Yes normal facial exam Eyes: General: appearance normal, both eyes and all related structures EOM: EOMs intact bilaterally Neck: Neck: Yes normal visual inspection and Yes no meningeal signs Resp: Effort & Inspection: normal respiratory effort and no respiratory distress Cardio: Rate: regular rate Skin: Rashes: no rashes Wounds: no wounds Neuro: General: patient oriented x3, tone normal and no meningeal signs Cranial nerves: Yes CN's II-XII intact bilaterally Gait exam (Neuro): Normal gait present Extrem: Other: Left foot with mild swelling > heel/medial aspect with tenderness to palpation. No plantar fascia tenderness. No appreciable deformity/erythema or warmth. Neurovascularly intact. Achilles tendon appears intact without tenderness. Negative Zuniga sign no pitting edema or calf tenderness. No crepitus Course Course Course Narrative: XR foot LT min 3V IMPRESSION: No evidence of an acute traumatic injury. Chronic unchanged findings as described above. XR ankle LT min 3V IMPRESSION: No evidence of an acute traumatic injury. Chronic unchanged findings as described above. -1900--ED care transferred to [facility] pending x-ray and anticipated discharge Results discussed with patient including worrisome signs and symptoms and strict return precautions, and when to return to the emergency department. They verbalized understanding and feel safe for discharge at this time. Medical Decision Making Medical Decision Making MDM Narrative: 52-year-old male with past medical history of gout, obesity, KOBY, anxiety, asthma, presenting to the ED complaining of acute on chronic left heel pain worsening over the past 8 days. On exam vital signs stable, NAD, nontoxic appearing with physical exam as noted above. Concern for fracture vs strain vs ?Plantar fasciitis. Low suspicion for a Achilles tendon injury/rupture or gastrocs injury. No evidence of infection/septic joint/arthritis or vascular compromise Plan: X-rays, pain control, Orthopedic follow-up Please refer to course for remaining clinical decision making, interpretation of labs/imaging results, and discussions with consultants and/or family members. Differential Diagnosis Differential Diagnoses: The differential diagnosis associated with the presentation includes As above Independent Interpretation I performed an independent interpretation of an: Plain X-Ray Radiology Impression Discussion of test interpretation with radiology: I have reviewed the radiologist's reading. External Record Review External record reviewed: Inpatient record, Office record, Outpatient record, Prior outpatient labs, Prior outpatient radiology, Primary care record and Outside ED record Tests considered The following testing was considered but not selected: As above Prescription Management I considered prescription management with: Pain Medication Discharge Plan Discharge Clinical Impression: Acute foot pain Patient Disposition: Home, Self-Care Instructions: Arthralgia (ED) Additional Instructions: Toradol as an anti-inflammatory / pain medication, take with food Lidoderm patches are numbing patches, apply to painful area In addition take Tylenol at home If symptoms persist or worsen, pain becomes unbearable, you developed weakness return to the ED You need to follow-up with orthopedics and podiatry Prescriptions: New ketorolac 10 mg tablet 10 mg PO TID PRN (Reason: pain) 5 Days Qty: 15 0RF acetaminophen [Tylenol Extra Strength] 500 mg tablet 500 mg PO Q6H PRN (Reason: fever or pain) Qty: 14 0RF No Action allopurinol 100 mg tablet 200 mg PO DAILY Qty: 180 0RF levofloxacin 500 mg tablet 500 mg PO DAILY Qty: 10 0RF metronidazole 500 mg tablet 500 mg PO BID Qty: 20 0RF oxycodone 5 mg tablet 5 mg PO BID PRN (Reason: pain) Qty: 7 0RF Rx Instructions: Partial Fill upon patient request. albuterol sulfate [ProAir HFA] 90 mcg/actuation HFA aerosol inhaler 2 puff inhalation Q6H PRN (Reason: Respiratory Distress) hydrochlorothiazide 25 mg tablet 25 mg PO DAILY docusate sodium [Colace] 100 mg capsule 100 mg PO BID loratadine [Claritin] 10 mg tablet 10 mg PO DAILY montelukast [Singulair] 10 mg tablet 10 mg PO DAILY escitalopram oxalate [Lexapro] 10 mg tablet 10 mg PO DAILY omeprazole 20 mg capsule,delayed release(DR/EC) 20 mg PO DAILY@0630 fluticasone propion-salmeterol [Wixela Inhub] 500-50 mcg/dose blister with device 1 inh inhalation BID epinephrine [EpiPen] 0.3 mg/0.3 mL auto-injector 0.3 mg IM Q4H PRN (Reason: Anaphylaxis) ibuprofen 800 mg tablet 800 mg PO Q6H PRN (Reason: Pain) Rx Instructions: administer with food tramadol 50 mg tablet 50 mg PO BID PRN (Reason: Pain, Moderate) losartan 25 mg tablet 0 mg PO Saline Nasal 0.65 % aerosol,spray intranasal ipratropium-albuterol 0.5 mg-3 mg(2.5 mg base)/3 mL solution for nebulization 3 ml inhalation ONCE Qty: 3 0RF ipratropium bromide 21 mcg (0.03 %) spray,non-aerosol intranasal cetirizine 10 mg tablet 10 mg PO DAILY ipratropium-albuterol 0.5 mg-3 mg(2.5 mg base)/3 mL solution for nebulization inhalation (DME) nebulizers [facility] See Rx Instructions .ROUTE Rx Instructions: As directed Incruse Ellipta 62.5 mcg/actuation blister with device 1 inh inhalation DAILY 30 Days Qty: 30 11RF tadalafil 5 mg tablet 5 mg PO DAILY 90 Days Qty: 90 1RF fluticasone propionate 50 mcg/actuation spray,suspension 1 spray intranasal QAM (DME) CPAP Machine/Device Device See Rx Instructions .ROUTE Rx Instructions: As directed tadalafil 10 mg tablet 10 mg PO DAILY 90 Days Qty: 90 1RF Ref[place]: [facility] [place]Provider Group] Patricia Berry MD [Primary Care Provider] - Gian Clement DPM [Physician] -
[2023-08-20 18:19] VITALS: BP 108/52; PULSE 61; RESP 20; TEMP 36.9; O2SAT 94
[2023-08-20] MEDS: Ketorolac Tromethamine 30 MG/ML VIAL IM (18:56)
== END 2023-08-20 21:06 | disposition home or self-care (01) ==
PROVIDERS: Emergency Provider Student in an Organized Health Care Education/Training Program; PCP Family Medicine
DX: M79.672 Pain in left foot (principal); M25.475 Effusion, left foot; Z87.891 Personal history of nicotine dependence; Z79.899 Other long term (current) drug therapy
CPT/HCPCS: 73610; 73630; 73650; 96372; 99283; 99284; J1885

== ENCOUNTER 2023-09-06 13:01 | Outpatient (AMB) | payer OTHER, SELFPAY ==
[2023-09-06 13:04] VITALS: PULSE 79; O2SAT 97; BMI 48.0
--- NOTE | 2023-09-06 13:04 | A.OFFVIS_ITS ---
Intake Vital Signs 09/06/23 13:04 Height 5 ft 11 in Weight 343 lb 14.738 oz BMI 48.0 Pulse 79 Pulse Source Pulse Oximeter Pulse Oximetry (%) 97 Oxygen Delivery Method Room Air Intake Visit Reasons: Shortness of breath Miter Cutter Required: No Allergies No Known Allergies Allergy (Verified 09/06/23 13:05) HPI HPI Comments History of Present Illness Details The patient is a 52-year-old gentleman with a lifelong history of asthma although it was relatively controlled. The patient states that he was in his usual state health until August 2022 when he developed COVID 19 for the 2nd time. It was a relatively benign illness but afterwards he noted some difficulties with breathing. His asthma has been active and uncontrolled since then. He has required multiple courses the prednisone. He has been using his Wixela inhaler. He did try Trelegy in the past but that was not helpful actually made things worse. Therefore his continue with Wixela for now. The patient recently was seen by his primary care doctor was given additional prednisone. The patient has not had any formal allergy testing. He did have CT scan of the abdomen back in September which I personally reviewed and the lung with does appear to be clear without any evidence of any ground-glass opacities or scarring. Although he has never had chest x-ray this year. Therefore will going to request breathing studies and chest x-rays in addition to blood work and allergy testing. In the meantime will try to optimize the his respiratory therapy by adding budesonide nebs once a day and also adding anti muscarinic antagonist and also add a macrolide therapy 3 times a week. I am hopeful that he starts feeling better soon otherwise if he is not he can always call the office for an earlier assessment. Will follow-up after his PFTs. 03/21/2023 the patient is here for a pulm onary follow-up visit. She is feeling a lot better. Although he still having significant wheezing. The patient did not tolerate the Incruse therefore he stopped it. He continues on the Advair. The patient also has been using the nebulized therapy. Was also taking the antibiotic macrolide 3 times a week. We did review his blood work. His allergy testing is very significantly abnormal. His IgE levels up to 680. The patient has a normal eosinophilic level. The patient does benefit from starting biologic therapy with Xolair based on his ongoing uncontrolled asthma and also significant allergic chronic rhinitis. The patient is agreeable to starting. Will go ahead and start the prior approval process. The meantime he has been using the CPAP. CPAP therapy continues to be affecting beneficial. He did bring it in. He has been having difficulties with the nasal mask. 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 The patient will benefit from a AirTouch foam mask. I did have medium F20 available for him to trial. He will try it out and consider is a medium or large size. He will let me know. He currently gets supplies through [employer]. I also adjusted his machine from CPAP 11 to an APAP 7-13. Hopefully he can tolerate the APAP pressures more. 09/06/2023 the patient is here for a pulmonary follow-up visit. The patient still having significant asthma. Recently was exposed to since pet bird that he feels that his bothering his asthma. He also has other pets in the house that also give him significant allergies. His IgE level significantly elevated. The patient does qualify for Xolair based on her as allergic severe asthma. However, the patient has not had his PFTs. He had to reschedule. He understands that in order to start biologic therapy he will talk to have his PFTs. In the meantime he is going to need prednisone because of significant wheezing. The patient also has been coughing some. Productive in nature. Moderate severity. He has been using the CPAP. The CPAP settings have been much more tolerable for him. He does use it every night for more than 4 hours a night. Therapy continues to be affecting beneficial. Therefore, he will continue using CPAP will go ahead and continue his respiratory medicines although he is having hard time with the powdered inhalers. Therefore I will switch him over to Symbicort HFA. Will follow-up in 4-6 months. I am hopeful that he can have his PFTs in order for him to start Xolair. 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 SBO (small bowel obstruction) Abdominal pain, LLQ Gout Morbid obesity due to excess calories Obstructive sleep apnea Obesity Open wound anterior abdominal wall Incisional pain Incisional hernia Anxiety Asthma Incisional hernia SBO (small bowel obstruction) Surgical History Hx of carpal tunnel repair Status post Hattie's procedure H/O hernia repair Family History Mother Arthritis Father Arthritis Maternal Grandfather History of prostate cancer Maternal Grandmother History of breast cancer Social History Household Members: Significant Other, Family and Children Housing: Apartment Do you presently have visiting nurse or other home services: No Alcohol intake: never Comment: pt asleep Patient Tobacco Use Status: Former Tobacco user Quit Date: 20 years ago Second Hand Smoke Exposure: No Substance Use Type: Marijuana service: No Current occupational status: disabled 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 Review of Systems Const Denies chills and Denies fever(s) Eyes Denies change in vision ENT Denies change in voice Card Denies chest pain, Denies dyspnea and Reports dyspnea on exertion Resp Reports chest congestion, Reports cough, Denies dyspnea, Reports dyspnea on exertion and Reports wheezing GI Denies hematochezia and Denies change in bowel habits Musc Denies back pain and Denies limited range of motion Neuro Denies focal weakness and Denies convulsions Psych Denies depression and Denies mood swings Jose/Lymph Denies lymphadenopathy Aller/Immun Reports wheezing Physical Exam Vital Signs: Last Vital Signs Pulse 79 09/06/23 13:04 Pulse Ox 97 09/06/23 13:04 Oxygen Delivery Method Room Air 09/06/23 13:04 BMI result Body Mass Index 48.0 Const General: comfortable HEENT Head: Yes normal to inspection Eyes General: appearance normal, both eyes and all related structures Neck Neck: Yes supple Chest Chest palpation & inspection: normal inspection of the chest Resp Effort & Inspection: normal respiratory effort Auscultation: no rhonchi, wheezes and diminished lung sounds Cardio Rate: regular rate Rhythm: regular rhythm Heart sounds: S1 normal heart sound present and S2 normal heart sound present GI Palpation (GI): Soft to palpation General: Yes no CVA tenderness Back/Spine/Pelvis Back: no CVA tenderness Skin General skin exam: no rashes or lesions noted Extrem General: No clubbing, No cyanosis and Yes edema Assessment & Plan Assessment & Plan (1) Asthma: Code(s): J45.909 - Unspecified asthma, uncomplicated Qualifiers: Asthma complication type: with acute exacerbation Asthma persistence: persistent Asthma severity: severe Qualified Code(s): J45.51 - Severe persistent asthma with (acute) exacerbation (2) Obstructive sleep apnea: Code(s): G47.33 - Obstructive sleep apnea (adult) (pediatric) (3) Bronchitis: Code(s): J40 - Bronchitis, not specified as acute or chronic Plan stop Wixela, does not tolerate the powder start Symbicort Start Prednisone taper Start Azithromycin stop budesonide Neb start Neti bottle continue duoneb 1-2 times aday continue CPAP: Adjusted to APAP 7-13 with Med Foam face mask: airtouch start Xolair (needs PFTs) PFTs continue CPAP F/U 4-6 months Orders: Orders Complete Blood Count Auto Diff 09/06/23 J45.909 - Unspecified asthma, uncomplicated Hypersensitive Pneumonitis Prf 09/06/23 J45.909 - Unspecified asthma, uncomplicated, R91.8 - Other nonspecific abnormal finding of lung field Erythrocyte Sedimentation Rate 09/06/23 J45.909 - Unspecified asthma, uncomplicated PFT pulmonary function test 09/06/23 J45.909 - Unspecified asthma, uncomplicated Immunoglobulin E 09/06/23 J45.909 - Unspecified asthma, uncomplicated Medications: New budesonide-formoterol 160-4.5 mcg/actuation (Symbicort) 2 puffs inhalation BID 30 days 10.2 grams 11RF J44.89 - Other specified chronic obstructive pulmonary disease Coding Level of Care Code Est Pt Level 4 (18104) Diagnoses Severe persistent asthma with acute exacerbation J45.51 Asthma complication type: with acute exacerbation Asthma persistence: persistent Asthma severity: severe Obstructive sleep apnea G47.33 Bronchitis J40 Time Spent (min) 17
== END 2023-09-06 13:40 | disposition home or self-care (01) ==
PROVIDERS: PCP Family Medicine; Visit Provider Hospitalist
DX: J45.51 Severe persistent asthma with (acute) exacerbation (principal); G47.33 Obstructive sleep apnea (adult) (pediatric); J40 Bronchitis, not specified as acute or chronic
CPT/HCPCS: 99214

== ENCOUNTER 2023-09-06 13:01 | Outpatient (REF) | payer OTHER, SELFPAY ==
[2023-09-06 13:39] LABS: MANUAL DIFF FLAG NO
[2023-09-06 15:40] LABS: Basophils Percent Auto 0.2 % (0-2); Eosinophils Absolute Auto 0.1 X10*3/uL (0.0-0.4); Eosinophils Percent Auto 1.1 % (0-4); Hematocrit 43.7 % (42.0-52.0); Hemoglobin 14.3 g/dl (14.0-18.0); Imm Gran Abs Auto 0.12 X10*3/uL (0.00-0.03); Lymphocytes Percent Auto 24.5 % (20-40); Mean Corpuscular HGB Conc 32.7 g/dl (31.0-36.0); Mean Corpuscular Hemoglobin 28.7 pg (27.0-33.0); Mean Corpuscular Volume 87.8 fL (80.0-98.0); Monocytes Absolute Auto 1.2 X10*3/uL (0.1-1.2); Monocytes Percent Auto 9.9 % (2-11); Neutrophils Absolute Auto 7.8 x10*3/uL (2.0-8.3); Neutrophils Percent Auto 63.3 % (45-73); Platelet Count 324 X10*3/uL (160-400); Red Blood Count 4.98 X10*6/uL (4.60-5.80); Red Cell Distribution Width 13.8 % (11.0-16.0); White Blood Count 12.4 X10*3/uL (4.8-10.8)
[2023-09-06 16:20] LABS: Erythrocyte Sedimentation Rate 53 MM/HR (0-15)
[2023-09-09 21:44] LABS: Immunoglobulin E 701 kU/L (<OR=114)
[2023-09-13 13:03] LABS: Asperg fumigatus Precip Abs NEGATIVE (NEGATIVE); Micropoly faeni Abs NEGATIVE (NEGATIVE); Pigeon serum Abs NEGATIVE (NEGATIVE); Saccharo pora viridis Abs NEGATIVE (NEGATIVE); Thermo candidus Abs NEGATIVE (NEGATIVE); Thermoa vulgaris #1 NEGATIVE (NEGATIVE)
== END 2023-09-06 13:02 | disposition home or self-care (01) ==
LOC: HO.LAB 13:01
PROVIDERS: PCP Family Medicine; Visit Provider Hospitalist
DX: J40 Bronchitis, not specified as acute or chronic (principal); J44.89 Other specified chronic obstructive pulmonary disease; J45.51 Severe persistent asthma with (acute) exacerbation; R91.8 Other nonspecific abnormal finding of lung field; T78.40XA Allergy, unspecified, initial encounter; G47.33 Obstructive sleep apnea (adult) (pediatric); Z99.89 Dependence on other enabling machines and devices; Z86.16 Personal history of COVID-19
CPT/HCPCS: 36415; 82785; 85025; 85652; 86331; 86606; 86609; 99212

== ENCOUNTER 2023-11-27 12:06 | Outpatient (REF) | payer OTHER, SELFPAY ==
[2023-11-27 14:10] LABS: Alanine Aminotransferase 23 U/L (0-40); Albumin Level 3.9 g/dL (3.5-5.0); Alkaline Phosphatase 85 U/L (39-117); Anion Gap 12 (12-20); Aspartate Amino Transferase 23 U/L (5-37); Bilirubin Total 0.3 mg/dL (0.0-1.0); Blood Urea Nitrogen 14 mg/dL (9-16); Calcium 9.7 mg/dL (8.4-10.2); Carbon Dioxide 27 mmol/L (22-29); Chloride 104 mmol/L (96-108); Cholesterol 219 mg/dL (<200); Estimated Glomerular Filt Rate > 60; Free T4 (Free Thyroxine) 0.83 ng/dL (0.71-1.85); Glucose Random 115 mg/dL (60-115); HDL Cholesterol 64 mg/dL (>40); LDL Cholesterol Calculated 135 mg/dL (<100); Potassium 3.3 mmol/L (3.3-5.1); Sodium 140 mmol/L (135-145); TSH reflex Free T4 2.74 uIU/mL (0.32-4.0); Thyroid Stimulating Hormone 2.74 uIU/mL (0.32-4.0); Triglycerides 102 mg/dL (<150); Uric Acid 8.4 mg/dL (3.4-7.0)
[2023-11-27 15:06] LABS: Reflex LDLD? No
== END 2023-11-27 12:07 | disposition home or self-care (01) ==
LOC: HO.HHCL 12:06
PROVIDERS: Visit Provider Family Medicine
DX: E03.9 Hypothyroidism, unspecified (principal); E78.5 Hyperlipidemia, unspecified; M10.9 Gout, unspecified; I10 Essential (primary) hypertension
CPT/HCPCS: 36415; 80053; 80061; 84439; 84443; 84550

== ENCOUNTER 2024-02-19 15:49 | Outpatient (REF) | payer OTHER, SELFPAY ==
[2024-02-20 22:38] LABS: Immunoglobulin E 516 kU/L (<OR=114)
[2024-02-24 12:39] LABS: Testosterone, Free 28.8 pg/mL (35.0-155.0); Testosterone, Total 197 ng/dL (250-1100)
== END 2024-02-19 15:50 | disposition home or self-care (01) ==
LOC: HO.LAB 15:49
PROVIDERS: Hospitalist; Visit Provider Urology
DX: J45.909 Unspecified asthma, uncomplicated (principal); R68.82 Decreased libido
CPT/HCPCS: 36415; 82785; 84402; 84403

== ENCOUNTER 2024-04-01 15:51 | Outpatient (AMB) | payer OTHER, SELFPAY ==
--- NOTE | 2024-04-01 15:59 | MHC.OFFVIS ---
Intake Visit Reasons: 6M Follow Up-Testosterone (set) Intake Note: Patient is present for Telephone Testosterone results Urology Med: Tadalafil Allergies No Known Allergies Allergy (Verified 04/01/24 16:01) Medication List - Last Reconciled 04/01/24 by Pasquale Shannon MD acetaminophen (Tylenol Extra Strength) 500 mg PO Q6H PRN albuterol sulfate 90 mcg/actuation (ProAir HFA) 2 puffs inhalation Q6H PRN allopurinol 200 mg (2 x 100 mg) PO DAILY azithromycin 250 mg PO 3XW 28 days budesonide-formoterol 160-4.5 mcg/actuation (Symbicort) 2 puffs inhalation BID 30 days cetirizine 10 mg PO DAILY CPAP (CPAP Machine/Device) As directed docusate sodium (Colace) 100 mg PO BID epinephrine (EpiPen) 0.3 mg IM Q4H PRN escitalopram oxalate (Lexapro) 10 mg PO DAILY fluticasone propion-salmeterol 500-50 mcg/dose (Wixela Inhub) 1 inh inhalation BID fluticasone propionate 50 mcg/actuation 1 spray intranasal QAM hydrochlorothiazide 25 mg PO DAILY ibuprofen 800 mg PO Q6H PRN ipratropium bromide intranasal ipratropium-albuterol 0.5 mg-3 mg(2.5 mg base)/3 mL mL inhalation ipratropium-albuterol 0.5 mg-3 mg(2.5 mg base)/3 mL 3 mL inhalation BID 30 days ketorolac 10 mg PO TID PRN 5 days levofloxacin 500 mg PO DAILY loratadine (Claritin) 10 mg PO DAILY losartan 0 mg PO metronidazole 500 mg PO BID montelukast (Singulair) 10 mg PO DAILY nebulizers As directed omeprazole 20 mg PO DAILY@0630 oxycodone 5 mg PO BID PRN prednisone PO daily; Take 2 tabs daily x 5 days, then 1 tablet daily x 5 days 10 days sodium chloride 0.65% (Saline Nasal) sprays intranasal tadalafil 5 mg PO DAILY 90 days tadalafil 10 mg PO DAILY 90 days testosterone 2 pumps topical DAILY 30 days tramadol 50 mg PO BID PRN umeclidinium 62.5 mcg/actuation (Incruse Ellipta) 1 inh inhalation DAILY 30 days HPI Comments Details: Brady is a pleasant male. He is a patient of . He is seen for the following urologic conditions - hypogonadism Telemedicine Evaluation 15 min Consultation [employer] Video attempted Persistently low testosterone Recommend testosterone replacement Initial trial of testosterone gel Three-month follow-up labs office Decreased libido/hypogonadism Progressive Initial lab work shows borderline T with elevated FSH suggestive of depressed testicular response Labs - 03/03 T250 FT 32, FSH 16, LH 7.7, 06/03 275 FT 32, 03/04 T 197 Associated conditions include obesity - dyslipidemia cholesterol 232 PFSH Medical History Bleeding hemorrhoids 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 SBO (small bowel obstruction) Abdominal pain, LLQ Gout Morbid obesity due to excess calories Obstructive sleep apnea Obesity Open wound anterior abdominal wall Incisional pain Incisional hernia Anxiety Asthma Incisional hernia SBO (small bowel obstruction) Surgical History Hx of carpal tunnel repair Status post Hattie's procedure H/O hernia repair Family History Mother Arthritis Father Arthritis Maternal Grandfather History of prostate cancer Maternal Grandmother History of breast cancer Social History Household Members: Significant Other, Family and Children Housing: Apartment Do you presently have visiting nurse or other home services: No Alcohol intake: never Comment: pt asleep Patient Tobacco Use Status: Former Tobacco user Second Hand Smoke Exposure: No Substance Use Type: Marijuana service: No Current occupational status: disabled 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 Review of Systems Const All systems reviewed & are unremarkable except as noted in HPI and below Reports no additional complaints Resp Reports no additional complaints GI Reports no additional complaints Reports as per HPI Musc Reports no additional complaints Physical Exam Telemedicine evaluation Appropriate responses Regular breathing rate and rhythm HEENT Head: Yes normal to inspection Ears: hearing grossly normal bilaterally Eyes General: appearance normal, both eyes and all related structures Neck Neck: Yes normal visual inspection Chest Chest palpation & inspection: normal inspection of the chest Resp Effort & Inspection: normal respiratory effort and able to speak in complete sentences Telehealth Telehealth Telehealth Platform: [employer] Location of provider rendering services: practice address (home address) Location of patient: address on file Patient Identification confirmed using: Name, : Yes Telehealth method: video Patient verbally consented to treatment: Yes Patient verbally consented to billing insurance company: Yes Patient informed of any privacy concerns related to visit: Yes Minutes spent on Phone/Video with Pt.: 15 Assessment & Plan Assessment & Plan (1) Low libido: Code(s): R68.82 - Decreased libido Category: Medical (2) Fatigue: Code(s): R53.83 - Other fatigue Category: Medical Plan Three-month follow-up labs office Orders: Orders Testosterone, Free/Total 3 Months R68.82 - Decreased libido Medications: New testosterone apply 2 pumps over max area - alternate shoulders on alternate days 2 pumps topical DAILY 30 days 75 grams 3RF R68.82 - Decreased libido, R79.89 - Other specified abnormal findings of blood chemistry Patient Instructions: Imaging studies, laboratory and physical exam results were discussed and reviewed in detail. No major barriers to patient understanding were identified. An opportunity to ask questions regarding the treatment plan was provided. All questions were answered. The patient expressed understanding and agreement with the above treatment plan. The patient is aware they should contact our office by phone for worsening of their current condition or the appearance of new urologic symptoms. Compliance is encouraged with any medications and followup testing that is ordered. It is a privilege to participate in the urologic care of your patient. If you have any questions or concerns regarding treatment for the above conditions, or other urologic issues, please do not hesitate to contact me. The office telephone contact is [phone]. This note is constructed using voice recognition software. While every effort has been made to ensure accuracy corporate travel consultant errors may have been included. Yours sincerely, Dr Pasquale Shannon MD, [facility] - Urology Providers of Expert, Compassionate Care for the Genitourinary System Coding Level of Care Code Tele Est Pt Level 4 (22719) Diagnoses Low libido R68.82 Fatigue R53.83
== END 2024-04-01 16:30 | disposition home or self-care (01) ==
LOC: HO.HUSH 15:51
PROVIDERS: PCP Family Medicine; Visit Provider Urology
DX: R68.82 Decreased libido (principal); R53.83 Other fatigue
CPT/HCPCS: 99214

== ENCOUNTER → 2024-04-01 15:51 | Outpatient (BNVA) | payer OTHER, SELFPAY | PROVIDERS: PCP Family Medicine; Visit Provider Urology ==

== ENCOUNTER 2024-04-25 13:51 | Emergency (ER) | payer OTHER, SELFPAY ==
[2024-04-25 13:58] VITALS: BP 127/85; PULSE 90; O2SAT 98
--- NOTE | 2024-04-25 14:06 | ECG_ITS ---
Test Reason : Irregular HR Blood Pressure : / mmHG Vent. Rate : 073 BPM Atrial Rate : 073 BPM P-R Int : 176 ms QRS Dur : 090 ms QT Int : 406 ms P-R-T Axes : -04 -03 -06 degrees QTc Int : 447 ms Normal sinus rhythm Normal ECG When compared with ECG of 29-MAY-2023 20:21, No significant change was found Referred By: Generic ED Physician Electronically Signed By:TEE WING
[2024-04-25 14:08] VITALS: BP 112/61; PULSE 67; RESP 16; TEMP 36.9; O2SAT 95; BMI 49.5
--- NOTE | 2024-04-25 14:12 | ED_ITS ---
HPI - General Adult General Chief complaint: General Medical Stated complaint: IRREGULAR HR Time Seen by Provider: 04/25/24 14:12 History of Present Illness ED Provider: Amelia RUSSO narrative: The patient is a 53-year-old male who had a left total knee replacement surgery on April 22. He says he was discharged with antibiotics, hydromorphone for pain, and aspirin daily. He has a wound VAC. Today a visiting nurse came to see him and was concerned that he had an irregular heart rate and called 911. The patient was not having any chest discomfort or shortness of breath or any other cardiac symptoms. Related Data Home Medications ?Medication ?Instructions ?Recorded ?Confirmed albuterol sulfate 90 mcg/actuation 2 puff inhalation Q6H PRN 03/26/22 04/01/24 aerosol inhaler (ProAir HFA) Respiratory Distress docusate sodium 100 mg capsule 100 mg PO BID 03/26/22 04/01/24 (Colace) epinephrine 0.3 mg/0.3 mL 0.3 mg IM Q4H PRN Anaphylaxis 03/26/22 04/01/24 injection, auto-injector (EpiPen) escitalopram oxalate 10 mg tablet 10 mg PO DAILY 03/26/22 04/01/24 (Lexapro) fluticasone 500 mcg-salmeterol 50 1 inh inhalation BID 03/26/22 04/01/24 mcg/dose blistr powdr for inhalation (Wixela Inhub) hydrochlorothiazide 25 mg tablet 25 mg PO DAILY 03/26/22 04/01/24 ibuprofen 800 mg tablet 800 mg PO Q6H PRN Pain 03/26/22 04/01/24 loratadine 10 mg tablet (Claritin) 10 mg PO DAILY 03/26/22 04/01/24 montelukast 10 mg tablet 10 mg PO DAILY 03/26/22 04/01/24 (Singulair) omeprazole 20 mg capsule,delayed 20 mg PO DAILY@0630 03/26/22 04/01/24 release tramadol 50 mg tablet 50 mg PO BID PRN Pain, Moderate 03/26/22 04/01/24 cetirizine 10 mg tablet 10 mg PO DAILY 02/04/23 04/01/24 ipratropium 0.5 mg-albuterol 3 mg ml inhalation 02/04/23 04/01/24 (2.5 mg base)/3 mL nebulization soln ipratropium bromide 21 mcg (0.03 intranasal 02/04/23 04/01/24 %) nasal spray nebulizers 02/04/23 04/01/24 losartan 25 mg tablet 0 mg PO 03/19/23 04/01/24 sodium chloride 0.65 % nasal spray spray intranasal 03/19/23 04/01/24 aerosol (Saline Nasal) CPAP (CPAP Machine/Device) 03/21/23 04/01/24 fluticasone propionate 50 1 spray intranasal QAM 03/21/23 04/01/24 mcg/actuation nasal spray,suspension Previous Rx's ?Medication ?Instructions ?Recorded tadalafil 5 mg tablet 5 mg PO DAILY sexual activity 90 02/20/23 days #90 tabs allopurinol 100 mg tablet 200 mg (2 x 100 mg) PO DAILY #180 06/05/23 tabs levofloxacin 500 mg tablet 500 mg PO DAILY #10 tabs 07/11/23 metronidazole 500 mg tablet 500 mg PO BID #20 tabs 07/11/23 oxycodone 5 mg tablet 5 mg PO BID PRN pain #7 tabs 07/11/23 acetaminophen 500 mg tablet 500 mg PO Q6H PRN fever or pain 08/20/23 (Tylenol Extra Strength) #14 tabs ketorolac 10 mg tablet 10 mg PO TID PRN pain 5 days #15 08/20/23 tabs budesonide-formoterol HFA 160 2 puff inhalation BID 30 days 09/06/23 mcg-4.5 mcg/actuation aerosol #10.2 grams inhaler (Symbicort) ipratropium 0.5 mg-albuterol 3 mg 3 ml inhalation BID 30 days #180 mL 09/06/23 (2.5 mg base)/3 mL nebulization soln prednisone 20 mg tablet See Rx Instructions PO DAILY 10 09/06/23 days #15 tabs tadalafil 10 mg tablet 10 mg PO DAILY sexual activity 90 11/29/23 days #90 tabs testosterone 2 pump topical DAILY 30 days #75 04/01/24 grams azithromycin 250 mg tablet 250 mg PO 3XW 28 days #12 tabs 04/07/24 umeclidinium 62.5 mcg/actuation 1 inh inhalation DAILY 30 days #30 04/07/24 blister powder for inhalation ea (Incruse Ellipta) Allergies Allergy/AdvReac Type Severity Reaction Status Date / Time No Known Allergies Allergy Verified 04/25/24 14:10 [facility] Past Medical History Medical History Bleeding hemorrhoids 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 SBO (small bowel obstruction) Abdominal pain, LLQ Gout Morbid obesity due to excess calories Obstructive sleep apnea Obesity Open wound anterior abdominal wall Incisional pain Incisional hernia Anxiety Asthma Incisional hernia SBO (small bowel obstruction) Surgical History Hx of carpal tunnel repair Status post Hattie's procedure H/O hernia repair Family History Family History Mother Arthritis Father Arthritis Maternal Grandfather History of prostate cancer Maternal Grandmother History of breast cancer Social History Social History Household Members: Significant Other, Family and Children Housing: Apartment Do you presently have visiting nurse or other home services: No Alcohol intake: never Comment: pt asleep Patient Tobacco Use Status: Former Tobacco user Second Hand Smoke Exposure: No Substance Use Type: Marijuana Advance Directives: No Advance Directives Information Provided: No service: No Current occupational status: disabled 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 He does not appear in acute distress. HENMT Other: Face is symmetrical. Mucous membranes moist. Eyes Other: Pupils are round equal, conjunctivae clear, extraocular movements intact Neck Other: No neck swelling Resp Effort & Inspection: normal respiratory effort Auscultation: clear to auscultation bilaterally Cardio Rate: regular rate Rhythm: regular rhythm Heart sounds: S1 normal heart sound present and S2 normal heart sound present GI Other: Abdomen is soft and nontender Skin Other: The patient has a brace on the left leg that obscures a lot of his skin. He also has a surgical dressing. The skin elsewhere on the body is normal. The skin of the left foot is normal. Neuro Other: The patient is awake and alert with a normal mental status. Cranial nerves are grossly intact. He moves his arm normally. He moves his right leg normally. He has normal sensation in the left leg. The left leg function can not really be tested because of the knee brace and surgical dressings. He can wiggle the toes normally. Extrem Other: The patient's left leg has a surgical dressing in a large immobilizing appliance. He also has what looks like a wound VAC in place. He has good pulses in both feet. Medical Decision Making Medical Decision Making MDM Narrative: The patient is a 53-year-old male who is 3 days postop from a left knee replacement. Apparently a visiting nurse was concerned that he might have atrial fibrillation today and he was brought to the hospital. Here he is in normal sinus rhythm with a normal EKG. He does not have any symptoms of atrial fibrillation or any other cardiac or unusual symptoms at all. His EKG is normal. I do not see an indication for additional investigations based on the history of his presentation today. I think he may return home. Independent Interpretation I performed an independent interpretation of an: EKG Interpretation: EKG at 14:08 shows normal sinus rhythm at 73 beats per minute. It is a normal EKG. Discharge Plan Discharge Clinical Impression: Palpitations Patient Disposition: Home, Self-Care Additional Instructions: Your EKG and your vital signs are all reassuring. There is no sign of an irregular heart rate. Please continue your regular medications. Please follow up with your regular doctors as scheduled. Return to the emergency room if you feel significantly worse. Prescriptions: No Action allopurinol 100 mg tablet 200 mg PO DAILY Qty: 180 0RF prednisone 20 mg tablet See Rx Instructions PO DAILY 10 Days Qty: 15 0RF Rx Instructions: PO daily; Take 2 tabs daily x 5 days, then 1 tablet daily x 5 days ipratropium-albuterol 0.5 mg-3 mg(2.5 mg base)/3 mL solution for nebulization 3 ml inhalation BID 30 Days Qty: 180 11RF tadalafil 10 mg tablet 10 mg PO DAILY 90 Days Qty: 90 0RF azithromycin 250 mg tablet 250 mg PO 3XW 28 Days Qty: 12 0RF Rx Instructions: Take 1 tablet on Saturday/Saturday/Saturday Incru Ellipta 62.5 mcg/actuation blister with device 1 inh inhalation DAILY 30 Days Qty: 30 11RF levofloxacin 500 mg tablet 500 mg PO DAILY Qty: 10 0RF metronidazole 500 mg tablet 500 mg PO BID Qty: 20 0RF oxycodone 5 mg tablet 5 mg PO BID PRN (Reason: pain) Qty: 7 0RF Rx Instructions: Partial Fill upon patient request. ketorolac 10 mg tablet 10 mg PO TID PRN (Reason: pain) 5 Days Qty: 15 0RF acetaminophen [Tylenol Extra Strength] 500 mg tablet 500 mg PO Q6H PRN (Reason: fever or pain) Qty: 14 0RF albuterol sulfate [ProAir HFA] 90 mcg/actuation HFA aerosol inhaler 2 puff inhalation Q6H PRN (Reason: Respiratory Distress) hydrochlorothiazide 25 mg tablet 25 mg PO DAILY docusate sodium [Colace] 100 mg capsule 100 mg PO BID loratadine [Claritin] 10 mg tablet 10 mg PO DAILY montelukast [Singulair] 10 mg tablet 10 mg PO DAILY escitalopram oxalate [Lexapro] 10 mg tablet 10 mg PO DAILY omeprazole 20 mg capsule,delayed release(DR/EC) 20 mg PO DAILY@0630 fluticasone propion-salmeterol [Wixela Inhub] 500-50 mcg/dose blister with device 1 inh inhalation BID epinephrine [EpiPen] 0.3 mg/0.3 mL auto-injector 0.3 mg IM Q4H PRN (Reason: Anaphylaxis) ibuprofen 800 mg tablet 800 mg PO Q6H PRN (Reason: Pain) Rx Instructions: administer with food tramadol 50 mg tablet 50 mg PO BID PRN (Reason: Pain, Moderate) losartan 25 mg tablet 0 mg PO Saline Nasal 0.65 % aerosol,spray intranasal budesonide-formoterol [Symbicort] 160-4.5 mcg/actuation HFA aerosol inhaler 2 puff inhalation BID 30 Days Qty: 10.2 11RF ipratropium-albuterol 0.5 mg-3 mg(2.5 mg base)/3 mL solution for nebulization 3 ml inhalation ONCE Qty: 3 0RF ipratropium bromide 21 mcg (0.03 %) spray,non-aerosol intranasal cetirizine 10 mg tablet 10 mg PO DAILY ipratropium-albuterol 0.5 mg-3 mg(2.5 mg base)/3 mL solution for nebulization inhalation (DME) nebulizers [facility] See Rx Instructions .Route Rx Instructions: As directed tadalafil 5 mg tablet 5 mg PO DAILY 90 Days Qty: 90 1RF fluticasone propionate 50 mcg/actuation spray,suspension 1 spray intranasal QAM (DME) CPAP Machine/Device Device See Rx Instructions .Route Rx Instructions: As directed testosterone 20.25 mg/1.25 gram (1.62 %) gel in metered-dose pump 2 pump topical DAILY 30 Days Qty: 75 3RF Rx Instructions: apply 2 pumps over max area - alternate shoulders on alternate days Interventions: ED Discharge Assessment Last Done: 04/25/24 14:49 Discharge Date/Time: 04/25/24 14:50 Print Language: Filipino
[2024-04-25 14:49] VITALS: BP 112/61; PULSE 67; RESP 16; TEMP 36.9; O2SAT 95
== END 2024-04-25 14:50 | disposition home or self-care (01) ==
PROVIDERS: Emergency Provider Emergency Medicine; PCP Family Medicine
DX: R00.2 Palpitations (principal)
CPT/HCPCS: 93005; 99282; 99283

== ENCOUNTER 2024-06-19 13:46 | Outpatient (REF) | payer OTHER, SELFPAY ==
[2024-06-19 15:30] LABS: Alanine Aminotransferase 41 U/L (0-40); Albumin Level 4.3 g/dL (3.5-5.0); Alkaline Phosphatase 100 U/L (39-117); Anion Gap 14 (12-20); Aspartate Amino Transferase 38 U/L (5-37); Bilirubin Total 0.3 mg/dL (0.0-1.0); Blood Urea Nitrogen 13 mg/dL (9-16); Carbon Dioxide 25 mmol/L (22-29); Chloride 106 mmol/L (96-108); Cholesterol 224 mg/dL (<200); Estimated Glomerular Filt Rate > 60; Glucose Random 95 mg/dL (60-115); HDL Cholesterol 61 mg/dL (>40); LDL Cholesterol Calculated 135 mg/dL (<100); Potassium 3.9 mmol/L (3.3-5.1); Sodium 141 mmol/L (135-145); Total Protein 8.6 g/dL (6.5-8.0); Triglycerides 143 mg/dL (<150)
[2024-06-19 15:38] LABS: Estimated Average Glucose 108 mg/dL; Hemoglobin A1c % 5.4 % (<6.0); Total Hemoglobin (HGBA1C) 3714.8423 umol/L
[2024-06-19 15:45] LABS: TSH reflex Free T4 3.31 uIU/mL (0.32-4.0)
[2024-06-19 15:57] LABS: Reflex LDLD? No
[2024-06-26 08:18] LABS: Testosterone, Free 33.3 pg/mL (35.0-155.0); Testosterone, Total 280 ng/dL (250-1100)
== END 2024-06-19 13:47 | disposition home or self-care (01) ==
LOC: HO.LAB 13:46
PROVIDERS: PCP Family Medicine; Referring Provider Urology; Visit Provider Family Medicine
DX: J45.51 Severe persistent asthma with (acute) exacerbation (principal); R68.82 Decreased libido; E03.9 Hypothyroidism, unspecified; I10 Essential (primary) hypertension; E78.5 Hyperlipidemia, unspecified; E66.813 Obesity, class 3; Z68.42 Body mass index [BMI] 45.0-49.9, adult; E66.01 Morbid (severe) obesity due to excess calories; Z13.1 Encounter for screening for diabetes mellitus; G47.33 Obstructive sleep apnea (adult) (pediatric); J40 Bronchitis, not specified as acute or chronic
CPT/HCPCS: 36415; 80053; 80061; 83036; 84402; 84403; 84443; 99212

== ENCOUNTER 2024-06-19 13:56 | Outpatient (AMB) | payer OTHER, SELFPAY ==
--- NOTE | 2024-06-19 14:02 | A.OFFVIS_ITS ---
Vital Signs 06/19/24 14:06 Height 5 ft 10 in Weight 348 lb 5.286 oz BMI 50.0 BP 114/60 Blood Pressure Location Rt brachial Position Sitting Pulse 84 Pulse Source Pulse Oximeter Pulse Oximetry (%) 95 Oxygen Delivery Method Room Air Intake Visit Reasons: Shortness of breath Senior Interactive Developer Required: No Alcoholism Worker: Alcoholism Worker offered & declined Accompanied by: Self / Same As Patient Allergies No Known Allergies Allergy (Verified 06/19/24 14:03) Medication List - Last Reconciled 06/19/24 by Celena Nair LPN acetaminophen (Tylenol Extra Strength) 500 mg PO Q6H PRN albuterol sulfate 90 mcg/actuation (ProAir HFA) 2 puffs inhalation Q6H PRN allopurinol 200 mg (2 x 100 mg) PO DAILY azithromycin 250 mg PO 3XW budesonide-formoterol 160-4.5 mcg/actuation (Symbicort) 2 puffs inhalation BID 30 days cetirizine 10 mg PO DAILY CPAP (CPAP Machine/Device) As directed docusate sodium (Colace) 100 mg PO BID epinephrine (EpiPen) 0.3 mg IM Q4H PRN escitalopram oxalate (Lexapro) 10 mg PO DAILY fluticasone propion-salmeterol 500-50 mcg/dose (Wixela Inhub) 1 inh inhalation BID fluticasone propionate 50 mcg/actuation 1 spray intranasal QAM hydrochlorothiazide 25 mg PO DAILY ibuprofen 800 mg PO Q6H PRN ipratropium bromide intranasal ipratropium-albuterol 0.5 mg-3 mg(2.5 mg base)/3 mL mL inhalation ipratropium-albuterol 0.5 mg-3 mg(2.5 mg base)/3 mL 3 mL inhalation BID 30 days ketorolac 10 mg PO TID PRN 5 days levofloxacin 500 mg PO DAILY loratadine (Claritin) 10 mg PO DAILY losartan 0 mg PO metronidazole 500 mg PO BID montelukast (Singulair) 10 mg PO DAILY nebulizers As directed omeprazole 20 mg PO DAILY@0630 oxycodone 5 mg PO BID PRN prednisone PO daily; Take 2 tabs daily x 5 days, then 1 tablet daily x 5 days 10 days sodium chloride 0.65% (Saline Nasal) sprays intranasal tadalafil 5 mg PO DAILY 90 days tadalafil 10 mg PO DAILY 90 days testosterone 2 pumps topical DAILY 30 days tramadol 50 mg PO BID PRN umeclidinium 62.5 mcg/actuation (Incruse Ellipta) 1 inh inhalation DAILY 30 days HPI Comments Details: The patient is a 53-year-old gentleman with a lifelong history of asthma although it was relatively controlled. The patient states that he was in his usual state health until August 2022 when he developed COVID 19 for the 2nd time. It was a relatively benign illness but afterwards he noted some difficulties with breathing. His asthma has been active and uncontrolled since then. He has required multiple courses the prednisone. He has been using his Wixela inhaler. He did try Trelegy in the past but that was not helpful actually made things worse. Therefore his continue with Wixela for now. The patient recently was seen by his primary care doctor was given additional prednisone. The patient has not had any formal allergy testing. He did have CT scan of the abdomen back in September which I personally reviewed and the lung with does appear to be clear without any evidence of any ground-glass opacities or scarring. Although he has never had chest x-ray this year. Therefore will going to request breathing studies and chest x-rays in addition to blood work and allergy testing. In the meantime will try to optimize the his respiratory therapy by adding budesonide nebs once a day and also adding anti muscarinic antagonist and also add a macrolide therapy 3 times a week. I am hopeful that he starts feeling better soon otherwise if he is not he can always call the office for an earlier assessment. Will follow-up after his PFTs. 03/21/2023 the patient is here for a pulmonary follow-up visit. She is feeling a lot better. Although he still having significant wheezing. The patient did not tolerate the Incruse therefore he stopped it. He continues on the Advair. The patient also has been using the nebulized therapy. Was also taking the antibiotic macrolide 3 times a week. We did review his blood work. His allergy testing is very significantly abnormal. His IgE levels up to 680. The patient has a normal eosinophilic level. The patient does benefit from starting biologic therapy with Xolair based on his ongoing uncontrolled asthma and also significant allergic chronic rhinitis. The patient is agreeable to starting. Will go ahead and start the prior approval process. The meantime he has been using the CPAP. CPAP therapy continues to be affecting beneficial. He did bring it in. He has been having difficulties with the nasal mask. 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 The patient will benefit from a AirTouch foam mask. I did have medium F20 available for him to trial. He will try it out and consider is a medium or large size. He will let me know. He currently gets supplies through [employer]. I also adjusted his machine from CPAP 11 to an APAP 7-13. Hopefully he can tolerate the APAP pressures more. 09/06/2023 the patient is here for a pulmonary follow-up visit. The patient still having significant asthma. Recently was exposed to since pet bird that he feels that his bothering his asthma. He also has other pets in the house that also give him significant allergies. His IgE level significantly elevated. The patient does qualify for Xolair based on her as allergic severe asthma. However, the patient has not had his PFTs. He had to reschedule. He understands that in order to start biologic therapy he will talk to have his PFTs. In the meantime he is going to need prednisone because of significant wheezing. The patient also has been coughing some. Productive in nature. Moderate severity. He has been using the CPAP. The CPAP settings have been much more tolerable for him. He does use it every night for more than 4 hours a night. Therapy continues to be affecting beneficial. Therefore, he will continue using CPAP will go ahead and continue his respiratory medicines although he is having hard time with the powdered inhalers. Therefore I will switch him over to Symbicort HFA. Will follow-up in 4-6 months. I am hopeful that he can have his PFTs in order for him to start Xolair. 06/19/2024 the patient is here for a pulmonary follow-up visit. He has been doing well until recently when he started developing worsening chest tightness and wheezing. Likely from an exposure to birds. He does have birds at home but he is going to get a respirator mask to try to minimize dander. He does have significant allergies and had elevated IgE level. We did talk about considering Xolair in the future. He needs to undergo pulmonary function studies. Will try to get the PFTs prior to the next visit. He had them schedule but then he had to have back surgery and knee surgery and has not had time. In regards of the CPAP the CPAP therapy continues to be affecting beneficial. He does use it every night. More than 4 hours a night. He does find it very effective. He will continue with the therapy at this time. Will follow-up sometime in the springtime with PFTs and figure out if he will benefit from Xolair. For now will going to continue him on Symbicort and will add Spiriva to his regimen. 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 SBO (small bowel obstruction) Abdominal pain, LLQ Gout Morbid obesity due to excess calories Obstructive sleep apnea Obesity Open wound anterior abdominal wall Incisional pain Incisional hernia Anxiety Asthma Incisional hernia SBO (small bowel obstruction) Surgical History Hx of carpal tunnel repair Status post Hattie's procedure H/O hernia repair Family History Mother Arthritis Father Arthritis Maternal Grandfather History of prostate cancer Maternal Grandmother History of breast cancer Social History Household Members: Significant Other, Family and Children Housing: Apartment Do you presently have visiting nurse or other home services: No Alcohol intake: never Comment: pt asleep Patient Tobacco Use Status: Former Tobacco user Second Hand Smoke Exposure: No Substance Use Type: Marijuana service: No Current occupational status: disabled 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 Review of Systems Const Denies chills and Denies fever(s) Eyes Denies change in vision ENT Denies change in voice Card Denies chest pain, Denies dyspnea and Reports dyspnea on exertion Resp Reports chest congestion, Reports cough, Denies dyspnea, Reports dyspnea on exertion and Reports wheezing GI Denies hematochezia and Denies change in bowel habits Musc Denies back pain and Denies limited range of motion Neuro Denies focal weakness and Denies convulsions Psych Denies depression and Denies mood swings Jose/Lymph Denies lymphadenopathy Aller/Immun Reports wheezing Physical Exam Vital Signs: Last Vital Signs Pulse 84 06/19/24 14:06 BP 114/60 06/19/24 14:06 Pulse Ox 95 06/19/24 14:06 Oxygen Delivery Method Room Air 06/19/24 14:06 BMI result Body Mass Index 50.0 Const General: comfortable HEENT Head: Yes normal to inspection Eyes General: appearance normal, both eyes and all related structures Neck Neck: Yes supple Chest Chest palpation & inspection: normal inspection of the chest Resp Effort & Inspection: normal respiratory effort Auscultation: no rhonchi, wheezes and diminished lung sounds Cardio Rate: regular rate Rhythm: regular rhythm Heart sounds: S1 normal heart sound present and S2 normal heart sound present GI Palpation (GI): Soft to palpation General: Yes no CVA tenderness Back/Spine/Pelvis Back: no CVA tenderness Skin General skin exam: no rashes or lesions noted Extrem General: No clubbing, No cyanosis and Yes edema Assessment & Plan Assessment & Plan (1) Asthma: Code(s): J45.909 - Unspecified asthma, uncomplicated Category: Medical Qualifiers: Asthma complication type: with acute exacerbation Asthma persistence: persistent Asthma severity: severe Qualified Code(s): J45.51 - Severe persistent asthma with (acute) exacerbation (2) Obstructive sleep apnea: Code(s): G47.33 - Obstructive sleep apnea (adult) (pediatric) Category: Medical (3) Bronchitis: Code(s): J40 - Bronchitis, not specified as acute or chronic Category: Medical Plan continue Symbicort start Spiriva stopped budesonide Neb Neti bottle continue duoneb 1-2 times aday continue CPAP: Adjusted to APAP 7-13 with Med Foam face mask: airtouch consider starting Xolair (needs PFTs) PFTs continue CPAP F/U 4-6 months Orders: Orders Complete Blood Count Auto Diff Today J45.51 - Severe persistent asthma with (acute) exacerbation Immunoglobulin E Today J45.51 - Severe persistent asthma with (acute) exacerbation Medications: New tiotropium bromide 2.5 mcg/actuation (Spiriva Respimat) 2 puffs inhalation DAILY 30 days 1 ea 11RF albuterol sulfate 90 mcg/actuation (Ventolin HFA) 2 puffs inhalation QID 30 days PRN 18 grams 11RF shortness of breath or wheezing Refilled budesonide-formoterol 160-4.5 mcg/actuation (Symbicort) 2 puffs inhalation BID 30 days 10.2 grams 11RF J44.89 - Other specified chronic obstructive pulmonary disease Discontinued umeclidinium 62.5 mcg/actuation (Incruse Ellipta) Discontinued Reason: Doctor's Order 1 inh inhalation DAILY 30 days 30 ea 11RF J45.909 - Unspecified asthma, uncomplicated Coding Level of Care Code Est Pt Level 4 (76680) Diagnoses Severe persistent asthma with acute exacerbation J45.51 Asthma complication type: with acute exacerbation Asthma persistence: persistent Asthma severity: severe Obstructive sleep apnea G47.33 Bronchitis J40 Time Spent (min) 17
[2024-06-19 14:06] VITALS: BP 114/60; PULSE 84; O2SAT 95; BMI 50.0
== END 2024-06-19 14:27 | disposition home or self-care (01) ==
PROVIDERS: PCP Family Medicine; Visit Provider Hospitalist
DX: J45.51 Severe persistent asthma with (acute) exacerbation (principal); G47.33 Obstructive sleep apnea (adult) (pediatric); J40 Bronchitis, not specified as acute or chronic
CPT/HCPCS: 99214

== ENCOUNTER 2024-07-02 14:27 | Outpatient (REF) | payer OTHER, SELFPAY ==
[2024-07-02 14:48] LABS: MANUAL DIFF FLAG NO
[2024-07-02 15:42] LABS: Basophils Percent Auto 0.4 % (0-2); Eosinophils Absolute Auto 0.5 X10*3/uL (0.0-0.4); Eosinophils Percent Auto 5.1 % (0-4); Hematocrit 40.6 % (42.0-52.0); Hemoglobin 13.5 g/dl (14.0-18.0); Imm Gran Abs Auto 0.07 X10*3/uL (0.00-0.03); Imm Gran Pct Auto 0.8 % (0.0-0.4); Lymphocytes Absolute Auto 2.4 X10*3/uL (1.2-4.9); Lymphocytes Percent Auto 26.7 % (20-40); Mean Corpuscular HGB Conc 33.3 g/dl (31.0-36.0); Mean Corpuscular Hemoglobin 28.5 pg (27.0-33.0); Mean Corpuscular Volume 85.7 fL (80.0-98.0); Mean Platelet Volume 8.9 fL (9.4-12.4); Monocytes Absolute Auto 0.8 X10*3/uL (0.1-1.2); Neutrophils Absolute Auto 5.3 x10*3/uL (2.0-8.3); Platelet Count 333 X10*3/uL (160-400); Red Blood Count 4.74 X10*6/uL (4.60-5.80); Red Cell Distribution Width 14.4 % (11.0-16.0); White Blood Count 9.1 X10*3/uL (4.8-10.8)
[2024-07-02 16:12] LABS: Alanine Aminotransferase 29 U/L (0-40); Aspartate Amino Transferase 34 U/L (5-37); Bilirubin Direct 0.1 mg/dL (0.0-0.5); Bilirubin Total 0.3 mg/dL (0.0-1.0)
[2024-07-02 16:20] LABS: Alkaline Phosphatase 109 U/L (39-117)
[2024-07-03 08:12] LABS: Hepatitis A Antibody IgG Nonreactive (Nonreactive); ~Hepatitis A Antibody IgG 0.43 S/CO (0.00-0.99)
[2024-07-03 08:16] LABS: HBS Num1 37.09 mIU/mL (0-7.99); HBc Num1 0.12 S/CO (0.00-0.79); Hepatitis B Core Antibody Nonreactive (Nonreactive); ~Hepatitis B Surface Antibody REACTIVE (Nonreactive); ~Hepatitis C Antibody Nonreactive (Nonreactive)
[2024-07-07 02:08] LABS: Immunoglobulin E 657 kU/L (<OR=114)
== END 2024-07-02 14:28 | disposition home or self-care (01) ==
LOC: HO.LAB 14:27
PROVIDERS: PCP Family Medicine; Referring Provider Family Medicine; Visit Provider Hospitalist
DX: J45.51 Severe persistent asthma with (acute) exacerbation (principal); R74.01 Elevation of levels of liver transaminase levels
CPT/HCPCS: 36415; 80076; 82785; 85025; 86704; 86706; 86708; 86803

== ENCOUNTER 2024-09-01 14:58 | Outpatient (AMB) | payer OTHER, SELFPAY ==
--- NOTE | 2024-09-01 14:58 | MHC.OFFVIS ---
Intake Visit Reasons: Testo(SET) Intake Note: Patient is present for TESTOSTERONE Urology Medication:ALLOPURINOL Antibiotic Allergy:NONE Blood Thinner:NONE Felt Cutting Machine Operator Required: No Allergies No Known Allergies Allergy (Verified 09/01/24 14:59) HPI Comments Details: Brady is a pleasant male. He is a patient of . He is seen for the following urologic conditions - hypogonadism Telemedicine Evaluation 15 min Consultation DoxGetLikeminds Osmani Video attempted High co-pay for testosterone bottle Prescription provided for packets Six-month follow-up lab work Decreased libido/hypogonadism Progressive Initial lab work shows borderline T with elevated FSH suggestive of depressed testicular response Labs - 03/03 T250 FT 32, FSH 16, LH 7.7, 06/03 275 FT 32, 03/04 T 197, 07/05 T 280 Associated conditions include obesity - dyslipidemia cholesterol 232 PFSH Medical History Bleeding hemorrhoids [id number] syndrome SBO (small bowel obstruction) Abdominal pain, LLQ Gout Morbid obesity due to excess calories Obstructive sleep apnea Obesity Open wound anterior abdominal wall Incisional pain Incisional hernia Anxiety Asthma Incisional hernia SBO (small bowel obstruction) Surgical History Hx of carpal tunnel repair Status post Hattie's procedure H/O hernia repair Family History Mother Arthritis Father Arthritis Maternal Grandfather History of prostate cancer Maternal Grandmother History of breast cancer Social History Household Members: Significant Other, Family and Children Housing: Apartment Do you presently have visiting nurse or other home services: No Alcohol intake: never Comment: pt asleep Patient Tobacco Use Status: Former Tobacco user Second Hand Smoke Exposure: No Substance Use Type: Marijuana service: No Current occupational status: disabled 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 Review of Systems Const All systems reviewed & are unremarkable except as noted in HPI and below Reports no additional complaints Resp Reports no additional complaints GI Reports no additional complaints Reports as per HPI Musc Reports no additional complaints Physical Exam Telemedicine evaluation Appropriate responses Regular breathing rate and rhythm HEENT Head: Yes normal to inspection Ears: hearing grossly normal bilaterally Eyes General: appearance normal, both eyes and all related structures Neck Neck: Yes normal visual inspection Chest Chest palpation & inspection: normal inspection of the chest Resp Effort & Inspection: normal respiratory effort and able to speak in complete sentences Telehealth Telehealth Location of provider rendering services: practice address Location of patient: address on file Patient Identification confirmed using: Name, : Yes Telehealth method: voice only Patient verbally consented to treatment: Yes Patient verbally consented to billing insurance company: Yes Patient informed of any privacy concerns related to visit: Yes Assessment & Plan Assessment & Plan (1) Hypogonadism in male: Code(s): E29.1 - Testicular hypofunction Category: Medical Plan Prescription testosterone gel Six-month follow-up lab work Orders: Orders Testosterone, Total 6 Months E29.1 - Testicular hypofunction Complete Blood Count no Diff 6 Months E29.1 - Testicular hypofunction Prostate Specific Antigen 6 Months E29.1 - Testicular hypofunction Medications: New testosterone apply 1 packet daily 50 mg transdermal DAILY 150 grams 1RF 30 days E29.1 - Testicular hypofunction Patient Instructions: This note is constructed using voice recognition software. While every effort has been made to ensure accuracy collection administrator errors may have been included. Imaging studies, laboratory and physical exam results were discussed and reviewed in detail. No major barriers to patient understanding were identified. An opportunity to ask questions regarding the treatment plan was provided. All questions were answered. The patient expressed understanding and agreement with the above treatment plan. The patient is aware they should contact our office by phone for worsening of their current condition or the appearance of new urologic symptoms. Compliance is encouraged with any medications and followup testing that is ordered. It is a privilege to participate in the urologic care of your patient. If you have any questions or concerns regarding treatment for the above conditions, or other urologic issues, please do not hesitate to contact me. The office telephone contact is [phone]. Sincerely, Dr Pasquale Shannon MD, [facility] - Urology Compassionate Specialist Care for the Genitourinary System Coding Level of Care Code Tele Est Pt Level 4 (82166) Complex EM visit Add On G2211 Diagnoses Hypogonadism in male E29.1
== END 2024-09-01 16:31 | disposition home or self-care (01) ==
LOC: HO.HUSH 14:58
PROVIDERS: PCP Family Medicine; Visit Provider Urology
DX: E29.1 Testicular hypofunction (principal)
CPT/HCPCS: 99214; G2211

== ENCOUNTER → 2024-09-01 14:58 | Outpatient (BNVA) | payer OTHER, SELFPAY | PROVIDERS: PCP Family Medicine; Visit Provider Urology ==

== ENCOUNTER 2024-11-17 14:03 | Outpatient (AMB) | payer OTHER, SELFPAY ==
--- NOTE | 2024-11-17 14:14 | A.OFFVIS_ITS ---
Vital Signs 11/17/24 14:16 Height 5 ft 10 in Weight 338 lb 6.553 oz BMI 48.6 BP 126/74 Blood Pressure Location Rt brachial Position Sitting Pulse 53 Pulse Source Pulse Oximeter Pulse Oximetry (%) 95 Oxygen Delivery Method Room Air Intake Visit Reasons: Shortness of breath Allergies No Known Allergies Allergy (Verified 11/17/24 14:20) HPI Comments Details: The patient is a 53-year-old gentleman with a lifelong history of asthma although it was relatively controlled. The patient states that he was in his usual state health until August 2022 when he developed COVID 19 for the 2nd time. It was a relatively benign illness but afterwards he noted some difficulties with breathing. His asthma has been active and uncontrolled since then. He has required multiple courses the prednisone. He has been using his Wixela inhaler. He did try Trelegy in the past but that was not helpful actually made things worse. Therefore his continue with Wixela for now. The patient recently was seen by his primary care doctor was given additional prednisone. The patient has not had any formal allergy testing. He did have CT scan of the abdomen back in September which I personally reviewed and the lung with does appear to be clear without any evidence of any ground-glass opacities or scarring. Although he has never had chest x-ray this year. Therefore will going to request breathing studies and chest x-rays in addition to blood work and allergy testing. In the meantime will try to optimize the his respiratory therapy by adding budesonide nebs once a day and also adding anti muscarinic antagonist and also add a macrolide therapy 3 times a week. I am hopeful that he starts feeling better soon otherwise if he is not he can always call the office for an earlier assessment. Will follow-up after his PFTs. 03/21/2023 the patient is here for a pulmonary follow-up visit. She is feeling a lot better. Although he still having significant wheezing. The patient did not tolerate the Incruse therefore he stopped it. He continues on the Advair. The patient also has been using the nebulized therapy. Was also taking the antibiotic macrolide 3 times a week. We did review his blood work. His allergy testing is very significantly abnormal. His IgE levels up to 680. The patient has a normal eosinophilic level. The patient does benefit from starting biologic therapy with Xolair based on his ongoing uncontrolled asthma and also significant allergic chronic rhinitis. The patient is agreeable to starting. Will go ahead and start the prior approval process. The meantime he has been using the CPAP. CPAP therapy continues to be affecting beneficial. He did bring it in. He has been having difficulties with the nasal mask. 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 The patient will benefit from a AirTouch foam mask. I did have medium F20 available for him to trial. He will try it out and consider is a medium or large size. He will let me know. He currently gets supplies through [employer]. I also adjusted his machine from CPAP 11 to an APAP 7-13. Hopefully he can tolerate the APAP pressures more. 09/06/2023 the patient is here for a pulmonary follow-up visit. The patient still having significant asthma. Recently was exposed to since pet bird that he feels that his bothering his asthma. He also has other pets in the house that also give him significant allergies. His IgE level significantly elevated. The patient does qualify for Xolair based on her as allergic severe asthma. However, the patient has not had his PFTs. He had to reschedule. He understands that in order to start biologic therapy he will talk to have his PFTs. In the meantime he is going to need prednisone because of significant wheezing. The patient also has been coughing some. Productive in nature. Moderate severity. He has been using the CPAP. The CPAP settings have been much more tolerable for him. He does use it every night for more than 4 hours a night. Therapy continues to be affecting beneficial. Therefore, he will continue using CPAP will go ahead and continue his respiratory medicines although he is having hard time with the powdered inhalers. Therefore I will switch him over to Symbicort HFA. Will follow-up in 4-6 months. I am hopeful that he can have his PFTs in order for him to start Xolair. 06/19/2024 the patient is here for a pulmonary follow-up visit. He has been doing well until recently when he started developing worsening chest tightness and wheezing. Likely from an exposure to birds. He does have birds at home but he is going to get a respirator mask to try to minimize dander. He does have significant allergies and had elevated IgE level. We did talk about considering Xolair in the future. He needs to undergo pulmonary function studies. Will try to get the PFTs prior to the next visit. He had them schedule but then he had to have back surgery and knee surgery and has not had time. In regards of the CPAP the CPAP therapy continues to be affecting beneficial. He does use it every night. More than 4 hours a night. He does find it very effective. He will continue with the therapy at this time. Will follow-up sometime in the springtime with PFTs and figure out if he will benefit from Xolair. For now will going to continue him on Symbicort and will add Spiriva to his regimen. 11/17/2024 the patient is here for a pulmonary follow-up visit. The patient overall has been doing okay although his asthma has been more active. He been under Wixela. Does not feel like the Wixela is helping him. We did prescribe Spiriva but it was not able to be filled. The patient continues uses rescue inhaler several times a day. He is also using Claritin right now for his allergy symptoms. He also uses Singulair at nighttime. Still no significant improvement with wheezing on a regular basis. Moderate amount. On a good note, the patient is working on weight loss. He was started on his Zepbound and he has already noticed about 20 lb weight loss. He is also exercising. For now will going to optimize his respiratory therapy by switching over to Trelegy. Also the Claritin we switch to Zyrtec as it worse a little better for him. As far as CPAP CPAP therapy continues to be affecting beneficial. He does use it every night. He does use it for more than 4 hours a night. His does case his supplies readily. Therefore, will have him return in about 4-6 months to assess his progress. He is not demonstrating any improvement he would benefit from starting biologic therapy such as Xolair. 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 SBO (small bowel obstruction) Abdominal pain, LLQ Gout Morbid obesity due to excess calories Obstructive sleep apnea Obesity Open wound anterior abdominal wall Incisional pain Incisional hernia Anxiety Asthma Incisional hernia SBO (small bowel obstruction) Surgical History Hx of carpal tunnel repair Status post Hattie's procedure H/O hernia repair Family History Mother Arthritis Father Arthritis Maternal Grandfather History of prostate cancer Maternal Grandmother History of breast cancer Social History Household Members: Significant Other, Family and Children Housing: Apartment Do you presently have visiting nurse or other home services: No Alcohol intake: never Comment: pt asleep Patient Tobacco Use Status: Former Tobacco user Second Hand Smoke Exposure: No Substance Use Type: Marijuana service: No Current occupational status: disabled 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 Review of Systems Const Denies chills, Denies fever(s) and Reports weight loss Eyes Denies change in vision ENT Denies change in voice Card Denies chest pain, Denies dyspnea and Reports dyspnea on exertion Resp Reports chest congestion, Reports cough, Denies dyspnea, Reports dyspnea on exertion and Reports wheezing GI Denies hematochezia and Denies change in bowel habits Musc Denies back pain and Denies limited range of motion Neuro Denies focal weakness and Denies convulsions Psych Denies depression and Denies mood swings Jose/Lymph Denies lymphadenopathy Aller/Immun Reports wheezing Physical Exam Vital Signs: Last Vital Signs Pulse 53 11/17/24 14:16 BP 126/74 11/17/24 14:16 Pulse Ox 95 11/17/24 14:16 Oxygen Delivery Method Room Air 11/17/24 14:16 BMI result Body Mass Index 48.6 Const General: comfortable HEENT Head: Yes normal to inspection Eyes General: appearance normal, both eyes and all related structures Neck Neck: Yes supple Chest Chest palpation & inspection: normal inspection of the chest Resp Effort & Inspection: normal respiratory effort Auscultation: no rhonchi, wheezes and diminished lung sounds Cardio Rate: regular rate Rhythm: regular rhythm Heart sounds: S1 normal heart sound present and S2 normal heart sound present GI Palpation (GI): Soft to palpation General: Yes no CVA tenderness Back/Spine/Pelvis Back: no CVA tenderness Skin General skin exam: no rashes or lesions noted Extrem General: No clubbing, No cyanosis and Yes edema Assessment & Plan Assessment & Plan (1) Asthma: Code(s): J45.909 - Unspecified asthma, uncomplicated Category: Medical Qualifiers: Asthma complication type: with acute exacerbation Asthma persistence: persistent Asthma severity: severe Qualified Code(s): J45.51 - Severe persistent asthma with (acute) exacerbation (2) Obstructive sleep apnea: Code(s): G47.33 - Obstructive sleep apnea (adult) (pediatric) Category: Medical (3) Bronchitis: Code(s): J40 - Bronchitis, not specified as acute or chronic Category: Medical Plan stop Wixela never received Spiriva start Trelegy 200 daily start Zyrtec Neti bottle continue duoneb 1-2 times aday continue CPAP: Adjusted to APAP 7-13 with Med Foam face mask: airtouch consider starting Xolair (needs PFTs) weight management F/U 4-6 months Medications: New cviymacuhay-dvbsnlrsk-mtfhnftb 200-62.5-25 mcg (Trelegy Ellipta) 1 inh inhalation DAILY 60 ea 12RF 30 days Changed From cetirizine 10 mg PO DAILY To cetirizine 10 mg PO DAILY 30 tabs 7RF 30 days Discontinued tiotropium bromide 1.25 mcg/actuation (Spiriva Respimat) Discontinued Reason: Doctor's Order 2 puffs inhalation DAILY 30 days 4 grams 11RF tiotropium bromide 2.5 mcg/actuation (Spiriva Respimat) Discontinued Reason: Doctor's Order 2 puffs inhalation DAILY 30 days 1 ea 11RF Coding Level of Care Code Est Pt Level 4 (59581) Complex EM visit Add On G2211 Diagnoses Severe persistent asthma with acute exacerbation J45.51 Asthma complication type: with acute exacerbation Asthma persistence: persistent Asthma severity: severe Obstructive sleep apnea G47.33 Bronchitis J40 Time Spent (min) 16
[2024-11-17 14:16] VITALS: BP 126/74; PULSE 53; O2SAT 95; BMI 48.6
--- OUTSIDE RECORDS SUMMARY | 2024-11-17 17:11 | XMS_ITS | Encounter Summary ---
Author Organization [employer] Address [address] [facility] 7t [place] [address] Care Team Providers Care Information Technology Coordinator Name Role Phone Patricia Berry MD Primary Care Provider [phone] Craig Ochoa PharmD Unavailable [phone] Reason for Visit * Reason Comments Med Refill Encounter Details Date Type Department Care Team ([facility] st Contact Info) Description 08/07/2023 Refill [facility] [address] [place] [address] Patricia Berry MD [address] [place], [place] [phone] Mood disorder (CMS/HCC); Chronic pain syndrome Social History Tobacco Use Types Packs/Day Years Used Date Smoking Tobacco: Never Passive Smoke Exposure: Never Smokeless Tobacco: Never Alcohol Use Standard Drinks/Week Comments Never 0 (1 standard drink = 0.6 oz pur e alcohol) PHQ-2 Answer Date Recorded Patient Health Questionnaire-2 Score 2 11/13/2022 Housing Stability Answer Date Recorded What is your housing situation today? I have srikanth kaplan 05/28/[address] you li ve. Do you have problems with any of the following? None of the above 05/28/2023 Food Insecurity Answer Date Recorded Within the past 12 months, y ou worried that your food would run out before you got money to buy more: Never True 05/28/2023 Within the past 12 months,th e food you bought just didn't last and you didn't have enough money to get more: Never True Transportation Answer Date Recorded In the past 12 months, has l ack of transportation kept you from medical appts, meetings, work or from getting things needed for daily living? No 05/28/2023 Utilities Answer Date Recorded In the past 12 months, has t he electric, gas, oil or water company threatened to shut off services in your home? No 05/28/2023 Depression Answer Date Recorded Patient Health Questionnaire-2 Score 2 11/13/2022 Sex and Gender Information Value Date Recorded Sex Assigned at Male 06/11/2022 10:27 AM EDT Legal Sex Male 10:27 AM EDT Gender Identity Choose not to disclose 10:27 AM EDT Sexual Orientation Choose not to disclose 2021 10:27 AM EDT documented as of this encounter Plan of Treatment Upcoming Encounters Date Type Department Care Team (Late st Contact Info) Description 12/08/2024 3:45 PM EDT Office Visit [facility] [address] [place] [address] Patricia Berry MD [address] [place] [address] 01/05/2025 11:00 AM EDT Office Visit [address] [address] documented as of this encounter Goals Goal Patient Goal Type Associated Problems Recent Progress Patient-Stated? Author Blood Pressure < 140/90 Blood Pressure 120/92( 025 10:38 AM EST) No Craig Ochoa, Caroline documented as of this encounter Visit Diagnoses Diagnosis Mood disorder (CMS/[facility]) Unspecified episodic mood disorder Chronic pain syndrome documented in this encounter Care Teams Information Technology Coordinator Relationship Specialty Start Date End Date Patricia Berry MD [address] [place] [address] PCP - General Family Medicine 05/11/21 Craig Ochoa, ShawnD [address] [place] [address] Pharmacist Internal Medicine 05/24/23 documented as of this encounter
--- OUTSIDE RECORDS SUMMARY | 2024-11-17 17:11 | XMS_ITS | Encounter Summary ---
Author Organization [employer] Address [address] [facility] 7t [place] [address] Care Team Providers Care Mva Reactor Operator Head Name Role Phone Patricia Berry MD Primary Care Provider [phone] Craig Ochoa PharmD Unavailable [phone] Reason for Visit * Reason Comments Med Refill Encounter Details Date Type Department Care Team (Late st Contact Info) Description 08/04/2023 Refill [facility] [address] [place] [address] Moses Tejada, BENNETT Acute mucoid otitis media of both ears Social History Tobacco Use Types Packs/Day Years [...] Description 12/08/2024 3:45 PM EDT Office Visit [facility] [address] [place] [address] Patricia Berry MD [address] [place] [address] 01/05/2025 11:00 AM EDT Office Visit [address] [address] documented as of this encounter Goals Goal Patient Goal Type Associated Problems Recent Progress Patient-Stated? Author Blood Pressure < 140/90 Blood Pressure 120/92( 025 10:38 AM EST) No Craig Ochoa, Caroline documented as of this encounter Visit Diagnoses Diagnosis Acute mucoid otitis media of both ears documented in this encounter Care Teams Mva Reactor Operator Head Relationship Specialty Start Date End Date Patricia Berry MD [address] [place] [id number] PCP - General Family Medicine 05/11/21 Craig Ochoa, PharmD [address] [place] [address] Pharmacist Internal Medicine 05/24/23 documented as of this encounter
--- OUTSIDE RECORDS SUMMARY | 2024-11-17 17:11 | XMS_ITS | Encounter Summary ---
Author Organization [employer] Address [address] [facility] 7t [place] [address] Care Team Providers Care Senior Accountant Cpa Name Role Phone Patricia Berry MD Primary Care Provider [phone] Craig Ochoa PharmD Unavailable [phone] Reason for Visit * Reason Onset Date Comments Med Refill 11/17/2024 Encounter Details Date Type Department Care Team ([facility] st Contact Info) Description 11/17/2024 Refill [facility] [address] [place] [address] Renee Vazquez, RN [address] [place] [address] Chronic bilateral low back pain, unspecified whether sciatica present; Chronic pain of left knee Social History Tobacco Use Types Packs/Day Years Used Date Smoking Tobacco: Never Passive Smoke Exposure: Never Smokeless Tobacco: Never Alcohol Use Standard Drinks/Week Comments Never 0 (1 standard drink = 0.6 oz pur e alcohol) Alcohol Answer Date Recorded Frequency of Alcohol Consumption Not on file 06/02/2024 Average Number of Drinks Not on file 024 Frequency of Binge Drinking Not on file 05/13 Score 0 06/02/2024 Depression Answer Date Recorded Patient Health Questionnaire-9 Score 0 11/27/2023 Patient Health Questionnaire-9 Score 0 11/27/2023 Last PHQ-9: Questionnaire Data Not on file 0 11/27/2023 Housing Stability Answer Date Recorded What is your housing situation today? I have srikanth kaplan 11/27/[address] you li ve. Do you have problems with any of the following? None of the above 11/27/2023 Food Insecurity Answer Date Recorded Within the past 12 months, y ou worried that your food would run out before you got money to buy more: Never True 11/27/2023 Within the past 12 months,th e food you bought just didn't last and you didn't have enough money to get more: Never True Transportation Answer Date Recorded In the past 12 months, has l ack of transportation kept you from medical appts, meetings, work or from getting things needed for daily living? No 11/27/2023 Utilities Answer Date Recorded In the past 12 months, has t he electric, gas, oil or water company threatened to shut off services in your home? No 11/27/2023 Depression Answer Date Recorded Patient Health Questionnaire-2 Score 0 11/27/2023 Sex and Gender Information Value Date Recorded [...] Description 12/08/2024 3:45 PM EDT Office Visit [address] [address] Patricia Berry MD [address] [place] [address] 01/05/2025 11:00 AM EDT Office Visit [address] [address] documented as of this encounter Goals Goal Patient Goal Type Associated Problems Recent Progress Patient-Stated? Author Blood Pressure < 140/90 Blood Pressure 120/92( 025 10:38 AM EST) Craig Ramsey, ShawnD documented as of this encounter Visit Diagnoses Diagnosis Chronic bilateral low back pain, unspecified whether sciatica present Chronic pain of left knee documented in this encounter Additional Health Concerns Assessment Noted Time PHQ-9 Depression Total Score: 0 11/27/19 24 10:58 AM EDT documented as of this encounter Care Teams Senior Accountant Cpa Relationship Specialty Start Date End Date Patricia Berry MD [address] [place] [address] PCP - General Family Medicine 05/11/21 Craig Ochoa, ShawnD [address] [place] [address] Pharmacist Internal Medicine 05/24/23 documented as of this encounter
--- OUTSIDE RECORDS SUMMARY | 2024-11-17 17:11 | XMS_ITS | Encounter Summary ---
Author Organization [employer] Address [address] [facility] 7t [place] [address] Care Team Providers Care Tombstone Carver Name Role Phone Patricia Berry MD Primary Care Provider [phone] Craig Ochoa PharmD Unavailable [phone] Reason for Visit * Reason Onset Date Comments Appointment Request 10/12/2022 Encounter Details Date Type Department Care Team ([facility] st Contact Info) Description 10/12/2022 Telephone [facility] [address] [place], [place] [phone] Patricia Berry MD [address] [place], [place] [phone] Appointment Request Social History Tobacco Use Types Packs/Day Years Used Date Smoking Tobacco: Never Passive Smoke Exposure: Never Smokeless Tobacco: Never Sex and Gender Information Value Date Recorded Sex Assigned at Male 06/11/2022 10:27 AM EDT Legal Sex Male 10:27 AM EDT Gender Identity Choose not to disclose 10:27 AM EDT Sexual Orientation Choose not to disclose 2021 10:27 AM EDT COVID-19 Exposure Response Date Recorded In the last 10 days, have yo u been in contact with someone who was confirmed or suspected to have Coronavirus/COVID-19? No / Unsure 09/17/2022 4:22 PM EST documented as of this encounter Miscellaneous Notes * Telephone Encounter - Debi Mares - 10/12/2022 2:46 PM EST Tc from pt requesting to r/s appt for 10/12/2022 for MEDICAL RECORDS LIBRARY PROFESSOR. Pt was confused on the times. Please contact pt at [phone] documented in this encounter Plan of Treatment Upcoming Encounters Date Type Department Care Team (Late st Contact Info) Description 12/08/2024 3:45 PM EDT Office Visit [address] [address] Patricia Berry MD [address] [place] [address] 01/05/2025 11:00 AM EDT Office Visit [address] [address] documented as of this encounter Visit Diagnoses Diagnosis Chronic pain syndrome documented in this encounter Care Teams Tombstone Carver Relationship Specialty Start Date End Date Patricia Berry MD [address] [place] [phone] PCP - General Family Medicine 05/11/21 Craig Ochoa, PharmD [address] [place] [phone] Pharmacist Internal Medicine 05/24/23 documented as of this encounter
--- OUTSIDE RECORDS SUMMARY | 2024-11-17 17:11 | XMS_ITS | Clinical Summary ---
Author Organization [employer] Address [address] [place] [address] Care Team Providers Care Certified Substance Abuse Counselor Name Role Phone Patricia Berry MD Primary Care Provider Craig Ochoa PharmD Unavailable Allergies Active Allergy Reactions Criticality Noted Date Comments Egg White (Egg Protein) 07/14/2021 Mouth Sores, Rash (but as of recently eats eggs regularly without a reaction 2022) Other Swelling 05/24/2023 Other reaction(s): cooking spray EGGS Peanut Oil 08/06/2022 Medications albuterol (ProAir HFA) 108 (90 Base) MCG/ACT inhaler Inhale every 6 (six) hours. Active allopurinol (Zyloprim) 100 MG tablet TOME DOS TABLETAS POR V A ORAL TODOS LOS D Active Cyanocobalamin (B-12) 1000 MCG sublingual tablet PLEASE SEE ATTACHED FOR DETAILED DIRECTIONS Active EPINEPHrine (Epipen) 0.3 MG/0.3ML injection syringe INJECT 0.3 ML POR V A INTRAMUSCULAR ONCE NEEDED FOR ANAPHYLAXIS Active naloxone (Narcan) 4 mg/0.1 mL nasal spray PLEASE SEE ATTACHED FOR DETAILED DIRECTIONS Active polyethylene glycol, PEG, 3350 ([facility]S Purelax) 17 GM/SCOOP powder Purelax 17 gram/dose oral powder MIX 17GRAMS ( CAPFULL) IN A GLASS OF WATER AND DRINK DOS VECES AL D A DIRECTED Active ipratropium-alb uterol (Duo-Neb) 0.5-2.5 mg/3 mL nebulizer solutionIndicat ions:Moderate persistent asthma without complication USE 1 VIAL VIA NEBULIZER EVERY 8 HOURS NEEDED FOR WHEEZE/SHORTNESS OF BREATH 270 mL 1 023 Active loratadine (Claritin) 10 MG tabletIndicatio ns:Seasonal allergies,Subac jordi maxillary sinusitis TOME RADHA TABLETA TODOS LOS PETERSON 90 tablet 1 023 Active Incruse Ellipta 62.5 MCG/ACT aerosol powder TOME RADHA INHALACI N POR V A ORAL TODOS LOS D 023 Active tadalafil (Cialis) 10 MG tablet TAKE ONE TABLET BY MOUTH EVERY DAY FOR SEXUAL ACTIVITY 023 Active azithromycin (Zithromax) 250 MG tablet TOME RADHA TABLETA POR V A ORAL 3 TIMES A WEEK MON / SAT / Sat 023 Active Blood Pressure Monitor kitIndications: Primary hypertension Use as directed daily to measure blood pressure 1 kit 023 Active fluticasone (Flonase) 50 MCG/ACT nasal sprayIndication s:Subacute maxillary sinusitis SPRAY 1 SPRAY INTO EACH NOSTRIL TWICE A DAY 48 mL 1 024 Active budesonide-form oterol (Symbicort) 160-4.5 MCG/ACT inhaler Inhale 2 puffs in the morning and at bedtime. 024 Active celecoxib (CeleBREX) 200 MG capsule Take 200 mg by mouth Once per day. 024 Active oxyCODONE (Roxicodone) 5 MG immediate release tablet 024 Active ipratropium (Atrovent) 0.03 % nasal sprayIndication s:Seasonal allergies SPRAY 2 SPRAYS INTO EACH NOSTRIL EVERY DAY IF NEEDED FOR CONGESTION 90 mL 1 024 Active hydroCHLOROthia zide (HYDRODiuril) 25 MG tabletIndicatio ns:Primary hypertension Take 1 tablet by mouth once daily 90 tablet 3 024 Active escitalopram (Lexapro) 10 MG tabletIndicatio ns:Mood disorder (CMS/HCC) TOME RADHA TABLETA TODOS LOS PETERSON EN LA MANANA 90 tablet 3 024 Active levothyroxine (Synthroid, Levoxyl) 50 MCG tablet TAKE 1 TABLET (50 MCG) BY MOUTH IN THE MORNING. TAKE AT LEAST 40 MINUTES BEFORE MEAL 90 tablet 3 024 2024 Active losartan (Cozaar) 25 MG tablet TAKE 1 TABLET BY MOUTH IN THE MORNING. TAKE 1 TABLET BY MOUTH IN THE EVENING. DO NOT TAKE IF SBP<120 180 tablet 1 Active docusate sodium (Colace) 100 MG capsuleIndicati ons:Constipatio n, unspecified constipation type TAKE 1 CAPSULE BY MOUTH 2 TIMES EVERY DAY 180 capsule 1 024 Active sodium chloride (CVS Saline Nasal [place]) 0.65 % nasal spray USE 1-2 SPRAY ON EACH NOSTRIL EVERY 2-3 HOURS NEEDED FOR NASAL CONGESTION 44 mL 1 024 Active Tirzepatide-Neil ght Management (Zepbound) 2.5 MG/0.5ML solution auto-injectorIn dications:Class 3 severe obesity due to excess calories with serious comorbidity and body mass index (BMI) of 50.0 to 59.9 in adult ([facility]) Inject 0.5 mL (2.5 mg) under the skin 1 (one) time per week. 2 mL 11 025 Active omeprazole (PriLOSEC) [address] capsule TOME 1 CAPSULA (20 MG) POR VIA ORAL ANTES DEL DESAYUNO DO NOT CRUSH OR CHEW 90 capsule 3 025 Active montelukast (Singulair) 10 MG tabletIndicatio ns:Moderate persistent asthma without complication TAKE 1 TABLET BY MOUTH EVERY DAY 90 tablet 2 025 Active ibuprofen 800 MG tabletIndicatio ns:Chronic pain syndrome TAKE 1 TABLET BY MOUTH FOUR TIMES EVERY DAY WITH FOOD NEEDED 60 tablet 1 025 Active tiZANidine (Zanaflex) 4 MG tablet TAKE 1 TABLET BY MOUTH AT BEDTIME NEEDED FOR MUSCLE SPASMS. 30 tablet 025 Active traMADol (Ultram) 50 MG tabletIndicatio ns:Chronic bilateral low back pain, unspecified whether sciatica present,Chronic pain of left knee Take 1 tablet (50 mg) by mouth every 8 (eight) hours for 14 days. Do not start before November 19, 2024. 42 tablet 025 2024 Active traMADol (Ultram) 50 MG tabletIndicatio ns:Chronic bilateral low back pain, unspecified whether sciatica present,Chronic pain of left knee Take 1 tablet (50 mg) by mouth every 8 (eight) hours for 14 days. Do not start before October 09, 2024. 42 tablet 025 2024 Discontinued(R eorder (will not trigger notification to Pharmacy)) tiZANidine (Zanaflex) 4 MG tablet TAKE 1 TABLET BY MOUTH AT BEDTIME NEEDED FOR MUSCLE SPASMS 30 tablet 025 2024 Discontinued traMADol (Ultram) 50 MG tabletIndicatio ns:Chronic bilateral low back pain, unspecified whether sciatica present,Chronic pain of left knee Take 1 tablet (50 mg) by mouth every 8 (eight) hours for 14 days. 42 tablet 025 2024 Discontinued(R eorder (will not trigger notification to Pharmacy)) traMADol (Ultram) 50 MG tabletIndicatio ns:Chronic bilateral low back pain, unspecified whether sciatica present,Chronic pain of left knee Take 1 tablet (50 mg) by mouth every 8 (eight) hours for 14 days. 42 tablet 025 2024 Discontinued(R eorder (will not trigger notification to Pharmacy)) Active Problems Problem Noted Date Diagnosed Date Long-term current use of opiate analgesic 2024 Hypogonadism in male 06/02/2024 Assessment & Plan (06/02/2024 5:35 PM EDT): - Following with Dr. Shannon, [facility]. Last seen in Mar 2024 - Encouraged to talk with [employer] day care worker regarding to coverage for testosterone Dyslipidemia 11/27/2023 Assessment & Plan (08/30/2024 3:42 PM EST): - last lipid profile 02/26/23, elevated LDL - work on lifestyle modifications - ASCVD risk is 4% - check lipid profile and consider coronary calcium score test Assessment & Plan (06/02/2024 5:38 PM EDT): - last lipid profile 02/26/23, elevated LDL - work on lifestyle modifications - ASCVD risk is 4.5% - check lipid profile and consider coronary calcium score test Assessment & Plan (11/27/2023 2:44 PM EDT): - last lipid profile 02/26/23, elevated LDL - work on lifestyle modifications - ASCVD risk is 4.5% - check lipid profile and consider coronary calcium score test Venous insufficiency 09/10/2023 09/10/2023 Low libido 09/10/2023 09/10/2023 Low back pain of multiple sites of spine with sc iatica 09/10/2023 09/10/2023 Assessment & Plan (08/30/2024 3:39 PM EST): - following with Dr. Dumas - continue judicious use of tramadol - Rx tizanidine Inguinal lymphadenopathy 09/10/2023 024 Hematuria 09/10/2023 09/10/2023 Gout 09/10/2023 09/10/2023 Assessment & Plan (11/27/2023 2:44 PM EDT): - continue allopurinol and low purine diet Arthritis of knee 09/10/2023 09/10/2023 Dysuria-frequency syndrome 09/10/202309/10 Anxiety 09/10/2023 09/10/2023 Assessment & Plan (11/27/2023 2:39 PM EDT): - following with behavioral health service - currently taking escitalpram Hemorrhoids 08/18/2023 Assessment & Plan (08/18/2023 7:48 AM EST): - internal hemorrhoids seen during anoscopy exam by Dr. Nowak on 07/25/23 - avoid prolonged sitting; exercise; avoid constipation - symptomatic treatment prn [id number] condition 11/26/2022 Assessment & Plan (08/18/2023 7:46 AM EST): - He had COVID in 2019, and did not have sequale. - He did not recover fully since he had COVID in Aug 2022 - seen by material flow analyst in January 2023, prescribed azithromycin, slow prednisone taper and changed asthma / COPD medications. - marked improvement; continue current treatment plan per Dr. Day. - judicious use of DuoNeb as he is experiencing leg cramp, possible low K and Mg Assessment & Plan (03/18/2023 4:17 PM EDT): - He had COVID in 2019, and did not have sequale. - He did not recover fully since he had COVID in Aug 2022 - seem by material flow analyst in January 2023, prescribed azithromycin, slow prednisone taper and changed asthma / COPD medications. - marked improvement today; continue current treatment plan per Dr. Day. - judicious use of DuoNeb as he is experiencing leg cramp, possible low K and Mg Assessment & Plan (11/26/2022 11:03 AM EDT): - still coughing since he had COVID in Aug 2022 - referring to material flow analyst Chronic pain of left knee 08/11/2022 Assessment & Plan (08/30/2024 3:36 PM EST): -orthopedist: [facility] -s/p left total knee arthroplasty on 04/22/24 -continue following treatment plan per [facility] provider -continue working on weight loss -continue judicious use of tramadol for pain, plan to taper down to bid Assessment & Plan (06/02/2024 5:42 PM EDT): -orthopedist: [facility] -s/p left total knee arthroplasty on 04/22/24 -currently taking oxycodone for pain, prescribed by orthopedist -continue following treatment plan per [facility] provider -continue working on weight loss -currently taking oxycodone for pain, prescribed by [facility] provider. Patient will let us know when he is ready to resume tramadol. Assessment & Plan (08/18/2023 7:42 AM EST): -Possibly overuse due to chronic right knee pain -Followed by [facility] provider, upcoming appt. -Continue working on weight loss Assessment & Plan (03/18/2023 4:27 PM EDT): -Possibly overuse due to chronic right knee pain -Followed by [facility] provider, upcoming appt. -Continue working on weight loss Assessment & Plan (12/31/2022 4:16 PM EDT): -Possibly overuse due to chronic right knee pain -Followed by [facility] provider, upcoming appt. -Continue working on weight loss Assessment & Plan (08/11/2022 6:11 AM EST): -Possibly overuse due to chronic right knee pain -Followed by [facility] provider, upcoming appt. -Continue working on weight loss Enlarged tonsils 08/10/2022 Assessment & Plan (08/10/2022 6:53 PM EST): -in a setting of KOBY -upcoming appt with ENT Recurrent otitis media 08/07/2022 Assessment & Plan (08/10/2022 6:54 PM EST): -Hx PE tube placement -Recent otitis media was treated with amoxicillin successfully -Recommend to discuss with ENT Allergic rhinitis 08/07/2022 Overview (01/22/2023): Differential is viral but more likely allergy from working in his yard. Will take cetrizine for a few weeks. Assessment & Plan (08/30/2024 3:39 PM EST): - continue loratadine and fluticasone nasal - reminded about PFT before starting Xolair which was Dr. Day's plan Assessment & Plan (11/27/2023 2:43 PM EDT): - continue loratadine and fluticasone nasal - reminded about PFT before starting Xolair which was Dr. Day's plan Assessment & Plan (08/18/2023 7:46 AM EST): - continue loratadine and montelukast - continue irpatropium nasal spray Assessment & Plan (03/18/2023 4:25 PM EDT): - continue loratadine and montelukast - continue Atrovent nasal spray Assessment & Plan (01/22/2023 3:57 PM EDT): Differential is viral but more likely allergy from working in his yard. Will take cetrizine for a few weeks. Assessment & Plan (12/31/2022 4:23 PM EDT): - continue loratadine and montelukast Assessment & Plan (11/26/2022 11:02 AM EDT): - continue loratadine and montelukast Chronic pain syndrome 08/07/2022 Assessment & Plan (08/30/2024 3:23 PM EST): - continue judicious use of tramadol under P D DRIVER agreement Assessment & Plan (03/18/2023 4:31 PM EDT): - continue judicious use of tramadol under P D DRIVER agreement Assessment & Plan (11/26/2022 10:56 AM EDT): - continue judicious use of tramadol under P D DRIVER agreement Recurrent ventral incisional hernia 08/07/2022 Assessment & Plan (11/26/2022 11:00 AM EDT): -Followed by Dr. Nowak, referred to [facility], seen in October 2022 -Hx diverticulitis and perforated sigmoid colon requiring colectomy and end colostomy in 2015 -Reversal of colostomy in 2017 -Incisional hernia repair x 3 -Pt was recommended to continue working on weight reduction, likely to have an open hernia repair. -Follow up with [facility] / [facility] surgeon in Apr 2023 Assessment & Plan (08/07/2022 4:53 AM EST): -Followed by Dr. Nowak -Hx diverticulitis and perforated sigmoid colon requiring colectomy and end colostomy in 2015 -Reversal of colostomy in 2017 -Incisional hernia repair x 3 -[facility] be referred [facility] -Continue working on weight loss Class 3 severe obesity due t o excess calories with serious comorbidity and body mass index (BMI) of 50.0 to 59.9 in adult 08/07/2022 Assessment & Plan (08/30/2024 3:38 PM EST): -Continue working on lifestyle modification -Semaglutide was initially prescribed -Changing to Zepbound -Recommended to try another weight management clinic, such as [facility] Assessment & Plan (06/02/2024 5:38 PM EDT): -Continue working on lifestyle modification -Semaglutide was prescribed in November 2023, but patient has not received it yet; will resend to [facility] pharmacy -Recommended to try another weight management clinic, such as [facility] [place] Assessment & Plan (11/27/2023 2:46 PM EDT): -Pt was interested in seeing a [facility] rental clerk, and was referred -Continue working on lifestyle modification -[facility] behavioral health care manager recommended semaglutide for the patient and it was prescribed. Patient still has not received it yet. Re-Rx. Assessment & Plan (08/18/2023 7:45 AM EST): Pt was interested in seeing a [facility] boat rental clerk, and was referred Continue working on lifestyle modification Patient's behavioral health care manager from [facility] recommended Zafar. The script was sent. Assessment & Plan (03/18/2023 4:26 PM EDT): Pt is interested in seeing a [facility] rental clerk Assessment & Plan (08/07/2022 4:53 AM EST): -Following with Surgical Weight Loss program at [facility] -Continue working on lifestyle modifications KOBY (obstructive sleep apnea) 08/07/2022 Assessment & Plan (08/30/2024 3:23 PM EST): -Most recent Sleep Study 10/2021. -Severe KOBY with CPAP 11cm H2O. -Continue using CPAP to improve adherence. Assessment & Plan (06/02/2024 5:20 PM EDT): -Most recent Sleep Study 10/2021. -Severe KOBY with CPAP 11cm H2O. -Continue using CPAP to improve adherence. Assessment & Plan (08/18/2023 7:38 AM EST): -Most recent Sleep Study 10/2021. -Severe KOBY with CPAP 11cm H2O. -Continue using CPAP to improve adherence. Assessment & Plan (03/18/2023 4:31 PM EDT): -Most recent Sleep Study 10/2021. -Severe KOBY with CPAP 11cm H2O. -Continue using CPAP to improve adherence. Assessment & Plan (11/26/2022 10:56 AM EDT): -Most recent Sleep Study 10/2021. -Severe KOBY with CPAP 11cm H2O. -Continue using CPAP to improve adherence. Assessment & Plan (08/07/2022 4:32 AM EST): -Most recent Sleep Study 10/2021. -Severe KOBY with CPAP 11cm H2O. Pt is still using old CPAP and symptomatic. -Will check status of new CPAP machine. -Continue using CPAP to improve adherence. Primary osteoarthritis of right knee 08/07/2022 Assessment & Plan (08/30/2024 3:35 PM EST): -Followed by [facility] provider -Octavio IV medial and patellofemoral arthritis. -Recommended to lose weight, until 295 lbs, before considering a surgery / TKA. Assessment & Plan (08/18/2023 7:42 AM EST): -Followed by [facility] provider -Octavio IV medial and patellofemoral arthritis. -Recommended to lose weight, until 295 lbs, before considering a surgery / TKA. Assessment & Plan (03/18/2023 4:28 PM EDT): -Followed by [facility] provider -Octavio IV medial and patellofemoral arthritis. -Recommended to lose weight, until 295 lbs, before considering a surgery / TKA. Assessment & Plan (12/31/2022 4:22 PM EDT): -Followed by [facility] provider -Octavio IV medial and patellofemoral arthritis. -Recommended to lose weight, until 295 lbs, before considering a surgery / TKA. Assessment & Plan (08/07/2022 4:28 AM EST): -Followed by [facility] provider -Octavio IV medial and patellofemoral arthritis. -Recommended to lose weight, until 295 lbs, before considering a surgery / TKA. Chronic idiopathic gout of foot 08/07/2022 Assessment & Plan (11/27/2023 2:35 PM EDT): -Following with [employer] [facility], last seen on 03/30/22 & 04/26/22 for elevated ESR / CRP, weakly (+) KHADRA and Polyarthralgia. -continue Allopurinol and Colchicine -cont current medications. Assessment & Plan (08/18/2023 7:43 AM EST): -Following with [employer] [facility], last seen on 03/30/22 & 04/26/22 for elevated ESR / CRP, weakly (+) KHADRA and Polyarthralgia. -continue Allopurinol and Colchicine -cont current medications. Assessment & Plan (03/18/2023 4:27 PM EDT): -Following with [employer] [facility], last seen on 03/30/22 & 04/26/22 for elevated ESR / CRP, weakly (+) KHADRA and Polyarthralgia. -continue Allopurinol and Colchicine -cont current medications. Assessment & Plan (12/31/2022 4:22 PM EDT): -Following with [employer] [facility], last seen on 03/30/22 & 04/26/22 for elevated ESR / CRP, weakly (+) KHADRA and Polyarthralgia. -started on Allopurinol and Colchicine -cont current medications. Assessment & Plan (08/07/2022 4:31 AM EST): -Following with [employer] [facility], last seen on 03/30/22 & 04/26/22 for elevated ESR / CRP, weakly (+) KHADRA and Polyarthralgia. -started on Allopurinol and Colchicine -cont current medications. Primary hypertension 08/07/2022 Assessment & Plan (08/30/2024 3:34 PM EST): -Goal BP < 140/90 per JNC-8; < 130/80 (Tx threshold 140/90) per ACC/AHA guideline -Continue working on lifestyle modifications -Current medications on the list: hydrochlorothiazide 25 mg daily and Losartan 25 mg daily -Previous medications: lisinopril 10 mg daily; amlodipine 5 mg daily -Check home BP -Advised to reschedule CDTM appointment -Follow up in 3 mo or sooner if any problem arises Assessment & Plan (06/29/2024 3:20 PM EST): Uncontrolled today due to not having hydrochlorothiazide filled for about 2mo. Refill for hydrochlorothiazide sent to pharmacy, continue losartan same dose Monitor BP t home three times per week and call back prn if continues to be above 160/95, otherwise fu with PCP. Assessment & Plan (06/02/2024 5:34 PM EDT): -Goal BP < 140/90 per JNC-8; < 130/80 (Tx threshold 140/90) per ACC/AHA guideline -Continue working on lifestyle modifications -Current medications on the list: hydrochlorothiazide 25 mg daily and Losartan 25 mg daily -Previous medications: lisinopril 10 mg daily; amlodipine 5 mg daily -Check home BP -Advised to reschedule CDTM appointment -Follow up in 3 mo or sooner if any problem arises Assessment & Plan (11/27/2023 2:33 PM EDT): -Goal BP < 140/90 per JNC-8; < 130/80 (Tx threshold 140/90) per ACC/AHA guideline -Continue working on lifestyle modifications -Current medications on the list: hydrochlorothiazide 25 mg daily and Losartan 25 mg daily -Previous medications: lisinopril 10 mg daily; amlodipine 5 mg daily -Check home BP -Advised to reschedule CDTM appointment -Follow up in 3 mo or sooner if any problem arises Assessment & Plan (08/18/2023 7:41 AM EST): -Goal BP < 140/90 per JNC-8; < 130/80 (Tx threshold 140/90) per ACC/AHA guideline -Continue working on lifestyle modifications -Current medications on the list: hydrochlorothiazide 25 mg daily and Losartan 25 mg daily -Previous medications: lisinopril 10 mg daily; amlodipine 5 mg daily -Check home BP -Advised to reschedule CDTM appointment -Follow up in 3-6 mo or sooner if any problem arises Assessment & Plan (03/18/2023 4:28 PM EDT): -Goal BP < 140/90 per JNC-8; < 130/80 (Tx threshold 140/90) per ACC/AHA guideline -Continue working on lifestyle modifications -Current medications on the list: hydrochlorothiazide 25 mg daily and Losartan 25 mg daily -Previous medications: lisinopril 10 mg daily; amlodipine 5 mg daily -Check home BP -Follow up in 3-6 mo or sooner if any problem arises Assessment & Plan (12/31/2022 4:21 PM EDT): -Goal BP < 140/90 per JNC-8; < 130/80 (Tx threshold 140/90) per ACC/AHA guideline -Continue working on lifestyle modifications -Current medications on the list: hydrochlorothiazide 25 mg daily and Losartan 25 mg daily -Previous medications: lisinopril 10 mg daily; amlodipine 5 mg daily -Check home BP -Follow up in 3-6 mo or sooner if any problem arises Assessment & Plan (11/26/2022 11:01 AM EDT): -Goal BP < 140/90 per JNC-8; < 130/80 (Tx threshold 140/90) per ACC/AHA guideline -Continue working on lifestyle modifications -Current medications on the list: hydrochlorothiazide 25 mg daily -Add losartan 25 mg daily -Previous medications: lisinopril 10 mg daily; amlodipine 5 mg daily -Check home BP -Follow up in 3-6 mo or sooner if any problem arises Assessment & Plan (08/10/2022 6:55 PM EST): -Goal BP < 140/90 per JNC-8; < 130/80 (Tx threshold 140/90) per ACC/AHA guideline -Continue working on lifestyle modifications -Current medications on the list: hydrochlorothiazide 25 mg daily -Previous medications: lisinopril 10 mg daily; amlodipine 5 mg daily -Check home BP -Follow up in 3-6 mo or sooner if any problem arises Asthma 07/23/2022 Assessment & Plan (08/30/2024 3:34 PM EST): -Following with Dr. Day, [facility], last seen in Jun 2024 -Last PFT was normal, updating soon -Pt has had multiple exacerbations requiring systemic steroid x 4 in Spring 2022 since he had COVID in Aug 2022 -Multiple CXRs done in Spring 2022, which were normal -Last asthma exacerbation in Aug 2023, treated with prednisone and azithromycin -Optimize Tx asthma and allergic rhinitis -Continue budesonide / formoterol (Symbicort) -Continue umeclidinium -Continue montelukast 10 mg at bedtime -Continue albuterol HFA prn -Continue DuoNeb prn -Continue azithromycin MWF. -Plant to start Xolair by Dr. Day per note in Aug 2023. Uncertain if it was started. Treatment hx: fluticasone propionate / salmeterol (Wixela) was changed to budesonide / formoterol (Symbicort) in Aug 2023, but patient prefers Wixela, and has been using them. Advised to contact his material flow analyst's office for reviewing medications Assessment & Plan (06/02/2024 5:33 PM EDT): -Following with Dr. Day, [facility], last seen in Aug 2023 -Last PFT was normal, updating soon -Pt has had multiple exacerbations requiring systemic steroid x 4 in Spring 2022 since he had COVID in Aug 2022 -Multiple CXRs done in Spring 2022, which were normal -Last asthma exacerbation in Aug 2023, treated with prednisone and azithromycin -Optimize Tx asthma and allergic rhinitis -Continue budesonide / formoterol (Symbicort) -Continue umeclidinium -Continue montelukast 10 mg at bedtime -Continue albuterol HFA prn -Continue DuoNeb prn -Continue azithromycin MWF. -Plant to start Xolair by Dr. Day per note in Aug 2023. Uncertain if it was started. Treatment hx: fluticasone propionate / salmeterol (Wixela) was changed to budesonide / formoterol (Symbicort) in Aug 2023, but patient prefers Wixela, and has been using it. Assessment & Plan (11/27/2023 2:32 PM EDT): -Following with Dr. Day, [facility], last seen in Aug 2023 -Last PFT was normal, updating soon -Pt has had multiple exacerbations requiring systemic steroid x 4 in Spring 2022 since he had COVID in Aug 2022 -Multiple CXRs done in Spring 2022, which were normal -Last asthma exacerbation in Aug 2023, treated with prednisone and azithromycin -Optimize Tx asthma and allergic rhinitis -Continue fluticasone / salmeterol 500/50 bid -Continue umeclidinium -Continue montelukast 10 mg at bedtime -Continue albuterol HFA prn -Continue DuoNeb prn -Plan to start Xolair; contacted [facility] and requested PFT arrangement. Treatment hx: fluticasone propionate / salmeterol (Wixela) was changed to budesonide / formoterol (Symbicort) in Aug 2023, but patient prefers Wixela, and has been using it. Assessment & Plan (08/18/2023 7:40 AM EST): -Following with Dr. Day, [facility] pulmonology, last seen in February 2023 -Last PFT was normal, updating soon -Pt has had multiple exacerbations requiring systemic steroid x 4 in Spring 2022 since he had COVID in Aug 2022 -Multiple CXRs done in Spring 2022, which were normal -Optimize Tx asthma and allergic rhinitis -Continue fluticasone / salmeterol 500/50 bid -Continue umeclidinium -Continue montelukast 10 mg at bedtime -Continue albuterol HFA prn -Continue DuoNeb prn Assessment & Plan (03/18/2023 4:34 PM EDT): -Following with Dr. Day, [facility], last seen in February 2023 -Last PFT was normal, updating soon -Pt has had multiple exacerbations requiring systemic steroid x 4 in Spring 2022 since he had COVID in Aug 2022 -Multiple CXRs done in Spring 2022, which were normal -Optimize Tx asthma and allergic rhinitis -Continue fluticasone / salmeterol 500/50 bid -Continue Incruse -Continue montelukast 10 mg at bedtime -Continue albuterol HFA prn -Continue DuoNeb prn Assessment & Plan (12/31/2022 4:03 PM EDT): -Last PFT was normal -Pt has had multiple exacerbations requiring systemic steroid x 4 in last 1 mo -Multiple CXRs done in last 1 month, and all normal -Optimize Tx asthma and allergic rhinitis -Continue fluticasone / salmeterol 500/50 bid -Continue montelukast 10 mg at bedtime -Continue albuterol neb and HFA prn Referred to Pulmonology Service -Appt on 01/15/23, patient aware Assessment & Plan (11/26/2022 10:55 AM EDT): -Last PFT was normal -Pt has had multiple exacerbations requiring systemic steroid x 4 in last 1 mo -Multiple CXRs done in last 1 month, and all normal -Optimize Tx asthma and allergic rhinitis -Continue fluticasone / salmeterol 500/50 bid -Continue montelukast 10 mg at bedtime -Continue albuterol neb and HFA prn -Referring to pulmonology service to evaluate for dyspnea. DDx includes uncontrolled asthma, COPD, chronic eosinophilic pneumonia, or Eosinophilic granulomatosis with polyangiitis (Churg-Alysha) Assessment & Plan (08/11/2022 6:17 AM EST): -Last PFT was normal -Pt has had multiple exacerbations requiring systemic steroid x 4 in last 1 mo -Multiple CXRs done in last 1 month, and all normal -Optimize Tx asthma and allergic rhinitis -Continue fluticasone / salmeterol 500/50 bid -Continue montelukast 10 mg at bedtime -Continue albuterol neb and HFA prn -Consider pulmonology referral Chronic back pain 05/09/2018 Assessment & Plan (08/30/2024 3:40 PM EST): -Seen by neurosurgeon and was recommended to lose weight before scheduling a decompression surgery -Followed by [facility] pain management for injection treatment -Treatment Hx: He has tried topiramate and gabapentin, for neuropathic pain, but were ineffective. Pt has tried MEDINA-2, NSAIDs other than ibuprofen, APAP, and muscle relaxants, which did not give pt's desired pain relief. Pt has Hx not following P D DRIVER agreement and was receiving opioid analgesics from other provider. He is aware of the consequence if he does not follow P D DRIVER agreement. -Continue judicious and responsible use of tramadol under P D DRIVER agreement -Continue judicious use of ibuprofen (Pt verbalized understanding that ibuprofen should not be taken daily or long-term) -s/p posterior laminectomy, decompression, transforaminal interbody fusion L5-S1 on 12/02/23 -continue judicious use of tramadol -Rx tizanidine Assessment & Plan (06/02/2024 5:39 PM EDT): -Seen by neurosurgeon and was recommended to lose weight before scheduling a decompression surgery -Followed by [facility] pain management for injection treatment -Treatment Hx: He has tried topiramate and gabapentin, for neuropathic pain, but were ineffective. Pt has tried MEDINA-2, NSAIDs other than ibuprofen, APAP, and muscle relaxants, which did not give pt's desired pain relief. Pt has Hx not following P D DRIVER agreement and was receiving opioid analgesics from other provider. He is aware of the consequence if he does not follow P D DRIVER agreement. -Continue judicious and responsible use of tramadol under P D DRIVER agreement -Continue judicious use of ibuprofen (Pt verbalized understanding that ibuprofen should not be taken daily or long-term) -s/p posterior laminectomy, decompression, transforaminal interbody fusion L5-S1 on 12/02/23 Assessment & Plan (11/27/2023 2:38 PM EDT): -Seen by neurosurgeon and was recommended to lose weight before scheduling a decompression surgery -Followed by [facility] pain management for injection treatment -Treatment Hx: He has tried topiramate and gabapentin, for neuropathic pain, but were ineffective. Pt has tried MEDINA-2, NSAIDs other than ibuprofen, APAP, and muscle relaxants, which did not give pt's desired pain relief. Pt has Hx not following P D DRIVER agreement and was receiving opioid analgesics from other provider. He is aware of the consequence if he does not follow P D DRIVER agreement. -Continue judicious and responsible use of tramadol under P D DRIVER agreement -Continue judicious use of ibuprofen (Pt verbalized understanding that ibuprofen should not be taken daily or long-term) -Anticipating transforaminal interbody fusion L5-S1 on 12/02/23 Assessment & Plan (03/18/2023 4:14 PM EDT): -Seen by neurosurgeon and was recommended to lose weight before scheduling a decompression surgery -Followed by [facility] pain management for injection treatment -Treatment Hx: He has tried topiramate and gabapentin, for neuropathic pain, but were ineffective. Pt has tried MEDINA-2, NSAIDs other than ibuprofen, APAP, and muscle relaxants, which did not give pt's desired pain relief. Pt has Hx not following P D DRIVER agreement and was receiving opioid analgesics from other provider. He is aware of the consequence if he does not follow P D DRIVER agreement. -Continue judicious and responsible use of tramadol under P D DRIVER agreement -Continue judicious use of ibuprofen (Pt verbalized understanding that ibuprofen should not be taken daily or long-term) Assessment & Plan (08/11/2022 6:08 AM EST): -Seen by neurosurgeon and was recommended to lose weight before scheduling a decompression surgery -Followed by [facility] pain management for injection treatment -Treatment Hx: He has tried topiramate and gabapentin, for neuropathic pain, but were ineffective. Pt has tried MEDINA-2, NSAIDs other than ibuprofen, APAP, and muscle relaxants, which did not give pt's desired pain relief. Pt has Hx not following P D DRIVER agreement and was receiving opioid analgesics from other provider. He is aware of the consequence if he does not follow P D DRIVER agreement. -Continue judicious and responsible use of tramadol under P D DRIVER agreement -Continue judicious use of ibuprofen (Pt verbalized understanding that ibuprofen should not be taken daily or long-term) Continuous opioid dependence 05/09/2018 Overview (08/11/2022): Tramadol under P D DRIVER Deviated nasal septum 05/09/2018 Gastroesophageal reflux disease 05/09/2018 Assessment & Plan (11/27/2023 2:34 PM EDT): - Rx omeprazole - lifestyle modification History of colectomy 05/09/2018 Overview (07/25/2023): -Currently followed by [facility] [place] Dr. Now[place] Hypothyroidism 05/09/2018 Assessment & Plan (08/30/2024 3:37 PM EST): -Current replacement: levothyroxine 50 mcg daily, questionable medication adherence -Last TSH in 2023. Therapeutic. -Recheck thyroid function test and adjust dose accordingly -Emphasized the importance of adherence Assessment & Plan (06/02/2024 5:48 PM EDT): -Current replacement: levothyroxine 50 mcg daily, questionable medication adherence -Last TSH in November 2023. Therapeutic. -Recheck thyroid function test and adjust dose accordingly -Emphasized the importance of adherence Assessment & Plan (11/27/2023 2:37 PM EDT): -Current replacement: levothyroxine 50 mcg daily, questionable medication adherence -Last TSH on Aug 2023, subtherapeutic in a setting of poor adherence -Recheck thyroid function test and adjust dose accordingly -Emphasized the importance of adherence Assessment & Plan (08/18/2023 7:44 AM EST): -Current replacement: levothyroxine 75 mcg daily, questionable medication adherence -Last TSH: 0.17 on 05/29/23, 2.61 on 03/12/23 -Continue current replacement -Recheck thyroid function test Assessment & Plan (03/18/2023 4:26 PM EDT): -Current replacement: levothyroxine 75 mcg daily -Last TSH: 2.61 on 03/12/23 -Continue current replacement Assessment & Plan (12/31/2022 4:23 PM EDT): -Current replacement: levothyroxine 75 mcg daily -Last TSH: 3.78 on 05/01/22 -Continue current replacement Assessment & Plan (08/11/2022 6:13 AM EST): -Current replacement: levothyroxine 75 mcg daily -Last TSH: 3.78 on 05/01/22 -Continue current replacement Mood disorder 05/09/2018 Assessment & Plan (08/11/2022 6:15 AM EST): -Continue escitalopram 10 mg daily Resolved Problems Problem Noted Date Diagnosed Date Resolved Date Acute non intractable tension-type headache 06/29/2024 08/30/2024 Assessment & Plan (06/29/2024 3:23 PM EST): It seems to be related to HTN as well. Advised to take tylenol prn, apply heat to affected area. Restart hydrochlorothiazide as below Lumbar nerve root impingement 09/10/2023 09/10/2023 06/02/2024 Subacute sinusitis 12/31/2022 Assessment & Plan (12/31/2022 4:26 PM EDT): S/P Treatment for Acute Sinusitis with Augmentin -will treat with Doxycycline -will evaluate with Sinus CT Scan Asthma exacerbation, non-all ergic, moderate persistent 09/17/2022 11/26/2022 COVID-19 08/07/2022 11/26/2022 Recurrent otitis externa 08/07/2022 Abdominal hernia 05/09/2018 08/07/2022 Encounters Date Type Department Care Team Description 11/17/2024 Refill [facility] [address] [place], [place] [id number] Renee Vazquez, gas cutter bilateral low back pain, unspecified whether sciatica present; Chronic pain of left knee 11/17/2024 Telephone [facility] [address] [place] [address] Patricia Berry MD Med Refill 11/16/2024 Refill [facility] [address] [facility] [place] [address] Patricia Berry MD 11/06/2024 Refill [facility] [address] [place] [address] Patricia Berry MD Chronic bilateral low back pain, unspecified whether sciatica present; Chronic pain of left knee 10/27/2024 1:30 PM EDT Clinical Support [facility] [address] [place] [address] Renee Vazquez, gas cutter pain syndrome (Primary Dx); Long-term current use of opiate analgesic 10/27/2024 Telephone [facility] [address] [facility] [place] [address] Renee Vazquez RN 10/27/2024 Travel 10/23/2024 Refill [facility] [address] [facility] [address] Patricia Berry MD Chronic bilateral low back pain, unspecified whether sciatica present; Chronic pain of left knee 10/21/2024 Travel 10/21/2024 Telephone [facility] [address] [facility] [place] [address] Renee Vazquez RN 10/21/2024 Telephone [facility] [address] [facility] [place] [address] Patricia Berry MD Appointment Request 10/08/2024 Refill [facility] [address] [facility] [place] [address] Patricia Berry MD Moderate persistent asthma without complication; Chronic pain syndrome 10/08/2024 Travel 10/08/2024 Refill [facility] [address] [place] [address] Patricia Berry MD Chronic bilateral low back pain, unspecified whether sciatica present; Chronic pain of left knee 10/08/2024 Telephone [facility] [address] [facility] [address] Patricia Berry MD Med Refill 09/25/2024 Travel 09/25/2024 Refill [facility] [address] [place] [address] Patricia Berry MD Chronic bilateral low back pain, unspecified whether sciatica present; Chronic pain of left knee 09/10/2024 Telephone [facility] [address] [place] [address] Renee Vazquez RN 09/10/2024 Refill [facility] [address] [place] [address] Stephanie Ny MD Chronic pain syndrome 09/10/2024 Refill [facility] [address] [place] [address] Patricia Berry MD Chronic bilateral low back pain, unspecified whether sciatica present; Chronic pain of left knee; Chronic pain syndrome 09/08/2024 Refill [facility] [address] [place] [address] Renee Vazquez RN 09/08/2024 Telephone [facility] [address] [place] [address] Patricia Berry MD Med Refill 08/25/2024 Refill [facility] [address] [place] [address] Patricia Berry MD Chronic bilateral low back pain, unspecified whether sciatica present; Chronic pain of left knee 08/20/2024 10:30 AM EST Office Visit [facility] [address] [place] [address] Patricia Berry MD KOBY (obstructive sleep apnea) (Primary Dx); Dietary counseling; Exercise counseling; Class 3 severe obesity due to excess calories with serious comorbidity and body mass index (BMI) of 50.0 to 59.9 in adult ([facility]); Chronic pain syndrome; Moderate persistent asthma without complication; Primary hypertension; Primary osteoarthritis of right knee; Arthritis of knee; Chronic pain of left knee; Hypothyroidism, unspecified type; Low back pain of multiple sites of spine with sciatica; Allergic rhinitis, unspecified seasonality, unspecified trigger; Chronic bilateral low back pain, unspecified whether sciatica present; Dyslipidemia 08/20/2024 Travel from Last 3 Months Immunizations Name Administration Dates Next Due Influenza Injectable Quadriv alant Preservative Free IIV4 MDCK 05/24/2023 Influenza injectable quadrivalent preservative f ree 06/27/2021,09/04/2016 Influenza, IIV3, injectable 06/06/2010 Pneumococcal Conjugate PCV 20 12/31/2022 TD (adult), 2 Lf tetanus tox oid, preservative free, adsorbed 10/03/2018 Tdap 01/25/2017,03/17/2010 Zoster, Recombinant 05/24/2023 Social History Tobacco Use Types Packs/Day Years Used Date Smoking Tobacco: Never Passive Smoke Exposure: Never Smokeless Tobacco: Never Tobacco Cessation:Counseling Given: Not Answered Alcohol Use Standard Drinks/Week Comments Never 0 [...] not to disclose 2021 10:27 AM EDT Last Filed Vital Signs Vital Sign Reading Time Taken Comments Blood Pressure 120/92 08/20/2024 10:38 AM EST Pulse 64 08/20/2024 10:38 AM EST Temperature 35.6 ??C (96.1 ??F) 08/20/2024 10:[address] Respiratory Rate 19 08/20/2024 10:38 AM EST Oxygen Saturation 95% 08/20/2024 10:38 AM EST Inhaled Oxygen Concentration - - Weight 160 kg (352 lb) 08/20/2024 10:38 AM EST Height 177.8 cm (5' 10 ) 06/29/2024 2:56 PM EST Body Mass Index 50.51 06/29/2024 2:56 PM EST Plan of Treatment Upcoming Encounters Date Type Department Care Team (Late st Contact Info) Description 12/08/2024 3:45 PM EDT Office Visit [facility] [address] [place] [phone] Patricia Berry MD [address] [place] [phone] 01/05/2025 11:00 AM EDT Office Visit [address] [address] Health Maintenance Due Date Last Done Comments Family Planning (PISQ) 12/27/1987 Hepatitis B Vaccines (1 of 3 - 19+ 3-dose series) 12/27/1991 Zoster Vaccines (2 of 2) 07/19/2023 05/24/2023 COVID-19 Vaccine (2023- season) 2024 07/21/2021, 06/29/2021 Influenza Vaccine (#1) 2024 3, 06/27/2021, 09/04/2016, Additional history exists Depression Screening 11/26/2024 11/27/2023, 11/27/19 24 SDOH Screening 11/26/2024 11/27/2023 Alcohol/Substance Use Screening 06/02/2025 06/02/2024 Tobacco Screening 08/30/2025 08/30/2024 DTaP/Tdap/Td Vaccines (4 - Td or Tdap) 10/03/2028 10/03/2018, 01/25/2017, 03/17/2010 Lipid Panel 06/19/2029 06/19/2024, 11/10, 02/26/2023, Additional history exists RSV Patients and Patients Aged 60 years or older (1 - 1-dose 75+ series) 12/27/2047 HIV Screening Completed 12/31/2022, 03/12, 01/23/2022 Pneumococcal Vaccine: 50+ Years Completed 12/31/2022 Hepatitis C Screening Completed 07/02/2024 , 12/31/2022, 03/30/2022, Additional history exists HIB Vaccines Aged Out No longer eligi ble based on patient's age to complete this topic HPV Vaccines Aged Out No longer eligi ble based on patient's age to complete this topic Hepatitis A Vaccines Aged Out No long er eligible based on patient's age to complete this topic IPV Vaccines Aged Out No longer eligi ble based on patient's age to complete this topic Meningococcal Vaccine Aged Out No hugh rabia eligible based on patient's age to complete this topic RSV under 20 months Aged Out No longe r eligible based on patient's age to complete this topic Rotavirus Vaccines Aged Out No longer eligible based on patient's age to complete this topic Goals Goal Patient Goal Type Associated Problems Recent Progress Patient-Stated? Author Blood Pressure < 140/90 Blood Pressure 120/92( 025 10:38 AM EST) Craig Ramsey, Caroline Procedures Procedure Name Priority Date/Time Associated Diagnosis Comments POCT KIRSTIE-14 URINE DRUG SCREEN Routine 10/27/2024 1:29 PM EDT Long-term current use of opiate analgesic Chronic pain syndrome HEPATITIS C AB W/REFL TO HCV RNA, QN, PCR Routine 07/02/2024 2:46 PM EST Transaminitis LIPID PANEL WITH REFLEX TO DIRECT LDL Routine 06/19/2024 2:36 PM EST Dyslipidemia HIV 1/2 ANTIGEN/ANTIBODY, FOURTH GENERATION W/RFL Routine 12/31/2022 3:55 PM EDT from Last 3 Months or Most Recently Relevant to Health Maintenance Results * POCT KIRSTIE-14 Urine Drug Screen (10/27/2024 1:29 PM EDT) Urine Urine specimen obtained by clean catch procedure / Unknown 10/27/2024 1:29 PM EDT Narrative Renee Vazquez RN - 10/27/2024 1:29 PM EDT negative AMP, BAR, BUP, BZO, JANET, FTY, MDMA, MET, MOP, MTD, OXY, PCP, TCA, THC. Lot# [id number] Exp: 03-31-26 Patricia Berry MD POINT OF CARE TEST ENTER/EDIT OR DERABLES Final Result * Hepatitis C Antibody with Reflex to HCV, RNA, Quantitative, Real-Time PCR (07/02/2024 2:46 PM EST) Hepatitis C Antibody Nonreactive Nonreactive [facility] Comment:Antibodies to HCV no t detected; does not exclude early acuteHCV infection. Blood Venous blood specimen / Unknown 07/02/2024 2:46 PM EST 07/02/2024 2:46 PM EST Patricia Berry MD LAB BLOOD ORDERABLES Final Resul t [facility] [address] [place] [address] [phone] * (ABNORMAL) Lipid Panel with Reflex to Direct LDL (06/19/2024 2:36 PM EST) Triglycerides 143 <150 mg/dL [facility] Comment:Desirable Triglyceri de: less than 150 mg/dLBorderline High Triglyceride 150-199 mg/dLHigh Triglyceride: 200-499 mg/dLVery High Triglyceride: greater than or equal to 5OO mg/dL Cholesterol 224(H) <200 mg/dL [facility] Comment:Desirable Cholestero l: less than 200 mg/dLBorderline High Cholesterol: 200-239 mg/dLHigh Cholesterol: greater than 239 mg/dL LDL Cholesterol Calculated 135(H) <100 mg/dL [facility] Comment:Desirable LDL: less than 100 mg/dLNear Optimal/Above Optimal LDL: 110- 129 mg/dLBorderline High LDL: 130-159 mg/dLHigh LDL: 160-189 mg/dLVery High LDL: greater than or equal to 190 mg/dL HDL Cholesterol 61 >40 mg/dL [facility] Comment:Desirable HDL: great er than 40 mg/dL Note: This HDL assay may give artificially low results in patients with liver disease. Blood 06/19/2024 2:36 PM EST 06/19/2024 2:36 PM EST us Patricia Berry MD LAB BLOOD ORDERABLES Final Resul t [facility] [address] [place] [phone] * HIV-1/2 Antigen and Antibodies, Fourth Generation, with Reflexes (12/31/2022 3:55 PM EDT) Pathologist [facility] HIV Antigen/Antibody, 4th Generation NON-REAC TIVE NON-REAC TIVE [facility] Comment: HIV-1 antigen and HIV-1/HIV-2 antibodies were not detected. There is no laboratory evidence of HIV infection. PLEASE NOTE: This information has been disclosed to you from records whose confidentiality may be protected by state law. ??If your state requires such protection, then the state law prohibits you from making any further disclosure of the information without the specific written consent of the person to whom it pertains, or as otherwise permitted by law. A general authorization for the release of medical or other information is NOT sufficient for this purpose. ?? For additional information please refer to http://education.Tray.[employer]/faq/FNH794 (This link is being provided for informational/ educational purposes only.) The performance of this assay has not been clinically validated in patients less than 2 years old. 12/31/2022 3:55 PM EDT 12/31/2022 3:56 PM EDT Patricia Berry MD LAB BLOOD ORDERABLES Final Resul t [facility] [address] [place] [address] [facility] [address] [place] [phone] from Last 3 Months or Most Recently Relevant to Health Maintenance Insurance [facility] Care Teams Certified Substance Abuse Counselor Relationship Specialty Start Date End Date Patricia Berry MD [address] [place], [place] PCP - General Family Medicine 05/11/21 Craig Ochoa, PharmD [address] [place] [phone] Pharmacist Internal Medicine 05/24/23
--- OUTSIDE RECORDS SUMMARY | 2024-11-17 17:11 | XMS_ITS | Encounter Summary ---
Author Organization [employer] Address 75 [facility] 7t [place] [address] Care Team Providers Care Foil Operator Name Role Phone Patricia Berry MD Primary Care Provider [phone] Craig Ochoa PharmD Unavailable [phone] Reason for Visit * Reason Onset Date Comments triage 08/20/2022 Encounter Details Date Type Department Care Team (Late st Contact Info) Description 08/20/2022 Telephone [facility] [address] [place], [place] [phone] Patricia Berry MD 230 [place], [place] [phone] triage Social History Tobacco Use Types Packs/Day Years Used Date Smoking Tobacco: Never Smokeless Tobacco: Never Sex and Gender [...] suspected to have Coronavirus/COVID-19? No / Unsure 08/20/2022 3:47 PM EST documented as of this encounter Miscellaneous Notes * Telephone Encounter - Gypsy Camacho RN - 08/20/2022 3:43 PM EST Triage call Pt reports left earache. Pt reports having procedure to place tube in left ear. Now Pt reports pain in left ear, left side of face, cheek, jaw, eye and teeth with nasal congestion and drainage. Pt is neg for fever. Advised to be seen by provider in [facility] Today and Pt agreed. Insurance is verified as active prior to booking. Protocol Used: Earache (Adult) Protocol-Based Disposition: See in Office or Video Visit Today or Tomorrow Positive Triage Questions: * All other earaches (Exceptions: Earache lasting < 1 hour, and earache from air travel.) * Patient wants to be seen * All higher-acuity triage questions were negative Care Advice Discussed: * Pain Medicines * Pain Medicines - Extra Notes and Warnings * Apply Cold to the Area for Pain * Avoid Earplugs * Contagiousness * Reasons To Call Back - Earache last more than 1 hour - High fever, severe headache, or stiff neck occurs - You become worse * Telephone Encounter - Link Green - 08/20/2022 1:59 PM EST Symptoms: Earache, Sinus Symptoms Outcome: Schedule an urgent appointment (within 1 hour) or talk to a nurse or provider soon Reason: Severe pain now The caller accepted this outcome documented in this encounter Plan of Treatment Upcoming Encounters Date Type Department Care Team (Late st Contact Info) Description 12/08/2024 3:45 PM EDT Office Visit [facility] [address] [place] [address] Patricia Berry MD [address] [place] [address] 01/05/2025 11:00 AM EDT Office Visit [facility] [address] [place] [address] documented as of this encounter Visit Diagnoses Not on filedocumented in this encounter Care Teams Foil Operator Relationship Specialty Start Date End Date Patricia Berry MD [address] [place] [address] PCP - General Family Medicine 05/11/21 Craig Ochoa, PharmD [address] [place] [address] Pharmacist Internal Medicine 05/24/23 documented as of this encounter
--- OUTSIDE RECORDS SUMMARY | 2024-11-17 17:11 | XMS_ITS | Encounter Summary ---
Author Organization [employer] Address 75 [facility] 7t [place] [address] Care Team Providers Care Aircraft Engine Specialist Name Role Phone Patricia Berry MD Primary Care Provider [phone] Craig Ochoa PharmD Unavailable [phone] Reason for Visit * Reason Comments Med Refill Encounter Details Date Type Department Care Team (Late st Contact Info) Description 09/05/2023 Refill [facility] 230 [place] [address] Moses Tejada, BENNETT Acute mucoid otitis media [...] Description 12/08/2024 3:45 PM EDT Office Visit [facility] [address] [place] [address] Patricia Berry MD [address] [place] [address] 01/05/2025 11:00 AM EDT Office Visit [address] [address] documented as of this encounter Goals Goal Patient Goal Type Associated Problems Recent Progress Patient-Stated? Author Blood Pressure < 140/90 Blood Pressure 120/92( 025 10:38 AM EST) No Craig Ochoa, Caroline documented as of this encounter Visit Diagnoses Diagnosis Acute mucoid otitis media of both ears documented in this encounter Care Teams Aircraft Engine Specialist Relationship Specialty Start Date End Date Patricia Berry MD [address] [place] [address] PCP - General Family Medicine 05/11/21 Craig Ochoa, PharmD [address] [place] [address] Pharmacist Internal Medicine 05/24/23 documented as of this encounter
--- OUTSIDE RECORDS SUMMARY | 2024-11-17 17:11 | XMS_ITS | Encounter Summary ---
Author Organization [employer] Address 75 [facility] 7t [place] [address] Care Team Providers Care Flap Lining Binder Name Role Phone Patricia Berry MD Primary Care Provider [phone] Craig Ochoa PharmD Unavailable [phone] Reason for Visit * Reason Onset Date Comments Med Refill 10/08/2023 Encounter Details Date Type Department Care Team ([facility] st Contact Info) Description 10/08/2023 Telephone [facility] 230 [place], [place] [phone] Patricia Berry MD 230 [place], [place] [phone] Med Refill Social History Tobacco Use Types Packs/Day Years [...] AM EDT documented as of this encounter Miscellaneous Notes * Telephone Encounter - Kiarra Mata - 10/08/2023 10:47 AM EST TC from pt requesting medication refill. Medications needing refill : traMADol (Ultram) 50 MG tablet To be sent to: [facility]/pharmacy #[address] [place] [address] documented in this encounter Plan of Treatment Upcoming Encounters Date Type Department Care Team (Late st Contact Info) Description 12/08/2024 3:45 PM EDT Office Visit [facility] [address] [place] [phone] Patricia Berry MD [address] [place] [address] 01/05/2025 11:00 AM EDT Office Visit [facility] [address] [place] [address] documented as of this encounter Goals Goal Patient Goal Type Associated Problems Recent Progress Patient-Stated? Author Blood Pressure < 140/90 Blood Pressure 120/92( 025 10:38 AM EST) No Craig Ochoa, ShawnD documented as of this encounter Visit Diagnoses Not on filedocumented in this encounter Care Teams Flap Lining Binder Relationship Specialty Start Date End Date Patricia Berry MD [address] [place] [address] PCP - General Family Medicine 05/11/21 Craig Ochoa, PharmD [address] [place] [address] Pharmacist Internal Medicine 05/24/23 documented as of this encounter
--- OUTSIDE RECORDS SUMMARY | 2024-11-17 17:11 | XMS_ITS | Encounter Summary ---
Author Organization [employer] Address 75 [facility] 7t [place] [address] Care Team Providers Care Lacquer Spray Booth Operator Name Role Phone Patricia Berry MD Primary Care Provider [phone] Craig Ochoa PharmD Unavailable Reason for Referral * Consultation (Routine) - Closed Specialty Diagnoses / Procedures Referred By Contflores t Referred To Contact Chiropractic Medicine Diagnoses Chronic bilateral low back pain, unspecified whether sciatica present Low back pain of multiple sites of spine with sciatica Patricia Berry MD [address] [place] [address] Phone: tel: fax: [facility] [address] [place] [address] Phone: tel: fax: Referral ID Status Reason Start Date Expiration Date V isits Requested Visits Authorized [id number] Closed Specialty Services Required 10/02/2023 10/01/2024 1 1 Encounter Details Date Type Department Care Team (Late st Contact Info) Description 10/02/2023 Orders Only [facility] 230 [place] [address] Patricia Berry MD [address] [place] [address] Chronic bilateral low back pain, unspecified whether sciatica present (Primary Dx); Low back pain of multiple sites of spine with sciatica Social History Tobacco Use Types Packs/Day Years [...] Description 12/08/2024 3:45 PM EDT Office Visit [facility] [address] [place] [address] Patricia Berry MD [address] [place] [address] 01/05/2025 11:00 AM EDT Office Visit [facility] [address] [place] [address] Scheduled Referrals Name Type Priority Associated Diagnoses Orde r Schedule Referral to Chiropractic Outpatient Referral Routine Chronic bilateral low back pain, unspecified whether sciatica present Low back pain of multiple sites of spine with sciatica Expected: 10/02/2023 (Approximate), Expires: 10/02/2024 documented as of this encounter Goals Goal Patient Goal Type Associated Problems Recent Progress Patient-Stated? Author Blood Pressure < 140/90 Blood Pressure 120/92( 025 10:38 AM EST) No Craig Ochoa, Caroline documented as of this encounter Visit Diagnoses Diagnosis Chronic bilateral low back pain, unspecified whether sciatica present- Primary Low back pain of multiple sites of spine with sciatica documented in this encounter Care Teams Lacquer Spray Booth Operator Relationship Specialty Start Date End Date Patricia Berry MD 230 [place] [address] PCP - General Family Medicine 05/11/21 Craig Ochoa, ShawnD [address] [place] [address] Pharmacist Internal Medicine 05/24/23 documented as of this encounter
--- OUTSIDE RECORDS SUMMARY | 2024-11-17 17:11 | XMS_ITS | Encounter Summary ---
Author Organization [employer] Address 75 [facility] 7t [place] [address] Care Team Providers Care Front End Wheel Loader Operator Name Role Phone Patricia Berry MD Primary Care Provider [phone] Craig Ochoa PharmD Unavailable Reason for Visit * Reason Onset Date Comments Med Refill 11/17/2024 Encounter Details Date Type Department Care Team ([facility] st Contact Info) Description 11/17/2024 Telephone [facility] MED[facility]INE 230 [place], [place] [phone] Patricia Berry MD 230 [place], [place] [phone] Med Refill Social History Tobacco Use Types [...] the past 12 months, has t he [employer], gas, oil or water company threatened to [...] encounter Miscellaneous Notes * Telephone Encounter - Clare Jauregui - 11/17/2024 2:16 PM EDT TC from pt requesting medication refill. Medications needing refill : traMADol (Ultram) 50 MG tablet To be sent to: [facility]/pharmacy [address] [place] [address] documented in this encounter Plan of Treatment Upcoming Encounters Date Type Department Care Team (Late st Contact Info) Description 12/08/2024 3:45 PM EDT Office Visit [facility] MED[facility]INE [address] [place] [address] [phone] Patricia Berry MD [address] [place] [address] [phone] 01/05/2025 11:00 AM EDT Office Visit [facility] [address] [place] [address] documented as of this encounter Goals Goal Patient Goal Type Associated Problems Recent Progress Patient-Stated? Author Blood Pressure < 140/90 Blood Pressure 120/92( 025 10:38 AM EST) No Craig Ochoa, PharmD documented as of this encounter Visit Diagnoses Not on filedocumented in this encounter Additional Health Concerns Assessment Noted Time PHQ-9 Depression Total Score: 0 11/27/19 24 10:58 AM EDT documented as of this encounter Care Teams Front End Wheel Loader Operator Relationship Specialty Start Date End Date Patricia Berry MD 230 [place] [address] PCP - General Family Medicine 05/11/21 Craig Ochoa, PharmD 230 [place] [address] Pharmacist Internal Medicine 05/24/23 documented as of this encounter
--- OUTSIDE RECORDS SUMMARY | 2024-11-17 17:11 | XMS_ITS | Encounter Summary ---
Author Organization [employer] Address 75 [facility] 7t [place] [address] Care Team Providers Care Baker Pie Name Role Phone Patricia Berry MD Primary Care Provider [phone] Craig Ochoa PharmD Unavailable [phone] Reason for Visit * Reason Comments Med Refill Encounter Details Date Type Department Care Team (Late st Contact Info) Description 09/17/2022 Refill [facility] 230 [place], [place] [phone] Patricia Berry MD 230 [place], [place] [phone] Moderate persistent asthma without complication Social History Tobacco Use Types Packs/Day Years [...] PM EST documented as of this encounter Plan of Treatment Upcoming Encounters Date Type Department Care Team (Late Contact Info) Description 12/08/2024 3:45 PM EDT Office Visit [facility] 230 [place], [place] [phone] Patricia Berry MD [address] [place] [address] 01/05/2025 11:00 AM EDT Office Visit [facility] MEDICINE [address] [place] [address] documented as of this encounter Visit Diagnoses Diagnosis Moderate persistent asthma without complication documented in this encounter Care Teams Baker Pie Relationship Specialty Start Date End Date Patricia Berry MD [address] [place] [address] PCP - General Family Medicine 05/11/21 Craig Ochoa, ShawnD [address] [place] [address] Pharmacist Internal Medicine 05/24/23 documented as of this encounter
--- OUTSIDE RECORDS SUMMARY | 2024-11-17 17:11 | XMS_ITS | Encounter Summary ---
Author Organization [employer] Address 75 [facility] 7t [place] [address] Care Team Providers Care Manager Imaging Name Role Phone Patricia Berry MD Primary Care Provider [phone] Craig Ochoa PharmD Unavailable [phone] Encounter Details Date Type Department Care Team (Late st Contact Info) Description 09/06/2022 Orders Only [facility] MEDICINE [address] [place] [address] [phone] Jeanine Kearns LPN Social History Tobacco Use Types Packs/Day Years [...] Description 12/08/2024 3:45 PM EDT Office Visit [facility] [address] [place] [address] [phone] Patricia Berry MD [address] [place] [address] 01/05/2025 11:00 AM EDT Office Visit [facility] [address] [place] [address] documented as of this encounter Visit Diagnoses Not on filedocumented in this encounter Care Teams Manager Imaging Relationship Specialty Start Date End Date Patricia Berry MD 230 [place] [address] PCP - General Family Medicine 05/11/21 Craig Ochoa, Caroline 230 [place] [address] Pharmacist Internal Medicine 05/24/23 documented as of this encounter
--- OUTSIDE RECORDS SUMMARY | 2024-11-17 17:11 | XMS_ITS | Encounter Summary ---
Author Organization [employer] Address 75 [facility] 7t [place] [address] Care Team Providers Care Log Pond Worker Name Role Phone Patricia Berry MD Primary Care Provider [phone] Craig Ochoa PharmD Unavailable [phone] Encounter Details Date Type Department Care Team ([facility] st Contact Info) Description 08/14/2023 Orders Only [facility]INE 230 [place], [place] [phone] Patricia Berry MD 230 [place], [place] [phone] Hypothyroidism, unspecified type (Primary Dx) Social History Tobacco Use Types Packs/Day Years [...] Description 12/08/2024 3:45 PM EDT Office Visit [facility] MED[facility]INE [address] [place] [address] Patricia Berry MD [address] [place] [address] 01/05/2025 11:00 AM EDT Office Visit [facility] [address] [place] [address] documented as of this encounter Goals Goal Patient Goal Type Associated Problems Recent Progress Patient-Stated? Author Blood Pressure < 140/90 Blood Pressure 120/92( 025 10:38 AM EST) Craig Ramsey, PharmD documented as of this encounter Procedures Procedure Name Priority Date/Time Associated Diagnosis Comments TSH W/REFLEX TO FT4 Routine 11/27/2023 1 2:10 PM EDT Hypothyroidism, unspecified type documented in this encounter Results * TSH with Reflex to Free T4 (11/27/2023 12:10 PM EDT) TSH reflex Free T4 2.74 0.32 - 4.0 uIU/mL [facility] Blood 11/27/2023 12:1 0 PM EDT 11/27/2023 1:11 PM EDT Patricia Berry MD LAB BLOOD ORDERABLES Final Resul t [facility] [address] [place] [address] [phone] documented in this encounter Visit Diagnoses Diagnosis Hypothyroidism, unspecified type- Primary documented in this encounter Care Teams Log Pond Worker Relationship Specialty Start Date End Date Patricia Berry MD 230 [place] [address] PCP - General Family Medicine 05/11/21 Craig Ochoa, ShawnD [address] [place] [phone] Pharmacist Internal Medicine 05/24/23 documented as of this encounter
--- OUTSIDE RECORDS SUMMARY | 2024-11-17 17:11 | XMS_ITS | Encounter Summary ---
Author Organization [employer] Address 75 [facility] 7t [place] [address] Care Team Providers Care Sales Representative Health Insurance Name Role Phone Patricia Berry MD Primary Care Provider [phone] Craig Ochoa PharmD Unavailable [phone] Reason for Visit * Reason Onset Date Comments ER Follow-up 07/18/2023 Encounter Details Date Type Department Care Team ([facility] st Contact Info) Description 07/18/2023 Telephone [facility] 230 [place], [place] [phone] Patricia Berry MD 230 [place], [place] [phone] ER Follow-up Social History Tobacco Use Types Packs/Day Years [...] encounter Miscellaneous Notes * Telephone Encounter - Pili Llamas RN - 07/19/2023 4:21 PM EST TC placed to patient to follow up on message below regarding ED visit. Patient was NOT seen at [facility] ED on 07/17/23. Patient reported that he was seen at [facility] ED the night of 07/11/23 for blood in stool. [facility] notes in chart. Patient reported bright red blood and clots of blood in stool. Patient prescribed two antibiotics on discharge, metronidazole and levofloxacin. Took them for two days until about 07/13/23, then stopped because they upset his stomach. Patient reports history of diverticulitis that resulted in a colostomy bag about 9 years ago and that started with similar symptoms. He wants to avoid this situation. He reports that blood in stool only lasted for one day and has not recurred since discharge. He reports that he may try to restart the prescribed antibiotics to be on the safe side. He will take them with food. No f/u appointments available next week with PCP. Patient declined sooner appointment on Saturday or Saturday at [facility], so scheduled for 07/24/23 with Elton Ellis @ 10am. Routing message to PCP so she is aware. Message: Tc from patient requesting a ER Follow up appt was seen at [facility] on 07/17 for blood in stool and was diagnosed with colonitis and needs Colonoscopy * Telephone Encounter - Edmundo Márquez - 07/18/2023 3:36 PM EST Tc from patient requesting a ER Follow up appt was seen at [facility] on 07/17 for blood in stool and was diagnosed with colonitis and needs Colonoscopy documented in this encounter Plan of Treatment Upcoming Encounters Date Type Department Care Team (Late st Contact Info) Description 12/08/2024 3:45 PM EDT Office Visit [facility] MEDICINE [address] [place] [phone] Patricia Berry MD [address] [place] [address] 01/05/2025 11:00 AM EDT Office Visit [facility] [address] [place] [address] documented as of this encounter Goals Goal Patient Goal Type Associated Problems Recent Progress Patient-Stated? Author Blood Pressure < 140/90 Blood Pressure 120/92( 025 10:38 AM EST) No Craig Ochoa, Caroline documented as of this encounter Visit Diagnoses Not on filedocumented in this encounter Care Teams Sales Representative Health Insurance Relationship Specialty Start Date End Date Patricia Berry MD [address] [place] [address] PCP - General Family Medicine 05/11/21 Craig Ochoa, PharmD [address] [place] [address] Pharmacist Internal Medicine 05/24/23 documented as of this encounter
--- OUTSIDE RECORDS SUMMARY | 2024-11-17 17:11 | XMS_ITS | Encounter Summary ---
Author Organization [employer] Address 75 [facility] 7t [place] [address] Care Team Providers Care Swift Tender Name Role Phone Patricia Berry MD Primary Care Provider [phone] Craig Ochoa PharmD Unavailable [phone] Encounter Details Date Type Department Care Team (Late Contact Info) Description 08/21/2022 Telephone [facility]INE [address] [place] [address] [phone] Patricia Berry MD 230 [place], [place] [phone] Social History Tobacco Use Types Packs/Day Years [...] Description 12/08/2024 3:45 PM EDT Office Visit [facility] [address] [place] [address] [phone] Patricia Berry MD 230 [place], [place] [phone] 01/05/2025 11:00 AM EDT Office Visit [facility] 230 [place] [address] documented as of this encounter Visit Diagnoses Not on filedocumented in this encounter Care Teams Swift Tender Relationship Specialty Start Date End Date Patricia Berry MD [address] [place] [address] PCP - General Family Medicine 05/11/21 Craig Ochoa, ShawnD [address] [place] [address] Pharmacist Internal Medicine 05/24/23 documented as of this encounter
--- OUTSIDE RECORDS SUMMARY | 2024-11-17 17:11 | XMS_ITS | Encounter Summary ---
Author Organization [employer] Address 75 [facility] 7t [place] [address] Care Team Providers Care Dog Day Care Attendant Name Role Phone Patricia Berry MD Primary Care Provider [phone] Craig Ochoa PharmD Unavailable Reason for Visit * Reason Comments Med Refill Encounter Details Date Type Department Care Team (Late Contact Info) Description 08/05/2022 Refill [facility] [address] [place] [address] [phone] Moses Tejada FNP Moderate persistent asthma without complication Social History [...] suspected to have Coronavirus/COVID-19? No / Unsure 08/07/2022 2:44 PM EST documented as of this encounter Plan of Treatment Upcoming Encounters Date Type Department Care Team (Late Contact Info) Description 12/08/2024 3:45 PM EDT Office Visit [facility] MEDICINE [address] [place], [place] [phone] Patricia Berry MD 230 [place], [place] [phone] 01/05/2025 11:00 AM EDT Office Visit [facility]INE [address] [place] [address] documented as of this encounter Visit Diagnoses Diagnosis Moderate persistent asthma without complication documented in this encounter Care Teams Dog Day Care Attendant Relationship Specialty Start Date End Date Patricia Berry MD [address] [place] [address] PCP - General Family Medicine 05/11/21 Craig Ochoa, Caroline [address] [place] [phone] Pharmacist Internal Medicine 05/24/23 documented as of this encounter
--- OUTSIDE RECORDS SUMMARY | 2024-11-17 17:11 | XMS_ITS | Encounter Summary ---
Author Organization [employer] Address 75 [facility] 7t [place] [address] Care Team Providers Care Car Pick Up Driver Name Role Phone Patricia Berry MD Primary Care Provider [phone] Craig Ochoa PharmD Unavailable [phone] Reason for Visit * Reason Comments Med Change Request Encounter Details Date Type Department Care Team ([facility] st Contact Info) Description 11/16/2024 Refill [facility] [address] [place] [address] Patricia Berry MD 230 [place], [place] [phone] Social History Tobacco Use Types Packs/Day Years [...] Description 12/08/2024 3:45 PM EDT Office Visit [address] [address] Patricia Berry MD [address] [place] [address] 01/05/2025 11:00 AM EDT Office Visit [address] [address] documented as of this encounter Goals Goal [...] documented as of this encounter Care Teams Car Pick Up Driver Relationship Specialty Start Date End Date Patricia Berry MD [address] [place] [address] PCP - General Family Medicine 05/11/21 Craig Ochoa, PharmD 230 [place] [address] Pharmacist Internal Medicine 05/24/23 documented as of this encounter
--- OUTSIDE RECORDS SUMMARY | 2024-11-17 17:11 | XMS_ITS | Encounter Summary ---
Author Organization [employer] Address 75 [facility] 7t [place] [address] Care Team Providers Care Tax Associate Name Role Phone Patricia Berry MD Primary Care Provider [phone] Craig Ochoa PharmD Unavailable [phone] Encounter Details Date Type Department Care Team ([facility] st Contact Info) Description 08/07/2023 Orders Only [facility] 230 [place], [place] [phone] Patricia Berry MD 230 [place], [place] [phone] Social History Tobacco Use Types Packs/Day Years [...] Description 12/08/2024 3:45 PM EDT Office Visit [facility] [address] [place] [address] Patricia Berry MD [address] [place] [address] 01/05/2025 11:00 AM EDT Office Visit [address] [address] documented as of this encounter Goals Goal Patient Goal Type Associated Problems Recent Progress Patient-Stated? Author Blood Pressure < 140/90 Blood Pressure 120/92( 025 10:38 AM EST) No Craig Ochoa, PharmKassidy documented as of this encounter Visit Diagnoses Not on filedocumented in this encounter Care Teams Tax Associate Relationship Specialty Start Date End Date Patricia Berry MD [address] [place] [address] PCP - General Family Medicine 05/11/21 Craig Ochoa, PharmD [address] [place] [address] Pharmacist Internal Medicine 05/24/23 documented as of this encounter
--- OUTSIDE RECORDS SUMMARY | 2024-11-17 17:12 | XMS_ITS | Encounter Summary ---
Author Organization [employer] Address 75 [facility] 7t [place] [address] Care Team Providers Care Cosmetic Consultant Name Role Phone Patricia Berry MD Primary Care Provider [phone] Craig Ochoa PharmD Unavailable [phone] Reason for Referral * Imaging (Routine) - Closed Specialty Diagnoses / Procedures Referred By Contac t Referred To Contact Radiology Diagnoses Transaminitis Procedures US Abdomen Comp w elastography Patricia Berry MD 230 [place] [address] Phone: tel: fax: [address] Phone: tel: fax: Referral ID Status Reason Start Date Expiration Date Visits Re quested Visits Authorized [id number] Closed 06/22/2024 06/22/2025 1 1 Encounter Details Date Type Department Care Team (Late st Contact Info) Description 06/22/2024 Orders Only [facility] [address] [place] [address] [phone] Patricia Berry MD [address] [place] [address] [phone] Transaminitis (Primary Dx) Social History Tobacco Use Types [...] 3:45 PM EDT Office Visit [facility] [address] [place] [address] Patricia Berry MD 230 [place] [address] 01/05/2025 11:00 AM EDT Office Visit [facility] 230 [place] [address] Scheduled Orders Name Type Priority Associated Diagnoses Orde r Schedule Hepatitis B Surface Antigen with Reflex Confirmation Lab Routine Transaminitis Expected: 06/22/2024 (Approximate), Expires: 06/22/2025 Helicobacter pylori??Antigen, EIA, Stool Lab Routine Transaminitis Expected: 06/22/2024 (Approximate), Expires: 06/22/2025 CBC auto differential Lab Routine Transaminitis Expected: 06/22/2024 (Approximate), Expires: 06/22/2025 US Abdomen Comp w elastography Imaging Routine Transaminitis Expected: 06/22/2024, Expires: 06/22/2025 documented as of this encounter Goals Goal Patient Goal Type Associated Problems Recent Progress Patient-Stated? Author Blood Pressure < 140/90 Blood Pressure 120/92( 025 10:38 AM EST) No Craig Ochoa, PharmD documented as of this encounter Procedures Procedure Name Priority Date/Time Associated Diagnosis Comments HEPATITIS C AB W/REFL TO HCV RNA, QN, PCR Routine 07/02/2024 2:46 PM EST Transaminitis HEPATITIS A ANTIBODY, TOTAL Routine 07/02/2024 2:46 PM EST Transaminitis HEPATITIS B CORE AB TOTAL Routine 07/02/2024 2:46 PM EST Transaminitis HEPATITIS B SURFACE ANTIBODY, QUALITATIVE Routine 07/02/2024 2:46 PM EST Transaminitis HEPATIC FUNCTION PANEL Routine 07/02/2024 2:46 PM EST Transaminitis documented in this encounter Results * Hepatic Function Panel (07/02/2024 2:46 PM EST) Bilirubin, Total 0.3 0.0 - 1.0 mg/dL [facility] Bilirubin, Direct 0.1 0.0 - 0.5 mg/dL [facility] Aspartate Amino Transferase 34 5 - 37 U/L [facility] Alanine Aminotransferase 29 0 - 40 U/L [facility] Total Protein 8.0 6.5 - 8.0 g/dL [facility] Albumin Level 4.0 3.5 - 5.0 g/dL [facility] Alkaline Phosphatase 109 39 - 117 U/L [facility] Blood Venous blood specimen / Unknown 07/02/2024 2:46 PM EST 07/02/2024 2:46 PM EST us Patricia Berry MD LAB BLOOD ORDERABLES Final Resul t Performing Organization Address City/[facility]/ZIP Co de Phone Number [facility] [address] [place] [phone] * Hepatitis C Antibody with Reflex to HCV, RNA, Quantitative, Real-Time PCR (07/02/2024 2:46 PM EST) Hepatitis C Antibody Nonreactive Nonreactive [facility] Comment:Antibodies to HCV no t detected; does not exclude early acuteHCV infection. Blood Venous blood specimen / Unknown 07/02/2024 2:46 PM EST 07/02/2024 2:46 PM EST us Patricia Berry MD LAB BLOOD ORDERABLES Final Resul t Performing Organization Address [facility] Co de Phone Number [facility] [address] [place] [phone] * Hepatitis B Surface Antibody, Qualitative (07/02/2024 2:46 PM EST) ~Hepatitis B Surface Antibody REACTIVE Nonreactive [facility] Comment:REACTIVE: > 11.99 mI U/mL Blood Venous blood specimen / Unknown 07/02/2024 2:46 PM EST 07/02/2024 2:46 PM EST us Patricia Berry MD LAB BLOOD ORDERABLES Final Resul t Performing Organization Address City/[facility] Co de Phone Number [facility] [address] [place] [phone] * Hepatitis B Core Antibody, Total (07/02/2024 2:46 PM EST) Hepatitis B Core Antibody Nonreactive Nonreactive [facility] Blood Venous blood specimen / Unknown 07/02/2024 2:46 PM EST 07/02/2024 2:46 PM EST us Patricia Berry MD LAB BLOOD ORDERABLES Final Resul t Performing Organization Address City/[facility]/ZIP Co de Phone Number [facility] [address] [place] [phone] * Hepatitis A Antibody, Total (07/02/2024 2:46 PM EST) Hepatitis A Antibody IgG Nonreactive Nonreactive [facility] Blood Venous blood specimen / Unknown 07/02/2024 2:46 PM EST 07/02/2024 2:46 PM EST us Patricia Berry MD LAB BLOOD ORDERABLES Final Resul t Performing Organization Address [facility]/ZIP Co de Phone Number [facility] [address] [place] [phone] documented in this encounter Visit Diagnoses Diagnosis Transaminitis- Primary Nonspecific elevation of levels of transaminase or lactic acid dehydrogenase (LDH) documented in this encounter Additional Health Concerns Assessment Noted Time PHQ-9 Depression Total Score: 0 11/27/19 24 10:58 AM EDT documented as of this encounter Care Teams Cosmetic Consultant Relationship Specialty Start Date End Date Patricia Berry MD [address] [place] [address] PCP - General Family Medicine 05/11/21 Craig Ochoa, ShawnD [address] [place] [address] Pharmacist Internal Medicine 05/24/23 documented as of this encounter
--- OUTSIDE RECORDS SUMMARY | 2024-11-17 17:12 | XMS_ITS | Encounter Summary ---
Author Organization [employer] Address 75 [facility] 7t [place] [address] Care Team Providers Care Instructor Business Education Name Role Phone Patricia Berry MD Primary Care Provider [phone] Craig Ochoa PharmD Unavailable [phone] Reason for Visit * Reason Comments Med Refill Encounter Details Date Type Department Care Team (Late st Contact Info) Description 06/12/2024 Refill [facility] 230 [place] [address] Patricia Berry MD 230 [place] [address] Social History Tobacco Use Types Packs/Day Years [...] Description 12/08/2024 3:45 PM EDT Office Visit [address] [address] Patricia Berry MD [address] [place] [address] 01/05/2025 11:00 AM EDT Office Visit [address] [address] documented as of this encounter Goals Goal [...] documented as of this encounter Care Teams Instructor Business Education Relationship Specialty Start Date End Date Patricia Berry MD [address] [place] [address] PCP - General Family Medicine 05/11/21 Craig Ochoa, PharmD 230 [place] [address] Pharmacist Internal Medicine 05/24/23 documented as of this encounter
--- OUTSIDE RECORDS SUMMARY | 2024-11-17 17:12 | XMS_ITS | Encounter Summary ---
Author Organization [employer] Address 75 [facility] 7t [place] [address] Care Team Providers Care Sweat Box Attendant Name Role Phone Patricia Berry MD Primary Care Provider [phone] Craig Ochoa PharmD Unavailable [phone] Reason for Visit * Reason Onset Date Comments Appointment Request 10/21/2024 Encounter Details Date Type Department Care Team ([facility] st Contact Info) Description 10/21/2024 Telephone [facility] 230 [place], [place] [phone] Patricia Berry MD 230 [place], [place] [phone] Appointment Request Social History Tobacco Use Types [...] the past 12 months, has t he [employer], gas, oil or water [employer] threatened to shut off services in your [...] encounter Miscellaneous Notes * Telephone Encounter - Bert Arellano - 10/21/2024 8:05 AM EDT Tc from pt requesting to R/s Appt from 10/21/24. Contact pt at [phone] documented in this encounter Plan of Treatment Upcoming Encounters Date Type Department Care Team (Late st Contact Info) Description 12/08/2024 3:45 PM EDT Office Visit [facility] [address] [place] [address] Patricia Berry MD [address] [place] [address] 01/05/2025 11:00 AM EDT Office Visit [facility] [address] [place] [address] documented as of this encounter Goals Goal Patient Goal Type Associated Problems Recent Progress Patient-Stated? Author Blood Pressure < 140/90 Blood Pressure 120/92( 025 10:38 AM EST) Craig Ramsey, PharmD documented as of this encounter Visit Diagnoses Not on filedocumented in this encounter Additional Health Concerns Assessment Noted Time PHQ-9 Depression Total Score: 0 11/27/19 24 10:58 AM EDT documented as of this encounter Care Teams Sweat Box Attendant Relationship Specialty Start Date End Date Patricia Berry MD [address] [place] [address] PCP - General Family Medicine 05/11/21 Craig Ochoa, ShawnD [address] [place] [address] Pharmacist Internal Medicine 05/24/23 documented as of this encounter
--- OUTSIDE RECORDS SUMMARY | 2024-11-17 17:12 | XMS_ITS | Encounter Summary ---
Author Organization [employer] Address [address] [place] [address] 7t [place] [address] Care Team Providers Care Slurry Control Tender Name Role Phone Patricia Berry MD Primary Care Provider [phone] Craig Ochoa PharmD Unavailable Reason for Referral * Consultation (Routine) - Closed Specialty Diagnoses / Procedures Referred By Contac t Referred To Contact Bariatrics Diagnoses Class 3 severe obesity due to excess calories with serious comorbidity and body mass index (BMI) of 45.0 to 49.9 in adult ([facility]) KOBY (obstructive sleep apnea) Patricia Berry MD [address] [place] [address] Phone: tel: fax: Breana Nettles MD [address] [place] [address] Phone: tel: fax: Referral ID Status Reason Start Date Expiration Date V isits Requested Visits Authorized [id number] Closed Specialty Services Required 02/27/2024 02/26/2025 1 1 Encounter Details Date Type Department Care Team (Late st Contact Info) Description 02/27/[address] [facility] 230 [place], [place] [phone] Patricia Berry MD [address] [place], [place] [phone] Class 3 severe obesity due to excess calories with serious comorbidity and body mass index (BMI) of 45.0 to 49.9 in adult (CMS/HCC) (Primary Dx); KOBY (obstructive sleep apnea) Social History Tobacco Use Types Packs/Day Years Used Date Smoking Tobacco: Never Passive Smoke Exposure: Never Smokeless Tobacco: Never Alcohol Use Standard Drinks/Week Comments Never 0 (1 standard drink = 0.6 oz pur e alcohol) Depression Answer Date Recorded Patient Health Questionnaire-9 [...] Description 12/08/2024 3:45 PM EDT Office Visit [facility] [address] [place] [address] Patricia Berry MD 230 [place] [address] 01/05/2025 11:00 AM EDT Office Visit [facility] 230 [place] [address] Scheduled Referrals Name Type Priority Associated Diagnoses Orde r Schedule Referral to Bariatric Surgery Outpatient Referral Routine Class 3 severe obesity due to excess calories with serious comorbidity and body mass index (BMI) of 45.0 to 49.9 in adult ([facility]) KOBY (obstructive sleep apnea) Expected: 02/27/2024 (Approximate), Expires: 02/26/2025 documented as of this encounter Goals Goal Patient Goal Type Associated Problems Recent Progress Patient-Stated? Author Blood Pressure < 140/90 Blood Pressure 120/92( 025 10:38 AM EST) No Craig Ochoa, Caroline documented as of this encounter Visit Diagnoses Diagnosis Class 3 severe obesity due to excess calories with serious comorbidity and body mass index (BMI) of 45.0 to 49.9 in adult ([facility])- Primary KOBY (obstructive sleep apnea) Obstructive sleep apnea (adult) (pediatric) documented in this encounter Additional Health Concerns Assessment Noted Time PHQ-9 Depression Total Score: 0 11/27/19 24 10:58 AM EDT documented as of this encounter Care Teams Slurry Control Tender Relationship Specialty Start Date End Date Patricia Berry MD [address] [place] [address] PCP - General Family Medicine 05/11/21 Craig Ochoa, PharmD [address] [place] [address] Pharmacist Internal Medicine 05/24/23 documented as of this encounter
--- OUTSIDE RECORDS SUMMARY | 2024-11-17 17:12 | XMS_ITS | Encounter Summary ---
Author Organization [employer] Address 75 [facility] 7t [place] [address] Care Team Providers Care Sap Plant Maintenance Consultant Name Role Phone Patricia Berry MD Primary Care Provider [phone] Craig Ochoa PharmD Unavailable [phone] Reason for Visit * Reason Comments Med Refill Encounter Details Date Type Department Care Team ([facility] st Contact Info) Description 01/08/[address] [facility] 230 [place] [address] Patricia Berry MD 230 [place], [place] [phone] Moderate persistent asthma without complication Social History Tobacco Use Types Packs/Day Years Used Date Smoking Tobacco: Never Passive Smoke Exposure: Never Smokeless Tobacco: Never Alcohol Use Standard Drinks/Week Comments Never 0 (1 standard drink = 0.6 oz pur e alcohol) PHQ-2 Answer Date Recorded Patient Health Questionnaire-2 Score 2 11/13/2022 Depression Answer Date Recorded Patient Health Questionnaire-2 [...] suspected to have Coronavirus/COVID-19? No / Unsure 12/31/2022 2:52 PM EDT documented as of this encounter Plan of Treatment Upcoming Encounters Date Type Department Care Team (Late st Contact Info) Description 12/08/2024 3:45 PM EDT Office Visit [facility] [address] [place] [address] Patricia Berry MD [address] [place] [address] 01/05/2025 11:00 AM EDT Office Visit [address] [address] documented as of this encounter Visit Diagnoses Diagnosis Moderate persistent asthma without complication documented in this encounter Care Teams Sap Plant Maintenance Consultant Relationship Specialty Start Date End Date Patricia Berry MD [address] [place] [address] PCP - General Family Medicine 05/11/21 Craig Ochoa, ShawnD [address] [place] [address] Pharmacist Internal Medicine 05/24/23 documented as of this encounter
--- OUTSIDE RECORDS SUMMARY | 2024-11-17 17:12 | XMS_ITS | Encounter Summary ---
Author Organization [employer] Address 75 [facility] 7t [place] [address] Care Team Providers Care Two Way Radio Installer Name Role Phone Patricia Berry MD Primary Care Provider [phone] Craig Ochoa PharmD Unavailable [phone] Reason for Visit * Reason Onset Date Comments Med Refill 09/08/2024 Encounter Details Date Type Department Care Team ([facility] st Contact Info) Description 09/08/2024 Telephone [facility]INE 230 [place], [place] [phone] Patricia Berry MD 230 [place], [place] [phone] Med Refill Social History Tobacco Use Types [...] the past 12 months, has t he [employer], gas, oil or water company threatened to [...] * Telephone Encounter - Bert Arellano - 09/08/2024 1:24 PM EST TC from pt requesting medication refill. Medications needing refill : traMADol (Ultram) 50 MG tablet To be sent to: [facility]/pharmacy #[address] [place] [address] documented in this encounter Plan of Treatment Upcoming Encounters Date Type Department Care Team (Late st Contact Info) Description 12/08/2024 3:45 PM EDT Office Visit [facility]INE [address] [place] [address] [phone] Patricia Berry MD [address] [place] [address] 01/05/2025 11:00 AM EDT Office Visit [facility] [address] [place] [address] documented as of this encounter Goals Goal [...] documented as of this encounter Care Teams Two Way Radio Installer Relationship Specialty Start Date End Date Patricia Berry MD [address] [place] [address] PCP - General Family Medicine 05/11/21 Craig Ochoa, PharmD [address] [place] [address] Pharmacist Internal Medicine 05/24/23 documented as of this encounter
--- OUTSIDE RECORDS SUMMARY | 2024-11-17 17:12 | XMS_ITS | Encounter Summary ---
Author Organization [employer] Address 75 [facility] 7t [place] [address] Care Team Providers Care Bladder Tier Name Role Phone Patricia Berry MD Primary Care Provider [phone] Craig Ochoa PharmD Unavailable [phone] Reason for Visit * Reason Comments Med Refill Encounter Details Date Type Department Care Team (Late st Contact Info) Description 07/27/2024 Refill [facility] 230 [place] [address] Patricia Berry MD [address] [place] [address] Class 3 severe obesity due to excess calories with serious comorbidity and body mass index (BMI) of 45.0 to 49.9 in adult (CMS/HCC) Social History Tobacco Use Types Packs/Day Years [...] Description 12/08/2024 3:45 PM EDT Office Visit [facility] [address] [place] [address] Patricia Berry MD [address] [place] [address] 01/05/2025 11:00 AM EDT Office Visit [address] [address] documented as of this encounter Goals Goal Patient Goal Type Associated Problems Recent Progress Patient-Stated? Author Blood Pressure < 140/90 Blood Pressure 120/92( 025 10:38 AM EST) Craig Ramsey, PharmD documented as of this encounter Visit Diagnoses Diagnosis Class 3 severe obesity due to excess calories with serious comorbidity and body mass index (BMI) of 45.0 to 49.9 in adult (CMS/[facility]) documented in this encounter Additional Health Concerns Assessment Noted Time PHQ-9 Depression Total Score: 0 11/27/19 24 10:58 AM EDT documented as of this encounter Care Teams Bladder Tier Relationship Specialty Start Date End Date Patricia Berry MD [address] [place] [address] PCP - General Family Medicine 05/11/21 Craig Ochoa PharmD [address] [place] [address] Pharmacist Internal Medicine 05/24/23 documented as of this encounter
--- OUTSIDE RECORDS SUMMARY | 2024-11-17 17:12 | XMS_ITS | Encounter Summary ---
Author Organization [employer] Address 75 [facility] 7t [place] [address] Care Team Providers Care Agriculture Teacher Name Role Phone Patricia Berry MD Primary Care Provider [phone] Craig Ochoa PharmD Unavailable [phone] Reason for Visit * Reason Onset Date Comments Med Refill 04/06/2024 Encounter Details Date Type Department Care Team ([facility] st Contact Info) Description 04/06/2024 Telephone [facility] 230 [place], [place] [phone] Patricia Berry MD [address] [place], [place] [phone] Med Refill Social History Tobacco Use Types [...] encounter Miscellaneous Notes * Telephone Encounter - Edmundo Márquez - 04/06/2024 1:21 PM EDT TC from pt requesting medication refill. Medications needing refill : traMADol (Ultram) 50 MG tablet To be sent to: [facility]/pharmacy #[id number] [place] [address] documented in this encounter Plan of Treatment Upcoming Encounters Date Type Department Care Team (Late st Contact Info) Description 12/08/2024 3:45 PM EDT Office Visit [facility] [address] [place] [address] Patricia Berry MD [address] [place] [address] 01/05/2025 11:00 AM EDT Office Visit [facility] [address] [place] [address] documented as of this encounter Goals Goal [...] documented as of this encounter Care Teams Agriculture Teacher Relationship Specialty Start Date End Date Patricia Berry MD [address] [place], [place] [phone] PCP - General Family Medicine 05/11/21 Craig Ochoa, Caroline [address] [place] [address] Pharmacist Internal Medicine 05/24/23 documented as of this encounter
--- OUTSIDE RECORDS SUMMARY | 2024-11-17 17:12 | XMS_ITS | Encounter Summary ---
Author Organization [employer] Address [address] [facility] [address] [place] [address] Care Team Providers Care Fleshing Machine Operator Name Role Phone Patricia Berry MD Primary Care Provider Craig Ochoa PharmD Unavailable [phone] Reason for Visit * Reason Onset Date Comments callback requested 08/13/2024 Encounter Details Date Type Department Care Team ([facility] st Contact Info) Description 08/13/2024 Telephone [facility] [address] [place], [place] [phone] Patricia Berry MD [address] [place], [place] [phone] callback requested Social History Tobacco Use Types Packs/Day Years [...] the past 12 months, has t he [employer], gas, oil or water company threatened to [...] encounter Miscellaneous Notes * Telephone Encounter - Deborah Hook - 08/13/2024 1:33 PM EST Tc from pt requesting a callback as he wouldn't be able to make it today's appointment as pt is notfeeling well documented in this encounter Plan of Treatment Upcoming Encounters Date Type Department Care Team (Late st Contact Info) Description 12/08/2024 3:45 PM EDT Office Visit [facility] [address] [place] [phone] Patricia Berry MD [address] [place] [phone] 01/05/2025 11:00 AM EDT Office Visit [address] [address] documented as of this encounter Goals Goal [...] documented as of this encounter Care Teams Fleshing Machine Operator Relationship Specialty Start Date End Date Patricia Berry MD [address] [place] [address] PCP - General Family Medicine 05/11/21 Craig Ochoa PharmD [address] [place] [address] Pharmacist Internal Medicine 05/24/23 documented as of this encounter
--- OUTSIDE RECORDS SUMMARY | 2024-11-17 17:12 | XMS_ITS | Encounter Summary ---
Author Organization [employer] Address [address] [facility] [address]t [place] [address] Care Team Providers Care Tobacco Warehouse Agent Name Role Phone Patricia Berry MD Primary Care Provider [phone] Craig Ochoa PharmD Unavailable [phone] Reason for Visit * Reason Comments Med Refill Encounter Details Date Type Department Care Team (Late st Contact Info) Description 01/14/2023 Refill [facility] [address] [place] [address] Heena Vasquez MD [address] [place] [address] Subacute maxillary sinusitis; Seasonal allergies Social History Tobacco Use Types Packs/Day Years [...] suspected to have Coronavirus/COVID-19? No / Unsure 01/15/2023 3:04 PM EDT documented as of this encounter Plan of Treatment Upcoming Encounters Date Type Department Care Team (Late st Contact Info) Description 12/08/2024 3:45 PM EDT Office Visit [address] [address] Patricia Berry MD [address] [place] [phone] 01/05/2025 11:00 AM EDT Office Visit [address] [address] documented as of this encounter Visit Diagnoses Diagnosis Subacute maxillary sinusitis Seasonal allergies Allergic rhinitis, cause unspecified documented in this encounter Care Teams Tobacco Warehouse Agent Relationship Specialty Start Date End Date Patricia Berry MD [address] [place] [id number] PCP - General Family Medicine 05/11/21 Craig Ochoa, ShawnD [address] [place] [phone] Pharmacist Internal Medicine 05/24/23 documented as of this encounter
--- OUTSIDE RECORDS SUMMARY | 2024-11-17 17:12 | XMS_ITS | Encounter Summary ---
Author Organization [employer] Address [address] [facility] [address] [place] [address] Care Team Providers Care Speech Instructor Name Role Phone Patricia Berry MD Primary Care Provider [phone] Craig Ochoa PharmD Unavailable Reason for Visit * Reason Comments Med Refill Encounter Details Date Type Department Care Team (Late st Contact Info) Description 07/16/2024 Refill [facility] [address] [place] [address] Patricia Berry MD [address] [place] [address] Social History Tobacco Use Types Packs/Day Years [...] Description 12/08/2024 3:45 PM EDT Office Visit [address] [address] Patricia Berry MD [address] [place] [address] 01/05/2025 11:00 AM EDT Office Visit [address] [address] documented as of this encounter Goals Goal Patient Goal Type Associated Problems Recent Progress Patient-Stated? Author Blood Pressure < 140/90 Blood Pressure 120/92( 025 10:38 AM EST) No Carig Ochoa, PharmD documented as of this encounter Visit Diagnoses Not on filedocumented in this encounter Additional Health Concerns Assessment Noted Time PHQ-9 Depression Total Score: 0 11/27/19 24 10:58 AM EDT documented as of this encounter Care Teams Speech Instructor Relationship Specialty Start Date End Date Patricia Berry MD [address] [place] [phone] PCP - General Family Medicine 05/11/21 Craig Ochoa, PharmD [address] [place] [address] Pharmacist Internal Medicine 05/24/23 documented as of this encounter
--- OUTSIDE RECORDS SUMMARY | 2024-11-17 17:12 | XMS_ITS | Data Portability ---
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 I provided real-time medical direction via phone for this encounter, and was available for additional phone based assistance as needed. Patient seen for acute on chronic R sided low back pain. Post op 1 month from spine surgery. AVSS and well appearing. No weakness numbness, tingling, fevers, bowel or bladder sxs to suggest cord involvement. Patient requesting toradol shot. Agreed to this but advised to increase home ibuprofen with food to 600mg TID and follow up with care team / surgeon. pallfather Not available 01/10/2024 10:10:20 01/28/2024 01/28/2024 I have reviewed and agree with the Assessment and Plan as documented by the Post Anesthesia Room Nurse. I provided real-time medical direction via phone for this encounter, and was available for additional phone based assistance as needed. Patient seen for back pain after recent spine surgery. Recently weaned off oxycodone. No interval trauma. No bowel or bladder sxs. No weakness numbness tingling so doubt cord involvement. PT has close follow up with surgeon who is aware of current sxs. Requesting toradol shot which is provided. pallfather Not available 01/29/2024 07:11:40 09/22/2024 09/22/2024 service called for back pain found 53 yom with hx HTN COPD c/o newly worsened left-sided back pain today while in shower originally injuired by mechanical fall 1 wks prior VSS reported tender L lumbar intact neuro exam #Lumbar strain 30mg ketorlac x1 rest, stretching notify service if worsening otherwise return to ptimary team [email or web address] Not available 09/22/2024 22:10:03 Plan of Treatment Reminders Order Date Submit Date Provider Last Modified By Organization Details Last Modified Time Details Appointments None recorded. Lab None recorded. Referral None recorded. Procedures None recorded. Surgeries None recorded. Imaging None recorded. Medication Orders ketorolac 30 mg/mL injection solution 2024 025 [id number], [address] [place], [address], 5 22:10:50 ketorolac 60 mg/2 mL intramuscul ar solution 2023 024 [id number], [address] [place], [address], 4 16:33:14 Patient TargetsNo targets recorded. Patient InstructionsNo instructions recorded. Reason for Referral None Reported. Medical Equipment None Reported. Allergies Allergen ID Allergen Name Allergen Category Reaction Reaction Severity Criticality Documentation Date Start Date Code Code System Note Provider Name and Address Organization Details Recorded Time 636 egg extract food,medi cation Not available Not available Not available 01/30/2022 52758 15 RxNorm Not Available [facility] 15:47:23 Medications Name Sig Start Date Stop Date Status Note LastModified by Organization Details LastModified Time vitamin b-12 1000mcg tablet, s PLEASE SEE ATTACHED FOR DETAILED DIRECTIONS active Not Available Not Available N ot Available b-12 sub 1000mcg active Not Available Not Available Not Available celecoxib 200 mg capsule TAKE 1 CAPSULE BY ORAL ROUTE TWICE A DAY NEEDED FOR PAIN active Not Available Not Available No t Available amoxicillin 500 mg capsule TOME 2 C PSULAS POR V A ORAL CADA OCHO HORAS POR 5 D active Not Available Not Available No t Available prednisone 10 mg tablet PLEASE SEE ATTACHED FOR DETAILED DIRECTIONS active Not Available Not Available N ot Available doxycycline hyclate 100 mg capsule PLEASE SEE ATTACHED FOR DETAILED DIRECTIONS active Not Available Not Available N ot Available ipratropium 0.5 mg-albuterol 3 mg (2.5 mg base)/3 mL nebulization soln USE 1 VIAL VIA NEBULIZER EVERY 8 HOURS NEEDED FOR WHEEZE/SHOR TNESS OF BREATH active Not Available Not Available No t Available ibuprofen 800 mg tablet TAKE 1 TABLET POR VIA ORAL 4 TIMES EVERY DAY WITH FOOD NEEDED active Not Available Not Available No t Available Lidocaine Viscous 2 % mucosal solution USE 1 APPLICATION TO AFFECTED MUCOSAL AREA 2 TIMES A DAY NEEDED FOR PAIN active Not Available Not Available No t Available ofloxacin 0.3 % eye drops APPLY 5 DROPS TO AFFECTED EAR DOS VECES AL D A X 7 DAYS active Not Available Not Available N ot Available prednisone 20 mg tablet TOME RADHA TABLETA POR V A ORAL TODOS LOS D POR SIETE D active Not Available Not Available N ot Available topiramate 25 mg tablet TAKE 1 (25MG) BY ORAL ROUTE EVERY BEDTIME active Not Available Not Available No t Available amlodipine 5 mg tablet TOME RADHA TABLETA TODOS LOS D active Not Available Not Available No t Available allopurinol 100 mg tablet TOME DOS TABLETAS POR V A ORAL TODOS LOS D active Not Available Not Available No t Available tramadol 50 mg tablet TOME RADHA TABLETA CADA 12 HORAS CUANDO SEA NECESARIO FOR SEVERE PAIN FOR UP TO 289 DAYS active Not Available Not Available Not Available acetaminophe n 500 mg tablet TOME DOS TABLETAS POR V A ORAL CUATRO VECES AL D A CUANDO SEA NECESARIO FOR PAIN OR FEVER active Not Available Not Available No t Available ketorolac 30 mg/mL (1 mL) injection solution 30 mg IM x 1 2021 active Not Available Not Available Not Avai lable levothyroxin e 75 mcg tablet TOME RADHA TABLETA TODOS LOS D active Not Available Not Available No t Available oxycodone-ac etaminophen 5 mg-325 mg tablet PLEASE SEE ATTACHED FOR DETAILED DIRECTIONS active Not Available Not Available N ot Available aspirin 325 mg tablet,delay ed release TAKE 1 TABLET BY MOUTH EVERY DAY FOR 14 DAYS POST OPERATIVELY active Not Available Not Available Not Available tamsulosin 0.4 mg capsule TOME RADHA C PSULA TODOS LOS D AL ACOSTARSE active Not Available Not Available No t Available baclofen 10 mg tablet TAKE 1 TABLET POR V A ORAL 2 TIMES EVERY DAY NEEDED FOR MUSCLE SPASMS active Not Available Not Available No t Available levothyroxin e 50 mcg tablet TOME RADHA TABLETA TODOS LOS D active Not Available Not Available No t Available oseltamivir 75 mg capsule TOME RADHA C PSULA DOS VECES AL D A POR 5 D active Not Available Not Available No t Available lisinopril 10 mg tablet TOME RADHA TABLETA TODOS LOS D active Not Available Not Available No t Available losartan 25 mg tablet PLEASE SEE ATTACHED FOR DETAILED DIRECTIONS active Not Available Not Available N ot Available docusate sodium 100 mg capsule TAKE 1 CAPSULE BY MOUTH 2 TIMES EVERY DAY active Not Available Not Available No t Available omeprazole 20 mg capsule,angela yed release TOME RADHA C PSULA DOS VECES AL D A 1 HOUR PRIOR TO MEALS active Not Available Not Available No t Available diclofenac sodium 75 mg tablet,delay ed release TOME RADHA TABLETA DOS VECES AL D A active Not Available Not Available No t Available montelukast 10 mg tablet TOME RADHA TABLETA TODOS LOS D active Not Available Not Available No t Available hydrochlorot hiazide 25 mg tablet TOME RADHA TABLETA TODOS LOS D active Not Available Not Available No t Available epinephrine 0.3 mg/0.3 mL injection, auto-injecto r INJECT 0.3 ML POR V A INTRAMUSCUL AR ONCE NEEDED FOR ANAPHYLAXIS active Not Available Not Available Not Available methylpredni solone 4 mg tablets in a dose pack TOME 6 TABLETAS EL PRIMER D A SEG N LO INDICA EL PAQUETE, Y REDUZCA 1 TABLETA CADA D A POR 6 D active Not Available Not Available N ot Available colchicine 0.6 mg tablet TOME RADHA TABLETA POR V A ORAL DOS VECES AL D A active Not Available Not Available No t Available ketorolac 60 mg/2 mL intramuscula r solution Inject 0.5 mL by intramuscul ar route. 2023 active Not Available Not Available Not Avai lable fluticasone propionate 50 mcg/actuatio n nasal spray,suspen bradly Colman 1 spray twice a day by intranasal route for 30 days. 2022 active Not Available Not Available Not Avai lable cholecalcife rol (vitamin D3) 125 mcg (5,000 unit) capsule TOME RADHA C PSULA TODOS LOS D active Not Available Not Available No t Available doxycycline hyclate 100 mg tablet TOME RADHA TABLETA POR V A ORAL DOS VECES AL D A POR SIETE D active Not Available Not Available N ot Available ipratropium bromide 21 mcg (0.03 %) nasal spray SPRAY 2 SPRAYS INTO EACH NOSTRIL TODOS LOS D CUANDO SEA NECESARIO FOR CONGESTION active Not Available Not Available N ot Available loratadine 10 mg tablet TOME RADHA TABLETA TODOS LOS D active Not Available Not Available No t Available amoxicillin 875 mg-potassium clavulanate 125 mg tablet TOME RADHA TABLETA DOS VECES AL D A POR 10 D active Not Available Not Available No t Available oxycodone 5 mg tablet TOME RADHA TABLETA CADA SEIS HORAS CUANDO SEA NECESARIO PARA EL DOLOR active Not Available Not Available No t Available escitalopram 10 mg tablet TOME RADHA TABLETA TODOS LOS D active Not Available Not Available No t Available Saline Nasal 0.65 % spray aerosol USE 1-2 SPRAY ON EACH NOSTRIL EVERY 2-3 HOURS NEEDED FOR NASAL CONGESTION active Not Available Not Available N ot Available tizanidine 2 mg capsule TAKE 1 CAPSULE BY ORAL ROUTE EVERY 8 HOURS NEEDED FOR PAIN active Not Available Not Available No t Available Athlete's Foot (terbinafine ) 1 % topical cream APPLY BY TOPICAL ROUTE EVERY DAY TO THE AFFECTED AND SURROUNDING AREAS OF SKIN active Not Available Not Available No t Available diclofenac 1 % topical gel APPLY 1 -2 GRAMS TO THE AFFECTED AREA TWICE A DAY active Not Available Not Available No t Available blood pressure test kit-large cuff USE TO CHECK BLOOD PRESSURE ONCE DAILY AND NEEDED active Not Available Not Available No t Available Purelax 17 gram/dose oral powder MIX 17GRAMS ( CAPFULL) IN A GLASS OF WATER AND DRINK DOS VECES AL D A DIRECTED active Not Available Not Available No t Available naloxone 4 mg/actuation nasal spray PLEASE SEE ATTACHED FOR DETAILED DIRECTIONS active Not Available Not Available N ot Available Wixela Inhub 500 mcg-50 mcg/dose powder for inhalation INHALE UN SOPLIDO POR V A ORAL DOS VECES AL D A active Not Available Not Available No t Available Vitals Date Recorded Oxygen saturation Oxygen saturation in Arterial blood by Pulse oximetry Body weight Heart rate Respiratory rate Body temperature Systolic blood pressure Diastolic blood pressure Provider Name and Address Organization Details Last Updated DateTime 4 98 % 98 % 258409. 16 g 76 /min 16 /min 98.2 [degF] 168 mm[Hg] 82 mm[Hg] Not Available [facility] 4 19:33:55 Date Recorded Heart rate Respiratory rate Body temperature Oxygen saturation Oxygen saturation in Arterial blood by Pulse oximetry Systolic blood pressure Diastolic blood pressure Provider Name and Address Organization Details Last Updated DateTime 4 62 /min 18 /min 97.1 [degF] 96 % 96 % 132 mm[Hg] 82 mm[Hg] Not Available [facility] 4 07:01:47 Date Recorded Heart rate Oxygen saturation Oxygen saturation in Arterial blood by Pulse oximetry Respiratory rate Systolic blood pressure Diastolic blood pressure Provider Name and Address Organization Details Last Updated DateTime 4 78 /min 95 % 95 % 18 /min 152 mm[Hg] 76 mm[Hg] Not Available [facility] 4 16:26:36 Date Recorded Oxygen saturation Oxygen saturation in Arterial blood by Pulse oximetry Heart rate Respiratory rate Body temperature Systolic blood pressure Diastolic blood pressure Provider Name and Address Organization Details Last Updated DateTime 4 99 % 99 % 88 /min 16 /min 98.1 [degF] 132 mm[Hg] 86 mm[Hg] Not Available [facility] 4 12:33:11 Date Recorded Body weight Respiratory rate Body height Heart rate Body temperature Oxygen saturation Oxygen saturation in Arterial blood by Pulse oximetry Systolic blood pressure Diastolic blood pressure Provider Name and Address Organization Details Last Updated DateTime 5 12144.4 g 14 /min 172.72 cm 68 /min 98 [degF] 98 % 98 % 123 mm[Hg] 70 mm[Hg] Not Available [facility] 5 19:17:41 Social History None recorded. Functional Status None recorded. Mental Status None recorded. Family History Nothing Reported. Medical History No medical history recorded. Past Encounters Encounter ID Performer Location Encounter Start Date Encounter Closed Date Diagnosis/Indication Diagnosis SNOMED-CT Code Diagnosis ICD10 Code Diagnosis Note [id number] Gage Glez MD [facility] [address] [place] [address] 01/15/2022 19:51:24 05/03/2022 11:29:27 Sciatica 45981730 M54.32 Reports long-stand ing history of sciatica, worsened in the setting of lifting a heavy table. No evidence of cord compromise or neurovascu lar injury. Plan for pain control, PCP follow-up. [id number] Melissa Erwin MD [facility] [address] [place] [phone] 01/30/2022 18:39:58 04/20/2022 15:04:08 Chronic low back pain [id number] M54.50 acute on chronic- gait off due to plantar fasciitis- flaring up back- cannot get appt w/ back specialist til 03/02. Advised to call in the AM to see if can move up. States ice/ heat/ Tylenol and Motrin not helping. Does not tolerate muscle relaxers- make him too drowsy, Got 30 mg Toradol 01/15 from [facility] w/ some relief- given repeat dose [id number] Maame Hodge MD [facility] [address] [place] [phone] 02/26/2022 19:47:23 05/03/2022 18:33:03 Osteoarthritis of knee [id number] M17.9 [id number] Jay Jay Hammond MD [facility] [address] [place] [phone] 03/04/2022 00:31:45 04/19/2022 15:39:58 Pain of left heel [id number] 341695 M79.672 51yo man presents with pain due to plantar fascia tear and also recent trauma to the pinky finger. Both are acute orthopedic issues (hand is in a cast, heel also being treated conservati vely by orthopedic s). He requested assistance with paincontro l. There is no history of CKD or stomach ulcers to his knowledge. Therefore treated with ketorolac 30mg IM. [id number] Vincent Quinonez MD [facility] [address] [place] [phone] 03/10/2022 11:06:47 05/07/2022 12:27:39 Pain of right knee joint [id number] 83719 M25.561 Will give Toradol 30mg IM. Has close f/u with PCP. [id number] Concha Jacobs MD [facility] [address] [place] [phone] 12/11/2022 17:48:00 12/13/2022 09:21:21 Maxillary sinus pain [id number] R51.9 Evaluation in the field was performed by my wirer colleague, as noted above, I provided real-time direction and supervisio n for this visit. 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 No fevers, no purulence to discharge. Compliance w/ CPAP but not use humidifcat ion as recommende d d/t family member w/ adverse experience . Given s/p adequate tx for bacterial sinusitis DDx includes irritation /dryness vs allergic rhinitis vs less likely resistant bacterial cause or fungal (afebrile, no purulence) . Recommend adding fluticason e to regimen, using humidifica tion w/ CPAP and PCP f/up for possible imaging vs ENT referral if not improving. We discussed the diagnostic uncertaint y of home visits and the risk associated with this. In this case, the patient and I felt this to be an acceptable and reasonable amount of risk given the benefit of avoiding an ED visit. We discussed the need to seek care urgently/e mergently in the setting of any new or worsening serious symptoms, shortness of breath, cough, chest pain, fever. [id number] BRAXTON FRANKLIN MD [facility] [address] [place] [phone] 10/18/2023 19:19:43 10/20/2023 16:24:48 Sciatica [id number] M54.32 [id number] Niels Healy MD [facility] [address] [place] [phone] 11/13/2023 15:17:37 11/13/2023 20:03:22 Left side sciatica [id number] 90077 M54.32 This 52-year-ol d male has left leg sciatica that is acting up today. He will be having surgery for this in several weeks. OTC medication s have not been effective. He has responded to Toradol in the past. I ordered Toradol 30 mg IM. He will follow-up with his PCP. The patient agreed with this plan. [id number] Jay Jay Hammond MD [facility] [address] [place] [phone] 12/31/2023 15:43:52 12/31/2023 17:52:20 Mechanical low back pain [id number] M54.50 53yo presents with acute on chronic low back pain. He recently underwent surgery due to urinary incontinen ce. He recently saw his surgeon and was told everything going well. He woke up with throbbing pain on the right side. He is taking oxycodone as prescribed , and tizanidine . No neurologic al or urinary symptoms. He has benefitted from and tolerated toradol in the past. He will call surgeon's office if pain persists. [id number] Keenan Booker MD [facility] [address] [place] [phone] 01/09/2024 19:33:53 01/10/2024 10:26:18 Low back pain [id number] M54.50 [id number] Keenan Booker MD [facility] [address] [place] [phone] 01/29/2024 07:01:45 01/29/2024 21:26:39 Low back pain [id number] M54.50 [id number] Cindy Peter MD [facility] [address] [place] [phone] 02/29/2024 16:26:32 03/01/2024 09:26:02 Pain of left knee joint [id number] 85158 M25.562 As noted, we were called to see this patient regarding concerns of knee pain. Evaluation in the field was performed by my wirer colleague, as noted above, I provided real-time direction and supervisio n for this visit. The evaluation revealed 53 y/o man with prior back surgery, L knee pain followed by surgeon. Increasing pain without acute injury. He takes 800 ibuprofen ~ 3x/day, has taken 1x so far. Has had good response to toradol in the past. Plan:15mg IM toradolHe will call his surgeon on Saturday for follow up Dispositio n: We discussed the diagnostic uncertaint y of home visits and the risk associated with this. In this case, the patient and I felt this to be an acceptable and reasonable amount of risk given the benefit of avoiding an ED visit. We discussed the need to seek care urgently/e mergently in the setting of any new or worsening serious symptoms, particular ly changes to consciousn ess, chest pain, dyspnea, changes to urine output. [id number] Gage Glez MD [facility] [address] [place] [phone] 04/30/2024 12:33:07 04/30/2024 20:44:34 Pain in lower limb [id number] M79.606 Patient reporting pain in his lower extremity after surgery. On wirer arrival, patient had just finished up a call with his primary surgical team and was advised that his symptoms were to be expected post-proce durally and he should continue his prescribed pain regimen. We encouraged him to continue to follow-up with his orthopedic team. [id number] Maame Hodge MD [facility] [address] [place] [phone] 09/22/2024 19:17:39 09/22/2024 23:01:05 Low back strain [id number] S39.012A Health Concerns Section Related Observation LastModified by Organization Detai ls LastModified Time None Recorded Concern Status LastModified by Organization Details LastModified Time None Recorded Advance Directives Directive None Recorded Payers Encounter Date Sequence Insurance Name Policy Number Policy Leiva Covered Member ID Leiva Member ID Guarantor Name 01/09/2024 1 [employer] - DOS ON OR AFTER 2022 - DUAL ELIGIBLE - DETENTION OPTIONS AND ONE CARE (MEDICARE REPLACEMENT/ADV ANTAGE - HMO) Brady Dale [id number] Brady Dale 01/28/2024 1 [employer] - DOS ON OR AFTER 2022 - DUAL ELIGIBLE - DETENTION OPTIONS AND ONE CARE (MEDICARE REPLACEMENT/ADV ANTAGE - HMO) Brady Dale [id number] Brady Dale 02/29/2024 1 [employer] - DOS ON OR AFTER 2022 - DUAL ELIGIBLE - DETENTION OPTIONS AND ONE CARE (MEDICARE REPLACEMENT/ADV ANTAGE - HMO) Brady Dale [id number] Brady Dale 04/30/2024 1 [employer] - DOS ON OR AFTER 2022 - DUAL ELIGIBLE - DETENTION OPTIONS AND ONE CARE (MEDICARE REPLACEMENT/ADV ANTAGE - HMO) Brady Dale [id number] Brady Dale 09/22/2024 1 [employer] - DOS ON OR AFTER 2022 - DUAL ELIGIBLE - DETENTION OPTIONS AND ONE CARE (MEDICARE REPLACEMENT/ADV ANTAGE - HMO) Brady Dale [id number] Brady Dale Notes Date Note Type Note Provider Name and Address Organization Details Recorded Time 01/09/2024 text/html [facility] Nurse Triage Notes (Johnthasuadiain Fartun): Reason For Request: Back pain Chief Complaints: Pain PMH: Hypertension, COPD/Asthma Allergies: Egg Comments: Member calling in to place a referral, identified via name, and address. Member who had spinal surgery December 01 and intermittently has an increase in pain. Per member the pain is more on the right side, he had a f/u appt with surgeon on 12/17 and was told they worked more on the right side. Member is no longer taking pain medications, but is still on a muscle relaxer, Tizanidine. Member denies anything strenuous, but believes his bed may be the cause of his discomfort. [facility] with good effect. Member would like to be evaluated for another dose. .................... .................... .................... .................... .................... .................... .................... . Post Anesthesia Room Nurse Note From Tomas Mari: Pt co right sided back pain since surgery. His surgeon told more work was done on right side may be more painful for awhile. Pt took ibuprofen with some effect last evening. Pt requesting toradol today as he has felt relief prior. Pt denies cp sob fever headaches or NVD. Baseline vitals assessed. C contacted and 30 mg toradol IM. Pt advised to take ibuprofen more regimented 3x per day. Pt advised to follow up with pcp. Pt education on signs indicating the ER. Post Anesthesia Room Nurse Allergies: Egg .................... .................... .................... .................... .................... .................... .................... . Disposition: Fulfilled Keenan Booker MD [address] [facility],[address], [place], [address], RIZWAN MATHEW KUMAR 01/10/2024 10:10:32 01/28/2024 text/html [facility] Nurse Triage Notes (Fartun Canales): Reason For Request: Back pain Chief Complaints: Pain PMH: Hypertension, COPD/Asthma Allergies: Egg Comments: Member calling in to place a referral, identified via name, and address. Member who had spinal surgery December 01 and intermittently has an increase in pain. Per member the pain is more on the right side, he had a f/u appt with surgeon on 12/17 and was told they worked more on the right side. Member is no longer taking Oxycodone, but alternating Tylenol and IBU. Member denies any new trauma or strenuous activity. Member was seen by Samy in the past and received toradol with good effect. Member would like to be evaluated for another dose. .................... .................... .................... .................... .................... .................... .................... . Post Anesthesia Room Nurse Note From Leann Miles: Pt states he had a spinal fusion without complication last month, and has continued to have pain on the right side of his back by the incision site radiating to his right hip. A&ox3, VSS, afebrile, endorses pain on weight bearing, +ROM in LE, denies numbness or tingling in R leg. Pt has been taking Tylenol and ibuprofen otc without effect. [facility] consulted, 15mg toradol IM administered. Pt has follow up with surgeon scheduled for Saturday. Red flags reviewed. Post Anesthesia Room Nurse Allergies: Egg .................... .................... .................... .................... .................... .................... .................... . Disposition: Fulfilled Keenan Booker MD [address] [place] [address],[address], [place], [phone], [employer] 01/29/2024 07:11:52 02/29/2024 text/html [facility] Nurse Triage Notes (Wilfredo Church): Reason For Request: PT reporting left knee pain going on 1 week>states having taken medication for it>believes he needs to call his surgeon in regards to it Chief Complaints: Pain PMH: Hypertension, COPD/Asthma Allergies: Egg Comments: [employer] Project Manager verified the member's name//address and phone number. Education provided on the response time and the member was advised to monitor reported s/s and seek emergency treatment if needed Pt reports left knee pain - x1 week - Denies swelling - Increased pain when ambulating - Denies any injury/trauma - Pain management requested .................... .................... .................... .................... .................... .................... .................... . Post Anesthesia Room Nurse Note From Pura Barros: Dispatched for the 53 yo male chief complaint of knee pain. U/a pt greets [facility] at door. Pt presents CA&Ox4, patent airway, normal breathing and skin signs warm, pink and dry. Pt states a hx of arthritis and has received 3 cortisone shots before, last on being x1 month ago. Pt states he is in the process of scheduling surgery for Left knee replacement. Pt is seeking pain management at this time. Pt states ax of eggs, no medication allergies. Pt states he takes 800 mg Ibuprofen x3/4 a day. Pt states his knee pain has been increasing in severity for 1 week even with Ibuprofen use. [facility] consulted and directs [facility] administration of 15mg Toradol IM - Deltoid. Pt administered 15mg Toradol without incident. Pt advised of all red flags. End of report. .................... .................... .................... .................... .................... .................... .................... . Disposition: Fulfilled Cindy Peter MD [address] [facility],[address], [place], [address], [employer] 02/29/2024 16:52:47 04/30/2024 text/html CRC Nurse Triage Notes (Sylvain Caban): Reason For Request: recent knee replacement Chief Complaints: Pain, Edema PMH: Hypertension, COPD/Asthma Allergies: Egg Comments: [employer] Project Manager verified the member's name//address and phone number. Mbr reports knee replacement on 04/22. Mbr reports tourniquet was used during surgery on thigh area, mbr reports area where the tourniquet was is swollen and painful. Education provided on the response time and the member was advised to monitor reported s/s and seek emergency treatment if needed -Jose E Caban RN .................... .................... .................... .................... .................... .................... .................... . Post Anesthesia Room Nurse Note From Shaun Mujica: Dispatched to above address for leg pain post surgery. On arrival patient 53 y/o M, found sitting in chair, AOX4, airway patent, speaking in full sentences, good color, in no apparent distress. Patient states he had a L knee replacement on the , is still having pain above knee where tourniquet was placed, spoke with surgical team and was told this is normal and expected, is taking medications including oxycodone and hydromorphone as prescribed, taking OTC Tylenol, was told not to take ibuprophen. Patient is requesting a Toradol injection, as it has helped in the past. Patients vital signs checked. Secondary assessment, pupils PERRL, airway patent, no JVD, trachea midline, equal chest rise and fall, lungs clear all loaiza, abdomen soft non tender, no signs of trauma, good radial pulse, skin pink warm and dry, L leg has wound vac and bandage, no bleeding or signs of infection, no obvious bruising or redness. [facility] contacted, spoke with Dr. Laura, advised of patient complaints and exam findings. [facility] recommends home care and follow up with surgical team. Patient advised of [facility] recommendations, home care and red flags. Patient has no additional questions or concerns at this time. SC8 clear. EOR. .................... .................... .................... .................... .................... .................... .................... . Disposition: Fulfilled Gage Glez MD [address] [facility],[address], [place], [address], [employer] 04/30/2024 17:04:55 09/22/2024 text/html CRC Nurse Triage Notes (Nakia Whitten - RN): Reason For Request: Pt reporting left side back pain from this morning Denies: Falls with head strike and LOC Falls from a standing position, no LOC, patient is amnestic to the event Falls with isolated injury and deformity noted to limb Falls with inability to move post fall Cool extremities after fall or injury Weakness with fall, able to move all extremities Chief Complaints: Back pain PMH: Hypertension, COPD/Asthma, Chronic Pain PMH Reviewed at 09/22/2024 - 15:47 Allergies Reviewed at 09/22/2024 - 15:47 Comments: Ict Project Manager verified the name//address and phone number. He has had left sided back pain since this morning. He did have a fall last week. He feels it is because of the fall that he has the pain . He did not LOC with the fall, he did hit his back and knee. he has had back fusion and knee replacements. HE bent over this am and the pain is present and worse than previous. He does not have any CKD He did not get imaging , he is aware we dont do imaging . He is not on blood thinners. He took a motrin that did not help. Education provided on the response time and the Patient was advised to monitor reported s/s and seek emergency treatment if needed .................... .................... .................... .................... .................... .................... .................... . Post Anesthesia Room Nurse Note From Earnest Salgado: Patient alert and oriented walks with a steady, even GAIT after answering door. Patient complains of left lower back pain after fall from standing times five days ago. Patient shows me video of him falling on icy stairs falling down one stair to sitting. Patient complains of left knee right shoulder and left lower back pain at that time. Patient reports pain increase today when he twisted in shower. patient reports ibuprofen 800 mg today at 10 AM. Patient denies recent bleeding, urinary issues, CVA tenderness or kidney problems. Patient denies other pain or complaints. Patient denies numbness or tingling in extremities, denies head or loss of consciousness at time of fall. Patient pink warm and dry secondary exam unremarkable. Negative CVA tenderness. No bruising noted. Left lower back. Pain increases on movement area slightly tender. [facility] or Toradol 30 mg IM. Medication administered as ordered, without complication using five rights. Red flags patient education discussed. Patient demonstrates understanding of care and plan. Patient advised not to use ibuprofen again until tomorrow. .................... .................... .................... .................... .................... .................... .................... . [facility] Consulted: Maame Hodge .................... .................... .................... .................... .................... .................... .................... . Disposition: Fulfilled Maame Hodge MD [address] [place] [address],[address] [facility], [place], [address], [employer] MATHEW KUMAR 09/22/2024 22:11:06
--- OUTSIDE RECORDS SUMMARY | 2024-11-17 17:12 | XMS_ITS | Encounter Summary ---
Author Organization [employer] Address [address] [facility] 7t [place] [address] Care Team Providers Care Transitional Nurse Name Role Phone Patricia Berry MD Primary Care Provider [phone] Craig Ochoa PharmD Unavailable [phone] Reason for Visit * Reason Onset Date Comments Med Refill 06/29/2024 Encounter Details Date Type Department Care Team ([facility] st Contact Info) Description 06/29/2024 Telephone [facility] [address] [place], [place] [phone] Patricia Berry MD [address] [place], [place] [phone] Med Refill Social History Tobacco Use Types [...] the past 12 months, has t he [employer], gas, oil or water company threatened to [...] * Telephone Encounter - Deborah Hook - 06/29/2024 3:36 PM EST TC from pt requesting medication refill. Medications needing refill : traMADol (Ultram) 50 MG tablet To be sent to: [facility]/pharmacy #[id number] documented in this encounter Plan of Treatment Upcoming Encounters Date Type Department Care Team (Late st Contact Info) Description 12/08/2024 3:45 PM EDT Office Visit [facility] [address] [place] [phone] Patricia Berry MD [address] [place] [phone] 01/05/2025 11:00 AM EDT Office Visit [facility] [address] [place] [phone] documented as of this encounter Goals Goal [...] documented as of this encounter Care Teams Transitional Nurse Relationship Specialty Start Date End Date Patricia Berry MD [address] [place] [address] PCP - General Family Medicine 05/11/21 Craig Ochoa, PharmD [address] [place] [address] Pharmacist Internal Medicine 05/24/23 documented as of this encounter
--- OUTSIDE RECORDS SUMMARY | 2024-11-17 17:12 | XMS_ITS | Encounter Summary ---
Author Organization [employer] Address [address] [facility] 7[address] [place] [address] Care Team Providers Care Independent Marketing Consultant Name Role Phone Patricia Berry MD Primary Care Provider [phone] Craig Ochoa PharmD Unavailable [phone] Reason for Visit * Reason Onset Date Comments Med Refill 10/08/2024 Encounter Details Date Type Department Care Team ([facility] st Contact Info) Description 10/08/2024 Telephone [facility] [address] [place], [place] [phone] Patricia Berry MD [address] [place], [place] [phone] Med Refill Social History Tobacco Use Types [...] the past 12 months, has t he [employer], gas, oil or water [employer] threatened to shut off services in your [...] * Telephone Encounter - Bert Arellano - 10/08/2024 9:58 AM EST TC from pt requesting medication refill. Medications needing refill : traMADol (Ultram) 50 MG tablet To be sent to: [facility]/pharmacy [address] [place] [address] documented in this encounter Plan of Treatment Upcoming Encounters Date Type Department Care Team (Late st Contact Info) Description 12/08/2024 3:45 PM EDT Office Visit [facility] [address] [place] [phone] Patricia Berry MD [address] [place] [phone] 01/05/2025 11:00 AM EDT Office Visit [facility] [address] [place] [phone] documented as of this encounter Goals Goal [...] documented as of this encounter Care Teams Independent Marketing Consultant Relationship Specialty Start Date End Date Patricia Berry MD [address] [place] [address] PCP - General Family Medicine 05/11/21 Craig Ochoa, PharmD [address] [place] [address] Pharmacist Internal Medicine 05/24/23 documented as of this encounter
--- OUTSIDE RECORDS SUMMARY | 2024-11-17 17:12 | XMS_ITS | Encounter Summary ---
Author Organization [employer] Address [address] [facility] 7t [place] [address] Care Team Providers Care Staining Machine Operator Name Role Phone Patricia Berry MD Primary Care Provider [phone] Craig Ochoa PharmD Unavailable [phone] Reason for Visit * Reason Onset Date Comments FYI 04/06/2024 Encounter Details Date Type Department Care Team ([facility] st Contact Info) Description 04/06/2024 Telephone [facility] [address] [place], [place] [phone] Patricia Beryr MD [address] [place], [place] [phone] FY Social History Tobacco Use Types Packs/Day Years [...] Telephone Encounter - Edmundo Márquez - 04/06/2024 1:22 PM EDT Tc from patient calling to inform the provider of the knee replacement procedure on 04/22 documented in this encounter Plan of Treatment Upcoming Encounters Date Type Department Care Team (Late st Contact Info) Description 12/08/2024 3:45 PM EDT Office Visit [facility] [address] [place] [phone] Patricia Berry MD [address] [place] [phone] 01/05/2025 11:00 AM EDT Office Visit [facility] [address] [place] [address] documented as of this encounter Goals Goal [...] documented as of this encounter Care Teams Staining Machine Operator Relationship Specialty Start Date End Date Patricia Berry MD [address] [place] [address] PCP - General Family Medicine 05/11/21 Craig Ochoa, PharmD [address] [place] [phone] Pharmacist Internal Medicine 05/24/23 documented as of this encounter
--- OUTSIDE RECORDS SUMMARY | 2024-11-17 17:12 | XMS_ITS | Encounter Summary ---
Author Organization [employer] Address [address] [facility] 7[address] [place] [address] Care Team Providers Care Demand Planner Name Role Phone Patricia Berry MD Primary Care Provider [phone] Craig Ochoa PharmD Unavailable [phone] Reason for Visit * Reason Comments Med Refill Encounter Details Date Type Department Care Team ([facility] st Contact Info) Description 03/07/2024 Refill [facility] [address] [place], [place] [phone] Patricia Berry MD [address] [place] [address] Chronic pain syndrome Social History Tobacco Use [...] 12/08/2024 3:45 PM EDT Office Visit [facility] [address] [place] [phone] Patricia Berry MD [address] [place] [address] 01/05/2025 11:00 AM EDT Office Visit [address] [address] documented as of this encounter Goals Goal Patient Goal Type Associated Problems Recent Progress Patient-Stated? Author Blood Pressure < 140/90 Blood Pressure 120/92( 025 10:38 AM EST) No Craig Ochoa, ShawnD documented as of this encounter Visit Diagnoses Diagnosis Chronic pain syndrome documented in this encounter Additional Health Concerns Assessment Noted Time PHQ-9 Depression Total Score: 0 11/27/19 24 10:58 AM EDT documented as of this encounter Care Teams Demand Planner Relationship Specialty Start Date End Date Patricia Berry MD [address] [place] [phone] PCP - General Family Medicine 05/11/21 Craig Ochoa, ShawnD [address] [place] [phone] Pharmacist Internal Medicine 05/24/23 documented as of this encounter
--- OUTSIDE RECORDS SUMMARY | 2024-11-17 17:12 | XMS_ITS | Data Portability ---
Author Organization [place] [facility], [facility] Address [address] [place] [address] Care Team Providers Care Consulting Application Engineer Name Role Phone NENITA HILL Primary Care Provider [phone] Assessment Encounter Date Assessment Date Assessment LastModified by Organization Details LastModified Time 06/05/2024 06/05/2024 Imaging: Imaging ordered, independently reviewed and interpreted by Pasquale Hadley MD reveals the following findings: XR Knee Left Knee: Three views of the knee were obtained including AP, sunrise, and lateral views. Status post total knee arthroplasty. No evidence of complication, well fixed, well aligned. There is no evidence of loosening or migration. There is no evidence of osteolysis. No fractures are present. Alignment: Neutral Impression: Status post left total knee arthroplasty, 6 weeks out Plan: The patient is doing well, continue activities as tolerated. Follow up with repeat radiographs in one year , or sooner if problems arise. [email or web address] Not available 06/05/2024 16:03:44 Plan of Treatment Reminders Order Date Submit Date Provider Last Modified By Organization Details Last Modified Time Details Appointments RECHECK 15 2024 01:00P Mayela Danielle CNP Not available Not available Not available Lab None recorded . Referral physical therapis t referral - Evaluate & RxLumbar Stabiliz ation Program 2024 025 [email or web address] Not available 11/10/2024 15:39:54 Procedures None recorded . Surgeries None recorded . Imaging XR, knee, 4 or more view - room 316 rt knee 4v cw 2024 025 [email or web address] [facility], [address], [address], [place], [address], 10/20/2024 10:33:54 XR, knee, 3 view - room 316 lt knee 3v cw 20[email or web address] [facility], [address], [address], [place], [address], 10/20/2024 10:33:54 XR, lumbar spine, 2 view - RM 302 LS [email or web address] [facility], [address], [address], [place], [address], 10/22/2024 12:03:18 XR, knee, 3 view - 201 3v 2nd po LTKR 2023 [email or web address] [facility], [address], [address], [place], [address], 06/25/2024 08:50:34 Medication Orders pregabal in 75 mg capsule 2024 025 [id number], [address] [place], [address], 10/28/2024 13:13:38 diclofen ac sodium 75 mg tablet,d elayed release 2024 025 [id number], [address] [place], [address], 10/28/2024 13:17:22 Methylpr ed DP 4 mg tablets in a dose pack 2024 025 [id number], [address] [place], [address], 10/07/2024 16:27:21 pregabal in 75 mg capsule 2024 025 [id number], [address] [place], [address], 10/07/2024 16:27:22 baclofen 10 mg tablet 2023 025 [id number], [address] [facility], [place], [address], 10/08/2024 10:57:11 Patient TargetsNo targets recorded. Patient InstructionsNo instructions recorded. Reason for Referral Physical Therapist Referral for Lumbar radiculopathy Evaluate & RxLumbar Stabilization Program Referring Physician: Silvia Danielle, Orthopedic Surgery, Encounter Date: 10/28/2024 Results Created Date Observation Date Name Description Value Unit Range Abnormal Flag Note LastModifiedBy Organization Detail LastModifiedTime 05/27/2005/28/2024 CBC WITH DIFFE RENTI AL/PL ATELE T WBC 8.7 x10e3 /uL 3.4-10 .8 normal Not Available [facility] ([facility]) [address] [place], [address], 05/28/2024 08:09:27 05/27/2005/28/2024 CBC WITH DIFFE RENTI AL/PL ATELE T RBC 4.67 x10e6 /uL 4.14-5 .80 normal Not Available [facility] ([facility]) [address] [place], [address], 05/28/2024 08:09:27 05/27/20 24 05/28/2024 CBC WITH DIFFE RENTI AL/PL ATELE T hemoglobin 13.5 g/dL 13.0-1 7.7 normal Not Available [facility] ([facility]) [address] [place], [address], 05/28/2024 08:09:27 05/27/2005/28/2024 CBC WITH DIFFE RENTI AL/PL ATELE T hematocrit 41.6 % 37.5-5 1.0 normal Not Available [facility] ([facility]) [address] [place], [address], 05/28/2024 08:09:27 05/27/20 24 05/28/2024 CBC WITH DIFFE RENTI AL/PL ATELE T MCV 89 fL 79-97 normal Not Available [facility] ([facility]) [address] [facility], [place], [address], 05/28/2024 08:09:27 05/27/20 24 05/28/2024 CBC WITH DIFFE RENTI AL/PL ATELE T MCH 28.9 pg 26.6-3 3.0 normal Not Available [facility] ([facility]) [address] [facility], [place], [address], 05/28/2024 08:09:27 05/27/20 24 05/28/2024 CBC WITH DIFFE RENTI AL/PL ATELE T MCHC 32.5 g/dL 31.5-3 5.7 normal Not Available [facility] ([facility]) [address] [facility], [place], [address], 05/28/2024 08:09:27 05/27/2005/28/2024 CBC WITH DIFFE RENTI AL/PL ATELE T RDW 13.8 % 11.6-1 5.4 Not Available [facility] ([facility]) [address] [place], [address], 05/28/2024 08:09:27 05/27/20 24 05/28/2024 CBC WITH DIFFE RENTI AL/PL ATELE T platelets 310 x10e3 /uL 150-45 0 normal Not Available [facility] ([facility]) [address] [place], [address], 05/28/2024 08:09:27 05/27/20 24 05/28/2024 CBC WITH DIFFE RENTI AL/PL ATELE T neutrophils 53 % not estab. normal Not Available [facility] ([facility]) [address] [facility], [place], [address], 05/28/2024 08:09:27 05/27/20 24 05/28/2024 CBC WITH DIFFE RENTI AL/PL ATELE T lymphs 29 % not estab. normal Not Available [facility] ([facility]) [address] [facility], [place], [address], 05/28/2024 08:09:27 05/27/2005/28/2024 CBC WITH DIFFE RENTI AL/PL ATELE T monocytes 10 % not estab. normal Not Available [facility] ([facility]) [address] [facility], [place], [address], 05/28/2024 08:09:27 05/27/2005/28/2024 CBC WITH DIFFE RENTI AL/PL ATELE T eos 6 % not estab. normal Not Available [facility] ([facility]) [address] [facility], [place], [address], 05/28/2024 08:09:27 05/27/20 24 05/28/2024 CBC WITH DIFFE RENTI AL/PL ATELE T basos 1 % not estab. normal Not Available [facility] ([facility]) [address] [facility], [place], [address], 05/28/2024 08:09:27 05/27/2005/28/2024 CBC WITH DIFFE RENTI AL/PL ATELE T immature cells CHIEF LENDING OFFICER Not Available [facility] ([facility]) [address] [facility], [place], [address], 05/28/2024 08:09:27 05/27/2005/28/2024 CBC WITH DIFFE RENTI AL/PL ATELE T neutrophils (absolute) 4.6 x10e3 /uL 1.4-7. 0 normal Not Available [facility] ([facility]) [address] [place], [address], 05/28/2024 08:09:27 05/27/20 24 05/28/2024 CBC WITH DIFFE RENTI AL/PL ATELE T lymphs (absolute) 2.5 x10e3 /uL 0.7-3. 1 normal Not Available [facility] ([facility]) [address] [facility], [place], [address], 05/28/2024 08:09:27 05/27/20 24 05/28/2024 CBC WITH DIFFE RENTI AL/PL ATELE T monocytes(ab solute) 0.9 x10e3 /uL 0.1-0. 9 normal Not Available [facility] ([facility]) [address] [facility], [place], [address], 05/28/2024 08:09:27 05/27/20 24 05/28/2024 CBC WITH DIFFE RENTI AL/PL ATELE T eos (absolute) 0.6 x10e3 /uL 0.0-0. 4 above high normal Not Available [facility] ([facility]) [address] [facility], [place], [address], 05/28/2024 08:09:27 05/27/20 24 05/28/2024 CBC WITH DIFFE RENTI AL/PL ATELE T baso (absolute) 0.0 x10e3 /uL 0.0-0. 2 normal Not Available [facility] ([facility]) [address] [facility], [place], [address], 05/28/2024 08:09:27 05/27/20 24 05/28/2024 CBC WITH DIFFE RENTI AL/PL ATELE T immature granulocytes 1 % not estab. Not Available [facility] ([facility]) [address] [facility], [place], [address], 05/28/2024 08:09:27 05/27/20 24 05/28/2024 CBC WITH DIFFE RENTI AL/PL ATELE T immature grans (abs) 0.1 x10e3 /uL 0.0-0. 1 Not Available [facility] ([facility]) [address] [facility], [place], [address], 05/28/2024 08:09:27 05/27/20 24 05/28/2024 CBC WITH DIFFE RENTI AL/PL ATELE T NRBC CHIEF LENDING OFFICER Not Available [facility] ([facility]) [address] [facility], [place], [address], 05/28/2024 08:09:27 05/27/20 24 05/28/2024 CBC WITH DIFFE RENDIPAK AL/PL ATELE T hematology comments: CHIEF LENDING OFFICER Not Available [facility] ([facility]) [address] [facility], [place], [address], 05/28/2024 08:09:27 05/27/20 24 05/28/2024 SEDIM ENTAT ION RATE- WESTE RGREN sedimentatio n rate-westerg lauren 66 mm/HR 0-30 above high normal Not Available [facility] ([facility]) [address] [facility], [place], [address], 05/28/2024 08:09:28 05/27/20 24 05/28/2024 C-PHUONG CTIVE PROTE IN, QUANT C-reactive protein, quant 24 mg/L 0-10 above high normal Not Available [facility] ([facility]) [address] [facility], [place], [address], 05/28/2024 08:09:29 05/05/20 24 05/05/2024 US, neelle x, venou s, lower extre mity No observ ation record ed. [email or web address] [facility] [facility] [address], [place], [address], 05/08/2024 07:26:26 05/07/20 24 05/07/2024 XR, knee, 3 view [email or web address] ?Encry pted=s hAaTro YD8dLq bEUv6g %2BXZw aYqtaq 0bqfl% 2Fg9IQ a4ajBk vP9nXo QUaueC m3YtLR FvZlgJ JJ8mAn HZtai3 5i4204 AC0Kqa nSFVaG vKiQtr Mw INTERFACE [facility] [address], [place], [address], 05/07/2024 10:17:47 05/07/20 24 05/07/2024 XR, knee, 3 view [email or web address] ?Encry pted=s hAaTro YD8dLq bEUv6g %2BXZw aYqtaq 0bqfl% 2Fg9IQ a4ajBk vP9nXo QUaueC m3YtLR FvZlgJ [place] HZtai3 2o0198 AC0Kqa nSFVaG vKiQtr MwF INTERFACE [facility] [address], [place], [address], 05/07/2024 10:17:49 06/05/20 24 06/05/2024 XR, knee, 3 view [email or web address] ?Encry pted=s hAaTro YD8dLq bEUv6g %2BXZw aYqtaq 0bqfl% 2Fg9IQ a4ajBk vP9nXo QUaueC m3YtLR FvZlgJ [place] HZtai3 7u8263 AC0Kqa HyCUaK mKiQtr MwF INTERFACE [facility] [address] [facility] [facility] [address] [facility] [address], [place], [address], 06/05/2024 14:57:19 06/05/20 24 06/05/2024 XR, knee, 3 view [email or web address] ?Encry pted=s hAaTro YD8dLq bEUv6g %2BXZw aYqtaq 0bqfl% 2Fg9IQ a4ajBk vP9nXo QUaueC m3YtLR FvZlgJ JJ8mAn HZtai3 9w2414 AC0Kqa HyCUaK mKiQtr MwF INTERFACE [facility] [address], [place], [address], 06/05/2024 14:57:21 10/07/19 25 10/07/2024 XR, lumba r spine , 2 view [email or web address] ?Encry pted=s hAaTro YD8dLq bEUv6g %2BXZw aYqtaq 0bqfl% 2Fg9IQ a4ajBk vP9nXo QUaueC m3YtLR FvZlgJ JJ8mAn HZtai3 1i8281 AC0Kqb XmDWae mKiQtr MwF INTERFACE [facility] [address], [place], [address], 10/07/2024 15:59:18 10/07/19 25 10/07/2024 XR, lumba r spine , 2 view [email or web address] ?Encry pted=s hAaTro YD8dLq bEUv6g %2BXZw aYqtaq 0bqfl% 2Fg9IQ a4ajBk vP9nXo QUaueC m3YtLR FvZlJ JJ8mAn HZtai3 3x9452 AC0Kqb XmDWae mKiQtr MwF INTERFACE [facility] [address] [facility] [facility] [address] [facility] [address], [place], [address], 10/07/2024 15:59:20 10/08/19 25 10/08/2024 XR, knee, 3 view [email or web address] ?Encry pted=s hAaTro YD8dLq bEUv6g %2BXZw aYqtaq 0bqfl% 2Fg9IQ a4ajBk vP9nXo QUaueC m3YtLR FvZlg JJ8mAn HZtai3 4b0048 AC0Kqb XiFUaW lKiQtr MwF INTERFACE [facility] [address], [place], [address], 10/08/2024 11:01:33 10/08/19 25 10/08/2024 XR, knee, 3 view [email or web address] ?Encry pted=s hAaTro YD8dLq bEUv6g %2BXZw aYqtaq 0bqfl% 2Fg9IQ a4ajBk vP9nXo QUaueC m3YtLR FvZlgJ JJ8mAn HZtai3 3t3968 AC0Kqb XiFUaW lKiQtr MwF INTERFACE [facility] [address], [place], [address], 10/08/2024 11:01:35 Result Notes None recorded. Problems Name Problem SNOMED Code Status Onset Date Resolution Date Notes Provider Name and Address Organization Details Recorded Time No complaint s 688515839 Active Status: 'I'; Not Available [facility] 4 09:12:04 Osteoarth ritis of left knee joint 627987231444 109 Active 2023 Pasquale Hadley MD [address], [place], [address] , [facility] 4 12:44:49 Osteoarth ritis of right knee joint 458969506241 100 Active 2023 Pasquale Hadley MD [address], [place], [address] , [facility] 4 12:44:59 History of arthropla sty of left knee 997670234149 9104 Active 2023 Pasquale Hadley MD [address], [place], [address] , [facility] 4 17:40:32 History of left total knee replaceme nt 522369512742 9105 Active 2023 Pasquale Hadley MD [address], [place], [address] , [facility] 4 16:03:43 Pain of knee region 1578267467 Active 2024 colton serrano [facility] 5 10:50:39 Acute meniscal tear, medial, periphera l detachmen t 198509137 Active 2013 Status: 'A'; Not Available [facility], [facility]–1983 4 10:56:46 Chondroma lacia of left patella 172951405626 106 Active 2016 Problem Code: M22.42; Problem Code Type: ICD-10; Status: 'A'; Not Available [facility] 4 10:56:46 Low back pain 009546530 Active 2023 RADHA serrano, [facility] 4 10:05:48 Bilateral osteoarth ritis of knees 229228338387 107 Active 2023 Shara Lombardo PA-C [address], [place], [address] , [facility] 15:08:51 Problem Notes None recorded. Procedures Surgical History Date Name Laterality Status Provider Name and Address Organization Details Recorded Time 5 Knee Kenalog 1cc L/R completed Kellie Muse PA-C [address], [place], [address], [facility] 10/08/2024 15:16:41 4 92982 Therapeutic Exercise (1:1) completed Dorie Parks PATENT LITIGATION ASSOCIATE [address], [place], [address], [facility] 05/20/2024 04:51:26 4 10456: Hot or Cold Pack completed Dorie Parks PATENT LITIGATION ASSOCIATE [address], [place], [address], [facility] 05/20/2024 04:57:00 4 62624: Manual therapy completed Dorie Parks PTA [address], [place], [address], [facility] 05/20/2024 04:51:35 4 24434 Therapeutic Exercise (1:1) completed Efe Grijalva DPT [address], [place], [address], [place] [facility] 05/14/2024 14:47:18 4 66836: Low complexity PT Eval completed Efe Grijalva DPT [address], [place], [address], [place] [facility] 05/14/2024 14:47:22 4 Knee Kenalog 40 1cc Injection, Bilateral completed Shara Lombardo PA-C [address], [place], [address], [place] [facility] 01/14/2024 15:08:41 Imaging Results Imaging Date Name Status LastModified by Organiz ation Details LastModified Time 05/05/2024 US, duplex, venous, lower extremity completed [email or web address] [facility] [address], [place], [address], 05/08/2024 07:26:26 05/07/2024 XR, knee, 3 view completed INTERFACE [facility] [address], [place], [address], 05/07/2024 10:17:47 05/07/2024 XR, knee, 3 view completed INTERFACE [facility] [address], [place], [address], 05/07/2024 10:17:49 06/05/2024 XR, knee, 3 view completed INTERFACE [facility] [address], [place], [address], 06/05/2024 14:57:19 06/05/2024 XR, knee, 3 view completed INTERFACE [facility] [address], [place], [address], 06/05/2024 14:57:21 10/07/2024 XR, lumbar spine, 2 view completed INTERFACE [facility] [address], [place], [address], 10/07/2024 15:59:18 10/07/2024 XR, lumbar spine, 2 view completed INTERFACE [facility] [address], [place], [address], 10/07/2024 15:59:20 10/08/2024 XR, knee, 3 view completed INTERFACE [facility] [address], [place], [address], 10/08/2024 11:01:33 10/08/2024 XR, knee, 3 view completed INTERFACE [facility] [address], [place], [address], 10/08/2024 11:01:35 Procedure Notes None recorded. Medical Equipment None Reported. Allergies Allergen ID Allergen Name Allergen Category Reaction Reaction Severity Criticality Documentation Date Start Date Code Code System Note Provider Name and Address Organization Details Recorded Time [id number] Celebrex medicatio n Not available Not available Not available 10/28/2024 69706 7 RxNorm NABIL serrano [facility] 5 07:18:56 15246 egg extract food,medi cation Not available Not available Not available 10/14/20232014 21500 15 RxNorm NABIL serrano [facility] 5 07:19:01 Medications Name Sig Start Date Stop Date Status Note LastModified by Organization Details LastModified Time celecoxib 200 mg capsule TAKE 1 CAPSULE BY MOUTH EVERY DAY 10/08 completed Not Available Not Available Not Available prednisone 10 mg tablet PLEASE SEE ATTACHED FOR DETAILED DIRECTION S 10/08 completed Not Available Not Available Not Available ipratropium 0.5 mg-albutero l 3 mg (2.5 mg base)/3 mL nebulizatio n soln 3 ML INHALED 2 TIMES A DAY FOR 30 DAYS active Not Available Not Available No t Available cetirizine 10 mg tablet TOME RADHA TABLETA TODOS LOS D 10/08 completed Not Available Not Available Not Available azithromyci n 250 mg tablet TOME RADHA TABLETA POR V A ORAL 3X A WEEK active Not Available Not Available No t Available ibuprofen 800 mg tablet TAKE 1 TABLET BY MOUTH FOUR TIMES EVERY DAY WITH FOOD NEEDED active Not Available Not Available No t Available tizanidine 4 mg tablet TOME RADHA TABLETA POR VIA ORAL SIL VECES AL YONATHAN FOR 30 DAYS active Not Available Not Available No t Available prednisone 20 mg tablet TAKE 2 TABS POR V A ORAL DAILY X 5 DAYS, THEN 1 TABLET DAILY X 5 DAYS 10/08 completed Not Available Not Available Not Available topiramate 25 mg tablet TOME ARDHA TABLETA TODOS LOS D AL ACOSTARSE 10/08 completed Not Available Not Available Not Available metronidazo le 500 mg tablet TOME RADHA TABLETA DOS VECES AL D A 10/08 completed Not Available Not Available Not Available allopurinol 100 mg tablet TOME DOS TABLETAS POR V A ORAL TODOS LOS D 10/08 completed Not Available Not Available Not Available tramadol 50 mg tablet TAKE 1 TABLET (50 MG) BY MOUTH EVERY 8 (EIGHT) HOURS FOR 14 DAYS. active Not Available Not Available No t Available acetaminoph en 500 mg tablet TOME DOS TABLETAS POR V A ORAL CADA OCHO HORAS CUANDO SEA NECESARIO PARA EL DOLOR 10/08 completed Not Available Not Available Not Available ketorolac 10 mg tablet TOME RADHA TABLETA SIL VECES AL D A CUANDO SEA NECESARIO PARA EL DOLOR POR 5 D 10/08 completed Not Available Not Available Not Available cefadroxil 500 mg capsule TAKE 1 CAPSULE BY MOUTH EVERY 12 HOURS FOR 10 DAYS 10/08 completed Not Available Not Available Not Available aspirin 325 mg tablet,angela yed release Take 1 tablet twice a day by oral route for 14 days. 10/08 completed Not Available Not Available Not Available baclofen 10 mg tablet TAKE 1 TABLET POR V A ORAL 3 TIMES A DAY NEEDED FOR 14 DAYS, FOR MUSCLE SPASMS. 10/08 completed Not Available Not Available Not Available levothyroxi ne 50 mcg tablet TAKE 1 TABLET (50 MCG) BY MOUTH IN THE MORNING. TAKE AT LEAST 40 MINUTES BEFORE MEAL active Not Available Not Available No t Available pseudoephed rine-guaife nesin ER 80-700 mg tablet,exte nded release 1TAB Q4-[address] WHILE ON THIS MEDICATIO N 03/11 completed Statu s: 'Disc ontin ued'; Not Available Not Available Not Available losartan 25 mg tablet TAKE 1 TABLET BY MOUTH IN THE MORNING. TAKE 1 TABLET BY MOUTH IN THE EVENING. DO NOT TAKE IF SBP<120 active Not Available Not Available No t Available docusate sodium 100 mg capsule TOME 1 C PSULA POR V A ORAL DOS VECES AL D A active Not Available Not Available No t Available omeprazole 20 mg capsule,del ayed release TOME 1 C PSULA (20 MG) POR V A ORAL ANTES DEL DESAYUNO DO NOT CRUSH OR CHEW active Not Available Not Available No t Available diclofenac sodium 75 mg tablet,angela yed release PLEASE SEE ATTACHED FOR DETAILED DIRECTION S active Not Available Not Available No t Available montelukast 10 mg tablet TOME 1 TABLETA POR V A ORAL TODOS LOS D active Not Available Not Available No t Available hydrochloro thiazide 25 mg tablet TOME 1 TABLETA POR V A ORAL TODOS LOS D active Not Available Not Available No t Available levofloxaci n 500 mg tablet TOME RADHA TABLETA TODOS LOS D 10/08 completed Not Available Not Available Not Available levofloxaci n 750 mg tablet TOME RADHA TABLETA POR V A ORAL EVERY 24 HOURS FOR 7 DAYS 10/08 completed Not Available Not Available Not Available methylpredn isolone 4 mg tablets in a dose pack TOME 6 TABLETAS EL PRIMER D A SEG N LO INDICA EL PAQUETE, Y REDUZCA 1 TABLETA CADA D A POR 6 D active Not Available Not Available No t Available albuterol sulfate HFA 90 mcg/actuati on aerosol inhaler TOME 2 INHALACIO KALPESH 4 VECES AL D A CUANDO SEA NECESARIO PARA LA FALTA DE RESPIRACI N OR WHEEZING active Not Available Not Available No t Available hydromorpho ne 4 mg tablet TAKE 1/2 (HALF) TABLET TO 1 TABLET BY MOUTH EVERY 4 HOURS NEEDED FOR SEVERE PAIN 10/08 completed Not Available Not Available Not Available fluticasone propionate 50 mcg/actuati on nasal spray,suspe nsion USE 1 SPRAY EN CADA FOSA NASAL DOS VECES AL D A active Not Available Not Available No t Available cholecalcif goldy (vitamin D3) 125 mcg (5,000 unit) capsule TOME RADHA C PSULA TODOS LOS D 10/08 completed Not Available Not Available Not Available doxycycline hyclate 100 mg tablet PLEASE SEE ATTACHED FOR DETAILED DIRECTION S 10/08 completed Not Available Not Available Not Available ipratropium bromide 21 mcg (0.03 %) nasal spray INSTILL 2 SPRAYS INTO EACH NOSTRIL EVERY DAY IF NEEDED FOR CONGESTIO N active Not Available Not Available No t Available loratadine 10 mg tablet TOME RADHA TABLETA TODOS LOS D 10/08 completed Not Available Not Available Not Available amoxicillin 875 mg-potassiu m clavulanate 125 mg tablet TOME RADHA TABLETA DOS VECES AL D A POR 5 D 10/08 completed Not Available Not Available Not Available oxycodone 5 mg tablet TOME RADHA TABLETA POR V A ORAL CADA SEIS HORAS PARA DOLOR GENESIS CUANDO SEA NECESARIO 10/08 completed Not Available Not Available Not Available escitalopra m 10 mg tablet TOME 1 TABLETA POR V A ORAL TODOS LOS D EN LA MA KHADRA active Not Available Not Available No t Available Saline Nasal 0.65 % spray aerosol USE 1-2 SPRAY ON EACH NOSTRIL EVERY 2-3 HOURS NEEDED FOR NASAL CONGESTIO N active Not Available Not Available No t Available tadalafil 10 mg tablet TAKE ONE TABLET BY MOUTH EVERY DAY FOR SEXUAL ACTIVITY 10/08 completed Not Available Not Available Not Available pregabalin 75 mg capsule Take 1 capsule twice a day by oral route as directed for 30 days, for pain. 2024 active Not Available Not Available Not Avai lable testosteron e 50 mg/5 gram (1 %) transdermal gel APPLY 1 PACKET TRANSDERM ALLY DAILY active Not Available Not Available No t Available budesonide- formoterol HFA 160 mcg-4.5 mcg/actuati on aerosol inhaler INHALE DANDO DOS SOPLIDOS POR V A ORAL DOS VECES AL D A active Not Available Not Available No t Available oxycodone 10 mg tablet TAKE 1/2 (HALF) TO 1 TABLET BY MOUTH EVERY 4 HOURS NEEDED FOR SEVERE PAIN 10/08 completed Not Available Not Available Not Available diclofenac 1 % topical gel APPLY 1 -2 GRAMS TO THE AFFECTED AREA TWICE A DAY 10/08 completed Not Available Not Available Not Available oxycodone HCl-oxycodo ne-ASA 1Q 4-[address] WHILE ON THIS MEDICATIO N 10/08 completed Statu s: 'Curr ent'; Not Available Not Available Not Available blood pressure test kit-large cuff USE TO CHECK BLOOD PRESSURE ONCE DAILY AND NEEDED active Not Available Not Available No t Available blood pressure kit-extra large cuff USE TO CHECK BLOOD PRESSURE DAILY DIRECTED active Not Available Not Available No t Available Incruse Ellipta 62.5 mcg/actuati on powder for inhalation INHALE UN SOPLIDO POR V A ORAL TODOS LOS D active Not Available Not Available No t Available Wixela Inhub 500 mcg-50 mcg/dose powder for inhalation INHALE UN SOPLIDO POR VIA ORAL DOS VECES AL YONATHAN 10/08 completed Not Available Not Available Not Available Wegovy 0.25 mg/0.5 mL subcutaneou s pen injector 10/08 completed Not Available Not Available Not Available Zepbound 2.5 mg/0.5 mL subcutaneou s pen injector INJECT 0.5 ML (2.5 MG) SUBCUTANE OUSLY ONCE A WEEK active Not Available Not Available No t Available Vitals Date Recorded Body height Body mass index (BMI) Body weight Provider Name and Address Organization Details Last Updated DateTime 05/28/2024 177.8 cm 50.2 kg/m2 216146.33 g colton valenzuela [place] [facility] 05/28/2024 13:58:00 Date Recorded Body height Provider Name an d Address Organization Details Last Updated DateTime 06/05/2024 177.8 cm Pasquale painting MD [address] [facility] [address], [place], [address], [place] [facility] 06/05/2024 14:44:36 Date Recorded Body height Body mass index (BMI) Body weight Provider Name and Address Organization Details Last Updated DateTime 10/07/2024 177.8 cm 50.2 kg/m2 875569.33 g MATHEUS YOUNG [place] [facility] 10/07/2024 15:54:42 Date Recorded Body height Body mass index (BMI) Body weight Provider Name and Address Organization Details Last Updated DateTime 10/08/2024 177.8 cm 50.2 kg/m2 332775.33 g colton valenzuela [facility] 10/08/2024 10:46:32 Date Recorded Body height Body mass index (BMI) Body weight Provider Name and Address Organization Details Last Updated DateTime 10/28/2024 177.8 cm 50.2 kg/m2 261717.33 g NABIL COTTON [facility] 10/28/2024 12:56:34 Social History None recorded. Functional Status None recorded. Mental Status None recorded. Family History Nothing Reported. Medical History No medical history recorded. Past Encounters Encounter ID Performer Location Encounter Start Date Encounter Closed Date Diagnosis/Indication Diagnosis SNOMED-CT Code Diagnosis ICD10 Code Diagnosis Note [id number] Marcos Pfeiffer MD [facility] [place] [address] [place] [address] 10/29/2023 10:18:50 11/13/2023 19:41:31 Pain in left foot 0594661884 70897 M79.672 Postoperative visit 1836 74189 Z48.89 [id number] Chris Dumas MD [facility] [address] [place] [address] 11/26/2023 13:04:14 12/17/2023 07:15:05 [id number] Chris Dumas MD [place] [address] [place] [address] 12/18/2023 14:50:40 01/10/2024 09:08:50 Low back pain 087230457 M54.50 oxycodone [id number] SHIVAM Hooker [address] [place] [address] 01/14/2024 14:47:01 01/14/2024 15:34:53 Bilateral osteoarthritis of knees 9836923467 94322 M17.0 Nature of the diagnosis discussed with the patient today. Both surgical and nonsurgica l options were reviewed. At this point I have recommende d a repeat cortisone injection. Patient agrees with this plan. Patient tolerated the procedure well. Post injection precaution s reviewed. They will continue with conservati ve modalities including icing and elevating. Follow-up with us in 3 months for discussion of continued conservati ve management versus total joint arthroplas ty. [id number] Chris Dumas MD [facility] [address] [place] [address] 01/22/2024 15:06:36 02/26/2024 11:23:16 Lumbar radiculopathy 561529612 M54.16 Low back pain 147842087 M54.50 oxycodone Pain in lumbar spine 267 307986 M54.51 Cervical radiculopathy 86309897 M54.12 [id number] Chris Dumas MD [facility] [address] [place] [address] 01/31/2024 07:49:13 03/06/2024 10:33:26 Lumbar radiculopathy 507937635 M54.16 Postoperative visit 1836 67755 Z48.89 [id number] MD Mary Mercer [address] [place] [address] 03/10/2024 10:57:29 03/27/2024 07:46:32 Osteoarthritis of left knee joint 3417216832 34222 M17.12 Osteoarthr itis of right knee joint 4935194724 16268 M17.11 [id number] SHIVAM Meyers [address] [place] [address] 04/17/2024 10:50:17 05/13/2024 04:07:40 [id number] SHIVAM Rodriguez [address] [place] [address] 05/07/2024 09:52:19 05/26/2024 09:51:12 History of left total knee replacement 9185691427 135123 Z96.187 [id number] ARSLAN [facility] [address] [place] [address] 05/13/2024 08:25:12 05/13/2024 09:09:22 History of left total knee replacement 4015836908 327114 Z96.652 Z47.1 [id number] Mansoor Pyser, PT [facility] [address] [place] [address] 05/19/2024 11:16:44 05/19/2024 12:09:19 History of left total knee replacement 3382755966 710219 Z96.652 Z47.1 [id number] Kellie Muse PA-C [facility] [address] [place] [address] 05/28/2024 13:40:50 06/19/2024 09:56:09 Knee joint prosthesis present 1596626019 02 Z96.652 Postoperative visit 1836 58016 Z48.89 [id number] Pasquale Hadley MD [facility] [address] [place] [address] 06/05/2024 14:22:20 06/25/2024 08:50:33 History of left total knee replacement 6920188870 821582 Z96.913 [id number] Silvia Danielle, BODY LINE FINISHER [facility] [address] [place] [address] 10/07/2024 15:48:06 10/22/2024 12:03:18 Low back pain 641444055 M54.50 Lumbar radiculopathy 128 633356 M54.16 Postoperative visit 1836 18698 Z48.89 History of lumbar fusion 2914207856 9106 Z98.1 [id number] Kellie Muse PA-C [facility] [address] [place] [address] 10/08/2024 10:23:14 10/20/2024 10:33:54 History of left total knee replacement 8722747662 575942 Z96.652 Pain of knee region 1003 305891 M25.561 Osteoarthr itis of right knee joint 8247608558 95361 M17.11 Contusion of right knee 4257568186 5327074 S80.01XA Contusion of left knee 0689488011 8945828 S80.02XA [id number] Silvia Danielle, AILIN [facility] [address] [place] [address] 10/28/2024 12:45:36 11/10/2024 15:39:53 Low back pain 500898873 M54.50 Lumbar radiculopathy 128 931457 M54.16 Health Concerns Section Related Observation LastModified by Organization Detai ls LastModified Time None Recorded Concern Status LastModified by Organization Details LastModified Time None Recorded Advance Directives Directive None Recorded Payers Encounter Date Sequence Insurance Name Policy Number Policy Leiva Covered Member ID Leiva Member ID Guarantor Name 05/28/2024 1 [employer] - DOS ON OR AFTER 2022 - ONE CARE (MEDICARE REPLACEMENT/ADV ANTAGE - HMO) Brady Dale [id number] Brady Dale 06/05/2024 1 [employer] - DOS ON OR AFTER 2022 - ONE CARE (MEDICARE REPLACEMENT/ADV ANTAGE - HMO) Brady Dale [id number] Brady Dale 10/07/2024 1 [employer] - DOS ON OR AFTER 2022 - ONE CARE (MEDICARE REPLACEMENT/ADV ANTAGE - HMO) Brady Dale [id number] Brady Dale 10/08/2024 1 [employer] - DOS ON OR AFTER 2022 - ONE CARE (MEDICARE REPLACEMENT/ADV ANTAGE - HMO) Brady Dale [id number] Brady Dale 10/28/2024 1 [employer] - DOS ON OR AFTER 2022 - ONE CARE (MEDICARE REPLACEMENT/ADV ANTAGE - HMO) Brady Dale [id number] Brady Dale Notes Date Note Type Note Provider Name and Address Organization Details Recorded Time 05/28/2024 text/html I am seeing the patient today under the supervision of Dr. Bowen who was available but who did not see the patient. HPI: Patient comes in for follow-up, now 4 weeks status post left total knee arthroplasty. He is here due to increased pain at night. He indicates that his pain is tolerable during the day, but he has been unable to get comfortable at night. He is only getting short bursts of sleep. He previously had a prescription for baclofen and found that to be helpful. He is slowly progressing with physical therapy. Denies any neurovascular changes. He indicates that he took his nylon sutures out himself last week because they were irritating his skin. Denies any drainage from the incision. Past family, medical, social history and review of systems has been reviewed, updated and is located in the patient? s chart. Examination: The patient is well appearing and in no apparent distress. Alert and oriented x3. Gait is antalgic on the left. Examination of the left knee reveals a healing surgical incision without erythema or drainage. Neurovascularly intact. Range of motion from 0-105 degrees. No ligamentous instability to varus or valgus stress test at 0 or 30? ? ?. Calf is soft and nontender bilaterally. 5/5 strength of knee flexion and extension. Impression: 4 weeks status post left total knee arthroplasty Plan: I have refilled the patient's baclofen since this previously was benefiting him. I informed him that nighttime pain is very common postoperatively since it is difficult to get into a comfortable position. We reviewed his pain medication regimen. Additionally, as noted above, the patient removed his nylon sutures himself last week. His incision appears to be healing appropriately. I do not see any evidence for any retained sutures. No evidence for infection. He has a scheduled follow-up visit with Dr. Hadley which she will keep. He will continue working with physical therapy in the meantime to focus on his range of motion. All questions have been answered. Kellie Muse PA-C [address] [facility], [place], [address], [facility] 05/29/2024 14:06:57 06/05/2024 text/html History of prese nt illness:This patient follows up today and is now 6 weeks out from left total knee arthroplasty. Their pain is well controlled and they are progressing as expected with physical therapy. Able to do current activities without significant difficulty. They have no major complaints at this time and are satisfied with their current state of recovery.Past family, medical, social history and review of systems has been reviewed and updated, and is located in the patient? s chart. Pasquale Hadley MD [address], [place], [address], [facility] 06/05/2024 16:03:55 10/07/2024 text/html I am seeing the patient today under the supervision of Dr. Dove who was available but who did not see the patient. Surgery: L5-S1 decompression, fusionSurgery date: 12/02/2023Surgeon: Dr. Dumas HPI: 53-year-old man status post a posterior decompression instrumentation fusion L5-S1 for spondylolisthesis and spinal stenosis returns for recheck. Has not returned for post op checks since 01/31/[address] Dumas.Today, he reports fall on 09/17/2024 and wanted to make sure his back was okay. Slipped on ice and down his deck stairs. He states the fall made his LLE sciatica return. Pain increased with standing and walking. Also has left knee pain since fall and he is s/p TKR. WORK STATUS: not working Past family, medical, social history and review of symptoms have been reviewed, updated, and it is located in the patient's chart. MSK EXAM: examination of the lumbar spineTransitions: Patient able to arise from a seated position without difficulty. Gait slow but steady. No assistive device.Inspection: surgical scars healed well without evidence of infection. Non tender to touch.Bilateral lower extremities equal movement and strength 5/5. Positive sensation to touch. IMAGING: X-rays ordered, obtained, and independently reviewed at [facility] today. 2 views lumbar spine consistent with previous films. No failure or change in hardware. No new fracture. IMPRESSION & PLAN: Findings and situation discussed with patient.- Medrol dose pack and Pregabalin for pain. Medication education reviewed- Declined PT- offered f/u in 2-3 months vs prn basis, he opted for prn- appt with totals PA for left knee pain s/p fall and TKR history FOLLOW UP: prn Speech recognition power system engineer software was used to create portions of this document. An attempt at proofreading has been made to minimize errors. Please call for corrections. Silvia Danielle, BODY LINE FINISHER [address] [address], [place], [address], [facility] 10/07/2024 16:58:46 10/08/2024 text/html I am seeing the patient today under the supervision of Dr. Hadley who was available but who did not see the patient. HPI: Brady presents to the office today for an evaluation of his bilateral knees. He recently slipped on ice resulting in increased bilateral knee pain. He has a history of a left total knee arthroplasty performed in March of last year. He also has known right knee end-stage osteoarthritis. He indicates that his symptoms have been slowly improving since he fell. He complains of generalized anterior knee discomfort. He is able to fully weight-bear. Denies any instability. He takes seot-opa-vjkeujz medication intermittently for his pain. He is hoping to receive a cortisone injection for his right knee. PMH/PSH/MEDS/ALL/FMH/S OC HX/ROS are reviewed in detail per my medical intake sheet. General Exam: Vital signs are as noted below Mental status: Alert and lucid. Normal insight, affect and grooming. PHARMACY INFORMATICS SPECIALIST: Gross motor coordination is intact. No spasticity or clonus noted. EXAMINATION: The patient is well appearing and in no apparent distress. Alert and oriented x3. Gait is mildly antalgic. {{Right Left*}} knee reveals a surgical scar over the anterior knee, otherwise no deformity upon inspection. No joint effusion, edema, erythema, ecchymosis, or lesions. Neurovascularly intact. No localized tenderness. ROM is 0-120 degrees. No crepitus noted. Stability intact with anterior, posterior, and varus/valgus stress at both 0 and 30 degrees of flexion. 5/5 strength. Calf/leg compartments soft and compressible. {{Right* Left}} knee reveals {{varus* valgus no}} deformity upon inspection. No joint effusion, edema, erythema, ecchymosis, or lesions. Neurovascularly intact. Tenderness present along the {{medial* lateral medi al and lateral}} joint line. ROM is from 0-120 degrees. {{Crepitus* No crepitus}} noted. Stability intact with anterior, posterior, and varus/valgus stress at both 0 and 30 degrees of flexion. Positive {{flexion pinch* Steinmann's fle xion pinch and Steinmann's patella grind patella apprehension Rehana's }}. 5/5 strength. Calf/leg compartments soft and compressible. X-rays ordered, obtained and reviewed at [facility] Today include 4 views of bilateral knees. Images reveal left total knee arthroplasty components to be in good position and without evidence of loosening. There is severe end-stage right knee medial and patellofemoral compartment osteoarthritis. No acute fracture or lesion. IMPRESSION: Bilateral knee contusions, status post left total knee arthroplasty, right knee end-stage osteoarthritis PLAN: The patient was thoroughly counseled today regarding their knee condition, its natural history, and conservative versus surgical treatment options. The patient is interested in receiving an injection with corticosteroid. {{The right knee was* The left knee was Bilateral knees were}} prepped sterilely and an injection was administered utilizing 40mg of Kenalog and 4cc of 0.25% Marcaine. The patient tolerated the procedure well. Post-injection precautions were discussed. Recommended avoiding strenuous activity over the next 24-48 hours. Encouraged elevation of the leg, applying ice, and taking over the counter medication as needed. The patient is aware that the injection can be repeated as often as every 3 months. He currently has no interest in a total knee arthroplasty. Clinically his left knee looks fine today. His symptoms have been improving. If he does not notice further improvement in his symptoms he will call the office. Otherwise he will follow-up as needed. All questions answered. Kellie Muse PA-C [address] [place] [address] [address], [place], [address], [facility] 10/08/2024 15:18:18 10/28/2024 text/html I am seeing the patient today under the supervision of Dr. Dove who was available but who did not see the patient. Surgery: L5-S1 decompression, fusionSurgery date: 12/02/2023Surgeon: Dr. Dumas HPI: 53-year-old man status post a posterior decompression instrumentation fusion L5-S1 for spondylolisthesis and spinal stenosis returns for recheck. Has not returned for post op checks since 01/31/[address] Dumas. Last seen 10/07/2024 after fall and wanted to make sure his back was okay. Slipped on ice and down his deck stairs. the fall made his LLE sciatica return. Pain increased with standing and walking. Reports the prednisone greatly helped his pain but somewhat returning and still bothersome. Tried Lyrica twice but got a headache and threw them away. WORK STATUS: not working Past family, medical, social history and review of symptoms have been reviewed, updated, and it is located in the patient's chart. MSK EXAM: examination of the lumbar spineTransitions: Patient able to arise from a seated position without difficulty. Gait slow but steady. No assistive device.Inspection: surgical scars healed well without evidence of infection. Non tender to touch.Bilateral lower extremities equal movement and strength 5/5. Positive sensation to touch. IMAGING:- 2 views lumbar spine consistent with previous films. No failure or change in hardware. No new fracture. IMPRESSION & PLAN: Findings and situation discussed with patient.- recommend trying Pregabalin again. re-sent script. also recommend NSAID, other than celebrex. medication education reviewed- recommend physical therapy- if no improvement at follow up, can discuss MRI FOLLOW UP: 3 months, repeat XR s/p lumbar fusion Speech recognition power system engineer software was used to create portions of this document. An attempt at proofreading has been made to minimize errors. Please call for corrections. Silvia Danielle, BODY LINE FINISHER [address], [place], [address], [facility] - [facility] 10/28/2024 13:18:01
--- OUTSIDE RECORDS SUMMARY | 2024-11-17 17:12 | XMS_ITS | Encounter Summary ---
Author Organization [employer] Address [address] [facility] [address] [place] [address] Care Team Providers Care Computer Operations Supervisor Name Role Phone Patricia Berry MD Primary Care Provider [phone] Craig Ochoa PharmD Unavailable [phone] Reason for Visit * Reason Comments Med Change Request Encounter Details Date Type Department Care Team ([facility] st Contact Info) Description 05/12/2024 Refill [facility] MEDICINE [address] [place] [address] Patricia Berry MD [address] [place] [address] Seasonal allergies Social History Tobacco Use Types [...] Description 12/08/2024 3:45 PM EDT Office Visit [address] [address] Patricia Berry MD [address] [place] [address] 01/05/2025 11:00 AM EDT Office Visit [address] [address] documented as of this encounter Goals Goal Patient Goal Type Associated Problems Recent Progress Patient-Stated? Author Blood Pressure < 140/90 Blood Pressure 120/92( 025 10:38 AM EST) No Craig Ochoa, Caroline documented as of this encounter Visit Diagnoses Diagnosis Seasonal allergies Allergic rhinitis, cause unspecified documented in this encounter Additional Health Concerns Assessment Noted Time PHQ-9 Depression Total Score: 0 11/27/19 24 10:58 AM EDT documented as of this encounter Care Teams Computer Operations Supervisor Relationship Specialty Start Date End Date Patricia Berry MD [address] [place] [address] PCP - General Family Medicine 05/11/21 Craig Ochoa, ShawnD [address] [place] [address] Pharmacist Internal Medicine 05/24/23 documented as of this encounter
--- OUTSIDE RECORDS SUMMARY | 2024-11-17 17:12 | XMS_ITS | Encounter Summary ---
Author Organization [employer] Address [address] [facility] 7[address] [place] [address] Care Team Providers Care Information Systems Supervisor Name Role Phone Patricia Berry MD Primary Care Provider [phone] Craig Ochoa PharmD Unavailable [phone] Reason for Visit * Reason Onset Date Comments Med Refill 04/09/2023 Encounter Details Date Type Department Care Team ([facility] st Contact Info) Description 04/09/[address] [facility] MEDICINE [address] [place], [place] [phone] Patricia Berry MD [address] [place], [place] [phone] Med Refill Social History Tobacco Use Types [...] encounter Miscellaneous Notes * Telephone Encounter - Ashwini Tanner - 04/09/2023 1:33 PM EDT Tc from pt requesting medication refill on traMADol (Ultram) 50 MG tablet documented in this encounter Plan of Treatment Upcoming Encounters Date Type Department Care Team (Late st Contact Info) Description 12/08/2024 3:45 PM EDT Office Visit [address] [address] Patricia Berry MD [address] [place] [phone] 01/05/2025 11:00 AM EDT Office Visit [address] [address] documented as of this encounter Visit Diagnoses Not on filedocumented in this encounter Care Teams Information Systems Supervisor Relationship Specialty Start Date End Date Patricia Berry MD [address] [place] [address] PCP - General Family Medicine 05/11/21 Craig Ochoa, PharmD [address] [place] [address] Pharmacist Internal Medicine 05/24/23 documented as of this encounter
== END 2024-11-17 14:43 | disposition home or self-care (01) ==
LOC: HO.HPS 14:03
PROVIDERS: PCP Family Medicine; Visit Provider Hospitalist
DX: J45.51 Severe persistent asthma with (acute) exacerbation (principal); G47.33 Obstructive sleep apnea (adult) (pediatric); J40 Bronchitis, not specified as acute or chronic
CPT/HCPCS: 99214; G2211

== ENCOUNTER → 2024-11-17 14:03 | Outpatient (BNVA) | payer OTHER, SELFPAY | PROVIDERS: PCP Family Medicine; Visit Provider Hospitalist | DX: J45.51 Severe persistent asthma with (acute) exacerbation (principal); J40 Bronchitis, not specified as acute or chronic; G47.33 Obstructive sleep apnea (adult) (pediatric) | CPT/HCPCS: 99212 ==

== ENCOUNTER 2024-12-08 16:26 | Outpatient (REF) | payer OTHER, SELFPAY ==
[2024-12-08 17:34] LABS: MANUAL DIFF FLAG NO
[2024-12-08 17:45] LABS: Basophils Percent Auto 0.4 % (0-2); Eosinophils Absolute Auto 0.4 X10*3/uL (0.0-0.4); Eosinophils Percent Auto 4.6 % (0-4); Hematocrit 41.1 % (42.0-52.0); Hemoglobin 13.6 g/dl (14.0-18.0); Imm Gran Abs Auto 0.05 X10*3/uL (0.00-0.03); Imm Gran Pct Auto 0.5 % (0.0-0.4); Lymphocytes Absolute Auto 2.2 X10*3/uL (1.2-4.9); Lymphocytes Percent Auto 23.3 % (20-40); Mean Corpuscular HGB Conc 33.1 g/dl (31.0-36.0); Mean Corpuscular Hemoglobin 28.8 pg (27.0-33.0); Mean Corpuscular Volume 86.9 fL (80.0-98.0); Mean Platelet Volume 9.4 fL (9.4-12.4); Monocytes Absolute Auto 0.9 X10*3/uL (0.1-1.2); Monocytes Percent Auto 9.3 % (2-11); Neutrophils Absolute Auto 5.8 x10*3/uL (2.0-8.3); Neutrophils Percent Auto 61.9 % (45-73); Platelet Count 316 X10*3/uL (160-400); Red Blood Count 4.73 X10*6/uL (4.60-5.80); Red Cell Distribution Width 14.3 % (11.0-16.0); White Blood Count 9.3 X10*3/uL (4.8-10.8)
[2024-12-08 18:01] LABS: Uric Acid 8.2 mg/dL (3.4-7.0)
--- OUTSIDE RECORDS SUMMARY | 2024-12-08 18:33 | XMS_ITS | Encounter Summary ---
Author Organization [employer] Address 75 [facility] 7t [place] [address] Care Team Providers Care Youth Care Specialist Name Role Phone Patricia Berry MD Primary Care Provider [phone] Craig Ochoa PharmD Unavailable [phone] Reason for Visit * Reason Onset Date Comments chart prep 12/07/2024 Encounter Details Date Type Department Care Team ([facility] st Contact Info) Description 12/07/2024 Telephone [facility] [address] [place], [place] [phone] Patricia Berry MD [address] [place], [place] [phone] chart prep Social History Tobacco Use Types Packs/Day Years [...] Answer Date Recorded Patient Health Questionnaire-9 Score 10 12/08/2024 Patient Health Questionnaire-9 Score 10 12/08/2024 Last PHQ-9: Questionnaire Data Not on file 0 12/08/2024 Housing Stability Answer Date Recorded What is your housing situation today? I have srikanth kaplan 12/08/[address] you li ve. Do you have problems with any of the following? None of the above 12/08/2024 Food Insecurity Answer Date Recorded Within the past 12 months, y ou worried that your food would run out before you got money to buy more: Never True 12/08/2024 Within the past 12 months,th e food you bought just didn't last and you didn't have enough money to get more: Never True Transportation Answer Date Recorded In the past 12 months, has l ack of transportation kept you from medical appts, meetings, work or from getting things needed for daily living? No 12/08/2024 Utilities Answer Date Recorded In the past 12 months, has t he [employer], gas, oil or water company threatened to shut off services in your home? No 12/08/2024 Depression Answer Date Recorded Patient Health Questionnaire-2 Score 3 12/08/2024 Internet Access Answer Date Recorded Internet Access Q1 Yes 12/08/2024 Internet Access Q2 Not on file 12/08/2024 Sex and Gender Information Value Date Recorded Sex Assigned at Male 06/11/2022 10:27 AM EDT Legal Sex Male 10:27 AM EDT Gender Identity Choose not to disclose 10:27 AM EDT Sexual Orientation Choose not to disclose 2021 10:27 AM EDT documented as of this encounter Miscellaneous Notes * Telephone Encounter - Aranza Quintanilla [place] - 12/07/2024 11:01 AM EDT Chart Prep Labs: done Images: not done Vaccines due: Covid Due, Hep B Due, Flu Due, and Shingles in pharmacy Due Referrals: Completed Screenings: Not Applicable Overdue care gaps: SDOH, PQ9, GAD7, Disability , and Oral Health documented in this encounter Plan of Treatment Upcoming Encounters Date Type Department Care Team (Late st Contact Info) Description 01/05/2025 11:00 AM EDT Office Visit [facility] [address] [place] [address] documented as of this encounter Goals Goal Patient Goal Type Associated Problems Recent Progress Patient-Stated? Author Blood Pressure < 140/90 Blood Pressure 113/69( 025 3:47 PM EDT) No Craig Ochoa, PharmD documented as of this encounter Visit Diagnoses Not on filedocumented in this encounter Additional Health Concerns Assessment Noted Time PHQ-9 Depression Total Score: 0 11/27/19 24 10:58 AM EDT documented as of this encounter Care Teams Youth Care Specialist Relationship Specialty Start Date End Date Patricia Berry MD [address] [place] [address] PCP - General Family Medicine 05/11/21 Craig Ochoa, Caroline [address] [place] [address] Pharmacist Internal Medicine 05/24/23 documented as of this encounter
--- OUTSIDE RECORDS SUMMARY | 2024-12-08 18:33 | XMS_ITS | Encounter Summary ---
Author Organization [employer] Address 75 [facility] 7t [place] [address] Care Team Providers Care Cafe Or Restaurant Manager Name Role Phone Patricia Berry MD Primary Care Provider [phone] Craig Ochoa PharmD Unavailable [phone] Reason for Visit * Reason Onset Date Comments Appointment Request 10/12/2022 Encounter Details Date Type Department Care Team ([facility] st Contact Info) Description 10/12/2022 Telephone [facility] MEDICINE [address] [place], [place] [phone] Patricia Berry MD 230 [place], [place] [phone] Appointment Request Social History Tobacco Use Types [...] requesting to r/s appt for 10/12/2022 for MARKETING COMMUNICATIONS COORDINATOR. Pt was confused on the times. Please contact pt at [phone] documented in this encounter Plan of Treatment Upcoming Encounters Date Type Department Care Team (Late st Contact Info) Description 01/05/2025 11:00 AM EDT Office Visit [facility] MED[facility]INE [address] [place] [address] documented as of this encounter Visit Diagnoses Diagnosis Chronic pain syndrome documented in this encounter Care Teams Cafe Or Restaurant Manager Relationship Specialty Start Date End Date Patricia Berry MD [address] [place] [address] PCP - General Family Medicine 05/11/21 Craig Ochoa, PharmD [address] [place] [address] Pharmacist Internal Medicine 05/24/23 documented as of this encounter
--- OUTSIDE RECORDS SUMMARY | 2024-12-08 18:33 | XMS_ITS | Encounter Summary ---
Author Organization [employer] Address 75 [facility] 7t [place] [address] Care Team Providers Care Inspector Of Weights And Measures Name Role Phone Patricia Berry MD Primary Care Provider [phone] Craig Ochoa PharmD Unavailable [phone] Reason for Visit * Reason Comments Med Refill Encounter Details Date Type Department Care Team ([facility] st Contact Info) Description 08/07/2023 Refill [facility] [address] [place] [address] Patricia Berry MD 230 [place], [place] [phone] Mood disorder (CMS/HCC); Chronic pain syndrome Social [...] Description 01/05/2025 11:00 AM EDT Office Visit [facility] [address] [place] [address] documented as of this encounter Goals Goal Patient Goal Type Associated Problems Recent Progress Patient-Stated? Author Blood Pressure < 140/90 Blood Pressure 113/69( 025 3:47 PM EDT) No Craig Ochoa, Caroline documented as of this encounter Visit Diagnoses Diagnosis Mood disorder (CMS/HCC) Unspecified episodic mood disorder Chronic pain syndrome documented in this encounter Care Teams Inspector Of Weights And Measures Relationship Specialty Start Date End Date Patricia Berry MD [address] [place] [address] PCP - General Family Medicine 05/11/21 Craig Ochoa, ShawnD [address] [place] [address] Pharmacist Internal Medicine 05/24/23 documented as of this encounter
--- OUTSIDE RECORDS SUMMARY | 2024-12-08 18:33 | XMS_ITS | Encounter Summary ---
Author Organization [employer] Address 75 [facility] 7t [place] [address] Care Team Providers Care Delinquency Counselor Name Role Phone Patricia Berry MD Primary Care Provider [phone] Craig Ochoa PharmD Unavailable [phone] Reason for Visit * Reason Comments Med Refill Encounter Details Date Type Department Care Team ([facility] Contact Info) Description 08/05/2022 Refill [facility] 230 [place] [address] Moses Tejada FNP Moderate persistent asthma without [...] Upcoming Encounters Date Type Department Care Team ([facility] Contact Info) Description 01/05/2025 11:00 AM EDT Office Visit [facility] [address] [place] [address] documented as of this encounter Visit Diagnoses Diagnosis Moderate persistent asthma without complication documented in this encounter Care Teams Delinquency Counselor Relationship Specialty Start Date End Date Patricia Berry MD [address] [place] [address] PCP - General Family Medicine 05/11/21 Craig Ochoa, Caroline [address] [place] [address] Pharmacist Internal Medicine 05/24/23 documented as of this encounter
--- OUTSIDE RECORDS SUMMARY | 2024-12-08 18:33 | XMS_ITS | Encounter Summary ---
Author Organization [employer] Address 75 [facility] 7t [place] [address] Care Team Providers Care Remote Sensing Specialist Name Role Phone Patricia Berry MD Primary Care Provider [phone] Craig Ochoa PharmD Unavailable [phone] Reason for Visit * Reason Onset Date Comments Med Refill 11/17/2024 Encounter Details Date Type Department Care Team ([facility] st Contact Info) Description 11/17/2024 Telephone [facility] MEDICINE 230 [place], [place] [phone] Patricia Berry MD 230 [place], [place] [phone] Med Refill Social History Tobacco Use Types [...] the past 12 months, has t he [employer], gas, oil or water company threatened to [...] tablet To be sent to: [facility]/pharmacy [address] documented in this encounter Plan of Treatment Upcoming Encounters Date Type Department Care Team (Late st Contact Info) Description 01/05/2025 11:00 AM EDT Office Visit [facility] MED[facility]INE 230 [place], [place] [phone] documented as of this encounter Goals Goal [...] documented as of this encounter Care Teams Remote Sensing Specialist Relationship Specialty Start Date End Date Patricia Berry MD [address] [place] [address] PCP - General Family Medicine 05/11/21 Craig Ochoa, ShawnD [address] [place] [address] Pharmacist Internal Medicine 05/24/23 documented as of this encounter
--- OUTSIDE RECORDS SUMMARY | 2024-12-08 18:33 | XMS_ITS | Encounter Summary ---
Author Organization [employer] Address 75 [facility] 7t [place] [address] Care Team Providers Care Meter Changes Records Clerk Name Role Phone Patricia Berry MD Primary Care Provider [phone] Craig Ochoa PharmD Unavailable [phone] Reason for Visit * Reason Onset Date Comments ER Follow-up 07/18/2023 Encounter Details Date Type Department Care Team ([facility] st Contact Info) Description 07/18/2023 Telephone [facility] MED[facility]INE [address] [place], [place] [phone] Patricia Berry MD [address] [place], [place] [phone] ER Follow-up Social History Tobacco Use Types [...] ED visit. Patient was NOT seen at [facility] ED on 07/17/23. Patient reported that he was seen at [facility] ED the night of 07/11/23 for blood in stool. [facility] notes in chart. [...] sooner appointment on Saturday or Saturday at [facility], so scheduled for 07/24/23 with Elton Ellis @ 10am. Routing message to PCP so she is aware. Message: Tc from patient requesting a ER Follow up appt was seen at [facility] on 07/17 for blood in stool and was diagnosed with colonitis and needs Colonoscopy * Telephone Encounter - Edmundo Márquez - 07/18/2023 3:36 PM EST Tc from patient requesting a ER Follow up appt was seen at [facility] on 07/17 for blood in stool and was diagnosed with colonitis and needs Colonoscopy documented in this encounter Plan of Treatment Upcoming Encounters Date Type Department Care Team (Late st Contact Info) Description 01/05/2025 11:00 AM EDT Office Visit [facility] MED[facility] [address] [place] [address] documented as of this encounter Goals Goal Patient Goal Type Associated Problems Recent Progress Patient-Stated? Author Blood Pressure < 140/90 Blood Pressure 113/69( 025 3:47 PM EDT) No Craig Ochoa, PharmKassidy documented as of this encounter Visit Diagnoses Not on filedocumented in this encounter Care Teams Meter Changes Records Clerk Relationship Specialty Start Date End Date Patricia Berry MD [address] [place] [address] PCP - General Family Medicine 05/11/21 Craig Ochoa, PharmD [address] [place] [address] Pharmacist Internal Medicine 05/24/23 documented as of this encounter
--- OUTSIDE RECORDS SUMMARY | 2024-12-08 18:33 | XMS_ITS | Encounter Summary ---
Author Organization [employer] Address 75 [facility] 7t [place] [address] Care Team Providers Care Whiskey Regauger Name Role Phone Patricia Berry MD Primary Care Provider [phone] Craig Ochoa PharmD Unavailable [phone] Reason for Referral * Consultation (Routine) - Closed Specialty Diagnoses / Procedures Referred By Contflores t Referred To Contact Chiropractic Medicine Diagnoses Chronic bilateral low back pain, unspecified whether sciatica present Low back pain of multiple sites of spine with sciatica Patricia Berry MD [address] [place] [address] Phone: tel: fax: [facility] [address] [place] [address] Phone: tel: fax: Referral ID Status Reason Start Date Expiration Date V isits Requested Visits Authorized [id number] Closed Specialty Services Required 10/02/2023 10/01/2024 1 1 Encounter Details Date Type Department Care Team (Late st Contact Info) Description 10/02/2023 Orders Only [facility] MEDICINE [address] [place] [address] Patricia Berry MD [address] [place] [address] Chronic bilateral low back pain, unspecified whether [...] Description 01/05/2025 11:00 AM EDT Office Visit [facility] [address] [place] [address] [phone] Scheduled Referrals Name Type Priority Associated Diagnoses [...] sciatica documented in this encounter Care Teams Whiskey Regauger Relationship Specialty Start Date End Date Patricia Berry MD [address] [place] [address] PCP - General Family Medicine 05/11/21 Craig Ochoa, PharmD [address] [place] [address] Pharmacist Internal Medicine 05/24/23 documented as of this encounter
--- OUTSIDE RECORDS SUMMARY | 2024-12-08 18:33 | XMS_ITS | Encounter Summary ---
Author Organization [employer] Address 75 [facility] 7t [place] [address] Care Team Providers Care Pin Drafting Machine Tender Name Role Phone Patricia Berry MD Primary Care Provider [phone] Craig Ochoa PharmD Unavailable [phone] Encounter Details Date Type Department Care Team (Late st Contact Info) Description 09/06/2022 Orders Only [facility]ICINE [address] [place], [place] [phone] Jeanine Kearns LPN Social History Tobacco Use [...] EDT Office Visit [facility] [address] [place] [address] [phone] documented as of this encounter Visit Diagnoses Not on filedocumented in this encounter Care Teams Pin Drafting Machine Tender Relationship Specialty Start Date End Date Patricia Berry MD [address] [place], [place] [phone] PCP - General Family Medicine 05/11/21 Craig Ochoa, ShawnD [address] [place] [address] Pharmacist Internal Medicine 05/24/23 documented as of this encounter
--- OUTSIDE RECORDS SUMMARY | 2024-12-08 18:33 | XMS_ITS | Encounter Summary ---
Author Organization [employer] Address 75 [facility] 7t [place] [address] Care Team Providers Care Manager Basketball Name Role Phone Patricia Berry MD Primary Care Provider [phone] Craig Ochoa PharmD Unavailable [phone] Reason for Visit * Reason Comments Med Refill Encounter Details Date Type Department Care Team ([facility] Contact Info) Description 09/17/[address] [facility] [address] [place] [address] Patricia Berry MD [address] [place], [place] [phone] Moderate persistent asthma without complication Social History [...] Department Care Team (Late Contact Info) Description 01/05/2025 11:00 AM EDT Office Visit [facility] MEDICINE [address] [place], [place] [phone] documented as of this encounter Visit Diagnoses Diagnosis Moderate persistent asthma without complication documented in this encounter Care Teams Manager Basketball Relationship Specialty Start Date End Date Patricia Berry MD [address] [place], [place] [phone] PCP - General Family Medicine 05/11/21 Craig Ochoa PharmD [address] [place] [address] Pharmacist Internal Medicine 05/24/23 documented as of this encounter
--- OUTSIDE RECORDS SUMMARY | 2024-12-08 18:33 | XMS_ITS | Encounter Summary ---
Author Organization [employer] Address 75 [facility] 7t [place] [address] Care Team Providers Care Assistant Professor Of Dietetics Name Role Phone Patricia Berry MD Primary Care Provider [phone] Craig Ochoa PharmD Unavailable [phone] Reason for Visit * Reason Comments Med Refill Encounter Details Date Type Department Care Team (Late st Contact Info) Description 09/05/2023 Refill [facility] [address] [place] [address] Moses Tejada, BENNETT Acute mucoid otitis media [...] Description 01/05/2025 11:00 AM EDT Office Visit [facility] [address] [place] [address] documented as of this encounter Goals Goal Patient Goal Type Associated Problems Recent Progress Patient-Stated? Author Blood Pressure < 140/90 Blood Pressure 113/69( 025 3:47 PM EDT) No Craig Ochoa, PharmD documented as of this encounter Visit Diagnoses Diagnosis Acute mucoid otitis media of both ears documented in this encounter Care Teams Assistant Professor Of Dietetics Relationship Specialty Start Date End Date Patricia Berry MD [address] [place] [address] PCP - General Family Medicine 05/11/21 Craig Ochoa, PharmD [address] [place] [phone] Pharmacist Internal Medicine 05/24/23 documented as of this encounter
--- OUTSIDE RECORDS SUMMARY | 2024-12-08 18:33 | XMS_ITS | Clinical Summary ---
Author Organization [id number] Address [address] [facility] [address] [place] [address] Care Team Providers Care Chief Scientific Officer Name Role Phone Patricia Berry MD Primary Care Provider [phone] Craig Ochoa PharmD Unavailable Allergies Active Allergy [...] loratadine (Claritin) 10 MG tabletIndicatio ns:Seasonal allergies,Subac [place] maxillary sinusitis TOME RADHA TABLETA TODOS LOS [...] 024 Active sodium chloride ([facility] Saline Nasal [place]) 0.65 % nasal spray USE 1-2 SPRAY ON EACH NOSTRIL EVERY 2-3 HOURS NEEDED FOR NASAL CONGESTION 44 mL 1 024 Active omeprazole (PriLOSEC) [address] capsule [...] for 14 days. 42 tablet 025 2024 Active Tirzepatide-Neil ght Management (Zepbound) 5 MG/0.5ML solution auto-injector Inject 0.5 mL (5 mg) under the skin 1 (one) time per week. 2 mL 11 Active clotrimazole (Lotrimin) 1 % cream Apply topically 2 times daily. 60 g 3 Active Tirzepatide-Neil ght Management (Zepbound) 2.5 MG/0.5ML solution auto-injectorIn dications:Class 3 severe obesity due to excess calories with serious comorbidity and body mass index (BMI) of 50.0 to 59.9 in adult Inject 0.5 mL (2.5 mg) under the skin 1 (one) time per week. 2 mL 11 025 2024 Discontinued tiZANidine (Zanaflex) 4 MG tablet TAKE 1 [...] November 19, 2024. 42 tablet 025 2024 Discontinued(R eorder (will not trigger notification to Pharmacy)) Active Problems Problem Noted Date Diagnosed Date Long-term current use of opiate analgesic 2024 Hypogonadism in male 06/02/2024 Assessment & Plan (06/02/2024 5:35 PM EDT): - Following with Dr. Shannon, [facility]. Last seen in Mar 2024 - Encouraged to talk with [employer] market consultant regarding to coverage for testosterone Dyslipidemia 11/27/2023 [...] sc iatica 09/10/2023 09/10/2023 Assessment & Plan (12/08/2024 4:39 PM EDT): - following with Dr. 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 - He did not recover fully since he had COVID in Aug 2022 - seen by rubber compounder formulator in January 2023, prescribed azithromycin, slow prednisone [...] COVID in Aug 2022 - seem by rubber compounder formulator in January 2023, prescribed azithromycin, slow prednisone taper and changed asthma / COPD medications. - marked improvement today; continue current treatment plan per Dr. Day. - judicious use of DuoNeb as he is experiencing leg cramp, possible low K and Mg Assessment & Plan (11/26/2022 11:03 AM EDT): - still coughing since he had COVID in Aug 2022 - referring to rubber compounder formulator Chronic pain of left knee 08/11/2022 Assessment & Plan (12/08/2024 4:35 PM EDT): -orthopedist: [facility] -s/p left total knee arthroplasty on 04/22/24 -continue following treatment plan per [facility] provider -continue working on weight loss -continue judicious use of tramadol for pain, plan to taper down to bid Assessment & Plan (08/30/2024 3:36 PM EST): -orthopedist: [facility] -s/p left total knee arthroplasty on 04/22/24 -continue following treatment plan per [facility] provider -continue working on weight loss -continue judicious use of tramadol for pain, plan to taper down to bid Assessment & Plan (06/02/2024 5:42 PM EDT): -orthopedist: [facility] -s/p left total knee arthroplasty on 04/22/24 [...] - continue judicious use of tramadol under AREA DIRECTOR agreement Assessment & Plan (03/18/2023 4:31 PM EDT): - continue judicious use of tramadol under AREA DIRECTOR agreement Assessment & Plan (11/26/2022 10:56 AM EDT): - continue judicious use of tramadol under AREA DIRECTOR agreement Recurrent ventral incisional hernia 08/07/2022 Assessment & Plan (11/26/2022 11:00 AM EDT): -Followed by Dr. Eliu, referred to [facility], seen in October 2022 -Hx diverticulitis and perforated sigmoid colon requiring colectomy and end colostomy in 2015 -Reversal of colostomy in 2017 -Incisional hernia repair x 3 -Pt was recommended to continue working on weight reduction, likely to have an open hernia repair. -Follow up with [facility] / [facility] surgeon in Apr 2023 Assessment & Plan (08/07/2022 4:53 AM EST): -Followed by Dr. Nowak -Hx diverticulitis and perforated sigmoid colon requiring colectomy and end colostomy in 2015 -Reversal of colostomy in 2017 -Incisional hernia repair x 3 -Will be referred to tertiary care hospital -Continue working on weight loss Class 3 severe obesity due t o excess calories with serious comorbidity and body mass index (BMI) of 50.0 to 59.9 in adult 08/07/2022 Assessment & Plan (12/08/2024 4:36 PM EDT): -Continue working on lifestyle modification -Semaglutide was initially prescribed -Changing to Zepbound. Will increase Zepbound to 5 mg 12/08/24 -Recommended to try another weight management clinic, such as [facility] / [facility] Assessment & Plan (08/30/2024 3:38 PM EST): -Continue working on lifestyle modification -Semaglutide was initially prescribed -Changing to Zepbound -Recommended to try another weight management clinic, such as [facility] / [facility] Assessment & Plan (06/02/2024 5:38 PM EDT): -Continue working on lifestyle modification -Semaglutide was prescribed in November 2023, but patient has not received it yet; will resend to [facility] pharmacy -Recommended to try another weight management clinic, such as [facility] / [facility] Assessment & Plan (11/27/2023 2:46 PM EDT): -Pt was interested in seeing a [facility] binman, and was referred -Continue working on lifestyle modification -[facility] housekeeper child care recommended semaglutide for the patient and it was prescribed. Patient still has not received it yet. Re-Rx. Assessment & Plan (08/18/2023 7:45 AM EST): Pt was interested in seeing a [facility] binman, and was referred Continue working on lifestyle modification Patient's housekeeper child care from [facility]. The script was sent. Assessment & Plan (03/18/2023 4:26 PM EDT): Pt is interested in seeing a [facility] binman Assessment & Plan (08/07/2022 4:53 AM EST): -Following with Surgical Weight Loss program at [facility] -Continue working on lifestyle modifications KOBY (obstructive sleep apnea) 08/07/2022 Assessment & Plan (12/08/2024 4:30 PM EDT): -Most recent Sleep Study 10/2021. -Severe KOBY with CPAP 11cm H2O. -Continue using CPAP to improve adherence. Assessment & Plan (08/30/2024 3:23 PM EST): [...] & Plan (11/26/2022 10:56 AM EDT): - recent Sleep Study 10/2021. -Severe KOBY with [...] of right knee 08/07/2022 Assessment & Plan (12/08/2024 4:35 PM EDT): -Followed by [facility] provider -Octavio IV medial and patellofemoral arthritis. -Given steroid injection in September 2024 -Recommended to lose weight, until 295 lbs, before considering a surgery / TKA. Assessment & Plan (08/30/2024 3:35 PM EST): [...] Plan (11/27/2023 2:35 PM EDT): -Following with Manufacturing Director [facility], last seen on 03/30/22 & 04/26/22 for elevated ESR / CRP, weakly (+) KHADRA and Polyarthralgia. -continue Allopurinol and Colchicine -cont current medications. Assessment & Plan (08/18/2023 7:43 AM EST): -Following with Manufacturing Director [facility], last seen on 03/30/22 & 04/26/22 for elevated ESR / CRP, weakly (+) KHADRA and Polyarthralgia. -continue Allopurinol and Colchicine -cont current medications. Assessment & Plan (03/18/2023 4:27 PM EDT): -Following with Manufacturing Director [facility], last seen on 03/30/22 & 04/26/22 for elevated ESR / CRP, weakly (+) KHADRA and Polyarthralgia. -continue Allopurinol and Colchicine -cont current medications. Assessment & Plan (12/31/2022 4:22 PM EDT): -Following with Manufacturing Director [facility], last seen on 03/30/22 & 04/26/22 for elevated ESR / CRP, weakly (+) KHADRA and Polyarthralgia. -started on Allopurinol and Colchicine -cont current medications. Assessment & Plan (08/07/2022 4:31 AM EST): -Following with Manufacturing Director [facility], last seen on 03/30/22 & 04/26/22 for elevated ESR / CRP, weakly (+) KHADRA and Polyarthralgia. -started on Allopurinol and Colchicine -cont current medications. Primary hypertension 08/07/2022 Assessment & Plan (12/08/2024 4:34 PM EDT): -Goal BP < 140/90 per [...] if any problem arises Assessment & Plan (08/30/2024 3:34 PM EST): [...] problem arises Asthma 07/23/2022 Assessment & Plan (12/08/2024 4:34 PM EDT): -Following with Dr. Day, [facility] pulmonology, last seen in November 2024 -Last PFT was normal, updating soon -Pt has had multiple exacerbations requiring systemic steroid x 4 in Spring 2022 since he had COVID in Aug 2022 -Multiple CXRs done in Spring 2022, which were normal -Last asthma exacerbation in Aug 2023, treated with prednisone and azithromycin -Optimize Tx asthma and allergic rhinitis -Continue wixela -Prescribed trilergy instead of wixela, but pt discontinued trilergy due to cough, and restarted wixela -Prescribed umeclidinium which pt discontinued due to cough -Continue montelukast 10 mg at bedtime -Continue albuterol HFA prn -Continue DuoNeb prn -Continue azithromycin MWF. -Plant to start Xolair by Dr. Day per note in November 2024. Treatment hx: fluticasone propionate / salmeterol (Wixela) was changed to budesonide / formoterol (Symbicort) in Aug 2023, but patient prefers Wixela, and has been using them. Advised to contact his rubber compounder formulator's office for reviewing medications Assessment & Plan (08/30/2024 3:34 PM EST): -Following with Dr. Day, [facility] pulmonology, last seen in Jun 2024 -Last [...] been using them. Advised to contact his rubber compounder formulator's office for reviewing medications Assessment & Plan (06/02/2024 5:33 PM EDT): -Following with Dr. Day, [facility] pulmonology, last seen in Aug 2023 -Last [...] 2:32 PM EDT): -Following with Dr. Day, [facility] pulmonology, last seen in Aug 2023 -Last [...] DuoNeb prn -Plan to start Xolair; contacted [facility] pulmonary office and requested PFT arrangement. Treatment hx: fluticasone propionate / salmeterol (Wixela) was changed to budesonide / formoterol (Symbicort) in Aug 2023, but patient prefers Wixela, and has been using it. Assessment & Plan (08/18/2023 7:40 AM EST): -Following with Dr. Day, [facility] pulmonology, last seen in February 2023 -Last [...] 4:34 PM EDT): -Following with Dr. Day, [facility] pulmonology, last seen in February 2023 -Last [...] before scheduling a decompression surgery -Followed by [facility] pain management for injection treatment -Treatment Hx: He has tried topiramate and gabapentin, for neuropathic pain, but were ineffective. Pt has tried MEDINA-2, NSAIDs other than ibuprofen, APAP, and muscle relaxants, which did not give pt's desired pain relief. Pt has Hx not following AREA DIRECTOR agreement and was receiving opioid analgesics from other provider. He is aware of the consequence if he does not follow AREA DIRECTOR agreement. -Continue judicious and responsible use of tramadol under AREA DIRECTOR agreement -Continue judicious use of ibuprofen (Pt verbalized understanding that ibuprofen should not be taken daily or long-term) -s/p posterior laminectomy, decompression, transforaminal interbody fusion L5-S1 on 12/02/23 -continue judicious use of tramadol -Rx tizanidine Assessment & Plan (06/02/2024 5:39 PM EDT): -Seen by neurosurgeon and was recommended to lose weight before scheduling a decompression surgery -Followed by [facility] pain management for injection treatment -Treatment Hx: He has tried topiramate and gabapentin, for neuropathic pain, but were ineffective. Pt has tried MEDINA-2, NSAIDs other than ibuprofen, APAP, and muscle relaxants, which did not give pt's desired pain relief. Pt has Hx not following AREA DIRECTOR agreement and was receiving opioid analgesics from other provider. He is aware of the consequence if he does not follow AREA DIRECTOR agreement. -Continue judicious and responsible use of tramadol under AREA DIRECTOR agreement -Continue judicious use of ibuprofen (Pt verbalized understanding that ibuprofen should not be taken daily or long-term) -s/p posterior laminectomy, decompression, transforaminal interbody fusion L5-S1 on 12/02/23 Assessment & Plan (11/27/2023 2:38 PM EDT): -Seen by neurosurgeon and was recommended to lose weight before scheduling a decompression surgery -Followed by [facility] pain management for injection treatment -Treatment Hx: He has tried topiramate and gabapentin, for neuropathic pain, but were ineffective. Pt has tried MEDINA-2, NSAIDs other than ibuprofen, APAP, and muscle relaxants, which did not give pt's desired pain relief. Pt has Hx not following AREA DIRECTOR agreement and was receiving opioid analgesics from other provider. He is aware of the consequence if he does not follow AREA DIRECTOR agreement. -Continue judicious and responsible use of tramadol under AREA DIRECTOR agreement -Continue judicious use of ibuprofen (Pt verbalized understanding that ibuprofen should not be taken daily or long-term) -Anticipating transforaminal interbody fusion L5-S1 on 12/02/23 Assessment & Plan (03/18/2023 4:14 PM EDT): -Seen by neurosurgeon and was recommended to lose weight before scheduling a decompression surgery -Followed by [facility] pain management for injection treatment -Treatment Hx: He has tried topiramate and gabapentin, for neuropathic pain, but were ineffective. Pt has tried MEDINA-2, NSAIDs other than ibuprofen, APAP, and muscle relaxants, which did not give pt's desired pain relief. Pt has Hx not following AREA DIRECTOR agreement and was receiving opioid analgesics from other provider. He is aware of the consequence if he does not follow AREA DIRECTOR agreement. -Continue judicious and responsible use of tramadol under AREA DIRECTOR agreement -Continue judicious use of ibuprofen (Pt verbalized understanding that ibuprofen should not be taken daily or long-term) Assessment & Plan (08/11/2022 6:08 AM EST): -Seen by neurosurgeon and was recommended to lose weight before scheduling a decompression surgery -Followed by [facility] pain management for injection treatment -Treatment Hx: He has tried topiramate and gabapentin, for neuropathic pain, but were ineffective. Pt has tried MEDINA-2, NSAIDs other than ibuprofen, APAP, and muscle relaxants, which did not give pt's desired pain relief. Pt has Hx not following AREA DIRECTOR agreement and was receiving opioid analgesics from other provider. He is aware of the consequence if he does not follow AREA DIRECTOR agreement. -Continue judicious and responsible use of tramadol under AREA DIRECTOR agreement -Continue judicious use of ibuprofen (Pt verbalized understanding that ibuprofen should not be taken daily or long-term) Continuous opioid dependence 05/09/2018 Overview (08/11/2022): Tramadol under AREA DIRECTOR Deviated nasal septum 05/09/2018 Gastroesophageal reflux disease 05/09/2018 Assessment & Plan (11/27/2023 2:34 PM EDT): - Rx omeprazole - lifestyle modification History of colectomy 05/09/2018 Overview (07/25/2023): -Currently followed by [facility] - Dr. Nowak Hypothyroidism 05/09/2018 Assessment & Plan (12/08/2024 4:36 PM EDT): -Current replacement: levothyroxine 50 mcg daily, questionable medication adherence -Last TSH in 2023. Therapeutic. -Recheck thyroid function test and adjust dose accordingly -Emphasized the importance of adherence Assessment & Plan (08/30/2024 3:37 PM EST): [...] Encounters Date Type Department Care Team Description 12/08/2024 3:45 PM EDT Office Visit [facility] [address] [place] [address] Patricia Berry MD KOBY (obstructive sleep apnea) (Primary Dx); Primary hypertension; Chronic pain of left knee; Primary osteoarthritis of right knee; Hypothyroidism, unspecified type; Moderate persistent asthma without complication; Pain of left great toe; Class 3 severe obesity due to excess calories with serious comorbidity and body mass index (BMI) of 50.0 to 59.9 in adult; Low back pain of multiple sites of spine with sciatica 12/08/2024 Travel 12/07/2024 Telephone [facility] [address] [place] [address] Patricia Berry MD chart prep 12/04/2024 Refill [facility] [address] [place], [place] [phone] Renee Vazquez RN Chronic bilateral low back pain, unspecified whether sciatica present; Chronic pain of left knee 12/04/2024 Telephone [facility] [address] [place] [address] Patricia Berry MD Med Refill 11/17/2024 Refill [facility] [address] [place] [address] Renee Vazquez RN Chronic bilateral low back pain, unspecified whether sciatica present; Chronic pain of left knee 11/17/2024 Telephone [facility] [address] [place] [phone] Patricia Berry MD Med Refill 11/16/2024 Refill [facility] [address] [place] [address] Patricia Berry MD 11/06/2024 Refill [facility] [address] [place] [phone] Patricia Berry MD Chronic bilateral low back pain, unspecified whether sciatica present; Chronic pain of left knee 10/27/2024 1:30 PM EDT Clinical Support [facility] [address] [place] [address] Renee Vazquez RN Chronic pain syndrome (Primary Dx); Long-term current use of opiate analgesic 10/27/2024 Telephone [facility] [address] [place] [address] Renee Vazquez RN 10/27/2024 Travel 10/23/2024 Refill [facility] [address] [place] [phone] Patricia Berry MD Chronic bilateral low back pain, unspecified whether sciatica present; Chronic pain of left knee 10/21/2024 Travel 10/21/2024 Telephone [facility] [address] [place] [address] Renee Vazquez RN 10/21/2024 Telephone [facility] [address] [place] [phone] Patricia Berry MD Appointment Request 10/08/2024 Refill [facility] [address] [place] [phone] Patricia Berry MD Moderate persistent asthma without complication; Chronic pain syndrome 10/08/2024 Travel 10/08/2024 Refill [facility] [address] [place] [address] Patricia Berry MD Chronic bilateral low back pain, unspecified whether sciatica present; Chronic pain of left knee 10/08/2024 Telephone [facility] [address] [place] [address] Patricia Berry MD Med Refill 09/25/2024 Travel 09/25/2024 Refill [facility] [address] [place] [address] Patricia Berry MD Chronic bilateral low back pain, unspecified whether sciatica present; Chronic pain of left knee 09/10/2024 Telephone [facility] [address] [place] [address] Renee Vazquez RN 09/10/2024 Refill [facility] [address] [place] [address] Stephanie Ny MD Chronic pain syndrome 09/10/2024 Refill [facility] [address] [place] [address] Patricia Berry MD Chronic bilateral low back pain, unspecified whether sciatica present; Chronic pain of left knee; Chronic pain syndrome from Last 3 Months Immunizations Name Administration [...] Average Number of Drinks Not on file 10/22/2 024 Frequency of Binge Drinking Not on [...] Sign Reading Time Taken Comments Blood Pressure 113/69 12/08/2024 3:47 PM EDT Pulse 65 12/08/2024 3:47 PM EDT Temperature 36.2 ??C (97.1 ??F) 12/08/2024 3:47 PM ED T Respiratory Rate 16 12/08/2024 3:47 PM EDT Oxygen Saturation 95% 12/08/2024 3:47 PM EDT Inhaled Oxygen Concentration - - Weight 152 kg (334 lb 9.6 oz) 12/08/2024 3:47 PM EDT Height 177.8 cm (5' 10 ) 12/08/2024 3:47 PM EDT Body Mass Index 48.01 12/08/2024 3:47 PM EDT Plan of Treatment Upcoming Encounters Date Type Department Care Team (Late st Contact Info) Description 01/05/2025 11:00 AM EDT Office Visit [facility] [address] [place] [phone] Health Maintenance Due Date Last Done Comments Family Planning (PISQ) 12/27/1987 Hepatitis B Vaccines (1 of 3 - 19+ 3-dose series) 12/27/1991 Zoster Vaccines (2 of 2) 07/19/2023 05/24/2023 COVID-19 Vaccine ( - 2023- season) 2024 07/21/2021, 06/29/2021 Influenza Vaccine (#1) 2024 , 06/27/2021, 09/04/2016, Additional history exists Alcohol/Substance Use Screening 06/02/2025 06/02/2024 Depression Screening 12/08/2025 12/08/2024, 12/09/19 25 SDOH Screening 12/08/2025 12/08/2024 Tobacco Screening 12/08/2025 12/08/2024 DTaP/Tdap/Td Vaccines (4 - Td or Tdap) [...] 3:47 PM EDT) No Craig Ochoa, Caroline Procedures Procedure Name Priority Date/Time Associated Diagnosis Comments URIC ACID Routine 12/08/2024 4:28 PM EDT Pain of left great toe C-REACTIVE PROTEIN Routine 12/08/2024 4: 28 PM EDT Pain of left great toe CBC WITH AUTO DIFFERENTIAL Routine 12/08/2024 4:28 PM EDT Pain of left great toe POCT KIRSTIE-14 URINE DRUG SCREEN Routine 10/27/2024 [...] Recently Relevant to Health Maintenance Results * (ABNORMAL) CBC auto differential (12/08/2024 4:28 PM EDT) White Blood Count 9.3 4.8 - 10.8 X10*3/uL [facility] Red Blood Count 4.73 4.60 - 5.80 X10*6/uL [facility] Hemoglobin 13.6(L) 14.0 - 18.0 g/dl [facility] Hematocrit 41.1(L) 42.0 - 52.0 % [facility] Mean Corpuscular Volume 86.9 80.0 - 98.0 fL [facility] Mean Corpuscular Hemoglobin 28.8 27.0 - 33.0 pg [facility] Mean Corpuscular HGB Conc 33.1 31.0 - 36.0 g/dl [facility] Red Cell Distribution Width 14.3 11.0 - 16.0 % [facility] Platelet Count 316 160 - 400 X10*3/uL [facility] Mean Platelet Volume 9.4 9.4 - 12.4 fL [facility] Neutrophils Percent Auto 61.9 45 - 73 % [facility] Imm Gran Pct Auto 0.5(H) 0.0 - 0.4 % [facility] Lymphocytes Percent Auto 23.3 20 - 40 % [facility] Monocytes Percent Auto 9.3 2 - 11 % [facility] Eosinophils Percent Auto 4.6(H) 0 - 4 % [facility] Basophils Percent Auto 0.4 0 - 2 % [facility] NRBC Pct Auto 0.0 0.0 - 0.2 /100WBC [facility] Neutrophils Absolute Auto 5.8 2.0 - 8.3 x10*3/uL [facility] Imm Gran Abs Auto 0.05(H) 0.00 - 0.03 X10*3/uL [facility] Lymphocytes Absolute Auto 2.2 1.2 - 4.9 X10*3/uL [facility] Monocytes Absolute Auto 0.9 0.1 - 1.2 X10*3/uL [facility] Eosinophils Absolute Auto 0.4 0.0 - 0.4 X10*3/uL [facility] Basophils Absolute Auto 0.0 0.0 - 0.2 X10*3/uL [facility] NRBC Abs Auto 0.000 0.0 - 0.012 X10*3/uL [facility] Blood Venous blood specimen / Unknown 12/08/2024 4:28 PM EDT 12/08/2024 5:29 PM EDT Patricia Berry MD LAB BLOOD ORDERABLES Final Resul t Performing Organization Address [facility] Co de Phone Number [facility] [address] [place] [phone] * (ABNORMAL) C-reactive Protein (12/08/2024 4:28 PM EDT) C Reactive Protein 1.90(H) < or = 0.50 mg/dL [facility] Blood Venous blood specimen / Unknown 12/08/2024 4:28 PM EDT 12/08/2024 5:29 PM EDT Patricia Berry MD LAB BLOOD ORDERABLES Final Resul t Performing Organization Address [facility] Co de Phone Number [facility] [address] [place] [phone] * (ABNORMAL) Uric acid (12/08/2024 4:28 PM EDT) Uric Acid 8.2(H) 3.4 - 7.0 mg/dL [facility] Blood Venous blood specimen / Unknown 12/08/2024 4:28 PM EDT 12/08/2024 5:29 PM EDT Patricia Berry MD LAB BLOOD ORDERABLES Final Resul t Performing Organization Address [facility] Co de Phone Number [facility] [address] [place] [phone] * POCT KIRSTIE-14 Urine Drug Screen (10/27/2024 1:29 PM EDT) Urine Urine specimen obtained by clean catch procedure / Unknown 10/27/2024 1:29 PM EDT Narrative Renee Vazquez RN - 10/27/2024 1:29 PM EDT negative AMP, BAR, BUP, BZO, JANET, FTY, MDMA, MET, MOP, MTD, OXY, PCP, TCA, THC. Lot# [id number] Exp: 03-31-26 Patricia Berry MD POINT OF CARE TEST ENTER/EDIT OR DERABLES Final Result * Hepatitis C Antibody with Reflex to HCV, RNA, Quantitative, Real-Time PCR (07/02/2024 2:46 PM EST) Hepatitis C Antibody Nonreactive Nonreactive [facility] Comment:Antibodies to HCV no t detected; does not exclude early acuteHCV infection. Blood Venous blood specimen / Unknown 07/02/2024 2:46 PM EST 07/02/2024 2:46 PM EST Patricia Berry MD LAB BLOOD ORDERABLES Final Resul t [facility] [address] [place] [address] [phone] * (ABNORMAL) Lipid Panel with Reflex to Direct LDL (06/19/2024 2:36 PM EST) Triglycerides 143 <150 mg/dL [facility] Comment:Desirable Triglyceri de: less than 150 mg/dLBorderline High Triglyceride 150-199 mg/dLHigh Triglyceride: 200-499 mg/dLVery High Triglyceride: greater than or equal to 5OO mg/dL Cholesterol 224(H) <200 mg/dL [facility] Comment:Desirable Cholestero l: less than 200 mg/dLBorderline High Cholesterol: 200-239 mg/dLHigh Cholesterol: greater than 239 mg/dL LDL Cholesterol Calculated 135(H) <100 mg/dL [facility] Comment:Desirable LDL: less than 100 mg/dLNear Optimal/Above Optimal LDL: 110- 129 mg/dLBorderline High LDL: 130-159 mg/dLHigh LDL: 160-189 mg/dLVery High LDL: greater than or equal to 190 mg/dL HDL Cholesterol 61 >40 mg/dL [facility] Comment:Desirable HDL: great er than 40 mg/dL Note: This HDL assay may give artificially low results in patients with liver disease. Blood 06/19/2024 2:36 PM EST 06/19/2024 2:36 PM EST Patricia Berry MD LAB BLOOD ORDERABLES Final Resul t [facility] [address] [place] [phone] [phone] * HIV-1/2 Antigen and Antibodies, Fourth Generation, with Reflexes (12/31/2022 3:55 PM EDT) [facility] HIV Antigen/Antibody, 4th Generation NON-REAC TIVE NON-REAC TIVE [employer] [facility] Comment: HIV-1 antigen and HIV-1/HIV-2 antibodies [...] ?? For additional information please refer to http://education.zePASS.Project Colourjack/faq/YOR388 (This link is being provided for informational/ educational purposes only.) The performance of this assay has not been clinically validated in patients less than 2 years old. 12/31/2022 3:55 PM EDT 12/31/2022 3:56 PM EDT Patricia Berry MD LAB BLOOD ORDERABLES Final Resul t [facility] [address], [place] [address] [employer] [facility] [address] [place] [phone] from Last 3 Months or Most Recently Relevant to Health Maintenance Insurance [employer] [id number] Care Teams Chief Scientific Officer Relationship Specialty Start Date End Date Patricia Berry MD [address] [place] [address] PCP - General Family Medicine 05/11/21 Craig Ochoa, PharmD [address] [place] [address] Pharmacist Internal Medicine 05/24/23
--- OUTSIDE RECORDS SUMMARY | 2024-12-08 18:33 | XMS_ITS | Encounter Summary ---
Author Organization [employer] Address [address] [facility] 7t [place] [address] Care Team Providers Care Environmental Sustainability Manager Name Role Phone Patricia Berry MD Primary Care Provider [phone] Craig Ochoa PharmD Unavailable [phone] Reason for Visit * Reason Comments Med Refill Encounter Details Date Type Department Care Team (Late st Contact Info) Description 08/04/2023 Refill [facility] [address] [place] [address] Moses Tejada, BENNETT Acute mucoid otitis media [...] 01/05/2025 11:00 AM EDT Office Visit [facility] [address] [place] [address] documented as of this encounter Goals Goal Patient Goal Type Associated Problems Recent Progress Patient-Stated? Author Blood Pressure < 140/90 Blood Pressure 113/69( 025 3:47 PM EDT) No Craig Ochoa, PharmD documented as of this encounter Visit Diagnoses Diagnosis Acute mucoid otitis media of both ears documented in this encounter Care Teams Environmental Sustainability Manager Relationship Specialty Start Date End Date Patricia Berry MD [address] [place] [address] PCP - General Family Medicine 05/11/21 Craig Ochoa, PharmD [address] [place] [address] Pharmacist Internal Medicine 05/24/23 documented as of this encounter
--- OUTSIDE RECORDS SUMMARY | 2024-12-08 18:33 | XMS_ITS | Encounter Summary ---
Author Organization [employer] Address [address] [facility] 7t [place] [address] Care Team Providers Care Shipping Assistant Name Role Phone Patricia Berry MD Primary Care Provider [phone] Craig Ochoa PharmD Unavailable [phone] Encounter Details Date Type Department Care Team ([facility] st Contact Info) Description 08/14/2023 Orders Only [facility] [address] [place], [place] [phone] Patricia Berry MD [address] [place], [place] [phone] Hypothyroidism, unspecified type (Primary Dx) Social History [...] EDT Office Visit [facility] [address] [place] [address] documented as of this encounter Goals Goal [...] Free T4 2.74 0.32 - 4.0 uIU/mL [facility] Blood 11/27/2023 12:1 0 PM EDT 11/27/2023 1:11 PM EDT us Patricia Berry MD LAB BLOOD ORDERABLES Final Resul t [facility] [address] [place] [phone] documented in this encounter Visit Diagnoses Diagnosis Hypothyroidism, unspecified type- Primary documented in this encounter Care Teams Shipping Assistant Relationship Specialty Start Date End Date Patricia Berry MD [address] [place] [address] PCP - General Family Medicine 05/11/21 Craig Ochoa, ShawnD [address] [place] [address] Pharmacist Internal Medicine 05/24/23 documented as of this encounter
--- OUTSIDE RECORDS SUMMARY | 2024-12-08 18:33 | XMS_ITS | Encounter Summary ---
Author Organization [employer] Address [address] [facility] 7t [place] [address] Care Team Providers Care Gear Lapper Name Role Phone Patricia Berry MD Primary Care Provider [phone] Craig Ochoa PharmD Unavailable [phone] Reason for Visit * Reason Onset Date Comments Med Refill 10/08/2023 Encounter Details Date Type Department Care Team ([facility] st Contact Info) Description 10/08/2023 Telephone [facility] [address] [place], [place] [phone] Patricia Berry MD [address] [place], [place] [phone] Med Refill Social History Tobacco Use Types [...] 50 MG tablet To be sent to: [facility]/pharmacy #[id number] [place] [address] documented in this encounter Plan of Treatment Upcoming Encounters Date Type Department Care Team (Late st Contact Info) Description 01/05/2025 11:00 AM EDT Office Visit [facility] [address] [place] [address] documented as of this encounter Goals Goal Patient Goal Type Associated Problems Recent Progress Patient-Stated? Author Blood Pressure < 140/90 Blood Pressure 113/69( 025 3:47 PM EDT) No Craig Ochoa PharmD documented as of this encounter Visit Diagnoses Not on filedocumented in this encounter Care Teams Gear Lapper Relationship Specialty Start Date End Date Patricia Berry MD [address] [place] [address] PCP - General Family Medicine 05/11/21 Craig Ochoa PharmD [address] [place] [address] Pharmacist Internal Medicine 05/24/23 documented as of this encounter
--- OUTSIDE RECORDS SUMMARY | 2024-12-08 18:33 | XMS_ITS | Encounter Summary ---
Author Organization [employer] Address [address] [facility] 7t [place] [address] Care Team Providers Care Associate Professor Of Psychology Name Role Phone Patricia Berry MD Primary Care Provider [phone] Craig Ochoa PharmD Unavailable [phone] Reason for Visit * Reason Onset Date Comments Med Refill 12/04/2024 Encounter Details Date Type Department Care Team ([facility] st Contact Info) Description 12/04/[address] [facility] [address] [place] [address] Renee Vazquez, RN [address] [place] [address] Chronic bilateral low back pain, unspecified whether [...] Description 01/05/2025 11:00 AM EDT Office Visit [facility] [address] [place] [address] documented as of this encounter Goals Goal [...] documented as of this encounter Care Teams Associate Professor Of Psychology Relationship Specialty Start Date End Date Patricia Berry MD [address] [place] [address] PCP - General Family Medicine 05/11/21 Craig Ochoa, PharmD [address] [place] [address] Pharmacist Internal Medicine 05/24/23 documented as of this encounter
--- OUTSIDE RECORDS SUMMARY | 2024-12-08 18:33 | XMS_ITS | Encounter Summary ---
Author Organization [employer] Address 75 [facility] 7t [place] [address] Care Team Providers Care Financial Specialist Name Role Phone Patricia Berry MD Primary Care Provider [phone] Craig Ochoa PharmD Unavailable [phone] Encounter Details Date Type Department Care Team (Late Contact Info) Description 08/21/2022 Telephone [facility] [address] [place] [address] [phone] Patricia Berry MD [address] [place], [place] [phone] Social History Tobacco Use Types Packs/Day Years [...] Description 01/05/2025 11:00 AM EDT Office Visit [facility] [address] [place] [address] [phone] documented as of this encounter Visit Diagnoses Not on filedocumented in this encounter Care Teams Financial Specialist Relationship Specialty Start Date End Date Patricia Berry MD [address] [place] [address] PCP - General Family Medicine 05/11/21 Craig Ochoa, ShawnD [address] [place] [address] Pharmacist Internal Medicine 05/24/23 documented as of this encounter
--- OUTSIDE RECORDS SUMMARY | 2024-12-08 18:33 | XMS_ITS | Encounter Summary ---
Author Organization [employer] Address 75 [facility] 7t [place] [address] Care Team Providers Care Lead Tank Mechanic Name Role Phone Patricia Berry MD Primary Care Provider [phone] Craig Ochoa PharmD Unavailable [phone] Encounter Details Date Type Department Care Team (Latest Contact Info) Description 12/08/2024 3:45 PM EDT Office Visit [facility] [address] [place] [address] Patricia Berry MD [address] [place] [address] KOBY (obstructive sleep apnea) (Primary Dx); Primary [...] AM EDT documented as of this encounter Last Filed Vital Signs Vital Sign Reading [...] Mass Index 48.01 12/08/2024 3:47 PM EDT documented in this encounter Miscellaneous Notes * Assessment & Plan Note - Raven Osborne MA - 12/08/2024 4:39 PM EDTAssociated Problem(s): Low back pain of multiple sites of spine with sciatica - following with Dr. Dumas - recently seen was referred to physical therapy - Pt tried pregabalin prescribed by orthopedist but was discontinued to due headache - continue judicious use of tramadol - Rx tizanidine * Assessment & Plan Note - Raven Osborne MA - 12/08/2024 4:36 PM EDTAssociated Problem(s): Class 3 severe obesity due to excess calories with serious comorbidity and body mass index (BMI) of 50.0 to 59.9 in adult -Continue working on lifestyle modification -Semaglutide was initially prescribed -Changing to Zepbound. Will increase Zepbound to 5 mg 12/08/24 -Recommended to try another weight management clinic, such as [facility] * Assessment & Plan Note - Raven Osborne MA - 12/08/2024 4:36 PM EDTAssociated Problem(s): Hypothyroidism -Current replacement: levothyroxine 50 mcg daily, questionable medication adherence -Last TSH in 2023. Therapeutic. -Recheck thyroid function test and adjust dose accordingly -Emphasized the importance of adherence * Assessment & Plan Note - Raven Osborne MA - 12/08/2024 4:35 PM EDTAssociated Problem(s): Chronic pain of left knee -orthopedist: RUFINO -s/p left total knee arthroplasty on 04/22/24 -continue following treatment plan per [facility] provider -continue working on weight loss -continue judicious use of tramadol for pain, plan to taper down to bid * Assessment & Plan Note - Raven Osborne MA - 12/08/2024 4:35 PM EDTAssociated Problem(s): Primary osteoarthritis of right knee -Followed by [facility] provider -Octavio DUTTON medial and patellofemoral arthritis. -Given steroid injection in September 2024 -Recommended to lose weight, until 295 lbs, before considering a surgery / TKA. * Assessment & Plan Note - Raven Osborne MA - 12/08/2024 4:34 PM EDTAssociated Problem(s): Primary hypertension -Goal BP < 140/90 per JNC-8; < 130/80 (Tx threshold 140/90) per ACC/AHA guideline -Continue working on lifestyle modifications -Current medications on the list: hydrochlorothiazide 25 mg daily and Losartan 25 mg daily -Previous medications: lisinopril 10 mg daily; amlodipine 5 mg daily -Check home BP -Advised to reschedule CD[facility] appointment -Follow up in 3 mo or sooner if any problem arises * Assessment & Plan Note - Raven Osborne MA - 12/08/2024 4:30 PM EDTAssociated Problem(s): Asthma -Following with Dr. Day, [facility] pulmonology, last seen in November 2024 -Last PFT was normal, updating soon -Pt has had multiple exacerbations requiring systemic steroid x 4 in Spring 2022 since he had COVIDin Aug 2022 -Multiple CXRs done in Spring [...] been using them. 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 -Severe KOBY with CPAP 11cm H2O. -Continue using CPAP to improve adherence. documented in this encounter Plan of Treatment Upcoming Encounters Date Type Department Care Team (Late st Contact Info) Description 01/05/2025 11:00 AM EDT Office Visit [facility] [address] [place] [phone] Scheduled Orders Name Type Priority Associated Diagnoses Orde r Schedule Sed Rate by Modified [facility] Routine Pain of left great toe Expected: 12/08/2024 (Approximate), Expires: 12/08/2025 documented as of this encounter Goals Goal Patient Goal Type Associated Problems Recent Progress Patient-Stated? Author Blood Pressure < 140/90 Blood Pressure 113/69( 025 3:47 PM EDT) No Craig Ochoa, PharmD documented as of this encounter Procedures Procedure Name Priority Date/Time Associated Diagnosis Comments CBC WITH AUTO DIFFERENTIAL Routine 12/08/2024 4:28 PM EDT Pain of left great toe C-REACTIVE PROTEIN Routine 12/08/2024 4: 28 PM EDT Pain of left great toe URIC ACID Routine 12/08/2024 4:28 PM EDT Pain of left great toe documented in this encounter Results * (ABNORMAL) Uric acid (12/08/2024 4:28 PM EDT) Pathologist [facility] Uric Acid 8.2(H) 3.4 - 7.0 mg/dL [facility] Blood Venous blood specimen / Unknown 12/08/2024 4:28 PM EDT 12/08/2024 5:29 PM EDT Patricia Berry MD LAB BLOOD ORDERABLES Final Resul t Performing Organization Address [facility]/ZIP Co de Phone Number [facility] [address] [place] [phone] * (ABNORMAL) C-reactive Protein (12/08/2024 4:28 PM EDT) Pathologist [facility] C Reactive Protein 1.90(H) < or = 0.50 mg/dL [facility] Blood Venous blood specimen / Unknown 12/08/2024 4:28 PM EDT 12/08/2024 5:29 PM EDT Patricia Berry MD LAB BLOOD ORDERABLES Final Resul t Performing Organization Address [facility]/ZIP Co de Phone Number [facility] [address] [place] [phone] * (ABNORMAL) CBC auto differential (12/08/2024 4:28 PM EDT) Pathologist [facility] White Blood Count 9.3 4.8 - 10.8 X10*3/uL [facility] Red Blood Count 4.73 4.60 - 5.80 X10*6/uL [facility] Hemoglobin 13.6(L) 14.0 - 18.0 g/dl [facility] Hematocrit 41.1(L) 42.0 - 52.0 % [facility] Mean Corpuscular Volume 86.9 80.0 - 98.0 fL [facility] Mean Corpuscular Hemoglobin 28.8 27.0 - 33.0 pg [facility] Mean Corpuscular HGB Conc 33.1 31.0 - 36.0 g/dl [facility] Red Cell Distribution Width 14.3 11.0 - 16.0 % [facility] Platelet Count 316 160 - 400 X10*3/uL [facility] Mean Platelet Volume 9.4 9.4 - 12.4 fL [facility] Neutrophils Percent Auto 61.9 45 - 73 % [facility] Imm Gran Pct Auto 0.5(H) 0.0 - 0.4 % [facility] Lymphocytes Percent Auto 23.3 20 - 40 % [facility] Monocytes Percent Auto 9.3 2 - 11 % [facility] Eosinophils Percent Auto 4.6(H) 0 - 4 % [facility] Basophils Percent Auto 0.4 0 - 2 % [facility] NRBC Pct Auto 0.0 0.0 - 0.2 /100WBC [facility] Neutrophils Absolute Auto 5.8 2.0 - 8.3 x10*3/uL [facility] Imm Gran Abs Auto 0.05(H) 0.00 - 0.03 X10*3/uL [facility] Lymphocytes Absolute Auto 2.2 1.2 - 4.9 X10*3/uL [facility] Monocytes Absolute Auto 0.9 0.1 - 1.2 X10*3/uL [facility] Eosinophils Absolute Auto 0.4 0.0 - 0.4 X10*3/uL [facility] Basophils Absolute Auto 0.0 0.0 - 0.2 X10*3/uL [facility] NRBC Abs Auto 0.000 0.0 - 0.012 X10*3/uL [facility] Blood Venous blood specimen / Unknown 12/08/2024 4:28 PM EDT 12/08/2024 5:29 PM EDT us Patricia Berry MD LAB BLOOD ORDERABLES Final Resul t [facility] [address] [place] [phone] documented in this encounter Visit Diagnoses Diagnosis KOBY (obstructive sleep apnea)- Primary Obstructive sleep apnea (adult) (pediatric) Primary hypertension Unspecified essential hypertension Chronic pain of left knee Primary osteoarthritis of right knee Hypothyroidism, unspecified type Moderate persistent asthma without complication Pain of left great toe Class 3 severe obesity due to excess calories with serious comorbidity and body mass index (BMI) of 50.0 to 59.9 in adult Low back pain of multiple sites of spine with sciatica documented in this encounter Additional Health Concerns Assessment Noted Time PHQ-9 Depression Total Score: 10 12/08/ 025 4:22 PM EDT documented as of this encounter Care Teams Lead Tank Mechanic Relationship Specialty Start Date End Date Patricia Berry MD [address] [place] [address] PCP - General Family Medicine 05/11/21 Craig Ohcoa, Caroline [address] [place] [address] Pharmacist Internal Medicine 05/24/23 documented as of this encounter
--- OUTSIDE RECORDS SUMMARY | 2024-12-08 18:33 | XMS_ITS | Encounter Summary ---
Author Organization [employer] Address [address] [facility] 7t [place] [address] Care Team Providers Care Baler Name Role Phone Patricia Berry MD Primary Care Provider [phone] Craig Ochoa PharmD Unavailable [phone] Reason for Visit * Reason Onset Date Comments Med Refill 12/04/2024 Encounter Details Date Type Department Care Team ([facility] st Contact Info) Description 12/04/2024 Telephone [facility] [address] [place], [place] [phone] Patricia Berry MD [address] [place], [place] [phone] Med Refill Social History Tobacco Use Types [...] the past 12 months, has t he [employer] gas, oil or water company threatened to [...] * Telephone Encounter - Deborah Hook - 12/04/2024 1:02 PM EDT TC from pt requesting medication refill. Medications needing refill : traMADol (Ultram) 50 MG tablet To be sent to: [facility]/pharmacy #[id number] [place] [address] - [facility] YURIY DHILLON documented in this encounter Plan of Treatment Upcoming Encounters Date Type Department Care Team (Late st Contact Info) Description 01/05/2025 11:00 AM EDT Office Visit [facility] [address] [place], [place] [phone] documented as of this encounter Goals Goal [...] documented as of this encounter Care Teams Baler Relationship Specialty Start Date End Date Patricia Berry MD [address] [place] [address] PCP - General Family Medicine 05/11/21 Craig Ochoa, ShawnD [address] [place] [address] Pharmacist Internal Medicine 05/24/23 documented as of this encounter
--- OUTSIDE RECORDS SUMMARY | 2024-12-08 18:33 | XMS_ITS | Encounter Summary ---
Author Organization [employer] Address [address] [facility] 7t [place] [address] Care Team Providers Care Booth Cashier Name Role Phone Patricia Berry MD Primary Care Provider Craig Ochoa PharmD Unavailable [phone] Reason for Visit * Reason Onset Date Comments triage 08/20/2022 Encounter Details Date Type Department Care Team (Late st Contact Info) Description 08/20/2022 Telephone [facility] [address] [place], [place] [phone] Patricia Berry MD [address] [place], [place] [phone] triage Social History Tobacco Use Types Packs/Day [...] Advised to be seen by provider in [facility] and Pt agreed. Insurance is verified [...] Description 01/05/2025 11:00 AM EDT Office Visit [facility] [address] [place] [address] documented as of this encounter Visit Diagnoses Not on filedocumented in this encounter Care Teams Booth Cashier Relationship Specialty Start Date End Date Patricia Berry MD [address] [place] [phone] PCP - General Family Medicine 05/11/21 Craig Ochoa, ShawnD [address] [place] [address] Pharmacist Internal Medicine 05/24/23 documented as of this encounter
--- OUTSIDE RECORDS SUMMARY | 2024-12-08 18:33 | XMS_ITS | Encounter Summary ---
Author Organization [employer] Address [address] [facility] 7t [place] [address] Care Team Providers Care Gold Assayer Name Role Phone Patricia Berry MD Primary Care Provider Craig Ochoa PharmD Unavailable [phone] Encounter Details Date Type Department Care Team (Latest Contact Info) Description 12/08/2024 Travel Social History Tobacco Use Types Packs/Day Years [...] Description 01/05/2025 11:00 AM EDT Office Visit [facility] [address] [place] [address] documented as of this encounter Goals Goal Patient Goal Type Associated Problems Recent Progress Patient-Stated? Author Blood Pressure < 140/90 Blood Pressure 113/69( 025 3:47 PM EDT) No Craig Ochoa, Caroline documented as of this encounter Visit Diagnoses Not on filedocumented in this encounter Additional Health Concerns Assessment Noted Time PHQ-9 Depression Total Score: 10 025 4:22 PM EDT documented as of this encounter Care Teams Gold Assayer Relationship Specialty Start Date End Date Patricia Berry MD [address] [place] [id number] PCP - General Family Medicine 05/11/21 Craig Ochoa, ShawnD [address] [place] [phone] Pharmacist Internal Medicine 05/24/23 documented as of this encounter
--- OUTSIDE RECORDS SUMMARY | 2024-12-08 18:33 | XMS_ITS | Encounter Summary ---
Author Organization [employer] Address [address] [facility] 7t [place] [address] Care Team Providers Care Ratchet Setter Name Role Phone Patricia Berry MD Primary Care Provider [phone] Craig Ochoa PharmD Unavailable [phone] Encounter Details Date Type Department Care Team ([facility] st Contact Info) Description 08/07/[address] [facility] [address] [place], [place] [phone] Patricia Berry MD [address] [place], [place] [phone] Social History Tobacco Use Types Packs/Day Years [...] Description 01/05/2025 11:00 AM EDT Office Visit [facility] [address] [place] [address] documented as of this encounter Goals Goal Patient Goal Type Associated Problems Recent Progress Patient-Stated? Author Blood Pressure < 140/90 Blood Pressure 113/69( 025 3:47 PM EDT) No rCaig Ochoa, PharmD documented as of this encounter Visit Diagnoses Not on filedocumented in this encounter Care Teams Ratchet Setter Relationship Specialty Start Date End Date Patricia Berry MD [address] [place] [address] PCP - General Family Medicine 05/11/21 Craig Ochoa, PharmD [address] [place] [phone] Pharmacist Internal Medicine 05/24/23 documented as of this encounter
--- OUTSIDE RECORDS SUMMARY | 2024-12-08 18:34 | XMS_ITS | Encounter Summary ---
Author Organization [employer] Address [address] [facility] 7t [place] [address] Care Team Providers Care Emergency Management Program Specialist Name Role Phone Patricia Berry MD Primary Care Provider [phone] Craig Ochoa PharmD Unavailable [phone] Reason for Visit * Reason Comments Med Refill Encounter Details Date Type Department Care Team (Late st Contact Info) Description 07/16/2024 Refill [facility] [address] [place] [address] Patricia Berry MD [address] [place] [address] Social History Tobacco Use Types Packs/Day Years [...] Description 01/05/2025 11:00 AM EDT Office Visit [facility] [address] [place] [address] documented as of this encounter Goals Goal [...] documented as of this encounter Care Teams Emergency Management Program Specialist Relationship Specialty Start Date End Date Patricia Berry MD [address] [place] [address] PCP - General Family Medicine 05/11/21 Craig Ochoa, Caroline [address] [place] [phone] Pharmacist Internal Medicine 05/24/23 documented as of this encounter
--- OUTSIDE RECORDS SUMMARY | 2024-12-08 18:34 | XMS_ITS | Encounter Summary ---
Author Organization [employer] Address [address] [facility] 7t [place] [address] Care Team Providers Care Appraiser Name Role Phone Patricia Berry MD Primary Care Provider [phone] Criag Ochoa PharmD Unavailable [phone] Reason for Visit * Reason Onset Date Comments callback requested 08/13/2024 Encounter Details Date Type Department Care Team ([facility] st Contact Info) Description 08/13/2024 Telephone [facility] [address] [place], [place] [phone] Patricia Berry MD [address] [place], [place] [phone] callback requested Social History Tobacco Use Types [...] the past 12 months, has t he [employer], gas, oil or water company threatened to [...] Description 01/05/2025 11:00 AM EDT Office Visit [facility] [address] [place] [address] documented as of this encounter Goals Goal Patient Goal Type Associated Problems Recent Progress Patient-Stated? Author Blood Pressure < 140/90 Blood Pressure 113/69( 025 3:47 PM EDT) No Craig Ochoa, ShawnD documented as of this encounter Visit Diagnoses Not on filedocumented in this encounter Additional Health Concerns Assessment Noted Time PHQ-9 Depression Total Score: 0 11/27/19 24 10:58 AM EDT documented as of this encounter Care Teams Appraiser Relationship Specialty Start Date End Date Patricia Berry MD [address] [place] [address] PCP - General Family Medicine 05/11/21 Craig Ochoa, Caroline [address] [place] [phone] Pharmacist Internal Medicine 05/24/23 documented as of this encounter
--- OUTSIDE RECORDS SUMMARY | 2024-12-08 18:34 | XMS_ITS | Encounter Summary ---
Author Organization [employer] Address [address] [facility] 7t [place] [address] Care Team Providers Care Budget And Policy Analyst Name Role Phone Patricia Berry MD Primary Care Provider [phone] Craig Ochoa PharmD Unavailable [phone] Reason for Visit * Reason Comments Med Refill Encounter Details Date Type Department Care Team (Late st Contact Info) Description 06/12/2024 Refill [facility] [address] [place] [address] Patricia Berry MD [address] [place], [place] [phone] Social History Tobacco Use Types Packs/Day Years [...] Office Visit [facility] [address] [place] [address] documented as of this encounter Goals Goal [...] documented as of this encounter Care Teams Budget And Policy Analyst Relationship Specialty Start Date End Date Patricia Berry MD [address] [place] [address] PCP - General Family Medicine 05/11/21 Craig Ochoa, Caroline [address] [place] [phone] Pharmacist Internal Medicine 05/24/23 documented as of this encounter
--- OUTSIDE RECORDS SUMMARY | 2024-12-08 18:34 | XMS_ITS | Encounter Summary ---
Author Organization [employer] Address [address] [facility] 7t [place] [address] Care Team Providers Care Solar Applications Development Engineer Name Role Phone Patricia Berry MD Primary Care Provider [phone] Craig Ocoha PharmD Unavailable [phone] Reason for Visit * Reason Onset Date Comments Appointment Request 10/21/2024 Encounter Details Date Type Department Care Team ([facility] st Contact Info) Description 10/21/2024 Telephone [facility] MEDICINE [address] [place], [place] [phone] Patricia Berry MD [address] [place], [place] [phone] Appointment Request Social History Tobacco Use Types [...] the past 12 months, has t he [employer], gas, oil or water [employer] threatened to shut off services in your [...] R/s Appt from 10/21/24. Contact pt at [phone] documented in this encounter Plan of Treatment Upcoming Encounters Date Type Department Care Team (Late st Contact Info) Description 01/05/2025 11:00 AM EDT Office Visit [facility] MED[facility]INE [address] [place] [address] documented as of this encounter Goals Goal [...] documented as of this encounter Care Teams Solar Applications Development Engineer Relationship Specialty Start Date End Date Patricia Berry MD [address] [place] [address] PCP - General Family Medicine 05/11/21 Craig Ochoa, ShawnD [address] [place] [address] Pharmacist Internal Medicine 05/24/23 documented as of this encounter
--- OUTSIDE RECORDS SUMMARY | 2024-12-08 18:34 | XMS_ITS | Data Portability ---
Author Organization [place] - [facility], [facility] Address [address] [place] [address] Care Team Providers Care Speech Pathology Supervisor Name Role Phone NENITA HILL Primary Care Provider Assessment Encounter Date Assessment Date Assessment LastModified [...] year , or sooner if problems arise. [email or web address] Not available 06/05/2024 16:03:44 Plan of Treatment [...] 316 rt knee 4v cw 2024 025 [email or web address] [facility], [address], [address], [place], [address], 10/20/2024 10:33:54 XR, knee, 3 view - room 316 lt knee 3v cw 2024 025 [email or web address] [facility], [address], [place], [address], 10/20/2024 10:33:54 XR, lumbar spine, 2 view - RM 302 LS 2024 025 [email or web address] [facility], [address], [place], [address], 10/22/2024 12:03:18 XR, knee, 3 view - 201 3v 2nd po LTKR 2023 024 [email or web address] [facility], [address], [place], [address], 06/25/2024 08:50:34 Medication Orders pregabal in 75 mg capsule 2024 025 [id number], [address] [place], [address], 10/28/2024 13:13:38 diclofen ac sodium 75 mg tablet,d elayed release 2024 025 [facility], [address] [place], [address], 10/28/2024 13:17:22 Methylpr ed DP 4 mg tablets in a dose pack 2024 025 [facility], [address] [place], [address], 10/07/2024 16:27:21 pregabal in 75 mg capsule 2024 025 [facility], [address] [place], [address], 10/07/2024 16:27:22 baclofen 10 mg tablet 2023 025 [employer] [facility], [address] [facility], [place], [address], 10/08/2024 10:57:11 Patient TargetsNo targets recorded. Patient [...] /uL 3.4-10 .8 normal Not Available [facility] ([facility]) [address] [place], [address], 05/28/2024 08:09:27 05/27/2005/28/2024 CBC WITH DIFFE RENTI AL/PL ATELE T RBC 4.67 x10e6 /uL 4.14-5 .80 normal Not Available [facility] ([facility]) [address] [place], [address], 05/28/2024 08:09:27 05/27/20 24 05/28/2024 CBC WITH DIFFE RENTI AL/PL ATELE T hemoglobin 13.5 g/dL 13.0-1 7.7 normal Not Available [facility] ([facility]) [address] [place], [address], 05/28/2024 08:09:27 05/27/2005/28/2024 CBC WITH DIFFE RENTI AL/PL ATELE T hematocrit 41.6 % 37.5-5 1.0 normal Not Available [facility] ([facility]) [address] [place], [address], 05/28/2024 08:09:27 05/27/20 24 05/28/2024 CBC WITH DIFFE RENTI AL/PL ATELE T MCV 89 fL 79-97 normal Not Available [facility] ([facility]) [address] [facility], [place], [address], 05/28/2024 08:09:27 05/27/20 24 05/28/2024 CBC WITH DIFFE RENTI AL/PL ATELE T MCH 28.9 pg 26.6-3 3.0 normal Not Available [facility] ([facility]) [address] [facility], [place], [address], 05/28/2024 08:09:27 05/27/20 24 05/28/2024 CBC WITH DIFFE RENTI AL/PL ATELE T MCHC 32.5 g/dL 31.5-3 5.7 normal Not Available [facility] ([facility]) [address] [facility], [place], [address], 05/28/2024 08:09:27 05/27/2005/28/2024 CBC WITH DIFFE RENTI AL/PL ATELE T RDW 13.8 % 11.6-1 5.4 Not Available [facility] ([facility]) [address] [place], [address], 05/28/2024 08:09:27 05/27/20 24 05/28/2024 CBC WITH DIFFE RENTI AL/PL ATELE T platelets 310 x10e3 /uL 150-45 0 normal Not Available [facility] ([facility]) [address] [place], [address], 05/28/2024 08:09:27 05/27/20 24 05/28/2024 CBC WITH DIFFE RENTI AL/PL ATELE T neutrophils 53 % not estab. normal Not Available [facility] ([facility]) [address] [facility], [place], [address], 05/28/2024 08:09:27 05/27/20 24 05/28/2024 CBC WITH DIFFE RENTI AL/PL ATELE T lymphs 29 % not estab. normal Not Available [facility] ([facility]) [address] [facility], [place], [address], 05/28/2024 08:09:27 05/27/2005/28/2024 CBC WITH DIFFE RENTI AL/PL ATELE T monocytes 10 % not estab. normal Not Available [facility] ([facility]) [address] [facility], [place], [address], 05/28/2024 08:09:27 05/27/2005/28/2024 CBC WITH DIFFE RENTI AL/PL ATELE T eos 6 % not estab. normal Not Available [facility] ([facility]) [address] [facility], [place], [address], 05/28/2024 08:09:27 05/27/20 24 05/28/2024 CBC WITH DIFFE RENTI AL/PL ATELE T basos 1 % not estab. normal Not Available [facility] ([facility]) [address] [facility], [place], [address], 05/28/2024 08:09:27 05/27/2005/28/2024 CBC WITH DIFFE RENTI AL/PL ATELE T immature cells MEDICAL OFFICE TECHNICIAN Not Available [facility] ([facility]) [address] [facility], [place], [address], 05/28/2024 08:09:27 05/27/2005/28/2024 CBC WITH DIFFE RENTI AL/PL ATELE T neutrophils (absolute) 4.6 x10e3 /uL 1.4-7. 0 normal Not Available [facility] ([facility]) [address] [place], [address], 05/28/2024 08:09:27 05/27/20 24 05/28/2024 CBC WITH DIFFE RENTI AL/PL ATELE T lymphs (absolute) 2.5 x10e3 /uL 0.7-3. 1 normal Not Available [facility] ([facility]) [address] [facility], [place], [address], 05/28/2024 08:09:27 05/27/20 24 05/28/2024 CBC WITH DIFFE RENTI AL/PL ATELE T monocytes(ab solute) 0.9 x10e3 /uL 0.1-0. 9 normal Not Available [facility] ([facility]) [address] [facility], [place], [address], 05/28/2024 08:09:27 05/27/20 24 05/28/2024 CBC WITH DIFFE RENTI AL/PL ATELE T eos (absolute) 0.6 x10e3 /uL 0.0-0. 4 above high normal Not Available [facility] ([facility]) [address] [facility], [place], [address], 05/28/2024 08:09:27 05/27/20 24 05/28/2024 CBC WITH DIFFE RENTI AL/PL ATELE T baso (absolute) 0.0 x10e3 /uL 0.0-0. 2 normal Not Available [facility] ([facility]) [address] [facility], [place], [address], 05/28/2024 08:09:27 05/27/20 24 05/28/2024 CBC WITH DIFFE RENTI AL/PL ATELE T immature granulocytes 1 % not estab. Not Available [facility] ([facility]) [address] [facility], [place], [address], 05/28/2024 08:09:27 05/27/20 24 05/28/2024 CBC WITH DIFFE RENTI AL/PL ATELE T immature grans (abs) 0.1 x10e3 /uL 0.0-0. 1 Not Available [facility] ([facility]) [address] [facility], [place], [address], 05/28/2024 08:09:27 05/27/20 24 05/28/2024 CBC WITH DIFFE RENTI AL/PL ATELE T NRBC MEDICAL OFFICE TECHNICIAN Not Available [facility] ([facility]) [address] [facility], [place], [address], 05/28/2024 08:09:27 05/27/20 24 05/28/2024 CBC WITH DIFFE RENDIPAK AL/PL ATELE T hematology comments: MEDICAL OFFICE TECHNICIAN Not Available [facility] ([facility]) [address] [facility], [place], [address], 05/28/2024 08:09:27 05/27/20 24 05/28/2024 SEDIM ENTAT ION RATE- WESTE RGREN sedimentatio n rate-westerg lauren 66 mm/HR 0-30 above high normal Not Available [facility] ([facility]) [address] [facility], [place], [address], 05/28/2024 08:09:28 05/27/20 24 05/28/2024 C-PHUONG CTIVE PROTE IN, QUANT C-reactive protein, quant 24 mg/L 0-10 above high normal Not Available [facility] ([facility]) [address] [facility], [place], [address], 05/28/2024 08:09:29 05/05/20 24 05/05/2024 US, neelle x, venou s, lower extre mity No observ ation record ed. [email or web address] [facility] [address] [facility] [address], [place], [address], 05/08/2024 07:26:26 05/07/20 24 05/07/2024 XR, knee, 3 view [email or web address] ?Encry pted=s hAaTro YD8dLq bEUv6g %2BXZw aYqtaq 0bqfl% 2Fg9IQ a4ajBk vP9nXo QUaueC m3YtLR FvZlgJ JJ8mAn HZtai3 4d3495 AC0Kqa nSFVaG vKiQtr Mw INTERFACE [facility] [address], [place], [address], 05/07/2024 10:17:47 05/07/20 24 05/07/2024 XR, knee, 3 view [email or web address] ?Encry pted=s hAaTro YD8dLq bEUv6g %2BXZw aYqtaq 0bqfl% 2Fg9IQ a4ajBk vP9nXo QUaueC m3YtLR FvZlgJ J8[place] HZtai3 8r5730 AC0Kqa nSFVaG vKiQtr MwF INTERFACE [facility] [address], [place], [address], 05/07/2024 10:17:49 06/05/20 24 06/05/2024 XR, knee, 3 view [email or web address] ?Encry pted=s hAaTro YD8dLq bEUv6g %2BXZw aYqtaq 0bqfl% 2Fg9IQ a4ajBk vP9nXo QUaueC m3YtLR FvZlgJ JJ8[place] HZtai3 6z0831 AC0Kqa HyCUaK mKiQtr MwF INTERFACE [facility] [address] [facility] [address] [facility] [address], [place], [address], 06/05/2024 14:57:19 06/05/20 24 06/05/2024 XR, knee, 3 view [email or web address] ?Encry pted=s hAaTro YD8dLq bEUv6g %2BXZw aYqtaq 0bqfl% 2Fg9IQ a4ajBk vP9nXo QUaueC m3YtLR FvZlgJ JJ8mAn HZtai3 4d3014 AC0Kqa HyCUaK mKiQtr MwF INTERFACE [facility] [address], [place], [address], 06/05/2024 14:57:21 10/07/19 25 10/07/2024 XR, lumba r spine , 2 view [email or web address] ?Encry pted=s hAaTro YD8dLq bEUv6g %2BXZw aYqtaq 0bqfl% 2Fg9IQ a4ajBk vP9nXo QUaueC m3YtLR FvZlgJ JJ8mAn HZtai3 0i5951 AC0Kqb XmDWae mKiQtr MwF INTERFACE [facility] [address], [place], [address], 10/07/2024 15:59:18 10/07/19 25 10/07/2024 XR, lumba r spine , 2 view [email or web address] ?Encry pted=s hAaTro YD8dLq bEUv6g %2BXZw aYqtaq 0bqfl% 2Fg9IQ a4ajBk vP9nXo QUaueC m3YtLR FvZlJ JJ8mAn HZtai3 3n2025 AC0Kqb XmDWae mKiQtr MwF INTERFACE [facility] [address] [facility] [address], [place], [address], 10/07/2024 15:59:20 10/08/19 25 10/08/2024 XR, knee, 3 view [email or web address] ?Encry pted=s hAaTro YD8dLq bEUv6g %2BXZw aYqtaq 0bqfl% 2Fg9IQ a4ajBk vP9nXo QUaueC m3YtLR FvZlg JJ8mAn HZtai3 0f1035 AC0Kqb XiFUaW lKiQtr MwF INTERFACE [facility] [address], [place], [address], 10/08/2024 11:01:33 10/08/19 25 10/08/2024 XR, knee, 3 view [email or web address] ?Encry pted=s hAaTro YD8dLq bEUv6g %2BXZw aYqtaq 0bqfl% 2Fg9IQ a4ajBk vP9nXo QUaueC m3YtLR FvZlgJ JJ8mAn HZtai3 5k6420 AC0Kqb XiFUaW lKiQtr MwF INTERFACE [facility] [address], [place], [address], 10/08/2024 11:01:35 Result Notes None recorded. Problems Name Problem SNOMED Code Status Onset Date Resolution Date Notes Provider Name and Address Organization Details Recorded Time No complaint s 875462295 Active Status: 'I'; Not Available [facility] 4 09:12:04 Osteoarth ritis of left knee joint 014253568885 109 Active 2023 Pasquale Hadley MD [address], [place], [address] , [facility] 4 12:44:49 Osteoarth ritis of right knee joint 454937331475 100 Active 2023 Pasquale Hadley MD [address], [place], [address] , [facility] 4 12:44:59 History of arthropla sty of left knee 795352525009 9104 Active 2023 Pasquale Hadley MD [address], [place], [address] , [facility] 4 17:40:32 History of left total knee replaceme nt 609661958774 9105 Active 2023 Pasquale Hadley MD [address], [place], [address] , [facility] 4 16:03:43 Pain of knee region 8030793036 Active 2024 colton serrano [facility] 5 10:50:39 Acute meniscal tear, medial, periphera l detachmen t 982391046 Active 2013 Status: 'A'; Not Available [facility] 4 10:56:46 Chondroma lacia of left patella 758628195046 106 Active 2016 Problem Code: M22.42; Problem Code Type: ICD-10; Status: 'A'; Not Available [facility] 4 10:56:46 Low back pain 780141387 Active 2023 RADHA serrano, [facility] 4 10:05:48 Bilateral osteoarth ritis of knees 968973404311 107 Active 2023 Shara Lombardo PA-C [address], [place], [address] , [facility] 15:08:51 Problem Notes None recorded. Procedures Surgical History Date Name Laterality Status Provider Name and Address Organization Details Recorded Time 5 Knee Kenalog 1cc L/R completed Kellie Muse PA-C [address], [place], [address], [facility] 10/08/2024 15:16:41 4 39483 Therapeutic Exercise (1:1) completed Dorie Parks ROLL COVERER [address], [place], [address], [facility] 05/20/2024 04:51:26 4 42998: Hot or Cold Pack completed Dorie Parks ROLL COVERER [address], [place], [address], [facility] 05/20/2024 04:57:00 4 05305: Manual therapy completed Dorie Parks PTA [address], [place], [address], [facility] 05/20/2024 04:51:35 4 28584 Therapeutic Exercise (1:1) completed Efe Grijalva DPT [address], [place], [address], [place] [facility] 05/14/2024 14:47:18 4 92991: Low complexity PT Eval completed Efe Grijalva DPT [address], [place], [address], [place] [facility] 05/14/2024 14:47:22 4 Knee Kenalog 40 1cc Injection, Bilateral completed Shara Lombardo PA-C [address], [place], [address], [place] [facility] 01/14/2024 15:08:41 Imaging Results Imaging Date Name Status LastModified by Organiz ation Details LastModified Time 05/05/2024 US, duplex, venous, lower extremity completed [email or web address] [facility] [address], [place], [address], 05/08/2024 07:26:26 05/07/2024 XR, knee, 3 view completed INTERFACE [facility] [address], [place], [address], 05/07/2024 10:17:47 05/07/2024 XR, knee, 3 view completed INTERFACE [facility] [address], [place], [address], 05/07/2024 10:17:49 06/05/2024 XR, knee, 3 view completed INTERFACE [facility] [address], [place], [address], 06/05/2024 14:57:19 06/05/2024 XR, knee, 3 view completed INTERFACE [facility] [address], [place], [address], 06/05/2024 14:57:21 10/07/2024 XR, lumbar spine, 2 view completed INTERFACE [facility] [address], [place], [address], 10/07/2024 15:59:18 10/07/2024 XR, lumbar spine, 2 view completed INTERFACE [facility] [address], [place], [address], 10/07/2024 15:59:20 10/08/2024 XR, knee, 3 view completed INTERFACE [facility] [address], [place], [address], 10/08/2024 11:01:33 10/08/2024 XR, knee, 3 view completed INTERFACE [facility] [address], [place], [address], 10/08/2024 11:01:35 Procedure Notes None recorded. Medical Equipment None Reported. Allergies Allergen ID Allergen Name Allergen Category Reaction Reaction Severity Criticality Documentation Date Start Date Code Code System Note Provider Name and Address Organization Details Recorded Time 978482 Celebrex medicatio n Not available Not available Not available 10/28/2024 55647 7 RxNorm NABIL serrano [facility] 5 07:18:56 43113 egg extract food,medi cation Not available Not available Not available 10/14/20232014 67507 15 RxNorm NABIL serrano [facility] 5 07:19:01 Medications Name Sig Start Date [...] Not Available topiramate 25 mg tablet TOME RADHA TABLETA TODOS LOS D AL ACOSTARSE 10/08 [...] diclofenac sodium 75 mg tablet,angela yed release TOME 1 TABLETA POR VIA ORAL DOS VECES AL YONATHAN CON LAS COMIDAS CUANDO SEA NECESARIO PARA EL DOLOR. DO NOT TAKE OTC NSAIDS WHILE ON THIS MEDICATIO N active Not Available Not Available No [...] Updated DateTime 05/28/2024 177.8 cm 50.2 kg/m2 931746.33 g colton valenzuela [place] [facility] 05/28/2024 13:58:00 Date Recorded Body height Provider Name an d Address Organization Details Last Updated DateTime 06/05/2024 177.8 cm Pasquale painting MD [address] [place], [place] [address], [place], [address], [place] [facility] 06/05/2024 14:44:36 Date Recorded Body height Body mass index (BMI) Body weight Provider Name and Address Organization Details Last Updated DateTime 10/07/2024 177.8 cm 50.2 kg/m2 054750.33 g MATHEUS HOPSONRA [facility] 10/07/2024 15:54:42 Date Recorded Body height Body mass index (BMI) Body weight Provider Name and Address Organization Details Last Updated DateTime 10/08/2024 177.8 cm 50.2 kg/m2 167312.33 g colton valenzuela [facility] 10/08/2024 10:46:32 Date Recorded Body height Body mass index (BMI) Body weight Provider Name and Address Organization Details Last Updated DateTime 10/28/2024 177.8 cm 50.2 kg/m2 210022.33 g NABIL COTTON [facility] 10/28/2024 12:56:34 Social History None recorded. Functional Status None recorded. Mental Status None recorded. Family History Nothing Reported. Medical History No medical history recorded. Past Encounters Encounter ID Performer Location Encounter Start Date Encounter Closed Date Diagnosis/Indication Diagnosis SNOMED-CT Code Diagnosis ICD10 Code Diagnosis Note [id number] MD [facility] [address] [place] [address] 10/29/2023 10:18:50 11/13/2023 19:41:31 Pain in left foot 7882583900 80575 M79.672 Postoperative visit 1836 82269 Z48.89 [id number] Chris Dumas MD [place] [address] [place] [address] 11/26/2023 13:04:14 12/17/2023 07:15:05 [id number] Chris Dumas MD [place] [address] [place] [address] 12/18/2023 14:50:40 01/10/2024 09:08:50 Low back pain 721485116 M54.50 oxycodone [id number] SHIVAM Hooker 2[address] floor [address] [place] [address] 01/14/2024 14:47:01 01/14/2024 15:34:53 Bilateral osteoarthritis of knees 5076860215 17961 M17.0 Nature of the diagnosis discussed with [...] ve management versus total joint arthroplas ty. [id number] Chris Dumas MD [place] [address] [place] [address] 01/22/2024 15:06:36 02/26/2024 11:23:16 Lumbar radiculopathy 052864880 M54.16 Low back pain 129387600 M54.50 oxycodone Pain in lumbar spine 267 298869 M54.51 Cervical radiculopathy 20839592 M54.12 [id number] Chris Dumas MD [place] [address] [place] [address] 01/31/2024 07:49:13 03/06/2024 10:33:26 Lumbar radiculopathy 138968479 M54.16 Postoperative visit 1836 95104 Z48.89 [id number] MD [facility] Mercer 2[address] [place] [address] 03/10/2024 10:57:29 03/27/2024 07:46:32 Osteoarthritis of left knee joint 3804260910 59844 M17.12 Osteoarthr itis of right knee joint 1245243305 28417 M17.11 [id number] SHIVAM Meyers 2[address] [place] [address] 04/17/2024 10:50:17 05/13/2024 04:07:40 [id number] SHIVAM Rodriguez 2nd floor [address] [place] [address] 05/07/2024 09:52:19 05/26/2024 09:51:12 History of left total knee replacement 1323057066 227055 Z96.155 [id number] [facility] [address] [place] [address] 05/13/2024 08:25:12 05/13/2024 09:09:22 History of left total knee replacement 7001550014 924167 Z96.652 Z47.1 [id number] Mansoor Mathewser, PT [facility] [address] [place] [address] 05/19/2024 11:16:44 05/19/2024 12:09:19 History of left total knee replacement 0061016142 594992 Z96.652 Z47.1 [id number] Kellie Muse PA-C [facility] [address] [place] [address] 05/28/2024 13:40:50 06/19/2024 09:56:09 Knee joint prosthesis present 0814960629 02 Z96.652 Postoperative visit 1836 40428 Z48.89 [id number] Pasquale Hadley MD [facility] [address] [place] [address] 06/05/2024 14:22:20 06/25/2024 08:50:33 History of left total knee replacement 7025090381 649969 Z96.016 [id number] Silvia Danielle, JUMPBASTING FACING BASTER [facility] - [facility] [address] [place] [address] 10/07/2024 15:48:06 10/22/2024 12:03:18 Low back pain 955988349 M54.50 Lumbar radiculopathy 128 915427 M54.16 Postoperative visit 1836 11736 Z48.89 History of lumbar fusion 3802990125 9106 Z98.1 [id number] Kellie Muse PA-C [facility] - [facility] [address] [place] [address] 10/08/2024 10:23:14 10/20/2024 10:33:54 History of left total knee replacement 1713872259 588129 Z96.652 Pain of knee region 1003 053308 M25.561 Osteoarthr itis of right knee joint 6000937571 04171 M17.11 Contusion of right knee 5018280850 9778846 S80.01XA Contusion of left knee 4971466849 7947718 S80.02XA [id number] Silvia Danielle, AILIN MARTELA - [facility] [address] [place] [address] 10/28/2024 12:45:36 11/10/2024 15:39:53 Low back pain 635793324 M54.50 Lumbar radiculopathy 128 502894 M54.16 Health Concerns Section Related Observation LastModified by Organization Detai ls LastModified Time None Recorded Concern Status LastModified by Organization Details LastModified Time None Recorded Advance Directives Directive None Recorded Payers Encounter Date Sequence Insurance Name Policy Number Policy Leiva Covered Member ID Leiva Member ID Guarantor Name 05/28/2024 1 [facility] - DOS ON OR AFTER 2022 - ONE CARE (MEDICARE REPLACEMENT/ADV ANTAGE - HMO) Brady Dale [id number] Brady Dale 06/05/2024 1 [employer] - DOS ON OR AFTER 2022 - ONE CARE (MEDICARE REPLACEMENT/ADV ANTAGE - HMO) Brady Dale [id number] Brady Dale 10/07/2024 1 [employer] - DOS ON OR AFTER 2022 - ONE CARE (MEDICARE REPLACEMENT/ADV ANTAGE - HMO) Brady Dale [id number] Brady Dale 10/08/2024 1 [facility] - DOS ON OR AFTER 2022 - ONE CARE (MEDICARE REPLACEMENT/ADV ANTAGE - HMO) Brady Dale [id number] Brady Dale 10/28/2024 1 [facility] - DOS ON OR AFTER 2022 - ONE CARE (MEDICARE REPLACEMENT/ADV ANTAGE - HMO) Brady Dale [id number] Brady Dale Notes Date Note Type Note [...] have been answered. Kellie Muse PA-C [address], [place], [address], [facility] 05/29/2024 14:06:57 06/05/2024 text/html History of [...] patient? s chart. Pasquale Hadley MD [address], [place], [address], [facility] 06/05/2024 16:03:55 10/07/2024 text/html I am [...] X-rays ordered, obtained, and independently reviewed at [facility] today. 2 views lumbar spine consistent with [...] TKR history FOLLOW UP: prn Speech recognition shoe repairer apprentice software was used to create portions of this document. An attempt at proofreading has been made to minimize errors. Please call for corrections. Silvia Danielle, JUMPBASTING FACING BASTER [address] [facility] [address], [place], [address], [place] [facility] 10/07/2024 16:58:46 10/08/2024 text/html [...] fully weight-bear. Denies any instability. He takes iigc-ruy-djlkmkh medication intermittently for his pain. He is hoping to receive a cortisone injection for his right knee. PMH/PSH/MEDS/ALL/FMH/S OC HX/ROS are reviewed in detail per my medical intake sheet. General Exam: Vital signs are as noted below Mental status: Alert and lucid. Normal insight, affect and grooming. 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 No spasticity [...] compressible. X-rays ordered, obtained and reviewed at [facility] Today include 4 views of bilateral knees. [...] needed. All questions answered. Kellie Muse PA-C [address] [place] [address] [address] [facility], [place], [address], [facility] 10/08/2024 15:18:18 10/28/2024 text/html I am [...] repeat XR s/p lumbar fusion Speech recognition shoe repairer apprentice software was used to create portions of this document. An attempt at proofreading has been made to minimize errors. Please call for corrections. Silvia Danielle, JUMPBASTING FACING BASTER [address], [place], [address], [facility] - [facility] 10/28/2024 13:18:01
--- OUTSIDE RECORDS SUMMARY | 2024-12-08 18:34 | XMS_ITS | Encounter Summary ---
Author Organization [employer] Address [address] [facility] 7t [place] [address] Care Team Providers Care Occupational Health Physiotherapist Name Role Phone Patricia Berry MD Primary Care Provider [phone] Craig Ochoa PharmD Unavailable [phone] Reason for Visit * Reason Comments Med Refill Encounter Details Date Type Department Care Team ([facility] st Contact Info) Description 03/07/2024 Refill [facility] [address] [place], [place] [phone] Patricia Berry MD [address] [place] [address] Chronic pain syndrome Social History Tobacco Use [...] Description 01/05/2025 11:00 AM EDT Office Visit [facility] MEDICINE [address] [place] [address] documented as of this encounter Goals Goal [...] documented as of this encounter Care Teams Occupational Health Physiotherapist Relationship Specialty Start Date End Date Patricia Berry MD [address] [place] [address] PCP - General Family Medicine 05/11/21 Craig Ochoa, PharmD [address] [place] [address] Pharmacist Internal Medicine 05/24/23 documented as of this encounter
--- OUTSIDE RECORDS SUMMARY | 2024-12-08 18:34 | XMS_ITS | Encounter Summary ---
Author Organization [employer] Address 75 [facility] 7t [place] [address] Care Team Providers Care Instructor Technical Training Name Role Phone Patricia Berry MD Primary Care Provider [phone] Craig Ochoa PharmD Unavailable [phone] Reason for Visit * Reason Comments Med Change Request Encounter Details Date Type Department Care Team ([facility] st Contact Info) Description 05/12/2024 Refill [facility] MEDICINE [address] [place] [address] Patricia Berry MD [address] [place] [address] Seasonal allergies Social History Tobacco Use Types [...] Description 01/05/2025 11:00 AM EDT Office Visit [facility] MEDICINE [address] [place] [address] documented as of this encounter Goals Goal [...] as of this encounter Care Teams Instructor Technical Training Relationship Specialty Start Date End Date Patricia Berry MD [address] [place] [address] PCP - General Family Medicine 05/11/21 Craig Ochoa, PharmD [address] [place] [address] Pharmacist Internal Medicine 05/24/23 documented as of this encounter
--- OUTSIDE RECORDS SUMMARY | 2024-12-08 18:34 | XMS_ITS | Encounter Summary ---
Author Organization [employer] Address 75 [facility] 7t [place] [address] Care Team Providers Care Train Control Electronic Technician Name Role Phone Patricia Berry MD Primary Care Provider [phone] Craig Ochoa PharmD Unavailable [phone] Reason for Visit * Reason Onset Date Comments Med Refill 04/09/2023 Encounter Details Date Type Department Care Team ([facility] st Contact Info) Description 04/09/2023 Telephone [facility] MEDICINE 230 [place], [place] [phone] Patricia Berry MD [address] [place], [place] [phone] Med Refill Social History Tobacco Use Types [...] Description 01/05/2025 11:00 AM EDT Office Visit [facility] MEDICINE [address] [place] [address] documented as of this encounter Visit Diagnoses Not on filedocumented in this encounter Care Teams Train Control Electronic Technician Relationship Specialty Start Date End Date Patricia Berry MD [address] [place] [address] PCP - General Family Medicine 05/11/21 Craig Ochoa, ShawnD [address] [place] [address] Pharmacist Internal Medicine 05/24/23 documented as of this encounter
--- OUTSIDE RECORDS SUMMARY | 2024-12-08 18:34 | XMS_ITS | Encounter Summary ---
Author Organization [employer] Address 75 [facility] 7t [place] [address] Care Team Providers Care Farm Truck Driver Name Role Phone Patricia Berry MD Primary Care Provider [phone] Craig Ochoa PharmD Unavailable [phone] Reason for Visit * Reason Onset Date Comments Med Refill 06/29/2024 Encounter Details Date Type Department Care Team ([facility] st Contact Info) Description 06/29/2024 Telephone [facility] MEDICINE [address] [place], [place] [phone] Patricia Berry MD 230 [place], [place] [phone] Med Refill Social History Tobacco Use Types [...] the past 12 months, has t he [employer], gas, oil or water company threatened to [...] 50 MG tablet To be sent to: [facility]/pharmacy #[id number] documented in this encounter Plan of Treatment Upcoming Encounters Date Type Department Care Team (Late st Contact Info) Description 01/05/2025 11:00 AM EDT Office Visit [facility] MEDICINE [address] [place] [address] documented as of this encounter Goals Goal [...] documented as of this encounter Care Teams Farm Truck Driver Relationship Specialty Start Date End Date Patricia Berry MD [address] [place] [address] PCP - General Family Medicine 05/11/21 Craig Ochoa, ShawnD [address] [place] [address] Pharmacist Internal Medicine 05/24/23 documented as of this encounter
--- OUTSIDE RECORDS SUMMARY | 2024-12-08 18:34 | XMS_ITS | Data Portability ---
Author Organization [employer] Address [address] [place] [address] Care Team Providers Care Drilling Supervisor Name Role Phone HIM [facility] Primary Care Provider Assessment Encounter Date Assessment Date Assessment LastModified by Organization Details LastModified Time 01/09/2024 01/09/2024 I have reviewed and agree with the Assessment and Plan as documented by the Sporting Goods Salesperson. I provided real-time medical direction via phone [...] Assessment and Plan as documented by the Sporting Goods Salesperson. I provided real-time medical direction via phone [...] mg/mL injection solution 2024 025 [email or web address] [id number], [address] [place], [address], 5 22:10:50 ketorolac 60 mg/2 mL intramuscul ar solution 2023 024 [email or web address] [id number], [address] [place], [address], 4 16:33:14 Patient TargetsNo targets recorded. Patient InstructionsNo instructions recorded. Reason for Referral None Reported. Medical Equipment None Reported. Allergies Allergen ID Allergen Name Allergen Category Reaction Reaction Severity Criticality Documentation Date Start Date Code Code System Note Provider Name and Address Organization Details Recorded Time 636 egg extract food,medi cation Not available Not available Not available 01/30/2022 61700 15 RxNorm Not Available [employer] - production [...] propionate 50 mcg/actuatio n nasal spray,suspen bradly [place] 1 spray twice a day by intranasal [...] Updated DateTime 4 98 % 98 % 899443. 16 g 76 /min 16 /min 98.2 [...] % 132 mm[Hg] 82 mm[Hg] Not Available [employer] 4 07:01:47 Date Recorded Heart rate Oxygen saturation Oxygen saturation in Arterial blood by Pulse oximetry Respiratory rate Systolic blood pressure Diastolic blood pressure Provider Name and Address Organization Details Last Updated DateTime 4 78 /min 95 % 95 % 18 /min 152 mm[Hg] 76 mm[Hg] Not Available [employer] 4 16:26:36 Date Recorded Oxygen saturation Oxygen saturation in Arterial blood by Pulse oximetry Heart rate Respiratory rate Body temperature Systolic blood pressure Diastolic blood pressure Provider Name and Address Organization Details Last Updated DateTime 4 99 % 99 % 88 /min 16 /min 98.1 [degF] 132 mm[Hg] 86 mm[Hg] Not Available [employer] 4 12:33:11 Date Recorded Body weight Respiratory rate Body height Heart rate Body temperature Oxygen saturation Oxygen saturation in Arterial blood by Pulse oximetry Systolic blood pressure Diastolic blood pressure Provider Name and Address Organization Details Last Updated DateTime 5 57474.4 g 14 /min 172.72 cm 68 /min 98 [degF] 98 % 98 % 123 mm[Hg] 70 mm[Hg] Not Available [employer] 5 19:17:41 Social History None recorded. Functional Status None recorded. Mental Status None recorded. Family History Nothing Reported. Medical History No medical history recorded. Past Encounters Encounter ID Performer Location Encounter Start Date Encounter Closed Date Diagnosis/Indication Diagnosis SNOMED-CT Code Diagnosis ICD10 Code Diagnosis Note [id number] Gage Glez MD [facility] [address] [place] [address] 01/15/2022 19:51:24 05/03/2022 11:29:27 Sciatica 27929961 M54.32 Reports long-stand ing history of sciatica, worsened in the setting of lifting a heavy table. No evidence of cord compromise or neurovascu lar injury. Plan for pain control, PCP follow-up. [id number] Melissa Erwin MD [facility] - [facility] [address] [place] [id number] 01/30/2022 18:39:58 04/20/2022 15:04:08 Chronic low back pain [id number] M54.50 acute on chronic- gait off due to plantar fasciitis- flaring up back- cannot get appt w/ back specialist til 03/02. Advised to call in the AM to see if can move up. States ice/ heat/ Tylenol and Motrin not helping. Does not tolerate muscle relaxers- make him too drowsy, Got 30 mg Toradol 01/15 from [facility] w/ some relief- given repeat dose [id number] Maame Hodge MD [facility] - [facility] [address] [place] [phone] 02/26/2022 19:47:23 05/03/2022 18:33:03 Osteoarthritis of knee [id number] M17.9 [id number] Jay Jay Hammond MD [facility] - [facility] [address] [place] [id number] 03/04/2022 00:31:45 04/19/2022 15:39:58 Pain of left heel [id number] 272772 M79.672 51yo man presents with pain due [...] [id number] Vincent Quinonez MD [facility] - [facility] [address] [place] [phone] 03/10/2022 11:06:47 05/07/2022 12:27:39 Pain of right knee joint [id number] 19897 M25.561 Will give Toradol 30mg IM. Has close f/u with PCP. [id number] Concha Jacobs MD [facility] [address] [place] [phone] 12/11/2022 17:48:00 12/13/2022 09:21:21 Maxillary sinus pain 106016064 R51.9 Evaluation in the field was performed by my director of analytics colleague, as noted above, I provided real-time direction and supervisio n for this visit. 51yo M hx KOBY, asthma/BOTTOM MAN D currently on 10 day course Augmentin [...] shortness of breath, cough, chest pain, fever. [id number] BRAXTON FRANKLIN MD [facility] - [facility] [address] [place] [phone] 10/18/2023 19:19:43 10/20/2023 16:24:48 Sciatica [id number] M54.32 [id number] Niels Healy MD [facility] [address] [place] [phone] 11/13/2023 15:17:37 11/13/2023 20:03:22 Left side sciatica [id number] 05573 M54.32 This 52-year-ol d male has left leg sciatica that is acting up today. He will be having surgery for this in several weeks. OTC medication s have not been effective. He has responded to Toradol in the past. I ordered Toradol 30 mg IM. He will follow-up with his PCP. The patient agreed with this plan. [id number] Jay Jay Hammond MD [facility] - [facility] [address] [place] [id number] 12/31/2023 15:43:52 12/31/2023 17:52:20 Mechanical low back pain [id number] M54.50 53yo presents with acute on chronic [...] will call surgeon's office if pain persists. [id number] Keenan Booker MD [facility] - [facility] [address] [place] [phone] 01/09/2024 19:33:53 01/10/2024 10:26:18 Low back pain [id number] M54.50 [id number] Keenan Booker MD [facility] [address] [place] [phone] 01/29/2024 07:01:45 01/29/2024 21:26:39 Low back pain 717184758 M54.50 [id number] Cindy Peter MD [facility] [address] [place] [id number] 02/29/2024 16:26:32 03/01/2024 09:26:02 Pain of left knee joint [id number] 22564 M25.562 As noted, we were called to see this patient regarding concerns of knee pain. Evaluation in the field was performed by my director of analytics colleague, as noted above, I provided real-time [...] chest pain, dyspnea, changes to urine output. [id number] Gage Glez MD [facility] [address] [place] [id number] 04/30/2024 12:33:07 04/30/2024 20:44:34 Pain in lower limb 02430620 M79.606 Patient reporting pain in his lower extremity after surgery. On director of analytics arrival, patient had just finished up a call with his primary surgical team and was advised that his symptoms were to be expected post-proce durally and he should continue his prescribed pain regimen. We encouraged him to continue to follow-up with his orthopedic team. [id number] Maame Hodge MD [facility] [address] [place] [phone] 09/22/2024 19:17:39 09/22/2024 23:01:05 Low back strain [id number] S39.012A Health Concerns Section Related Observation LastModified by Organization Detai ls LastModified Time None Recorded Concern Status LastModified by Organization Details LastModified Time None Recorded Advance Directives Directive None Recorded Payers Encounter Date Sequence Insurance Name Policy Number Policy Leiva Covered Member ID Leiva Member ID Guarantor Name 01/09/2024 1 [employer] - DOS ON OR AFTER 2022 - DUAL ELIGIBLE - SENIOR LIVING OPTIONS AND ONE CARE (MEDICARE REPLACEMENT/ADV ANTAGE - HMO) Brady Dale [id number] Brady Dale 01/28/2024 1 [employer] - DOS ON OR AFTER 2022 - DUAL ELIGIBLE - SENIOR LIVING OPTIONS AND ONE CARE (MEDICARE REPLACEMENT/ADV ANTAGE - HMO) Brady Dale [id number] Brady Dale 02/29/2024 1 [employer] - DOS ON OR AFTER 2022 - DUAL ELIGIBLE - SENIOR LIVING OPTIONS AND ONE CARE (MEDICARE REPLACEMENT/ADV ANTAGE - HMO) Brady Dale [id number] Brady Dale 04/30/2024 1 [employer] - DOS ON OR AFTER 2022 - DUAL ELIGIBLE - SENIOR LIVING OPTIONS AND ONE CARE (MEDICARE REPLACEMENT/ADV ANTAGE - HMO) Brady Dale [id number] Brady Dale 09/22/2024 1 [employer] - DOS ON OR AFTER 2022 - DUAL ELIGIBLE - SENIOR LIVING OPTIONS AND ONE CARE (MEDICARE REPLACEMENT/ADV ANTAGE - HMO) Brady Dale [id number] Brady Dale Notes Date Note Type Note [...] [facility] with good effect. Member would like to be evaluated for another dose. .................... .................... .................... .................... .................... .................... .................... . Sporting Goods Salesperson Note From Tomas Mari: Pt co right [...] Pt education on signs indicating the ER. Sporting Goods Salesperson Allergies: Egg .................... .................... .................... .................... .................... .................... .................... . Disposition: Fulfilled Keenan Booker MD [address] [facility],[address], [place], [address], [facility]W [facility] 01/10/2024 10:10:32 01/28/2024 text/html [...] .................... .................... .................... .................... .................... .................... . Sporting Goods Salesperson Note From Leann Miles: Pt states he [...] surgeon scheduled for Saturday. Red flags reviewed. Sport[employer] Goods Salesperson Allergies: Egg .................... .................... .................... .................... .................... .................... .................... . Disposition: Fulfilled Keenan Booker MD [address] [place] [address],[address], [place], [address], [employer] 01/29/2024 07:11:52 02/29/2024 text/html CRC Nurse Triage Notes (Wilfredo Church): Reason For Request: PT reporting left knee pain going on 1 week>states having taken medication for it>believes he needs to call his surgeon in regards to it Chief Complaints: Pain PMH: Hypertension, COPD/Asthma Allergies: Egg Comments: Residency Director verified the member's name//address and phone number. Education provided on the response time and the member was advised to monitor reported s/s and seek emergency treatment if needed Pt reports left knee pain - x1 week - Denies swelling - Increased pain when ambulating - Denies any injury/trauma - Pain management requested .................... .................... .................... .................... .................... .................... .................... . Sporting Goods Salesperson Note From Pura Barros: Dispatched for the 53 yo male chief complaint of knee pain. U/a pt greets [facility] at door. Pt presents CA&Ox4, patent airway, [...] for 1 week even with Ibuprofen use. [facility] consulted and directs [facility] administration of 15mg Toradol IM - Deltoid. Pt administered 15mg Toradol without incident. Pt advised of all red flags. End of report. .................... .................... .................... .................... .................... .................... .................... . Disposition: Fulfilled Cindy Peter MD [address] [facility],[address], [place], [address], [employer] 02/29/2024 16:52:47 04/30/2024 text/html CRC Nurse Triage Notes (Sylvain Caban): Reason For Request: recent knee replacement Chief Complaints: Pain, Edema PMH: Hypertension, COPD/Asthma Allergies: Egg Comments: Residency Director verified the member's name//address and phone number. [...] .................... .................... .................... .................... .................... .................... . Sporting Goods Salesperson Note From Shaun Mujica: Dispatched to above [...] of infection, no obvious bruising or redness. [facility] contacted, spoke with Dr. Laura, advised of patient complaints and exam findings. [facility] recommends home care and follow up with surgical team. Patient advised of [facility] recommendations, home care and red flags. Patient has no additional questions or concerns at this time. SC8 clear. EOR. .................... .................... .................... .................... .................... .................... .................... . Disposition: Fulfilled Gage Glez MD [address] [facility],[address], [place], [address], [employer] 04/30/2024 17:04:55 09/22/2024 text/html CRC Nurse Triage [...] Allergies Reviewed at 09/22/2024 - 15:47 Comments: Residency Director verified the name//address and phone number. He [...] .................... .................... .................... .................... .................... .................... . Sporting Goods Salesperson Note From aErnest Salgado: Patient alert and oriented walks with [...] .................... .................... .................... .................... .................... .................... . [facility] Consulted: Maame Hodge .................... .................... .................... .................... .................... .................... .................... . Disposition: Fulfilled Maame Hodge MD [address] [place] [address],[address] [facility], [place], [address], [facility] - [facility] 09/22/2024 22:11:06
--- OUTSIDE RECORDS SUMMARY | 2024-12-08 18:34 | XMS_ITS | Encounter Summary ---
Author Organization [employer] Address [address] [facility] 7t [place] [address] Care Team Providers Care Wall Steamer Name Role Phone Patricia Berry MD Primary Care Provider [phone] Craig Ochoa PharmD Unavailable [phone] Reason for Visit * Reason Onset Date Comments Med Refill 09/08/2024 Encounter Details Date Type Department Care Team ([facility] st Contact Info) Description 09/08/2024 Telephone [facility] MEDICINE [address] [place], [place] [phone] Patricia Berry MD [address] [place], [place] [phone] Med Refill Social History Tobacco Use Types [...] the past 12 months, has t he [employer], gas, oil or water company threatened to [...] 50 MG tablet To be sent to: [facility]/pharmacy #[address] [place] [address] documented in this encounter Plan of Treatment Upcoming Encounters Date Type Department Care Team (Late st Contact Info) Description 01/05/2025 11:00 AM EDT Office Visit [facility] MEDICINE [address] [place], [place] [phone] documented as of this encounter Goals Goal [...] documented as of this encounter Care Teams Wall Steamer Relationship Specialty Start Date End Date Patricia Berry MD [address] [place] [address] PCP - General Family Medicine 05/11/21 Craig Ochoa, PharmD [address] [place] [address] Pharmacist Internal Medicine 05/24/23 documented as of this encounter
--- OUTSIDE RECORDS SUMMARY | 2024-12-08 18:34 | XMS_ITS | Encounter Summary ---
Author Organization [employer] Address [address] [facility] 7t [place] [address] Care Team Providers Care Lobster Fisherman Name Role Phone Patricia Berry MD Primary Care Provider [phone] Craig Ochoa PharmD Unavailable [phone] Reason for Visit * Reason Comments Med Refill Encounter Details Date Type Department Care Team (Late st Contact Info) Description 07/27/2024 Refill [facility] MEDICINE [address] [place] [address] Patricia Berry MD [address] [place] [address] Class 3 severe obesity due to excess [...] 01/05/2025 11:00 AM EDT Office Visit [facility] MEDICINE [address] [place] [address] documented as of this encounter Goals Goal Patient Goal Type Associated Problems Recent Progress Patient-Stated? Author Blood Pressure < 140/90 Blood Pressure 113/69( 025 3:47 PM EDT) No Craig Ochoa, PharmD documented as of this encounter Visit Diagnoses Diagnosis Class 3 severe obesity due to excess calories with serious comorbidity and body mass index (BMI) of 45.0 to 49.9 in adult documented in this encounter Additional Health Concerns Assessment Noted Time PHQ-9 Depression Total Score: 0 11/27/19 24 10:58 AM EDT documented as of this encounter Care Teams Lobster Fisherman Relationship Specialty Start Date End Date Patricia Berry MD [address] [place] [address] PCP - General Family Medicine 05/11/21 Craig Ochoa, PharmD [address] [place] [address] Pharmacist Internal Medicine 05/24/23 documented as of this encounter
--- OUTSIDE RECORDS SUMMARY | 2024-12-08 18:34 | XMS_ITS | Encounter Summary ---
Author Organization [employer] Address [address] [facility] 7t [place] [address] Care Team Providers Care Litigation Counsel Name Role Phone Patricia Berry MD Primary Care Provider [phone] Craig Ochoa PharmD Unavailable [phone] Reason for Visit * Reason Onset Date Comments FYI 04/06/2024 Encounter Details Date Type Department Care Team ([facility] st Contact Info) Description 04/06/2024 Telephone [facility] MEDICINE 230 [place], [place] [phone] Patricia Berry MD [address] [place], [place] [phone] FY Social History Tobacco Use Types Packs/Day [...] Description 01/05/2025 11:00 AM EDT Office Visit [facility] MEDICINE [address] [place] [address] documented as of this encounter Goals Goal [...] documented as of this encounter Care Teams Litigation Counsel Relationship Specialty Start Date End Date Patricia Berry MD [address] [place] [address] PCP - General Family Medicine 05/11/21 Craig Ochoa PharmD [address] [place] [address] Pharmacist Internal Medicine 05/24/23 documented as of this encounter
--- OUTSIDE RECORDS SUMMARY | 2024-12-08 18:34 | XMS_ITS | Encounter Summary ---
Author Organization [employer] Address [address] [facility] 7t [place] [address] Care Team Providers Care Emergency Medical Service Manager Name Role Phone Patricia Berry MD Primary Care Provider [phone] Craig Ochoa PharmD Unavailable [phone] Reason for Visit * Reason Comments Med Refill Encounter Details Date Type Department Care Team ([facility] st Contact Info) Description 01/08/2023 Refill [facility] [address] [place] [address] Patricia Berry MD [address] [place], [place] [phone] Moderate persistent asthma without complication Social History [...] 01/05/2025 11:00 AM EDT Office Visit [facility] [address] [place] [address] documented as of this encounter Visit Diagnoses Diagnosis Moderate persistent asthma without complication documented in this encounter Care Teams Emergency Medical Service Manager Relationship Specialty Start Date End Date Patricia Berry MD [address] [place] [phone] PCP - General Family Medicine 05/11/21 Craig Ochoa, ShawnD [address] [place] [phone] Pharmacist Internal Medicine 05/24/23 documented as of this encounter
--- OUTSIDE RECORDS SUMMARY | 2024-12-08 18:34 | XMS_ITS | Encounter Summary ---
Author Organization [employer] Address [address] [facility] 7t [place] [address] Care Team Providers Care Sketch Maker Name Role Phone Patricia Berry MD Primary Care Provider [phone] Craig Ochoa PharmD Unavailable [phone] Reason for Visit * Reason Onset Date Comments Med Refill 10/08/2024 Encounter Details Date Type Department Care Team ([facility] st Contact Info) Description 10/08/2024 Telephone [facility] [address] [place], [place] [phone] Patricia Berry MD [address] [place], [place] [phone] Med Refill Social History Tobacco Use Types [...] the past 12 months, has t he [employer], gas, oil or water company threatened to [...] 50 MG tablet To be sent to: [facility]/pharmacy #[address] [place] [address] documented in this encounter Plan of Treatment Upcoming Encounters Date Type Department Care Team (Late st Contact Info) Description 01/05/2025 11:00 AM EDT Office Visit [facility] [address] [place], [place] [phone] documented as of this encounter Goals Goal [...] documented as of this encounter Care Teams Sketch Maker Relationship Specialty Start Date End Date Patricia Berry MD [address] [place] [address] PCP - General Family Medicine 05/11/21 Craig Ochoa, PharmD [address] [place] [address] Pharmacist Internal Medicine 05/24/23 documented as of this encounter
--- OUTSIDE RECORDS SUMMARY | 2024-12-08 18:34 | XMS_ITS | Encounter Summary ---
Author Organization [employer] Address 75 [facility] 7t [place] [address] Care Team Providers Care Commercial Fishing Vessel Operator Name Role Phone Patricia Berry MD Primary Care Provider [phone] Craig Ochoa PharmD Unavailable [phone] Reason for Visit * Reason Comments Med Refill Encounter Details Date Type Department Care Team (Late st Contact Info) Description 01/14/2023 Refill [facility] [address] [place] [address] Heena Vasquez MD [address] [place] [address] Subacute maxillary sinusitis; Seasonal allergies Social History [...] Description 01/05/2025 11:00 AM EDT Office Visit [facility] [address] [place] [address] documented as of this encounter Visit Diagnoses Diagnosis Subacute maxillary sinusitis Seasonal allergies Allergic rhinitis, cause unspecified documented in this encounter Care Teams Commercial Fishing Vessel Operator Relationship Specialty Start Date End Date Patricia Berry MD [address] [place] [phone] PCP - General Family Medicine 05/11/21 Craig Ochoa, Caroline [address] [place] [phone] Pharmacist Internal Medicine 05/24/23 documented as of this encounter
--- OUTSIDE RECORDS SUMMARY | 2024-12-08 18:34 | XMS_ITS | Encounter Summary ---
Author Organization [employer] Address 75 [facility] 7t [place] [address] Care Team Providers Care Stoner Hand Name Role Phone Patricia Berry MD Primary Care Provider [phone] Craig Ochoa PharmD Unavailable [phone] Reason for Referral * Consultation (Routine) - Closed Specialty Diagnoses / Procedures Referred By Contac t Referred To Contact Bariatrics Diagnoses Class 3 severe obesity due to excess calories with serious comorbidity and body mass index (BMI) of 45.0 to 49.9 in adult KOBY (obstructive sleep apnea) Patricia Berry MD [address] [place] [address] Phone: tel: fax: Breana Nettles MD [address] [place] [address] [address] [place] [address] Phone: tel: fax: Referral ID Status Reason Start Date Expiration Date V isits Requested Visits Authorized [id number] Closed Specialty Services Required 02/27/2024 02/26/2025 1 1 Encounter Details Date Type Department Care Team (Late st Contact Info) Description 02/27/2024 Orders Only [facility] [address] [place], [place] [phone] Patricia Berry MD [address] [place], [place] [phone] Class 3 severe obesity due to excess calories with serious comorbidity and body mass index (BMI) of 45.0 to 49.9 in adult ([facility]) (Primary Dx); KOBY (obstructive sleep apnea) Social [...] Upcoming Encounters Date Type Department Care Team ([facility] st Contact Info) Description 01/05/2025 11:00 AM EDT Office Visit [facility] [address] [place] [address] Scheduled Referrals Name Type Priority Associated Diagnoses Orde r Schedule Referral to Bariatric Surgery Outpatient Referral Routine Class 3 severe obesity due to excess calories with serious comorbidity and body mass index (BMI) of 45.0 to 49.9 in adult ([facility]) KOBY (obstructive sleep apnea) Expected: 02/27/2024 (Approximate), [...] index (BMI) of 45.0 to 49.9 in adult- Primary KOBY (obstructive sleep apnea) Obstructive sleep apnea (adult) (pediatric) documented in this encounter Additional Health Concerns Assessment Noted Time PHQ-9 Depression Total Score: 0 11/27/19 24 10:58 AM EDT documented as of this encounter Care Teams Stoner Hand Relationship Specialty Start Date End Date Patricia Berry MD [address] [place] [address] PCP - General Family Medicine 05/11/21 Craig Ochoa, Caroline [address] [place] [address] Pharmacist Internal Medicine 05/24/23 documented as of this encounter
--- OUTSIDE RECORDS SUMMARY | 2024-12-08 18:34 | XMS_ITS | Encounter Summary ---
Author Organization [employer] Address 75 [facility] 7t [place] [address] Care Team Providers Care Suspect Artist Supervisor Name Role Phone Patricia Berry MD Primary Care Provider [phone] Craig Ochoa PharmD Unavailable [phone] Reason for Visit * Reason Onset Date Comments Med Refill 04/06/2024 Encounter Details Date Type Department Care Team ([facility] st Contact Info) Description 04/06/2024 Telephone [facility] 230 [place], [place] [phone] Patricia Berry MD [address] [place], [place] [phone] Med Refill Social History Tobacco Use Types [...] 50 MG tablet To be sent to: [facility]/pharmacy #[id number] [place] [address] - [address] [place] [address] documented in this encounter Plan of Treatment Upcoming Encounters Date Type Department Care Team ([facility] st Contact Info) Description 01/05/2025 11:00 AM EDT Office Visit [facility] [address] [place] [address] documented as of this encounter Goals Goal [...] documented as of this encounter Care Teams Suspect Artist Supervisor Relationship Specialty Start Date End Date Patricia Berry MD [address] [place] [address] PCP - General Family Medicine 05/11/21 Craig Ochoa, PharmD [address] [place] [address] Pharmacist Internal Medicine 05/24/23 documented as of this encounter
--- OUTSIDE RECORDS SUMMARY | 2024-12-08 18:34 | XMS_ITS | Encounter Summary ---
Author Organization [employer] Address 75 [facility] 7t [place] [address] Care Team Providers Care Service Station Equipment Mechanic Name Role Phone Patricia Berry MD Primary Care Provider [phone] Craig Ochoa PharmD Unavailable [phone] Reason for Referral * Imaging (Routine) - Closed Specialty Diagnoses / Procedures Referred By Contac t Referred To Contact Radiology Diagnoses Transaminitis Procedures US Abdomen Comp w elastography Patricia Berry MD [address] [place] [address] Phone: tel: fax: [address] Phone: tel: fax: Referral ID Status Reason Start Date Expiration Date Visits Re quested Visits Authorized [id number] Closed 06/22/2024 06/22/2025 1 1 Encounter Details Date Type Department Care Team (Late st Contact Info) Description 06/22/2024 Orders Only [facility] [address] [place] [address] [phone] Patricia Berry MD [address] [place] [address] [phone] Transaminitis (Primary Dx) Social History Tobacco Use [...] Description 01/05/2025 11:00 AM EDT Office Visit [facility] [address] [place] [address] Scheduled Orders Name Type Priority Associated Diagnoses [...] Ochoa, ShawnD documented as of this encounter Procedures Procedure [...] Bilirubin, Total 0.3 0.0 - 1.0 mg/dL [facility] Bilirubin, Direct 0.1 0.0 - 0.5 mg/dL [facility] Aspartate Amino Transferase 34 5 - 37 U/L [facility] Alanine Aminotransferase 29 0 - 40 U/L [facility] Total Protein 8.0 6.5 - 8.0 g/dL [facility] Albumin Level 4.0 3.5 - 5.0 g/dL [facility] Alkaline Phosphatase 109 39 - 117 U/L [facility] Blood Venous blood specimen / Unknown 07/02/2024 2:46 PM EST 07/02/2024 2:46 PM EST Patricia Berry MD LAB BLOOD ORDERABLES Final Resul t Performing Organization Address [facility] Co de Phone Number [facility] [address] [place] [phone] * Hepatitis C Antibody with Reflex to HCV, RNA, Quantitative, Real-Time PCR (07/02/2024 2:46 PM EST) Hepatitis C Antibody Nonreactive Nonreactive [facility] Comment:Antibodies to HCV no t detected; does not exclude early acuteHCV infection. Blood Venous blood specimen / Unknown 07/02/2024 2:46 PM EST 07/02/2024 2:46 PM EST Patricia Berry MD LAB BLOOD ORDERABLES Final Resul t Performing Organization Address [facility] Co de Phone Number [facility] [address] [place] [phone] * Hepatitis B Surface Antibody, Qualitative (07/02/2024 2:46 PM EST) ~Hepatitis B Surface Antibody REACTIVE Nonreactive [facility] Comment:REACTIVE: > 11.99 mI U/mL Blood Venous blood specimen / Unknown 07/02/2024 2:46 PM EST 07/02/2024 2:46 PM EST Patricia Berry MD LAB BLOOD ORDERABLES Final Resul t Performing Organization Address [facility] Co de Phone Number [facility] [address] [place] [phone] * Hepatitis B Core Antibody, Total (07/02/2024 2:46 PM EST) Hepatitis B Core Antibody Nonreactive Nonreactive [facility] Blood Venous blood specimen / Unknown 07/02/2024 2:46 PM EST 07/02/2024 2:46 PM EST us Patricia Berry MD LAB BLOOD ORDERABLES Final Resul t Performing Organization Address [facility] Co de Phone Number [facility] [address] [place] [phone] [phone] * Hepatitis A Antibody, Total (07/02/2024 2:46 PM EST) Hepatitis A Antibody IgG Nonreactive Nonreactive [facility] Blood Venous blood specimen / Unknown 07/02/2024 2:46 PM EST 07/02/2024 2:46 PM EST us Patricia Berry MD LAB BLOOD ORDERABLES Final Resul t Performing Organization Address [facility] de Phone Number [facility] [address] [place] [address] [phone] documented in this encounter Visit Diagnoses Diagnosis Transaminitis- Primary Nonspecific elevation of levels of transaminase or lactic acid dehydrogenase (LDH) documented in this encounter Additional Health Concerns Assessment Noted Time PHQ-9 Depression Total Score: 0 11/27/19 24 10:58 AM EDT documented as of this encounter Care Teams Service Station Equipment Mechanic Relationship Specialty Start Date End Date Patricia Berry MD [address] [place] [address] PCP - General Family Medicine 05/11/21 Craig Ochoa, PharmD [address] [place] [address] Pharmacist Internal Medicine 05/24/23 documented as of this encounter
[2024-12-08 18:44] LABS: Erythrocyte Sedimentation Rate 44 MM/HR (0-15)
== END 2024-12-08 16:27 | disposition home or self-care (01) ==
LOC: HO.HHCL 16:26
PROVIDERS: Visit Provider Family Medicine
DX: M79.675 Pain in left toe(s) (principal)
CPT/HCPCS: 36415; 84550; 85025; 85652; 86140

== ENCOUNTER 2025-03-09 15:04 | Outpatient (REF) | payer OTHER, SELFPAY ==
--- OUTSIDE RECORDS SUMMARY | 2025-03-09 15:57 | XMS_ITS | Clinical Summary ---
Author Organization [facility] Address [address] [place] [phone] Phone Care Team Providers Care Project Design Engineer Name Role Phone Patricia Berry MD Primary Care Provider [phone] Social History Tobacco Use Types Packs/Day Years Used Date Smoking Tobacco: Never Smokeless Tobacco: Never Tobacco Cessation:Counseling Given: Not Answered Education Answer Date Recorded Are you interested in more education? Not on carmita e 12/08/2022 Are you concerned about learning? Not on file 12/08/2022 No 12/08/2022 No 12/08/2022 Digital Access Answer Date Recorded No 01/08/2023 No 01/08/2023 Reliable internet access at home? Not on file 01/08/2023 Device with a working camera? Not on file Sex and Gender Information Value Date Recorded Sex Assigned at Not on file Legal Sex Male 1:46 PM EST Gender Identity Not on file Sexual Orientation Not on file Last Filed Vital Signs Vital Sign Reading Time Taken Comments Blood Pressure 131/85 11/07/2022 10:59 AM EDT Pulse 69 11/07/2022 10:59 AM EDT Temperature 36.4 C (97.6 F) 11/07/2022 10:59 AM EDT Respiratory Rate 18 11/07/2022 10:5 9 AM EDT Oxygen Saturation 97% 11/07/2022 10: 59 AM EDT Inhaled Oxygen Concentration - - Weight 152.8 kg (336 lb 12.8 oz) 2022 10:59 AM EDT Height 180.3 cm (5' 11 ) 11/07/2022 10: 59 AM EDT Body Mass Index 46.97 11/07/2022 10:59 AM EDT Plan of Treatment Health Maintenance Due Date Last Done Comments LIPID PANEL 1972 DEPRESSION SCREENING 1984 HEPATITIS C SCREENING 1990 HIV ONE-TIME SCREENING (18-6 5 YEARS) 1990 COLOGUARD 2017 COLONOSCOPY 2017 COLORECTAL CANCER SCREENING 2017 FIT TEST 2017 FOBT 2017 SIGMOIDOSCOPY 2017 VIRTUAL COLONOSCOPY 2017 PNEUMOCOCCAL VACCINES (50+ years) (1 of 1 - PCV) 2022 ZOSTER VACCINES (1 of 2) 2022 COVID-19 VACCINE (1 - 2023-2 5 season) 2024 SCREENING FOR DIABETES 11/07/2025 , 11/07/2022 Adult Td,Tdap Booster 10/03/2028 10/03/2018 , 01/25/2017, 03/17/2010 SMOKING STATUS SCREENING (On ce After 26 Yrs) Completed 11/07/2022 HEPATITIS A VACCINES Aged Out No long er eligible based on patient's age to complete this topic HIB VACCINES Aged Out No longer eligi ble based on patient's age to complete this topic MENINGOCOCCAL VACCINES (ACWY) Aged Out No longer eligible based on patient's age to complete this topic MENINGOCOCCAL VACCINES (B) Aged Out N o longer eligible based on patient's age to complete this topic Medical Devices Not on file Insurance [facility] ONE [employer] MEDICARE REPLACEMENT , [place] [id number] , [place] [id number] CARE MEDICARE REPLACEMENT [facility] ONE C[employer] MEDICARE REPLACEMENT Care Teams Project Design Engineer Relationship Specialty Start Date End Date Patricia Berry MD [address] [place] [phone] PCP - General Family Medicine 08/14/22 Additional Source Comments The information contained in this document represents components of the legal health record. It is not the complete legal health record.[facility]
--- OUTSIDE RECORDS SUMMARY | 2025-03-09 15:57 | XMS_ITS | Encounter Summary ---
Author Organization [employer] Address 75 [facility] 7t [place] [address] Care Team Providers Care Cargo Operations Agent Name Role Phone Patricia Berry MD Primary Care Provider [phone] Craig Ochoa PharmD Unavailable [phone] Encounter Details Date Type Department Care Team (Late st Contact Info) Description 09/06/2022 Orders Only [facility] MED[facility]INE [address] [place], [place] [phone] Jeanine Kearns LPN Social History Tobacco Use [...] as of this encounter Plan of Treatment Not on file documented as of this encounter Visit Diagnoses Not on filedocumented in this encounter Care Teams Cargo Operations Agent Relationship Specialty Start Date End Date Patricia Berry MD [address] [place] [address] PCP - General Family Medicine 05/11/21 Craig Ochoa, PharmD [address] [place], [place] [phone] Pharmacist Internal Medicine 05/24/23 documented as of this encounter
--- OUTSIDE RECORDS SUMMARY | 2025-03-09 15:57 | XMS_ITS | Encounter Summary ---
Author Organization [facility] Address [address] [facility] [address] [place] [address] Encounters * CPT with Jackson Go at [employer] on 2025-02-04 { reasonForRequest : knee pain from surgery\n , patientReports : , denies :[], chiefComplaints : Extremity Pain , pmh : Hypertension, COPD/Asthma, Chronic Pain , allergies : No Known Drug Allerg ies , otherAllergies : , painAssessment : , visi tOutcome : , additionalComments : 54 y.o male complains of Extremity Pain\nPatient had Total knee replacement on 01/13 has run out of pain medication three days ago and states he can hardly move his L knee. Pain 03/21 It is warm and swollen and denies any redness. Deniesany fever or chills and no other complaints. reviewed red flags\nI provided information on the mobile health provider response time and advised the patient and/or caregiver to monitor reported signs and symptoms. I discussed the warning signs of when to seek emergency care. } Dispatched to the call address for the male with knee pain. Pt states he had a knee replacement of the right knee on January 13 of this year. He advises he used all his pain medication and the doctor prescribed more but it cannot be picked up until tomorrow. He is requesting Ketorolac in the interim. He denies chest pain, trouble breathing, n/v/d, fevers or other complaints as well as taking blood thinners, kidney issues, ulcers or recent NSAID use. He advises he has been icing and elevating the knee but there is still swelling. He is going to contact the surgeon tomorrow about the continued swelling. Pt was found sitting in living room chair, CAOx4, airway open and patent, breathing non labored, able to speak in full sentences, -JVD, -HEENT, skin PWD with good turgor, abd soft non tender/distended, mucous membranes pink and moist, pupils PERRL, afebrile, +CMSx4, -edema, +Swelling in right knee,- erythema/warmth: non infected appearing. Knee pain. Pt was assessed. [facility] consulted. Pt given 30mg IM Ketorolac (Left Deltoid) after confirming 5 med rights. Red flags discussed. ALL times are approx. IV_(FLUIDS_AND/OR_MEDICATION), MEDICATION_IM, ORAL_MEDICATION, WOUND_CARE, ORTHOSTATIC_VITAL_SIGNS Written by Jackson Go on 2025-02-04
--- OUTSIDE RECORDS SUMMARY | 2025-03-09 15:57 | XMS_ITS | Data Portability ---
Author Organization [facility], [facility] Address [address] [place] [address] Care Team Providers Care Soda Fountain Manager Name Role Phone HIM [facility] OTHER [facility] Primary Care Provider Assessment Encounter Date Assessment Date Assessment LastModified by Organization Details LastModified Time 01/28/2024 01/28/2024 I have reviewed and agree with the Assessment and Plan as documented by the Partnership Development Manager. I provided real-time medical direction via phone [...] ptimary team [email or web address] Not available 09/22/2024 22:10:03 02/03/2025 02/03/2025 I provided real -time medical direction via phone for this encounter and was available for additional phone-based assistance as needed. I have reviewed and agree with the Assessment and Plan as documented by the Partnership Development Manager. Patient given the opportunity to ask questions. Our service contacted for an assessment of: Right knee pain As per above, patient is status post right TKA approximately a week ago. 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 He has no contraindications. Per collection systems consultant on the scene, Vital signs are stable patient is afebrile. Knee is swollen per collection systems consultant on the scene however no evidence of infection and appears to be healing well. On ASA for DVT prophylaxis and is already weight-bearing as tolerated and ambulating now with 1 crutch Impression: postop pain of right TKA Plan: Toradol 30 mg IM x1. Follow up with Orthopedic surgery tomorrow for prescription for pain medications. Red flags discussed. Allergies: Reviewed PCP f/u: We discussed the diagnostic uncertainty of home visits and the risk associated with this. In this case, the patient and I felt this to be an acceptable and reasonable amount of risk given the benefit of avoiding an ED visit. We discussed the need to seek care urgently/emergentl y in the setting of any new or worsening serious symptoms, particularly fever chills lightheadedness altered mental status [place] [id number] Not available 02/03/2025 20:35:25 Plan of Treatment Reminders Order Date Submit Date Provider Last Modified By Organization Details Last Modified Time Details Appointments None recorded. Lab None recorded. Referral None recorded. Procedures None recorded. Surgeries None recorded. Imaging None recorded. Medication Orders ketorolac 30 mg/mL injection solution 2024 025 [email or web address] [id number], [address] [place], [address], 20:28:13 ketorolac 30 mg/mL injection solution 2024 025 [email or web address] [id number], [address] [place], [address], 22:10:50 ketorolac 60 mg/2 mL intramuscul ar solution 2023 024 [email or web address] [id number], [address] [place], [address], 16:33:14 Patient TargetsNo targets recorded. Patient InstructionsNo instructions recorded. Reason for Referral None Reported. Medical Equipment None Reported. Allergies Allergen ID Allergen Name Allergen Category Reaction Reaction Severity Criticality Documentation Date Start Date Code Code System Note Provider Name and Address Organization Details Recorded Time 636 egg extract food,medi cation Not available Not available Not available 01/30/2022 73368 15 RxNorm Not Available [facility] 5 15:47:23 Medications Name Sig Start Date Stop [...] propionate 50 mcg/actuatio n nasal spray,suspen bradly Eunice 1 spray twice a day by intranasal [...] No t Available Vitals Date Recorded Body weight Respiratory rate Body height Heart rate Body temperature Oxygen saturation Oxygen saturation in Arterial blood by Pulse oximetry Systolic And Diastolic Provider Name and Address Organization Details Last Updated DateTime 5 39529.4 g 14 /min 172.72 cm 68 /min 98 [degF] 98 % 98 % 123/70 mm[Hg] Not Available [facility] 5 19:17:41 Date Recorded Heart rate Respiratory rate Body temperature Oxygen saturation Oxygen saturation in Arterial blood by Pulse oximetry Systolic And Diastolic Provider Name and Address Organization Details Last Updated DateTime 4 62 /min 18 /min 97.1 [degF] 96 % 96 % 132/82 mm[Hg] Not Available [facility] 4 07:01:47 Date Recorded Heart rate Oxygen saturation Oxygen saturation in Arterial blood by Pulse oximetry Body temperature Respiratory rate Systolic And Diastolic Provider Name and Address Organization Details Last Updated DateTime 5 84 /min 98 % 98 % 97.6 [degF] 16 /min 144/78 mm[Hg] Not Available [facility] 5 19:54:55 Date Recorded Heart rate Oxygen saturation Oxygen saturation in Arterial blood by Pulse oximetry Respiratory rate Systolic And Diastolic Provider Name and Address Organization Details Last Updated DateTime 4 78 /min 95 % 95 % 18 /min 152/76 mm[Hg] Not Available [facility] 4 16:26:36 Date Recorded Oxygen saturation Oxygen saturation in Arterial blood by Pulse oximetry Heart rate Respiratory rate Body temperature Systolic And Diastolic Provider Name and Address Organization Details Last Updated DateTime 4 99 % 99 % 88 /min 16 /min 98.1 [degF] 132/86 mm[Hg] Not Available [facility] 4 12:33:11 Social History None recorded. Functional Status None recorded. Mental Status None recorded. Family History Nothing Reported. Medical History No medical history recorded. Past Encounters Encounter ID Performer Location Encounter Start Date Encounter Closed Date Diagnosis/Indication Diagnosis SNOMED-CT Code Diagnosis ICD10 Code Diagnosis Note [id number] Gage Glez MD [facility] [address] [place] [address] [id number] 01/15/2022 19:51:24 05/03/2022 11:29:27 Sciatica 27751210 M54.32 Reports long-stand ing history of sciatica, worsened in the setting of lifting a heavy table. No evidence of cord compromise or neurovascu lar injury. Plan for pain control, PCP follow-up. [id number] Melissa Erwin MD [facility] - [facility] [address] [place] [address] [id number] 01/30/2022 18:39:58 04/20/2022 15:04:08 Chronic low back pain 795838192 M54.50 acute on chronic- gait off due to plantar fasciitis- flaring up back- cannot get appt w/ back specialist til 03/02. Advised to call in the AM to see if can move up. States ice/ heat/ Tylenol and Motrin not helping. Does not tolerate muscle relaxers- make him too drowsy, Got 30 mg Toradol 01/15 from [facility] w/ some relief- given repeat dose [id number] Maame Hodge MD [facility] - [facility] [address] [place] [address] [id number] 0 02/26/2022 19:47:23 05/03/2022 18:33:03 Osteoarthritis of knee 035825195 M17.9 [id number] Jay Jay Hammond MD [facility] - [facility] [address] [place] [address] [id number] 0 03/04/2022 00:31:45 04/19/2022 15:39:58 Pain of left heel 8410243152 330100 M79.672 51yo man presents with pain due [...] [id number] Vincent Quinonez MD [facility] - [facility] [address] [place] [address] [id number] 0 03/10/2022 11:06:47 05/07/2022 12:27:39 Pain of right knee joint 0725633199 69504 M25.561 Will give Toradol 30mg IM. Has close f/u with PCP. [id number] Concha Jacobs MD [facility] - [address] [phone] 12/11/2022 17:48:00 12/13/2022 09:21:21 Maxillary sinus pain [id number] R51.9 Evaluation in the field was performed by my collection systems consultant colleague, as noted above, I provided real-time direction and supervisio n for this visit. 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 [id number] BRAXTON FRANKLIN MD [facility] - [facility] [address] [place] [address] [id number] 0 10/18/2023 19:19:43 10/20/2023 16:24:48 Sciatica 55143661 M54.32 [id number] Niels Healy MD [facility] - [facility] [address] [place] [address] [id number] 0 11/13/2023 15:17:37 11/13/2023 20:03:22 Left side sciatica [id number] 93714 M54.32 This 52-year-ol d male has left leg sciatica that is acting up today. He will be having surgery for this in several weeks. OTC medication s have not been effective. He has responded to Toradol in the past. I ordered Toradol 30 mg IM. He will follow-up with his PCP. The patient agreed with this plan. [id number] Jay Jay Hammond MD [facility] - [facility] [address] [place] [address] [id number] 0 12/31/2023 15:43:52 12/31/2023 17:52:20 Mechanical low back pain 168170106 M54.50 53yo presents with acute on chronic [...] will call surgeon's office if pain persists. [id number] Keenan Booker MD [facility] - [facility] [address] [place] [address] [id number] 0 01/09/2024 19:33:53 01/10/2024 10:26:18 Low back pain [id number] M54.50 [id number] Keenan Booker MD [facility] - [facility] [address] [place] [address] [id number] 0 01/29/2024 07:01:45 01/29/2024 21:26:39 Low back pain [id number] M54.50 [id number] Cindy Peter MD [facility] - [facility] [address] [place] [address] [id number] 0 02/29/2024 16:26:32 03/01/2024 09:26:02 Pain of left knee joint [id number] 35997 M25.562 As noted, we were called to see this patient regarding concerns of knee pain. Evaluation in the field was performed by my collection systems consultant colleague, as noted above, I provided real-time [...] chest pain, dyspnea, changes to urine output. [id number] Gage Glez MD Main - [address] [id number] 0 04/30/2024 12:33:07 04/30/2024 20:44:34 Pain in lower limb 75373311 M79.606 Patient reporting pain in his lower extremity after surgery. On collection systems consultant arrival, patient had just finished up a call with his primary surgical team and was advised that his symptoms were to be expected post-proce durally and he should continue his prescribed pain regimen. We encouraged him to continue to follow-up with his orthopedic team. [id number] [facility] [address] [place] [address] [id number] 0 09/22/2024 19:17:39 09/22/2024 23:01:05 Low back strain [id number] S39.012A [id number] Sherri Saez MD [facility] [address] [id number] 0 02/03/2025 19:53:33 02/03/2025 21:24:39 Pain of right knee joint 0052717757 29563 M25.561 Health Concerns Section Related Observation LastModified by Organization Detai ls LastModified Time None Recorded Concern Status LastModified by Organization Details LastModified Time None Recorded Advance Directives Directive None Recorded Payers Insurance Date Sequence Insurance Name Policy Number Policy Leiva Covered Member ID Leiva Member ID Guarantor Name 09/22/2024 1 [facility] - DOS PRIOR TO 2022 - DUAL ELIGIBLE (MEDICARE REPLACEMENT/ADV ANTAGE - HMO) Brady Dale [id number] Brady Dale 02/03/2025 1 [facility] - DOS ON OR AFTER 2022 - DUAL ELIGIBLE - SNF OPTIONS AND ONE CARE (MEDICARE REPLACEMENT/ADV ANTAGE - HMO) Brady Dale [id number] Brady Dale
[2025-03-09 16:22] LABS: Hematocrit 41.4 % (42.0-52.0); Hemoglobin 13.5 g/dl (14.0-18.0); Mean Corpuscular HGB Conc 32.6 g/dl (31.0-36.0); Mean Corpuscular Hemoglobin 28.2 pg (27.0-33.0); Mean Corpuscular Volume 86.6 fL (80.0-98.0); NRBC Abs Auto 0.000 X10*3/uL (0.0-0.012); NRBC Pct Auto 0.0 /100WBC (0.0-0.2); Platelet Count 340 X10*3/uL (160-400); Red Blood Count 4.78 X10*6/uL (4.60-5.80); White Blood Count 8.9 X10*3/uL (4.8-10.8)
[2025-03-09 16:40] LABS: Hemoglobin A1C 117.9252 umol/L; Total Hemoglobin (HGBA1C) 3487.6085 umol/L
[2025-03-09 17:01] LABS: Alanine Aminotransferase 18 U/L (0-40); Albumin Level 4.3 g/dL (3.5-5.0); Alkaline Phosphatase 113 U/L (39-117); Anion Gap 13 (12-20); Aspartate Amino Transferase 29 U/L (5-37); Blood Urea Nitrogen 13 mg/dL (9-16); Calcium 9.2 mg/dL (8.4-10.2); Carbon Dioxide 28 mmol/L (22-29); Chloride 102 mmol/L (96-108); Cholesterol 229 mg/dL (<200); Estimated Glomerular Filt Rate > 60; HDL Cholesterol 55 mg/dL (>40); Potassium 3.7 mmol/L (3.3-5.1); Prostate Specific Antigen 0.94 ng/mL (<0.05-4.0); Sodium 139 mmol/L (135-145); Total Protein 8.0 g/dL (6.5-8.0); Triglycerides 160 mg/dL (<150)
[2025-03-09 17:31] LABS: Reflex LDLD? No
[2025-03-11 16:54] LABS: Anti Nuclear Antibody Screen NEGATIVE (NEGATIVE)
== END 2025-03-09 15:05 | disposition home or self-care (01) ==
LOC: HO.HHCL 15:04
PROVIDERS: Urology; PCP Family Medicine; Visit Provider Family Medicine
DX: Z13.1 Encounter for screening for diabetes mellitus (principal); E29.1 Testicular hypofunction; I10 Essential (primary) hypertension; M79.10 Myalgia, unspecified site; E03.9 Hypothyroidism, unspecified
CPT/HCPCS: 36415; 80053; 80061; 83036; 84153; 84403; 84443; 85027; 85652; 86038; 86140; 86200; 86431

== ENCOUNTER 2025-03-29 15:47 | Emergency (ER) | payer OTHER, SELFPAY ==
--- NOTE | ~2025-03-29 | XR_ITS ---
CLINICAL HISTORY: constipation, abd pain hx obstructions s p ostomy Abdominal radiographs Comparison: None available Findings: There is a nonobstructive bowel gas pattern. Stool quantity is not increased. No pneumoperitoneum or pneumatosis. No acute osseous or soft tissue abnormality. Impression: No acute findings. No evidence of obstruction or constipation. This document has been electronically signed by: Penny Champion MD on 03/29/2025 18:33:24
--- NOTE | ~2025-03-29 | CT_ITS ---
CLINICAL HISTORY: mult sx, hernia, new pain, eval for obstruction CT abdomen and pelvis with contrast Comparison: CT/REG/SR - CT ABDOMEN PELVIS W IV CON - 07/11/23 02:03 EST Findings: The lung bases are clear. Unremarkable gallbladder and solid organs. No urolithiasis. Distal sigmoid anastomotic sutures are noted. Wide neck ventral abdominal wall hernia results from diastatic rectus abdominis musculature. A left ventral abdominal wall hernia contains nonobstructed loops of small bowel and mesentery. Small fat containing umbilical hernia. No bowel obstruction, pneumoperitoneum or significant intra-abdominal free fluid. Visualized appendix is normal. Small fat containing inguinal hernias are present, [id number]-[id number]-right. No acute fracture. L5-S1 lumbar fusion construct noted. IMPRESSION: 1. Left ventral abdominal wall hernia containing nonobstructed loops of small bowel and mesentery. 2. Wide necked ventral abdominal wall hernia due to diastatic rectus abdominis musculature. This document has been electronically signed by: Flynn Carroll MD, PHD on 03/30/2025 01:17:55
[2025-03-29 16:26] VITALS: BP 142/89; PULSE 85; RESP 18; TEMP 36.4; O2SAT 97; BMI 50.7
--- NOTE | 2025-03-29 16:32 | ED.ABDPAIN ---
HPI - Abdominal Pain General Chief Complaint: Abdominal Pain Stated Complaint: hernia; pain Time Seen by Provider: 03/29/25 21:07 Source: patient Mode of arrival: ambulatory Limitations: no limitations History of Present Illness ED Provider: Dr. Julia Salgado HPI narrative: 54-year-old male with a history of diverticulitis status post multiple abdominal surgeries after complications from perforated diverticulitis requiring colostomy bag which has been reversed since. He has also had mesh placed at the site of the incision due to a large incisional hernia. Patient reports he has been doing fine up until about 3 days ago when he developed some worsening abdominal pain in the left lower quadrant near the incision site. States he ate some mashed potatoes and chicken wings and noted some bloating in his abdomen associated with severe pain. Watkins a hardness at the incision site but was able to reduce it with his hand. Admits that he went to bed and was able to sleep through the night but when he got up the next morning, the pain returned and has been worsening since. Has been having bowel movements that he describes as ?very small?. Describes nausea but no vomiting. Has only tolerated coffee today. Denies associated fever, testicular pain or swelling, dysuria or hematuria. No known sick contacts or recent travel. Related Data Home Medications ?Medication ?Instructions ?Recorded ?Confirmed albuterol sulfate 90 mcg/actuation 2 puff inhalation Q6H PRN 03/26/22 06/19/24 aerosol inhaler (ProAir HFA) Respiratory Distress docusate sodium 100 mg capsule 100 mg PO BID 03/26/22 04/01/24 (Colace) epinephrine 0.3 mg/0.3 mL 0.3 mg IM Q4H PRN Anaphylaxis 03/26/22 06/19/24 injection, auto-injector (EpiPen) escitalopram oxalate 10 mg tablet 10 mg PO DAILY 03/26/22 06/19/24 (Lexapro) fluticasone 500 mcg-salmeterol 50 1 inh inhalation BID 03/26/22 06/19/24 mcg/dose blistr powdr for inhalation (Wixela Inhub) hydrochlorothiazide 25 mg tablet 25 mg PO DAILY 03/26/22 06/19/24 ibuprofen 800 mg tablet 800 mg PO Q6H PRN Pain 03/26/22 06/19/24 loratadine 10 mg tablet (Claritin) 10 mg PO DAILY 03/26/22 04/01/24 montelukast 10 mg tablet 10 mg PO DAILY 03/26/22 06/19/24 (Singulair) omeprazole 20 mg capsule,delayed 20 mg PO DAILY@0630 03/26/22 04/01/24 release tramadol 50 mg tablet 50 mg PO BID PRN Pain, Moderate 03/26/22 04/01/24 ipratropium 0.5 mg-albuterol 3 mg ml inhalation 02/04/23 06/19/24 (2.5 mg base)/3 mL nebulization soln ipratropium bromide 21 mcg (0.03 intranasal 02/04/23 06/19/24 %) nasal spray nebulizers 02/04/23 04/01/24 losartan 25 mg tablet 0 mg PO 03/19/23 06/19/24 sodium chloride 0.65 % nasal spray spray intranasal 03/19/23 04/01/24 aerosol (Saline Nasal) CPAP (CPAP Machine/Device) 03/21/23 04/01/24 fluticasone propionate 50 1 spray intranasal QAM 03/21/23 06/19/24 mcg/actuation nasal spray,suspension Previous Rx's ?Medication ?Instructions ?Recorded allopurinol 100 mg tablet 200 mg (2 x 100 mg) PO DAILY #180 06/05/23 tabs acetaminophen 500 mg tablet 500 mg PO Q6H PRN fever or pain 08/20/23 (Tylenol Extra Strength) #14 tabs albuterol sulfate 90 mcg/actuation 2 puff inhalation QID PRN 06/19/24 aerosol inhaler (Ventolin HFA) shortness of breath or wheezing 30 days #18 grams budesonide-formoterol HFA 160 2 puff inhalation BID 30 days 06/19/24 mcg-4.5 mcg/actuation aerosol #10.2 grams inhaler (Symbicort) ipratropium 0.5 mg-albuterol 3 mg 3 ml inhalation BID 30 days #180 mL 08/11/24 (2.5 mg base)/3 mL nebulization soln cetirizine 10 mg tablet 10 mg PO DAILY 30 days #30 tabs 11/17/24 fluticasone fur. 200 mcg-umeclid 1 inh inhalation DAILY 30 days #60 11/17/24 62.5 mcg-vilant 25 mcg ea inhalat.powder (Trelegy Ellipta) testosterone 50 mg/5 gram (1 %) 50 mg transdermal DAILY 30 days 11/18/24 transdermal gel #150 grams azithromycin 250 mg tablet 250 mg PO 3XW 28 days #12 tabs 03/03/25 dicyclomine 20 mg tablet 20 mg PO TID #10 tabs 03/30/25 Allergies Allergy/AdvReac Type Severity Reaction Status Date / Time No Known Allergies Allergy Verified 03/29/25 16:31 Review of Systems Review of Systems As per HPI, full review of systems performed and negative but for the above mentioned pertinent positives and negatives. 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 SBO (small bowel obstruction) Abdominal pain, LLQ Gout Morbid obesity due to excess calories Obstructive sleep apnea Obesity Open wound anterior abdominal wall Incisional pain Incisional hernia Anxiety Asthma Incisional hernia SBO (small bowel obstruction) Surgical History Hx of carpal tunnel repair Status post Hattie's procedure H/O hernia repair Family History Family History Mother Arthritis Father Arthritis Maternal Grandfather History of prostate cancer Maternal Grandmother History of breast cancer Social History Social History Household Members: Significant Other, Family and Children Housing: Apartment Do you presently have visiting nurse or other home services: No Alcohol intake: never Comment: pt asleep Patient Tobacco Use Status: Former Tobacco user Smoked in Last 30 Days: Yes Second Hand Smoke Exposure: No Use of substances other than those prescribed or required for medical reasons: No Substance Use Type: Marijuana Advance Directives: No Advance Directives Information Provided: No service: No Current occupational status: disabled 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 SKIN: Normal skin color for ethnicity, warm, dry, no rashes noted. HEENT: Normocephalic, atraumatic, no stridor, dry mucous membranes, dentition intact, EOMI, PERRLA. NECK: Soft, supple, full ROM, midline structures nontender, no step-offs, no deformities, no lymphadenopathy. CHEST: Heart regular rhythm, no murmurs, symmetric chest rise and fall. PULMONARY: Clear to auscultation bilaterally, diminished at the bases, no labored breathing, no wheezes/rhales/rhonchi. ABDOMINAL: Softly distended, tenderness to palpation overlying the left lower quadrant where the incision is located, well healed, scar tissue palpable, no masses otherwise, quiet bowel sounds in all quadrants. : Deferred. MUSCULOSKELETAL: Normal tone, full range of motion, no deformities, no peripheral edema. NEURO: Alert and oriented x3, CN II through XII intact, equal strength and sensation bilateral upper and lower extremities, no focal neurologic deficits. PSYCHIATRIC: Flat affect, fluid speech, good eye contact and appropriate demeanor. Vital Signs: Vital Signs - 24 hr 03/29/25 16:26 03/29/25 21:03 03/29/25 23:58 Temperature 97.6 F 97.9 F Pulse Rate 85 50 52 Respiratory Rate 18 18 18 Blood Pressure 142/89 H 118/64 152/97 H Pulse Oximetry 97 97 96 Oxygen Delivery Method Room Air Room Air Room Air 03/30/25 02:00 Temperature 98 F Pulse Rate 78 Respiratory Rate 18 Blood Pressure 138/80 Pulse Oximetry 98 Oxygen Delivery Method Room Air BMI result Body Mass Index 50.7 Course Course Course Narrative: This is a Rapid Medical Examination (RME) performed by Mili Walton PA-C in triage. Full HPI, ROS, assessment and treatment plan per primary provider in the Main ED. Hx: 54 yo M hx of diverticulitis with perforation which required colostomy and reversal after year, hx of multiple hernia surgeries following colostomy reversal and SBOs, here w/ abdominal pain to left lower abdomen, increasing over the last few days. passing mostly flatus, decreased BMs. taking stool softeners at home without relief. Plan: labs, UA, KUB Medical Decision Making Medical Decision Making [facility] Narrative: This patient presents today with a chief complaint of abdominal pain. Differential diagnosis for this patient is broad. It includes hernia, appendicitis, cholecystitis, bowel obstruction, peptic ulcer disease, pyelonephritis, vascular pathology, among many others. A broad-based workup based on history and physical examination was obtained. 10:03 PM 03/29/2025 (Dr. Julia Salgado, D.O.) x-ray does not show evidence of obstruction however, patient's pain is worsening and he is tender on my exam. I will add on a CT to evaluate this further with oral contrast. His blood work is unremarkable, vital signs are stable. Morphine, Zofran for pain and nausea control. I will also give a small fluid bolus given his urine concentration and apparent slight dehydration on exam. 2:58 AM 03/30/2025 (Dr. Julia Salgado, D.O.) CT shows no evidence of obstruction. Patient is tolerating oral intake without issue. Plan for discharge home to follow up with General surgery as an outpatient. Differential Diagnosis Differential Diagnoses: The differential diagnosis associated with the presentation includes (As above) Admission/Observation Consideration of admission/observation: Escalation of care including admission/observation considered Lab Data MDM Lab Attestation statement: I reviewed the patient's lab results. 03/29/25 17:42 03/29/25 17:42 Labs: Lab Results 03/29/25 03/29/25 Range/Units 17:42 18:30 WBC 8.7 (4.8-10.8) X10*3/uL RBC 4.83 (4.60-5.80) X10*6/uL Hgb 13.8 L (14.0-18.0) g/dl Hct 41.8 L (42.0-52.0) % MCV 86.5 (80.0-98.0) fL MCH 28.6 (27.0-33.0) pg MCHC 33.0 (31.0-36.0) g/dl RDW 14.4 (11.0-16.0) % Plt Count 287 (160-400) X10*3/uL MPV 8.7 L (9.4-12.4) fL Immature Gran % (Auto) 0.5 H (0.0-0.4) % Neut % (Auto) 55.9 (45-73) % Lymph % (Auto) 30.9 (20-40) % [place] % (Auto) 9.4 (2-11) % Eos % (Auto) 3.0 (0-4) % Baso % (Auto) 0.3 (0-2) % Lymph # (Auto) 2.7 (1.2-4.9) X10*3/uL [place] # (Auto) 0.8 (0.1-1.2) X10*3/uL Eos # (Auto) 0.3 (0.0-0.4) X10*3/uL Baso # (Auto) 0.0 (0.0-0.2) X10*3/uL Abs Immat Gran (auto) 0.04 H (0.00-0.03) X10*3/uL Absolute Neuts (auto) 4.9 (2.0-8.3) x10*3/uL Absolute Nucleated RBC 0.000 (0.0-0.012) X10*3/uL Nucleated RBC % (auto) 0.0 (0.0-0.2) /100WBC Sodium 141 (135-145) mmol/L Potassium 4.1 (3.3-5.1) mmol/L Chloride 104 (96-108) mmol/L Carbon Dioxide 27 (22-29) mmol/L Anion Gap 14 (12-20) BUN 13 (9-16) mg/dL Creatinine 1.07 (0.5-1.4) mg/dL Estim Creat Clear Calc 116.0 Estimated GFR > 60 Random Glucose 91 (60-115) mg/dL Calcium 9.5 (8.4-10.2) mg/dL Magnesium 1.8 (1.6-2.6) mg/dL Total Bilirubin 0.4 (0.0-1.0) mg/dL AST 34 (5-37) U/L ALT 18 (0-40) U/L Alkaline Phosphatase 105 (39-117) U/L Total Protein 7.8 (6.5-8.0) g/dL Albumin 4.3 (3.5-5.0) g/dL Lipase 40 (8-78) U/L Urine Color Yellow Urine Appearance Clear Urine pH 5.5 (5.0-9.0) Ur Specific [place] >= 1.030 H (1.005-1.025) Urine Protein 100 (2+) H (Neg-Trace) mg/dL Urine Glucose (UA) Negative (Negative) mg/dL Urine Ketones Trace (Negative) mg/dL Urine Blood Negative (Negative) Urine Nitrite Negative (Negative) Ur Leukocyte Esterase Negative (Negative) Urine RBC 0-2 (0-2) /HPF Urine WBC 0-5 (0-5) /HPF Ur Squamous Epith Cells 0-2 (0-2) /HPF Urine Bacteria None Seen (None Seen) Hyaline Casts 3-5 (0-2) /LPF Radiology Impression Discussion of test interpretation with radiology: I have reviewed the radiologist's reading. Radiologist Impression: Abdominal radiographs Comparison: None available Findings: There is a nonobstructive bowel gas pattern. Stool quantity is not increased. No pneumoperitoneum or pneumatosis. No acute osseous or soft tissue abnormality. Impression: No acute findings. No evidence of obstruction or constipation. This document has been electronically signed by: Penny Champion MD on 03/29/2025 18:33:24 CT abdomen and pelvis with contrast Comparison: CT/REG/SR - CT ABDOMEN PELVIS W IV CON - 07/11/23 02:03 EST Findings: The lung bases are clear. Unremarkable gallbladder and solid organs. No urolithiasis. Distal sigmoid anastomotic sutures are noted. Wide neck ventral abdominal wall hernia results from diastatic rectus abdominis musculature. A left ventral abdominal wall hernia contains nonobstructed loops of small bowel and mesentery. Small fat containing umbilical hernia. No bowel obstruction, pneumoperitoneum or significant intra-abdominal free fluid. Visualized appendix is normal. Small fat containing inguinal hernias are present, [id number]-right. No acute fracture. L5-S1 lumbar fusion construct noted. IMPRESSION: 1. Left ventral abdominal wall hernia containing nonobstructed loops of small bowel and mesentery. 2. Wide necked ventral abdominal wall hernia due to diastatic rectus abdominis musculature. This document has been electronically signed by: Flynn Carroll MD, PHD on 03/30/2025 01:17:55 External Record Review External record reviewed: Prior outpatient radiology Chronic Conditions Patient?s care impacted by: Hypertension and Other (Diverticulitis) Medications Administered Discontinued Medications Generic Name Dose Route Start Last Admin Trade Name Freq PRN Reason Stop Dose Admin Diatrizoate Meglum/Diatrizoate Sod 30 ml 03/30/25 00:25 03/30/25 00:26 Diatrizoate Meglumine, Sodium 30 Ml Solution PO 03/30/25 00:26 30 ml ONCE ONE Administration Lactated Ringer's 1,000 mls @ 999 mls/hr 03/29/25 21:55 03/30/25 02:34 Lr IV 03/29/25 22:55 Infused .Q1H1M ONE Infusion Iohexol 100 ml 03/30/25 00:25 03/30/25 00:25 Iohexol 350 Mg/Ml 100 Ml Infus..Btl IV 03/30/25 00:26 100 ml ONCE ONE Administration Morphine Sulfate 4 mg 03/29/25 21:55 03/29/25 22:22 Morphine Sulfate 4 Mg/Ml Cartridge IVPUSH 03/29/25 21:56 4 mg ONCE ONE Administration Protocol Morphine Sulfate 4 mg 03/29/25 23:50 03/29/25 23:57 Morphine Sulfate 4 Mg/Ml Cartridge IVPUSH 03/29/25 23:51 4 mg ONCE ONE Administration Protocol Ondansetron HCl 4 mg 03/29/25 21:55 03/29/25 22:22 Ondansetron Hcl 4 Mg/2 Ml Vial IVPUSH 03/29/25 21:56 4 mg ONCE ONE Administration Discharge Plan Discharge Clinical Impression: Incisional hernia, Ventral hernia Patient Disposition: Home, Self-Care Additional Instructions: You may try taking dicyclomine for abdominal cramping. Otherwise try to force your fluids over the next several days. Drink plenty of water and rest as much as possible. Try using your abdominal binder to help with your hernia. It may help the pain. Follow-up with your surgeon as soon as possible, Dr. Nowak. Return to the emergency department with any new or worsening symptoms including: Worsening abdominal pain, fevers greater than 100?, vomiting, any new symptom that concerns you. Call 911 with any medical emergency. Prescriptions: New dicyclomine 20 mg tablet 20 mg PO TID Qty: 10 0RF No Action allopurinol 100 mg tablet 200 mg PO DAILY Qty: 180 0RF ipratropium-albuterol 0.5 mg-3 mg(2.5 mg base)/3 mL solution for nebulization 3 ml inhalation BID 30 Days Qty: 180 11RF testosterone 50 mg/5 gram (1 %) gel 50 mg transdermal DAILY 30 Days Qty: 150 3RF Rx Instructions: apply 1 packet daily azithromycin 250 mg tablet 250 mg PO 3XW 28 Days Qty: 12 2RF Rx Instructions: Take 1 tablet on Saturday/Saturday/Saturday acetaminophen [Tylenol Extra Strength] 500 mg tablet 500 mg PO Q6H PRN (Reason: fever or pain) Qty: 14 0RF albuterol sulfate [ProAir HFA] 90 mcg/actuation HFA aerosol inhaler 2 puff inhalation Q6H PRN (Reason: Respiratory Distress) hydrochlorothiazide 25 mg tablet 25 mg PO DAILY docusate sodium [Colace] 100 mg capsule 100 mg PO BID loratadine [Claritin] 10 mg tablet 10 mg PO DAILY montelukast [Singulair] 10 mg tablet 10 mg PO DAILY escitalopram oxalate [Lexapro] 10 mg tablet 10 mg PO DAILY omeprazole 20 mg capsule,delayed release(DR/EC) 20 mg PO DAILY@0630 fluticasone propion-salmeterol [Wixela Inhub] 500-50 mcg/dose blister with device 1 inh inhalation BID epinephrine [EpiPen] 0.3 mg/0.3 mL auto-injector 0.3 mg IM Q4H PRN (Reason: Anaphylaxis) ibuprofen 800 mg tablet 800 mg PO Q6H PRN (Reason: Pain) Rx Instructions: administer with food tramadol 50 mg tablet 50 mg PO BID PRN (Reason: Pain, Moderate) losartan 25 mg tablet 0 mg PO Saline Nasal 0.65 % aerosol,spray intranasal ipratropium-albuterol 0.5 mg-3 mg(2.5 mg base)/3 mL solution for nebulization 3 ml inhalation ONCE Qty: 3 0RF ipratropium bromide 21 mcg (0.03 %) spray,non-aerosol intranasal ipratropium-albuterol 0.5 mg-3 mg(2.5 mg base)/3 mL solution for nebulization inhalation (DME) nebulizers [facility] [place] See Rx Instructions .Route Rx Instructions: As directed fluticasone propionate 50 mcg/actuation spray,suspension 1 spray intranasal QAM (DME) CPAP Machine/Device Device See Rx Instructions .Route Rx Instructions: As directed budesonide-formoterol [Symbicort] 160-4.5 mcg/actuation HFA aerosol inhaler 2 puff inhalation BID 30 Days Qty: 10.2 11RF albuterol sulfate [Ventolin HFA] 90 mcg/actuation HFA aerosol inhaler 2 puff inhalation QID PRN (Reason: shortness of breath or wheezing) 30 Days Qty: 18 11RF Trelegy Ellipta 200-62.5-25 mcg blister with device 1 inh inhalation DAILY 30 Days Qty: 60 12RF cetirizine 10 mg tablet 10 mg PO DAILY 30 Days Qty: 30 7RF Referrals: Benson Nowak MD [Physician, General Surgery] Clinical Impression: Incisional hernia Print Language: Maltese
--- OUTSIDE RECORDS SUMMARY | 2025-03-29 17:42 | XMS_ITS | Clinical Summary ---
Author Organization [facility] Address [address] [place] [phone] Phone Care Team Providers Care Bank Note Designer Name Role Phone Patricia Berry MD Primary Care Provider [phone] Social History Tobacco Use Types Packs/Day Years [...] topic Medical Devices Not on file Insurance [facility] ONE [employer] MEDICARE REPLACEMENT , [place] [id number] [place] [id number] CARE MEDICARE REPLACEMENT [facility] ONE CARE MEDICARE REPLACEMENT Care Teams Bank Note Designer Relationship Specialty Start Date End Date Patricia Berry MD [address] [place] [id number] PCP - General Family Medicine 08/14/22 Additional Source Comments The information contained in this document represents components of the legal health record. It is not the complete legal health record.[facility]
--- OUTSIDE RECORDS SUMMARY | 2025-03-29 17:42 | XMS_ITS | Encounter Summary ---
Author Organization [facility] Address [address] [place] [address] Care Team Providers Care Brass Bobbin Winder Name Role Phone Patricia Berry MD Primary Care Provider [phone] Craig Ochoa PharmD Unavailable [phone] Encounter Details Date Type Department Care Team (Late st Contact Info) Description 09/06/2022 Orders Only [facility] MEDICINE [address], [place] [phone] Jeanine Kearns LPN Social History Tobacco Use [...] on filedocumented in this encounter Care Teams Brass Bobbin Winder Relationship Specialty Start Date End Date Patricia Berry MD [address] [place] [address] PCP - General Family Medicine 05/11/21 Craig Ochoa, PharmD [address], [place] [phone] Pharmacist Internal Medicine 05/24/23 documented as of this encounter
[2025-03-29 17:47] LABS: MANUAL DIFF FLAG NO
[2025-03-29 17:48] LABS: Hematocrit 41.8 % (42.0-52.0); Hemoglobin 13.8 g/dl (14.0-18.0); Imm Gran Abs Auto 0.04 X10*3/uL (0.00-0.03); Imm Gran Pct Auto 0.5 % (0.0-0.4); Lymphocytes Absolute Auto 2.7 X10*3/uL (1.2-4.9); Mean Corpuscular HGB Conc 33.0 g/dl (31.0-36.0); Mean Corpuscular Hemoglobin 28.6 pg (27.0-33.0); Mean Corpuscular Volume 86.5 fL (80.0-98.0); NRBC Abs Auto 0.000 X10*3/uL (0.0-0.012); NRBC Pct Auto 0.0 /100WBC (0.0-0.2); Platelet Count 287 X10*3/uL (160-400); Red Blood Count 4.83 X10*6/uL (4.60-5.80); White Blood Count 8.7 X10*3/uL (4.8-10.8)
[2025-03-29 18:03] LABS: Alanine Aminotransferase 18 U/L (0-40); Albumin Level 4.3 g/dL (3.5-5.0); Alkaline Phosphatase 105 U/L (39-117); Anion Gap 14 (12-20); Aspartate Amino Transferase 34 U/L (5-37); Blood Urea Nitrogen 13 mg/dL (9-16); Calcium 9.5 mg/dL (8.4-10.2); Carbon Dioxide 27 mmol/L (22-29); Chloride 104 mmol/L (96-108); Creatinine Clr Calc Pharmacy 116.0; Estimated Glomerular Filt Rate > 60; Lipase 40 U/L (8-78); Magnesium 1.8 mg/dL (1.6-2.6); Potassium 4.1 mmol/L (3.3-5.1); Sodium 141 mmol/L (135-145); Total Protein 7.8 g/dL (6.5-8.0)
[2025-03-29 18:39] LABS: Appearance Urine Clear; Glucose Urine UA Negative (Negative); PH 5.5 (5.0-9.0); Specific Gravity - Urine >= 1.030 (1.005-1.025); UMIC TRIGGER UACC YES
[2025-03-29 21:03] VITALS: BP 118/64; PULSE 50; RESP 18; O2SAT 97
[2025-03-29] MEDS: Lactated Ringers 1,000 ML 999 ML IV (22:16)
--- NOTE | 2025-03-29 23:51 | PC.NURSE ---
pt reports pain returning, provider advised, awaiting new orders. Pt awaiting Ct scan
[2025-03-29 23:58] VITALS: BP 152/97; PULSE 52; RESP 18; TEMP 36.6; O2SAT 96
[2025-03-30] MEDS: iohexoL 350 MG/ML 100 ML INFUS..BTL IV (00:25)
--- NOTE | 2025-03-30 01:24 | PC.NURSE ---
luids continue to infuse, pt advised to try and keep arm straight to ensure timely infusion of fluids. pt agrees.
[2025-03-30 02:00] VITALS: BP 138/80; PULSE 78; RESP 18; TEMP 36.6; O2SAT 98
[2025-03-30 03:13] VITALS: BP 138/80; PULSE 78; RESP 18; TEMP 36.6; O2SAT 98
== END 2025-03-30 03:15 | disposition home or self-care (01) ==
PROVIDERS: Physician Assistant Medical; Emergency Provider Emergency Medicine
DX: R10.9 Unspecified abdominal pain (principal); K43.2 Incisional hernia without obstruction or gangrene; K43.9 Ventral hernia without obstruction or gangrene
CPT/HCPCS: 36415; 74018; 74177; 80053; 81001; 83690; 83735; 85025; 96361; 96374; 96375; 96376; 99284; J2270; J2405; J7120; Q9967

== ENCOUNTER → 2025-03-29 16:30 | Outpatient (BNV) | payer OTHER, SELFPAY | PROVIDERS: Visit Provider Radiology Diagnostic Radiology | DX: K59.00 Constipation, unspecified (principal) | CPT/HCPCS: 74018 ==

== ENCOUNTER → 2025-03-30 00:20 | Outpatient (BNV) | payer OTHER, SELFPAY | PROVIDERS: Emergency Provider Emergency Medicine; Visit Provider General Practice | DX: K43.9 Ventral hernia without obstruction or gangrene (principal) | CPT/HCPCS: 74177 ==

== ENCOUNTER 2025-07-19 21:24 | Emergency (ER) | payer OTHER, SELFPAY ==
--- NOTE | ~2025-07-19 | XR_ITS ---
CLINICAL HISTORY: fall, pain Right knee two views Comparison: None provided Findings: No acute fracture or dislocation. No significant joint effusion. Knee prosthesis with normal alignment. There is no component loosening. Impression: No acute bony abnormality This document has been electronically signed by: Rony Valdez MD on 07/20/2025 00:51:17
[2025-07-19 21:27] VITALS: BP 126/83; PULSE 72; RESP 20; TEMP 36.4; O2SAT 96; BMI 48.5
--- NOTE | 2025-07-19 23:31 | ED.FALL ---
HPI - Fall General Chief Complaint: Fall Stated Complaint: Injury Time Seen by Provider: 07/19/25 22:30 Source: patient Mode of arrival: ambulatory Limitations: no limitations History of Present Illness ED Provider: Odilon LOWE HPI Narrative: The patient is a 54-year-old male presenting to the ED for evaluation after he suffered a mechanical trip and fall on uneven ground on Saturday. The patient reports he stepped into an uneven patch of ground with his left foot causing him to fall forward onto his right knee and then forward onto his chest. The patient denies head strike or LOC, was able to get himself up under his own power after a short period of time. The patient reports he did not come to the ED at that time as he was having no complaints, however over the past few days he has been experiencing worsening right knee swelling and pain, however reports he is still able to bear weight and ambulate with a steady gait. The patient reports he has also been experiencing some pain in his bilateral elbows, bilateral forearms, and right hand however denies any bony tenderness, impaired or painful range of motion, or swelling in these areas. The patient reports he has been taking ibuprofen, Tylenol, Ultram, and Flexeril, the last 2 he is prescribed chronically by his PCP for chronic low back pain. Patient is status post lumbar fusion 2 years ago, as well as right knee replacement last year, and left knee replacement 2 years ago. Related Data Home Medications ?Medication ?Instructions ?Recorded ?Confirmed albuterol sulfate 90 mcg/actuation 2 puff inhalation Q6H PRN 03/26/22 06/19/24 aerosol inhaler (ProAir HFA) Respiratory Distress docusate sodium 100 mg capsule 100 mg PO BID 03/26/22 04/01/24 (Colace) epinephrine 0.3 mg/0.3 mL 0.3 mg IM Q4H PRN Anaphylaxis 03/26/22 06/19/24 injection, auto-injector (EpiPen) escitalopram oxalate 10 mg tablet 10 mg PO DAILY 03/26/22 06/19/24 (Lexapro) fluticasone 500 mcg-salmeterol 50 1 inh inhalation BID 03/26/22 06/19/24 mcg/dose blistr powdr for inhalation (Wixela Inhub) hydrochlorothiazide 25 mg tablet 25 mg PO DAILY 03/26/22 06/19/24 ibuprofen 800 mg tablet 800 mg PO Q6H PRN Pain 03/26/22 06/19/24 loratadine 10 mg tablet (Claritin) 10 mg PO DAILY 03/26/22 04/01/24 montelukast 10 mg tablet 10 mg PO DAILY 03/26/22 06/19/24 (Singulair) omeprazole 20 mg capsule,delayed 20 mg PO DAILY@0630 03/26/22 04/01/24 release tramadol 50 mg tablet 50 mg PO BID PRN Pain, Moderate 03/26/22 04/01/24 ipratropium 0.5 mg-albuterol 3 mg ml inhalation 02/04/23 06/19/24 (2.5 mg base)/3 mL nebulization soln ipratropium bromide 21 mcg (0.03 intranasal 02/04/23 06/19/24 %) nasal spray nebulizers 02/04/23 04/01/24 losartan 25 mg tablet 0 mg PO 03/19/23 06/19/24 sodium chloride 0.65 % nasal spray spray intranasal 03/19/23 04/01/24 aerosol (Saline Nasal) CPAP (CPAP Machine/Device) 03/21/23 04/01/24 fluticasone propionate 50 1 spray intranasal QAM 03/21/23 06/19/24 mcg/actuation nasal spray,suspension Previous Rx's ?Medication ?Instructions ?Recorded allopurinol 100 mg tablet 200 mg (2 x 100 mg) PO DAILY #180 06/05/23 tabs acetaminophen 500 mg tablet 500 mg PO Q6H PRN fever or pain 08/20/23 (Tylenol Extra Strength) #14 tabs budesonide-formoterol HFA 160 2 puff inhalation BID 30 days 06/19/24 mcg-4.5 mcg/actuation aerosol #10.2 grams inhaler (Symbicort) ipratropium 0.5 mg-albuterol 3 mg 3 ml inhalation BID 30 days #180 mL 08/11/24 (2.5 mg base)/3 mL nebulization soln fluticasone fur. 200 mcg-umeclid 1 inh inhalation DAILY 30 days #60 11/17/24 62.5 mcg-vilant 25 mcg ea inhalat.powder (Trelegy Ellipta) testosterone 50 mg/5 gram (1 %) 50 mg transdermal DAILY 30 days 11/18/24 transdermal gel #150 grams azithromycin 250 mg tablet 250 mg PO 3XW 28 days #12 tabs 03/03/25 dicyclomine 20 mg tablet 20 mg PO TID #10 tabs 03/30/25 cetirizine 10 mg tablet 10 mg PO DAILY #90 tabs 04/30/25 albuterol sulfate 90 mcg/actuation 2 puff inhalation QID PRN 05/01/25 aerosol inhaler (Ventolin HFA) shortness of breath or wheezing 30 days #18 grams Allergies Allergy/AdvReac Type Severity Reaction Status Date / Time No Known Allergies Allergy Verified 07/19/25 21:31 Review of Systems Review of Systems: Yes all other systems are reviewed and are negative [facility] Past Medical History Medical History Bleeding hemorrhoids 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 SBO (small bowel obstruction) Abdominal pain, LLQ Gout Morbid obesity due to excess calories Obstructive sleep apnea Obesity Open wound anterior abdominal wall Incisional pain Incisional hernia Anxiety Asthma Incisional hernia SBO (small bowel obstruction) Surgical History Hx of carpal tunnel repair Status post Hattie's procedure H/O hernia repair Family History Family History Mother Arthritis Father Arthritis Maternal Grandfather History of prostate cancer Maternal Grandmother History of breast cancer Social History Social History Household Members: Significant Other, Family and Children Housing: Apartment Do you presently have visiting nurse or other home services: No Alcohol intake: never Comment: pt asleep Patient Tobacco Use Status: Former Tobacco user Second Hand Smoke Exposure: No Substance Use Type: Marijuana service: No Current occupational status: disabled 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 Vital signs as documented. HEAD: Atraumatic, normocephalic. EYES: EOMs grossly intact, pupils equal, conjunctiva clear, no exudate. ENT: Nares patent, no discharge. Airway patent, no audible stridor, visible mucosa is pink and moist without noted lesions. NECK: trachea is midline, no obvious masses or gross abnormalities. CHEST: Symmetric movement, normal appearance. LUNGS: Non-labored work of breathing. CARDIAC: No evidence of hypoperfusion. ABDOMEN: Nondistended, no obvious injury. : Deferred. EXTREMITIES: Right knee demonstrates mild swelling compared to the left, no ligament laxity, meniscal pain with the manipulation, or bony tenderness. No overlying erythema or warmth. Distal CSM intact, 2+ DP/PT pulses. Moves all other extremities spontaneously without reported pain. No other obvious injury or deformity noted. NEURO: Alert and oriented x3, CN II-XII appear grossly intact. Cerebellar Functioning grossly intact. Speech clear and appropriate. SKIN: Warm, dry, color appropriate. No rashes or lesions noted. Medical Decision Making Medical Decision Making MDM Narrative: 12:17 AM 07/20/2025 (Mili LOWE): The patient is a 54-year-old male presenting to the ED for evaluation after he suffered a mechanical trip and fall on uneven ground on Saturday. The patient reports he stepped into an uneven patch of ground with his left foot causing him to fall forward onto his right knee and then forward onto his chest. The patient denies head strike or LOC, was able to get himself up under his own power after a short period of time. The patient reports he did not come to the ED at that time as he was having no complaints, however over the past few days he has been experiencing worsening right knee swelling and pain, however reports he is still able to bear weight and ambulate with a steady gait. The patient reports he has also been experiencing some pain in his bilateral elbows, bilateral forearms, and right hand however denies any bony tenderness, impaired or painful range of motion, or swelling in these areas. The patient reports he has been taking ibuprofen, Tylenol, Ultram, and Flexeril, the last 2 he is prescribed chronically by his PCP for chronic low back pain. Patient is status post lumbar fusion 2 years ago, as well as right knee replacement last year, and left knee replacement 2 years ago. In the ED the patient appears in no acute distress, right knee exam demonstrates mild swelling compared to the left, no ligament laxity, no meniscal pain with manipulation, distal CSM intact, 2+ DP/PT pulses. The patient's bilateral forearms show no bony tenderness, no impaired range of motion, and no pain with resistance against wrist movements or elbow movements. There is no swelling of the bilateral upper extremities. Patient also reports some low back pain which is similar to his chronic pain, exam reveals no step-off or crepitus. The patient's pain is diffuse across the low back, not isolated to the midline. Patient is able to rise from a seated to a standing position without evidence of discomfort. At this time patient's presentation is consistent with multiple contusions and strains, however the patient's right knee exam does demonstrate swelling, we will obtain right knee x-ray to ensure no loosening of hardware. Pending unremarkable radiology workup, patient will be discharged to continue his current pain management regimen and follow up with PCP. Admission/Observation Consideration of admission/observation: Escalation of care including admission/observation considered Radiology Impression Discussion of test interpretation with radiology: I have reviewed the radiologist's reading. External Record Review External record reviewed: Outpatient record Prescription Management I considered prescription management with: Pain Medication Discharge Plan Discharge Clinical Impression: Swelling of right knee Fall Qualifiers: Encounter type: initial encounter Qualified Code(s): W19.XXXA - Unspecified fall, initial encounter Patient Disposition: Home, Self-Care Instructions: Swollen Knee Joint (ED) Additional Instructions: Thank you for choosing [facility]'s Emergency Department for your care today. Thankfully your x-ray today shows no evidence of an acute fracture, loosening of your existing hardware, or other emergent process. At this time there is no indication for admission to the hospital or continued ED observation, and it is safe to discharge you home. Your symptoms may be due to contusions and strains secondary to your fall on Saturday. Please continue taking your pain management medications as prescribed by your primary care provider. You should also rest, and apply ice to the knee for 20 minutes every hour. Please follow up with your orthopedist and primary care physician for re-evaluation, additional management of your symptoms, and continued preventative care. If you do not have a primary care physician, please call the [facility] at [phone] to establish a new primary care physician. While waiting to establish your new primary care physician, you can call our [facility] at [phone] for non-emergency needs. Please return to the emergency department if you develop a severe or sudden change in your symptoms, a fever over 100.4 that does not improve with Tylenol or Ibuprofen, recurrent vomiting, or any other new or worsening symptoms or concerns. Prescriptions: No Action allopurinol 100 mg tablet 200 mg PO DAILY Qty: 180 0RF ipratropium-albuterol 0.5 mg-3 mg(2.5 mg base)/3 mL solution for nebulization 3 ml inhalation BID 30 Days Qty: 180 11RF testosterone 50 mg/5 gram (1 %) gel 50 mg transdermal DAILY 30 Days Qty: 150 3RF Rx Instructions: apply 1 packet daily azithromycin 250 mg tablet 250 mg PO 3XW 28 Days Qty: 12 2RF Rx Instructions: Take 1 tablet on Saturday/Saturday/Saturday cetirizine 10 mg tablet 10 mg PO DAILY Qty: 90 2RF albuterol sulfate [Ventolin HFA] 90 mcg/actuation HFA aerosol inhaler 2 puff inhalation QID PRN (Reason: shortness of breath or wheezing) 30 Days Qty: 18 11RF dicyclomine 20 mg tablet 20 mg PO TID Qty: 10 0RF acetaminophen [Tylenol Extra Strength] 500 mg tablet 500 mg PO Q6H PRN (Reason: fever or pain) Qty: 14 0RF albuterol sulfate [ProAir HFA] 90 mcg/actuation HFA aerosol inhaler 2 puff inhalation Q6H PRN (Reason: Respiratory Distress) hydrochlorothiazide 25 mg tablet 25 mg PO DAILY docusate sodium [Colace] 100 mg capsule 100 mg PO BID loratadine [Claritin] 10 mg tablet 10 mg PO DAILY montelukast [Singulair] 10 mg tablet 10 mg PO DAILY escitalopram oxalate [Lexapro] 10 mg tablet 10 mg PO DAILY omeprazole 20 mg capsule,delayed release(DR/EC) 20 mg PO DAILY@0630 fluticasone propion-salmeterol [Wixela Inhub] 500-50 mcg/dose blister with device 1 inh inhalation BID epinephrine [EpiPen] 0.3 mg/0.3 mL auto-injector 0.3 mg IM Q4H PRN (Reason: Anaphylaxis) ibuprofen 800 mg tablet 800 mg PO Q6H PRN (Reason: Pain) Rx Instructions: administer with food tramadol 50 mg tablet 50 mg PO BID PRN (Reason: Pain, Moderate) losartan 25 mg tablet 0 mg PO Saline Nasal 0.65 % aerosol,spray intranasal ipratropium-albuterol 0.5 mg-3 mg(2.5 mg base)/3 mL solution for nebulization 3 ml inhalation ONCE Qty: 3 0RF ipratropium bromide 21 mcg (0.03 %) spray,non-aerosol intranasal ipratropium-albuterol 0.5 mg-3 mg(2.5 mg base)/3 mL solution for nebulization inhalation (DME) [place] [facility] [place]ructions .Route Rx Instructions: As directed fluticasone propionate 50 mcg/actuation spray,suspension 1 spray intranasal QAM (DME) CPAP Machine/Device Device See Rx Instructions .Route Rx Instructions: As directed budesonide-formoterol [Symbicort] 160-4.5 mcg/actuation HFA aerosol inhaler 2 puff inhalation BID 30 Days Qty: 10.2 11RF Trelegy Ellipta 200-62.5-25 mcg blister with device 1 inh inhalation DAILY 30 Days Qty: 60 12RF Referrals: Patricia Berry MD [Primary Care Provider, Internal Medicine] Clinical Impression: Swelling of right knee; Fall Interventions: ED Discharge Assessment Last Done: 07/20/25 01:09 Discharge Date/Time: 07/20/25 01:09 Print Language: Bulgarian
[2025-07-20 01:09] VITALS: BP 126/83; PULSE 72; RESP 20; TEMP 36.4; O2SAT 96
--- OUTSIDE RECORDS SUMMARY | 2025-07-20 02:34 | XMS_ITS | Encounter Summary ---
Author Organization [employer] Address [address] [facility] [address] [place] [address] Care Team Providers Care Timing Adjuster Name Role Phone Patricia Berry MD Primary Care Provider [phone] Craig Ochoa PharmD Unavailable Reason for Visit * Reason Onset Date Comments Med Refill 10/08/2023 Encounter Details Date Type Department Care Team (Late st Contact Info) Description 10/08/2023 Telephone [facility] [address] [place], [place] [phone] Patricia Berry MD [address] [place], [place] [phone] Med Refill Social History Tobacco Use Types [...] 50 MG tablet To be sent to: [facility]/pharmacy #[id number] [place] [address] - [address] [place] [address] documented in this encounter Plan of Treatment Upcoming Encounters Date Type Department Care Team (Late st Contact Info) Description 09/06/2025 3:45 PM EST Office Visit [facility] [address] [place] [address] Patricia Berry MD [address] [place] [address] 10/11/2025 2:30 PM EST Clinical Support [facility] [address] [place] [address] Renee Vazquez, RN [address] [place] [address] documented as of this encounter Goals Goal Patient Goal Type Associated Problems Recent Progress Patient-Stated? Author Blood Pressure < 140/90 Blood Pressure 110/72( 025 2:15 PM EDT) No Craig Ochoa, PharmD documented as of this encounter Visit Diagnoses Not on filedocumented in this encounter Care Teams Timing Adjuster Relationship Specialty Start Date End Date Patricia Berry MD [address] [place] [address] PCP - General Family Medicine 05/11/21 Craig Ochoa, ShawnD [address] [place] [phone] Pharmacist Internal Medicine 05/24/23 documented as of this encounter
--- OUTSIDE RECORDS SUMMARY | 2025-07-20 02:34 | XMS_ITS | Encounter Summary ---
Author Organization [employer] Address [address] [facility] [address] [place] [address] Care Team Providers Care Staff Engineer Name Role Phone Patricia Berry MD Primary Care Provider [phone] Craig Ochoa PharmD Unavailable [phone] Reason for Visit * Reason Onset Date Comments Appointment Request 10/12/2022 Encounter Details Date Type Department Care Team (Late st Contact Info) Description 10/12/[address] 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 Pt was confused on the times. Please contact pt at [phone] documented in this encounter Plan of Treatment Upcoming Encounters Date Type Department Care Team (Late st Contact Info) Description 09/06/2025 3:45 PM EST Office Visit [facility] [address] [place] [address] Patricia Berry MD [address] [place], [place] 10/11/2025 2:30 PM EST Clinical Support [facility] [address] [place], [place] [phone] Renee Vazquez, LELE [address] [place], [place] documented as of this encounter Visit Diagnoses Diagnosis Chronic pain syndrome documented in this encounter Care Teams Staff Engineer Relationship Specialty Start Date End Date Patricia Berry MD [address] [place] [phone] PCP - General Family Medicine 05/11/21 Craig Ochoa, ShawnD [address] [place] [phone] Pharmacist Internal Medicine 05/24/23 documented as of this encounter
--- OUTSIDE RECORDS SUMMARY | 2025-07-20 02:34 | XMS_ITS | Encounter Summary ---
Author Organization [employer] Address [address] [facility] [address] [place] [address] Care Team Providers Care University Demonstrator Name Role Phone Patricia Berry MD Primary Care Provider [phone] Craig Ochoa PharmD Unavailable [phone] Reason for Visit * Reason Comments Med Refill Encounter Details Date Type Department Care Team (Late st Contact Info) Description 09/17/2022 Refill [facility] [address] [place] [phone] Patricia Berry MD [address] [place], [place] [phone] Moderate persistent asthma without complication Social History [...] Description 09/06/2025 3:45 PM EST Office Visit [facility] [address] [place] [phone] Patricia Berry MD [address] [place] [phone] 10/11/2025 2:30 PM EST Clinical Support [facility] [address] [place] [address] Renee Vazquez, RN [address] [place] [address] documented as of this encounter Visit Diagnoses Diagnosis Moderate persistent asthma without complication documented in this encounter Care Teams University Demonstrator Relationship Specialty Start Date End Date Patricia Berry MD [address] [place] [phone] PCP - General Family Medicine 05/11/21 Craig Ochoa, ShawnD [address] [place] [phone] Pharmacist Internal Medicine 05/24/23 documented as of this encounter
--- OUTSIDE RECORDS SUMMARY | 2025-07-20 02:34 | XMS_ITS | Clinical Summary ---
Author Organization [employer] Address [address] [place] [address] [address] [place] [address] Care Team Providers Care Glue Reel Operator Name Role Phone Patricia Berry MD Primary Care Provider [phone] Craig Ochoa PharmD Unavailable [phone] Allergies Active Allergy Reactions Criticality Noted Date Comments Egg Protein (Egg White) 07/14/2021 Mouth Sores, Rash (but as of [...] A INTRAMUSCULAR ONCE NEEDED FOR ANAPHYLAXIS Active polyethylene glycol, PEG, 3350 ([facility]S Purelax) [...] EVERY DAY FOR SEXUAL ACTIVITY 023 Active Blood Pressure Monitor kitIndications: Primary [...] by mouth Once per day. 024 Active ipratropium (Atrovent) 0.03 % nasal sprayIndication s:Seasonal allergies SPRAY 2 SPRAYS INTO EACH NOSTRIL EVERY DAY IF NEEDED FOR CONGESTION 90 mL 1 024 Active escitalopram (Lexapro) 10 MG tabletIndicatio ns:Mood disorder (CMS/HCC) TOME RADHA TABLETA TODOS [place] EN [facility] 90 tablet 3 024 Active levothyroxine (Synthroid, Levoxyl) 50 MCG tablet TAKE 1 TABLET (50 MCG) BY MOUTH IN THE MORNING. TAKE AT LEAST 40 MINUTES BEFORE MEAL 90 tablet 3 024 Active losartan (Cozaar) 25 MG tablet TAKE 1 TABLET BY MOUTH IN THE MORNING. TAKE 1 TABLET BY MOUTH IN THE EVENING. DO NOT TAKE IF SBP<120 180 tablet 1 024 Active sodium chloride (CVS Saline Nasal [place]) 0.65 % nasal spray USE 1-2 SPRAY [...] FOOD NEEDED 60 tablet 1 025 Active clotrimazole (Lotrimin) 1 % cream Apply topically 2 times daily. 60 g 3 025 Active docusate sodium (Colace) 100 MG capsuleIndicati ons:Constipatio n, unspecified constipation type TOME 1 CAPSULA POR VIA ORAL DOS VECES AL YONATHAN 180 capsule 1 025 Active naloxone (Narcan) 4 mg/0.1 mL nasal spray Administer 1 spray (4 mg) into affected nostril(s) if needed for opioid reversal. May repeat every 2-3 minutes if needed, alternating nostrils, until medical assistance becomes available. 2 each 025 Active hydroCHLOROthia zide (HYDRODiuril) 25 MG tabletIndicatio ns:Primary hypertension TOME 1 TABLETA POR VIA ORAL TODOS [place] 90 tablet 3 025 Active Tirzepatide-Neil ght Management (Zepbound) 2.5 MG/0.5ML solution auto-injector Inject 0.5 mL (2.5 mg) under the skin 1 (one) time per week. 2 mL 11 025 Active tiZANidine (Zanaflex) 4 MG tablet TAKE 1 TABLET BY MOUTH AT BEDTIME NEEDED FOR MUSCLE SPASMS 30 tablet 025 Active traMADol (Ultram) 50 MG tabletIndicatio ns:Chronic bilateral low back pain, unspecified whether sciatica present,Chronic pain of left knee Take 1 tablet (50 mg) by mouth every 8 (eight) hours if needed for severe pain. 42 tablet 025 Active tiZANidine (Zanaflex) 4 MG tablet TOME 1 TABLETA POR VIA ORAL TODOS [place] AL ACOSTARSE PARA EL ESPASMO MUSCULAR CUANDO SEA NECESARIO 30 tablet 025 2024 Discontinued traMADol (Ultram) 50 MG tabletIndicatio ns:Chronic bilateral low back pain, unspecified whether sciatica present,Chronic pain of left knee Take 1 tablet (50 mg) by mouth every 8 (eight) hours if needed for severe pain. 42 tablet 025 2024 Discontinued(R eorder (will not trigger notification to Pharmacy)) traMADol (Ultram) 50 MG tabletIndicatio ns:Chronic bilateral low back pain, unspecified whether sciatica present,Chronic pain of left knee Take 1 tablet (50 mg) by mouth every 8 (eight) hours if needed for severe pain. 42 tablet 025 2024 Discontinued(R eorder (will not trigger notification to Pharmacy)) Active Problems Problem Noted Date Diagnosed Date Status post total right knee replacement Assessment & Plan (03/14/2025 12:40 PM EDT): - 01/13/2025 - following with [facility] Status post total left knee replacement 03/09/20 Tinea pedis of left foot 12/13/2024 Assessment & Plan (12/13/2024 5:53 PM EDT): - clotrimazole cream Long-term current use of opiate analgesic 2024 Hypogonadism in male 06/02/2024 Assessment & Plan (06/02/2024 5:35 PM EDT): - Following with Dr. Shannon, [facility]. Last seen in Mar 2024 - Encouraged to talk with [facility] ambulatory care nurse regarding to coverage for testosterone Dyslipidemia 11/27/2023 Assessment & Plan (03/14/2025 12:38 PM EDT): - last lipid profile 03/09/25, elevated LDL 142, HDL 55, TRIG 160, CHOL 229 - work on lifestyle modifications - ASCVD risk is 4% - consider coronary calcium score test Assessment & Plan (08/30/2024 3:42 PM EST): [...] sc iatica 09/10/2023 09/10/2023 Assessment & Plan (03/10/2025 6:30 PM EDT): - following with Dr. Dumas - recently seen was referred to physical therapy - Pt tried pregabalin prescribed by orthopedist but was discontinued to due headache - continue judicious use of tramadol - Rx tizanidine Assessment & Plan (12/08/2024 4:39 PM EDT): [...] - continue allopurinol and low purine diet Dysuria-frequency syndrome 09/10/202309/10 Anxiety 09/10/2023 09/10/2023 Assessment & Plan (11/27/2023 2:39 PM EDT): - following with behavioral health service - currently taking escitalpram Hemorrhoids 08/18/2023 Assessment & Plan (08/18/2023 7:48 AM EST): - internal hemorrhoids seen during anoscopy exam by Dr. 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 - He did not recover fully since he had COVID in Aug 2022 - seen by hoof trimmer in January 2023, prescribed azithromycin, slow prednisone [...] COVID in Aug 2022 - seem by hoof trimmer in January 2023, prescribed azithromycin, slow prednisone taper and changed asthma / COPD medications. - marked improvement today; continue current treatment plan per Dr. Day. - judicious use of DuoNeb as he is experiencing leg cramp, possible low K and Mg Assessment & Plan (11/26/2022 11:03 AM EDT): - still coughing since he had COVID in Aug 2022 - referring to hoof trimmer Chronic pain of both knees 08/11/2022 Assessment & Plan (03/14/2025 12:41 PM EDT): -orthopedist: [facility] -s/p left total knee arthroplasty on 04/22/24 -s/p right total knee arthroplasty on 01/13/25 -continue following treatment plan per [facility] provider -continue working on weight loss -continue judicious use of tramadol for pain, plan to taper down to bid Assessment & Plan (12/08/2024 4:35 PM EDT): [...] - continue judicious use of tramadol under [employer] agreement Assessment & Plan (03/18/2023 4:31 PM EDT): - continue judicious use of tramadol under [employer] agreement Assessment & Plan (11/26/2022 10:56 AM EDT): - continue judicious use of tramadol under [employer] agreement Recurrent ventral incisional hernia 08/07/2022 Assessment & Plan (11/26/2022 11:00 AM EDT): -Followed by Dr. Nowak, referred to [facility], seen in October 2022 -Hx diverticulitis and perforated sigmoid colon requiring colectomy and end colostomy in 2015 -Reversal of colostomy in 2017 -Incisional hernia repair x 3 -Pt was recommended to continue working on weight reduction, likely to have an open hernia repair. -Follow up with [facility] [place] surgeon in Apr 2023 Assessment & Plan (08/07/2022 4:53 AM EST): -Followed by Dr. Nowak -Hx diverticulitis and perforated sigmoid colon requiring colectomy and end colostomy in 2015 -Reversal of colostomy in 2016 -Incisional hernia repair x 3 -Will be referred to tertiary care hospital -Continue working on weight loss Class 3 severe obesity due t o excess calories with serious comorbidity and body mass index (BMI) of 40.0 to 44.9 in adult 08/07/2022 Assessment & Plan (03/14/2025 12:48 PM EDT): -Continue working on lifestyle modification -Patient has KOBY and hypertension, and will benefit from GLP1RA treatment -Semaglutide was initially prescribed -Tirzepatide was not approved by his insurance -Check the status of PA for tirzepatide Assessment & Plan (12/08/2024 4:36 PM EDT): -Continue working on lifestyle modification -Semaglutide was initially prescribed -Changing to Zepbound. Will increase Zepbound to 5 mg 12/08/24 -Recommended to try another weight management clinic, such as [facility] Assessment & Plan (08/30/2024 3:38 PM EST): -Continue working on lifestyle modification -Semaglutide was initially prescribed -Changing to Zepbound -Recommended to try another weight management clinic, such as [facility] Assessment & Plan (06/02/2024 5:38 PM EDT): -Continue working on lifestyle modification -Semaglutide was prescribed in November 2023, but patient has not received it yet; will resend to [facility] pharmacy -Recommended to try another weight management clinic, such as [facility] Assessment & Plan (11/27/2023 2:46 PM EDT): -Pt was interested in seeing a [facility] gear milling machine set up operator, and was referred -Continue working on lifestyle modification -[facility] morning caregiver recommended semaglutide for the patient and it was prescribed. Patient still has not received it yet. Re-Rx. Assessment & Plan (08/18/2023 7:45 AM EST): Pt was interested in seeing a [facility] gear milling machine set up operator, and was referred Continue working on lifestyle modification Patient's morning caregiver from [facility] recommended Pablog[facility]. The script was sent. Assessment & Plan (03/18/2023 4:26 PM EDT): Pt is interested in seeing a [facility] gear milling machine set up operator Assessment & Plan (08/07/2022 4:53 AM EST): -Following with Surgical Weight Loss program at [facility] -Continue working on lifestyle modifications KOBY (obstructive sleep apnea) 08/07/2022 Assessment & Plan (03/14/2025 12:46 PM EDT): -Most recent Sleep Study 10/2021. -Severe KOBY with CPAP 11cm H2O. -Continue using CPAP to improve adherence. -Check if he can get GLP1RA approved Assessment & Plan (12/08/2024 4:30 PM EDT): [...] of right knee 08/07/2022 Assessment & Plan (03/10/2025 6:30 PM EDT): -Followed by [facility] provider -Octavio IV medial and patellofemoral arthritis. -Given steroid injection in September 2024 -Recommended to lose weight, until 295 lbs, before considering a surgery / TKA. Assessment & Plan (12/08/2024 4:35 PM EDT): [...] Plan (11/27/2023 2:35 PM EDT): -Following with Fine [employer]s [employer] [facility], last seen on 03/30/22 & 04/26/22 for elevated ESR / CRP, weakly (+) KHADRA and Polyarthralgia. -continue Allopurinol and Colchicine -cont current medications. Assessment & Plan (08/18/2023 7:43 AM EST): -Following with [employer] [facility], last seen on 03/30/22 & 04/26/22 for elevated ESR / CRP, weakly (+) KHADRA and Polyarthralgia. -continue Allopurinol and Colchicine -cont current medications. Assessment & Plan (03/18/2023 4:27 PM EDT): -Following with [employer] [facility], last seen on 03/30/22 & 04/26/22 for elevated ESR / CRP, weakly (+) KHADRA and Polyarthralgia. -continue Allopurinol and Colchicine -cont current medications. Assessment & Plan (12/31/2022 4:22 PM EDT): -Following with [employer] [facility], last seen on 03/30/22 & 04/26/22 for elevated ESR / CRP, weakly (+) KHADRA and Polyarthralgia. -started on Allopurinol and Colchicine -cont current medications. Assessment & Plan (08/07/2022 4:31 AM EST): -Following with [employer] [facility], last seen on 03/30/22 & 04/26/22 for elevated ESR / CRP, weakly (+) KHADRA and Polyarthralgia. -started on Allopurinol and Colchicine -cont current medications. Hypertension 08/07/2022 Assessment & Plan (03/14/2025 12:31 PM EDT): -Goal BP < 130/80 (Tx threshold 140/90) per ACC/AHA guideline -Continue working on lifestyle modifications -Current medications on the list: hydrochlorothiazide 25 mg daily and Losartan 25 mg daily -Previous medications: lisinopril 10 mg daily; amlodipine 5 mg daily -Check home BP -Advised to reschedule CD appointment Assessment & Plan (12/08/2024 4:34 PM EDT): [...] problem arises Asthma 07/23/2022 Assessment & Plan (03/10/2025 6:31 PM EDT): -Following with Dr. Day, [facility], last seen in November 2024 -Last [...] been using them. Advised to contact his hoof trimmer's office for reviewing medications Assessment & Plan (12/08/2024 4:34 PM EDT): -Following with Dr. Day, [facility], last seen in November 2024 -Last [...] been using them. Advised to contact his hoof trimmer's office for reviewing medications Assessment & Plan (08/30/2024 3:34 PM EST): -Following with Dr. Day, [facility], last seen in Jun 2024 -Last [...] been using them. Advised to contact his hoof trimmer's office for reviewing medications Assessment & Plan (06/02/2024 5:33 PM EDT): -Following with Dr. Day, [facility], last seen in Aug 2023 -Last [...] 2:32 PM EDT): -Following with Dr. Day, [facility], last seen in Aug 2023 -Last [...] DuoNeb prn -Plan to start Xolair; contacted [facility] pulmonary office and requested PFT arrangement. Treatment hx: fluticasone propionate / salmeterol (Wixela) was changed to budesonide / formoterol (Symbicort) in Aug 2023, but patient prefers Wixela, and has been using it. Assessment & Plan (08/18/2023 7:40 AM EST): -Following with Dr. Day, [facility], last seen in February 2023 -Last [...] 4:34 PM EDT): -Following with Dr. Day, [facility], last seen in February 2023 -Last [...] Chronic back pain 05/09/2018 Assessment & Plan (03/10/2025 6:30 PM EDT): -Seen by neurosurgeon and was recommended to lose weight before scheduling a decompression surgery -Followed by [facility] pain management for injection treatment -Treatment Hx: He has tried topiramate and gabapentin, for neuropathic pain, but were ineffective. Pt has tried MEDINA-2, NSAIDs other than ibuprofen, APAP, and muscle relaxants, which did not give pt's desired pain relief. Pt has Hx not following [employer] agreement and was receiving opioid analgesics from other provider. He is aware of the consequence if he does not follow [employer] agreement. -Continue judicious and responsible use of tramadol under [employer] agreement -Continue judicious use of ibuprofen (Pt verbalized understanding that ibuprofen should not be taken daily or long-term) -s/p posterior laminectomy, decompression, transforaminal interbody fusion L5-S1 on 12/02/23 -continue judicious use of tramadol -Rx tizanidine Assessment & Plan (08/30/2024 3:40 PM EST): -Seen by neurosurgeon and was recommended to lose weight before scheduling a decompression surgery -Followed by [facility] pain management for injection treatment -Treatment Hx: He has tried topiramate and gabapentin, for neuropathic pain, but were ineffective. Pt has tried MEDINA-2, NSAIDs other than ibuprofen, APAP, and muscle relaxants, which did not give pt's desired pain relief. Pt has Hx not following [employer] agreement and was receiving opioid analgesics from other provider. He is aware of the consequence if he does not follow [employer] agreement. -Continue judicious and responsible use of tramadol under [employer] agreement -Continue judicious use of ibuprofen (Pt verbalized understanding that ibuprofen should not be taken daily or long-term) -s/p posterior laminectomy, decompression, transforaminal interbody fusion L5-S1 on 12/02/23 -continue judicious use of tramadol -Rx tizanidine Assessment & Plan (06/02/2024 5:39 PM EDT): -Seen by neurosurgeon and was recommended to lose weight before scheduling a decompression surgery -Followed by [facility] pain management for injection treatment -Treatment Hx: He has tried topiramate and gabapentin, for neuropathic pain, but were ineffective. Pt has tried MEDINA-2, NSAIDs other than ibuprofen, APAP, and muscle relaxants, which did not give pt's desired pain relief. Pt has Hx not following [employer] agreement and was receiving opioid analgesics from other provider. He is aware of the consequence if he does not follow [employer] agreement. -Continue judicious and responsible use of tramadol under [employer] agreement -Continue judicious use of ibuprofen (Pt verbalized understanding that ibuprofen should not be taken daily or long-term) -s/p posterior laminectomy, decompression, transforaminal interbody fusion L5-S1 on 12/02/23 Assessment & Plan (11/27/2023 2:38 PM EDT): -Seen by neurosurgeon and was recommended to lose weight before scheduling a decompression surgery -Followed by [facility] pain management for injection treatment -Treatment Hx: He has tried topiramate and gabapentin, for neuropathic pain, but were ineffective. Pt has tried MEDINA-2, NSAIDs other than ibuprofen, APAP, and muscle relaxants, which did not give pt's desired pain relief. Pt has Hx not following [employer] agreement and was receiving opioid analgesics from other provider. He is aware of the consequence if he does not follow [employer] agreement. -Continue judicious and responsible use of tramadol under [employer] agreement -Continue judicious use of ibuprofen (Pt verbalized understanding that ibuprofen should not be taken daily or long-term) -Anticipating transforaminal interbody fusion L5-S1 on 12/02/23 Assessment & Plan (03/18/2023 4:14 PM EDT): -Seen by neurosurgeon and was recommended to lose weight before scheduling a decompression surgery -Followed by [facility] pain management for injection treatment -Treatment Hx: He has tried topiramate and gabapentin, for neuropathic pain, but were ineffective. Pt has tried MEDINA-2, NSAIDs other than ibuprofen, APAP, and muscle relaxants, which did not give pt's desired pain relief. Pt has Hx not following [employer] agreement and was receiving opioid analgesics from other provider. He is aware of the consequence if he does not follow [employer] agreement. -Continue judicious and responsible use of tramadol under [employer] agreement -Continue judicious use of ibuprofen (Pt verbalized understanding that ibuprofen should not be taken daily or long-term) Assessment & Plan (08/11/2022 6:08 AM EST): -Seen by neurosurgeon and was recommended to lose weight before scheduling a decompression surgery -Followed by [facility] pain management for injection treatment -Treatment Hx: He has tried topiramate and gabapentin, for neuropathic pain, but were ineffective. Pt has tried MEDINA-2, NSAIDs other than ibuprofen, APAP, and muscle relaxants, which did not give pt's desired pain relief. Pt has Hx not following [employer] agreement and was receiving opioid analgesics from other provider. He is aware of the consequence if he does not follow [employer] agreement. -Continue judicious and responsible use of tramadol under [employer] agreement -Continue judicious use of ibuprofen (Pt verbalized understanding that ibuprofen should not be taken daily or long-term) Continuous opioid dependence (CMS/[facility]) 8 Overview (08/11/2022): Tramadol under [employer] Deviated nasal septum 05/09/2018 Gastroesophageal reflux disease 05/09/2018 Assessment & Plan (11/27/2023 2:34 PM EDT): - Rx omeprazole - lifestyle modification History of colectomy 05/09/2018 Overview (07/25/2023): -Currently followed by [facility] - Dr. Eliu Hinkle 05/09/2018 Assessment & Plan (03/14/2025 12:33 PM EDT): -Current replacement: levothyroxine 50 mcg daily, questionable medication adherence -Last TSH in February 2025. Therapeutic. -Recheck thyroid function test and adjust dose accordingly -Emphasized the importance of adherence Assessment & Plan (12/08/2024 4:36 PM EDT): [...] replacement Mood disorder 05/09/2018 Assessment & Plan (12/13/2024 5:52 PM EDT): -PHQ9 score 10; GLENDY score 3 -Continue escitalopram 10 mg daily Assessment & Plan (08/11/2022 6:15 AM EST): [...] Encounters Date Type Department Care Team Description 07/19/2025 Orders Only [facility] External Provider, [facility] 07/19/2025 Refill [facility] [address] [place] [address] Renee Vazquez, nutritional yeast supervisor bilateral low back pain, unspecified whether sciatica present; Chronic pain of left knee 07/19/2025 Telephone [facility] [address] [place] [address] [phone] Patricia Berry MD Med Refill 07/15/2025 Refill [facility] [address] [place] [address] [phone] Patricia Berry MD 07/14/2025 3:15 PM EST Clinical Support [facility] [address] [place] [address] Renee Vazquez, LELE Low back pain of multiple sites of spine with sciatica (Primary Dx) 07/14/2025 Travel 07/02/2025 Refill [facility] [address] [place] [address] eRnee Vazquez RN Chronic bilateral low back pain, unspecified whether sciatica present; Chronic pain of left knee 07/01/2025 Telephone [facility] [address] [place] [address] [phone] Patricia Berry MD Med Refill 06/22/2025 Telephone [facility] [address] [place] [address] Renee Vazquez RN 06/18/2025 Telephone [facility] [address] [place] [address] [phone] Patricia Berry MD Prior Authorization ([facility] PA: Anju) 06/17/2025 Telephone [facility] [address] [place] [address] Renee Vazuqez RN 06/16/2025 Refill [facility] [address] [place] [address] Renee Vazquez, nutritional yeast supervisor bilateral low back pain, unspecified whether sciatica present; Chronic pain of left knee 06/16/2025 Telephone [facility] [address] [place] [address] [phone] Patricia Berry MD Med Refill 06/15/2025 Orders Only [facility] [address] [place] [address] [phone] Patricia Berry MD 06/04/2025 Telephone [facility] [address] [place] [address] Patricia Berry MD CHART PREP 05/31/2025 Refill [facility] [address] [place] [address] Renee Vazquez RN Chronic bilateral low back pain, unspecified whether sciatica present; Chronic pain of left knee 05/31/2025 Telephone [facility] [address] [place] [address] Patricia Berry MD Med Refill 05/14/2025 Refill [facility] [address] [place] [address] Renee Vazquez RN Chronic bilateral low back pain, unspecified whether sciatica present; Chronic pain of left knee 05/14/2025 Telephone [facility] [address] [place] [address] [phone] Patricia Berry MD Med Refill 04/30/2025 Refill [facility] [address] [place] [address] Khadra Vasquez MD Primary hypertension 04/30/2025 Refill [facility] [address] [place] [address] Lay Cristina, ANP 04/30/2025 Refill [facility] [address] [place] [address] Renee Vazquez RN Chronic bilateral low back pain, unspecified whether sciatica present; Chronic pain of left knee 04/30/2025 Telephone [facility] [address] [place] [address] [phone] Patricia Berry MD Med Refill 04/20/2025 Orders Only [facility] [address] [place] [address] [phone] Patricia Berry MD KOBY (obstructive sleep apnea) (Primary Dx); Class 3 severe obesity due to excess calories with serious comorbidity and body mass index (BMI) of 50.0 to 59.9 in adult 04/20/2025 Telephone [facility] [address] [place] [address] Patricia Berry MD Referral from Last 3 Months Immunizations Immunization Administration Dates Next Due Influenza Injectable Quadriv [...] is your housing situation today? I have srikanthkostas kaplan 12/08/[address] you [...] Sign Reading Time Taken Comments Blood Pressure 110/72 03/09/2025 2:15 PM EDT Pulse 73 03/09/2025 2:15 PM EDT Temperature 37.2 C (98.9 F) 03/09/2025 2:15 PM EDT Respiratory Rate 18 03/09/2025 2:15 PM EDT Oxygen Saturation 93% 03/09/2025 2:15 PM EDT Inhaled Oxygen Concentration - - Weight 153 kg (336 lb 6.4 oz) 03/09/2025 2:15 PM EDT Height 177.8 cm (5' 10 ) 12/08/2024 3:47 PM EDT Body Mass Index 48.27 12/08/2024 3:47 PM EDT Plan of Treatment Upcoming Encounters Date Type Department Care Team (Late st Contact Info) Description 09/06/2025 3:45 PM EST Office Visit [facility] 230 [place] [address] Patricia Berry MD 230 [place] [address] 10/11/2025 2:30 PM EST Clinical Support [facility] P[facility] 505 [place] [address] Renee Vazquez, LELE 505 [place] [address] Health Maintenance Due Date Last Done Comments Alcohol/Substance Use Screening 1984 Family Planning (PISQ) 12/27/1987 Hepatitis B Vaccines (1 of 3 - 19+ 3-dose series) 12/27/1991 RSV Patients and Patients Aged 60 years or older (1 - Risk 50-74 years 1-dose series) 2022 Zoster Vaccines (2 of 2) 07/19/2023 05/24/2023 COVID-19 Vaccine (3 - season) 2025 07/21/2021, 06/29/2021 Influenza Vaccine (#1) 2025 , 06/27/2021, 09/04/2016, Additional history exists Depression Monitoring 06/09/2025 12/08/2024, 025 Disability Screening 12/08/2025 12/08/2024 SDOH Screening 12/08/2025 12/08/2024 Tobacco Screening 03/14/2026 03/14/2025 DTaP/Tdap/Td Vaccines (4 - Td or Tdap) 10/03/2028 10/03/2018, 01/25/2017, 03/17/2010 Lipid Panel 03/09/2030 03/09/2025, 11/0 03/2024, 11/27/2023, Additional history exists HIV Screening Completed 12/31/2022, 03/12, 01/23/2022 Pneumococcal [...] patient's age to complete this topic Meningococcal B Vaccine Aged Out No l onger eligible based on patient's age to complete [...] 110/72( 025 2:15 PM EDT) No Craig Ochoa PharmD Procedures Procedure Name Priority Date/Time Associated Diagnosis Comments XR KNEE 1-2 VIEWS RIGHT Routine 07/20/2025 12:51 AM EST POCT KIRSTIE-14 URINE DRUG SCREEN Routine 07/14/2025 3:30 PM EST Low back pain of multiple sites of spine with sciatica AMB REFERRAL TO RHEUMATOLOGY Routine 06/02/2025 Myalgia Polyarthralgia LIPID PANEL WITH REFLEX TO DIRECT LDL Routine 03/09/2025 3:12 PM EDT Dyslipidemia HEPATITIS C AB W/REFL TO HCV RNA, QN, PCR Routine 07/02/2024 2:46 PM EST Transaminitis HIV 1/2 ANTIGEN/ANTIBODY, FOURTH GENERATION W/RFL Routine 12/31/2022 3:55 PM EDT from Last 3 Months or Most Recently Relevant to Health Maintenance Results * XR Knee 1-2 Views Right (07/20/2025 12:51 AM EST) Anatomical Region Laterality Modality Lower Extremities, Knee Right [facility] 07/20/2025 12:5 1 AM EST Narrative 07/20/2025 12:53 AM EST [place] [address] XRay Report Signed Patient: Brady Dale Jr MR#: [id number] 95 : 1970 Acct:[id number] Age/Sex: 54 / M ADM Date: 07/19/25 Loc: HO.ED Attending Dr: Ordering Physician: Julia Salgado DO Date of Service: 07/20/25 Procedure(s): XR knee RT 2V Accession Number(s): [id number] cc: Julia Salgado DO; Patricia Berry MD Reason for Exam: fall, pain CLINICAL HISTORY: fall, pain Right knee two views Comparison: None provided Findings: No acute fracture or dislocation. No significant joint effusion. Knee prosthesis with normal alignment. There is no component loosening. Impression: No acute bony abnormality This document has been electronically signed by: Rony Valdez MD on 07/20/2025 00:51:17 Dictated By: Rony Valdez MD Signed By: <Electronically signed by Rony Valdez MD in OV> 07/20/2551 DD/ TD/TT: 07/20/2550 Customer Advisor Specialist: Procedure Note Donotuseinterpreter, Image - 07/20/2025 [place] [address] XRay Report Signed Patient: Brady Dale [facility]#: [id number] 95 : 1970Acct:[id number] Age/Sex: 54 / MADM Date: 07/19/25 Loc: HO.ED Attending Dr: Ordering Physician: Julia Salgado DO Date of Service: 07/20/25 Procedure(s): XR knee RT 2V Accession Number(s): [id number] cc: Julia Salgado DO; Patricia Berry MD Reason for Exam: fall, pain CLINICAL HISTORY: fall, pain Right knee two views Comparison: None provided Findings: No acute fracture or dislocation. No significant joint effusion. Knee prosthesis with normal alignment. There is no component loosening. Impression: No acute bony abnormality This document has been electronically signed by: Rony Valdez MD on 07/20/2025 00:51:17 Dictated By: Rony Valdez MD Signed By: <Electronically signed by Rony Valdez MD in OV> 07/20/2551 DD/ TD/TT: 07/20/2550 Customer Advisor Specialist: [facility] External Provider IMG XR PROCEDURES Final Result * POCT KIRSTIE-14 Urine Drug Screen (07/14/2025 3:30 PM EST) THC Negative Negative Cocaine Screen, Urine Negative Negative Opiate Screen, Urine Negative Negative Methamphetamine Screen Urine Negative Negative Amphetamine Screen, Urine Negative Negative Benzodiazepines Screen, Urine Negative Negative Barbiturate Screen, Urine Negative Negative Methadone Screen, Urine Negative Negative Buprenophine Screen, Urine Negative Negative TCA, Urine Negative Negative MDMA Urine Negative Negative ng/mL Oxycodone Screen, Urine Negative Negative Phencyclidine (PCP), Urine Negative Negative Propoxyphene, Urine Negative Negative Fentanyl, Urine Negative Negative Urine Urine specimen obtained by clean catch procedure / Unknown 07/14/2025 3:30 PM EST Narrative Renee Vazquez RN - 07/14/2025 3:30 PM EST . Internal Pass Control Lot# [id number] Exp: 05-18-26 us Patricia Berry MD POINT OF CARE TEST ENTER/EDIT OR DERABLES Final Result * Referral to Rheumatology (06/02/2025) us Patricia Berry MD OUTPATIENT REFERRAL ORDERABLES F inal Result * (ABNORMAL) Lipid Panel with Reflex to Direct LDL (03/09/2025 3:12 PM EDT) Triglycerides 160(H) <150 mg/dL [facility] Comment:Desirable Triglyceri de: less than 150 mg/dLBorderline High Triglyceride 150-199 mg/dLHigh Triglyceride: 200-499 mg/dLVery High Triglyceride: greater than or equal to 5OO mg/dL Cholesterol 229(H) <200 mg/dL [facility] Comment:Desirable Cholestero l: less than 200 mg/dLBorderline High Cholesterol: 200-239 mg/dLHigh Cholesterol: greater than 239 mg/dL LDL Cholesterol Calculated 142(H) <100 mg/dL [facility] Comment:Desirable LDL: less than 100 mg/dLNear Optimal/Above Optimal LDL: 110- 129 mg/dLBorderline High LDL: 130-159 mg/dLHigh LDL: 160-189 mg/dLVery High LDL: greater than or equal to 190 mg/dL HDL Cholesterol 55 >40 mg/dL [facility] Comment:Desirable HDL: great er than 40 mg/dL Note: This HDL assay may give artificially low results in patients with liver disease. Blood 03/09/2025 3:12 PM EDT 03/09/2025 4:09 PM EDT Patricia Berry MD LAB BLOOD ORDERABLES Final Resul t Performing Organization Address City/[facility]/ZIP Co de Phone Number [facility] [address] [place] [phone] * Hepatitis C Antibody with Reflex to HCV, RNA, Quantitative, Real-Time PCR (07/02/2024 2:46 PM EST) Hepatitis C Antibody Nonreactive Nonreactive [facility] Comment:Antibodies to HCV no t detected; does not exclude early acuteHCV infection. Blood Venous blood specimen / Unknown 07/02/2024 2:46 PM EST 07/02/2024 2:46 PM EST Patricia Berry MD LAB BLOOD ORDERABLES Final Resul t Performing Organization Address [facility] Co de Phone Number [facility] [address] [place] [address] [phone] * HIV-1/2 Antigen and Antibodies, Fourth Generation, with Reflexes (12/31/2022 3:55 PM EDT) HIV Antigen/Antibody, 4th Generation NON-REAC TIVE NON-REAC TIVE [facility] Comment: HIV-1 antigen and HIV-1/HIV-2 antibodies were not detected. There is no laboratory evidence of HIV infection. PLEASE NOTE: This information has been disclosed to you from records whose confidentiality may be protected by state law. If your state requires such protection, then the state law prohibits you from making any further disclosure of the information without the specific written consent of the person to whom it pertains, or as otherwise permitted by law. A general authorization for the release of medical or other information is NOT sufficient for this purpose. For additional information please refer to http://education.Hitsbook.[employer]/faq/YEL307 (This link is being provided for informational/ educational purposes only.) The performance of this assay has not been clinically validated in patients less than 2 years old. 12/31/2022 3:55 PM EDT 12/31/2022 3:56 PM EDT us Patricia Berry MD LAB BLOOD ORDERABLES Final Resul t [facility] [address], [place] [address] [facility] [address] [place] [address] from Last 3 Months or Most Recently Relevant to Health Maintenance Insurance [facility] < 65 [place] [id number] Care Teams Glue Reel Operator Relationship Specialty Start Date End Date Patricia Berry MD [address] [place] [address] PCP - General Family Medicine 05/11/21 Craig Ochoa, PharmD [address] [place], [place] Pharmacist Internal Medicine 05/24/23
--- OUTSIDE RECORDS SUMMARY | 2025-07-20 02:34 | XMS_ITS | Encounter Summary ---
Author Organization [employer] Address [address] [facility] 7t [place] [address] Care Team Providers Care Plastic Fabricator Name Role Phone Patricia Berry MD Primary Care Provider [phone] Craig Ochoa PharmD Unavailable [phone] Reason for Visit * Reason Comments Med Refill Encounter Details Date Type Department Care Team ([facility] st Contact Info) Description 07/16/2024 Refill [facility] [address] [place], [place] [phone] Patricia Berry MD 230 [place], [place] [phone] Social History Tobacco Use Types Packs/Day Years [...] Description 09/06/2025 3:45 PM EST Office Visit [facility] [address] [place] [address] Patricia Berry MD [address] [place] [address] 10/11/2025 2:30 PM EST Clinical Support [facility] [address] [place] [address] Renee Vazquez, LELE [address] [place] [address] documented as of this encounter Goals Goal Patient Goal Type Associated Problems Recent Progress Patient-Stated? Author Blood Pressure < 140/90 Blood Pressure 110/72( 025 2:15 PM EDT) Craig Ramsey, ShawnD documented as of this encounter Visit Diagnoses Not on filedocumented in this encounter Additional Health Concerns Assessment Noted Time PHQ-9 Depression Total Score: 0 11/27/19 24 10:58 AM EDT documented as of this encounter Care Teams Plastic Fabricator Relationship Specialty Start Date End Date Patricia Berry MD [address] [place] [phone] PCP - General Family Medicine 05/11/21 Craig Ochoa, ShawnD [address] [place] [phone] Pharmacist Internal Medicine 05/24/23 documented as of this encounter
--- OUTSIDE RECORDS SUMMARY | 2025-07-20 02:34 | XMS_ITS | Encounter Summary ---
Author Organization [employer] Address [address] [facility] 7t [place] [address] Care Team Providers Care Hazard Waste Handler Name Role Phone Patricia Berry MD Primary Care Provider [phone] Craig Ochoa PharmD Unavailable Reason for Visit * Reason Onset Date Comments Med Refill 12/04/2024 Encounter Details Date Type Department Care Team (Late st Contact Info) Description 12/04/2024 Telephone [facility] [address] [place] [address] Patricia Berry MD [address] [place], [place] [phone] Med Refill Social History Tobacco Use Types [...] 50 MG tablet To be sent to: [facility]/pharmacy #[id number] [place], [place] - [facility] YURIY DHILLON documented in this encounter Plan of Treatment Upcoming Encounters Date Type Department Care Team ([facility] st Contact Info) Description 09/06/2025 3:45 PM EST Office Visit [facility] [address] [place] [address] Patricia Berry MD [address] [place] [address] 10/11/2025 2:30 PM EST Clinical Support [facility]S 505 [place] [address] Renee Vazquez, RN 505 [place] [address] documented as of this encounter Goals Goal Patient Goal Type Associated Problems Recent Progress Patient-Stated? Author Blood Pressure < 140/90 Blood Pressure 110/72( 025 2:15 PM EDT) No Craig Ocoha, PharmD documented as of this encounter Visit Diagnoses Not on filedocumented in this encounter Additional Health Concerns Assessment Noted Time PHQ-9 Depression Total Score: 0 11/27/19 24 10:58 AM EDT documented as of this encounter Care Teams Hazard Waste Handler Relationship Specialty Start Date End Date Patricia Berry MD [address] [place] [phone] PCP - General Family Medicine 05/11/21 Craig Ochoa, PharmD [address] [place] [phone] Pharmacist Internal Medicine 05/24/23 documented as of this encounter
--- OUTSIDE RECORDS SUMMARY | 2025-07-20 02:34 | XMS_ITS | Clinical Summary ---
Author Organization [facility] Address [address] [place] [phone] Phone Care Team Providers Care Executive Director Global Brand Marketing Name Role Phone Patricia Berry MD Primary Care Provider [phone] Social History Tobacco Use Types Packs/Day Years [...] years) (1 of 1 - PCV) 2022 RSV VACCINE (1 - Risk 50-74 years 1-dose series) 2022 ZOSTER VACCINES (1 of 2) 2022 INFLUENZA VACCINE (#1) 2025 1, 09/04/2016, 06/06/2010 COVID-19 VACCINE (1 - 2024-2 6 season) 2025 SCREENING FOR DIABETES 11/07/2025 3, 11/07/2022 Adult Td,Tdap Booster 10/03/2028 10/03/2018 , [...] topic Medical Devices Not on file Insurance [facility] ONE CARE MEDICARE REPLACEMENT [place] [address] MEDICARE REPLACEMENT MEDICARE REPLACEMENT [facility] CARE MEDICARE REPLACEMENT [facility] CARE MEDICARE REPLACEMENT Care Teams Executive Director Global Brand Marketing Relationship Specialty Start Date End Date Patricia Berry MD [address] [place] [phone] PCP - General Family Medicine 08/14/22 Additional Source Comments The information contained in this document represents components of the legal health record. It is not the complete legal health record.[facility]
--- OUTSIDE RECORDS SUMMARY | 2025-07-20 02:34 | XMS_ITS | Encounter Summary ---
Author Organization [employer] Address [address] [facility] 7t [place] [address] Care Team Providers Care Web Operations Lead Name Role Phone Patricia Berry MD Primary Care Provider [phone] Craig Ochoa PharmD Unavailable [phone] Reason for Referral * Consultation (Routine) - Closed Specialty Diagnoses / Procedures Referred By Contac t Referred To Contact Bariatrics Diagnoses KOBY (obstructive sleep apnea) Class 3 severe obesity due to excess calories with serious comorbidity and body mass index (BMI) of 50.0 to 59.9 in adult (HCC) Patricia Berry MD [address] [place] [address] Phone: tel: fax: Breana Nettles MD [address] [place] [address] [address] [place] [address] Phone: tel: fax: Referral ID Status Reason Start Date Expiration Date V isits Requested Visits Authorized [id number] Closed Specialty Services Required 04/20/2025 04/20/2026 1 1 Encounter Details Date Type Department Care Team (Late st Contact Info) Description 04/20/2025 Orders Only [facility]INE 230 [place], [place] [phone] Patricia Berry MD [address] [place], [place] [phone] KOBY (obstructive sleep apnea) (Primary Dx); Class 3 severe obesity due to excess calories with serious comorbidity and body mass index (BMI) of 50.0 to 59.9 in adult Social History Tobacco Use Types Packs/Day Years Used Date Smoking Tobacco: Never Passive Smoke Exposure: Never Smokeless Tobacco: Never Alcohol Use Standard Drinks/Week Comments Never 0 (1 standard drink = 0.6 oz pur e alcohol) Alcohol Answer Date Recorded Frequency of Alcohol Consumption Not on file 06/02/2024 Average Number of Drinks Not on file Frequency of Binge Drinking Not on file 05/13 Score 0 06/02/2024 Depression Answer Date Recorded Patient Health Questionnaire-9 Score 10 12/08/2024 Patient Health Questionnaire-9 Score 10 12/08/2024 Last PHQ-9: Questionnaire Data Not on file 0 12/08/2024 Housing Stability Answer Date Recorded What is your housing situation today? I have srikanth eusebio 12/08/[address] you li [...] Description 09/06/2025 3:45 PM EST Office Visit [facility] 230 [facility] [place] [address] Patricia Berry MD [address] [place] [address] 10/11/2025 2:30 PM EST Clinical Support [facility] [address] [place], [place] [phone] Renee Vazquez, RN 505 [place], [place] Scheduled Referrals Name Type Priority Associated Diagnoses Orde r Schedule Referral to Weight Management Outpatient Referral Routine KOBY (obstructive sleep apnea) Class 3 severe obesity due to excess calories with serious comorbidity and body mass index (BMI) of 50.0 to 59.9 in adult Expected: 04/20/2025 (Approximate), Expires: 04/20/2026 documented as of this encounter Goals Goal Patient Goal Type Associated Problems Recent Progress Patient-Stated? Author Blood Pressure < 140/90 Blood Pressure 110/72( 025 2:15 PM EDT) No Craig Ochoa, Caroline documented as of this encounter Visit Diagnoses Diagnosis KOBY (obstructive sleep apnea)- Primary Obstructive sleep apnea (adult) (pediatric) Class 3 severe obesity due to excess calories with serious comorbidity and body mass index (BMI) of 50.0 to 59.9 in adult (HCC) documented in this encounter Additional Health Concerns Assessment Noted Time PHQ-9 Depression Total Score: 10 025 4:22 PM EDT documented as of this encounter Care Teams Web Operations Lead Relationship Specialty Start Date End Date Patricia Berry MD [address] [place] [phone] PCP - General Family Medicine 05/11/21 Craig Ochoa, PharmD [address] [place] [address] [phone] Pharmacist Internal Medicine 05/24/23 documented as of this encounter
--- OUTSIDE RECORDS SUMMARY | 2025-07-20 02:34 | XMS_ITS | Encounter Summary ---
Author Organization [employer] Address [address] [facility] 7t [place] [address] Care Team Providers Care Wood Gluer Name Role Phone Patricia Berry MD Primary Care Provider [phone] Craig Ochoa PharmD Unavailable [phone] Reason for Referral * Consultation (Routine) - Closed Specialty Diagnoses / Procedures Referred By Contac t Referred To Contact Chiropractic Medicine Diagnoses Chronic bilateral low back pain, unspecified whether sciatica present Low back pain of multiple sites of spine with sciatica Patricia Berry MD [address] [place] [phone] Phone: tel: fax: [facility] [address] [place] [address] Phone: tel: fax: Referral ID Status Reason Start Date Expiration Date V isits Requested Visits Authorized [id number] Closed Specialty Services Required 10/02/2023 10/01/2024 1 1 Encounter Details Date Type Department Care Team (Late st Contact Info) Description 10/02/2023 Orders Only [facility] 230 [place], [place] [phone] Patricia Berry MD [address] [place] [phone] Chronic bilateral low back pain, unspecified whether [...] Description 09/06/2025 3:45 PM EST Office Visit [facility] [address] [place] [address] Patricia Berry MD [address] [place] [address] 10/11/2025 2:30 PM EST Clinical Support [facility] [address] [place] [address] Renee Vazquez, LELE 505 [place] [address] Scheduled Referrals Name Type Priority Associated Diagnoses [...] sciatica documented in this encounter Care Teams Wood Gluer Relationship Specialty Start Date End Date Patricia Berry MD [address] [place] [address] PCP - General Family Medicine 05/11/21 Craig Ochoa, ShawnD [address] [place] [address] Pharmacist Internal Medicine 05/24/23 documented as of this encounter
--- OUTSIDE RECORDS SUMMARY | 2025-07-20 02:34 | XMS_ITS | Encounter Summary ---
Author Organization [employer] Address [address] [facility] 7t [place] [address] Care Team Providers Care Boom Boss Name Role Phone Patricia Berry MD Primary Care Provider [phone] Craig Ochoa PharmD Unavailable [phone] Encounter Details Date Type Department Care Team (Late st Contact Info) Description 09/06/2022 Orders Only [facility] MED[facility]INE [address] [place] [phone] Jeanine Kearns LPN Social History Tobacco Use [...] Description 09/06/2025 3:45 PM EST Office Visit [facility] MED[facility]INE [address] [place] [phone] Patricia Berry MD [address] [place] [phone] 10/11/2025 2:30 PM EST Clinical Support [facility]EDS [address] [place] [address] Renee Vazquez, RN 505 [place] [address] documented as of this encounter Visit Diagnoses Not on filedocumented in this encounter Care Teams Boom Boss Relationship Specialty Start Date End Date Patricia Berry MD [address] [place] [phone] PCP - General Family Medicine 05/11/21 Craig Ochoa, ShawnD [address] [place] [phone] Pharmacist Internal Medicine 05/24/23 documented as of this encounter
--- OUTSIDE RECORDS SUMMARY | 2025-07-20 02:34 | XMS_ITS | Encounter Summary ---
Author Organization [employer] Address [address] [facility] 7t [place] [address] Care Team Providers Care Content Management Consultant Name Role Phone Patricia Berry MD Primary Care Provider [phone] Craig Ochoa PharmD Unavailable [phone] Reason for Visit * Reason Comments Med Refill Encounter Details Date Type Department Care Team (Late st Contact Info) Description 07/27/2024 Refill [facility] 230 [place], [place] [phone] Patricia Berry MD 230 [place], [place] [phone] Class 3 severe obesity due to excess [...] Description 09/06/2025 3:45 PM EST Office Visit [facility] [address] [place] [address] Patricia Berry MD [address] [place] [address] 10/11/2025 2:30 PM EST Clinical Support [facility] 505 [place] [address] Renee Vazquez, LELE 505 [place] [address] documented as of this encounter Goals Goal Patient Goal Type Associated Problems Recent Progress Patient-Stated? Author Blood Pressure < 140/90 Blood Pressure 110/72( 025 2:15 PM EDT) No Craig Ochoa, PharmD documented as of this encounter Visit Diagnoses Diagnosis Class 3 severe obesity due to excess calories with serious comorbidity and body mass index (BMI) of 45.0 to 49.9 in adult (HCC) documented in this encounter Additional Health Concerns Assessment Noted Time PHQ-9 Depression Total Score: 0 11/27/19 24 10:58 AM EDT documented as of this encounter Care Teams Content Management Consultant Relationship Specialty Start Date End Date Patricia Berry MD [address] [place] [address] PCP - General Family Medicine 05/11/21 Craig Ochoa, Caroline [address] [place] [address] Pharmacist Internal Medicine 05/24/23 documented as of this encounter
--- OUTSIDE RECORDS SUMMARY | 2025-07-20 02:34 | XMS_ITS | Clinical Summary ---
Author Organization [facility] Address [address] [place] [address] Phone Care Team Providers Care Instrument Assembler Name Role Phone Patricia Berry MD Primary Care Provider [phone] Surgical History Surgery Date Site/Laterality Comments CIRCUMCISION, PRIMARY as a child PROCEDURE: HISTORICAL CIRCUMCISION OTHER SURGICAL HISTORY PROCEDURE: ---- OTHER ----; COMMENT: LS steroid injections Medical History Medical History Date Comments Asthma DX:Asthma Anxiety DX:Anxiety Depression DX:Depression Family History Medical History Relation Name Comments Autoimmune disease Neg Hx Breast cancer Neg Hx Colon cancer Neg Hx Coronary artery disease Neg Hx Diabetes Neg Hx Heart attack Neg Hx Heart failure Neg Hx Hyperlipidemia Neg Hx Hypertension Neg Hx Mental illness Neg Hx Prostate cancer Neg Hx Sleep apnea Neg Hx Thyroid disease Neg Hx Social History Tobacco Use Types Packs/Day Years Used Date Smoking Tobacco: Former Smokeless Tobacco: Never Alcohol Use Standard Drinks/Week Comments Yes 0 (1 standard drink = 0.6 oz pur e alcohol) Sex and Gender Information Value Date Recorded Sex Assigned at Not on file Legal Sex Male 3:33 PM EST Gender Identity Not on file Sexual Orientation Not on file Plan of Treatment Upcoming Encounters Date Type Department Care Team (Late st Contact Info) Description 11/16/2025 2:30 PM EDT Consult Bariatric Surgery [facility] 175 [facility] [address] [place] [address] Breana Nettles MD [address] [place] [address] Health Maintenance Due Date Last Done Comments Colorectal Cancer Screening: Colonoscopy 1972 Hepatitis B Vaccines (1 of 3 - 19+ 3-dose series) 12/27/1991 Pneumococcal Vaccine: 50+ Ye ars (1 of 2 - PCV) 12/27/1991 DTaP,Tdap,and Td Vaccines (2 - Td or Tdap) 03/17/2020 03/17/2010 RSV Immunization Adult Patie nts (1 - Risk 50-74 years 1-dose series) 2022 Zoster Vaccines (1 of 2) 2022 Depression Screening 08/12/2024 COVID-19 Vaccine (1 - 2024-2 6 season) 2025 Influenza Vaccine (#1) 2025 06/06/2010 Cholesterol Screening (Lipid Panel) 04/27/2025 HIV Screening 04/27/2025 Hepatitis C Screening 04/27/2025 Hypertension/CHF/CAD Annual BMP Blood Test 04/27/2025 Social Influencers of Health Screening 04/27/2025 HIB Vaccines Aged Out No longer eligi [...] on patient's age to complete this topic MMR Vaccines Aged Out No longer eligi ble based on patient's age to complete this topic Meningococcal ACWY Vaccine Aged Out N o longer eligible based on patient's age to complete this topic Meningococcal B Vaccine Aged Out No l onger eligible based on patient's age to complete this topic RSV Immunization Patients Un frankie 20 months Aged Out No longer eligible b ased on patient's age to complete this topic Varicella Vaccines Aged Out No longer eligible based on patient's age to complete this topic Insurance [facility] [employer] MEDICAID Care Teams Instrument Assembler Relationship Specialty Start Date End Date Patricia Berry MD [address] [place] [phone] PCP - General Family Medicine 04/27/25
--- OUTSIDE RECORDS SUMMARY | 2025-07-20 02:34 | XMS_ITS | Encounter Summary ---
Author Organization [employer] Address 75 [facility] 7t [place] [address] Care Team Providers Care Semiconductor Testing Group Leader Name Role Phone Patricia Berry MD Primary Care Provider [phone] Craig Ochoa PharmD Unavailable [phone] Reason for Visit * Reason Onset Date Comments ER Follow-up 07/18/2023 Encounter Details Date Type Department Care Team ([facility] st Contact Info) Description 07/18/[address] [facility] [address] [place], [place] [phone] Patricia Berry MD [address] [place], [place] [phone] ER Follow-up Social History Tobacco Use Types [...] ED visit. Patient was NOT seen at [facility] ED on 07/17/23. Patient reported that he was seen at [facility] ED the night of 07/11/23 for blood in stool. [facility] notes in chart. Patient reported bright red [...] sooner appointment on Saturday or Saturday at [facility], so scheduled for 07/24/23 with Elton Ellis @ 10am. Routing message to PCP so she is aware. Message: Tc from patient requesting a ER Follow up appt was seen at [facility] on 07/17 for blood in stool and was diagnosed with colonitis and needs Colonoscopy * Telephone Encounter - Edmundo Márquez - 07/18/2023 3:36 PM EST Tc from patient requesting a ER Follow up appt was seen at [facility] on 07/17 for blood in stool and was diagnosed with colonitis and needs Colonoscopy documented in this encounter Plan of Treatment Upcoming Encounters Date Type Department Care Team (Late st Contact Info) Description 09/06/2025 3:45 PM EST Office [address] [facility] [address] [place] [address] Patricia Berry MD [address] [place] [address] 10/11/2025 2:30 PM EST Clinical Support [facility] 505 [place], [place] [phone] Renee Vazquez, LELE [address] [place], [place] [phone] documented as of this encounter Goals Goal Patient Goal Type Associated Problems Recent Progress Patient-Stated? Author Blood Pressure < 140/90 Blood Pressure 110/72( 025 2:15 PM EDT) No Craig Ochoa, PharmKassidy documented as of this encounter Visit Diagnoses Not on filedocumented in this encounter Care Teams Semiconductor Testing Group Leader Relationship Specialty Start Date End Date Patricia Berry MD [address] [place] [address] PCP - General Family Medicine 05/11/21 Craig Ochoa, PharmD [address] [place] [address] Pharmacist Internal Medicine 05/24/23 documented as of this encounter
--- OUTSIDE RECORDS SUMMARY | 2025-07-20 02:34 | XMS_ITS | Encounter Summary ---
Author Organization [employer] Address [address] [facility] 7t [place] [address] Care Team Providers Care Armature Rewinder Name Role Phone Patricia Berry MD Primary Care Provider [phone] Craig Ochoa PharmD Unavailable [phone] Reason for Visit * Reason Comments Med Refill Encounter Details Date Type Department Care Team (Late st Contact Info) Description 08/05/[address] [facility] [address] [place] [address] [phone] Moses Tejada FNP Moderate persistent asthma without [...] 09/06/2025 3:45 PM EST Office Visit [facility] [address] [place] [address] [phone] Patricia Berry MD 230 [place], [place] [phone] 10/11/2025 2:30 PM EST Clinical Support [facility] 505 [place] [address] Renee Vazquez, RN 505 [place] [address] documented as of this encounter Visit Diagnoses Diagnosis Moderate persistent asthma without complication documented in this encounter Care Teams Armature Rewinder Relationship Specialty Start Date End Date Patricia Berry MD [address] [place] [address] PCP - General Family Medicine 05/11/21 Craig Ochoa, Caroline [address] [place] [address] Pharmacist Internal Medicine 05/24/23 documented as of this encounter
--- OUTSIDE RECORDS SUMMARY | 2025-07-20 02:34 | XMS_ITS | Encounter Summary ---
Author Organization [employer] Address 75 [facility] 7t [place] [address] Care Team Providers Care Distributor Advertising Material Name Role Phone Patricia Berry MD Primary Care Provider [phone] Craig Ochoa PharmD Unavailable [phone] Encounter Details Date Type Department Care Team ([facility] st Contact Info) Description 08/14/2023 Orders Only [facility] MED[facility] 230 [place], [place] [phone] Patricia Berry MD [address] [place], [place] [phone] Hypothyroidism, unspecified type (Primary Dx) Social History [...] Description 09/06/2025 3:45 PM EST Office Visit [facility] 230 [place], [place] [phone] Patricia Berry MD [address] [place], [place] [phone] 10/11/2025 2:30 PM EST Clinical Support [facility] 505 [place], [place] [phone] Renee Vazquez, RN [address] [place], [place] [phone] documented as of this encounter Goals Goal [...] Free T4 2.74 0.32 - 4.0 uIU/mL [facility] Blood 11/27/2023 12:1 0 PM EDT 11/27/2023 1:11 PM EDT Patricia Berry MD LAB BLOOD ORDERABLES Final Resul t [facility] [address] [place] [phone] [phone] documented in this encounter Visit Diagnoses Diagnosis Hypothyroidism, unspecified type- Primary documented in this encounter Care Teams Distributor Advertising Material Relationship Specialty Start Date End Date Patricia Berry MD [address] [place] [address] PCP - General Family Medicine 05/11/21 Craig Ochoa, ShawnD [address] [place] [address] Pharmacist Internal Medicine 05/24/23 documented as of this encounter
--- OUTSIDE RECORDS SUMMARY | 2025-07-20 02:34 | XMS_ITS | Encounter Summary ---
Author Organization [employer] Address 75 [facility] 7t [place] [address] Care Team Providers Care Datastage Developer Name Role Phone Patricia Berry MD Primary Care Provider Craig Ochoa PharmD Unavailable [phone] Reason for Visit * Reason Onset Date Comments Med Refill 04/30/2025 Encounter Details Date Type Department Care Team (Late st Contact Info) Description 04/30/2025 Telephone [facility] 230 [place], [place] [phone] Patricia Berry MD [address] [place], [place] [phone] Med Refill Social History Tobacco Use Types [...] encounter Miscellaneous Notes * Telephone Encounter - Shemar Navarrete - 04/30/2025 12:42 PM EDT TC from pt requesting medication refill. Medications needing refill : traMADol (Ultram) 50 MG tablet To be sent to: [facility]/pharmacy #[id number] [place] [address] - [address] [place] [address] documented in this encounter Plan of Treatment Upcoming Encounters Date Type Department Care Team (Late st Contact Info) Description 09/06/2025 3:45 PM EST Office Visit [facility] [address] [place] [address] Patricia Berry MD [address] [place] [address] 10/11/2025 2:30 PM EST Clinical Support [facility] 505 [place] [address] Renee Vazquez, RN 505 [place] [address] documented as of this encounter Goals Goal [...] documented as of this encounter Care Teams Datastage Developer Relationship Specialty Start Date End Date Patricia Berry MD [address] [place] [address] PCP - General Family Medicine 05/11/21 Craig Ochoa, PharmD [address] [place] [address] Pharmacist Internal Medicine 05/24/23 documented as of this encounter
--- OUTSIDE RECORDS SUMMARY | 2025-07-20 02:34 | XMS_ITS | Encounter Summary ---
Author Organization [employer] Address 75 [facility] 7t [place] [address] Care Team Providers Care Floor Coverer Name Role Phone Patricia Berry MD Primary Care Provider [phone] Craig Ochoa PharmD Unavailable [phone] Encounter Details Date Type Department Care Team ([facility] st Contact Info) Description 08/07/2023 Orders Only [facility] [address] [place], [place] [phone] Patricia Berry MD [address] [place], [place] [phone] Social History Tobacco Use Types Packs/Day Years [...] Description 09/06/2025 3:45 PM EST Office Visit [facility] [address] [place] [address] Patricia Berry MD [address] [place] [address] 10/11/2025 2:30 PM EST Clinical Support [facility] 505 [place], [place] [phone] Renee Vazquez, RN 505 [place], [place] [phone] documented as of this encounter Goals Goal Patient Goal Type Associated Problems Recent Progress Patient-Stated? Author Blood Pressure < 140/90 Blood Pressure 110/72( 025 2:15 PM EDT) No Craig Ochoa PharmD documented as of this encounter Visit Diagnoses Not on filedocumented in this encounter Care Teams Floor Coverer Relationship Specialty Start Date End Date Patricia Berry MD [address] [place] [address] PCP - General Family Medicine 05/11/21 Craig Ochoa PharmD [address] [place] [address] Pharmacist Internal Medicine 05/24/23 documented as of this encounter
--- OUTSIDE RECORDS SUMMARY | 2025-07-20 02:34 | XMS_ITS | Encounter Summary ---
Author Organization [employer] Address 75 [facility] 7t [place] [address] Care Team Providers Care Receiver Name Role Phone Patricia Berry MD Primary Care Provider [phone] Craig Ochoa PharmD Unavailable [phone] Reason for Visit * Reason Comments Med Refill Encounter Details Date Type Department Care Team (Late st Contact Info) Description 01/14/2023 Refill [facility] [address] [place] [address] Heena Vasquez MD [address] [place] [address] Subacute maxillary sinusitis; Seasonal allergies Social History [...] Description 09/06/2025 3:45 PM EST Office Visit [facility] [address] [place] [address] Patricia Berry MD [address] [place], [place] 10/11/2025 2:30 PM EST Clinical Support [facility] [address] [place], [place] [phone] Renee Vazquez, LELE 505 [place] [address] documented as of this encounter Visit Diagnoses Diagnosis Subacute maxillary sinusitis Seasonal allergies Allergic rhinitis, cause unspecified documented in this encounter Care Teams Receiver Relationship Specialty Start Date End Date Patricia Berry MD [address] [place] [address] PCP - General Family Medicine 05/11/21 Craig Ochoa, PharmD [address] [place] [address] Pharmacist Internal Medicine 05/24/23 documented as of this encounter
--- OUTSIDE RECORDS SUMMARY | 2025-07-20 02:34 | XMS_ITS | Encounter Summary ---
Author Organization [employer] Address 75 [facility] 7t [place] [address] Care Team Providers Care Professor Of Biological Sciences Name Role Phone Patricia Berry MD Primary Care Provider [phone] Craig Ochoa PharmD Unavailable [phone] Reason for Visit * Reason Onset Date Comments Med Refill 05/14/2025 Encounter Details Date Type Department Care Team (Late st Contact Info) Description 05/14/2025 Telephone [facility] MEDICINE [address] [place] [address] Patricia Berry MD [address] [place], [place] [phone] Med Refill Social History Tobacco Use Types [...] * Telephone Encounter - Shemar Navarrete - 05/14/2025 1:24 PM EDT TC from pt requesting medication refill. Medications needing refill : traMADol (Ultram) 50 MG tablet To be sent to: [facility]/pharmacy #[id number] [place] [address] - [address] [place] [address] documented in this encounter Plan of Treatment Upcoming Encounters Date Type Department Care Team (Late st Contact Info) Description 09/06/2025 3:45 PM EST Office Visit [facility] [address] [place] [address] Patricia Berry MD [address] [place] [address] 10/11/2025 2:30 PM EST Clinical Support [facility] 505 [place] [address] Renee Vazquez, RN 505 [place] [address] documented as of this encounter Goals Goal [...] documented as of this encounter Care Teams Professor Of Biological Sciences Relationship Specialty Start Date End Date Patricia Berry MD [address] [place] [address] PCP - General Family Medicine 05/11/21 Craig Ochoa, PharmD [address] [place] [address] Pharmacist Internal Medicine 05/24/23 documented as of this encounter
--- OUTSIDE RECORDS SUMMARY | 2025-07-20 02:34 | XMS_ITS | Encounter Summary ---
Author Organization [employer] Address 75 [facility] 7t [place] [address] Care Team Providers Care Critical Care Educator Name Role Phone Patricia Berry MD Primary Care Provider [phone] Craig Ochoa PharmD Unavailable Reason for Visit * Reason Onset Date Comments triage 08/20/2022 Encounter Details Date Type Department Care Team (Late st Contact Info) Description 08/20/2022 Telephone [facility] 230 [place] [address] Patricia Berry MD [address] [place], [place] [phone] triage Social History Tobacco Use Types Packs/Day [...] Advised to be seen by provider in [facility] and Pt agreed. Insurance is verified [...] 09/06/2025 3:45 PM EST Office Visit [facility] 230 [place] [address] Patricia Berry MD [address] [place] [address] 10/11/2025 2:30 PM EST Clinical Support [facility] 505 [place] [address] Renee Vazquez, LELE 505 [place] [address] documented as of this encounter Visit Diagnoses Not on filedocumented in this encounter Care Teams Critical Care Educator Relationship Specialty Start Date End Date Patricia Berry MD [address] [place] [address] PCP - General Family Medicine 05/11/21 Craig Ochoa, ShawnD [address] [place], [place] [address] [place] [address] Pharmacist Internal Medicine 05/24/23 documented as of this encounter
--- OUTSIDE RECORDS SUMMARY | 2025-07-20 02:34 | XMS_ITS | Encounter Summary ---
Author Organization [employer] Address 75 [facility] 7t [place] [address] Care Team Providers Care Powder Nipper Name Role Phone Patricia Berry MD Primary Care Provider Craig Ochoa PharmD Unavailable [phone] Encounter Details Date Type Department Care Team (Late Contact Info) Description 08/21/2022 Telephone [facility] [address] [place] [address] [phone] Patricia Berry MD [address] [place] [address] [phone] Social History Tobacco Use Types Packs/Day Years [...] Recorded In the last 10 days, have konstantin u been in contact with someone who was confirmed or suspected to have Coronavirus/COVID-19? No / Unsure 08/20/2022 3:47 PM EST documented as of this encounter Plan of Treatment Upcoming Encounters Date Type Department Care Team (Late Contact Info) Description 09/06/2025 3:45 PM EST Office Visit [facility] [address] [place] [address] [phone] Patricia Berry MD [address] [place] [address] [phone] 10/11/2025 2:30 PM EST Clinical Support [facility] 505 [place] [address] Renee Vazquez, RN 505 [place] [address] documented as of this encounter Visit Diagnoses Not on filedocumented in this encounter Care Teams Powder Nipper Relationship Specialty Start Date End Date Patricia Berry MD [address] [place] [address] PCP - General Family Medicine 05/11/21 Craig Ochoa, PharmD [address] [place] [address] Pharmacist Internal Medicine 05/24/23 documented as of this encounter
--- OUTSIDE RECORDS SUMMARY | 2025-07-20 02:34 | XMS_ITS | Encounter Summary ---
Author Organization [employer] Address 75 [facility] 7t [place] [address] Care Team Providers Care Industrial Welder Name Role Phone Patricia Berry MD Primary Care Provider [phone] Craig Ochoa PharmD Unavailable [phone] Reason for Visit * Reason Onset Date Comments Med Refill 05/31/2025 Encounter Details Date Type Department Care Team (Late st Contact Info) Description 05/31/2025 Telephone [facility] [address] [place] [address] Patricia Berry MD 230 [place], [place] [phone] Med Refill Social History Tobacco Use Types [...] encounter Miscellaneous Notes * Telephone Encounter - Zhegn Day - 05/31/2025 1:52 PM EDT TC from pt requesting medication refill. Medications needing refill: traMADol (Ultram) 50 MG tablet To be sent to: [facility]/pharmacy #[address] [place] [address] documented in this encounter Plan of Treatment Upcoming Encounters Date Type Department Care Team ([facility] st Contact Info) Description 09/06/2025 3:45 PM EST Office Visit [facility] [address] [place] [address] Patricia Berry MD [address] [place] [address] 10/11/2025 2:30 PM EST Clinical Support [facility] 505 [place] [address] Renee Vazquez, RN 505 [place] [address] documented as of this encounter Goals Goal [...] documented as of this encounter Care Teams Industrial Welder Relationship Specialty Start Date End Date Patricia Berry MD 230 [place] [address] PCP - General Family Medicine 05/11/21 Craig Ochoa, PharmD [address] [place] [address] Pharmacist Internal Medicine 05/24/23 documented as of this encounter
--- OUTSIDE RECORDS SUMMARY | 2025-07-20 02:34 | XMS_ITS | Encounter Summary ---
Author Organization [employer] Address 75 [facility] 7t [place] [address] Care Team Providers Care Child Support Investigator Name Role Phone Patricia Berry MD Primary Care Provider [phone] Craig Ochoa PharmD Unavailable [phone] Reason for Visit * Reason Comments Med Refill Encounter Details Date Type Department Care Team ([facility] st Contact Info) Description 08/07/2023 Refill [facility] 230 [place], [place] [phone] Patricia Berry MD 230 [place], [place] [phone] Mood disorder (CMS/HCC); Chronic pain syndrome Social [...] Description 09/06/2025 3:45 PM EST Office Visit [facility] 230 [place] [address] Patricia Berry MD [address] [place] [address] 10/11/2025 2:30 PM EST Clinical Support [facility] 505 [place] [address] Renee Vazquez, RN 505 [place] [address] documented as of this encounter Goals Goal Patient Goal Type Associated Problems Recent Progress Patient-Stated? Author Blood Pressure < 140/90 Blood Pressure 110/72( 025 2:15 PM EDT) No Craig Ochoa, PharmKassidy documented as of this encounter Visit Diagnoses Diagnosis Mood disorder (CMS/HCC) Unspecified episodic mood disorder Chronic pain syndrome documented in this encounter Care Teams Child Support Investigator Relationship Specialty Start Date End Date Patricia Berry MD [address] [place] [address] PCP - General Family Medicine 05/11/21 Craig Ochoa, PharmD [address] [place] [address] Pharmacist Internal Medicine 05/24/23 documented as of this encounter
--- OUTSIDE RECORDS SUMMARY | 2025-07-20 02:34 | XMS_ITS | Encounter Summary ---
Author Organization [employer] Address [address] [facility] 7t [place] [address] Care Team Providers Care Behavioral Modification Assistant Name Role Phone Patricia Berry MD Primary Care Provider [phone] Craig Ochoa PharmD Unavailable [phone] Reason for Visit * Reason Onset Date Comments Med Refill 04/01/2025 Encounter Details Date Type Department Care Team (Late st Contact Info) Description 04/01/[address] [facility] MEDICINE [address] [place], [place] [phone] Patricia Berry MD [address] [place], [place] [phone] Med Refill Social History Tobacco Use Types [...] * Telephone Encounter - Shemar Navarrete - 04/01/2025 12:44 PM EDT TC from pt requesting medication refill. Medications needing refill : traMADol (Ultram) 50 MG tablet To be sent to: [facility]/pharmacy #[id number] [place] [address] - [address] [place] [address] documented in this encounter Plan of Treatment Upcoming Encounters Date Type Department Care Team (Late st Contact Info) Description 09/06/2025 3:45 PM EST Office Visit [facility] MEDICINE [address] [place] [address] Patricia Berry MD 230 [place] [address] 10/11/2025 2:30 PM EST Clinical Support [facility] CHC MED & PEDS 505 [place] [address] Renee Vazquez, RN 505 [place] [address] documented as of this encounter Goals Goal [...] documented as of this encounter Care Teams Behavioral Modification Assistant Relationship Specialty Start Date End Date Patricia Berry MD [address] [place] [address] PCP - General Family Medicine 05/11/21 Craig Ochoa, PharmD [address] [place] [address] Pharmacist Internal Medicine 05/24/23 documented as of this encounter
--- OUTSIDE RECORDS SUMMARY | 2025-07-20 02:34 | XMS_ITS | Encounter Summary ---
Author Organization [employer] Address [address] [facility] 7t [place] [address] Care Team Providers Care Showroom Sales Consultant Name Role Phone Patricia Berry MD Primary Care Provider [phone] Craig Ochoa PharmD Unavailable [phone] Reason for Visit * Reason Comments Med Refill Encounter Details Date Type Department Care Team (Late st Contact Info) Description 08/04/2023 Refill [facility] 230 [place] [address] Moses Tejada, BENNETT Acute mucoid otitis media [...] housing situation today? I have srikanthkostas kaplan 05/28/[address] you [...] Description 09/06/2025 3:45 PM EST Office Visit [facility] MEDICINE [address] [place] [address] Patricia Berry MD 230 [place] [address] 10/11/2025 2:30 PM EST Clinical Support [facility] CHC MED & PEDS 505 [place], [place] [phone] Renee Vazquez, LELE 505 [place] [address] documented as of this encounter Goals Goal Patient Goal Type Associated Problems Recent Progress Patient-Stated? Author Blood Pressure < 140/90 Blood Pressure 110/72( 025 2:15 PM EDT) No Craig Ochoa, Caroline documented as of this encounter Visit Diagnoses Diagnosis Acute mucoid otitis media of both ears documented in this encounter Care Teams Showroom Sales Consultant Relationship Specialty Start Date End Date Patricia Berry MD [address] [place] [address] PCP - General Family Medicine 05/11/21 Craig Ochoa, ShawnD [address] [place] [address] Pharmacist Internal Medicine 05/24/23 documented as of this encounter
--- OUTSIDE RECORDS SUMMARY | 2025-07-20 02:34 | XMS_ITS | Encounter Summary ---
Author Organization [employer] Address [address] [facility] 7t [place] [address] Care Team Providers Care Art History Professor Name Role Phone Patricia Berry MD Primary Care Provider [phone] Craig Ochoa PharmD Unavailable [phone] Reason for Visit * Reason Onset Date Comments Medication Question 04/01/2025 Encounter Details Date Type Department Care Team ([facility] st Contact Info) Description 04/01/2025 Telephone [facility] MEDICINE [address] [place], [place] [phone] Patricia Berry MD [address] [place], [place] [phone] Medication Question Social History Tobacco Use Types Packs/Day Years [...] encounter Miscellaneous Notes * Telephone Encounter - Anamaria Escobar RN - 04/05/2025 2:31 PM EDT Return call placed to the pt who called in to check on the status of GLP1 medication. Pt states that at [facility] on 03/09/2025 PCP could not get approval for the Zepbound by [employer] insurance and was going to initiate a new PA or try an alternative. The pt would like to know the next step and if PCP is goingto prescribe a new GLP1 or if the pt should be referred to weight management. Pt advised that this information will be forwarded to PCP for review and advisement. * Telephone Encounter - Shemar Navarrete - 04/01/2025 12:45 PM EDT Tc from pt requesting a call back to discuss Zepbound prescription Contact Pt at [phone] documented in this encounter Plan of Treatment Upcoming Encounters Date Type Department Care Team (Late st Contact Info) Description 09/06/2025 3:45 PM EST Office Visit [facility] MEDICINE [address] [place] [address] Patricia Berry MD [address] [place], [place] 10/11/2025 2:30 PM EST Clinical Support [facility] CHC MED & PEDS 505 [place], [place] [phone] Renee Vazquez, RN 505 [place], [place] [phone] documented as of this encounter Goals Goal [...] documented as of this encounter Care Teams Art History Professor Relationship Specialty Start Date End Date Patricia Berry MD [address] [place] [address] PCP - General Family Medicine 05/11/21 Craig Ochoa, PharmD [address] [place] [address] Pharmacist Internal Medicine 05/24/23 documented as of this encounter
--- OUTSIDE RECORDS SUMMARY | 2025-07-20 02:34 | XMS_ITS | Continuity of Care Document ---
Author Organization [facility] Address [address] [place] [phone] Care Team Providers Care Owner Consulting Engineer Name Role Phone HIM [facility] OTHER Unavailable Primary Care Provider [phone] Assessment Encounter Date Assessment Date Assessment LastModified by Organization Details LastModified Time 06/29/2025 06/29/2025 I provided real -time medical direction via phone for this encounter, and was available for additional phone based assistance as needed. I have reviewed and agree with the Assessment and Plan as documented by the Sample Sawyer. We discussed the diagnostic uncertainty of home visits and the risk associated with this. In this case the patient and I felt this to be an acceptable and reasonable amount of risk given the benefit of avoiding an ED visit. Advised if headache worsens or he develops any new neurosymptoms will need immediate ED evaluation and imaging/treatmen t. The patient given the opportunity to ask questions. Advised if develops CP/severe SOB/turning blue/uncontrolle d n/v/d or black/bloody emesis or stool/ AMS/ syncope/ hi fever /worsening severe headache / focal weakness/numbnes s acute visual or speech change to go into the ER /to call 911- he verbalized understanding of instructions to the medic [email or web address] Not available 06/29/2025 23:38:36 Plan of Treatment Reminders Order Date Submit Date Provider Last Modified By Organization Details Last Modified Time Details Appointments None recorded. Lab rapid flu (A+B) 2024 025 [facility], [address] [place] [address], [id number] 21:53:55 rapid SARS CoV 2 Ag, QL IA, respiratory specimen 2024 025 [facility], [address] [place] [address], [id number] 21:54:16 Referral None recorded. Procedures None recorded. Surgeries None recorded. Imaging None recorded. Medication Orders ketorolac 30 mg/mL injection solution 2024 025 [email or web address] [facility]/Pharmacy #[id number], [address] [facility], [place], [address], 10:59:01 Patient TargetsNo targets recorded. Patient InstructionsNo instructions recorded. Reason for Referral None Reported. Results Created Date Observation Date Name Description Value Unit Range Abnormal Flag Note LastModifiedBy Organization Detail LastModifiedTime Result Notes None recorded. Medical Equipment None Reported. Allergies Allergen ID Allergen Name Allergen Category Reaction Reaction Severity Criticality Documentation Date Start Date Code Code System Note Provider Name and Address Organization Details Recorded Time celecoxib medicatio n Not available Not available Not available 06/29/2025 23192 7 RxNorm gets heada cheryl Melissa Erwin MD [address] [place] [address],[address], [place], [phone] 0[facility] - [facility] 10:56:56 636 egg extract food,medi cation Not available Not available Not available 01/30/2022 69290 15 RxNorm Not Available [facility] - production 15:47:23 Medications Name Sig Start [...] propionate 50 mcg/actuatio n nasal spray,suspen bradly Mulberry 1 spray twice a day by intranasal [...] t Available Vitals Date Recorded Oxygen saturation Heart rate Body temperature Respiratory rate Body weight Body height Systolic And Diastolic Provider Name and Address Organization Details Last Updated DateTime 5 95 % 70 /min 98.3 [degF] 18 /min 497699. 096 g 177.8 cm 121/79 mm[Hg] Not Available [facility] - production 5 10:54:34 Social History None recorded. Functional Status None recorded. Mental Status None recorded. Family History Nothing Reported. Medical History No medical history recorded. Past Encounters Encounter ID Performer Location Encounter Start Date Encounter Closed Date Diagnosis/Indication Diagnosis SNOMED-CT Code Diagnosis ICD10 Code Diagnosis IMO Codes Diagnosis Note [id number] Melissa Erwin MD [facility] ED Medical [facility] [address] [place] [address] 06/29/2025 10:54:29 06/30/2025 10:36:43 Headache 75849503 R51.9 [id number] ? tension REYES-Patient has had ketorolac before with good relief for upper back pain/denie s any history of GI bleeding or CKD. Risks benefits explained by the medic. Patient has no history of GI bleed, anemia or CKD/he is not anticoagul ated, he is normotensi ve. On 03/09/2025 hemoglobin was 13.5 with a BUN of 13 and creatinine 1.01 which are wnl.medic performed rapid viral testing then called- rapid viral testing negative advised ice / wrapped in a towel alternatin g w/ gentle heat q 3-4H w/a to affected areaTyleno l 2x 650mg 3 x per day given stated weight-hol d p.o. NSAIDs for today. Health Concerns Section Related Observation LastModified by Organization Detai ls LastModified Time None Recorded Concern Status LastModified by Organization Details LastModified Time None Recorded Payers Encounter Date Sequence Insurance Name Policy Number Policy Leiva Covered Member ID Leiva Member ID Guarantor Name 06/29/2025 1 [facility] - DOS ON OR AFTER 2022 - DUAL ELIGIBLE - CARE HOME OPTIONS AND ONE CARE (MEDICARE REPLACEMENT/ADV ANTAGE - HMO) Brady Dale [id number] Brady Dale Notes Date Note Type Note Provider Name and Address Organization Details Recorded Time 06/29/2025 text/html ROS as noted in the HPI CRC Nurse Triage Notes (Fartun Canales): Reason For Request: headache Denies: Worst Headache of life New onset of vision loss Sudden onset -unilateral weakness/gait disturbance Fall with head strike and altered LOC New onset of Slurred speech or difficulty finding words Sudden Mental status changes Head pain with fever chills and neck pain Seizure activity Chief Complaints: Headache PMH: Hypertension, COPD/Asthma, Chronic Pain PMH Reviewed at 06/28/2025 - 21:00 (ET) Allergies Reviewed at 06/28/2025 - 21:00 (ET) Comments: 54 y.o male complains of Headache Patient calling in to place a referral Patient who reports a headache since this morning Patient reports pounding to his occipital region, now on the right side of his head Denies any dizziness, no blurry vision- no nausea or vomiting +light sensitivity, no noise sensitivity Denies any weakness, numbness or tingling He took Motrin this morning and extra strength tylenol this afternoon with no relief, has been sitting in dim lighting Denies any kidney disease, does not take any blood thinner 06/28 9:15p- out reach to patient as we cannot accommodate a visit this evening, he is agreeable to a visit tomorrow 06/29- I provided information on the mobile health provider response time and advised the patient and/or caregiver to monitor reported signs and symptoms. I discussed the warning signs of when to seek emergency care. Sample Sawyer Organization Information for Bess [facility]arijesus [facility] Business Legal Name: [employer]. Address: [address] [place] [address], Car Shunter: Catalino Ureña MD CLIA No.: [id number] Sample Sawyer POC Test Results from Bess Antonia Mcgregor [facility] Rapid COVID antigen (10:47:12) COVID: - Attachments uploaded as part of this test result can be found under Documents section. Rapid influenza antigen (10:47:13) Flu: - .................... .................... .................... .................... .................... .................... .................... . Sample Sawyer Note From Antonia Kellogg: SC6 responds to the listed address for a 54 yom w/ a c/c of REYES. Upon arrival on scene, pt is awaiting [facility] at the front door to his well kept home. He is smiling on approach and welcomes [facility] inside. Pt is generally well-appearing and NAD is present. He walks unencumbered through the living area and sits on the sofa for evaluation. He is moving all extremities in a smooth and coordinated manner and he is answering all questions using a linear and logical thought pattern. Pt is endorsing a bad REYES that started yesterday morning upon waking. He says it started at the base of his occiput and wrapped around to the front of his head. He took two Motrin around 0630 w/ no relief. Yesterday afternoon he took two 650mg Tylenol and again had no relief. He had an eye appointment in the afternoon and had his eyes dilated. He continued to have his REYES during the appointment so he was evaluated for possible ocular involvement and nothing was found. He was sent home w/ dark glasses. Pt endorses light and noise sensitivity yesterday afternoon and had some relief w/ a dark and quiet environment. He called late in the evening for an [facility] visit, but he visit could not be accommodated until today. Pt says his head is better today, but he is still having tension and pain in the back of his head. When he bends over he feels the pounding he had yesterday to a lesser extent. He denies cp, sob, n/v/d, fevers/chills, abd pain, or head trauma. Pt is not anticoagulated and he does not have any known kidney issues or hx of GI bleeding. Pt further denies visual disturbances, dizziness/lightheade dness, confusion, slurred speech, or loss of muscle control or coordination. Ddx: migraine, tension reyes, hypertensive emergency, COVID/flu [facility] performs a FAST exam and gross cranial nerve assessment and pt is neurologically intact. Pt is swabbed for COVID/flu, vital signs are obtained, and pt is assessed further. COVID/flu are negative and pt is normotensive, afebrile, and not hypoxic. Head is atraumatic and normocephalic. Pt has muscular tension and tenderness paraspinous at the occiput and down his cervical spine. Neck is supple and trachea is midline. Pupils are PERRL, no nystagmus is noted, and extra ocular movements are intact. Lung sounds are clear and abdomen is soft and nontender w/ no guarding, distension, or pulsating masses noted. CMS is intact in all four extremities. Pt answers all questions and follows all commands. [facility] contacts [facility] and discusses the above. [facility] orders 30mg toradol IM for pt after confirming allergies and recommends alternating heat and cold for pain relief, no more NSAIDS for today, and continued Tylenol 3x/day as needed. [facility] administers 30mg toradol IM in the R deltoid using aseptic technique. Pt is advised to seek emergency care if he develops a worsening REYES, high fever, any neuro deficits, syncope, or black/bloody stools. Pt is left in stable condition. [facility] is clear. Report completed by SHAHID Kellogg [id number]. [facility] Lab Orders: rapid flu (A+B): Performed rapid SARS CoV 2 Ag, QL IA, respiratory specimen: Performed [facility] Medication Orders: ketorolac 30 mg/mL injection solution: Administered Comment: R deltoid .................... .................... .................... .................... .................... .................... .................... . [facility] Consulted: Melissa Erwin .................... .................... .................... .................... .................... .................... .................... . Disposition: Fulfilled Melissa Erwin MD [address] [facility],[address], [place], [address], RIZWAN - JOSÉ, MATHEW 06/29/2025 23:38:47
--- OUTSIDE RECORDS SUMMARY | 2025-07-20 02:34 | XMS_ITS | Encounter Summary ---
Author Organization [employer] Address [address] [facility] 7t [place] [address] Care Team Providers Care Commercial Food Instructor Name Role Phone Patricia Berry MD Primary Care Provider Craig Ochoa PharmD Unavailable [phone] Reason for Visit * Reason Comments Med Refill Encounter Details Date Type Department Care Team (Late st Contact Info) Description 09/05/2023 Refill [facility] [address] [place] [address] Moses Tejada, BENNETT Acute mucoid otitis media [...] Description 09/06/2025 3:45 PM EST Office Visit [facility] MEDICINE [address] [place] [address] Patricia Berry MD 230 [place] [address] 10/11/2025 2:30 PM EST Clinical Support [facility] CH[facility] MED & PEDS [address] [place], [place] [phone] Renee Vazquez, LELE [address] [place] [address] documented as of this encounter Goals Goal Patient Goal Type Associated Problems Recent Progress Patient-Stated? Author Blood Pressure < 140/90 Blood Pressure 110/72( 025 2:15 PM EDT) No Craig Ochoa, Caroline documented as of this encounter Visit Diagnoses Diagnosis Acute mucoid otitis media of both ears documented in this encounter Care Teams Commercial Food Instructor Relationship Specialty Start Date End Date Patricia Berry MD [address] [place] [address] PCP - General Family Medicine 05/11/21 Craig Ochoa, ShawnD [address] [place] [address] Pharmacist Internal Medicine 05/24/23 documented as of this encounter
--- OUTSIDE RECORDS SUMMARY | 2025-07-20 02:34 | XMS_ITS | Encounter Summary ---
Author Organization [employer] Address [address] [facility] 7t [place] [address] Care Team Providers Care Stump Blower Name Role Phone Patricia Berry MD Primary Care Provider [phone] Craig Ochoa PharmD Unavailable [phone] Reason for Visit * Reason Comments Med Change Request Encounter Details Date Type Department Care Team ([facility] st Contact Info) Description 04/12/2025 Refill [facility] MEDICINE 230 [place], [place] [phone] Lay Cristina, ANP 230 [place] [address] Social History Tobacco Use Types Packs/Day Years [...] 09/06/2025 3:45 PM EST Office Visit [facility] MEDICINE [address] [place] [address] Patricia Berry MD [address] [place] [address] 10/11/2025 2:30 PM EST Clinical Support [facility] CHC MED & PEDS [address] [place] [address] Renee Vazquez, LELE [address] [place] [address] documented as of this encounter Goals Goal [...] documented as of this encounter Care Teams Stump Blower Relationship Specialty Start Date End Date Patricia Berry MD [address] [place] [address] PCP - General Family Medicine 05/11/21 Craig Ochoa, Caroline [address] [place] [address] Pharmacist Internal Medicine 05/24/23 documented as of this encounter
--- OUTSIDE RECORDS SUMMARY | 2025-07-20 02:34 | XMS_ITS | Encounter Summary ---
Author Organization [employer] Address [address] [facility] 7t [place] [address] Care Team Providers Care Baker Bread Name Role Phone Patricia Berry MD Primary Care Provider [phone] Craig Ochoa PharmD Unavailable [phone] Reason for Visit * Reason Onset Date Comments Referral 04/20/2025 Encounter Details Date Type Department Care Team (Late st Contact Info) Description 04/20/2025 Telephone [facility] MEDICINE [address] [place] [address] Patricia Berry MD 230 [place], [place] [phone] Referral Social History Tobacco Use Types Packs/Day Years [...] encounter Miscellaneous Notes * Telephone Encounter - Natalia Gill RN - 04/20/2025 3:55 PM EDT Called [facility] Weight Management clinic at [phone] to inquire about need for referral. Per [place], referrals required if pt not currently seeing [facility] providers. Called pt who states that he went to family member's appt at this clinic recently and pt is also interested in referral there for assistance in accessing GLP-1. Advised will send message to PCP, pt verbalized understanding. * Telephone Encounter - Ashlee Lindo - 04/20/2025 3:53 PM EDT Tc from pt requesting a referral fro weight loss in [address] [place] [address] Contact pt at [phone] documented in this encounter Plan of Treatment Upcoming Encounters Date Type Department Care Team (Late st Contact Info) Description 09/06/2025 3:45 PM EST Office Visit [facility] MEDICINE [address] [place] [address] Patricia Berry MD [address] [place], [place] 10/11/2025 2:30 PM EST Clinical Support [facility] CHC MED & PEDS 505 [place], [place] [phone] Renee Vazquez, RN 505 [place] [address] documented as of this encounter Goals Goal [...] documented as of this encounter Care Teams Baker Bread Relationship Specialty Start Date End Date Patricia Berry MD 230 [place] [address] PCP - General Family Medicine 05/11/21 Craig Ochoa, PharmD [address] [place] [address] Pharmacist Internal Medicine 05/24/23 documented as of this encounter
--- OUTSIDE RECORDS SUMMARY | 2025-07-20 02:35 | XMS_ITS | Encounter Summary ---
Author Organization [employer] Address 75 [facility] 7t [place] [address] Care Team Providers Care Events And Promotions Assistant Name Role Phone Patricia Berry MD Primary Care Provider [phone] Craig Ochoa PharmD Unavailable [phone] Reason for Visit * Reason Onset Date Comments Appointment Request 10/21/2024 Encounter Details Date Type Department Care Team ([facility] st Contact Info) Description 10/21/2024 Telephone [facility] 230 [place], [place] [phone] Patricia Berry MD 230 [place], [place] [phone] Appointment Request Social History Tobacco Use Types [...] R/s Appt from 10/21/24. Contact pt at [phone] documented in this encounter Plan of Treatment Upcoming Encounters Date Type Department Care Team (Late st Contact Info) Description 09/06/2025 3:45 PM EST Office Visit [facility] 230 [place] [address] Patricia Berry MD 230 [place] [address] 10/11/2025 2:30 PM EST Clinical Support [facility] 505 [place], [place] [phone] Renee Vazquez, LELE 505 [place] [address] documented as of this encounter Goals Goal Patient Goal Type Associated Problems Recent Progress Patient-Stated? Author Blood Pressure < 140/90 Blood Pressure 110/72( 025 2:15 PM EDT) No Craig cOhoa, PharmD documented as of this encounter Visit Diagnoses Not on filedocumented in this encounter Additional Health Concerns Assessment Noted Time PHQ-9 Depression Total Score: 0 11/27/19 24 10:58 AM EDT documented as of this encounter Care Teams Events And Promotions Assistant Relationship Specialty Start Date End Date Patricia Berry MD 230 [place] [address] PCP - General Family Medicine 05/11/21 Craig Ochoa, PharmD 230 [place] [address] Pharmacist Internal Medicine 05/24/23 documented as of this encounter
--- OUTSIDE RECORDS SUMMARY | 2025-07-20 02:35 | XMS_ITS | Encounter Summary ---
Author Organization [employer] Address 75 [facility] 7t [place] [address] [address] Care [address] Project Manager Name Role Phone Patricia Berry MD Primary Care Provider [phone] Craig Ochoa PharmD Unavailable [phone] Reason for Visit * Reason Onset Date Comments FYI 04/06/2024 Encounter Details Date Type Department Care Team (Late st Contact Info) Description 04/06/2024 Telephone [facility] 230 [place], [place] [phone] Patricia Berry MD 230 [place], [place] [phone] FYI Social History Tobacco Use Types Packs/Day Years [...] Description 09/06/2025 3:45 PM EST Office Visit [facility] 230 [place] [address] Patricia Berry MD 230 [place] [address] 10/11/2025 2:30 PM EST Clinical Support [facility] 505 [place] [address] Renee Vazquez, LELE 505 [place] [address] documented as of this encounter Goals Goal Patient Goal Type Associated Problems Recent Progress Patient-Stated? Author Blood Pressure < 140/90 Blood Pressure 110/72( 025 2:15 PM EDT) No Craig Ochoa, PharmD documented as of this encounter Visit Diagnoses Not on filedocumented in this encounter Additional Health Concerns Assessment Noted Time PHQ-9 Depression Total Score: 0 04/17/20 24 10:58 AM EDT documented as of this encounter Care Teams Rd Project Manager Relationship Specialty Start Date End Date Patricia Berry MD 230 [place] [address] PCP - General Family Medicine 05/11/21 Craig Ochoa, Caroline 230 [place] [address] Pharmacist Internal Medicine 05/24/23 documented as of this encounter
--- OUTSIDE RECORDS SUMMARY | 2025-07-20 02:35 | XMS_ITS | Encounter Summary ---
Author Organization [employer] Address 75 [facility] 7t [place] [address] Care Team Providers Care Linting Machine Operator Name Role Phone Patricia Berry MD Primary Care Provider [phone] Craig Ochoa PharmD Unavailable [phone] Reason for Visit * Reason Onset Date Comments Med Refill 07/19/2025 Encounter Details Date Type Department Care Team (Late st Contact Info) Description 07/19/2025 Refill [facility]EDS 505 [place] [address] Renee Vazquez, RN 505 [place] [address] Chronic bilateral low back pain, unspecified whether [...] Description 09/06/2025 3:45 PM EST Office Visit [facility] 230 [place] [address] Patricia Berry MD 230 [place] [address] 10/11/2025 2:30 PM EST Clinical Support [facility] 505 [place] [address] Renee Vazquez, RN 505 [place] [address] documented as of this encounter Goals Goal Patient Goal Type Associated Problems Recent Progress Patient-Stated? Author Blood Pressure < 140/90 Blood Pressure 110/72( 025 2:15 PM EDT) No Craig Ochoa, ShawnD documented as of this encounter Visit Diagnoses Diagnosis Chronic bilateral low back pain, unspecified whether sciatica present Chronic pain of left knee documented in this encounter Additional Health Concerns Assessment Noted Time PHQ-9 Depression Total Score: 10 025 4:22 PM EDT documented as of this encounter Care Teams Linting Machine Operator Relationship Specialty Start Date End Date Patricia Berry MD 230 [place] [address] PCP - General Family Medicine 05/11/21 Craig Ochoa, Caroline 230 [place] [address] Pharmacist Internal Medicine 05/24/23 documented as of this encounter
--- OUTSIDE RECORDS SUMMARY | 2025-07-20 02:35 | XMS_ITS | Encounter Summary ---
Author Organization [employer] Address 75 [facility] 7t [place] [address] Care Team Providers Care Returned Goods Receiving Clerk Name Role Phone Patricia Berry MD Primary Care Provider [phone] Craig Ochoa PharmD Unavailable [phone] Reason for Visit * Reason Onset Date Comments Med Refill 04/06/2024 Encounter Details Date Type Department Care Team (Late st Contact Info) Description 04/06/2024 Telephone [facility] 230 [place], [place] [phone] Patricia Berry MD 230 [place], [place] [phone] Med Refill Social History Tobacco Use Types [...] 50 MG tablet To be sent to: [facility]/pharmacy #[address] [place] [address] documented in this encounter Plan of Treatment Upcoming Encounters Date Type Department Care Team (Late st Contact Info) Description 09/06/2025 3:45 PM EST Office Visit [facility] 230 [place] [address] Patricia Berry MD 230 [place] [address] 10/11/2025 2:30 PM EST Clinical Support [facility]EDS 505 [place], [place] [phone] Renee Vazquez, LELE 505 [place] [address] documented as of this encounter Goals Goal [...] documented as of this encounter Care Teams Returned Goods Receiving Clerk Relationship Specialty Start Date End Date Patricia Berry MD 230 [place] [address] PCP - General Family Medicine 05/11/21 Craig Ochoa, Caroline 230 [place] [address] Pharmacist Internal Medicine 05/24/23 documented as of this encounter
--- OUTSIDE RECORDS SUMMARY | 2025-07-20 02:35 | XMS_ITS | Encounter Summary ---
Author Organization [employer] Address 75 [facility] 7t [place] [address] Care Team Providers Care Edge Inker Heels Name Role Phone Patricia Berry MD Primary Care Provider [phone] Craig Ochoa PharmD Unavailable [phone] Reason for Visit * Reason Onset Date Comments Med Refill 07/01/2025 Encounter Details Date Type Department Care Team (Late st Contact Info) Description 07/01/2025 Telephone [facility] 230 [place] [address] Patricia Berry MD 230 [place], [place] [phone] Med Refill Social History Tobacco Use Types [...] encounter Miscellaneous Notes * Telephone Encounter - Zheng Day - 07/01/2025 11:53 AM EST TC from pt requesting medication refill. Medications needing refill: traMADol (Ultram) 50 MG tablet To be sent to: [facility]/pharmacy #[address] [place] [address] documented in this encounter Plan of Treatment Upcoming Encounters Date Type Department Care Team (Late st Contact Info) Description 09/06/2025 3:45 PM EST Office Visit [facility] 230 [place] [address] Patricia Berry MD 230 [place] [address] 10/11/2025 2:30 PM EST Clinical Support [facility] 505 [place], [place] [phone] Renee Vazquez RN 505 [place] [address] documented as of this encounter Goals Goal [...] documented as of this encounter Care Teams Edge Inker Heels Relationship Specialty Start Date End Date Patricia Berry MD 230 [place] [address] PCP - General Family Medicine 05/11/21 Craig Ochoa, PharmD [address] [place] [address] Pharmacist Internal Medicine 05/24/23 documented as of this encounter
--- OUTSIDE RECORDS SUMMARY | 2025-07-20 02:35 | XMS_ITS | Encounter Summary ---
Author Organization [employer] Address 75 [facility] 7t [place] [address] Care Team Providers Care Pump Attendant Name Role Phone Patricia Berry MD Primary Care Provider [phone] Craig Ochoa PharmD Unavailable [phone] Reason for Visit * Reason Onset Date Comments Med Refill 06/29/2024 Encounter Details Date Type Department Care Team (Late st Contact Info) Description 06/29/2024 Telephone [facility] 230 [place] [address] Patricia Berry MD 230 [place], [place] [phone] Med Refill Social History Tobacco Use Types [...] the past 12 months, has t he [employer], gas, oil or water company threatened to [...] 50 MG tablet To be sent to: [facility]/pharmacy #[id number] documented in this encounter Plan of Treatment Upcoming Encounters Date Type Department Care Team (Late st Contact Info) Description 09/06/2025 3:45 PM EST Office Visit [facility] 230 [place] [address] Patricia Berry MD 230 [place] [address] 10/11/2025 2:30 PM EST Clinical Support [facility] 505 [place] [address] Renee Vazquez, RN 505 [place] [address] documented as of this encounter Goals Goal Patient Goal Type Associated Problems Recent Progress Patient-Stated? Author Blood Pressure < 140/90 Blood Pressure 110/72( 025 2:15 PM EDT) No Carig Ochoa, Caroline documented as of this encounter Visit Diagnoses Not on filedocumented in this encounter Additional Health Concerns Assessment Noted Time PHQ-9 Depression Total Score: 0 11/27/19 24 10:58 AM EDT documented as of this encounter Care Teams Pump Attendant Relationship Specialty Start Date End Date Patricia Berry MD 230 [place] [address] PCP - General Family Medicine 05/11/21 Craig Ochoa, ShawnD 230 [place] [address] Pharmacist Internal Medicine 05/24/23 documented as of this encounter
--- OUTSIDE RECORDS SUMMARY | 2025-07-20 02:35 | XMS_ITS | Encounter Summary ---
Author Organization [employer] Address 75 [facility] 7t [place] [address] Care Team Providers Care Bunch Breaker Name Role Phone Patricia Berry MD Primary Care Provider [phone] Craig Ochoa PharmD Unavailable [phone] Encounter Details Date Type Department Care Team (Late st Contact Info) Description 07/19/2025 Orders Only [facility] External Provider, [facility] Social History Tobacco Use Types Packs/Day Years [...] Office Visit [facility] MEDICINE 230 [place] [address] Patricia Berry MD 230 [place] [address] 10/11/2025 2:30 PM EST Clinical Support [facility]EDS 505 [place], [place] [phone] Renee Vazquez, RN 505 [place] [address] documented as of this encounter Goals Goal Patient Goal Type Associated Problems Recent Progress Patient-Stated? Author Blood Pressure < 140/90 Blood Pressure 110/72( 025 2:15 PM EDT) No Craig Ochoa, Caroline documented as of this encounter Procedures Procedure Name Priority Date/Time Associated Diagnosis Comments XR KNEE 1-2 VIEWS RIGHT Routine 07/20/2025 12:51 AM EST documented in this encounter Results * XR Knee 1-2 Views Right (07/20/2025 12:51 AM EST) Anatomical Region Laterality Modality Lower Extremities, Knee Right Radiogra phic Imaging 07/20/2025 12:5 1 AM EST Narrative 07/20/2025 12:53 AM EST [address] [address] XRay Report Signed Patient: Brady Dale Jr MR#: [id number] 95 : 1970 Acct:[id number] Age/Sex: 54 / M ADM Date: 07/19/25 Loc: HO.ED Attending Dr: Ordering Physician: Julia Salgado DO Date of Service: 07/20/25 Procedure(s): XR knee RT 2V Accession Number(s): [id number] cc: Julia Salgado DO; Patricia Berry MD [...] signed by Rony Valdez MD in OV> 07/20/25 0052 DD/ 0051 TD/TT: 07/20/25 005 Chief Controller Center: Procedure Note Donotsaydainterpreter, Image - 07/20/[address] [address] XRay Report Signed Patient: Brady Dale JrMR#: [id number] 95 : 1970Acct:[id number] Age/Sex: 54 / MADM Date: 07/19/25 Loc: HO.ED Attending Dr: Ordering Physician: Julia Salgado DO Date of Service: 07/20/25 Procedure(s): XR knee RT 2V Accession Number(s): [id number] cc: Julia Salgado DO; Patricia Berry MD [...] MD in OV> 07/20/2551 DD/ TD/TT: 07/20/2550 Chief Controller Center: [facility] External Provider IMG XR PROCEDURES Final Result documented in this encounter Visit Diagnoses Not on filedocumented in this encounter Additional Health Concerns Assessment Noted Time PHQ-9 Depression Total Score: 10 12/08/ 025 4:22 PM EDT documented as of this encounter Care Teams Bunch Breaker Relationship Specialty Start Date End Date Patricia Berry MD 230 [place] [address] PCP - General Family Medicine 05/11/21 Craig Ochoa, Caroline 230 [place] [address] Pharmacist Internal Medicine 05/24/23 documented as of this encounter
--- OUTSIDE RECORDS SUMMARY | 2025-07-20 02:35 | XMS_ITS | Encounter Summary ---
Author Organization [employer] Address 75 [facility] 7t [place] [address] Care Team Providers Care Social Services Assistant Name Role Phone Patricia Berry MD Primary Care Provider [phone] Craig Ochoa PharmD Unavailable [phone] Reason for Visit * Reason Onset Date Comments Med Refill 04/09/2023 Encounter Details Date Type Department Care Team (Late st Contact Info) Description 04/09/2023 Telephone [facility] 230 [place], [place] [phone] Patricia Berry MD 230 [place], [place] [phone] Med Refill Social History Tobacco Use Types [...] Miscellaneous Notes * Telephone Encounter - Ashwini Hart - 04/09/2023 1:33 PM EDT Tc from pt requesting medication refill on traMADol (Ultram) 50 MG tablet documented in this encounter Plan of Treatment Upcoming Encounters Date Type Department Care Team (Late st Contact Info) Description 09/06/2025 3:45 PM EST Office Visit [facility] 230 [place] [address] Patricia Berry MD 230 [place] [address] 10/11/2025 2:30 PM EST Clinical Support [facility] MED & PEDS 505 [place], [place] [phone] Renee Vazquez, RN 505 [place], [place] [phone] documented as of this encounter Visit Diagnoses Not on filedocumented in this encounter Care Teams Social Services Assistant Relationship Specialty Start Date End Date Patricia Berry MD [address] [place] [address] [phone] PCP - General Family Medicine 05/11/21 Craig Ochoa, PharmD [address] [place] [phone] Pharmacist Internal Medicine 05/24/23 documented as of this encounter
--- OUTSIDE RECORDS SUMMARY | 2025-07-20 02:35 | XMS_ITS | Encounter Summary ---
Author Organization [employer] Address 75 [facility] 7t [place] [address] Care Team Providers Care Backend Java Developer Name Role Phone Patricia Berry MD Primary Care Provider [phone] Craig Ochoa PharmD Unavailable Reason for Visit * Reason Onset Date Comments Med Refill 12/30/2024 Encounter Details Date Type Department Care Team (Late st Contact Info) Description 12/30/2024 Telephone [facility] 230 [place], [place] [phone] Patricia Berry MD 230 [place], [place] [phone] Med Refill Social History Tobacco Use Types [...] encounter Miscellaneous Notes * Telephone Encounter - Stephanie Domínguez - 12/30/2024 1:03 PM EDT TC from pt requesting medication refill. Medications needing refill : oxyCODONE (Roxicodone) 5 MG immediate release tablet To be sent to: [facility]/pharmacy #[id number] [place] [address] - [address] [place] [address] documented in this encounter Plan of Treatment Upcoming Encounters Date Type Department Care Team (Late st Contact Info) Description 09/06/2025 3:45 PM EST Office Visit [facility] 230 [place], [place] [phone] Patricia Berry MD 230 [place] [address] 10/11/2025 2:30 PM EST Clinical Support [facility] 505 [place], [place] [phone] Renee Vazquez, RN 505 [place] [address] documented as of this encounter Goals Goal [...] documented as of this encounter Care Teams Backend Java Developer Relationship Specialty Start Date End Date Patricia Berry MD 230 [place] [address] PCP - General Family Medicine 05/11/21 Craig Ochoa, PharmD [address] [place] [address] Pharmacist Internal Medicine 05/24/23 documented as of this encounter
--- OUTSIDE RECORDS SUMMARY | 2025-07-20 02:35 | XMS_ITS | Encounter Summary ---
Author Organization [employer] Address 75 [facility] 7t [place] [address] Care Team Providers Care Shank Skinner Name Role Phone Patricia Berry MD Primary Care Provider [phone] Craig Ochoa PharmD Unavailable Reason for Visit * Reason Onset Date Comments callback requested 08/13/2024 Encounter Details Date Type Department Care Team ([facility] st Contact Info) Description 08/13/2024 Telephone [facility] MEDICINE 230 [place] [address] Patricia Berry MD 230 [place], [place] [phone] callback requested Social History Tobacco Use Types [...] the past 12 months, has t he [employer], gas, oil or water [employer] threatened to shut off services in your [...] Description 09/06/2025 3:45 PM EST Office Visit [facility] MEDICINE 230 [place] [address] Patricia Berry MD 230 [place] [address] 10/11/2025 2:30 PM EST Clinical Support [facility] MED & PEDS 505 [place] [address] Renee Vazquez, LELE 505 [place] [address] documented as of this encounter Goals Goal [...] documented as of this encounter Care Teams Shank Skinner Relationship Specialty Start Date End Date Patricia Berry MD 230 [place] [address] PCP - General Family Medicine 05/11/21 Craig Ochoa, PharmD 230 [place] [address] Pharmacist Internal Medicine 05/24/23 documented as of this encounter
--- OUTSIDE RECORDS SUMMARY | 2025-07-20 02:35 | XMS_ITS | Encounter Summary ---
Author Organization [employer] Address 75 [facility] 7t [place] [address] Care Team Providers Care Health Spa Manager Name Role Phone Patricia Berry MD Primary Care Provider [phone] Craig Ochoa PharmD Unavailable Reason for Visit * Reason Comments Med Refill Encounter Details Date Type Department Care Team ([facility] st Contact Info) Description 06/12/2024 Refill [facility] MEDICINE 230 [place], [place] [phone] Patricia Berry MD 230 [place], [place] [phone] Social History Tobacco Use Types Packs/Day Years [...] Description 09/06/2025 3:45 PM EST Office Visit [facility] MEDICINE 230 [place] [address] Patricia Berry MD 230 [place] [address] 10/11/2025 2:30 PM EST Clinical Support [facility] MED & PEDS 505 [place] [address] Renee Vazquez, LELE 505 [place] [address] documented as of this encounter Goals Goal [...] documented as of this encounter Care Teams Health Spa Manager Relationship Specialty Start Date End Date Patricia Berry MD [address] [place] [address] PCP - General Family Medicine 05/11/21 Craig Ochoa, ShawnD [address] [place] [address] Pharmacist Internal Medicine 05/24/23 documented as of this encounter
--- OUTSIDE RECORDS SUMMARY | 2025-07-20 02:35 | XMS_ITS | Encounter Summary ---
Author Organization [employer] Address 75 [facility] 7t [place] [address] Care Team Providers Care Senior Sales Manager Name Role Phone Patricia Berry MD Primary Care Provider [phone] Craig Ochoa PharmD Unavailable Reason for Visit * Reason Comments Med Change Request Encounter Details Date Type Department Care Team ([facility] st Contact Info) Description 05/12/2024 Refill [facility] MEDICINE 230 [place], [place] [phone] Patricia Berry MD 230 [place], [place] [phone] Seasonal allergies Social History Tobacco Use Types [...] 09/06/2025 3:45 PM EST Office Visit [facility] MEDICINE [address] [place] [address] Patricia Berry MD 230 [place] [address] 10/11/2025 2:30 PM EST Clinical Support [facility] MED [facility] PEDS 505 [place], [place] [phone] Renee Vazquez, RN 505 [place] [address] documented as of this encounter Goals Goal [...] as of this encounter Care Teams Senior Sales Manager Relationship Specialty Start Date End Date Patricia Berry MD [address] [place] [address] PCP - General Family Medicine 05/11/21 Craig Ochoa, PharmD 230 [place] [address] Pharmacist Internal Medicine 05/24/23 documented as of this encounter
--- OUTSIDE RECORDS SUMMARY | 2025-07-20 02:35 | XMS_ITS | Encounter Summary ---
Author Organization [employer] Address 75 [facility] 7t [place] [address] Care Team Providers Care Guard Manager Name Role Phone Patricia Berry MD Primary Care Provider [phone] Craig Ochoa PharmD Unavailable [phone] Reason for Visit * Reason Onset Date Comments Med Refill 07/19/2025 Encounter Details Date Type Department Care Team (Late st Contact Info) Description 07/19/2025 Telephone [facility] MEDICINE 230 [place] [address] Patricia Berry MD 230 [place], [place] [phone] Med Refill Social History Tobacco Use Types [...] encounter Miscellaneous Notes * Telephone Encounter - Ashlee Lindo - 07/19/2025 2:08 PM EST TC from pt requesting medication refill. Medications needing refill : - traMADol (Ultram) 50 MG tablet To be sent to: - [facility]/pharmacy #[id number] [place], [place] - [address] [place] [address] documented in this encounter Plan of Treatment Upcoming Encounters Date Type Department Care Team (Late st Contact Info) Description 09/06/2025 3:45 PM EST Office Visit [facility] MEDICINE 230 [place] [address] Patricia Berry MD [address] [place] [address] 10/11/2025 2:30 PM EST Clinical Support [facility] MED & PEDS [address] [place] [address] Renee Vazquez RN 505 [place] [address] documented as of this encounter Goals Goal [...] documented as of this encounter Care Teams Guard Manager Relationship Specialty Start Date End Date Patricia Berry MD 230 [place] [address] PCP - General Family Medicine 05/11/21 Craig Ochoa, PharmD [address] [place] [address] Pharmacist Internal Medicine 05/24/23 documented as of this encounter
--- OUTSIDE RECORDS SUMMARY | 2025-07-20 02:35 | XMS_ITS | Encounter Summary ---
Author Organization [employer] Address [address] [facility] 7t [place] [address] Care Team Providers Care Quick Print Operator Name Role Phone Patricia Berry MD Primary Care Provider [phone] Craig Ochoa PharmD Unavailable [phone] Reason for Visit * Reason Onset Date Comments Med Refill 06/16/2025 Encounter Details Date Type Department Care Team (Late st Contact Info) Description 06/16/2025 Telephone [facility] MEDICINE [address] [place] [address] Patricia Berry MD [address] [place], [place] [phone] Med Refill Social History Tobacco Use Types [...] encounter Miscellaneous Notes * Telephone Encounter - Christopher Lambert - 06/16/2025 11:34 AM EST TC from pt requesting medication refill. Medications needing refill : traMADol (Ultram) 50 MG tablet To be sent to: [facility]/pharmacy [address] [place] [address] documented in this encounter Plan of Treatment Upcoming Encounters Date Type Department Care Team (Late st Contact Info) Description 09/06/2025 3:45 PM EST Office Visit [facility] MEDICINE [address] [place] [address] Patricia Berry MD [address] [place] [address] 10/11/2025 2:30 PM EST Clinical Support [facility] MED & PEDS [address] [place] [address] Renee Vazquez, LELE [address] [place] [address] documented as of this encounter Goals Goal [...] documented as of this encounter Care Teams Quick Print Operator Relationship Specialty Start Date End Date Patricia Berry MD [address] [place] [address] PCP - General Family Medicine 05/11/21 Craig Ochoa, PharmD [address] [place] [address] Pharmacist Internal Medicine 05/24/23 documented as of this encounter
--- OUTSIDE RECORDS SUMMARY | 2025-07-20 02:35 | XMS_ITS | Encounter Summary ---
Author Organization [employer] Address 75 [facility] 7t [place] [address] Care Team Providers Care Corporate Analyst Name Role Phone Patricia Berry MD Primary Care Provider [phone] Craig Ochoa PharmD Unavailable [phone] Reason for Visit * Reason Comments Med Refill Encounter Details Date Type Department Care Team ([facility] st Contact Info) Description 07/15/2025 Refill [facility] [address] [place] [address] Patricia Berry MD [address] [place], [place] [phone] Social History Tobacco Use Types Packs/Day Years [...] Description 09/06/2025 3:45 PM EST Office Visit [facility] MEDICINE [address] [place] [address] Patricia Berry MD [address] [place] [address] 10/11/2025 2:30 PM EST Clinical Support [facility] MED & PEDS [address] [place] [address] Renee Vazquez, LELE [address] [place] [address] documented as of this encounter Goals Goal [...] documented as of this encounter Care Teams Corporate Analyst Relationship Specialty Start Date End Date Patricia Berry MD [address] [place] [address] PCP - General Family Medicine 05/11/21 Craig Ochoa, Caroline [address] [place] [address] Pharmacist Internal Medicine 05/24/23 documented as of this encounter
--- OUTSIDE RECORDS SUMMARY | 2025-07-20 02:35 | XMS_ITS | Encounter Summary ---
Author Organization [employer] Address 75 [facility] 7t [place] [address] Care Team Providers Care Supervisor Machine Workers Name Role Phone Patricia Berry MD Primary Care Provider [phone] Craig Ochoa PharmD Unavailable [phone] Reason for Visit * Reason Comments Med Refill Encounter Details Date Type Department Care Team (Late st Contact Info) Description 03/07/2024 Refill [facility] MED [facility] PEDS [address] [place], [place] [phone] Patricia Berry MD [address] [place] [address] Chronic pain syndrome Social History Tobacco Use [...] Description 09/06/2025 3:45 PM EST Office Visit [facility] MEDICINE [address] [place] [address] Patricia Berry MD [address] [place] [address] 10/11/2025 2:30 PM EST Clinical Support [facility] MED [facility] PEDS [address] [place], [place] [phone] Renee Vazquez, RN [address] [place] [address] documented as of this encounter Goals Goal [...] documented as of this encounter Care Teams Supervisor Machine Workers Relationship Specialty Start Date End Date Patricia Berry MD [address] [place] [address] PCP - General Family Medicine 05/11/21 Craig Ochoa PharmD [address] [place] [address] Pharmacist Internal Medicine 05/24/23 documented as of this encounter
--- OUTSIDE RECORDS SUMMARY | 2025-07-20 02:35 | XMS_ITS | Encounter Summary ---
Author Organization [employer] Address 75 [facility] 7t [place] [address] Care Team Providers Care Community Health Program Coordinator Name Role Phone Patricia Berry MD Primary Care Provider [phone] Craig Ochoa PharmD Unavailable [phone] Reason for Visit * Reason Comments Med Change Request Encounter Details Date Type Department Care Team ([facility] st Contact Info) Description 12/25/2024 Refill [facility] MEDICINE [address] [place], [place] [phone] Patricia Berry MD [address] [place], [place] [phone] Social History Tobacco Use Types Packs/Day Years [...] Description 09/06/2025 3:45 PM EST Office Visit [facility] MEDICINE [address] [place] [address] Patricia Berry MD [address] [place] [address] 10/11/2025 2:30 PM EST Clinical Support [facility] MED [facility] PEDS [address] [place] [address] Renee Vazquez, LELE [address] [place] [address] documented as of this encounter Goals Goal [...] documented as of this encounter Care Teams Community Health Program Coordinator Relationship Specialty Start Date End Date Patricia Berry MD [address] [place], [place] [phone] PCP - General Family Medicine 05/11/21 Craig Ochoa, Caroline [address] [place], [place] [phone] Pharmacist Internal Medicine 05/24/23 documented as of this encounter
--- OUTSIDE RECORDS SUMMARY | 2025-07-20 02:35 | XMS_ITS | Encounter Summary ---
Author Organization [employer] Address 75 [facility] 7t [place] [address] Care Team Providers Care Junior Paralegal Name Role Phone Patricia Berry MD Primary Care Provider [phone] Craig Ochoa PharmD Unavailable [phone] Reason for Visit * Reason Onset Date Comments Med Refill 10/08/2024 Encounter Details Date Type Department Care Team (Late st Contact Info) Description 10/08/2024 Telephone [facility] MEDICINE [address] [place], [place] [phone] Patricia Berry MD [address] [place], [place] [phone] Med Refill Social History Tobacco Use Types [...] the past 12 months, has t he [employer], gas, oil or water [employer] threatened to shut off services in your [...] tablet To be sent to: [facility]/pharmacy #[id number] [place] [address] - [address] [place] [address] documented in this encounter Plan of Treatment Upcoming Encounters Date Type Department Care Team (Late st Contact Info) Description 09/06/2025 3:45 PM EST Office Visit [facility] MEDICINE [address] [place] [address] Patricia Berry MD [address] [place] [address] 10/11/2025 2:30 PM EST Clinical Support [facility] MED [facility] PEDS [address] [place] [address] Renee Vazquez, RN [address] [place] [address] documented as of this encounter Goals Goal [...] documented as of this encounter Care Teams Junior Paralegal Relationship Specialty Start Date End Date Patricia Berry MD [address] [place] [address] PCP - General Family Medicine 05/11/21 Craig Ochoa, PharmD [address] [place] [address] Pharmacist Internal Medicine 05/24/23 documented as of this encounter
--- OUTSIDE RECORDS SUMMARY | 2025-07-20 02:35 | XMS_ITS | Encounter Summary ---
Author Organization [employer] Address 75 [facility] 7t [place] [address] Care Team Providers Care Business Center Representative Name Role Phone Patricia Berry MD Primary Care Provider [phone] Craig Ochoa PharmD Unavailable [phone] Encounter Details Date Type Department Care Team ([facility] st Contact Info) Description 06/15/2025 Orders Only [facility] MEDICINE [address] [place], [place] [phone] Patricia Berry MD [address] [place], [place] [phone] Social History Tobacco Use Types Packs/Day Years [...] 3:45 PM EST Office Visit [facility] MEDICINE [address] [place] [address] Patricia Berry MD [address] [place] [address] 10/11/2025 2:30 PM EST Clinical Support [facility] MED [facility] PEDS [address] [place] [address] Renee Vazquez, LELE [address] [place] [address] documented as of this encounter Goals Goal Patient Goal Type Associated Problems Recent Progress Patient-Stated? Author Blood Pressure < 140/90 Blood Pressure 110/72( 025 2:15 PM EDT) Craig Ramsey, PharmD documented as of this encounter Visit Diagnoses Not on filedocumented in this encounter Additional Health Concerns Assessment Noted Time PHQ-9 Depression Total Score: 10 025 4:22 PM EDT documented as of this encounter Care Teams Business Center Representative Relationship Specialty Start Date End Date Patricia Berry MD [address] [place], [place] [phone] PCP - General Family Medicine 05/11/21 Craig Ochoa, ShawnD [address] [place] [address] Pharmacist Internal Medicine 05/24/23 documented as of this encounter
--- OUTSIDE RECORDS SUMMARY | 2025-07-20 02:35 | XMS_ITS | Encounter Summary ---
Author Organization [employer] Address 75 [facility] 7t [place] [address] Care Team Providers Care Power Generation Turbine Room Operator Name Role Phone Patricia Berry MD Primary Care Provider [phone] Craig Ochoa PharmD Unavailable [phone] Reason for Visit * Reason Onset Date Comments Med Refill 09/08/2024 Encounter Details Date Type Department Care Team (Late st Contact Info) Description 09/08/2024 Telephone [facility] MEDICINE [address] [place], [place] [phone] Patricia Berry MD [address] [place], [place] [phone] Med Refill Social History Tobacco Use Types [...] the past 12 months, has t he [employer], gas, oil or water [employer] threatened to shut off services in your [...] 50 MG tablet To be sent to: [facility]/pharmacy #[id number] [place] [address] - [address] [place] [address] documented in this encounter Plan of Treatment Upcoming Encounters Date Type Department Care Team (Late st Contact Info) Description 09/06/2025 3:45 PM EST Office Visit [facility] MEDICINE [address] [place] [address] Patricia Berry MD [address] [place] [address] 10/11/2025 2:30 PM EST Clinical Support [facility] MED & PEDS [address] [place] [address] Renee Vazquez, RN [address] [place] [address] documented as of this encounter Goals Goal [...] documented as of this encounter Care Teams Power Generation Turbine Room Operator Relationship Specialty Start Date End Date Patricia Berry MD [address] [place] [address] PCP - General Family Medicine 05/11/21 Craig Ochoa, PharmD [address] [place] [address] Pharmacist Internal Medicine 05/24/23 documented as of this encounter
--- OUTSIDE RECORDS SUMMARY | 2025-07-20 02:35 | XMS_ITS | Data Portability ---
Author Organization GI Track [facility], [place] [employer] [facility] Address [address] [place] [address] Care Team Providers Care Hassock Maker Name Role Phone HIM CCA OTHER Unavailable Primary Care Provider [phone] Assessment Encounter Date Assessment Date Assessment LastModified by Organization Details LastModified Time 09/22/2024 09/22/2024 service called for back pain [...] Assessment and Plan as documented by the Solar Mechanical Engineer. Patient given the opportunity to ask questions. Our service contacted for an assessment of: Right knee pain As per above, patient is status post right TKA approximately a week ago. Is getting a prescription from Orthopedic surgery to apple picker tomorrow however calls this service as he has had increased pain and would like a shot of Toradol which she has had before. He has no contraindications. Per stripper apprentice on the scene, Vital signs are stable patient is afebrile. Knee is swollen per stripper apprentice on the scene however no evidence of [...] particularly fever chills lightheadedness altered mental status [email or web address] Not available 02/03/2025 20:35:25 06/29/2025 06/29/2025 I provided real -time medical direction via phone for this encounter, and was available for additional phone based assistance as needed. I have reviewed and agree with the Assessment and Plan as documented by the Solar Mechanical Engineer. We discussed the diagnostic uncertainty of home visits and the risk associated with this. In this case the patient and I felt this to be an acceptable and reasonable amount of risk given the benefit of avoiding an ED visit. Advised if headache worsens or he develops any new neurosymptoms will need immediate ED evaluation and imaging/treatment. The patient given the opportunity to ask questions. Advised if develops CP/severe SOB/turning blue/uncontrolled n/v/d or black/bloody emesis or stool/ AMS/ syncope/ hi fever /worsening severe headache / focal weakness/numbness acute visual or speech change to go into the ER /to call 911- he verbalized understanding of instructions to the medic [email or web address] Not available 06/29/2025 23:38:36 Plan of Treatment Reminders Order Date Submit Date Provider Last Modified By Organization Details Last Modified Time Details Appointments None recorded. Lab rapid flu (A+B) 2024 025 [facility], [address] [place] [address], [id number] 21:53:55 rapid SARS CoV 2 Ag, QL IA, respiratory specimen 2024 025 [facility], [address] [place] [address], [phone] 21:54:16 Referral None recorded. Procedures None recorded. Surgeries None recorded. Imaging None recorded. Medication Orders ketorolac 30 mg/mL injection solution 2024 025 [email or web address] [id number], [address] [facility], [place], [address], 5 10:59:01 ketorolac 30 mg/mL injection solution 2024 025 [email or web address] [id number], [address] [place] [address], [address], 5 17:26:07 ketorolac 30 mg/mL injection solution 2024 025 [email or web address] [id number], [address] [place], [address], 5 20:28:13 ketorolac 30 mg/mL injection solution 2024 025 [email or web address] [id number], [address] [place] [address], [address], 5 22:10:50 Patient TargetsNo targets recorded. Patient InstructionsNo instructions [...] Not available Not available Not available 06/29/2025 [id number] RxNorm gets heada cheryl Melissa Erwin MD [address] [place] [address],[address], [place], [phone], [employer] 5 10:56:56 636 egg extract food,medi cation Not available Not available Not available 01/30/2022 [id number] RxNorm Not Available [employer] production 5 15:47:23 Medications Name Sig [...] propionate 50 mcg/actuatio n nasal spray,suspen bradly [place] 1 spray twice a day by intranasal [...] height Heart rate Body temperature Oxygen saturation Systolic And Diastolic Provider Name and Address Organization Details Last Updated DateTime 5 96533.4 g 14 /min 172.72 cm 68 /min 98 [degF] 98 % 123/70 mm[Hg] Not Available [employer] - production 5 19:17:41 Date Recorded Heart rate Oxygen saturation Body temperature Respiratory rate Systolic And Diastolic Provider Name and Address Organization Details Last Updated DateTime 5 84 /min 98 % 97.6 [degF] 16 /min 144/78 mm[Hg] Not Available [employer] - production 5 19:54:55 Date Recorded Oxygen saturation Heart rate Respiratory rate Body temperature Systolic And Diastolic Provider Name and Address Organization Details Last Updated DateTime 5 97 % 68 /min 18 /min 98.1 [degF] 122/86 mm[Hg] Not Available [employer] - production 5 17:10:56 Date Recorded Oxygen saturation Heart rate Respiratory rate Body temperature Systolic And Diastolic Provider Name and Address Organization Details Last Updated DateTime 4 99 % 88 /min 16 /min 98.1 [degF] 132/86 mm[Hg] Not Available [employer] - production 4 12:33:11 Date Recorded Oxygen saturation Heart rate Body temperature Respiratory rate Body weight Body height Systolic And Diastolic Provider Name and Address Organization Details Last Updated DateTime 5 95 % 70 /min 98.3 [degF] 18 /min 121853. 096 g 177.8 cm 121/79 mm[Hg] Not Available [employer] - production 5 10:54:34 Social History None recorded. Functional Status None recorded. Mental Status None recorded. Family History Nothing Reported. Medical History No medical history recorded. Past Encounters Encounter ID Performer Location Encounter Start Date Encounter Closed Date Diagnosis/Indication Diagnosis SNOMED-CT Code Diagnosis ICD10 Code Diagnosis IMO Codes Diagnosis Note [id number] Gage Glez MD [facility] [address] [place] [address] 01/15/2022 19:51:24 05/03/2022 11:29:27 Sciatica 09572995 M54.32 Reports long-stand ing history of sciatica, worsened in the setting of lifting a heavy table. No evidence of cord compromise or neurovascu lar injury. Plan for pain control, PCP follow-up. [id number] Melissa Erwin MD [facility] - [facility] [address] [place] [phone] 01/30/2022 18:39:58 04/20/2022 15:04:08 Chronic low back pain [id number] M54.50 acute on chronic- gait off due to plantar fasciitis- flaring up back- cannot get appt w/ back specialist til 03/02. Advised to call in the AM to see if can move up. States ice/ heat/ Tylenol and Motrin not helping. Does not tolerate muscle relaxers- make him too drowsy, Got 30 mg Toradol 01/15 from [facility] w/ some relief- given repeat dose [id number] Maame Hodge MD [facility] - [facility] [address] [place] [id number] 02/26/2022 19:47:23 05/03/2022 18:33:03 Osteoarthritis of knee [id number] M17.9 [id number] Jay Jay Hammond MD [facility] - [facility] [address] [place] [id number] 03/04/2022 00:31:45 04/19/2022 15:39:58 Pain of left heel [id number] 305071 M79.672 51yo man presents with pain due [...] [id number] Vincent Quinonez MD Main - [facility] [address] [place] [id number] 03/10/2022 11:06:47 05/07/2022 12:27:39 Pain of right knee joint [id number] 52806 M25.561 Will give Toradol 30mg IM. Has close f/u with PCP. [id number] Concha Jacobs MD [facility] - [facility] [address] [place] [phone] 12/11/2022 17:48:00 12/13/2022 09:21:21 Maxillary sinus pain [id number] R51.9 Evaluation in the field was performed by my stripper apprentice colleague, as noted above, I provided real-time direction and supervisio n for this visit. 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 [id number] BRAXTON FRANKLIN MD [facility] - [facility] [address] [place] [phone] 10/18/2023 19:19:43 10/20/2023 16:24:48 Sciatica [id number] M54.32 [id number] Niels Healy MD [facility] - [facility] [address] [place] [id number] 11/13/2023 15:17:37 11/13/2023 20:03:22 Left side sciatica [id number] 82763 M54.32 This 52-year-ol d male has left leg sciatica that is acting up today. He will be having surgery for this in several weeks. OTC medication s have not been effective. He has responded to Toradol in the past. I ordered Toradol 30 mg IM. He will follow-up with his PCP. The patient agreed with this plan. [id number] Jay Jay Hammond MD [facility] - [facility] [address] [place] [phone] 12/31/2023 15:43:52 12/31/2023 17:52:20 Mechanical low back pain [id number] M54.50 53yo presents with acute on chronic [...] will call surgeon's office if pain persists. [id number] Keenan Booker MD [facility] - [facility] [address] [place] [phone] 01/09/2024 19:33:53 01/10/2024 10:26:18 Low back pain [id number] M54.50 [id number] Keenan Booker MD [facility] - [facility] [address] [place] [phone] 01/29/2024 07:01:45 01/29/2024 21:26:39 Low back pain [id number] M54.50 [id number] Cindy Peter MD [facility] - [facility] [address] [place] [phone] 02/29/2024 16:26:32 03/01/2024 09:26:02 Pain of left knee joint [id number] 93868 M25.562 As noted, we were called to see this patient regarding concerns of knee pain. Evaluation in the field was performed by my stripper apprentice colleague, as noted above, I provided real-time [...] chest pain, dyspnea, changes to urine output. [id number] Gage Glez MD [facility] - [address] [address] 04/30/2024 12:33:07 04/30/2024 20:44:34 Pain in lower limb [id number] M79.606 Patient reporting pain in his lower extremity after surgery. On stripper apprentice arrival, patient had just finished up a call with his primary surgical team and was advised that his symptoms were to be expected post-proce durally and he should continue his prescribed pain regimen. We encouraged him to continue to follow-up with his orthopedic team. [id number] Maame Hodge MD [facility] - [address] [phone] 09/22/2024 19:17:39 09/22/2024 23:01:05 Low back strain [id number] S39.012A [id number] Sherri Saez MD [facility] [address] [phone] 02/03/2025 19:53:33 02/03/2025 21:24:39 Pain of right knee joint 7506402370 14731 M25.561 [id number] Concha Jacobs MD [facility] [address] [phone] 03/26/2025 17:02:07 03/26/2025 20:44:58 Low back pain 217910112 M54.50 [id number] Evaluation in the field was performed by my stripper apprentice colleague, as noted above, I provided real-time direction and supervisio n for this visit.This is a 54yo M PMhx HTN, chronic back pain s/p prior fusion who is p/w flare in chronic back pain, no trauma or falls. No loss of bowel/blad frankie or neurologic deficits. Last ibuprofen > 8 hours ago. No hx CKD, NSAID allergy, gastric bypass, not on anticoagul ation. VS: baselinePa ramedic exam: normal gaitPOC testing: none Impression : AoC low back pain without trauma or red flags for urgent imagingPla n: ketoralac 15 mg after discussion of risks/bene fits, encourage PCP f/up for pain control planRed flags reviewed, pt expressed understand ing For PCP: consider uptitratio n of baseline pain control regimen We discussed the diagnostic uncertaint y of [...] shortness of breath, cough, chest pain, fever. [id number] Melissa Erwin MD [facility] [address] [phone] 06/29/2025 10:54:29 06/30/2025 10:36:43 Headache 57212774 R51.9 [id number] ? tension VILCHIS-Patient has had ketorolac before with good relief [...] Leiva Member ID Guarantor Name 09/22/2024 1 [facility] - DOS PRIOR TO 2022 - DUAL ELIGIBLE (MEDICARE REPLACEMENT/ADV ANTAGE - HMO) Brady Dale [id number] Brady Dale 06/29/2025 1 [facility] - DOS ON OR AFTER 2022 - DUAL ELIGIBLE - [employer] AND ONE CARE (MEDICARE REPLACEMENT/ADV ANTAGE - HMO) Brady Dale [id number] Brady Dale Notes Date Note Type Note Provider Name and Address Organization Details Recorded Time 04/30/2024 text/html CRC Nurse Triage Notes (Sylvain Caban): Reason For Request: recent knee replacement Chief Complaints: Pain, Edema PMH: Hypertension, COPD/Asthma Allergies: Egg Comments: Manager Of Loss Prevention Operations verified the member's name//address and phone number. [...] .................... .................... .................... .................... .................... .................... . Solar Mechanical Engineer Note From Shaun Mujica: Dispatched to above [...] of infection, no obvious bruising or redness. [facility] contacted, spoke with Dr. Laura, advised of patient complaints and exam findings. [facility] recommends home care and follow up with surgical team. Patient advised of [facility] recommendations, home care and red flags. Patient has no additional questions or concerns at this time. SC8 clear. EOR. .................... .................... .................... .................... .................... .................... .................... . Disposition: Fulfilled Gage Glez MD [address] [place] [address],[address], [place], [address], [employer] 04/30/2024 17:04:55 09/22/2024 text/html CRC Nurse Triage [...] Allergies Reviewed at 09/22/2024 - 15:47 Comments: Manager Of Loss Prevention Operations verified the name//address and phone number. He [...] .................... .................... .................... .................... .................... .................... . Solar Mechanical Engineer Note From Earnest Salgado: Patient alert and [...] .................... .................... .................... .................... .................... .................... . [facility] Consulted: Maame Hodge .................... .................... .................... .................... .................... .................... .................... . Disposition: Fulfilled Maame Hodge MD [address] [place] [address],[address], [place], [address], [employer] 09/22/2024 22:11:06 02/03/2025 text/html CRC Nurse Triage Notes (Penny Moore): Reason For Request: knee pain from surgery Chief Complaints: Extremity Pain PMH: Hypertension, COPD/Asthma, Chronic Pain PMH Reviewed at 02/03/2025 - 19:09 Allergies Reviewed at 02/03/2025 - 19:09 Comments: 54 y.o male complains of Extremity Pain Patient had Total knee replacement on 01/13 has run out of pain medication three days ago and states he can hardly move his L knee. Pain 8/10 It is warm and swollen and denies any redness. Denies any fever or chills and no other complaints. reviewed red flags I provided information on the mobile health provider response time and advised the patient and/or caregiver to monitor reported signs and symptoms. I discussed the warning signs of when to seek emergency care. .................... .................... .................... .................... .................... .................... .................... . Solar Mechanical Engineer Note From Benji Sampson: Dispatched to the call address for the [...] PERRL, afebrile, +CMSx4, -edema, +Swelling in right knee, -erythema/warmth: non infected appearing. Knee pain. Pt was assessed. [facility] consulted. Pt given 30mg IM Ketorolac (Left Deltoid) after confirming 5 med rights. Red flags discussed. ALL times are approx. [facility] Medication Orders: ketorolac 30 mg/mL injection solution: Administered .................... .................... .................... .................... .................... .................... .................... . [facility] Consulted: Sherri Saez .................... .................... .................... .................... .................... .................... .................... . Disposition: Fulfilled Sherri Saez MD [address] [facility],[address], [place], [address], [employer] 02/03/2025 20:47:03 03/26/2025 text/html CRC Nurse Triage Notes (Wilfredo Church): Reason For Request: Back pain Denies: Falls with head strike and LOC Falls from a standing position, no LOC, patient is amnestic to the event Falls with isolated injury and deformity noted to limb Falls with inability to move post fall Cool extremities after fall or injury Weakness with fall, able to move all extremities Chief Complaints: Back Pain PMH: Hypertension, COPD/Asthma, Chronic Pain PMH Reviewed at 03/26/2025 - 14:50 Allergies Reviewed at 03/26/2025 - 14:50 Comments: 54 y.o male complains of Back Pain x3 days Pt reports feeling unwell with back pain - History of a back Fusion. 05/21 Denies any new injuries/trauma - Denies fever - Denies falls Reports taking Tylenol and Motrin with no relief Wellness check requested I provided information on the mobile health provider response time and advised the patient and/or caregiver to monitor reported signs and symptoms. I discussed the warning signs of when to seek emergency care. .................... .................... .................... .................... .................... .................... .................... . Solar Mechanical Engineer Note From Aleena Prather: Pt is sitting on the couch upon arrival. A/O x3, pt states he woke up three days ago with increased back pain. Pt did take Tylenol and 800mg ibuprofen at 8 am w/o relief. Pt describes the pain as throbbing. Pt is pink/warm/dry and not in any immediate respiratory distress. Pt denies any CP, SOB, nausea, dizziness and/or headache. Pt has hx of L5 fusion. Vitals as noted. [facility] contacted and pt ordered 15mg toradol IM. Pt was administered medication into his right arm w/o incident. Pt was advised that if he develops CP, SOB, nausea, dizziness and/or hives, swelling to call 911. Pt agreed and call was cleared. [facility] Medication Orders: ketorolac 30 mg/mL injection solution: Administered Comment: 15mg administered IM .................... .................... .................... .................... .................... .................... .................... . [facility] Consulted: Concha Jacobs .................... .................... .................... .................... .................... .................... .................... . Disposition: Fulfilled Concha Jacobs MD [address] [facility],[address], [place], [address], [facility] [employer] MATHEW 03/26/2025 17:57:09 06/29/2025 text/html ROS as noted in the HPI CRC Nurse Triage Notes (Fartun Cnaales): Reason For Request: headache Denies: Worst Headache [...] signs of when to seek emergency care. Solar Mechanical Engineer Organization Information for [facility] [employer] Legal Name: [employer]. Address: [address] [place] [address], Incident Commander: Catalino Ureña MD CLIA No.: [id number] Solar Mechanical Engineer POC Test Results from [facility] Rapid COVID antigen (10:47:12) COVID: - Attachments uploaded as part of this test result can be found under Documents section. Rapid influenza antigen (10:47:13) Flu: - .................... .................... .................... .................... .................... .................... .................... . Solar Mechanical Engineer Note From Antonia Kellogg: SC6 responds to the listed address for a 54 yom w/ a c/c of VILCHIS. Upon arrival on scene, pt is awaiting [facility] at the front door to his well kept home. He is smiling on approach and welcomes MI inside. Pt is generally well-appearing and NAD is present. He walks unencumbered through the living area and sits on the sofa for evaluation. He is moving all extremities in a smooth and coordinated manner and he is answering all questions using a linear and logical thought pattern. Pt is endorsing a bad VILCHIS that started yesterday morning upon waking. He [...] eyes dilated. He continued to have his VILCHIS during the appointment so he was evaluated for possible ocular involvement and nothing was found. He was sent home w/ dark glasses. Pt endorses light and noise sensitivity yesterday afternoon and had some relief w/ a dark and quiet environment. He called late in the evening for an [facility] visit, but he visit could not be [...] muscle control or coordination. Ddx: migraine, tension vilchis, hypertensive emergency, COVID/flu [facility] performs a FAST exam and gross cranial [...] answers all questions and follows all commands. [facility] contacts [facility] and discusses the above. [facility] orders 30mg toradol IM for pt after confirming allergies and recommends alternating heat and cold for pain relief, no more NSAIDS for today, and continued Tylenol 3x/day as needed. [facility] administers 30mg toradol IM in the R deltoid using aseptic technique. Pt is advised to seek emergency care if he develops a worsening VILCHIS, high fever, any neuro deficits, syncope, or black/bloody stools. Pt is left in stable condition. [facility] is clear. Report completed by SHAHID Kellogg [id number]. [facility] Lab Orders: rapid flu (A+B): Performed rapid SARS CoV 2 Ag, QL IA, respiratory specimen: Performed [facility] Medication Orders: ketorolac 30 mg/mL injection solution: Administered Comment: R deltoid .................... .................... .................... .................... .................... .................... .................... . [facility] Consulted: Melissa Erwin .................... .................... .................... .................... .................... .................... .................... . Disposition: Fulfilled Melissa Erwin MD [address] [place] [address],[address], [place], [address], [facility] KUMAR 06/29/2025 23:38:47
--- OUTSIDE RECORDS SUMMARY | 2025-07-20 02:35 | XMS_ITS | Encounter Summary ---
Author Organization [employer] Address [address] [facility] [address] [place] [address] Care Team Providers Care Locomotive Mechanic Name Role Phone Patricia Berry MD Primary Care Provider [phone] Craig Ochoa PharmD Unavailable [phone] Reason for Visit * Reason Comments Med Refill Encounter Details Date Type Department Care Team (Late st Contact Info) Description 03/17/2025 Refill [facility] [address] [place] [address] Heena Vasquez MD [address] [place] [address] Primary hypertension Social History Tobacco Use Types Packs/Day Years [...] Description 09/06/2025 3:45 PM EST Office Visit [facility] [address] [place] [address] Patricia Berry MD [address] [place] [address] 10/11/2025 2:30 PM EST Clinical Support [facility] [address] [place] [address] Renee Vazquez, LELE [address] [place] [address] documented as of this encounter Goals Goal Patient Goal Type Associated Problems Recent Progress Patient-Stated? Author Blood Pressure < 140/90 Blood Pressure 110/72( 025 2:15 PM EDT) Craig Ramsey, PharmD documented as of this encounter Visit Diagnoses Diagnosis Primary hypertension Unspecified essential hypertension documented in this encounter Additional Health Concerns Assessment Noted Time PHQ-9 Depression Total Score: 10 025 4:22 PM EDT documented as of this encounter Care Teams Locomotive Mechanic Relationship Specialty Start Date End Date Patricia Berry MD [address], [place] [phone] PCP - General Family Medicine 05/11/21 Craig Ochoa, Caroline [address] [place] [address] Pharmacist Internal Medicine 05/24/23 documented as of this encounter
--- OUTSIDE RECORDS SUMMARY | 2025-07-20 02:35 | XMS_ITS | Encounter Summary ---
Author Organization [employer] Address [address] [facility] [address] [place] [address] Care Team Providers Care Access Database Developer Name Role Phone Patricia Berry MD Primary Care Provider [phone] Craig Ochoa PharmD Unavailable [phone] Reason for Visit * Reason Comments Med Refill Encounter Details Date Type Department Care Team (Late st Contact Info) Description 01/08/2023 Refill [facility] [address] [place] [address] Patricia Berry MD [address] [place] [address] Moderate persistent asthma without complication Social History [...] Description 09/06/2025 3:45 PM EST Office Visit [facility] [address] [place] [address] Patricia Berry MD [address] [place] [address] 10/11/2025 2:30 PM EST Clinical Support [facility] [address] [place] [address] Renee Vazquez, LELE [address] [place] [address] documented as of this encounter Visit Diagnoses Diagnosis Moderate persistent asthma without complication documented in this encounter Care Teams Access Database Developer Relationship Specialty Start Date End Date Patricia Berry MD [address] [place] [phone] PCP - General Family Medicine 05/11/21 Craig Ochoa, PharmD [address] [place] [phone] Pharmacist Internal Medicine 05/24/23 documented as of this encounter
--- OUTSIDE RECORDS SUMMARY | 2025-07-20 02:35 | XMS_ITS | Encounter Summary ---
Author Organization [employer] Address [address] [facility] 7t [place] [address] Care Team Providers Care Gold Prospector Name Role Phone Patricia Berry MD Primary Care Provider [phone] Craig Ochoa PharmD Unavailable [phone] Reason for Referral * Imaging (Routine) - Closed Specialty Diagnoses / Procedures Referred By Contac t Referred To Contact Radiology Diagnoses Transaminitis Procedures US Abdomen Comp w elastography Patricia Berry MD [address] [place] [address] Phone: tel: fax: [address] Phone: tel: fax: Referral ID Status Reason Start Date Expiration Date Visits Re quested Visits Authorized [id number] Closed 06/22/2024 06/22/2025 1 1 Encounter Details Date Type Department Care Team (Late st Contact Info) Description 06/22/2024 Orders Only [facility] [address] [place] [address] [phone] Patricia Berry MD [address] [place], [place] [phone] Transaminitis (Primary Dx) Social History Tobacco Use [...] Visit [facility] [address] [place] [address] Patricia Berry MD [address] [place] [address] 10/11/2025 2:30 PM EST Clinical Support [facility] [address] [place] [address] Renee Vazquez, RN [address] [place] [address] Scheduled Orders Name Type Priority Associated Diagnoses Orde r Schedule Hepatitis B Surface Antigen with Reflex Confirmation Lab Routine Transaminitis Expected: 06/22/2024 (Approximate), Expires: 06/22/2025 Helicobacter pylori Antigen, EIA, Stool Lab Routine Transaminitis Expected: 06/22/2024 [...] Bilirubin, Total 0.3 0.0 - 1.0 mg/dL [facility] Bilirubin, Direct 0.1 0.0 - 0.5 mg/dL [facility] Aspartate Amino Transferase 34 5 - 37 U/L [facility] Alanine Aminotransferase 29 0 - 40 U/L [facility] Total Protein 8.0 6.5 - 8.0 g/dL [facility] Albumin Level 4.0 3.5 - 5.0 g/dL [facility] Alkaline Phosphatase 109 39 - 117 U/L [facility] Blood Venous blood specimen / Unknown 07/02/2024 2:46 PM EST 07/02/2024 2:46 PM EST Patricia Berry MD LAB BLOOD ORDERABLES Final Resul t Performing Organization Address [facility] Co de Phone Number [facility] [address] [place] [phone] * Hepatitis C Antibody with Reflex to HCV, RNA, Quantitative, Real-Time PCR (07/02/2024 2:46 PM EST) Hepatitis C Antibody Nonreactive Nonreactive [facility] Comment:Antibodies to HCV no t detected; does not exclude early acuteHCV infection. Blood Venous blood specimen / Unknown 07/02/2024 2:46 PM EST 07/02/2024 2:46 PM EST Patricia Berry MD LAB BLOOD ORDERABLES Final Resul t Performing Organization Address [facility] Co de Phone Number [facility] [address] [place] [phone] * Hepatitis B Surface Antibody, Qualitative (07/02/2024 2:46 PM EST) ~Hepatitis B Surface Antibody REACTIVE Nonreactive [facility] Comment:REACTIVE: > 11.99 mI U/mL Blood Venous blood specimen / Unknown 07/02/2024 2:46 PM EST 07/02/2024 2:46 PM EST Patricia Berry MD LAB BLOOD ORDERABLES Final Resul t Performing Organization Address City/[facility] Co de Phone Number [facility] [address] [place] [phone] * Hepatitis B Core Antibody, Total (07/02/2024 2:46 PM EST) Hepatitis B Core Antibody Nonreactive Nonreactive [facility] Blood Venous blood specimen / Unknown 07/02/2024 2:46 PM EST 07/02/2024 2:46 PM EST us Patricia Berry MD LAB BLOOD ORDERABLES Final Resul t Performing Organization Address [facility] Co de Phone Number [facility] [address] [place] [phone] * Hepatitis A Antibody, Total (07/02/2024 2:46 PM EST) Hepatitis A Antibody IgG Nonreactive Nonreactive [facility] Blood Venous blood specimen / Unknown 07/02/2024 2:46 PM EST 07/02/2024 2:46 PM EST us Patricia Berry MD LAB BLOOD ORDERABLES Final Resul t Performing Organization Address [facility] Co de Phone Number [facility] [address] [place] [phone] documented in this encounter Visit Diagnoses Diagnosis Transaminitis- Primary Nonspecific elevation of levels of transaminase or lactic acid dehydrogenase (LDH) documented in this encounter Additional Health Concerns Assessment Noted Time PHQ-9 Depression Total Score: 0 11/27/19 24 10:58 AM EDT documented as of this encounter Care Teams Gold Prospector Relationship Specialty Start Date End Date Patricia Berry MD [address] [place] [phone] PCP - General Family Medicine 05/11/21 Craig Ochoa, PharmD [address] [place] [phone] Pharmacist Internal Medicine 05/24/23 documented as of this encounter
--- OUTSIDE RECORDS SUMMARY | 2025-07-20 02:35 | XMS_ITS | Encounter Summary ---
Author Organization [employer] Address [address] [facility] 7[address] [place] [address] Care Team Providers Care Mophead Trimmer And Wrapper Name Role Phone Patricia Berry MD Primary Care Provider [phone] Craig Ochoa PharmD Unavailable [phone] Reason for Referral * Consultation (Routine) - Closed Specialty Diagnoses / Procedures Referred By Contac t Referred To Contact Bariatrics Diagnoses Class 3 severe obesity due to excess calories with serious comorbidity and body mass index (BMI) of 45.0 to 49.9 in adult (HCC) KOBY (obstructive sleep apnea) Patricia Berry MD [address] [place] [address] Phone: tel: fax: Breana Nettles MD [address] [place] [address] [address] [place] [address] Phone: tel: fax: Referral ID Status Reason Start Date Expiration Date V isits Requested Visits Authorized [id number] Closed Specialty Services Required 02/27/2024 02/26/2025 1 1 Encounter Details Date Type Department Care Team (Late st Contact Info) Description 02/27/2024 Orders Only [facility] [address] [place], [place] [phone] Patricia Berry MD [address] [place], [place] [phone] Class 3 severe obesity due to excess calories with serious comorbidity and body mass index (BMI) of 45.0 to 49.9 in adult ([facility]) (Primary Dx); KOBY (obstructive sleep apnea) [...] 09/06/2025 3:45 PM EST Office Visit [facility] [address] [place] [address] Patricia Berry MD [address] [place], [place] [phone] 10/11/2025 2:30 PM EST Clinical Support [facility] [address] [place] [address] Renee Vazquez, RN [address] [place], [place] Scheduled Referrals Name Type Priority Associated Diagnoses Orde r Schedule Referral to Bariatric Surgery Outpatient Referral Routine Class 3 severe obesity due to excess calories with serious comorbidity and body mass index (BMI) of 45.0 to 49.9 in adult ([facility]) KOBY (obstructive sleep apnea) Expected: 02/27/2024 [...] (BMI) of 45.0 to 49.9 in adult ([facility])- Primary KOBY (obstructive sleep apnea) Obstructive sleep apnea (adult) (pediatric) documented in this encounter Additional Health Concerns Assessment Noted Time PHQ-9 Depression Total Score: 0 11/27/19 24 10:58 AM EDT documented as of this encounter Care Teams Mophead Trimmer And Wrapper Relationship Specialty Start Date End Date Patricia Berry MD [address] [place] [address] PCP - General Family Medicine 05/11/21 Craig Ochoa, PharmD [address] [place] [address] Pharmacist Internal Medicine 05/24/23 documented as of this encounter
== END 2025-07-20 01:09 | disposition home or self-care (01) ==
PROVIDERS: Emergency Provider Emergency Medicine; PCP Family Medicine
DX: M25.461 Effusion, right knee (principal); E66.01 Morbid (severe) obesity due to excess calories; Z68.42 Body mass index [BMI] 45.0-49.9, adult; Z96.652 Presence of left artificial knee joint; Z79.899 Other long term (current) drug therapy
CPT/HCPCS: 73560; 99282; 99283

== ENCOUNTER → 2025-07-20 | Outpatient (BNV) | payer OTHER, SELFPAY | PROVIDERS: Emergency Provider Emergency Medicine; PCP Family Medicine; Visit Provider Radiology Diagnostic Radiology | DX: M25.561 Pain in right knee (principal); Z04.3 Encounter for examination and observation following other accident | CPT/HCPCS: 73560 ==